=== PATIENT | male | born 1965 | race Caucasian/White ===

== ENCOUNTER → 2017-10-25 08:42 | Outpatient (CLI) | payer OTHER, SELFPAY ==
--- NOTE | 2017-10-25 08:44 | RAD_ITS ---
STUDY: X-RAY - ESOPHAGUS (BARIUM SWALLOW) WITH FLUOROSCOPY REASON FOR EXAM: Male, 52 years old. One-year history of dysphagia. TECHNIQUE: 17 view(s) of the esophagus were obtained following swallowing of barium. FLUOROSCOPY TIME (if supplied): (0:25) minutes/seconds COMPARISON: None. FINDINGS: There is no demonstrated esophageal foreign body. There is no demonstrated stricture or mucosal abnormality. There is a small hiatal hernia without gastric esophageal reflux. The patient ingested a 12 mm tablet of barium without any difficulty. Normal visualized aortic arch and descending thoracic aorta. Normal visualized pulmonary parenchyma. Normal visualized osseous structures of the thorax. RAD/Esophagus Only IMPRESSION: Small sliding hiatal hernia without evidence of gastroesophageal reflux at this time. Electronically Signed: Christiano Montoya MD at 9:22 EDT Tel [phone], Service support ,
== END ==
PROVIDERS: Family Provider Internal Medicine; PCP Internal Medicine; Visit Provider Internal Medicine
DX: R13.10 Dysphagia, unspecified (principal)
CPT/HCPCS: 74220

== ENCOUNTER 2019-08-03 22:50 | Emergency (ER) | payer OTHER, SELFPAY ==
[2019-08-03 22:51] VITALS: BP 177/101; PULSE 90; RESP 16; TEMP 36.4; O2SAT 100; BMI 24.9
--- NOTE | 2019-08-03 23:09 | EKG12_ITS ---
Test Reason : PAIN Blood Pressure : / mmHG Vent. Rate : 081 BPM Atrial Rate : 081 BPM P-R Int : 160 ms QRS Dur : 086 ms QT Int : 382 ms P-R-T Axes : 067 060 044 degrees QTc Int : 443 ms Normal sinus rhythm Normal ECG Confirmed by CLAU REYEZ, ROJELIO ([id number]), telegraph editor PRISCILLA VALENCIA ([id number]) on 08/05/2019 9:16:53 AM Referred By: AG Confirmed By:ROJELIO OLGUIN MD
--- NOTE | 2019-08-03 23:12 | ED.RN ---
NO OLD EKGS IN MUSE
[2019-08-03] MEDS: 0.9% Normal Saline 1,000 ML 999 ML IV (23:14)
[2019-08-03] MEDS: Ondansetron 4 MG/2 ML Vial IV (23:14)
--- NOTE | 2019-08-03 23:16 | PCM.CONS.GEN ---
Problem List (1) Food impaction of esophagus Status: Acute Qualifiers: Encounter type: initial encounter Qualified Code(s): T18.128A - Food in esophagus causing other injury, initial encounter Reason for Consult Date of Consultation: 08/03/19 History of Present Illness: The patient is a 54 year old M presented to the emergency room with inability to control his secretions. The patient reports that he ate steak today and he is now having substernal chest pain and unable to swallow saliva. He has tried warm water and cola. The patient reports he has had food stuck in his esophagus about 20 times. He is never had an EGD. He is on a PPI but has not been for the last few days. He takes a large amount of NSAIDs. Past Medical History Allergies No Known Allergies Allergy (Verified 08/03/19 22:51) Home Medications: Ambulatory Orders Medication Instructions Recorded Finasteride 1 mg PO DAILY 08/03/19 Insulin Aspart [Novolog Flexpen] See Protocol SQ DAILY 08/03/19 Insulin Glargine [Lantus SoloStar 08/03/19 Pen] Insulin Glargine [Lantus SoloStar 16 units SQ DAILY 08/03/19 Pen] Levothyroxine [Synthroid] 175 mcg PO DAILY 08/03/19 Lisinopril [Zestril] 2.5 mg PO DAILY 08/03/19 Omeprazole 20 mg PO DAILY 08/03/19 Rosuvastatin Calcium [Crestor] 10 mg PO QODAY 08/03/19 Sildenafil Citrate [Viagra] 100 mg PO PRN PRN 08/03/19 Surgical History: no surgical history Smoking Status: Never smoker - *Family History Sibling History Items: - - Holly's esophagus Review of Systems Constitutional: Denies: Anorexia, Fever HEENT: Reports: Difficulty Swallowing Cardiovascular: Reports: Chest Pain Respiratory: Denies: Cough, Shortness of Breath Gastrointestinal: Denies: Abdominal Pain Genitourinary: Denies: Dysuria Musculoskeletal: Reports: Back Pain. Denies: Joint Tenderness - Physical Exam Vitals/I&O's: Vital Signs Temp Pulse Resp BP Pulse Ox 97.6 F L 90 16 177/101 H 100 08/03/19 22:51 08/03/19 22:51 08/03/19 22:51 08/03/19 22:51 08/03/19 22:51 Oxygen Delivery Method Room Air Weight: 189 lb 2.506 oz Body Mass Index (BMI) 24.9 General: Alert, Oriented x3 Lungs: Normal air movement Cardiovascular: Regular rate, Regular Rhythm Abdomen: Soft, Non Tender, Non-Distended Current Medications Sodium Chloride () 1,000 mls @ 999 mls/hr IV .Q1H1M ONE Stop: 08/04/19 00:09 Last Admin: 08/03/19 23:14 Dose: 999 mls/hr Documented by: Assessment/Plan All Active Problems Food impaction of esophagus (Acute) 54-year-old male with esophageal food impaction 1. The patient has esophageal food impaction likely steak. The patient has a longstanding history of GERD as well as food impactions in the past. He is never had an EGD. 2. I recommend the patient have EGD with removal of the impacted foreign body. I do recommend that the patient have an outpatient EGD in the next week or two with biopsies and possible dilation. 3. I explained endoscopy in detail to the patient. I explained the risks including but not limited to stroke or heart attack with anesthesia, perforation of the GI tract, bleeding, infection. I explained that any of these could necessitate further emergency surgery. The patient understands and all questions were answered sufficiently. The patient wishes to proceed with procedure. Jai Shepard MD Pager: [facility] [address] [place] [address], [address] [place] [address] Office:
[2019-08-03 23:17] VITALS: BP 184/93; PULSE 91; RESP 20; O2SAT 100
--- NOTE | 2019-08-03 23:30 | ED.DCSUM_ITS ---
History of Present Illness Chief Complaint: Foreign Body Informant: Patient, Family Onset: Today Context: Sudden Onset Timing: Continuous Narrative: Patient is a 54-year-old male with history of diabetes mellitus type 1, hyperlipidemia, hypertension, hypothyroid and coronary artery disease presenting with food stuck in his throat. Patient was eating steak at 6 PM and piece got stuck in his esophagus. He was unable to spit it up or throwing up. He has no associated respiratory symptoms. Has not been able to swallow anything since and is not able to swallow his secretions. Patient to become hypoglycemic at home because he took his insulin right before eating. His blood sugar was 47. His who is a physician gave him dextrose and IV fluids. Patient states he often gets food stuck in his esophagus but is normally able to pass it and does not need to come to the emergency room. He had a colonoscopy but never had an EGD. He states his symptoms are usually better when he takes his omeprazole but he skipped a dose today. Patient denies any other complaints at this time. He does not have an insulin pump. He does not drink alcohol. He is never had any difficulty with sedation. Past Medical History - Allergies and Home Meds Allergies/Adverse Reactions: Allergies No Known Allergies Allergy (Verified 08/03/19 22:51) Primary Care Physician: Lina Kumar DO [Primary Care Provider] - Past Medical History: - - Hypertension, type 1 diabetes mellitus, hyperlip idemia, coronary artery disease, hypothyroid Surgical History: - - Colonoscopy Lives: Spouse/ Significant Other Smoking Status: Never smoker Alcohol: None Drugs: None Review of Systems General: Denies: Chills, Fever, Sweats Eyes: Denies: Visual changes - bilaterally, Diplopia ENT: Reports: - - Difficulty swallowing. Denies: Rhinorrhea, Sore throat Cardiovascular: Reports: Chest pain - Secondary to foreign body sensation in esophagus. Denies: Palpitations Respiratory: Denies: Dyspnea, Cough, Dyspnea on exertion Gastrointestinal: Reports: Nausea, Vomiting. Denies: Abdominal pain, Diarrhea, Melena, Hematochezia Genitourinary: Denies: Dysuria, Hematuria, Frequency Musculoskeletal: Denies: Back pain, Extremity Pain Skin: Denies: Rash, Wounds Neurological: Denies: Headache, Weakness, Numbness Physical Exam Vital Signs/Narrative: Vital Signs Temp Pulse Resp BP Pulse Ox 08/03/19 23:17 91 20 H 184/93 H 100 08/03/19 22:51 97.6 F L 90 16 177/101 H 100 Inital Vital Signs reviewed: Yes General: Well nourished, Well developed, No Acute Distress Head: Normocephalic, Atraumatic Eyes: Perrl, EOMI ENT: Moist mucous membranes, No rhinorrhea, - Neck: Supple, Nontender Cardiovascular: Regular rate, Regular rhythm, No murmurs Respiratory: No distress, CTA bilaterally, Chest nontender Abdomen: Soft, Nontender, Nondistended, Normal bowel sounds, - - Patient continually spitting up his secretions Back: Nontender, Normal Inspection Extremities: Nontender, No edema Skin: Normal color, No rash Neurological: Alert, Oriented x3, Cranial nerves II-XII grossly intact, Normal Strength, Normal Sensation Psychological: Normal affect, Normal Mood Diagnostic/Tx/Re-eval - Rhythm Strip Rhythm Strip: Sinus Rhythm Rate: 81 Ectopy: None - EKG Initial EKG Interpretation: Sinus Rhythm, - - Normal sinus rhythm at a rate of 81 Normal intervals Normal axis Normal ST segments - Medical Decision Making Patient evaluated for esophageal food impaction. Bedside EGD performed by Dr. Erwin See sedation note. Patient is able to drink water prior to discharge. He is monitored until sedation wears off. He is taken home by his . Patient is counseled on signs and symptoms requiring return to the em ergency room. Patient verbalizes agreement and understand this plan. Patient discharged home in stable and improved condition. Procedures Procedure(s): Procedural sedation for EGD-. EGD performed by Dr. Erwin. Patient placed on telemetry as well as end-tidal CO2. He is oxygenated on 6 L nasal cannula throughout the procedure. Patient is given a total of 140 mg of ibuprofen follow through small aliquots until adequate sedation is achieved throughout the procedure. Patient is a very small episode of drooling and regurgitation of a very small amount of stomach contents but no signs of aspiration. He has no hypoxia, apnea or hemodynamic instability throughout. Patient is monitored after the procedure until he has return of normal mentation. No obvious complications. Patient tolerated procedure well. ED Disposition - Plan for ED Patient: Disposition: Home or Assisted Living Diagnosis: Food impaction of esophagus Instructions: ESOPHAGEAL FOREIGN BODY, Resolved Referrals: Lina Kumar DO [Primary Care Provider] - Jai Shepard MD [STAFF PHYSICIAN] - Additional Instructions: Continue your omeprazole. Liquid diet for the next 24 hours then transition to a soft diet for total of 48 hours. Follow-up with Dr. Shepard for repeat endoscopy in 1 to 2 weeks. Return to emergency with any worsening symptoms.
[2019-08-03 23:35] VITALS: BP 174/107; PULSE 113; PULSE 123; PULSE 84; PULSE 92; RESP 13; RESP 14; RESP 16; RESP 27; O2SAT 100; O2SAT 99
[2019-08-03 23:42] VITALS: BP 168/83; PULSE 89; RESP 17; O2SAT 98
[2019-08-03] MEDS: Propofol 200 MG/20 ML Vial IV BOLUS (23:43)
[2019-08-03 23:47] VITALS: BP 141/71; PULSE 84; RESP 22; O2SAT 99
[2019-08-03 23:52] VITALS: BP 130/72; PULSE 79; RESP 21; O2SAT 99
[2019-08-04] VITALS: BP 117/60; PULSE 76; RESP 17; O2SAT 99
--- NOTE | 2019-08-04 | OP.EGD_ITS ---
Patient Name: Kashmir Price Procedure Date: 08/03/2019 11:29 PM Date of : 1965 Age: 54 Procedure: Upper GI endoscopy Indications: Foreign body in the esophagus Providers: Jai Shepard MD Medicines: Monitored Anesthesia Care Patient Profile: This is a 54 year old male. Refer to note in patient chart for documentation of history and physical. Complications: No immediate complications. Estimated blood loss: Minimal. Procedure: Pre-Anesthesia Assessment: - Prior to the procedure, a History and Physical was performed, and patient medications and allergies were reviewed. The patient's tolerance of previous anesthesia was also reviewed. The risks and benefits of the procedure and the sedation options and risks were discussed with the patient. All questions were answered, and informed consent was obtained. Prior Anticoagulants: The patient has taken no previous anticoagulant or antiplatelet agents. After reviewing the risks and benefits, the patient was deemed in satisfactory condition to undergo the procedure. After obtaining informed consent, the endoscope was passed under direct vision. Throughout the procedure, the patient's blood pressure, pulse, and oxygen saturations were monitored continuously. The gastroscope was introduced through the mouth, and advanced to the second part of duodenum. The upper GI endoscopy was accomplished without difficulty. The patient tolerated the procedure well. Scope In: 11:38:21 PM Scope Out: 11:40:20 PM Total Procedure Duration Time 0 hours 1 minute 59 seconds Findings: Food was found in the lower third of the esophagus. Removal of food was accomplished. A mild Schatzki ring was found at the gastroesophageal junction. Impression: - Food in the lower third of the esophagus. - Mild Schatzki ring. - No specimens collected. Recommendation: - Discharge patient to home. - Full liquid diet for 2 days. - Continue present medications. - Return to my office in 1 week. Procedure Code(s): --- Professional --- 63651, Esophagogastroduodenoscopy, flexible, transoral; with removal of foreign body(s) Diagnosis Code(s): --- Professional --- T18.128A, Food in esophagus causing other injury, initial encounter K22.2, Esophageal obstruction T18.108A, Unspecified foreign body in esophagus causing other injury, initial encounter CPT copyright 2017 [employer]. All rights reserved. The codes documented in this report are preliminary and upon umbrella tipper machine review may be revised to meet current compliance requirements. Jai Shepard MD 08/03/2019 11:59:26 PM This report has been signed electronically. Number of Addenda: 0 Note Initiated On: 08/03/2019 11:29 PM
--- NOTE | 2019-08-04 | OP.CCLET_ITS ---
08/03/2019 Lina Fast Re : Upper GI endoscopy procedure for Kashmir Kumar This procedure was performed on Saturday, August 03, 2019. My impressions and recommendations are as follows: Impressions : - Food in the lower third of the esophagus. - Mild Schatzki ring. - No specimens collected. Recommendations : - Discharge patient to home. - Full liquid diet for 2 days. - Continue present medications. - Return to my office in 1 week. My findings are described in the full procedure note, which is enclosed. If I can be of further assistance, please feel free to contact me at Doctor phone number(s): , Work: . Sincerely, Jai Shepard MD 08/03/2019 11:59:26 PM This report has been signed electronically.
[2019-08-04 00:32] VITALS: BP 150/84; O2SAT 99
[2019-08-04 00:33] VITALS: BP 150/84; PULSE 73; RESP 18; O2SAT 99
== END 2019-08-04 00:33 | disposition home or self-care (01) ==
PROVIDERS: Emergency Provider Emergency Medicine; PCP Internal Medicine; Visit Provider Surgery
PROC: 0DJ08ZZ Inspection of Upper Intestinal Tract, Via Natural or Artificial Opening Endoscopic (ICD-10-PCS; CPT 43235; principal; 2019-08-03 23:45)
DX: T18.128A Food in esophagus causing other injury, initial encounter (principal); X58.XXXA Exposure to other specified factors, initial encounter; Y93.89 Activity, other specified; Y92.9 Unspecified place or not applicable; K22.2 Esophageal obstruction; K21.9 Gastro-esophageal reflux disease without esophagitis; E78.5 Hyperlipidemia, unspecified; I25.10 Atherosclerotic heart disease of native coronary artery without angina pectoris; I10 Essential (primary) hypertension; E03.9 Hypothyroidism, unspecified; E10.9 Type 1 diabetes mellitus without complications; Z79.4 Long term (current) use of insulin
CPT/HCPCS: 43247; 93005; 96361; 96374; 99285; J7030; A4216; J2405

== ENCOUNTER 2019-08-25 07:23 | Day surgery (SDC) | payer OTHER, SELFPAY ==
[2019-08-25] VITALS (7 sets, daily range): BP systolic 106–143; BP diastolic 72–83; PULSE 56–73; RESP 15–16; TEMP 36.8–36.9; O2SAT 97–100; BMI 24.7
--- NOTE | 2019-08-25 | GASB_PTH ---
PATIENT: DARRIUS PARKER LOC: EN U#:[id number] AGE/SX: 54/M ROOM: RE08/25/[address]: Dr. Jai Shepard MD : 1965 BED: DIS: 08/25/2019 SPEC #: [id number] RECD: 08/25/19 10:30 STATUS: AMANDA TERRI #: [id number] ERICK: 08/25/19 00:[address]: Jai Shepard DEPT: SURGICAL PATHOLOGY RECD BY: Issac Manzo ENTERED: 08/25/19 10:30 SP TYPE: Gastric Bx OTHR DR: Dr. Lina Kumar DO Tissues: A - Gastric mucous membrane B - Esophagus, NOS Procedures: Surgery Specimen Level IV HEADER OPER[place] [place] DIAGNOSIS: Food impaction of esophagus TISSUE SUBMITTED: A - Antrum biopsy for H. pylori and path, B - Mid esophagus biopsy MICROSCOPIC DIAGNOSIS A. Gastric antrum, biopsy: Mild chronic gastritis. B. Mid esophagus, biopsy: Fragments of benign squamous mucosa. No evidence of inflammation. AM:marcos 08/26/19 COMMENT A. The results of immunohistochemistry for Helicobacter pylori will be reported separately ([id number]). MICROSCOPIC DESCRIPTION Slides are reviewed. GROSS DESCRIPTION A - Received in fixative is one container labeled with the patient's name and designated antrum biopsy. The specimen consists of two irregular fragments of light lenz soft tissue that in aggregate measure 0.5 x 0.5 x 0.3 cm. The specimen is totally submitted in one cassette. B - Received in fixative is one container labeled with the patient's name and designated mid esophagus biopsy. The specimen consists of two irregular fragments of light lenz soft tissue that in aggregate measure 0.3 x 0.3 x 0.1 cm. The specimen is totally submitted in one cassette. / AM:marcos 08/25/19 TC:3 CPT: 48279 x2
[2019-08-25] MEDS: Lactated Ringers 1,000 ML 100 ML IV (07:55)
[2019-08-25 08:00] LABS: Bedside Glucose 150 mg/dL (70-110)
--- NOTE | 2019-08-25 08:25 | HP.PCM_ITS ---
History of Present Illness Date of Admission: 08/25/19 The patient is a 54 year old M presents after having dysphasia and food impaction. The patient reports longstanding GERD. He was started back on his PPI after he had the dysphasia no more food is been sticking. Past Medical/Surgical History - Planned Operation Planned Operative Procedure/s: EGD Date of Operative Procedure: 08/25/19 Permit Signed: Yes S.O.S: No Is This Patient Having a Total Joint: No - Previous Hospitalizations/Surgeries HX of Surgeries: R KNEE SURGERY 2011. SINUA INFECTION 2007 Any Problems With Anesthesia: No You/Your Family Experience Fever (Hyperthermia) With Anes: No Cholinesterase deficiency: No - Cardiovascular Hx Chest Pain within Last 2 months: No Hx of Irregular Heartbeat and/or Afib: No Hx Heart Attack: No Hx Congestive Heart Failure: No Hx Rheumatic Fever: No Hx Hypertension: Yes Hx Internal Defibrillator: No Hx Pacemaker: No Hx Cardiac Catheterization: No Hx Cardiac Surgery/Stents/Etc.: No Hx Stress Test: Yes HX Edema: No Hx Pain in Legs when Walking/Leg Cramps: No - Respiratory Chronic Cough: No HX of Shortness of Breath: No Hoarseness: No Hx Chronic Obstructive Pulmonary Disease (COPD): No Hx Asthma: No Hx Emphysema: No Hx Sleep Apnea: No CPAP: No Hx Oxygen Use at Home: No Hx Respiratory Tract Infection/Cold (presently): No Do You Snore Loudly (louder than talking or can be heard): No Do You Often Feel Tired/ Fatigued/ Sleepy Dring Daytime?: No Has Anyone Observed You Stop Breathing During Sleep?: No Result (for STOP score): Negative Hx Smoking: No Smoking Status: Never smoker - Gastrointestinal Hx Gastroesophageal Reflux: No Hx Gastrointestinal Disorders: No Hx Gastrointestinal Bleed: No Hx Ulcer: No Hx Hiatal Hernia: No Difficulty Chewing/Swallowing: No Recent Onset of Swallowing Problems: No Special diet followed at home: No Hx Unplanned Weight Loss of 20#: No HX Unplanned Weight Gain of 20#: No - Neurological Hx Seizures: No HX Syncope/Blackout Spells/Unconsciousness: No Hx CVA/Stroke: No Hx Transient Ischemic Attacks (TIA): No Hx Multiple Sclerosis: No Hx Parkinson's Disease: No Hx Head/Neck Injury: No Hx Headaches: No Hx Back Injury/Pain: No Recent Onset of Speech Difficulty: No Restless Legs: No Does patient have nerve stimulator: No Patient instructed to have device shut off: No Rep notified?: No - Blood Disorder Hx Leukemia: No Bleeding Tendencies: No Hx Deep Vein Thrombosis: No Hx High Cholesterol: No Blood Transmitted Disease: No Hx Hepatitis: No Hx Cirrhosis: No Hx Anemia: No Hx Blood Disorders: No - Reproduction : No - Musculoskeletal Hx Arthritis: No Hx Rheumatoid Arthritis: No Hx Gout: No Recent Onset of an Orthopedic Problem: No - Endocrine Hx Diabetes: Yes Insulin: Yes Thyroid Disease: Yes Hx Steroid Therapy: No - Psycho/Social Hx Substance Use: No Hx Alcohol Use: No Hx Anxiety: No Hx Depression: No Mental Illness: No Hx Dementia: No - Miscellaneous Hx Cancer: No Recent Exposure to Contagious Disease: No Active MRSA: No Hx of C-Diff: No Any Loose Teeth: No Allergies No Known Allergies Allergy (Verified 08/25/19 07:33) Sibling - - Holly's esophagus - Discharge Is Pt Admitted From a Jail, or a Halfway: No After D/C, Where Do you Plan to Go: Return Home - Physical Exam Vitals/I&O's: Vital Signs Temp Pulse Resp BP Pulse Ox 98.3 F 73 15 143/78 H 100 08/25/19 07:49 08/25/19 07:49 08/25/19 07:49 08/25/19 07:49 08/25/19 07:49 Oxygen Delivery Method Room Air Weight: 188 lb 0.869 oz Body Mass Index (BMI) 24.7 General: Alert, Oriented x3 Lungs: Normal air movement Cardiovascular: Regular rate, Regular Rhythm Abdomen: Soft, Non Tender, Non-Distended Laboratory Results 08/25/19 07:39: POC Glucose 150 H 08/25/19 08:00: Sodium Pending, Potassium Pending, Chloride Pending, Carbon Dioxide Pending, Anion Gap Pending, BUN Pending, Creatinine Pending, Est GFR (MDRD) Af Amer Pending, Est GFR (MDRD) Non-Af Pending, BUN/Creatinine Ratio Pending, Glucose Pending, Calcium Pending, Phosphorus Pending, Magnesium Pending, Total Bilirubin Pending, Direct Bilirubin Pending, AST Pending, ALT Pending, Alkaline Phosphatase Pending, Total Protein Pending, Albumin Pending, Triglycerides Pending, Cholesterol Pending, LDL Cholesterol Pending, VLDL Cholesterol Pending, HDL Cholesterol Pending 08/25/19 08:00: Hemoglobin A1c Pending Current Medications Lactated Ringer's () 1,000 mls @ 100 mls/hr IV .Q10H BLAKE Last Admin: 08/25/19 07:55 Dose: 100 mls/hr Documented by: Assessment/Plan All Active Problems Food impaction of esophagus (Acute) 54-year-old male with dysphasia 1. Patient had food impaction and EGD cleared the food impaction. At that time I believe I saw Schatzki's ring. The patient has longstanding GERD. He was started back on his PPI. I discussed performing EGD today with possible balloon dilation as well as biopsies for eosinophilic esophagitis. I explained endoscopy in detail to the patient. I explained the risks including but not limited to stroke or heart attack with anesthesia, perforation of the GI tract, bleeding, infection. I explained that any of these could necessitate further emergency surgery. The patient understands and all questions were answered sufficiently. The patient wishes to proceed with procedure. Jai Shepard MD Pager: [facility] [address] [place] [address], [address] [place] [address] Office: Surgery Risks - Colonoscopy Risks Include but are not Limited To: Risks include but are not limited to: Bleeding, perforation requiring further surgery, inability to complete colonoscopy requiring barium enema.
[2019-08-25 08:28] LABS: AST(SGOT) 23 U/L (15-37); Alanine Aminotransfer ALT/SGPT 22 U/L (16-61); Albumin, Serum 3.3 g/dL (3.2-5.0); Alkaline Phosphatase 67 U/L (45-117); Anion Gap 4 (5-15); BUN 25 mg/dL (7-18); BUN/Creat Ratio 23.4 RATIO (10-20); Bilirubin, Direct 0.17 mg/dL (0.00-0.30); Calcium,Total 9.1 mg/dL (8.5-10.1); Chloride 106 mmol/L (98-107); Cholesterol 147 mg/dL (200); Creatinine, Serum 1.07 mg/dL (0.70-1.30); EST Glomerular Filtration Rate 77 mL/min (>60); Est Glom Filt Rate - Afr Amer 93 mL/min (>60); Estimated Creatinine Clearance 89.19 ml/min; Globulin 3.2 g/dL (2.2-4.2); Glucose 152 mg/dL (74-106); High Density Lipoprotein 73 mg/dL; Magnesium 1.9 mg/dL (1.6-2.6); Phosphorus 2.5 mg/dL (2.5-4.9); Potassium 4.1 mmol/L (3.5-5.1); Protein, Total 6.5 g/dL (6.4-8.2); Sodium Level 138 mmol/L (136-145); Triglycerides 59 mg/dL; Very Low Density Lipoprotein 12 mg/dL (5-40)
--- NOTE | 2019-08-25 08:30 | IMM_PTH ---
PATIENT: DARRIUS PARKER LOC: EN U#:[id number] AGE/SX: 54/M ROOM: RE08/25/[address]: Dr. Jai Shepard MD : 1965 BED: DIS: 08/25/2019 SPEC #: [id number] RECD: 08/25/19 12:18 STATUS: AMANDA REQ #: [id number] ERICK: 08/25/19 08:[address]: Jai Shepard DEPT: IMMUNOHISTOCHEMISTRY RECD BY: Corry Villa ENTERED: 08/25/19 12:19 SP TYPE: IMMUNO OTHR DR: Dr. Lina Kumar DO Tissues: A - Stomach, NOS Procedures: H Pylori (initial) PHYSICIAN & INSTITUTION [place] [id number] SPECIMEN INFORMATION: Tissue Source: A - Antrum biopsy Clinical Info: Food impaction of esophagus Specimen Number: [id number] CPT code: 71358 METHODOLOGY: Deparaffinized sections of prefer/formalin-fixed tissue or PAP/DQ stained slides are incubated with monoclonal/polyclonal antibodies/oligonucleotide probes. Localization is made via biotin free immunoperoxidase method. Appropriate controls are performed and reacted as expected. Results on target cell population are indicated in the following table: RESULTS: ANTIBODY / CLONE RESULT Block A H Pylori (polyclonal) negative These tests were developed and their performance characteristics determined by [facility]. They may not have been cleared or approved by the U.[place]. Food and Drug Administration. The FDA has determined that such clearance or approval is not necessary. INTERPRETATION: A. Antrum, biopsy: Negative for Helicobacter pylori organisms. AM:marcos 08/27/19
[2019-08-25 08:33] LABS: Hemoglobin A1c 7.3 % (4.2-6.3)
--- NOTE | 2019-08-25 08:44 | OP.EGD_ITS ---
Patient Name: Kashmir Price Procedure Date: 08/25/2019 8:24 AM Date of : 1965 Age: 54 Procedure: Upper GI endoscopy Indications: Dysphagia Providers: Jai Shepard MD Referring MD: Lina Kumar Medicines: Monitored Anesthesia Care Patient Profile: This is a 54 year old male. Refer to note in patient chart for documentation of history and physical. Complications: No immediate complications. Estimated blood loss: Minimal. Procedure: Pre-Anesthesia Assessment: - Prior to the procedure, a History and Physical was performed, and patient medications and allergies were reviewed. The patient's tolerance of previous anesthesia was also reviewed. The risks and benefits of the procedure and the sedation options and risks were discussed with the patient. All questions were answered, and informed consent was obtained. Prior Anticoagulants: The patient has taken no previous anticoagulant or antiplatelet agents. After reviewing the risks and benefits, the patient was deemed in satisfactory condition to undergo the procedure. After obtaining informed consent, the endoscope was passed under direct vision. Throughout the procedure, the patient's blood pressure, pulse, and oxygen saturations were monitored continuously. The gastroscope was introduced through the mouth, and advanced to the second part of duodenum. The upper GI endoscopy was accomplished without difficulty. The patient tolerated the procedure well. Scope In: 8:32:28 AM Scope Out: 8:39:55 AM Total Procedure Duration Time 0 hours 7 minutes 27 seconds Findings: A non-obstructing Schatzki ring was found at the gastroesophageal junction. A TTS dilator was passed through the scope. Dilation with an 18-19-20 mm balloon dilator was performed to 20 mm. The dilation site was examined following endoscope reinsertion and showed no perforation. Biopsies were taken with a cold forceps in the mid esophagus for histology. Biopsies were taken with a cold forceps for histology. The examined duodenum was normal. The stomach was normal. Biopsies were taken with a cold forceps in the gastric antrum for Helicobacter pylori testing. Impression: - Non-obstructing Schatzki ring. Dilated. - Normal examined duodenum. - Normal stomach. - Biopsies were taken with a cold forceps for histology in the mid esophagus. - Biopsies were taken with a cold forceps for histology. - Biopsies were taken with a cold forceps for Helicobacter pylori testing. Recommendation: - Discharge patient to home. - Mechanical soft diet for 2 days. - Continue present medications. - Await pathology results. Procedure Code(s): --- Professional --- 75117, Esophagogastroduodenoscopy, flexible, transoral; with transendoscopic balloon dilation of esophagus (less than 30 mm diameter) Diagnosis Code(s): --- Professional --- K22.2, Esophageal obstruction R13.10, Dysphagia, unspecified CPT copyright 2017 [employer]. All rights reserved. The codes documented in this report are preliminary and upon valve machine operator review may be revised to meet current compliance requirements. Jai Shepard MD 08/25/2019 8:43:27 AM This report has been signed electronically. Number of Addenda: 0 Note Initiated On: 08/25/2019 8:24 AM
--- NOTE | 2019-08-25 08:44 | OP.CCLET_ITS ---
08/25/2019 Lina Fast Re : Upper GI endoscopy procedure for Kashmir Kumar This procedure was performed on Sunday, August 25, 2019. My impressions and recommendations are as follows: Impressions : - Non-obstructing Schatzki ring. Dilated. - Normal examined duodenum. - Normal stomach. - Biopsies were taken with a cold forceps for histology in the mid esophagus. - Biopsies were taken with a cold forceps for histology. - Biopsies were taken with a cold forceps for Helicobacter pylori testing. Recommendations : - Discharge patient to home. - Mechanical soft diet for 2 days. - Continue present medications. - Await pathology results. My findings are described in the full procedure note, which is enclosed. If I can be of further assistance, please feel free to contact me at Doctor phone number(s): , Work: . Sincerely, Jai Shepard MD 08/25/2019 8:43:27 AM This report has been signed electronically.
== END 2019-08-25 09:20 | disposition home or self-care (01) ==
LOC: EN 07:24 → AC 07:25
PROVIDERS: Anesthesiology; PCP Internal Medicine; Referring Provider Internal Medicine; Visit Provider Surgery
PROC: 0DJ08ZZ Inspection of Upper Intestinal Tract, Via Natural or Artificial Opening Endoscopic (ICD-10-PCS; CPT 43235; principal; 2019-08-25 08:25)
DX: R13.10 Dysphagia, unspecified (principal); K29.50 Unspecified chronic gastritis without bleeding; K22.2 Esophageal obstruction; E11.9 Type 2 diabetes mellitus without complications; I10 Essential (primary) hypertension; K21.9 Gastro-esophageal reflux disease without esophagitis; Z79.4 Long term (current) use of insulin
CPT/HCPCS: 43239; 43249; 80048; 80061; 80076; 82962; 83036; 83735; 84100; 88305; 88342; J7120; J2405

== ENCOUNTER → 2020-01-18 06:33 | Outpatient (CLI) | payer OTHER, SELFPAY ==
[2019-08-25 07:49] VITALS: BMI 24.7
--- NOTE | 2020-01-18 09:00 | STRESSREP ---
Stress Test Report Exercise myocardial perfusion stress test. 54-year-old man with a history of diabetes mellitus and coronary artery risk factors. Stress protocol: Resting EKG demonstrates normal sinus rhythm with a rate of 75 bpm resting blood pressure is 128/78 mmHg. The patient exercised according to the regular Kamran protocol for a total duration of 9 minutes and 30 seconds. The maximum heart rate attained was 179 bpm which was 107% of max impacted heart rate the maximum workload was 10.9 metabolic equivalents. The patient maintained sinus rhythm throughout the recording. At rest there were no ST or T wave changes noted to suggest ischemia at peak exercise upsloping ST changes only were noted with no meet the criteria for ischemia. No clinical angina was noted the test was terminated due to shortness of breath and the target heart rate being achieved. The peak blood pressure of 212/88 mmHg. Myocardial perfusion protocol. 13.9 mCi of technetium 99m sestamibi was injected at rest. The patient exercised according to regular Kamran protocol for 9-1/2 minutes. At peak exercise 43.2 mCi of technetium 99m sestamibi was injected stress images were obtained stress and rest images were reconstructed and compared in the short axis vertical long horizontal long axis. Gated images were also obtained. Perfusion SPECT analysis: Review of the images demonstrate normal uptake of tracer noted in all areas of the myocardium the resting images similar demonstrate normal uptake of tracer noted in all areas of the myocardium. No areas of reversibility are noted to suggest ischemia and no previous infarct is noted. Gated SPECT analysis: The gated ejection fraction is noted to be 63%. Conclusion: Normal pharmacologic myocardial perfusion stress test. Preserved ejection fraction.
== END ==
PROVIDERS: PCP Internal Medicine; Referring Provider Internal Medicine; Visit Provider Internal Medicine
DX: R07.9 Chest pain, unspecified (principal)
CPT/HCPCS: 78452; 93017; A9500; A4216

== ENCOUNTER 2021-04-22 12:57 | Outpatient (CLI) | payer BC, SELFPAY ==
[2021-04-22 13:31] VITALS: BP 132/80; PULSE 85; RESP 16; TEMP 36.6; O2SAT 98; BMI 23.1
[2021-04-22] MEDS: 0.9% Saline Lock 10 ML Syringe IV (13:41)
[2021-04-22 14:13] VITALS: BP 131/74; PULSE 75; RESP 16; TEMP 36.6; O2SAT 100
[2021-04-22 15:21] VITALS: BP 136/74; PULSE 69; RESP 16; TEMP 36.6; O2SAT 100
== END 2021-04-22 15:23 | disposition home or self-care (01) ==
LOC: MS3OUT 12:58 → MS3 12:59
PROVIDERS: PCP Internal Medicine; Visit Provider Nurse Practitioner Adult Health
DX: Z23 Encounter for immunization (principal); U07.1 COVID-19
CPT/HCPCS: J7050; M0245; Q0245; A4216

== ENCOUNTER 2021-04-22 19:18 | Emergency (ER) | payer BC, SELFPAY ==
[2021-04-22 19:19] VITALS: PULSE 87; RESP 19; TEMP 37.4; O2SAT 99; BMI 24.3
[2021-04-22 19:23] VITALS: BP 175/98
--- NOTE | 2021-04-22 19:24 | EKG12_ITS ---
Test Reason : CP Blood Pressure : / mmHG Vent. Rate : 084 BPM Atrial Rate : 084 BPM P-R Int : 152 ms QRS Dur : 082 ms QT Int : 350 ms P-R-T Axes : 069 061 052 degrees QTc Int : 413 ms Normal sinus rhythm with sinus arrhythmia Normal ECG Confirmed by CLAU REYEZ, ROJELIO ([id number]), tape editor PRISCILLA VALENCIA ([id number]) on 04/25/2021 8:05:16 AM Referred By: MEIR Confirmed By:ROJELIO OLGUIN MD
--- NOTE | 2021-04-22 19:30 | RAD_ITS ---
STUDY: X-RAY CHEST REASON FOR EXAM: Male, 55 years old. Pleuritic chest pain, history of Covid TECHNIQUE: Frontal portable view of the chest COMPARISON: None. FINDINGS: The lungs are clear and expanded. There is no demonstrated pleural abnormality. Normal size heart. Normal mediastinum and claude. Normal visualized pulmonary arteries. Normal visualized aortic arch and descending thoracic aorta. Normal visualized thoracic spine. Normal visualized ribs, clavicles, and shoulders. There is no demonstrated abnormality of the visualized soft tissue structures of the upper abdomen. RAD/Chest 1 View (Portable) IMPRESSION: Normal x-ray examination of the chest. Electronically Signed: Gustavo Velez MD at 19:58 EDT Tel , Service support ,
--- NOTE | 2021-04-22 19:30 | ED.VIS.CHEST ---
HPI History of Present Illness Chief Complaint: Chest Pain Detail of Chief Complaint: Midsternal with pleuritic component after monoclonal therapy Informant: patient and spouse/S.O. Onset/Context/Timing Onset: Today Activity at onset: sudden and rest Timing: Continuous and Waxes and wanes Quality: Positive for Aching Location: Substernal Current Severity: Mild Maximum Severity: Moderate Worsened By: Breathing and Coughing; Not Worsened By Exertion, Movement of Arm, Movement of Torso, Eating and Palpation Relieved By: Nothing Associated Symptoms: Positive for Dyspnea, Cough and Fever; Negative for Nausea, Vomiting, Diaphoresis, Lightheadedness, Acid Reflux and Palpitations Narrative Narrative: Patient is a middle-age male with history of type 1 diabetes, hypertension, hypercholesterolemia who was diagnosed with Covid. Symptoms started yesterday. He has upper respiratory symptoms. He denies loss of taste or smell. He denies history of VTE. Denies leg pain, swelling discoloration. Symptoms started after monoclonal therapy. There is a pleuritic component. He does have history of hypothyroidism and GERD. There is history of Schatzki ring. He did have a stress test performed recently by Dr. Randall and was unremarkable with good workload. Prior Similar Symptoms: No CVD Risk Factors: Positive for Hypertension, Diabetes and Hypercholesterolemia; Negative for Smoking PE Risk Factors: Positive for - (Diagnosis with Covid); Negative for Recent Travel/Surgery, Recent Immobilization, Prior DVT or PE, Cancer and OCP + Smoking + >/=35 TAD Risk Factors: Positive for Hypertension; Negative for Marfan's Syndrome and Family History [facility] Medical History (Updated 04/22/21 @ 22:[address] Gray Phillip MD) Coronary artery disease Diabetes Schatzki's ring Home Medications finasteride 1 mg PO DAILY 08/03/19 [History Last Taken 1 Day Ago ~04/21/21] insulin aspart U-100 See Protocol SQ DAILY 08/03/19 [History Last Taken 1 Day Ago ~04/21/21] insulin glargine 10 units SQ ACHS 08/03/19 [History Last Taken 1 Day Ago ~04/21/21] levothyroxine 175 mcg PO DAILY 08/03/19 [History Last Taken 1 Day Ago ~04/21/21] lisinopril 2.5 mg PO DAILY 08/03/19 [History Last Taken 1 Day Ago ~04/21/21] omeprazole 20 mg PO DAILY 08/03/19 [History Last Taken 1 Day Ago ~04/21/21] rosuvastatin 10 mg PO QODAY 08/03/19 [History Last Taken 1 Day Ago ~04/21/21] sildenafil 100 mg PO PRN PRN 08/03/19 [History Last Taken 1 Day Ago ~04/21/21] insulin glargine [Lantus U-100 Insulin] 16 unit SUBCUT DAILY 04/22/21 [History Last Taken 1 Day Ago ~04/21/21] Allergy/AdvReac Type Severity Reaction Status Date / Time No Known Allergies Allergy Verified 08/25/19 07:33 Surgical History no surgical history no surgical history Social History (Updated 04/22/21 @ 19:[address] Gray Phillip MD) household members: spouse Smoking Status: Never smoker substance use type: does not use ROS ROS ED Constitutional Constitutional ED: Reports fever(s) and sweats; Denies chills, subjective or weight loss Eyes Eyes: Reports none ENT ENT ED: Reports rhinorrhea and sore throat; Denies ear pain Cardiovascular Cardiovascular: Reports as per HPI and chest pain; Denies orthopnea or paroxysmal nocturnal dyspnea Respiratory/Chest Respiratory/Chest: Reports cough, dyspnea and dyspnea on exertion; Denies orthopnea, paroxysmal nocturnal dyspnea or sputum Gastrointestinal Gastrointestinal: Reports nausea; Denies abdominal pain, constipation, diarrhea or vomiting Genitourinary Genitourinary ED: Denies dysuria, hematuria or urinary frequency Musculoskeletal Musculoskeletal: Reports myalgias; Denies back pain or neck pain Integumentary Denies rash Neurologic Neurologic: Reports headache(s); Denies weakness Endocrine Endocrinology: Denies polydipsia, polyphagia or polyuria Hematologic/Lymphatic Hematologic/Lymphatic: Denies easy bleeding or easy bruising EXAM Physical Exam Const Vital Signs: 04/22/21 19:19 04/22/21 19:22 04/22/21 19:23 Temperature 99.4 F H Temperature Source Temporal Pulse Rate 87 Respiratory Rate 19 H Respiratory Effort Normal Respiratory Pattern Normal Blood Pressure 175/98 H Blood Pressure Mean 123 Pulse Ox 99 Oxygen Delivery Method Room Air 04/22/21 21:28 Temperature Temperature Source Pulse Rate 83 Respiratory Rate 22 H Respiratory Effort Respiratory Pattern Blood Pressure 149/90 H Blood Pressure Mean 109 Pulse Ox 97 Oxygen Delivery Method Room Air Positive well nourished and well developed General Appearance ED: well developed and NAD; Negative for pallor HEENT Reports moist mucous membranes normocephalic and atraumatic Eyes PERRL and EOMs intact bilaterally General Eye ED: Negative for pale conjunctiva or scleral icterus Neck no lymphadenopathy, supple and no JVD Resp normal respiratory effort and No clear to auscultation bilaterally Effort and Inspection: respiratory distress Auscultation: rales right base Cardio regular rate, regular rhythm, S1 normal heart sound, S2 normal heart sound and no murmurs GI normal to inspection, nondistended, normoactive bowel sounds, soft to palpation and non-tender Back/Spine no CVA tenderness Extremity normal to inspection General Extremety ED: Negative for edema or tenderness General Extremity: Negative for edema Neuro oriented x3, CN's II-XII intact bilaterally and no sensory deficits noted Sensorium / Orientation: awake and alert Psych mental status grossly normal Skin no rashes or lesions noted and no wounds General Skin Exam: Negative for jaundice or pallor Heart Score History: Slightly/Non-Suspicious ECG: Normal Age: >45 - <65 years Risk Factors: >/= 3 Risk Factors or History of CAD Score: 3 MDM MDM MDM Narrative Medical decision making narrative: Patient presents with atypical chest pain. This may represent cardiac versus noncardiac. Noncardiac causes would include esophagitis, peptic ulcer disease, Covid pneumonia, pleurisy, pulmonary embolus. Lab Data Attestation: I reviewed the patient's lab results. Lab results narrative: CBC and H&H unremarkable. D-dimer is normal. Electrolyte panel reveals a BUN of 21 and glucose of 117 which are mildly elevated. Troponin is normal at 10 however it is not less than 7 therefore 2-hour needs to be ordered. 2-hour troponin is 8. Therefore patient can be discharged home. He and his were informed of results. The discomfort may be due to Covid infection or the monoclonal infusion. Labs: Laboratory Results - last 24 hr 04/22/21 04/22/21 04/22/21 19:25 19:25 19:25 WBC 4.8 RBC 5.04 Hgb 15.1 Hct 44.5 MCV 88.3 MCH 30.0 MCHC 33.9 RDW Std Deviation 39.2 RDW Coeff of Elier 12.0 Plt Count 249 MPV 9.6 Immature Gran % (Auto) 0.200 Neut % (Auto) 58.2 Lymph % (Auto) 22.0 [place] % (Auto) 14.4 H Eos % (Auto) 4.8 Baso % (Auto) 0.4 Absolute Neuts (auto) 2.8 Absolute Lymphs (auto) 1.05 Nucleated RBC % 0 D-Dimer Quant (PE/DVT) 0.42 Sodium 135 L Potassium 3.9 Chloride 103 Carbon Dioxide 28.0 Anion Gap 4 L BUN 21 H Creatinine 1.16 Estim Creat Clear Calc 81.32 Est GFR (MDRD) Af Amer 84 Est GFR (MDRD) Non-Af 69 BUN/Creatinine Ratio 18.1 Glucose 117 H Calcium 9.4 Troponin I High Sens 10 04/22/21 21:22 WBC RBC Hgb Hct MCV MCH MCHC RDW Std Deviation RDW Coeff of [place]lier Plt Count MPV Immature Gran % (Auto) Neut % (Auto) Lymph % (Auto) [place] % (Auto) Eos % (Auto) Baso % (Auto) Absolute Neuts (auto) Absolute Lymphs (auto) Nucleated RBC % D-Dimer Quant (PE/DVT) Sodium Potassium Chloride Carbon Dioxide Anion Gap BUN Creatinine Estim Creat Clear Calc Est GFR (MDRD) Af Amer Est GFR (MDRD) Non-Af BUN/Creatinine Ratio Glucose Calcium Troponin I High Sens 8 Radiography Chest X-Ray - ED: 1 View, Read by ED Physician, Normal, Heart, Lungs, Mediastinum, Bony Structures and No Acute Disease Diagnostic Testing: Clinical Impression(s) from Imaging Studies Chest X-Ray 04/22/21 19:30 IMPRESSION: Normal x-ray examination of the chest. Electronically Signed: Gustavo Velez MD at 19:58 EDT Tel , Service support , EKG Initial EKG: Attestation: I personally reviewed and interpreted this EKG as follows: Interpretation: Sinus Rhythm ('s sinus rhythm with a ventricular rate 84. There is respiratory variance noted. EKG is otherwise normal. MO interval 202 ms. Cures duration 82 ms. QT duration 3 and 50 ms. [place] is normal.) Discharge Plan Triage Chief Complaint: Chest Pain ED Provider: Gray Phillip Dx/Rx/DC Orders Clinical Impression: Chest pain, COVID-19 virus infection Instructions: Coronavirus Disease 2019 (COVID-19): Caring for Yourself or Others, ED Chest Pain, Noncardiac Prescriptions: No Action levothyroxine 175 MCG tablet 175 mcg PO DAILY RF: 0 sildenafil 100 MG tablet 100 mg PO PRN PRN (Reason: Not Specified) RF: 0 lisinopril 2.5 MG tablet 2.5 mg PO DAILY RF: 0 finasteride 1 MG tablet 1 mg PO DAILY RF: 0 insulin aspart U-100 100 unit/mL (3 mL) insulin pen See Protocol units SQ DAILY RF: 0 rosuvastatin 10 MG tablet 10 mg PO QODAY RF: 0 insulin glargine 100 unit/mL (3 mL) insulin pen 10 units SQ ACHS RF: 0 omeprazole 20 MG tablet,delayed release (DR/EC) 20 mg PO DAILY RF: 0 Lantus U-100 Insulin 100 unit/mL Cartridge 16 unit SUBCUT DAILY RF: 0 Primary Care Provider: Lina Kumar Referrals: Lina Kumar, DO [Primary Care Provider] - As Needed Disposition Disposition: Home, Self Care
[2021-04-22 19:38] LABS: Absolute Lymphocyte Count 1.05 X10^3/uL (0.83-4.51); Absolute Neutrophil Count 2.8 X10^3/uL (2.0-7.7); Basophil# 0.02 X10^3/uL; Basophil% 0.4 % (0-1); Eosinophil# 0.23 X10^3/uL; Eosinophils% 4.8 % (0-5); Hematocrit 44.5 % (40-54); Hemoglobin 15.1 g/dL (13.0-16.5); Lymphocyte # 1.05 X10^3/ul (0.83-4.51); Mean Corp Hgb Conc 33.9 g/dL (32-36); Mean Corpuscular Volume 88.3 fL (80-94); Mean Platelet Vol. 9.6 fl (6.2-12.0); Monocyte# 0.69 X10^3/uL; Monocyte% 14.4 % (0-10); NRBC Flagged by Analyzer 0 % (0-5); Neutrophil # 2.78 X10^3/uL (2.7-7.7); Neutrophil % 58.2 % (47-70); Platelet Count 249 K/mm3 (150-450); RBC Distribution Width SD 39.2 fl (35.1-43.9); Red Blood Count 5.04 M/mm3 (4.6-6.2); White Blood Count 4.8 K/mm3 (4.4-11.0)
[2021-04-22 19:49] LABS: D-Dimer Quantitative (DVT/PE) 0.42 FEU/ug/m (0.27-0.49)
[2021-04-22 19:57] LABS: Anion Gap 4 (5-15); BUN 21 mg/dL (7-18); BUN/Creat Ratio 18.1 RATIO (10-20); Calcium,Total 9.4 mg/dL (8.5-10.1); Chloride 103 mmol/L (98-107); Creatinine, Serum 1.16 mg/dL (0.70-1.30); EST Glomerular Filtration Rate 69 mL/min (>60); Est Glom Filt Rate - Afr Amer 84 mL/min (>60); Estimated Creatinine Clearance 81.32 ml/min; Glucose 117 mg/dL (74-106); Potassium 3.9 mmol/L (3.5-5.1); Sodium Level 135 mmol/L (136-145); Troponin-I HS 10 pg/mL (3.0-78.0)
[2021-04-22 21:28] VITALS: BP 149/90; PULSE 83; RESP 22; O2SAT 97
[2021-04-22 21:51] LABS: Troponin-I HS 8 pg/mL (3.0-78.0)
[2021-04-22 22:21] VITALS: BP 144/85; PULSE 78; RESP 16; O2SAT 97
== END 2021-04-22 22:22 | disposition home or self-care (01) ==
PROVIDERS: Emergency Provider Emergency Medicine; PCP Internal Medicine
DX: U07.1 COVID-19 (principal); I25.10 Atherosclerotic heart disease of native coronary artery without angina pectoris; E11.9 Type 2 diabetes mellitus without complications; K22.2 Esophageal obstruction; E03.9 Hypothyroidism, unspecified; E78.00 Pure hypercholesterolemia, unspecified; I10 Essential (primary) hypertension; K21.9 Gastro-esophageal reflux disease without esophagitis; Z79.4 Long term (current) use of insulin
CPT/HCPCS: 71045; 80048; 84484; 85025; 85379; 93005; 99284; A4216

== ENCOUNTER → 2021-05-05 15:03 | Outpatient (CLI) | payer BC, SELFPAY ==
[2021-05-05 16:06] LABS: Absolute Lymphocyte Count 0.56 X10^3/uL (0.83-4.51); Absolute Neutrophil Count 6.9 X10^3/uL (2.0-7.7); Basophil# 0.02 X10^3/uL; Basophil% 0.3 % (0-1); Eosinophil# 0.04 X10^3/uL; Eosinophils% 0.5 % (0-5); Hematocrit 39.8 % (40-54); Hemoglobin 13.7 g/dL (13.0-16.5); Lymphocyte # 0.56 X10^3/ul (0.83-4.51); Lymphocyte % 7.3 % (19-41); Mean Corp Hgb Conc 34.4 g/dL (32-36); Mean Corpuscular Hgb 30.2 pg (27.0-32.0); Mean Corpuscular Volume 87.7 fL (80-94); Mean Platelet Vol. 10.2 fl (6.2-12.0); Monocyte# 0.14 X10^3/uL; Monocyte% 1.8 % (0-10); NRBC Flagged by Analyzer 0 % (0-5); Neutrophil # 6.93 X10^3/uL (2.7-7.7); POSITIVE DIFFERENTIAL YES; Platelet Count 302 K/mm3 (150-450); RBC Distribution Width CV 12.4 % (11.6-14.6); RBC Distribution Width SD 39.8 fl (35.1-43.9); Red Blood Count 4.54 M/mm3 (4.6-6.2); White Blood Count 7.7 K/mm3 (4.4-11.0)
[2021-05-05 16:08] LABS: Differential Indicated SCAN CRITERIA MET
[2021-05-05 16:42] LABS: AST(SGOT) 24 U/L (15-37); Alanine Aminotransfer ALT/SGPT 24 U/L (16-61); Albumin, Serum 3.4 g/dL (3.2-5.0); Alkaline Phosphatase 111 U/L (45-117); Anion Gap 4 (5-15); BUN 30 mg/dL (7-18); BUN/Creat Ratio 24.8 RATIO (10-20); Bilirubin, Direct 0.13 mg/dL (0.00-0.30); CRP, High Sensitivity Cardiac 1.34 mg/L; Chloride 109 mmol/L (98-107); Cholesterol 117 mg/dL (200); Creatinine, Serum 1.21 mg/dL (0.70-1.30); EST Glomerular Filtration Rate 66 mL/min (>60); Est Glom Filt Rate - Afr Amer 80 mL/min (>60); Globulin 3.5 g/dL (2.2-4.2); Glucose 191 mg/dL (74-106); High Density Lipoprotein 60 mg/dL; Potassium 4.5 mmol/L (3.5-5.1); Protein, Total 6.9 g/dL (6.4-8.2); Sodium Level 138 mmol/L (136-145); Triglycerides 126 mg/dL; Very Low Density Lipoprotein 25 mg/dL (5-40)
[2021-05-05 16:46] LABS: Anisocytosis RARE; Platelet Estimate ADEQUATE (ADEQ); Red Cell Morphology NORM C+C NORMAL (NORM C&C)
== END ==
PROVIDERS: PCP Internal Medicine; Referring Provider Internal Medicine Cardiovascular Disease; Visit Provider Internal Medicine Cardiovascular Disease
DX: E78.00 Pure hypercholesterolemia, unspecified (principal); I25.119 Atherosclerotic heart disease of native coronary artery with unspecified angina pectoris; R93.1 Abnormal findings on diagnostic imaging of heart and coronary circulation; R07.9 Chest pain, unspecified; I10 Essential (primary) hypertension
CPT/HCPCS: 36415; 80048; 80061; 80076; 85025; 86141; 87635; C9803; U0005; U0003

== ENCOUNTER → 2021-05-10 12:04 | Outpatient (CLI) | payer BC, SELFPAY ==
--- NOTE | 2021-05-10 18:01 | STRESSREP ---
Stress Test Report Left chest discomfortExercise stress test. 56-year-old male with a history of chest pain pain Stress protocol: Resting EKG demonstrates normal sinus rhythm with a rate of 70 bpm normal intervals are noted. The patient exercised according to regular Kamran protocol for total duration of 7 minutes and 45 seconds. The maximum heart rate attained was 181 bpm which was 110% of max impact at heart rate the maximum workload was 10.1 metabolic equivalents. The patient maintained sinus rhythm throughout the recording. At peak exercise there was approximately [address] depression noted in lead V3 through V6. The above is suggestive of ischemia. At 50 seconds into recovery upsloping ST changes were noted which suggested normalization. During recovery there were no other EKG changes noted. The resting blood pressure was 148/82 with a peak blood pressure of 202/84 mmHg suggesting a hypertensive response to exercise. The patient complained of at peak exercise which persisted into recovery and eventually dissipated. Conclusion: Exercise stress test with EKG changes suggestive of ischemia at a high workload. Hypertensive response to exercise. Chest discomfort noted of unclear significance but angina cannot be excluded.
== END ==
PROVIDERS: PCP Internal Medicine; Referring Provider Internal Medicine Cardiovascular Disease; Visit Provider Internal Medicine Cardiovascular Disease
DX: R07.9 Chest pain, unspecified (principal); I25.119 Atherosclerotic heart disease of native coronary artery with unspecified angina pectoris; U07.1 COVID-19; R93.1 Abnormal findings on diagnostic imaging of heart and coronary circulation; E78.00 Pure hypercholesterolemia, unspecified; I10 Essential (primary) hypertension
CPT/HCPCS: 93017

== ENCOUNTER 2021-05-18 06:50 | Day surgery (SDC) | payer BC, SELFPAY ==
[2021-05-08 09:09] VITALS: BMI 24.9
--- NOTE | 2021-05-18 08:46 | CL.D_ITS ---
Patient Name: DARRIUS PARKER Study Date: 05/18/2021 Performing: To Randall MD Ht: 72.83 inches 185 cm : 1965 Wt: 189.6 lbs 86 kg Age: 56 Gender: male BSA: 2.1 PROCEDURE(S) PERFORMED UR49-ASH/COR/LV CLINICAL PROFILE AND INDICATIONS Indications: Suspected CAD Heart Failure: None Stress/Imaging Date: 05/12/21 CAD Presentations: Symptom unlikely to be ischemic. CONCLUSIONS Diffuse coronary artery disease with mild to moderate calcification but no high-grade stenosis noted in a significant vascular territory except for small obtuse marginal branch. RECOMMENDATIONS Risk factor modification Medical therapy DESCRIPTION OF PROCEDURE The patient arrived to the procedure lab. The risks and benefits of the procedure as well as a full d escription of our services here and current unavailability of surgical backup were fully explained to the patient and/or their significant other prior to the catheterization. The Timeout was completed, verifying the correct patient and procedure. The patient's procedural site was prepped and draped in the usual fashion. Local anesthetic was given subcutaneously to right radial region with Lidocaine 2% . Using a modified Seldinger technique, arterial access was obtained via the right radial artery, a 6 Fr sheath was inserted. Left Coronary Artery selective angiography was performed in multiple views u sing a 5 Fr. 4.0 [place] catheter. Right Coronary Artery selective angiography was then performed in mu ltiple views using a 5 Fr. 4.0 [place] catheter. Left Ventriculography was performed in FONG projection using a 5 Fr. Pigtail catheter. LV to AO pullback pressures were then recorded.The arterial sheath was pulled and a TR Band was applied for hemostasis. Sheath flushed prior to removal. 10cc air. CORONARY ANGIOGRAPHY DOMINANCE: Left Dominant LEFT HEART ASSESSMENT Left Ventricular Ejection Fraction: by LV Gram 60 % Normal Left Ventricular systolic function LEFT MAIN: Mild calcification, No significant disease noted LEFT ANTERIOR DESCENDING ARTERY: Moderate calcification, The proximal left anterior descending artery has mild luminal irregularities and the distal left anterior descending artery has moderate diffuse disease no greater than 50% CIRCUMFLEX ARTERY: Left circumflex artery is dominant with the first small obtuse marginal branch wit h 80% mid stenosis, second obtuse marginal branch with moderate 50% diffuse disease, third obtuse ma rginal branch with mild 30% diffuse disease, AV groove branch with mild luminal irregularities and po sterior lateral vessel with proximal 50% stenosis RIGHT CORONARY ARTERY: Nondominant but medium size vessel with mild diffuse disease of 30%. COMPLICATIONS No Complications PROCEDURE MEDICATIONS Fentanyl 50 mcg IV Versed 1 mg IV Versed 1 mg IV Oxygen: 2 L/min via nasal cannula SUMMARY OF HEMODYNAMIC DATA Time AIR REST ECG 07:11:45 ECG 07:49:14 AO 102/58 (77) SA 08:08:58 LV 117/3, 9 08:14:52 LV 126/8, 12 08:14:58 LV 118/11, 14 08:15:46 LVp 110/10, 13 08:15:49 AOp 114/66 (87) 08:15:54 ECG 08:26:14 Signed By To Randall MD On 05/18/2021 8:48:20 AM Signed By To Randall MD On 05/18/2021 8:44:43 AM To Randall MD
== END 2021-05-18 12:30 | disposition home or self-care (01) ==
LOC: CLSP 06:53
PROVIDERS: PCP Internal Medicine; Visit Provider Internal Medicine Cardiovascular Disease
DX: I25.10 Atherosclerotic heart disease of native coronary artery without angina pectoris (principal); R93.1 Abnormal findings on diagnostic imaging of heart and coronary circulation; R07.9 Chest pain, unspecified; I10 Essential (primary) hypertension; E10.9 Type 1 diabetes mellitus without complications; E78.5 Hyperlipidemia, unspecified; N40.0 Benign prostatic hyperplasia without lower urinary tract symptoms; E78.00 Pure hypercholesterolemia, unspecified; Z79.4 Long term (current) use of insulin; Z86.16 Personal history of COVID-19
CPT/HCPCS: 93458; 99152; 99153; J7040; Q9967; C1769; C1894

== ENCOUNTER 2021-07-12 08:56 | Outpatient (CLI) | payer BC, SELFPAY ==
--- NOTE | 2021-07-12 12:59 | NEURO ---
NCS and/or EMG Patient Report Ordering Doctor: Lina Kumar DATE OF SERVICE: 07/12/21 [place] presents for electrodiagnostic testing of the lower limbs. He reports a 3-month history of low back pain with radiation into the lower limbs and a burning sensation. Electrodiagnostic findings left peroneal motor nerve demonstrates normal distal latency with reduced amplitude and reduced conduction velocity. Right peroneal motor nerve demonstrates normal distal latency, amplitude and reduced conduction velocity. Decreased right tibial motor amplitude and conduction velocity. Decreased left tibial amplitude. Absent sensory responses in both the sural and superficial peroneal distribution. Prolonged tibial and peroneal F-wave. On needle EMG, all muscles tested in the lower limbs showed no evidence of denervation with normal motor unit action potentials. Electrodiagnostic Impression: This is an abnormal study. 1. Electrodiagnostic findings demonstrate peripheral polyneuropathy with motor and sensory nerve involvement. This may be secondary to longstanding history of diabetes 2. No electrodiagnostic evidence is noted for lumbosacral radiculopathy.
== END 2021-07-12 23:59 | disposition short-term general hospital (02) ==
PROVIDERS: PCP Internal Medicine; Referring Provider Internal Medicine; Visit Provider Internal Medicine
DX: M54.16 Radiculopathy, lumbar region (principal); M79.604 Pain in right leg; M79.605 Pain in left leg
CPT/HCPCS: 95886; 95911

== ENCOUNTER 2021-09-06 08:30 | Outpatient (RCR) | payer BC, SELFPAY ==
--- NOTE | 2021-08-17 12:46 | HP.PTEVAL_ITS ---
Patient's Visit Information DARRIUS PARKER is a 56 year old M referred to Physical Therapy by Dr. Lina Kumar DO with a diagnosis of Lumbar radiculopathy. Date of Evaluation: 08/17/21 Physical Therapist: Mustapha Narvaez, DPT, OCS, CSCS - Visit Plan Frequency: 3x /Week Duration: 2-4 Weeks Plan: 3x/week for 2-4 weeks for: 1. alexandra ext bias ex and mobs as needed, LB ROM. 2. Postural correction, core strength. 3. rollout and stretch B quads. 4. STM/TENS if needed for pain. - Subjective Has pain from butt cheeks down and thinks it is from Covid. Constant straining feeling. It keeps him up at night and he needs to keep moving. Gets muscle spasms at base of low back. Pain is a sensation, not a pain and it wears him out. Had covid in April and started in May. It started in L forearm felt like hit funny bone constantly. Hand surgeon told him that his NCT would call it neuropathy as he is a diabetic. Needs a back MRI but needs to have PT first. No numbness or tingling in legs. Leggs feel weak. Steps are harder than they used to be. He has knee OA and needs replacements. Fell a few weeks ago and broke ribs slipping on ice and got muscle relaxer. Pt goal is improvement or MRI. Doing everything he needs to do at home, just painful, Worse walking and doing more. - Pain LB Pain Intensity (Out of 10): Unrated Pain Intensity Range: 0, 5, Unrated - Objective Walks slightly hunched over but I. Trasnfers I, sits with flat lordosis and tend to hold weight off hips with UE. Bed transfer I. Extension L./S max limited and increases tightness. Felxion and SB are normal. Quads max tight, HS OK. Reflexes 2/3 patella and achilles B. Sensation WNl to gross light touch B LE. Strength LE 4+/5 without myotomal abnormalities. repeated ext increases ext motion immediately and is painful during but more focal after. - Balance/Special Test Scores Oswestry Low Back Score: 12 - Goals Goal 1:: Sleep without waking due to pain Goal Time Frame: 2-4 Weeks Goal 2:: Patient have full LB AROM without pain or hesitation Goal Time Frame: 2-4 Weeks Goal 3:: patient feel back to 95% better with no pain at rest. Goal Time Frame: 2-4 Weeks Goal 4:: I appropr HEP to manage condition Goal Time Frame: 2-4 Weeks - Rehabilitation Potential Physical Therapy Diagnosis: LB radiculopathy causing pain and dysfunction Rehabilitation Potential: Fair - Anticipated Interventions Patient/Client Instruction: Educate patient on: Condition, Plan of Care For the Purpose of:: To decrease pain, To increase ROM, To improve muscle performance and motor function, To improve ability of physical actions for home/community/work/leisure Therapeutic Exercise to Include: Strength training, Passive ROM, Active ROM, Dynamic Lumbar Stabilization, Alexandra Exercises For the Purpose of:: To decrease pain, To increase ROM, To improve muscle performance and motor function, To improve ability of physical actions for home/community/work/leisure, To improve gait and locomotor functions Manual Therapy Techniques to Include: Mobilization, Manipulation, Passive ROM For the Purpose of:: To increase ROM TENS: Yes For the Purpose of:: To decrease pain, To increase ROM Thank you for the opportunity to evaluate your patient. For Medicare and Medicare HMO plans, please review the plan of care and approve it. It will need to be FAXED BACK to us at [phone] for Medicare purposes. For Medicare only, by signing this I certify the plan of care. Please let me know if there are questions or concerns regarding this plan of care. Physician Signature: Date:
--- NOTE | 2021-09-06 09:00 | HP.PTREVAL_ITS ---
Dr. Lina Kumar, DO, It has been my pleasure to treat DARRIUS PARKER over the last 7 visits for Lumbar radiculopathy. Please see the progress note below for an update on the physical therapy plan of care! Subjective: It skilling me this morning. I need to do exercises more. I skipped ex on purpose yesterday as an experiment. Much worse without exercise. painful coming in this am 6/10 walking and bending and 6.2. Objective/Function: Pain with PPU and eis but improved motion with repetitive. Very painful central LB. Walking hunched FW with FW shift. This improves slightly with ext mobs, not at all with press ups and a bit with prone prop with MH. Pt frustrated with pain but realizing he can manage it a little bit. Re commend MRI to ensure treatment and appropriate next step. Plan Plan: Pt to schedule with doctor for next medical step(MRI). Will hold chart one month and patient to call after MRI for more therapy if needed. Balance/Gait/Functional tests - Balance/Special Test Scores Oswestry Low Back Score: 12 Goals Goal 1:: Sleep without waking due to pain Goal Time Frame: 2-4 Weeks Goal Progress: not consistently Goal 2:: Patient have full LB AROM without pain or hesitation Goal Time Frame: 2-4 Weeks Goal Progress: Not Progressing Goal 3:: patient feel back to 95% better with no pain at rest. Goal Time Frame: 2-4 Weeks Goal Progress: 50% Goal 4:: I appropr HEP to manage condition Goal Time Frame: 2-4 Weeks Goal Progress: Goal Met Anticipated Interventions Patient/Client Instruction: Educate patient on: Condition, Plan of Care For the Purpose of:: To decrease pain, To increase ROM, To improve muscle performance and motor function, To improve ability of physical actions for home/community/work/leisure Therapeutic Exercise to Include: Strength training, Passive ROM, Active ROM, Dynamic Lumbar Stabilization, Dante Exercises For the Purpose of:: To decrease pain, To increase ROM, To improve muscle performance and motor function, To improve ability of physical actions for home/community/work/leisure, To improve gait and locomotor functions Manual Therapy Techniques to Include: Mobilization, Manipulation, Passive ROM For the Purpose of:: To increase ROM TENS: Yes For the Purpose of:: To decrease pain, To increase ROM Please do not hesitate to contact me at [phone] by phone or if you have questions or concerns regarding this new plan of care! Sincerely, Mustapha Narvaez, DPT, OCS, CSCS
--- NOTE | 2021-10-20 07:56 | HP.PT.NRP ---
DARRIUS PARKER was seen in my office for initial evaluation on 08/17/21. The following Plan of Care was established for this patient: Initial Frequency: 3x /Week Initial Duration: 2-4 Weeks Patient/Client Instruction: Educate patient on: Condition, Plan of Care For the Purpose of:: To decrease pain, To increase ROM, To improve muscle performance and motor function, To improve ability of physical actions for home/community/work/leisure Therapeutic Exercise to Include: Strength training, Passive ROM, Active ROM, Dynamic Lumbar Stabilization, Dante Exercises For the Purpose of:: To decrease pain, To increase ROM, To improve muscle performance and motor function, To improve ability of physical actions for home/community/work/leisure, To improve gait and locomotor functions Manual Therapy Techniques to Include: Mobilization, Manipulation, Passive ROM For the Purpose of:: To increase ROM TENS: Yes For the Purpose of:: To decrease pain, To increase ROM This patient was last seen in our office 09/06/21. Pertinent comments regarding their Physical therapy will appear below: Pt seen 7 visits of POC and was 50% improved. At that time he wished to pursue next step with doctor. He was to call within a month if he wished to return for continued therapy. At this point, it has been over 5 weeks and I will discontinue due to nonattendance. At this point I will be discontinuing this patient from physical therapy. I would be happy to see this patient again in the future if found appropriate by the physician. Thank you! Mustapha Narvaez, DPT, OCS, CSCS Balance/Gait/Functional tests - Balance/Special Test Scores Oswestry Low Back Score: 12
== END 2021-09-06 19:00 | disposition home or self-care (01) ==
LOC: PT 08:30
PROVIDERS: PCP Internal Medicine; Referring Provider Internal Medicine; Visit Provider Internal Medicine
DX: M54.16 Radiculopathy, lumbar region (principal)
CPT/HCPCS: 97110; 97161; 97164; 97530

== ENCOUNTER 2021-09-26 15:32 | Outpatient (CLI) | payer BC, SELFPAY ==
--- NOTE | 2021-09-26 16:00 | MRI_ITS ---
STUDY: MR Spine Lumbar W/O Contrast 09/26/2021 5:55 PM REASON FOR EXAM: Male, 56 years old. Back pain Lumbar radiculopathy TECHNIQUE: MR Spine Lumbar W/O Contrast Standardized fat and water weighted pulse sequences were obtained. COMPARISON: None FINDINGS: T12-L1: Normal endplates. Normal disc height, hydration and morphology. Normal bilateral facet joints. Normal central canal and bilateral lateral recesses. Normal bilateral intervertebral neural foramina. Normal lumbar lordosis. There is no substantial scoliosis. Normal conus medullaris that terminates at the L1. L1-2: Normal endplates. Normal disc height and morphology. Normal central canal and intervertebral neuroforamina. There is bilateral ligamentum flavum thickening. L2-3: Normal endplates. Normal disc height, hydration and morphology. Normal bilateral facet joints. Normal central canal and bilateral lateral recesses. Normal bilateral intervertebral neural foramina.There is bilateral ligamentum flavum thickening. Posterior disc bulge. L3-4: Normal endplates. Normal disc height, hydration and morphology. Normal bilateral facet joints. Normal central canal and bilateral lateral recesses. Normal bilateral intervertebral neural foramina. There is bilateral ligamentum flavum thickening. Posterior disc bulge. L4-5: Loss of intervertebral disc height. There is endplate spondylosis of the vertebral body. Disc desiccation. Grade 1 anterolisthesis of L4 on L5. Distance measures 5.4 mm. There is bilateral facet arthropathy. There is bilateral ligamentum flavum thickening. Posterior disc bulge. Bilateral neural foraminal stenosis. Severe spinal stenosis. L5-S1: Normal endplates. Normal disc height, hydration and morphology. Normal bilateral facet joints. Normal central canal and bilateral lateral recesses. Normal bilateral intervertebral neural foramina.There is bilateral ligamentum flavum thickening. Posterior disc bulge. Normal visualized sacral ala. Normal visualized paraspinous soft tissue structures. MRI/Spine Lumbar (Routine) IMPRESSION: Multilevel degenerative changes, as described above. L4-5: Grade 1 anterolisthesis of L4 on L5. Distance measures 5.4 mm. There is bilateral facet arthropathy. Posterior disc bulge. Bilateral neural foraminal stenosis. Severe spinal stenosis. Electronically Signed: Rcihy Redding MD at 17:59 EDT ,
== END 2021-09-26 23:59 | disposition home or self-care (01) ==
PROVIDERS: PCP Internal Medicine; Referring Provider Internal Medicine; Visit Provider Internal Medicine
DX: M54.16 Radiculopathy, lumbar region (principal)
CPT/HCPCS: 72148

== ENCOUNTER 2022-01-07 14:41 | Emergency (ER) | payer BC, SELFPAY ==
[2022-01-07 14:41] VITALS: BP 138/78; PULSE 80; RESP 15; TEMP 36.6; O2SAT 98; BMI 24.0
--- NOTE | 2022-01-07 14:58 | CT_ITS ---
STUDY: CT Abdomen And Pelvis W/O Contrast Injection 01/07/2022 4:03 PM REASON FOR EXAM: Male, 56 years old. ABDOMINAL PAIN Pain Technologist Notes LT FLANK PAIN, NO HX KS, HTN, SCHATZKI''S RING, DB TECHNIQUE: Transaxial images were obtained without oral contrast, and without intravenous contrast. Individualized dose optimization techniques were used for this CT. COMPARISON: None. FINDINGS: There are atherosclerotic calcifications of visualized coronary arteries. The visualized portions of the heart are within normal limits. Unremarkable liver. Unremarkable gallbladder and extrahepatic biliary system. Unremarkable spleen. Unremarkable pancreas. Unremarkable bilateral adrenal glands. No acute findings of the right kidney. Mild left hydronephroureter caused by 2 mm left UVJ stone. Series 2 and 145. Series 601 image 84. Unremarkable visualized stomach. Unremarkable small intestine. There are multiple colonic diverticula consistent with diverticulosis. There is non-visualization of the appendix. There are no acute findings of the abdominal aorta. Unremarkable inferior vena cava. Subcentimeter mesenteric lymph nodes. Unremarkable urinary bladder. Degenerative findings of the hips. Unremarkable 23 abdominal wall. There are diffuse degenerative changes of the visualized lumbar spine. Grade 1 anterolisthesis of L4 on L5. CT/Abdomen/Pelvis without Cont IMPRESSION: (NOT LISTED IN ORDER OF SIGNIFICANCE) Mild left hydronephroureter caused by 2 mm left UVJ stone. Degenerative findings of the hips. Other findings as above. Electronically Signed: Richy Redding MD at 16:06 EDT ,
--- NOTE | 2022-01-07 14:59 | EX.ED.DYSGE1 ---
HPI History of Present Illness Chief Complaint: Flank Pain Detail of Chief Complaint: Left flank pain Informant: patient Narrative Narrative: Patient presents to the emergency department complaint of left flank pain that started around lunchtime today. Patient states that he was eating lunch about 1230 when he started having sudden onset of left flank pain. Patient has never had pain like this before. The pain was severe. Currently rates it a 7 out of 10. He denies nausea or vomiting. He has not had any history of kidney stones. He does have history of spinal stenosis and radiculopathy but states this pain is very different. This pain does not radiate down his legs. He does not have any pain radiating around to the front of the abdomen. Patient denies dysuria, hematuria, or frequency. Prior similar symptoms: No PFSH PFSH Medical History (Updated 01/07/22 @ 16:[address] Norbert Mclaughlin, DO) Abnormal cardiovascular stress test Atherosclerotic heart disease of [place] coronary artery without angina pectoris BPH (benign prostatic hyperplasia) Coronary artery disease Elevated coronary artery calcium score Essential hypertension Food impaction of esophagus Hypercholesterolemia Schatzki's ring Home Medications finasteride 1 mg tablet 1 mg PO DAILY 08/03/19 [History Last Taken 05/18/21] insulin aspart U-100 100 unit/mL (3 mL) subcutaneous pen See Protocol SQ DAILY 08/03/19 [History Last Taken 1 Day Ago ~04/21/21] insulin glargine 100 unit/mL (3 mL) subcutaneous pen 10 units SQ ACHS 08/03/19 [History Last Taken 1 Day Ago ~04/21/21] levothyroxine 175 mcg tablet 175 mcg PO DAILY 08/03/19 [History Last Taken 05/18/21] lisinopril 2.5 mg tablet 2.5 mg PO DAILY 08/03/19 [History Last Taken 05/18/21] omeprazole 20 mg tablet,delayed release 20 mg PO DAILY 08/03/19 [History Last Taken 05/18/21] insulin glargine 100 unit/mL subcutaneous cartridge 16 unit subcut DAILY 04/22/21 [History Last Taken 1 Day Ago ~04/21/21] aspirin 81 mg tablet,delayed release (Adult Aspirin Regimen) 81 mg PO DAILY 05/15/21 [History Last Taken 05/18/21] rosuvastatin 40 mg tablet (Crestor) 40 mg PO DAILY #90 tabs 05/18/21 [Rx Last Taken Unknown] hydrocodone-acetaminophen 5-325mg 5mg-325mg 1 tab PO Q4H PRN PRN Pain 2 days #10 TABLETS 01/07/22 [Rx Last Taken Unknown] ondansetron 4 mg disintegrating tablet 4 mg PO Q8H PRN PRN Nausea #10 tabs 01/07/22 [Rx Last Taken Unknown] tadalafil 5 mg tablet 0.5 tab PO DAILY 01/07/22 [History Last Taken Unknown] Allergy/AdvReac Type Severity Reaction Status Date / Time No Known Allergies Allergy Verified 01/07/22 14:41 Surgical History History of esophagogastroduodenoscopy (EGD) (08/2019) History of left heart catheterization (05/18/21) Social History household members: spouse Smoking Status: Never smoker substance use type: does not use ROS ROS ED Review of Systems ROS Unobtainable: other Constitutional Constitutional ED: Reports lethargy; Denies chills, fever(s), sweats or weight loss Eyes Eyes: Denies blurry vision, change in vision or diplopia ENT ENT ED: Denies rhinorrhea or sore throat Cardiovascular Cardiovascular: Reports chest pain and racing heartbeat; Denies orthopnea Respiratory/Chest Respiratory/Chest: Reports dyspnea and dyspnea on exertion; Denies cough, orthopnea or sputum Gastrointestinal Gastrointestinal: Denies abdominal pain, diarrhea, nausea or vomiting Genitourinary Genitourinary ED: Denies dysuria, hematuria or urinary frequency Musculoskeletal Musculoskeletal: Reports back pain; Denies arthralgias, myalgias or neck pain Integumentary Denies abscess, Abrasions or rash Neurologic Neurologic: Denies headache(s) or weakness Psychiatric Psychiatric: Denies anxiety, depression or suicidal thoughts Endocrine Endocrinology: Denies polydipsia, polyphagia or polyuria Hematologic/Lymphatic Hematologic/Lymphatic: Denies easy bleeding, easy bruising or lymphadenopathy Allergic/Immunologic Allergic/Immunologic ED: Denies mouth swelling, tongue swelling or urticaria EXAM Physical Exam Const Vital Signs: 01/07/22 14:41 Temperature 97.9 F Temperature Source Temporal Pulse Rate 80 Respiratory Rate 15 Blood Pressure 138/78 H Blood Pressure Mean 98 Pulse Ox 98 Oxygen Delivery Method Room Air Positive well nourished and well developed General Appearance ED: well developed and NAD HEENT Reports TM's clear and moist mucous membranes normocephalic and atraumatic; Negative for trauma or tenderness Tympanic Membrane ED: Yes TM's clear Eyes PERRL and EOMs intact bilaterally General Eye ED: Negative for pale conjunctiva or scleral icterus Neck no lymphadenopathy, supple and no JVD General: Negative for tenderness Chest Wall inspection of chest normal and palpation of chest normal Chest: Negative for tenderness Resp normal respiratory effort and clear to auscultation bilaterally Effort and Inspection: Negative for respiratory distress or pain with movement Auscultation: Negative for rhonchi, wheezes or diminished lung sounds Cardio regular rate, regular rhythm, S1 normal heart sound, S2 normal heart sound and no murmurs Peripheral Pulses: pulses 2+ throughout GI normal to inspection, nondistended, normoactive bowel sounds, soft to palpation, non-tender, non-distended and no masses Back/Spine Back/Spine Narrative: Patient with tenderness palpation over the left CVA. No tenderness over lumbar spine or thoracic spine. He has negative straight leg raises. Normal strength in the lower extremities with normal sensation. Extremity normal to inspection General Extremety ED: Negative for edema General Extremity: Negative for edema Neuro oriented x3, CN's II-XII intact bilaterally, no sensory deficits noted and gait normal Sensorium / Orientation: awake, alert, oriented to person, oriented to place and oriented to time Motor Exam: strength 5/5 throughout and strength abnormal Psych mental status grossly normal Skin no rashes or lesions noted and no wounds MDM MDM MDM Narrative Medical decision making narrative: IV line established on arrival. Patient was given Toradol and Dilaudid half milligram IV. Patient good pain relief with that. Lab work-up was unremarkable. Urinalysis showed no evidence of infection and 0-[address] flank showed a 2 mm stone at the left UVJ with mild left hydroureter. Patient will be discharged to home with a prescription for [place] and Zofran. Patient will be given urine strainers. Patient will be given referral to urology for follow-up. He is advised to return if worsening pain, fever, vomiting, or condition worsen anyway. Lab Data Attestation: I reviewed the patient's lab results. Labs: Laboratory Results - last 24 hr 01/07/22 01/07/22 01/07/22 15:15 15:15 15:15 WBC 6.5 RBC 4.36 L Hgb 13.8 Hct 40.7 MCV 93.3 MCH 31.7 MCHC 33.9 RDW Std Deviation 43.5 RDW Coeff of [place] 12.7 Plt Count 262 MPV 10.0 Immature Gran % (Auto) 0.300 Neut % (Auto) 66.9 Lymph % (Auto) 19.3 [place] % (Auto) 9.7 Eos % (Auto) 3.2 Baso % (Auto) 0.6 Absolute Neuts (auto) 4.3 Absolute Lymphs (auto) 1.25 Nucleated RBC % 0 Sodium 140 Potassium 4.1 Chloride 107 Carbon Dioxide 29.0 Anion Gap 4 L BUN 21 H Creatinine 1.29 Estim Creat Clear Calc 72.26 Est GFR (MDRD) Af Amer 74 Est GFR (MDRD) Non-Af 61 BUN/Creatinine Ratio 16.3 Glucose 118 H Calcium 9.2 Urine Color Yellow Urine Clarity Sl. Cloudy Urine pH 5.0 Ur Specific [place] 1.020 Urine Protein Negative Urine Glucose (UA) Normal Urine Ketones Negative Urine Occult Blood 150 H Urine Nitrite Negative Urine Bilirubin Negative Urine Urobilinogen Normal Ur Leukocyte Esterase Negative Urine RBC 0-5 SEEN Urine WBC 0-5 SEEN Ur Squamous Epith Cells 0-5 SEEN Urine Bacteria 0 SEEN Urine Mucus 0 SEEN Radiography Diagnostic Testing: Clinical Impression(s) from Imaging Studies Abdomen/Pelvis CT 01/07/22 14:58 IMPRESSION: (NOT LISTED IN ORDER OF SIGNIFICANCE) Mild left hydronephroureter caused by 2 mm left UVJ stone. Degenerative findings of the hips. Other findings as above. Electronically Signed: Richy Redding MD at 16:06 EDT Reading Location ID and State: [facility] / [place] , Service support , Discharge Plan Triage Chief Complaint: Flank Pain ED Provider: Norbert Mclaughlin Dx/Rx/DC Orders Clinical Impression: Urolithiasis Instructions: ED Kidney Stone w/ Colic Prescriptions: New hydrocodone-acetaminophen [hydrocodone-acetaminophen] 1 TABLET tablet 1 tab PO Q4H PRN PRN (Reason: Pain) 2 Days Qty: 10 0RF ondansetron [ondansetron] 4 MG tablet 4 mg PO Q8H PRN PRN (Reason: Nausea) Qty: 10 0RF No Action levothyroxine 175 MCG tablet 175 mcg PO DAILY lisinopril 2.5 MG tablet 2.5 mg PO DAILY finasteride 1 MG tablet 1 mg PO DAILY insulin aspart U-100 100 unit/mL (3 mL) insulin pen See Protocol SQ DAILY Protocol: 2. Sliding Scale Insulin Low-Med Dosing Condition: 150-209 mg/dl = 1 unit Condition: 210-269 mg/dl = 2 units Condition: 270-329 mg/dl = 3 units Condition: 330-389 mg/dl = 4 units Condition: 390-449 mg/dl = 5 units Condition: Greater than 449 call physician Protocol Text: - Use for Total Daily Dose of Insulin 28-36 units - Average size patients LOW MEDIUM DOSING ALGORITHM insulin glargine 100 unit/mL (3 mL) insulin pen 10 units SQ ACHS Rx Instructions: SLIDING SCALE NO MORE THAN 10 omeprazole 20 MG tablet,delayed release (DR/EC) 20 mg PO DAILY Lantus U-100 Insulin 100 unit/mL Cartridge 16 unit SUBCUT DAILY tadalafil 5 mg tablet 0.5 tab PO DAILY Label Comments: TAKE 1 TABLET BY MOUTH EVERY DAY aspirin [Adult Aspirin Regimen] 81 mg tablet,delayed release (DR/EC) 81 mg PO DAILY rosuvastatin [Crestor] 40 mg tablet 40 mg PO DAILY Qty: 90 3RF Primary Care Provider: Lina Kumar Referrals: Lina Kumar DO [Primary Care Provider] - Alexandre Roland MD [STAFF PHYSICIAN] - 3-5 Days Disposition Disposition: Home, Self Care
[2022-01-07] MEDS: 0.9% Normal Saline 1,000 ML 125 ML IV (15:09)
[2022-01-07] MEDS: Ondansetron 4 MG/2 ML Vial IV (15:10)
[2022-01-07] MEDS: HYDROmorphone 1 MG/ML Syringe IV (15:10)
[2022-01-07] MEDS: Ketorolac 15 MG/ML Vial IV (15:10)
[2022-01-07 15:30] LABS: Bacteria 0 SEEN /hpf (None Seen); Mucous, Urine 0 SEEN /hpf (<or=2+)
[2022-01-07 15:37] LABS: Absolute Lymphocyte Count 1.25 X10^3/uL (0.83-4.51); Absolute Neutrophil Count 4.3 X10^3/uL (2.0-7.7); Basophil# 0.04 X10^3/uL; Basophil% 0.6 % (0-1); Eosinophil# 0.21 X10^3/uL; Eosinophils% 3.2 % (0-5); Hematocrit 40.7 % (40-54); Hemoglobin 13.8 g/dL (13.0-16.5); Lymphocyte # 1.25 X10^3/ul (0.83-4.51); Lymphocyte % 19.3 % (19-41); Mean Corp Hgb Conc 33.9 g/dL (32-36); Mean Corpuscular Hgb 31.7 pg (27.0-32.0); Mean Corpuscular Volume 93.3 fL (80-94); Monocyte# 0.63 X10^3/uL; Monocyte% 9.7 % (0-10); NRBC Flagged by Analyzer 0 % (0-5); Neutrophil # 4.33 X10^3/uL (2.7-7.7); Neutrophil % 66.9 % (47-70); Platelet Count 262 K/mm3 (150-450); RBC Distribution Width CV 12.7 % (11.6-14.6); RBC Distribution Width SD 43.5 fl (35.1-43.9); Red Blood Count 4.36 M/mm3 (4.6-6.2); White Blood Count 6.5 K/mm3 (4.4-11.0)
[2022-01-07 15:40] LABS: Color, Urine Yellow (Yellow); Glucose, Dipstick Normal (Normal); Ketone-Dipstick Negative (Negative); Leukocyte Esterase-Dipstick Negative /ul (Negative); Nitrite-Dipstick Negative (Negative); Occult Blood-Urine 150 /ul (Negative); Protein-Dipstick Negative (Negative); Urine Bilirubin Dipstick Negative (Negative); Urine Clarity Sl. Cloudy (Clear); Urine Urobilinogen Normal (Normal)
[2022-01-07 15:45] LABS: Anion Gap 4 (5-15); BUN 21 mg/dL (7-18); BUN/Creat Ratio 16.3 RATIO (10-20); Calcium,Total 9.2 mg/dL (8.5-10.1); Chloride 107 mmol/L (98-107); Creatinine, Serum 1.29 mg/dL (0.70-1.30); EST Glomerular Filtration Rate 61 mL/min (>60); Est Glom Filt Rate - Afr Amer 74 mL/min (>60); Estimated Creatinine Clearance 72.26 ml/min; Glucose 118 mg/dL (74-106); Potassium 4.1 mmol/L (3.5-5.1); Sodium Level 140 mmol/L (136-145)
[2022-01-07 15:56] LABS: Red Blood Cells-Urine 0-5 SEEN /hpf (0-5); Squamous Epithelial Cells - UA 0-5 SEEN /hpf (0-5); White Blood Cells 0-5 SEEN /hpf (0-5)
== END 2022-01-07 16:37 | disposition home or self-care (01) ==
PROVIDERS: Emergency Provider Emergency Medicine; PCP Internal Medicine; Visit Provider Emergency Medicine
DX: N20.1 Calculus of ureter (principal); I25.10 Atherosclerotic heart disease of native coronary artery without angina pectoris; I10 Essential (primary) hypertension; N13.4 Hydroureter; E78.00 Pure hypercholesterolemia, unspecified
CPT/HCPCS: 74176; 80048; 81001; 85025; 96361; 96374; 96375; 99283; J7030; J2405

== ENCOUNTER → 2022-01-15 | Outpatient (CLI) | payer BC, SELFPAY ==
--- NOTE | 2022-01-15 06:50 | MRI_ITS ---
STUDY: MRI CERVICAL SPINE WITHOUT CONTRAST REASON FOR EXAM: Male, 56 years old.with neck pain. TECHNIQUE: Standardized fat and water weighted pulse sequences were obtained in the sagittal and axial planes. COMPARISON: None FINDINGS: Unremarkable alignment of the columns of the cervical spine is visualized. No evidence of spondylolisthesis. The cervical vertebral bodies demonstrate unremarkable contours, no evidence of compression deformity is seen. Mild degenerative endplate changes are visualized. Subtle anterior osteophyte osteophyte formation is seen. No abnormal signal intensity visualized within the marrow of the cervical vertebral body on the STIR sequence to suggest fracture, edema or infiltrative process. Disc desiccation visualized in the cervical spine, decreased intervertebral disc height visualized most prominent at C5-C6 and C6-C7. No abnormal density visualized within the spinal canal. C2-3: Mild degenerative changes visualized, no significant narrowing of the spinal canal or neuroforamina is visualized at this level. C3-4: Mild degenerative disc osteophyte complex and left uncovertebral disease visualized at this level, no significant narrowing of the spinal canal or bilateral neuroforamina is visualized at this level. C4-5: Degenerative disc osteophyte complex and bilateral uncovertebral disease visualized, mild effacement of the ventral CSF spaces with suggestion of subtle narrowing of the spinal canal, mild to moderate narrowing of the right neural foramina and mild narrowing of the left neuroforamina is visualized at this level. C5-6: Degenerative disc osteophyte complex and bilateral uncovertebral disease visualized, mild narrowing of the spinal canal, mild to moderate narrowing of the right neural foramina and severe narrowing of the left neuroforamina is visualized at this level. C6-7: Degenerative disc osteophyte complex and bilateral uncovertebral disease visualized, mild narrowing of the spinal canal, mild narrowing of the right neural foramina and moderate to severe narrowing of the left neuroforamina is visualized at this level. C7-T1: Degenerative changes visualized with no significant narrowing of the spinal canal and mild narrowing of bilateral neuroforamina seen at this level. No abnormal signal intensity visualized within the cervical cord. Normal visualized soft tissue structures. MRI/Spine Cervical (Routine) IMPRESSION: Degenerative changes of the cervical spine visualized most prominent at C5-C6 and C6-C7. Electronically Signed: Willian Bonilla MD at 12:04 EDT ,
== END | disposition home or self-care (01) ==
PROVIDERS: PCP Internal Medicine; Referring Provider Internal Medicine; Visit Provider Internal Medicine
DX: M54.16 Radiculopathy, lumbar region (principal)
CPT/HCPCS: 72141

== ENCOUNTER → 2022-02-16 | Outpatient (CLI) | payer BC, SELFPAY ==
[2022-02-16 12:16] LABS: Absolute Lymphocyte Count 1.07 X10^3/uL (0.83-4.51); Absolute Neutrophil Count 2.7 X10^3/uL (2.0-7.7); Basophil# 0.03 X10^3/uL; Basophil% 0.7 % (0-1); Eosinophil# 0.19 X10^3/uL; Eosinophils% 4.4 % (0-5); Hematocrit 42.8 % (40-54); Hemoglobin 14.6 g/dL (13.0-16.5); Lymphocyte # 1.07 X10^3/ul (0.83-4.51); Lymphocyte % 24.5 % (19-41); Mean Corp Hgb Conc 34.1 g/dL (32-36); Mean Corpuscular Hgb 31.3 pg (27.0-32.0); Mean Corpuscular Volume 91.8 fL (80-94); Mean Platelet Vol. 10.2 fl (6.2-12.0); Monocyte# 0.38 X10^3/uL; Monocyte% 8.7 % (0-10); NRBC Flagged by Analyzer 0 % (0-5); Neutrophil # 2.68 X10^3/uL (2.7-7.7); Neutrophil % 61.5 % (47-70); Platelet Count 310 K/mm3 (150-450); RBC Distribution Width CV 12.3 % (11.6-14.6); RBC Distribution Width SD 41.1 fl (35.1-43.9); Red Blood Count 4.66 M/mm3 (4.6-6.2); White Blood Count 4.4 K/mm3 (4.4-11.0)
[2022-02-16 12:35] LABS: Vitamin D,25 Hydroxy 89.2 ng/mL
[2022-02-16 12:45] LABS: ALB/GLOB Ratio 1.2 RATIO (0.9-2.4); AST(SGOT) 25 U/L (15-37); Alanine Aminotransfer ALT/SGPT 28 U/L (16-61); Albumin, Serum 3.4 g/dL (3.2-5.0); Alkaline Phosphatase 62 U/L (45-117); Anion Gap 5 (5-15); BUN 17 mg/dL (7-18); BUN/Creat Ratio 14.8 RATIO (10-20); CRP, High Sensitivity Cardiac 0.73 mg/L; Calcium,Total 9.3 mg/dL (8.5-10.1); Chloride 106 mmol/L (98-107); Creatinine, Serum 1.15 mg/dL (0.70-1.30); EST Glomerular Filtration Rate 70 mL/min (>60); Est Glom Filt Rate - Afr Amer 84 mL/min (>60); Globulin 2.9 g/dL (2.2-4.2); Glucose 201 mg/dL (74-106); Potassium 4.5 mmol/L (3.5-5.1); Protein, Total 6.3 g/dL (6.4-8.2); Sodium Level 140 mmol/L (136-145); Thyroid Stim Hormone (TSH) 0.06 uIU/mL (0.358-3.74)
[2022-02-21 08:35] LABS: EBV Acute VCA IgM < 36.0 U/mL (0.0-35.9)
== END | disposition home or self-care (01) ==
LOC: LABSPEC 11:55
PROVIDERS: PCP Internal Medicine; Visit Provider Internal Medicine
DX: E55.9 Vitamin D deficiency, unspecified (principal); R53.82 Chronic fatigue, unspecified; E03.9 Hypothyroidism, unspecified
CPT/HCPCS: 80053; 82306; 84443; 85025; 86141; 86664; 86665

== ENCOUNTER → 2022-02-21 | Outpatient (CLI) | payer BC, SELFPAY ==
--- NOTE | 2022-02-21 15:34 | NEURO ---
NCS and/or EMG Patient Report Ordering Doctor: Lina Kumar DATE OF SERVICE: 02/21/22 [place] presents for electrodiagnostic testing of the left upper limb. He reports intermittent numbness and tingling in the forearm and hand Electrodiagnostic findings: Left median motor nerve demonstrates normal distal latency and amplitude with reduced conduction velocity. Prolonged left median sensory latency at the wrist. Normal ulnar and radial sensory responses. Left ulnar motor nerve demonstrates normal distal latency and amplitude without a significant drop in conduction across the elbow. Prolonged median and ulnar F waves are noted. On needle EMG, all muscles tested in the left upper limb showed no evidence of denervation with normal motor unit action potentials Electrodiagnostic impression: This is an abnormal study in the left upper limb 1. Electrodiagnostic findings demonstrate left-sided median mononeuropathy. This is consistent with a mild left carpal tunnel syndrome 2. There is no electrodiagnostic evidence for ulnar neuropathy, including cubital tunnel syndrome 3. No electrodiagnostic evidence is noted for cervical radiculopathy.
== END | disposition home or self-care (01) ==
LOC: PSN 14:27
PROVIDERS: PCP Internal Medicine; Referring Provider Internal Medicine; Visit Provider Internal Medicine
DX: M79.602 Pain in left arm (principal)
CPT/HCPCS: 95886; 95910

== ENCOUNTER 2022-03-24 08:30 | Emergency (ER) | payer BC, SELFPAY ==
[2022-03-24 08:32] VITALS: BP 152/89; PULSE 95; RESP 18; TEMP 36.3; O2SAT 98; BMI 23.2
--- NOTE | 2022-03-24 08:47 | EKG12_ITS ---
Test Reason : DYSRHYTHMIA Blood Pressure : / mmHG Vent. Rate : 082 BPM Atrial Rate : 082 BPM P-R Int : 156 ms QRS Dur : 082 ms QT Int : 364 ms P-R-T Axes : 075 070 052 degrees QTc Int : 425 ms Normal sinus rhythm Normal ECG Confirmed by YU REYEZ, HELGA ([id number]), makeup editor PRISCILLA VALENCIA ([id number]) on 03/27/2022 1:45:19 PM Referred By: MT Confirmed By:HELGA NICHOLAS MD
--- NOTE | 2022-03-24 08:51 | EX.ED.DYSGE1 ---
HPI History of Present Illness Chief Complaint: Allergic Reaction Detail of Chief Complaint: Suspected allergic reaction Informant: patient and spouse/S.O. Onset/Context/Timing Onset: Today (Facial swelling, swelling of tongue and posterior pharynx and HPI), Yesterday (Conjunctivitis, erythema of mouth) and Days Context: Sudden Onset Timing: Continuous Quality: Per HPI Location: Systemic and face upper airway Current Severity: Moderate Maximum Severity: Moderate Worsened by: Uncertain Relieved by: Nothing Associated Symptoms Associated Symptoms: Change in voice and difficulty swallowing Narrative Narrative: Patient is a 56-year-old male with type 1 diabetes, hypothyroidism, GERD and hypercholesterolemia who presents with facial swelling that started today with change in voice and difficulty swallowing. On Saturday he drank a vitamin beverage that apparently had a bee in it. he had significant diarrhea. He states he had 9 mushy watery stools. There is no vomiting. His who is a physician noted that his eyes were injected Saturday. The mouth sores may have started before Saturday. 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 He has not noted a rash. Prior similar symptoms: No Recent Illness/Hospitalization: No PFSH PFS Medical History Abnormal cardiovascular stress test Atherosclerotic heart disease of [place] coronary artery without angina pectoris BPH (benign prostatic hyperplasia) Coronary artery disease Elevated coronary artery calcium score Essential hypertension Food impaction of esophagus Hypercholesterolemia Schatzki's ring Home Medications finasteride 1 mg tablet 1 mg PO DAILY 08/03/19 [History Last Taken 05/18/21] insulin aspart U-100 100 unit/mL (3 mL) subcutaneous pen See Protocol SQ DAILY 08/03/19 [History Last Taken 1 Day Ago ~04/21/21] insulin glargine 100 unit/mL (3 mL) subcutaneous pen 10 units SQ ACHS 08/03/19 [History Last Taken 1 Day Ago ~04/21/21] levothyroxine 175 mcg tablet 175 mcg PO DAILY 08/03/19 [History Last Taken 05/18/21] lisinopril 2.5 mg tablet 2.5 mg PO DAILY 08/03/19 [History Last Taken 05/18/21] omeprazole 20 mg tablet,delayed release 20 mg PO DAILY 08/03/19 [History Last Taken 05/18/21] insulin glargine 100 unit/mL subcutaneous cartridge 20 unit subcut DAILY 04/22/21 [History Last Taken 1 Day Ago ~04/21/21] aspirin 81 mg tablet,delayed release (Adult Aspirin Regimen) 81 mg PO DAILY 05/15/21 [History Last Taken 05/18/21] tadalafil 5 mg tablet 0.5 tab PO DAILY 01/07/22 [History Last Taken Unknown] famotidine 20 mg tablet (Pepcid) 20 mg PO BID #7 tabs 03/24/22 [Rx Last Taken Unknown] naproxen sodium 220 mg tablet (Aleve) 660 mg PO BID PRN Pain 03/24/22 [History Last Taken Unknown] prednisone 20 mg tablet 60 mg PO DAILY #12 TABLETS 03/24/22 [Rx Last Taken Unknown] rosuvastatin 40 mg tablet (Crestor) 20 mg PO DAILY 03/24/22 [History Last Taken Unknown] vit [id number] 500 mg-50 mg-25 mg-40 mg tablet (Bioflex) tab PO 03/24/22 [History Last Taken Unknown] Allergy/AdvReac Type Severity Reaction Status Date / Time No Known Allergies Allergy Verified 03/24/22 08:32 Surgical History History of esophagogastroduodenoscopy (EGD) (08/2019) History of left heart catheterization (05/18/21) Social History (Updated 03/24/22 @ 08:[address] Gray Phillip MD) household members: spouse Smoking Status: Never smoker alcohol intake: current substance use type: does not use ROS ROS ED Constitutional Constitutional ED: Denies chills, fever(s), subjective, sweats or weight loss Eyes Eyes: Reports other Details: Per HPI ; Denies blurry vision, change in vision or diplopia ENT ENT ED: Reports sore throat and other Details: Per HPI ; Denies ear pain or rhinorrhea Cardiovascular Cardiovascular: Denies chest pain or palpitations Respiratory/Chest Respiratory/Chest: Denies cough, dyspnea or dyspnea on exertion Gastrointestinal Gastrointestinal: Reports diarrhea; Denies abdominal pain, constipation, melena, nausea or vomiting Genitourinary Genitourinary ED: Denies dysuria, hematuria or urinary frequency Musculoskeletal Musculoskeletal: Denies arthralgias, back pain, myalgias or neck pain Integumentary Reports rash and other Details: Rash developed since patient's arrival. 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 Patient was diagnosed with COVID April 2021. ; Denies weakness Endocrine Endocrinology: Denies polydipsia, polyphagia or polyuria Hematologic/Lymphatic Hematologic/Lymphatic: Reports systems reviewed and no addt'l complaints, except as documented and as per HPI; Denies anemia or easy bruising Allergic/Immunologic Allergic/Immunologic ED: Reports mouth swelling and tongue swelling; Denies urticaria EXAM Physical Exam Const Vital Signs: 03/24/22 08:32 03/24/22 11:32 03/24/22 10:31 Temperature 97.3 F L Temperature Source Temporal Pulse Rate 95 77 86 Respiratory Rate 18 18 18 Blood Pressure 152/89 H 140/73 H 146/80 H Blood Pressure Mean 110 95 102 Pulse Ox 98 96 100 Oxygen Delivery Method Room Air Room Air Room Air Positive well nourished and well developed General Appearance ED: well developed and NAD; Negative for pallor HEENT Reports moist mucous membranes HEENT Narrative: Uvula is swollen. Tongue may be slightly swollen. Patient has erythema of the buccal surface with ulcerative lesions that are sensitive/tender. There is also evidence of angioedema of the lower lip. Gingiva appears normal. There is facial swelling involving predominantly the lower eyelids compared to upper. Ears are normal. Eyes PERRL and EOMs intact bilaterally Eyes Narrative: Conjunctive is injected. There is an ulcerative lesion noted lower lid laterally on the right only. General Eye ED: Negative for pale conjunctiva or scleral icterus Neck no lymphadenopathy, supple and no JVD Neck Narrative: Trachea is midline. There is no inspiratory expiratory stridor. Chest Wall inspection of chest normal and palpation of chest normal Resp normal respiratory effort and clear to auscultation bilaterally Cardio regular rate, regular rhythm, S1 normal heart sound, S2 normal heart sound and no murmurs GI normal to inspection, nondistended, normoactive bowel sounds, non-tender, non-distended and no masses; Negative for hepatosplenomegaly Palpation: soft Narrative: There is no inguinal lymphadenopathy. Back/Spine no CVA tenderness Extremity normal to inspection Extremity Narrative: There is no axillary lymphadenopathy. Neuro oriented x3, CN's II-XII intact bilaterally and no sensory deficits noted Sensorium / Orientation: alert Motor Exam: strength 5/5 throughout Psych mental status grossly normal Skin No no rashes or lesions noted Skin Narrative: She has a blanching erythematous rash. There is a negative Nikolsky sign. General Skin Exam: Negative for jaundice or pallor MDM MDM MDM Narrative Medical decision making narrative: Initially with no rash concerned this may represent angioedema due to lisinopril. Since patient has developed a blanching erythematous rash concerned this is an allergic reaction. However with involvement of the conjunctive a and oral mucosa need to entertain possibility of Barrera-Nael syndrome major. Also concerned that the lesions in his mouth may represent herpetic infection. Since patient now has erythematous blanching rash with angioedema concerned this represents allergic reaction. Since he has dysphonia and had difficulty swallowing this morning when he drank a beverage at home we will treat with epinephrine, H1 and H2 jed and Solu-Medrol. Lab Data Attestation: I reviewed the patient's lab results. Labs: Laboratory Results - last 24 hr 03/24/22 03/24/22 03/24/22 08:55 08:55 08:55 WBC 7.3 RBC 4.72 Hgb 15.3 Hct 44.6 MCV 94.5 H MCH 32.4 H MCHC 34.3 RDW Std Deviation 44.1 H RDW Coeff of Elier 12.6 Plt Count 303 MPV 9.5 Immature Gran % (Auto) 0.100 Neut % (Auto) 70.9 H Lymph % (Auto) 12.6 L Prentiss % (Auto) 8.9 Eos % (Auto) 7.0 H Baso % (Auto) 0.5 Absolute Neuts (auto) 5.2 Absolute Lymphs (auto) 0.92 Nucleated RBC % 0 ESR 5 PT 13.9 INR 1.1 APTT 26.0 Sodium 139 Potassium 4.3 Chloride 106 Carbon Dioxide 29.0 Anion Gap 4 L BUN 18 Creatinine 1.15 Estim Creat Clear Calc 81.06 Est GFR (MDRD) Af Amer 84 Est GFR (MDRD) Non-Af 70 BUN/Creatinine Ratio 15.7 Glucose 143 H Calcium 9.6 Total Bilirubin 0.80 AST 27 ALT 35 Alkaline Phosphatase 61 C-React Prot Ext Range 8.49 H Total Protein 7.0 Albumin 3.4 Globulin 3.6 Albumin/Globulin Ratio 0.9 Treatment and Re-Evaluation Narrative: Patient was reassessed at 1015. Facial swelling is improved. Swelling of his lip has improved significantly. His uvula is no longer edematous. His blanching erythematous rash has resolved. Patient was reassessed at 1145. His facial swelling has essentially resolved. Conjunctivitis has improved. There is no angioedema noted. There is no wheezing with auscultation of lungs. Heart is regular. There is no hemodynamic instability. Patient was reassessed at 1248. His symptoms have totally resolved. His has an EpiPen at home. She will contact Dr. Ohara for allergy testing. 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 and Performing Direct Patient Care at Bedside Discharge Plan Triage Chief Complaint: Allergic Reaction Other Complaint: Edema ED Provider: Gray Phillip Dx/Rx/DC Orders Clinical Impression: Allergic angioedema, Diarrhea, Essential hypertension, Hypothyroidism, Hyperglycemia due to type 1 diabetes mellitus Prescriptions: New prednisone 20 mg tablet 60 mg PO DAILY Qty: 12 0RF famotidine [Pepcid] 20 mg tablet 20 mg PO BID Qty: 7 0RF No Action levothyroxine 175 MCG tablet 175 mcg PO DAILY lisinopril 2.5 MG tablet 2.5 mg PO DAILY finasteride 1 MG tablet 1 mg PO DAILY insulin aspart U-100 100 unit/mL (3 mL) insulin pen See Protocol SQ DAILY Protocol: 2. Sliding Scale Insulin Low-Med Dosing Condition: 150-209 mg/dl = 1 unit Condition: 210-269 mg/dl = 2 units Condition: 270-329 mg/dl = 3 units Condition: 330-389 mg/dl = 4 units Condition: 390-449 mg/dl = 5 units Condition: Greater than 449 call physician Protocol Text: - Use for Total Daily Dose of Insulin 28-36 units - Average size patients LOW MEDIUM DOSING ALGORITHM insulin glargine 100 unit/mL (3 mL) insulin pen 10 units SQ ACHS Rx Instructions: SLIDING SCALE NO MORE THAN 10 omeprazole 20 MG tablet,delayed release (DR/EC) 20 mg PO DAILY Lantus U-100 Insulin 100 unit/mL Cartridge 20 unit SUBCUT DAILY tadalafil 5 mg tablet 0.5 tab PO DAILY Label Comments: TAKE 1 TABLET BY MOUTH EVERY DAY naproxen sodium [Aleve] 220 mg Tablet 660 mg PO BID PRN (Reason: Pain) rosuvastatin [Crestor] 40 mg tablet 20 mg PO DAILY Bioflex 856-51-76-40 mg Tablet PO aspirin [Adult Aspirin Regimen] 81 mg tablet,delayed release (DR/EC) 81 mg PO DAILY Primary Care Provider: Lina Kumar Referrals: Lina Kumar DO [Primary Care Provider] - Activity Restrictions/Additional Instructions: 1. Contact Dr. Ohara for allergy testing 2. Take 25 mg of Benadryl every 6 hours for the next 3 days. 3. Take prescribed medication until gone. Disposition Disposition: Home, Self Care
[2022-03-24] MEDS: DiphenhydrAMINE 50 MG/ML Syringe 25 MG IV (09:06)
[2022-03-24] MEDS: MethylPREDNISolone 125 MG/2 ML Vial IV (09:08)
[2022-03-24] MEDS: Famotidine 200 MG/20 ML MDV 20 MG in 0.9% Normal Saline (Pres. free 8 ML 300 MG IV (09:13)
[2022-03-24] MEDS: Epi Pen (EQUIV) 0.3 MG Syringe IM (09:14)
[2022-03-24 09:15] LABS: Erythrocyte Sedimentation Rate 5 mm/hr (0-20)
[2022-03-24 09:16] LABS: Absolute Lymphocyte Count 0.92 X10^3/uL (0.83-4.51); Absolute Neutrophil Count 5.2 X10^3/uL (2.0-7.7); Basophil# 0.04 X10^3/uL; Basophil% 0.5 % (0-1); Eosinophil# 0.51 X10^3/uL; Hematocrit 44.6 % (40-54); Hemoglobin 15.3 g/dL (13.0-16.5); Lymphocyte # 0.92 X10^3/ul (0.83-4.51); Lymphocyte % 12.6 % (19-41); Mean Corp Hgb Conc 34.3 g/dL (32-36); Mean Corpuscular Hgb 32.4 pg (27.0-32.0); Mean Corpuscular Volume 94.5 fL (80-94); Mean Platelet Vol. 9.5 fl (6.2-12.0); Monocyte# 0.65 X10^3/uL; Monocyte% 8.9 % (0-10); NRBC Flagged by Analyzer 0 % (0-5); Neutrophil # 5.16 X10^3/uL (2.7-7.7); Neutrophil % 70.9 % (47-70); Platelet Count 303 K/mm3 (150-450); RBC Distribution Width CV 12.6 % (11.6-14.6); RBC Distribution Width SD 44.1 fl (35.1-43.9); Red Blood Count 4.72 M/mm3 (4.6-6.2); White Blood Count 7.3 K/mm3 (4.4-11.0)
[2022-03-24] MEDS: 0.9% Normal Saline 1,000 ML 150 ML IV (09:17)
[2022-03-24 09:20] LABS: International Normalized Ratio 1.1; Prothrombin Time (Protime)PT. 13.9 SECONDS (11.7-14.9)
[2022-03-24 09:32] LABS: ALB/GLOB Ratio 0.9 RATIO (0.9-2.4); AST(SGOT) 27 U/L (15-37); Alanine Aminotransfer ALT/SGPT 35 U/L (16-61); Albumin, Serum 3.4 g/dL (3.2-5.0); Alkaline Phosphatase 61 U/L (45-117); Anion Gap 4 (5-15); BUN 18 mg/dL (7-18); BUN/Creat Ratio 15.7 RATIO (10-20); CRP 8.49 mg/L (0.0-3.0); Calcium,Total 9.6 mg/dL (8.5-10.1); Chloride 106 mmol/L (98-107); Creatinine, Serum 1.15 mg/dL (0.70-1.30); EST Glomerular Filtration Rate 70 mL/min (>60); Est Glom Filt Rate - Afr Amer 84 mL/min (>60); Estimated Creatinine Clearance 81.06 ml/min; Globulin 3.6 g/dL (2.2-4.2); Glucose 143 mg/dL (74-106); Potassium 4.3 mmol/L (3.5-5.1); Sodium Level 139 mmol/L (136-145)
[2022-03-24 10:31] VITALS: BP 146/80; PULSE 86; RESP 18; O2SAT 100
[2022-03-24 11:32] VITALS: BP 140/73; PULSE 77; RESP 18; O2SAT 96
[2022-03-24 13:01] VITALS: BP 138/74; PULSE 81; RESP 18; O2SAT 97
[2022-03-29 08:08] LABS: HSV 1 By PCR Negative (Negative)
[2022-03-29 09:43] LABS: HSV 2 By PCR Negative (Negative)
== END 2022-03-24 13:06 | disposition home or self-care (01) ==
PROVIDERS: Emergency Provider Emergency Medicine; PCP Internal Medicine; Visit Provider Emergency Medicine
DX: T78.40XA Allergy, unspecified, initial encounter (principal); E10.65 Type 1 diabetes mellitus with hyperglycemia; Z79.4 Long term (current) use of insulin; I10 Essential (primary) hypertension; I25.10 Atherosclerotic heart disease of native coronary artery without angina pectoris; E03.9 Hypothyroidism, unspecified; R19.7 Diarrhea, unspecified; E78.00 Pure hypercholesterolemia, unspecified; K21.9 Gastro-esophageal reflux disease without esophagitis; N40.0 Benign prostatic hyperplasia without lower urinary tract symptoms; Z79.899 Other long term (current) drug therapy; Z79.82 Long term (current) use of aspirin; Z79.52 Long term (current) use of systemic steroids
CPT/HCPCS: 80053; 85025; 85610; 85652; 85730; 86140; 87529; 87880; 93005; 99285; J7030; J3490

== ENCOUNTER 2022-08-29 06:03 | Day surgery (SDC) | payer BC, SELFPAY ==
[2022-08-29 06:36] VITALS: BP 150/87; PULSE 84; RESP 16; TEMP 36.6; O2SAT 97; BMI 22.6
--- NOTE | 2022-08-29 06:41 | PCM.HP.STD ---
[facility] - General General Date of Admission: 08/29/22 Date of Service: 08/29/22 Chief Complaint: Screening colonoscopy HPI Narrative DARRIUS PARKER, is a 57 M who presents today for screening colonoscopy. He denies any abdominal pain. He has a past medical history of CAD, hypothyroidism, hypercholesterolemia, gastroesophageal reflux use and type 1 diabetes. He arrives here for screening colonoscopy. He also denies any constipation, diarrhea or lower GI bleeding. He had a colonoscopy possibly 10 years ago and that was normal. He does have a positive family history of colon cancer in his father. [facility] Medical History (Updated 08/23/22 @ 09:23 by Carol Ann Clarke) Abnormal cardiovascular stress test Arthritis Atherosclerotic heart disease of [place] coronary artery without angina pectoris Back pain Bilateral foot pain BPH (benign prostatic hyperplasia) Cardiology follow-up encounter Change in bowel habits Coronary artery disease Diabetes Diarrhea, secretory Elevated coronary artery calcium score Erectile dysfunction Essential hypertension Family history of malignant neoplasm of digestive organs Food impaction of esophagus Gastric reflux Hair loss High cholesterol History of pain when walking History of steroid therapy History of stress test Hypercholesterolemia Insulin dependent diabetes mellitus Kidney stones Lumbar radiculopathy Mouth ulcers Non-smoker Odynophagia Osteoarthritis Polyuria PVD (peripheral vascular disease) Schatzki's ring Thyroid disease Ulnar neuropathy Vitamin D deficiency Home Medications finasteride 1 mg tablet 1 mg PO DAILY 08/03/19 [History Last Taken 05/18/21] insulin aspart U-100 100 unit/mL (3 mL) subcutaneous pen (Novolog FlexPen U-100 Insulin aspart) See Protocol SQ DAILY 08/03/19 [History Last Taken 1 Day Ago ~04/21/21] insulin glargine 100 unit/mL (3 mL) subcutaneous pen 20 units SQ 0800 08/03/19 [History Last Taken 1 Day Ago ~04/21/21] levothyroxine 175 mcg tablet 175 mcg PO DAILY 08/03/19 [History Last Taken 05/18/21] lisinopril 2.5 mg tablet 2.5 mg PO DAILY 08/03/19 [History Last Taken 05/18/21] omeprazole 20 mg tablet,delayed release 20 mg PO DAILY 08/03/19 [History Last Taken 05/18/21] aspirin 81 mg tablet,delayed release (Adult Aspirin Regimen) 81 mg PO DAILY 05/15/21 [History Last Taken 05/18/21] tadalafil 5 mg tablet 0.5 tab PO DAILY 01/07/22 [History Last Taken Unknown] naproxen sodium 220 mg tablet (Aleve) 660 mg PO BID PRN Pain 03/24/22 [History Last Taken Unknown] rosuvastatin 40 mg tablet (Crestor) 10 mg PO DAILY 03/24/22 [History Last Taken Unknown] vit [id number] 500 mg-50 mg-25 mg-40 mg tablet (Bioflex) 2 tab PO DAILY 03/24/22 [History Last Taken Unknown] Allergy/AdvReac Type Severity Reaction Status Date / Time No Known Allergies Allergy Verified 08/29/22 06:35 Family History Father Colon cancer Other Thyroid disorder Surgical History (Updated 08/23/22 @ 09:23 by Carol Ann Clarke) History of colonoscopy History of esophagogastroduodenoscopy (EGD) (08/2019) History of left heart catheterization (05/18/21) Hx of knee surgery Social History household members: spouse Smoking Status: Never smoker alcohol intake: current substance use type: does not use ROS Review of Systems ROS Unobtainable: other Constitutional Constitutional: Denies fatigue, fever(s), poor appetite, weight gain or weight loss ENT HEENT: Denies mouth lesions Cardiovascular Cardiovascular: Denies abdominal bloating, abdominal edema or abdominal pain Respiratory/Chest Respiratory/Chest: Denies change in mental status, change in phlegm color, chest congestion or chest tightness Gastrointestinal Gastrointestinal: Denies belching, bloating, change in bowel habits, change in stool character, chewing difficulty, coffee ground emesis, constipation, cramping, diarrhea, dyspepsia, dysphagia, early satiety, excessive flatus, fecal incontinence, heartburn, hematemesis, hematochezia, hemorrhoids, loose stools, melena, nausea, odynophagia, rectal bleeding, tenesmus, vomiting or weight changes Genitourinary Genitourinary: Denies abdominal discomfort, burning urination or itching Musculoskeletal Musculoskeletal: Reports as per HPI; Denies muscle weakness or myalgias Integumentary Integumentary: Denies jaundice Neurologic Neurologic: Denies lack of coordination or weakness Psychiatric Psychiatric: Denies confusion, depression, memory loss, mood swings, paranoia or suicidal ideation Endocrine Endocrinology: Denies systems reviewed and no addt'l complaints, except as documented Hematologic/Lymphatic Hematologic/Lymphatic: Denies anemia, easy bleeding, easy bruising or lymphadenopathy Allergic/Immunologic Allergic/Immunologic: Denies systems reviewed and no addt'l complaints, except as documented Vital Signs Vital Signs Vital Signs: 08/29/22 06:36 08/29/22 06:40 Temperature 97.8 F Temperature Source Temporal Pulse Rate 84 Respiratory Rate 16 Respiratory Pattern Normal Blood Pressure 150/87 H Blood Pressure Mean 108 Blood Pressure Source Monitor Blood Pressure Position Semi-Fowlers Blood Pressure Location Left Arm Pulse Ox 97 Oxygen Delivery Method Room Air Weight Weight: 171 lb 15.369 oz Body Mass Index (BMI) 22.6 Physical Exam Const alert General Appearance: cooperative Orientation / Consciousness: oriented to person HEENT hearing grossly normal bilaterally Head and Scalp: normal to inspection Face and Sinus: face symmetric Nose: external nose normal Mouth: oral and palatal mucosa normal Eyes conjunctivae normal General Eye: normal appearance of both eyes Neck full ROM General: normal visual inspection Lymph Lymphatic: no lymphadenopathy noted Chest inspection of chest normal and palpation of chest normal Chest: symmetrical chest wall rise Resp normal respiratory effort Effort and Inspection: able to speak in complete sentences Cardio regular rate GI non-distended Percussion: normal to percussion Rectal Exam: deferred Neuro Speech: speech normal Gait (Neuro): normal gait Assessment & Plan Assessment/Plan (1) Encounter for screening for malignant neoplasm of colon: PLAN: He was explained alternatives, risk, benefits including outstanding bleeding, infection, sepsis, perforation, need for mergers or . He will have an ASA of 1.
[2022-08-29] MEDS: Lactated Ringers 1,000 ML 15 ML IV (06:47)
--- NOTE | 2022-08-29 07:00 | COLBX_PTH ---
PATIENT: DARRIUS PARKER LOC: EN U#:[id number] AGE/SX: 57/M ROOM: RE08/29/[address]: Dr. Ashok Billingsley DO : 1965 BED: DIS: 08/29/2022 SPEC #: [id number] RECD: 08/29/22 10:27 STATUS: AMANDA TERRI #: [id number] ERICK: 08/29/22 07:[address]: Ashok Billingsley DEPT: SURGICAL PATHOLOGY RECD BY: Jay Jay Paul ENTERED: 08/29/22 11:05 SP TYPE: COLON BX OTHR DR: Dr. Lina Kumar DO Tissues: Sigmoid colon biopsy Procedures: Surgery Specimen Level IV HEADER OPERATION: Colonoscopy ? open access (MAC) with biopsy PRE-OP DIAGNOSIS: Screening TISSUE SUBMITTED: Sigmoid polyp biopsy MICROSCOPIC DIAGNOSIS Sigmoid polyp, biopsy: Tubular adenoma. TRACY:marcos 08/30/2022 MICROSCOPIC DESCRIPTION Slides are reviewed. GROSS DESCRIPTION Received in fixative is one container labeled with the patient's name and designated sigmoid polyp biopsy. The specimen consists of one irregular fragment of light lenz soft tissue that measures 0.2 x 0.2 x 0.1 cm. The specimen is totally submitted in one cassette. / SJ:marcos 08/29/2022 TC:1 CPT: 47527
[2022-08-29 07:33] VITALS: BP 114/69; BP 150/87; PULSE 65; RESP 12; TEMP 36.3; O2SAT 98
[2022-08-29 07:35] VITALS: BP 111/68; BP 150/87; PULSE 65; RESP 12; O2SAT 98
--- NOTE | 2022-08-29 07:35 | OP.CCLET_ITS ---
08/29/2022 Lina Kumar Re : Colonoscopy procedure for [place] Price Dearamiro Kumar This procedure was performed on Monday, August 29, 2022. My impressions and recommendations are as follows: Impressions : - One 5 mm polyp in the sigmoid colon, removed with a jumbo cold forceps. Resected and retrieved. Recommendations : - Repeat colonoscopy in 5 years for surveillance. - Continue present medications. My findings are described in the full procedure note, which is enclosed. If I can be of further assistance, please feel free to contact me at . Sincerely, Ashok Billingsley, 08/29/2022 7:35:18 AM This report has been signed electronically.
--- NOTE | 2022-08-29 07:35 | OP.COLON_ITS ---
Patient Name: Kashmir Price Procedure Date: 08/29/2022 7:05 AM Date of : 1965 Age: 57 Procedure: Colonoscopy Indications: Screening for colorectal malignant neoplasm Providers: Ashok Billingsley DO Medicines: Monitored Anesthesia Care Patient Profile: This is a 57 year old male. Refer to note in patient chart for documentation of history and physical. Last Colonoscopy: 10 years ago. Complications: No immediate complications. Procedure: Pre-Anesthesia Assessment: - Prior to the procedure, a History and Physical was performed, and patient medications and allergies were reviewed. The risks and benefits of the procedure and the sedation options and risks were discussed with the patient. All questions were answered and informed consent was obtained. Patient identification and proposed procedure were verified by the physician in the pre-procedure area. Mental Status Examination: alert and oriented. Airway Examination: normal oropharyngeal airway and neck mobility. Respiratory Examination: clear to auscultation. CV Examination: normal. Prophylactic Antibiotics: The patient does not require prophylactic antibiotics. Prior Anticoagulants: The patient has taken no previous anticoagulant or antiplatelet agents. After reviewing the risks and benefits, the patient was deemed in satisfactory condition to undergo the procedure. The anesthesia plan was to use moderate sedation / analgesia (conscious sedation). Immediately prior to administration of medications, the patient was re-assessed for adequacy to receive sedatives. The heart rate, respiratory rate, oxygen saturations, blood pressure, adequacy of pulmonary ventilation, and response to care were monitored throughout the procedure. The physical status of the patient was re-assessed after the procedure. After I obtained informed consent, the scope was passed under direct vision. Throughout the procedure, the patient's blood pressure, pulse, and oxygen saturations were monitored continuously. The colonoscope was introduced through the anus and advanced to the cecum, identified by appendiceal orifice and ileocecal valve. The terminal ileum, ileocecal valve, appendiceal orifice, and rectum were photographed. Scope In: 7:16:39 AM Scope Withdrawal Time 0 hours 9 minutes 50 seconds Scope Out: 7:29:36 AM Total Procedure Duration Time 0 hours 12 minutes 57 seconds Findings: The perianal and digital rectal examinations were normal. A 5 mm polyp was found in the sigmoid colon. The polyp was sessile. The polyp was removed with a jumbo cold forceps. Resection and retrieval were complete. Verification of patient identification for the specimen was done. Estimated blood loss was minimal. Impression: - One 5 mm polyp in the sigmoid colon, removed with a jumbo cold forceps. Resected and retrieved. Recommendation: - Repeat colonoscopy in 5 years for surveillance. - Continue present medications. Procedure Code(s): --- Professional --- 12374, Colonoscopy, flexible; with biopsy, single or multiple CPT copyright 2017 [employer]. All rights reserved. The codes documented in this report are preliminary and upon conference services director review may be revised to meet current compliance requirements. Ashok Billingsley DO 08/29/2022 7:35:18 AM This report has been signed electronically. Number of Addenda: 0 Note Initiated On: 08/29/2022 7:05 AM
[2022-08-29 07:40] VITALS: BP 127/77; BP 150/87; PULSE 68; RESP 18; O2SAT 98
[2022-08-29 07:45] VITALS: BP 130/80; BP 150/87; PULSE 66; RESP 12; TEMP 36.5; O2SAT 99
[2022-08-29 07:57] VITALS: BP 150/87
== END 2022-08-29 08:05 | disposition home or self-care (01) ==
LOC: EN 06:04 → AC 06:13
PROVIDERS: PCP Internal Medicine; Referring Provider Internal Medicine; Visit Provider Internal Medicine Gastroenterology
PROC: 0DJD8ZZ Inspection of Lower Intestinal Tract, Via Natural or Artificial Opening Endoscopic (ICD-10-PCS; CPT 45378; principal; 2022-08-29 06:55)
DX: Z12.11 Encounter for screening for malignant neoplasm of colon (principal); E10.9 Type 1 diabetes mellitus without complications; Z79.4 Long term (current) use of insulin; K21.9 Gastro-esophageal reflux disease without esophagitis; I25.10 Atherosclerotic heart disease of native coronary artery without angina pectoris; Z79.82 Long term (current) use of aspirin; E78.00 Pure hypercholesterolemia, unspecified; D12.5 Benign neoplasm of sigmoid colon
CPT/HCPCS: 45380; 88305; J7120; J2405

== ENCOUNTER → 2022-09-17 | Outpatient (CLI) | payer BC, SELFPAY | END | disposition home or self-care (01) | LOC: LABSPEC 11:55 | PROVIDERS: PCP Internal Medicine; Referring Provider Internal Medicine; Visit Provider Internal Medicine | DX: E03.9 Hypothyroidism, unspecified (principal) | CPT/HCPCS: 84443 ==

== ENCOUNTER → 2022-09-27 | Outpatient (CLI) | payer BC, SELFPAY ==
[2022-09-27 10:35] LABS: Troponin-I HS 5 pg/mL (3.0-78.0)
[2022-09-28 11:26] LABS: ALB/GLOB Ratio 0.8 RATIO (0.9-2.4); AST(SGOT) 37 U/L (15-37); Alanine Aminotransfer ALT/SGPT 45 U/L (16-61); Albumin, Serum 3.1 g/dL (3.2-5.0); Alkaline Phosphatase 87 U/L (45-117); Anion Gap 4 (5-15); BUN 25 mg/dL (7-18); BUN/Creat Ratio 22.5 RATIO (10-20); Calcium,Total 9.9 mg/dL (8.5-10.1); Chloride 98 mmol/L (98-107); Creatinine, Serum 1.11 mg/dL (0.70-1.30); EST Glomerular Filtration Rate 73 mL/min (>60); Est Glom Filt Rate - Afr Amer 88 mL/min (>60); Globulin 3.9 g/dL (2.2-4.2); Glucose 190 mg/dL (74-106); Potassium 3.9 mmol/L (3.5-5.1); Sodium Level 133 mmol/L (136-145)
== END | disposition home or self-care (01) ==
LOC: LABSPEC 10:13
PROVIDERS: PCP Internal Medicine; Referring Provider Internal Medicine; Visit Provider Internal Medicine
DX: R50.82 Postprocedural fever (principal)
CPT/HCPCS: 80053; 84484

== ENCOUNTER → 2022-09-28 | Outpatient (CLI) | payer BC, SELFPAY ==
[2022-09-28 12:27] LABS: Bacteria 0 SEEN /hpf (None Seen); Mucous, Urine 0 SEEN /hpf (<or=2+); Red Blood Cells-Urine 0 SEEN /hpf (0-5); Squamous Epithelial Cells - UA 0 SEEN /hpf (0-5); White Blood Cells 0 SEEN /hpf (0-5)
[2022-09-28 13:23] LABS: Color, Urine Yellow (Yellow); Glucose, Dipstick Normal (Normal); Ketone-Dipstick Negative (Negative); Leukocyte Esterase-Dipstick Negative /ul (Negative); Nitrite-Dipstick Negative (Negative); Occult Blood-Urine Negative /ul (Negative); Protein-Dipstick Negative (Negative); Urine Bilirubin Dipstick Negative (Negative); Urine Clarity Clear (Clear); Urine Urobilinogen Normal (Normal)
[2022-09-28 15:24] LABS: Hematocrit 38.5 % (40-54); Hemoglobin 12.6 g/dL (13.0-16.5); Mean Corp Hgb Conc 32.7 g/dL (32-36); Mean Corpuscular Hgb 30.7 pg (27.0-32.0); Mean Corpuscular Volume 93.9 fL (80-94); Mean Platelet Vol. 9.5 fl (6.2-12.0); Platelet Count 463 K/mm3 (150-450); RBC Distribution Width CV 12.5 % (11.6-14.6); RBC Distribution Width SD 43.2 fl (35.1-43.9); White Blood Count 6.9 K/mm3 (4.4-11.0)
== END | disposition home or self-care (01) ==
PROVIDERS: PCP Internal Medicine; Referring Provider Internal Medicine; Visit Provider Internal Medicine
DX: R50.82 Postprocedural fever (principal)
CPT/HCPCS: 81001; 85027; 87086

== ENCOUNTER → 2023-06-03 | Outpatient (CLI) | payer BC, SELFPAY ==
[2023-06-03 15:20] LABS: Absolute Lymphocyte Count 0.76 X10^3/uL (0.83-4.51); Absolute Neutrophil Count 6.9 X10^3/uL (2.0-7.7); Basophil# 0.04 X10^3/uL; Basophil% 0.5 % (0-1); Eosinophil# 0.17 X10^3/uL; Hemoglobin 10.5 g/dL (13.0-16.5); Lymphocyte # 0.76 X10^3/ul (0.83-4.51); Lymphocyte % 8.8 % (19-41); Mean Corp Hgb Conc 31.8 g/dL (32-36); Mean Corpuscular Hgb 28.5 pg (27.0-32.0); Mean Corpuscular Volume 89.4 fL (80-94); Mean Platelet Vol. 10.3 fl (6.2-12.0); Monocyte# 0.73 X10^3/uL; Monocyte% 8.5 % (0-10); NRBC Flagged by Analyzer 0 % (0-5); Neutrophil # 6.86 X10^3/uL (2.7-7.7); Neutrophil % 79.5 % (47-70); Platelet Count 358 K/mm3 (150-450); RBC Distribution Width CV 13.2 % (11.6-14.6); RBC Distribution Width SD 43.4 fl (35.1-43.9); Red Blood Count 3.69 M/mm3 (4.6-6.2); White Blood Count 8.6 K/mm3 (4.4-11.0)
[2023-06-03 15:37] LABS: Anion Gap 5 (5-15); BUN 19 mg/dL (7-18); BUN/Creat Ratio 18.1 RATIO (10-20); CPK Total, Creatine Kinase 152 U/L (39-308); Calcium,Total 9.1 mg/dL (8.5-10.1); Chloride 100 mmol/L (98-107); Creatinine, Serum 1.05 mg/dL (0.70-1.30); EST Glomerular Filtration Rate 77 mL/min (>60); Est Glom Filt Rate - Afr Amer 93 mL/min (>60); Glucose 139 mg/dL (74-106); Potassium 4.3 mmol/L (3.5-5.1); Sodium Level 136 mmol/L (136-145)
== END | disposition home or self-care (01) ==
LOC: LABSPEC 15:06
PROVIDERS: PCP Internal Medicine; Visit Provider Internal Medicine
DX: R50.9 Fever, unspecified (principal)
CPT/HCPCS: 80048; 82550; 85025

== ENCOUNTER 2023-07-25 08:00 | Outpatient (RCR) | payer BC, SELFPAY ==
--- NOTE | 2023-07-09 08:00 | HP.PTEVAL_ITS ---
Patient's Visit Information Visit Information Visit Information: DARRIUS PARKER is a 58 year old M referred to Physical Therapy by Dr. Ricci Polk MD with a diagnosis of Bilateral total knee replacement (DOS: 05/30/23). Date of Evaluation: 07/04/23 Physical Therapist: Shahram Guerra DPT Visit Plan Frequency: 1-2x /Week Duration: 4 Weeks Plan: 1) Stretch hamstrings, quads, calves 2) Improve mendy knee ROM (PROM and AROM) 3) Improve mendy LE strength, progress to sports-specific/gym ex (plays basketball in free time) 4) Improve dynamic balance, DL and SL (HEP: standing hamstring stretch, quad sets, seated adductor stretch, prone quad stretch) Subjective Subjective: Pt had a mendy knee replacement 05/30/23 and had [facility] PT. Pt has some stiffness and pain with end range flexion when sitting. Pt reports some issues with weakness in legs and lateral movement in basketball. Pt gets nervous with sitting for prolonged periods of time, able to do 20-30 minutes but then needs to sit up. Pt plans to get back into pool and working out regularly. He is a retired teacher. Pt reports doing well and his physician is happy with the outcome of the sx. Using ice compression machine to help with pain and stiffness, regularly performs HEP from [facility] PT. Pain Bilateral Knee: Pain Intensity (Out of 10): 0 Pain Intensity Range: 0 and 4 Comment: discomfort Objective Objective: MMT: Knee ext R 34.3, L 33.4 Knee flex: R 30, L 44.3 Hip flex: R 30.2, L 33.4 Hip ABD: R 32, L 34 ROM: R Knee: 130 flex, lacking 5 deg L Knee: 105 flex, lacking 8 deg more pain and stiffness with end range PALPATION: TTP and tightness in mendy quads, hamstrings, ITB GAIT: some add of RLE, lacking full knee ext in stance phase, mild mendy [place] STAIRS: difficulty with uniform push off on RLE with ascending, pulling in mendy ant knees with descending, reciprocal pattern SQUAT: able to improve mechanics with VCs, pain in R knee at end range flex, L trunk deviation to avoid pain OBSERVATIONS: some LE edema present, no warmth or redness in mendy knees Balance/Special Test Scores Lower Extremity Functional Score: 59 Goals Goal 1:: Pt will be able to sit for 1+ hours with little to no discomfort or stiffness Goal Time Frame: 2-4 Weeks Goal 2:: Pt will demonstrate min to no tissue restriction in mendy hamstrings Goal Time Frame: 2 Weeks Goal 3:: Pt will be able to ascend/descend stair with normalized reciprocal pattern with decreased pain Goal Time Frame: 2-4 Weeks Goal 4:: Pt will demonstrate improved squat mechanics with no discomfort in mendy knees Goal Time Frame: 2-4 Weeks Goal 5:: Pt will be able to perform lateral cutting movements with <2/10 pain/discomfort Goal Time Frame: 2-4 Weeks Rehabilitation Potential Physical Therapy Diagnosis: Pt presents with diminished LE strength and mendy knee ROM secondary to mendy TKA. Pt would benefit from PT services to address ROM, LE strength, and gait/squatting mechanics to allow pt to return to prior level of functional and recreational act. Rehabilitation Potential: Excellent Anticipated Interventions Patient/Client Instruction: Educate patient on: Condition, Plan of Care and Benefits of Fitness Program For the Purpose of:: To decrease pain, To increase ROM, To improve muscle performance and motor function, To improve ability to perform ADL's, To improve performance and independence with ADL's, To decrease level of supervision to perform tasks, To improve ability of physical actions for home/community/work/l eisure, To improve gait and locomotor functions, To improve health of tissue, To decrease soft tissue restriction, To increase flexibility/ROM, To improve endurance, To improve balance, To improve safety with gait, To improve self management and To improve tolerance to ADL's Therapeutic Exercise to Include: Strength training, Endurance training, Balance training, Agility training, Body mechanics, Flexibilty training, Gait and locomotor training, Passive ROM and Active ROM For the Purpose of:: To decrease pain, To decrease swelling/inflammation, To increase ROM, To improve ability to perform ADL's, To increase tolerance to activity/condition/position, To improve ability of physical actions for home/community/work/leisure, To improve gait and locomotor functions, To decrease soft tissue restriction, To increase flexibility/ROM, To improve endurance, To improve safety with gait, To assume or resume ADL's, To prevent re-injury, To improve ability to perform tasks related to life management and To improve tolerance to ADL's Manual Therapy Techniques to Include: Mobilization, Passive ROM and Soft tissue mobilization For the Purpose of:: To decrease pain, To decrease swelling/inflammation, To increase ROM, To improve nutrient delivery to tissue, To increase flexibility/ROM, To improve endurance and To improve balance Cryotherapy (ice pack, ice massage): Yes Vasopneumatic device: Yes For the Purpose of:: To decrease pain, To decrease swelling/inflammation, To improve muscle performance and motor function and To improve health of tissue Text: Thank you for the opportunity to evaluate your patient. For Medicare and Medicare HMO plans, please review the plan of care and approve it. It will need to be FAXED BACK to us at [phone] for Medicare purposes. For Medicare only, by signing this I certify the plan of care. Please let me know if there are questions or concerns regarding this plan of care. Physician Signature: Date:
--- NOTE | 2023-09-26 10:09 | HP.PT.NRP ---
Patient Information Patient Information: DARRIUS PARKER was seen in my office for initial evaluation on 07/04/23. The following Plan of Care was established for this patient: POC Established Initial Frequency: 1-2x /Week Initial Duration: 4 Weeks Anticipated Interventions Patient/Client Instruction: Educate patient on: Condition, Plan of Care and Benefits of Fitness Program For the Purpose of:: To decrease pain, To increase ROM, To improve muscle performance and motor function, To improve ability to perform ADL's, To improve performance and independence with ADL's, To decrease level of supervision to perform tasks, To improve ability of physical actions for home/community/work/leisure, To improve gait and locomotor functions, To improve health of tissue, To decrease soft tissue restriction, To increase flexibility/ROM, To improve endurance, To improve balance, To improve safety with gait, To improve self management and To improve tolerance to ADL's Therapeutic Exercise to Include: Strength training, Endurance training, Balance training, Agility training, Body mechanics, Flexibilty training, Gait and locomotor training, Passive ROM and Active ROM For the Purpose of:: To decrease pain, To decrease swelling/inflammation, To increase ROM, To improve ability to perform ADL's, To increase tolerance to activity/condition/position, To improve ability of physical actions for home/community/work/leisure, To improve gait and locomotor functions, To decrease soft tissue restriction, To increase flexibility/ROM, To improve endurance, To improve safety with gait, To assume or resume ADL's, To prevent re-injury, To improve ability to perform tasks related to life management and To improve tolerance to ADL's Manual Therapy Techniques to Include: Mobilization, Passive ROM and Soft tissue mobilization For the Purpose of:: To decrease pain, To decrease swelling/inflammation, To increase ROM, To improve nutrient delivery to tissue, To increase flexibility/ROM, To improve endurance and To improve balance Cryotherapy (ice pack, ice massage): Yes Vasopneumatic device: Yes For the Purpose of:: To decrease pain, To decrease swelling/inflammation, To improve muscle performance and motor function and To improve health of tissue Last Seen Last Seen: This patient was last seen in our office 07/25/23. Pertinent comments regarding their Physical therapy will appear below: Pt. was seen in PT for his B TKA. Pt. was doing well. He has not been seen in ~2 months and will be DC from PT at this point in time. At this point I will be discontinuing this patient from physical therapy. I would be happy to see this patient again in the future if found appropriate by the physician. Thank you! Shahram Guerra, VALARIET Balance/Gait/Functional tests Balance/Special Test Scores Lower Extremity Functional Score: 59
== END 2023-07-25 19:00 | disposition home or self-care (01) ==
LOC: PT 08:00
PROVIDERS: PCP Internal Medicine; Referring Provider Orthopaedic Surgery; Visit Provider Orthopaedic Surgery
DX: M17.11 Unilateral primary osteoarthritis, right knee (principal)
CPT/HCPCS: 97016; 97110; 97140; 97161

== ENCOUNTER → 2023-11-28 | Outpatient (CLI) | payer BC, SELFPAY | END | disposition home or self-care (01) | LOC: PSN 12:55 | PROVIDERS: PCP Internal Medicine; Referring Provider Internal Medicine; Visit Provider Internal Medicine | DX: R94.2 Abnormal results of pulmonary function studies (principal) | CPT/HCPCS: 94060; 94726; 94729 ==

== ENCOUNTER 2023-12-30 09:51 | Day surgery (SDC) | payer BC, SELFPAY ==
[2023-12-30] VITALS (9 sets, daily range): BP systolic 106–150; BP diastolic 66–88; PULSE 62–73; RESP 14–16; TEMP 36.1–36.6; O2SAT 98–100; BMI 24.4
[2023-12-30] MEDS: Lactated Ringers 1,000 ML 15 ML IV (10:22)
--- NOTE | 2023-12-30 10:41 | HP.PCM_ITS ---
History and Physical Date of Admission: 12/30/23 Intake Vital Signs 11/20/2409:13 12/25/2407:59 Height 6 ft 1 in 6 ft 1 in Weight: 189 lb BMI 24.9 BP 126/75 H Blood Pressure Location Rt brachial Position Sitting Respiration 17 Pulse 68 Pulse Source Monitor Temp 97.6 F L Temp Source Temporal Pulse Oximetry (%) 99 Oxygen Delivery Method room air Intake Visit Reasons: LOWER ESOPHAGEAL RING Chief Complaint: lower esophageal ring Is patient in pain?: No Allergies No Known Allergies Allergy (Verified 12/25/23 09:00) Medications ?Medication ?Instructions ?Recorded ?Confirmed ?Type finasteride 1 mg tablet 1 mg PO DAILY 08/03/19 12/25/23 History insulin aspart U-100 100 unit/mL See Protocol SQ DAILY 08/03/19 12/25/23 History (3 mL) subcutaneous pen (Novolog FlexPen U-100 Insulin aspart) levothyroxine 175 mcg tablet 175 mcg PO DAILY 08/03/19 12/25/23 History lisinopril 2.5 mg tablet 2.5 mg PO DAILY 08/03/19 12/25/23 History omeprazole 20 mg tablet,delayed 20 mg PO DAILY 08/03/19 12/25/23 History release aspirin 81 mg tablet,delayed 81 mg PO DAILY 05/15/21 12/25/23 History release (Adult Aspirin Regimen) tadalafil 5 mg tablet 0.5 tab PO DAILY 01/07/22 12/25/23 History naproxen sodium 220 mg tablet 660 mg PO BID PRN Pain 03/24/22 12/25/23 History (Aleve) evolocumab 140 mg/mL subcutaneous 140 mg subcut Q2W 12/25/23 12/25/23 History pen injector (Repatha SureClick) insulin glargine 100 unit/mL 15 unit subcut QAM 12/25/23 12/25/23 History subcutaneous solution (Lantus U-100 Insulin) [facility] Medical History History of steroid therapy Thyroid disease Insulin dependent diabetes mellitus Diabetes Arthritis Kidney stones High cholesterol Back pain Gastric reflux Non-smoker History of pain when walking History of stress test Cardiology follow-up encounter Vitamin D deficiency Ulnar neuropathy PVD (peripheral vascular disease) Mouth ulcers Diarrhea, secretory Hair loss Osteoarthritis Lumbar radiculopathy Bilateral foot pain Erectile dysfunction Odynophagia Change in bowel habits Polyuria Family history of malignant neoplasm of digestive organs Atherosclerotic heart disease of [place] coronary artery without angina pectoris Abnormal cardiovascular stress test Elevated coronary artery calcium score BPH (benign prostatic hyperplasia) Essential hypertension Schatzki's ring Hypercholesterolemia Coronary artery disease Food impaction of esophagus Surgical History Hx of knee surgery History of colonoscopy History of left heart catheterization (05/18/21) History of esophagogastroduodenoscopy (EGD) (08/2019) Family History (Updated 12/25/23 @ 08:59 by Nusrat Maloney) Father Colon cancerBrother Thyroid disorder DiabetesMother Hypertension CVA (cerebral vascular accident) Social History household members: spouse Smoking Status: Never smoker alcohol intake: current substance use type: does not use HPI HPI HPI: Patient is a 58-year-old male here with dysphagia. He says something got stuck this week. He saw me back about 3 years ago when he had food stuck and I was able to remove the food bolus and the next week I brought him back and did a dilation up to 20 mm. Patient has been doing good until last few months and started having dysphagia again. He reports still taking his PPI. ROS General General: Yes weight change; No appetite, fatigue, colon cancer, breast cancer or weakness HEENT HEENT: Yes difficulty swallowing; No eye injury, eye surgery, swollen glands or hoarseness Endo Endocrine: Yes thyroid disease and diabetes mellitus; No thyroid cancer, Hair loss, heat intolerance or cold intolerance Skin Skin: No rash or changing moles Musc Musculoskeletal: Yes back problems and arthritis; No rheumatoid arthritis, gout or joint pain Cardio Cardiovascular: Yes heart disease and high blood pressure; No murmur, pacemaker, atrial fibrillation, heart attack, heart stent, palpitations, shortness of breat with exertion or chest pain Psych Psychiatric: No depression, anxiety or hearing voices Resp Respiratory: No shortness of breath, No sleep apnea, No cough, No COPD, No asthma, No emphysema and No wheezing Gastro Gastrointestinal: No abdominal pain, No nausea or vomiting, No diarrhea, No constipation, No blood in stool, Yes acid reflux, No hemorrhoids, No ulcers, No gallbladder problem and No black,tarry stools Benjie Hematologic: No blood thinners, No blood disorders, No bleeding, No anemia and No blood clots Neuro Neurologic: No system reviewed and no additional complaints, except as do cumented, No as per HPI, No abnormal gait, No abnormal hearing, No abnormal movements, No abnormal speech, No behavioral changes, No burning sensations, No confusion, No convulsions, No disequilibrium, No dizziness, No localized weakness, No frequent falls, No headache(s), No lack of coordination, No loss of vision, No memory loss, No numbness, No other visual disturbances, No radicular pain, No restless legs, No sensory deficit, No syncope, No tingling, No tremor(s), No weakness and No other Exam Const General: cooperative Orientation: alert and oriented x3 HENMT Head: normal to inspection Neck Neck: normal visual inspection and full ROM Chest Chest palpation & inspection: normal inspection of the chest Resp Effort & Inspection: normal respiratory effort Auscultation: clear to auscultation bilaterally Cardio Rate: regular rate Rhythm: regular rhythm GI Inspection: non-distended Palpation: soft and nontender Skin General: no rashes or lesions noted Neuro General: patient alert and patient oriented x3 Extrem General: full ROM Psych Appearance: grossly normal Mental Status: mental status grossly normal Assessment and Plan Assessment and Plan (1) Dysphagia: Status: Acute Qualifiers: Dysphagia type: esophageal phase Qualified Code(s): R13.19 - Other dysphagia Plan: the patient is having esophageal dysphagia. He had EGD with dilation about 4 years ago. Recommend repeat EGD with dilation. I explained endoscopy in detail to the patient. I explained the risks including but not limited to stroke or heart attack with anesthesia, perforation of the GI tract, bleeding, infection. I explained that any of these could necessitate further emergency surgery. The patient understands and all questions were answered sufficiently. The patient wishes to proceed with procedure. Patient will hold his aspirin for 5 days prior to the procedure. Jai Shepard MD Pager: [facility] [address] [place] [address], [address] [place] [address] Office: I have examined the patient and the H&P has been reviewed. There are no clinical changes since date of exam.
[2023-12-30 11:01] LABS: Bedside Glucose 215 mg/dL (74-106)
--- NOTE | 2023-12-30 11:01 | PRE.ANES_ITS ---
ASA Classification* ASA Classification ASA Classification: 2 Assessment & Plan Anesthesia* Anesthesia Assessment Anesthesia Assessment: Discussed sedation and/or anesthesia options, risks, benefits, and alternatives with patient/parents/legal guardian/POA. Questions invited. The patient/parents/legal guardian/POA seems to understand and agrees to proceed with anesthesia plan. Reviewed the physical assessment, medical history, allergy history and patient home medications list prior to surgery/procedure/anesthetic and documented any changes. Performed airway and anesthesia risk assessments. Anesthesia Type Anesthesia Type: MAC History Source History Obtained from:: Patient and Chart Anesthesia Focused Assessment* Temperature: 97.8 F Pulse Rate: 73 Blood Pressure: 150/88 Respiratory Rate: 16 Pulse Ox: 99 Oxygen Delivery Method: Room Air Airway Assessment Mouth opens: >3 cm Mallampati Score: I Teeth Condition: Intact Neck Range of motion (ROM): Full ROM Focused Labs Anesthesia Preop lab: CBC WBC 8.6 K/mm3 (4.4-11.0) 06/03/23 14:08 RBC 3.69 M/mm3 (4.6-6.2) L 06/03/23 14:08 Hgb 10.5 g/dL (13.0-16.5) L 06/03/23 14:08 Hct 33.0 % (40-54) L 06/03/23 14:08 Plt Count 358 K/mm3 (150-450) 06/03/23 14:08 CHEMISTRY Potassium 4.3 mmol/L (3.5-5.1) 06/03/23 14:08 Sodium 136 mmol/L (136-145) 06/03/23 14:08 Magnesium 1.9 mg/dL (1.6-2.6) 08/25/19 08:00 Phosphorus 2.5 mg/dL (2.5-4.9) 08/25/19 08:00 BUN 19 mg/dL (7-18) H 06/03/23 14:08 Creatinine 1.05 mg/dL (0.70-1.30) 06/03/23 14:08 Glucose 139 mg/dL (74-106) H 06/03/23 14:08 POC Glucose 150 mg/dL (70-110) H 08/25/19 07:39 TSH 0.60 uIU/mL (0.358-3.74) 09/17/22 10:15 COAG PT 13.9 SECONDS (11.7-14.9) 03/24/22 08:55 Pre-Assessment Diagnosis/Proposed Procedure Planned Operative Procedure(s): EGD WITH DILATION Anesthesia History Anesthesia History - improvement coordinator: Anesthesia History - improvement coordinator Hx Hospitalization No 12/26/23 09:23 Any Problems With Anesthesia No 12/26/23 09:23 Cholinesterase deficiency No 12/26/23 09:23 You/Your Family Experience No 12/26/23 09:23 fever (hyperthermia) with Relationship Recent Exposure to Contagious No 12/30/23 10:22 Disease Does patient have nerve No 12/26/23 09:23 stimulator Patient instructed to have device shut off --Does patient have Pacemaker No 12/30/23 10:22 or ICD? When Was Last Pacemaker Check QUESTION #4 FULL TEXT: You/Your Family Experience fever (hyperthermia) with Anesthesia Last Oral Intake Last Oral intake: Last Oral Intake NPO since 22:00 12/30/23 10:22 Meds taken in AM with sips of Yes 12/30/23 10:22 water? Meds patient instructed to lisinopril, omeprazole 12/30/23 10:22 take am of surgery PONV PONV - improvement coordinator: PONV - improvement coordinator Female No 12/26/23 09:23 HX of Motion Sickness Yes 12/26/23 09:23 HX of N/V After Surgery No 12/26/23 09:23 Non-Smoker Yes 12/26/23 09:23 Duration of Surgery greater No 12/26/23 09:23 than 60 minutes Number of Risk Factors 2 12/26/23 09:23 PONV Score Moderate Risk 12/26/23 09:23 Height & Weight Height & Weight: Anesthesia: Height & Weight Height 6 ft 1 in 12/30/23 10:22 Weight: 84 kg 12/30/23 10:22 Body Mass Index (BMI) 24.4 12/30/23 10:22 Respiratory Assessment Respiratory Assessment - improvement coordinator: Respiratory Tract Infection Hx - improvement coordinator Hx Respiratory Tract Infection No 12/26/23 09:23 STOP Sleep Apnea STOP Sleep Apnea - improvement coordinator: STOP Sleep Apnea - improvement coordinator Hx Hypertension Yes: CONTROLLED WITH MED 12/26/23 09:23 Hx Sleep Apnea No 12/26/23 09:23 CPAP No 12/26/23 09:23 BIPAP Do you snore loudly (louder No 12/26/23 09:23 than talking or can be heard Do you often feel tired/ No 12/26/23 09:23 fatigued/ sleepy during daytime? Has anyone observed you stop No 12/26/23 09:23 breathing during sleep? STOP Results Negative 12/26/23 09:23 QUESTION #5 FULL TEXT : Do you snore loudly (louder than talking or can be heard through closed doors)? Tobacco Use History Tobacco Use History - improvement coordinator: Tobacco Use History - improvement coordinator Tobacco Use Smoking Status Never smoker 12/26/23 09:23 Hx Tobacco Use No 12/26/23 09:23 Years Smoking Packs Smoked per Day Smoking Cessation Date was within the last 15 years Hx Smoking Cessation Date Hx Smoking Cessation Counseling Hematologic Medial History Hematologic Hx - improvement coordinator: Hematologic Medical Hx - training program assistant Hx of Blood Transfusion No 12/26/23 09:23 Hx of Transfusion in last 3 No 12/26/23 09:23 Months Date of Last Transfusion (if within last 3 months) Ever experience any problems No 12/26/23 09:23 with transfusion(s)? Specify any problems Hx of Preganancy in last 3 N/A 12/26/23 09:23 Months Nurse Filling Out Transfusion DSCHRIBER 12/26/23 09:23 & Questions: Date: 12/26/23 12/26/23 09:23 Time: 09:25 12/26/23 09:23 Patient unable to answer at this time (ie. confused, unrespo /Reproduction History /Reproductive History - improvement coordinator: /Reproductive Hx- improvement coordinator Hx Now No 12/26/23 09:23 Gestational Age (in weeks): EDC: Hx Hx Para Hx Section SAB No 12/26/23 09:23 Active Medications Active Medications: Current Medications Generic Name Dose Route Start Last Admin Trade Name Freq PRN Reason Stop Dose Admin Lactated Ringer's 1,000 mls @ 15 mls/hr 12/30/23 10:00 12/30/23 10:22 IV 15 mls/hr .Q48H BLAKE Administration PFSH Medical History Back pain Difficulty swallowing Leg cramps History of edema MVP (mitral valve prolapse) Thyroid disease Insulin dependent diabetes mellitus Arthritis High cholesterol Gastric reflux Non-smoker History of stress test Cardiology follow-up encounter Vitamin D deficiency PVD (peripheral vascular disease) Osteoarthritis Erectile dysfunction Polyuria Family history of malignant neoplasm of digestive organs Atherosclerotic heart disease of [place] coronary artery without angina pectoris Abnormal cardiovascular stress test Elevated coronary artery calcium score BPH (benign prostatic hyperplasia) Essential hypertension Schatzki's ring Hypercholesterolemia Coronary artery disease Food impaction of esophagus Home Medications ?Medication ?Instructions ?Recorded ?Last Taken ?Type finasteride 1 mg tablet 1 mg PO DAILY 08/03/19 05/18/21 History insulin aspart U-100 100 unit/mL 1 sliding scale dose subcut DAILY 08/03/19 1 Day Ago History (3 mL) subcutaneous pen (Novolog ~04/21/21 FlexPen U-100 Insulin aspart) levothyroxine 175 mcg tablet 175 mcg PO DAILY 08/03/19 05/18/21 History lisinopril 2.5 mg tablet 2.5 mg PO DAILY 08/03/19 12/30/23 History omeprazole 20 mg tablet,delayed 20 mg PO DAILY 08/03/19 12/30/23 History release aspirin 81 mg tablet,delayed 81 mg PO DAILY 05/15/21 12/25/23 History release (Adult Aspirin Regimen) tadalafil 5 mg tablet 0.5 tab PO DAILY 01/07/22 Unknown History naproxen sodium 220 mg tablet 660 mg PO BID PRN Pain 03/24/22 Unknown History (Aleve) evolocumab 140 mg/mL subcutaneous 140 mg subcut Q2W 12/25/23 Unknown History pen injector (Repatha SureClick) insulin glargine 100 unit/mL 15 unit subcut QAM 12/25/23 Unknown History subcutaneous solution (Lantus U-100 Insulin) Allergy/AdvReac Type Severity Reaction Status Date / Time No Known Allergies Allergy Verified 12/30/23 10:19 Family History Father Colon cancer Brother Thyroid disorder Diabetes Mother Hypertension CVA (cerebral vascular accident) Surgical History Hx of total knee replacement History of lumbar fusion Hx of knee surgery History of colonoscopy History of left heart catheterization (05/18/21) History of esophagogastroduodenoscopy (EGD) (08/2019) Social History household members: spouse Smoking Status: Never smoker alcohol intake: current substance use type: does not use Review of Systems (Anesthesia) ROS Narrative System reviewed and no additional complaints, except as documented.
--- NOTE | 2023-12-30 11:18 | PCM.POST.ANE ---
Anesthesia: Postop Eval I Current Vital Signs Temperature: 97 F Pulse Rate: 67 Blood Pressure: 108/81 Respiratory Rate: 16 Pulse Ox: 98 Oxygen Delivery Method: Room Air Assessment Airway patent: Yes Spontaneous unlabored respirations: Yes Mental status: Calm and Asleep nausea: No Vomiting: No Anesthesia Complication: No Fluid Hydration Crystalloid volume administer (ml): 600 Total IV fluid infused: 600 Progress Note Anesthesia document: Postop Eval 1 completed: Yes
--- NOTE | 2023-12-30 11:23 | OP.EGD_ITS ---
Patient Name: Kashmir Price Procedure Date: 12/30/2023 11:05 AM Date of : 1965 Age: 58 Procedure: Upper GI endoscopy Indications: Dysphagia Providers: Jai Shepard MD Medicines: Propofol per Anesthesia Patient Profile: This is a 58 year old male. Refer to note in patient chart for documentation of history and physical. Complications: No immediate complications. Estimated blood loss: Minimal. Procedure: Pre-Anesthesia Assessment: - Prior to the procedure, a History and Physical was performed, and patient medications and allergies were reviewed. The patient's tolerance of previous anesthesia was also reviewed. The risks and benefits of the procedure and the sedation options and risks were discussed with the patient. All questions were answered, and informed consent was obtained. Prior Anticoagulants: The patient has taken no anticoagulant or antiplatelet agents. After reviewing the risks and benefits, the patient was deemed in satisfactory condition to undergo the procedure. After obtaining informed consent, the endoscope was passed under direct vision. Throughout the procedure, the patient's blood pressure, pulse, and oxygen saturations were monitored continuously. The Endoscope was introduced through the mouth, and advanced to the third part of duodenum. The upper GI endoscopy was accomplished without difficulty. The patient tolerated the procedure well. Scope In: 11:12:50 AM Scope Out: 11:18:11 AM Total Procedure Duration Time 0 hours 5 minutes 21 seconds Findings: One benign-appearing, intrinsic moderate (circumferential scarring or stenosis; an endoscope may pass) stenosis was found at the gastroesophageal junction. This stenosis measured less than one cm (in length). The stenosis was traversed. A TTS dilator was passed through the scope. Dilation with a 15-16.5-18 mm balloon dilator was performed to 18 mm. The dilation site was examined following endoscope reinsertion and showed moderate improvement in luminal narrowing. Estimated blood loss was minimal. The stomach was normal. The examined duodenum was normal. Impression: - Benign-appearing esophageal stenosis. Dilated. - Normal stomach. - Normal examined duodenum. - No specimens collected. Recommendation: - Discharge patient to home. - Continue present medications. - Soft diet for 2 days. - Resume aspirin at prior dose tomorrow. Procedure Code(s): --- Professional --- 82211, Esophagogastroduodenoscopy, flexible, transoral; with transendoscopic balloon dilation of esophagus (less than 30 mm diameter) Diagnosis Code(s): --- Professional --- K22.2, Esophageal obstruction R13.10, Dysphagia, unspecified CPT copyright 2021 [employer]. All rights reserved. The codes documented in this report are preliminary and upon security operations specialist review may be revised to meet current compliance requirements. Jai Shepard MD 12/30/2023 11:23:06 AM This report has been signed electronically. Number of Addenda: 0 Note Initiated On: 12/30/2023 11:05 AM
--- NOTE | 2023-12-30 11:23 | OP.CCLET_ITS ---
12/30/2023 Lina José Re : Upper GI endoscopy procedure for Kashmir Kumar This procedure was performed on Saturday, December 30, 2023. My impressions and recommendations are as follows: Impressions : - Benign-appearing esophageal stenosis. Dilated. - Normal stomach. - Normal examined duodenum. - No specimens collected. Recommendations : - Discharge patient to home. - Continue present medications. - Soft diet for 2 days. - Resume aspirin at prior dose tomorrow. My findings are described in the full procedure note, which is enclosed. If I can be of further assistance, please feel free to contact me at Doctor phone number(s): , Work: . Sincerely, Jai Shepard MD 12/30/2023 11:23:06 AM This report has been signed electronically.
--- NOTE | 2023-12-30 12:48 | POSTOPAN2_ITS ---
Anesthesia Postop Eval I Sum Postop Eval Completion status Anesthesia document: Postop Eval 1 completed: Yes Anesthesia Postop Eval I Summary Anesthesia Postop Eval I Summary: Anesthesia Postop Eval I: Assessment Summary Airway patent Yes 12/30/23 11:24 [email or web address] Spontaneous unlabored Yes 12/30/23 11:24 [email or web address] respirations Mental status Calm,Asleep 12/30/23 11:24 FRONT [email or web address] nausea No 12/30/23 11:24 FRONT [email or web address] Vomiting No 12/30/23 11:24 [email or web address] [email or web address] Anesthesia Postop Eval I: Fluid Summary Crystalloid volume administer 600 12/30/23 11:24 FRONT [email or web address] (ml) Colloids volume administered ( ml) Blood Product volume administered (ml) Total IV fluid infused 600 12/30/23 11:24 [email or web address] [email or web address] Anesthesia Postop Eval I: Summary Notes Anesthesia Complication No 12/30/23 11:24 FRONT [email or web address] Anesthesia Complication Comment: Post-operative progress note Anesthesia: Postop Eval II Evaluation Mental status: Awake and Calm Pain Level: 0 nausea: No Vomiting: No Complications Anesthesia Complication: No
--- NOTE | 2023-12-30 12:48 | PCM.POSTANE2 ---
Anesthesia Postop Eval I Sum Postop Eval Completion status Anesthesia document: Postop Eval 1 completed: Yes Anesthesia Postop Eval I Summary Anesthesia Postop Eval I Summary: Anesthesia Postop Eval I: Assessment Summary Airway patent Yes 12/30/23 11:24 [email or web address] [email or web address] Spontaneous unlabored Yes 12/30/23 11:24 TELEPHONE [email or web address] respirations Mental status Calm,Asleep 12/30/23 11:24 TELEPHONE [email or web address] nausea No 12/30/23 11:24 TELEPHONE [email or web address] Vomiting No 12/30/23 11:24 TELEPHONE [email or web address] Anesthesia Postop Eval I: Fluid Summary Crystalloid volume administer 600 12/30/23 11:24 TELEPHONE [email or web address] (ml) Colloids volume administered ( ml) Blood Product volume administered (ml) Total IV fluid infused 600 12/30/23 11:24 TELEPHONE [email or web address] Anesthesia Postop Eval I: Summary Notes Anesthesia Complication No 12/30/23 11:24 TELEPHONE [email or web address] Anesthesia Complication Comment: Post-operative progress note Anesthesia: Postop Eval II Evaluation Mental status: Awake and Calm Pain Level: 0 nausea: No Vomiting: No Complications Anesthesia Complication: No
== END 2023-12-30 11:56 | disposition home or self-care (01) ==
LOC: EN 09:52 → AC 09:53
PROVIDERS: PCP Internal Medicine; Referring Provider Internal Medicine; Visit Provider Surgery
PROC: 0DJ08ZZ Inspection of Upper Intestinal Tract, Via Natural or Artificial Opening Endoscopic (ICD-10-PCS; CPT 43235; principal; 2023-12-30 11:25)
DX: K22.2 Esophageal obstruction (principal); Z79.4 Long term (current) use of insulin; E11.9 Type 2 diabetes mellitus without complications; E78.00 Pure hypercholesterolemia, unspecified; K21.9 Gastro-esophageal reflux disease without esophagitis; I25.119 Atherosclerotic heart disease of native coronary artery with unspecified angina pectoris; I10 Essential (primary) hypertension; E03.9 Hypothyroidism, unspecified; Z79.899 Other long term (current) drug therapy; Z79.890 Hormone replacement therapy; Z79.82 Long term (current) use of aspirin
CPT/HCPCS: 43249; 82962; J7120

== ENCOUNTER → 2024-04-09 | Outpatient (CLI) | payer BC, SELFPAY ==
--- NOTE | 2024-04-09 08:59 | RAD_ITS ---
STUDY: X-RAY - ESOPHAGUS (BARIUM SWALLOW) WITH FLUOROSCOPY REASON FOR EXAM: Male, 58 years old. DYSPHAGIA TECHNIQUE: 54 fluoroscopic view(s) of the esophagus were obtained following swallowing of barium. FLUOROSCOPY TIME (if supplied): (49 seconds) minutes/seconds. 8 mGy. COMPARISON: Comparison is made with prior study dated October 25, 2017. FINDINGS: There is no demonstrated esophageal foreign body. There is no demonstrated stricture or mucosal abnormality. Small hiatal hernia without gastric esophageal reflux. Minimal web formation at the gastroesophageal junction. The patient ingested a 12 mm tablet of barium without any difficulty. Normal visualized aortic arch and descending thoracic aorta. Normal visualized pulmonary parenchyma. Prior fusion at the L4-L5 level. RAD/Esophagus Single Contrast IMPRESSION: Small sliding hernia without gastroesophageal reflux. Small weblike narrowing at the gastroesophageal junction. The patient ingested a 12 mm tablet of barium without any difficulty. Electronically Signed: Christiano Montoya MD at 11:19 EDT ,
== END | disposition home or self-care (01) ==
PROVIDERS: PCP Internal Medicine; Referring Provider Internal Medicine Gastroenterology; Visit Provider Internal Medicine Gastroenterology
DX: R13.10 Dysphagia, unspecified (principal)
CPT/HCPCS: 74220

== ENCOUNTER 2024-05-21 12:00 | Outpatient (RCR) | payer BC, SELFPAY ==
--- NOTE | 2024-04-28 10:37 | HP.PTEVAL ---
Patient's Visit Information Visit Information Visit Information: DARRIUS PARKER is a 58 year old M referred to Physical Therapy by Melva Omer PA-C with a diagnosis of DDD LUMBAR. Date of Evaluation: 04/28/24 Physical Therapist: Jose Ortiz, PT, Cert MDT, OCS Visit Plan Frequency: 2x /Week Duration: 6 Months Plan: PT INTERVENTIONS DLS ,POSTURAL EX'S ,LE FLEXABILITY AND MODALITIES PRN Subjective Subjective: This 58 y/o male presents to physical therapy with lumbar pain. Patient has h/o lumbar fusion September 2022 due to severe stenosis. But had episode therapy with knee surgery and doing a exercises prone stretching caused pain in back last 2022. Lumbar pain worse in symmetrical lumbar seen PA at [facility] ,did prednisone pack 1 week otherwise Celebrex. Did x-rays but will f/u DR Pineda possible MRI . Aggravating sitting ,extending ,twisting.. Alleviating walking ,heat. Coughing/sneezing +. Bowel/bladder -. Constant ache. Patient sleeping okay. Patient condition affects QOL and function housework tasks. Patient plans to get orthotics SOCAIL: Pain Bilateral Back: Pain Intensity (Out of 10): 6 Pain Intensity Range: 10 Objective Objective: POSTURE: mild forward posture PALAPTION: tender erectors spinals NEURO: denies paresthesia/tingling ,reflexes L3-L4 ,L4-L5,L5-S1 2/3 GAIT: ambulates with reciprocal pattern MMT: quads/hams 5/5 ,hip flexion 4/5 ,ankle 5/5 LUMBAR ROM: flexion min loss ,extension severe loss ,side glides mod loss FLEXABILITY: hamstrings mins Special Tests L/S Slump test left side: Negative L/S Slump test right side: Negative L/S Left Straight Leg Raise: Negative L/S Right Straight Leg Raise: Negative Lumbar Standing: Flexion - Mechanical Response: No effect Lumbar Standing: Flexion - Symptoms During Testing: No effect Lumbar Standing: Flexion - Symptoms After Testing: No effect Lumbar Standing: Extension - Mechanical Response: No effect Lumbar Standing: Extension - Symptoms During Testing: Increases Lumbar Standing: Extension - Symptoms After Testing: No worse Lumbar Standing: Right Side Glides - Mechanical Response: No effect Lumbar Standing: Right Side [place] - Symptoms During Testing: No effect Lumbar Standing: Right Side [place] - Symptoms After Testing: No effect Lumbar Standing: Left Side [place] - Mechanical Response: No effect Lumbar Standing: Left Side [place] - Symptoms During Testing: No effect Lumbar Standing: Left Side [place] - Symptoms After Testing: No effect Balance/Special Test Scores Oswestry Low Back Score: 14 Goals Goal 1:: Patient is I with HEP for back Goal Time Frame: 4-6 Weeks Goal 2:: Patient to improve lumbar ROM for function of recovery for ADL and proper lifting. Goal Time Frame: 4-6 Weeks Goal 3:: Patient to improve back oswestry score by 5 points to improve QOL and function Goal Time Frame: 4-6 Weeks Goal 4:: PT to decrease lumbar by 50% to improve function with less pain Goal Time Frame: 4-6 Weeks Rehabilitation Potential Physical Therapy Diagnosis: This patient has lumbar pain with h/o lumbar fusion September 2022 with pain with position and motion testing worse with extension better with flexion benefit from skilled PT Rehabilitation Potential: Good Anticipated Interventions Patient/Client Instruction: Educate patient on: Condition and Plan of Care For the Purpose of:: To decrease pain, To increase ROM, To improve muscle performance and motor function, To improve ability to perform ADL's, To increase tolerance to activity/condition/position, To improve ability of physical actions for home/community/work/leisure, To decrease soft tissue restriction, To increase flexibility/ROM and To improve tolerance to ADL's Therapeutic Exercise to Include: Strength training, Postural training, Flexibilty training and Dynamic Lumbar Stabilization For the Purpose of:: To decrease pain, To increase ROM, To improve muscle performance and motor function, To increase tolerance to activity/condition/position, To improve ability of physical actions for home/community/work/leisure, To improve health of tissue, To decrease soft tissue restriction, To increase flexibility/ROM, To reduce risk of recurrence and To improve tolerance to ADL's TENS: Yes IF ES: Yes Cryotherapy (ice pack, ice massage): Yes Thermo therapy (hot pack): Yes Ultrasound (thermal/non thermal): Yes For the Purpose of:: To decrease swelling/inflammation, To improve nutrient delivery to tissue, To increase oxygenation perfusion, To improve muscle performance and motor function, To improve health of tissue and To decrease soft tissue restriction Text: Thank you for the opportunity to evaluate your patient. For Medicare and Medicare HMO plans, please review the plan of care and approve it. It will need to be FAXED BACK to us at [phone] for Medicare purposes. For Medicare only, by signing this I certify the plan of care. Please let me know if there are questions or concerns regarding this plan of care. Physician Signature: Date:
--- NOTE | 2024-05-28 11:55 | HP.PTDCSUM ---
Discharge Summary D/C summary: It has been my pleasure to treat DARRIUS PARKER referred by Melva Omer PA-C, with the diagnosis of DDD LUMBAR for a total of 6 visit(s). Discharge Date: Please see the following information for a summary of their discharge status. Subjective Subjective: Patient back is about same Pain Bilateral Back: Pain Intensity (Out of 10): 5 Overall Improvement % Improvement: 40 Objective Objective/Function: OSTURE: mild forward posture PALAPTION: tender erectors spinals NEURO: denies paresthesia/tingling ,reflexes L3-L4 ,L4-L5,L5-S1 2/3 GAIT: ambulates with reciprocal pattern MMT: quads/hams 5/5 ,hip flexion 4/5 ,ankle 5/5 LUMBAR ROM: flexion WFL ,extension MOD/severe loss ,side glides MIN/mod loss FLEXABILITY: hamstrings mins Goals Goal 1:: Patient is I with HEP for back Goal 2:: Patient to improve lumbar ROM for function of recovery for ADL and proper lifting. Goal 3:: Patient to improve back oswestry score by 5 points to improve QOL and function Goal 4:: PT to decrease lumbar by 50% to improve function with less pain Plan Plan: RTD recommend MRI D/C Information d/c sentence: If there are questions or concerns regarding this patient's physical therapy, please feel free to call me at [phone]. Thank you for the referral of this patient. Sincerely, Jose Ortiz, PT, Cert MDT, OCS Balance/Gait/Functional tests Balance/Special Test Scores Oswestry Low Back Score: 14 Improvement % Improvement: 40
== END 2024-05-21 19:00 | disposition home or self-care (01) ==
LOC: PT 12:00
PROVIDERS: PCP Internal Medicine; Referring Provider Physician Assistant; Visit Provider Physician Assistant
DX: M51.369 Other intervertebral disc degeneration, lumbar region without mention of lumbar back pain or lower extremity pain (principal)
CPT/HCPCS: 97110; 97162; 97530

== ENCOUNTER → 2024-06-15 | Outpatient (CLI) | payer BC, SELFPAY ==
--- NOTE | 2024-06-15 08:17 | MRI_ITS ---
STUDY: MRI LUMBAR SPINE WITH AND WITHOUT CONTRAST REASON FOR EXAM: Male, 59 years old. DDD TECHNIQUE: Standardized fat and water weighted pulse sequences were obtained in the sagittal and axial planes. IV 17ml clariscan was administered for the contrast portion of the examination. COMPARISON: 09/26/2021 FINDINGS: T12-L1: Normal endplates. Normal disc height, hydration and morphology. Normal bilateral facet joints. Normal central canal and bilateral lateral recesses. Normal bilateral intervertebral neural foramina. Normal lumbar lordosis. There is no substantial scoliosis. Normal conus medullaris that terminates at the L1/L2. L1-2: Normal endplates. Normal disc height, hydration and morphology. Normal bilateral facet joints. Normal central canal and bilateral lateral recesses. Normal bilateral intervertebral neural foramina. L2-3: Mild bilobed disc protrusion produces mild spinal stenosis and mild bilateral neural foraminal stenosis. L3-4: Mild bilateral facet hypertrophy and moderate ligament flavum hypertrophy. Interval involvement of a large bilobed disc protrusion with an large inferiorly extending right paracentral disc extrusion produces severe spinal stenosis and severe right lateral recess stenosis with effacement of the right L4 nerve root. L4-5: Status post posterior decompression and transpedicular fixation with 2 mm of anterolisthesis of L4 on L5 with no spinal stenosis and mild bilateral neural foraminal stenosis. L5-S1: Normal endplates. Normal disc height, hydration and morphology. Normal bilateral facet joints. Normal central canal and bilateral lateral recesses. Normal bilateral intervertebral neural foramina. Normal visualized sacral ala. Normal visualized paraspinous soft tissue structures. MRI/Spine Lumbar W/WO Contrast IMPRESSION: Interval posterior decompression and transpedicular fixation at L4/L5 with interval development of a large disc protrusion and inferiorly extending right paracentral disc extrusion at L3/L4 producing severe spinal stenosis and severe right lateral recess stenosis. Electronically Signed: Tee Vargas MD at 20:08 EST ,
[2024-06-15 08:57] LABS: CREATININE FINGERSTICK < 1.0 mg/dL (0.70-1.30); EGFR FINGERSTICK > 60.0000 mL/min (>60)
== END | disposition home or self-care (01) ==
LOC: MRI 08:03
PROVIDERS: PCP Internal Medicine; Referring Provider Physician Assistant; Visit Provider Physician Assistant
DX: M51.369 Other intervertebral disc degeneration, lumbar region without mention of lumbar back pain or lower extremity pain (principal)
CPT/HCPCS: 72158; A9575

== ENCOUNTER → 2025-03-15 | Outpatient (CLI) | payer BC, SELFPAY ==
[2025-03-15 10:58] LABS: Hematocrit 44.1 % (40-54); Hemoglobin 15.1 g/dL (13.0-16.5); Mean Corp Hgb Conc 34.2 g/dL (32-36); Mean Corpuscular Volume 93.4 fL (80-94); Mean Platelet Vol. 10.2 fl (6.2-12.0); Platelet Count 362 K/mm3 (150-450); RBC Distribution Width CV 12.2 % (11.6-14.6); RBC Distribution Width SD 42.6 fl (35.1-43.9); Red Blood Count 4.72 M/mm3 (4.6-6.2); White Blood Count 4.0 K/mm3 (4.4-11.0)
[2025-03-15 11:16] LABS: D-Dimer Quantitative (DVT/PE) 1.22 FEU/ug/m (0.27-0.49)
[2025-03-15 11:36] LABS: AST(SGOT) 24 U/L (<=37); Alanine Aminotransfer ALT/SGPT 19 U/L (<=46); Albumin, Serum 4.0 g/dL (3.5-5.0); Alkaline Phosphatase 67 U/L (40-129); Anion Gap 11 (5-15); BUN 17 mg/dL (4-19); BUN/Creat Ratio 14.6 RATIO (10-20); Calcium,Total 9.7 mg/dL (7.6-11.0); Carbon Dioxide 25.6 mmol/L (21.0-32.0); Chloride 103 mmol/L (98-108); Globulin 2.5 g/dL (2.2-4.2); Glucose 130 mg/dL (70-99); Potassium 4.9 mmol/L (3.3-5.1); Troponin T High Sensitivity 15 ng/L (<=22); Vitamin B12 757 pg/mL (180-914)
[2025-03-15 11:40] LABS: CRP < 3.00 mg/L (0.0-3.0); Magnesium 1.8 mg/dL (1.5-2.2)
[2025-03-16 19:44] LABS: Immature Granulocytes Count 0.010 X10^3/uL (0.0-0.0); NRBC Flagged by Analyzer 0 % (0-5)
[2025-03-18 21:07] LABS: Methylmalonic Acid Bld 167 nmol/L (0-378)
== END | disposition home or self-care (01) ==
PROVIDERS: PCP Internal Medicine; Referring Provider Internal Medicine; Visit Provider Internal Medicine
DX: R07.9 Chest pain, unspecified (principal); R06.02 Shortness of breath; E03.9 Hypothyroidism, unspecified; R71.8 Other abnormality of red blood cells
CPT/HCPCS: 80053; 82607; 83735; 83921; 84402; 84439; 84443; 84484; 85025; 85027; 85379; 86140

== ENCOUNTER → 2025-03-15 | Outpatient (CLI) | payer BC, SELFPAY ==
--- NOTE | 2025-03-15 14:10 | CT_ITS ---
PROCEDURE: CTA CHEST W/WO CONTRAST 03/15/2025 REASON FOR EXAM: CTA CHEST PE PROTOCOL - STAT - ELEVATED DDIMER, CHEST PAIN, SOB TECHNIQUE: Procedure Code: [id number] Modality: CT Procedure: CTA CHEST W/WO CONTRAST Multiplanar Sagittal and Coronal images were obtained. 3D post processing was performed CONTRAST: Isovue 370 VOLUME: 100 mL One or more dose reduction techniques were used (e.g., Automated exposure control, adjustment of the mA and/or kV according to patient size, use of iterative reconstruction technique). RADIATION DOSE SUMMARY: CTDlvol: 20 mGy DLP: 415 mGycm COMPARISON: No prior CT. # of known CTs in the past 12 months: 0 # of known Cardiac Nuclear Medicine Studies in the past 12 months: 0 FINDINGS: Thyroid gland: Negative. Lungs: Mild emphysematous changes. No pulmonary nodules or masses. Pleura: Negative for pleural effusion or pneumothorax. Airways: Imaged bronchi and trachea negative. Mediastinum: Negative for mediastinal mass. Lymph nodes: Negative for axillary, mediastinal or hilar adenopathy. Heart and Vasculature: Pulmonary arteries well opacify with intravenous contrast. Negative for intraluminal thrombus. Heart normal size. Slight vascular calcifications of the thoracic aorta. Coronary Artery Calcifications: Severe vascular calcifications of the coronary arteries Upper Abdomen: Increased stool throughout the colon. Hardware: None. Bones: Age-appropriate degenerative changes of the thoracic spine. CT/CTA Chest W/WO Contrast IMPRESSION: Negative for pulmonary embolus. Mild emphysema. Reading Location: [place] [id number]
== END | disposition home or self-care (01) ==
PROVIDERS: PCP Internal Medicine; Referring Provider Internal Medicine; Visit Provider Internal Medicine
DX: R79.89 Other specified abnormal findings of blood chemistry (principal)
CPT/HCPCS: 71275; Q9967

== ENCOUNTER → 2025-03-18 | Outpatient (CLI) | payer BC, SELFPAY ==
--- NOTE | 2025-03-18 06:22 | ECHOD_ITS ---
Reason For Study Reason For Study: SOB Procedure This was a 2D Doppler, Color Flow transthoracic echocardiogram. Myocardial strain analysis was performed in this exam to aid in the assessment of cardiac function. Exam performed in department. Left Ventricle Normal LV size. The global longitudinal strain = -17.7 % (normal). The left ventricular ejection fraction is 55 %. No regional wall motion abnormalities noted. Right Ventricle Normal RV size. Normal systolic function. Atria Normal left atrium. Normal right atrium. Bubble contrast study is negative for PFO/ASD. Mitral Valve Normal mitral valve. Tricuspid Valve Normal tricuspid valve. Aortic Valve Normal aortic valve. Pulmonic Valve Normal pulmonic valve. Great Vessels Normal aortic root. The pulmonary artery is normal size. Inferior vena cava collapse with respiration. Pericardium/Pleural No pericardial effusion. Medication 22 gauge I.V. with prn adaptor inserted into right arm. Performed a rapid injection of agitated mix of 9 cc saline and 1cc air to assess for atrial septal defect. MMode/2D Measurements & Calculations LVIDd: 4.7 cm IVSd: 1.2 cm Ao root diam: 3.8 cm LVIDs: 3.1 cm LVPWd: 0.96 cm RVDd: 3.2 cm FS: 33.5 % LAV(MOD-bp): 40.5 ml LVAd ap4: 32.7 cm2 SV(MOD-sp4): 53.2 ml LAV(MOD-bp) Indexed: 19.7 ml/m2 LVLd ap4: 8.4 cm SI(MOD-sp4): 25.9 ml/m2 LAV(MOD-sp2): 44.6 ml EDV(MOD-sp4): 104.0 ml LAV(MOD-sp4): 32.5 ml EDV(sp4-el): 108.8 ml LVAs ap4: 20.8 cm2 LVLs ap4: 7.4 cm ESV(MOD-sp4): 50.8 ml ESV(sp4-el): 50.0 ml EF(MOD-sp4): 51.1 % EF(sp4-el): 54.1 % SV(sp4-el): 58.8 ml LA A4 area: 13.7 cm2 LA dimension(2D): 3.6 cm RA A4 area: 14.6 cm2 TAPSE: 2.0 cm Time Measurements MV dec time: 0.21 sec Doppler Measurements & Calculations MV E max mono: 83.4 cm/sec Lat Peak E' Mono: 9.6 cm/sec Med Peak E' Mono: 7.6 cm/sec MV A max mono: 76.8 cm/sec E/E' lat: 8.7 E/E' med: 11.0 MV E/A: 1.1 MV V2 max: 94.5 cm/sec MV P1/2t max mono: 92.9 cm/sec Ao V2 max: 122.5 cm/sec MV max P.6 mmHg MV P1/2t: 71.5 msec Ao max P.0 mmHg MV V2 mean: 56.2 cm/sec MV dec slope: 380.6 cm/sec2 Ao V2 mean: 85.7 cm/sec MV mean P.5 mmHg MVA(P1/2t): 3.1 cm2 Ao mean P.4 mmHg MV V2 VTI: 29.6 cm Ao V2 VTI: 27.5 cm AV (velocity ratio): 0.73 LV V1 max: 100.4 cm/sec PA V2 max: 112.0 cm/sec LV V1 max P.0 mmHg PA V2 mean: 78.8 cm/sec LV V1 mean P.0 mmHg LV V1 mean: 65.1 cm/sec LV V1 VTI: 20.0 cm ECHO/Echo Complete Interpretation Summary Normal LV size. The global longitudinal strain = -17.7 % (normal). The left ventricular ejection fraction is 55 %. Bubble contrast study is negative for PFO/ASD. Ordering Physician: Albert^Sandy^^^ Referring Physician: Sandy Price Performed By: Abel Mckeon RCS
--- NOTE | 2025-03-18 09:49 | STRESSREP ---
Stress Test Report Exercise myocardial perfusion stress test. 59-year-old man with a history of dyspnea on exertion and chest pain. Stress protocol: Resting EKG demonstrates normal sinus rhythm with a rate of 71 bpm resting blood pressure is 130/70 mmHg. The patient exercised according to the regular Kamran protocol for a total duration of 10 minutes attaining a maximum heart rate of 181 bpm which was 112% of maximum predicted heart rate; the maximum workload was 13.3 metabolic equivalents. At rest there were no ST or T wave changes noted to suggest ischemia and at peak exercise upsloping ST changes only were noted which did not meet the criteria for ischemia. No clinical angina was noted the test was terminated due to the target heart rate being achieved/fatigue. The peak blood pressure was 194/80 mmHg. Rate-pressure product was 30,400. Myocardial perfusion protocol. 11.9 mCi of technetium 99m sestamibi was injected at rest. The patient exercised according to regular Kamran protocol for total duration of 10 minutes and at peak exercise 36 mCi of technetium 99m sestamibi was injected stress images were obtained stress and rest images were reconstructed in comparing the short axis vertical long and horizontal long axis. Gated images were also obtained. Perfusion SPECT analysis: Review of the stress images demonstrate normal uptake of tracer noted in all areas of the myocardium. There is a very small portion of the apex with mildly reduced perfusion. The resting images similarly demonstrate normal uptake of tracer noted in all areas of the myocardium. Mild amount of apical ischemia cannot be completely excluded. Gated SPECT analysis: The gated ejection fraction is 67%. Conclusion: Mildly abnormal exercise myocardial perfusion stress test at a high workload with mild apical ischemia.
== END | disposition home or self-care (01) ==
PROVIDERS: PCP Internal Medicine; Referring Provider Internal Medicine; Visit Provider Internal Medicine
DX: R07.9 Chest pain, unspecified (principal); I25.10 Atherosclerotic heart disease of native coronary artery without angina pectoris; R06.02 Shortness of breath; R53.83 Other fatigue
CPT/HCPCS: 78452; 93017; 93306; A9500; A4216

== ENCOUNTER → 2025-05-18 | Outpatient (CLI) | payer BC, SELFPAY ==
[2025-05-18 17:38] LABS: Hematocrit 42.2 % (40-54); Hemoglobin 14.2 g/dL (13.0-16.5); Immature Granulocytes Count 0.030 X10^3/uL (0.0-0.0); Mean Corp Hgb Conc 33.6 g/dL (32-36); Mean Corpuscular Volume 90.6 fL (80-94); Mean Platelet Vol. 9.9 fl (6.2-12.0); NRBC Flagged by Analyzer 0 % (0-5); Platelet Count 317 K/mm3 (150-450); RBC Distribution Width CV 12.7 % (11.6-14.6); RBC Distribution Width SD 41.7 fl (35.1-43.9); Red Blood Count 4.66 M/mm3 (4.6-6.2); White Blood Count 7.2 K/mm3 (4.4-11.0)
[2025-05-18 18:11] LABS: Anion Gap 11 (5-15); BUN 18 mg/dL (4-19); BUN/Creat Ratio 15.7 RATIO (10-20); Calcium,Total 9.7 mg/dL (7.6-11.0); Carbon Dioxide 27.1 mmol/L (21.0-32.0); Chloride 98 mmol/L (98-108); Glucose 92 mg/dL (70-99); Potassium 3.9 mmol/L (3.3-5.1)
== END | disposition home or self-care (01) ==
LOC: CIMLAB 13:07
PROVIDERS: Internal Medicine Cardiovascular Disease; PCP Internal Medicine; Referring Provider Internal Medicine; Visit Provider Internal Medicine
DX: I25.10 Atherosclerotic heart disease of native coronary artery without angina pectoris (principal)
CPT/HCPCS: 36415; 80048; 85025

== ENCOUNTER 2025-05-21 08:26 | Day surgery (SDC) | payer BC, SELFPAY ==
[2025-05-20 07:11] VITALS: BMI 24.9
--- NOTE | 2025-05-21 11:46 | CL.D_ITS ---
Patient Name: DARRIUS PARKER Study Date: 05/21/2025 Performing: To Ranadll MD Ht: 73 inches 185.42 cm : 1965 Wt: 189 lbs 85.73 kg Age: 60 Gender: male BSA: 2.1 PROCEDURE(S) PERFORMED DC02-([id number])[facility] CLINICAL PROFILE AND INDICATIONS Indications: Stable Known CAD Heart Failure: None Stress/Imaging Date: 03/18/25 CAD Presentations: Symptom unlikely to be ischemic. CONCLUSIONS Diffuse coronary artery disease with predominant disease noted in the second obtuse marginal branch. The mid to distal LAD has mild diffuse tapering. These vessels in comparison to the previous cardiac catheterization from 2020 actually appear to be somewhat better. RECOMMENDATIONS Continue aggressive risk factor modification. DESCRIPTION OF PROCEDURE The patient arrived to the procedure lab. The risks and benefits of the procedure as well as a full description of our services here and current unavailability of surgical backup were fully explained to the patient and/or their significant other prior to the catheterization. The Timeout was completed, verifying the correct patient and procedure. The patient's procedural site was prepped and draped in the usual fashion. Local anesthetic was given subcutaneously to right radial region with Lidocaine 2%. Using a modified Seldinger technique, arterial access was obtained via the right radial artery, a 6Fr sheath was inserted. Left Coronary Artery selective angiography was performed in multiple views using a 5 Fr. 4.0 [place] catheter. Right Coronary Artery selective angiography was then performed in multiple views using a 5 Fr. 4.0 [place] catheter.The arterial sheath was pulled and a TR Band was applied for hemostasis CORONARY ANGIOGRAPHY DOMINANCE: Left Dominant LEFT HEART ASSESSMENT Left Ventricular Ejection Fraction: by Echo 55 % Normal LV wall motion Normal Left Ventricular systolic function LEFT MAIN: Mild calcification, No angiographically significant stenosis present. LEFT ANTERIOR DESCENDING ARTERY: Medium size vessel with calcification which appears to taper in the midsegment towards the apex. No high-grade stenosis is noted in this vessel though diffuse mild luminal irregularities are noted which tapers towards the apex. CIRCUMFLEX ARTERY: Mild calcification, Dominant vessel with proximal tiny first obtuse marginal branch and a second large obtuse marginal branch with a 60% ostial stenosis. This vessel bifurcates in the 2 bifurcation vessels moderately diffusely diseased of 50 to 70%. Third obtuse marginal branch is noted with mild diffuse 30 to 40% stenosis and the vessel continues as an AV groove branch and gives off a posterior descending artery with mild diffuse disease. RIGHT CORONARY ARTERY: Mild calcification Mild diffuse disease noted. COMPLICATIONS No Complications PROCEDURE MEDICATIONS Fentanyl 50 mcg IV Versed 1 mg IV Versed 1 mg IV Oxygen: 2 L/min via nasal cannula Aspirin (325mg) 1 Tabs PO @ 05/21/2025 08:45:12 Heparin given IA 05/21/2025 09:21:45 Verapamil 2.5mg, 3000 units of Heparin given IA 05/21/2025 09:21:45 SUMMARY OF HEMODYNAMIC DATA Time AIR REST ECG 08:44:03 AO 155/80 (108) SA 09:23:14 AIR REST 09:36:17 Signed By To Randall MD On 05/21/2025 09:41:11 To Randall MD
== END 2025-05-21 11:15 | disposition home or self-care (01) ==
PROVIDERS: PCP Internal Medicine; Referring Provider Internal Medicine Cardiovascular Disease; Visit Provider Internal Medicine Cardiovascular Disease
DX: I25.119 Atherosclerotic heart disease of native coronary artery with unspecified angina pectoris (principal); J44.9 Chronic obstructive pulmonary disease, unspecified; E10.9 Type 1 diabetes mellitus without complications; I10 Essential (primary) hypertension; Z79.899 Other long term (current) drug therapy; K21.9 Gastro-esophageal reflux disease without esophagitis; E78.00 Pure hypercholesterolemia, unspecified; R94.39 Abnormal result of other cardiovascular function study
CPT/HCPCS: 93454; 99152; 99153; Q9967; C1769; C1894

== ENCOUNTER 2025-05-27 18:13 | Emergency (ER) | payer BC, SELFPAY ==
[2025-05-27 18:13] VITALS: BP 158/87; PULSE 70; RESP 16; TEMP 36.9; O2SAT 99; BMI 25.3
--- NOTE | 2025-05-27 18:28 | EDS_ITS ---
HPI History of Present Illness Chief Complaint: Head Injury Detail of Chief Complaint: Head injury Informant: patient Narrative Narrative: Patient presents to the emergency room with complaint of a head injury that occurred prior arrival in the emergency department. Patient was using a large heavy metal delivery driver when it dropped out of his hands as it was up over his head and struck him on top of the head. No loss of consciousness. He denies neck pain. He is not anticoagulated. Unsure of his last tetanus. [facility] Medical History COPD (chronic obstructive pulmonary disease) Fatigue Hyperlipidemia Carpal tunnel syndrome SOB (shortness of breath) Back pain Difficulty swallowing Leg cramps History of edema MVP (mitral valve prolapse) Dysphagia Insulin dependent diabetes mellitus Arthritis Gastric reflux Vitamin D deficiency Osteoarthritis Erectile dysfunction Polyuria Family history of malignant neoplasm of digestive organs Abnormal cardiovascular stress test Chest pain Atherosclerotic heart disease yurok coronary artery w/angina pectoris Elevated coronary artery calcium score BPH (benign prostatic hyperplasia) Essential hypertension Schatzki's ring Hypothyroidism Hypercholesterolemia Type 1 diabetes Food impaction of esophagus Home Medications ?Medication ?Instructions ?Recorded ?Last Taken ?Type finasteride 1 mg tablet 1 mg PO DAILY 08/03/1905/18 History insulin aspart U-100 100 unit/mL 1 sliding scale dose subcut DAILY 08/03/19 1 Day Ago History (3 mL) subcutaneous pen (Novolog ~ 11/04 FlexPen U-100 Insulin aspart) levothyroxine 175 mcg tablet 175 mcg PO DAILY 08/03/19 05/18/21 History lisinopril 2.5 mg tablet 2.5 mg PO DAILY 08/03/19 History aspirin 81 mg tablet,delayed 81 mg PO DAILY 05/15/21 1 07/22/24 History release (Adult Aspirin Regimen) evolocumab 140 mg/mL subcutaneous 140 mg subcut Q2W Unknown History pen injector (Juan Manuel [place]) insulin glargine 100 unit/mL 30 unit subcut QAM Unknown History subcutaneous solution (Lantus U-100 Insulin) omeprazole 40 mg capsule,delayed 40 mg PO QAM 04/22/25 05/21/25 History release sildenafil 100 mg tablet 100 mg PO Q24H PRN erectile 04/22/25 05/19/25 History dysfunction tadalafil 5 mg tablet 5 mg PO DAILY 04/22/2505/19 History naproxen sodium 220 mg capsule 220 mg PO BID PRN pain 05/07/25 Unknown History (Aleve) ranolazine 500 mg tablet,extended 500 mg PO QHS #60 ta bs 05/21/25 Unknown Rx release,12 hr Allergy/AdvReac Type Severity Reaction Status Date / Time No Known Allergies Allergy Verified 05/27/25 18:17 Family History Father Colon cancer Brother Thyroid disorder Diabetes Mother Hypertension CVA (cerebral vascular accident) Surgical History Hx of total knee replacement History of lumbar fusion Hx of knee surgery History of colonoscopy History of left heart catheterization (05/18/21) History of esophagogastroduodenoscopy (EGD) (08/2019) Social History household members: spouse Smoking Status: Never smoker alcohol intake: current substance use type: does not use ROS ROS ED Review of Systems ROS Unobtainable: other Constitutional Constitutional ED: Reports lethargy; Denies chills, fever(s), sweats or weight loss Eyes Eyes: Denies blurry vision, change in vision or diplopia ENT ENT ED: Reports other Details: Scalp laceration ; Denies rhinorrhea or sore throat Cardiovascular Cardiovascular: Denies chest pain, orthopnea or racing heartbeat Respiratory/Chest Respiratory/Chest: Denies cough, dyspnea, dyspnea on exertion, orthopnea or sputum Gastrointestinal Gastrointestinal: Denies abdominal pain, diarrhea, nausea or vomiting Genitourinary Genitourinary ED: Denies dysuria, hematuria or urinary frequency Musculoskeletal Musculoskeletal: Denies arthralgias, back pain, myalgias or neck pain Integumentary Denies abscess, Abrasions or rash Neurologic Neurologic: Denies headache(s) or weakness Psychiatric Psychiatric: Denies anxiety, depression or suicidal thoughts Endocrine Endocrinology: Denies polydipsia, polyphagia or polyuria Hematologic/Lymphatic Hematologic/Lymphatic: Denies easy bleeding, easy bruising or lymphadenopathy Allergic/Immunologic Allergic/Immunologic ED: Denies mouth swelling, tongue swelling or urticaria EXAM Physical Exam Const Vital Signs: 05/27/25 18:13 05/27/25 18:25 Temperature 98.5 F Temperature Source Oral Pulse Rate 70 Respiratory Rate 16 Respiratory Effort Normal Non-Labored Respiratory Depth Normal Respiratory Pattern Normal Blood Pressure 158/87 H Blood Pressure Mean 110 Pulse Ox 99 Oxygen Delivery Method Room Air Room Air Positive well nourished and well developed General Appearance ED: well developed and NAD HEENT Reports TM's clear and moist mucous membranes HEENT Narrative: Patient has a 7 cm scalp laceration top of the scalp. No significant active bleeding currently. No bony step-offs or depressions. No hemotympanum normocephalic and atraumatic; Negative for trauma or tenderness Tympanic Membrane ED: Yes TM's clear Eyes PERRL and EOMs intact bilaterally General Eye ED: Negative for pale conjunctiva or scleral icterus Neck no lymphadenopathy, supple and no JVD General: Negative for tenderness Chest Wall inspection of chest normal and palpation of chest normal Chest: Negative for tenderness Resp normal respiratory effort and clear to auscultation bilaterally Effort and Inspection: Negative for respiratory distress or pain with movement Auscultation: Negative for rhonchi, wheezes or diminished lung sounds Cardio regular rate, regular rhythm, S1 normal heart sound, S2 normal heart sound and no murmurs Peripheral Pulses: pulses 2+ throughout GI normal to inspection, nondistended, normoactive bowel sounds, soft to palpation, non-tender, non-distended and no masses Back/Spine no CVA tenderness and no thoracic nor lumbar tenderness Extremity normal to inspection General Extremety ED: Negative for edema General Extremity: Negative for edema Neuro oriented x3, CN's II-XII intact bilaterally, no sensory deficits noted and gait normal Sensorium / Orientation: awake, alert, oriented to person, oriented to place and oriented to time Motor Exam: strength 5/5 throughout and strength abnormal Psych mental status grossly normal Skin no rashes or lesions noted and no wounds PROC Procedures Lacerations 7 cm scalp laceration: Length: 2.76 in Depth: Sub Q Shape: Linear Prep: Sterile Conditions and Shure-Clens Laceration repair: Irrigated and Lidocaine with epi Irrigated (ml): 50 Number of Sutures/Arianne: 8 Suture Information: Ethilon, Simple and 4-0 MDM MDM MDM Narrative Medical decision making narrative: Patient presents with laceration to his scalp. Blunt trauma to his head with metal object. Clinically looks well. CT scan of the brain without contrast was unremarkable. Please see procedure note for suture repair. Advised have sutures removed in 10 days. Vies to return if increasing pain, redness, swelling, purulent drainage, or condition should worsen anyway. Radiography Diagnostic Testing: Clinical Impression(s) from Imaging Studies Brain CT 05/27/25 18:37 IMPRESSION: No acute intracranial abnormality. Reading Location: [facility] Discharge Plan Triage Chief Complaint: Head Injury ED Provider: Norbert Mclaughlin Dx/Rx/DC Orders Clinical Impression: Closed head injury, Laceration of scalp Instructions: ED Head Injury (Adult), ED Laceration Scalp Stitches or Arianne Prescriptions: No Action Repatha SureClick 140 mg/mL pen injector 140 mg subcut Q2W insulin glargine [Lantus U-100 Insulin] 100 unit/mL solution 30 unit subcut QAM omeprazole 40 mg capsule,delayed release(DR/EC) 40 mg PO QAM sildenafil 100 mg tablet 100 mg PO Q24H PRN (Reason: erectile dysfunction) naproxen sodium [Aleve] 220 mg capsule 220 mg PO BID PRN (Reason: pain) levothyroxine 175 MCG tablet 175 mcg PO DAILY lisinopril 2.5 MG tablet 2.5 mg PO DAILY finasteride 1 MG tablet 1 mg PO DAILY insulin aspart U-100 [Novolog FlexPen U-100 Insulin] 100 unit/mL (3 mL) insulin pen 1 sliding scale dose subcut DAILY Protocol: 2. Sliding Scale Insulin Low-Med Dosing Condition: 150-209 mg/dl = 1 unit Condition: 210-269 mg/dl = 2 units Condition: 270-329 mg/dl = 3 units Condition: 330-389 mg/dl = 4 units Condition: 390-449 mg/dl = 5 units Condition: Greater than 449 call physician Protocol Text: - Use for Total Daily Dose of Insulin 28-36 units - Average size patients LOW MEDIUM DOSING ALGORITHM tadalafil 5 mg tablet 5 mg PO DAILY Patient Comments: TAKE 1 TABLET BY MOUTH EVERY DAY aspirin [Adult Aspirin Regimen] 81 mg tablet,delayed release (DR/EC) 81 mg PO DAILY ranolazine 500 mg tablet extended release 12 hr 500 mg PO QHS Qty: 60 0RF Primary Care Provider: Lina Kumar Referrals: Lina Kumar DO [Primary Care Provider, Internal Medicine] - 10 Day for suture removal Print Language: Eritrean Disposition Disposition: Home, Self Care
--- OUTSIDE RECORDS SUMMARY | 2025-05-27 18:36 | XMS RPT_ITS | CCD ---
Author Organization [facility] Care Team Providers Care Tie Carrier Name Role Phone MariumSyedaDloly Unavailable Fast, Estuardo A Unavailable London Padrona M Unavailable Anum Small Unavailable Unavailable NICOLÁS Flores Unavailable Unavailable Manjossy, Tiffani Unavailable Unavailable Toña Dos Santos Unavailable Unavailable Unavailable Unavailable Dolly Causey Unavailable Fast, Estuardo A Unavailable Julio Padron Unavailable Anum Small Unavailable Unavailable NICOLÁS Flores Unavailable Unavailable Toña Dos Santos Unavailable Unavailable Unavailable Unavailable Shun Herrera Unavailable Unavailable Unavailable NICOLÁS Flores Unavailable Unavailable Fast, Estuardo A Unavailable Shun Herrera Unavailable Jai Shepard Unavailable Moon, Tiffani Unavailable Unavailable marion Chowdhury Unavailable Unavailable Rosalind Byrnes Unavailable Unavailable Beatriz Gaines Unavailable Fast DO, Estuardo A Unavailable Dr. Shun Herrera Unavailable Beatriz Gaines Unavailable Javier Dr. Hoffmann Unavailable Jai Shepard Unavailable Julio Padron MD Unavailable Manjossy BELTRAN, Tiffani Unavailable Unavailable NICOLÁS Flores LPN Unavailable Unavailable Trenton, marion Unavailable Unavailable Toañ Dos Santos Unavailable Unavailable Fitz RN, Rosalind Arriaga Unavailable Unavailable Unavailable Unavailable Unavailable Unavailable Shayne REYEZ , Ricardo Díaz Unavailable To Randall MD Unavailable Unavailable Unavailable José, Dr. Mills Primary Care Provider [phone] José, Dr. Mills Referring Provider [phone] To Randall Attending Provider [phone] Julio Padron Referring Provider Fast DO, Estuardo A Unavailable Manjit Velez Unavailable Albert REYEZ, Julio García Unavailable [phone] José, Dr. Mills Primary Care Provider [phone] Dr. To Randall Attending Provider [phone] Noel, Vandana Unavailable Friend, Dr. Pulido Unavailable [phone] Ariel STATISTICAL MACHINE SERVICER, Kayela Unavailable Unavailable Noel, Vandana Unavailable Benny SHEARING SUPERVISOR, Asiya Unavailable Unavailable Nadya Waddell Unavailable [facility] Unavailable NADYA WADDELL Attending Unavailable JULIO PADRON Referring Unavailable ESTUARDO JIMENEZ Primary Care Unavailable José, Dr. Mills Primary Care Provider [phone] Danelle Blackmon Attending Provider Unavailable José, Dr. Mills Referring Provider [phone] Friend, Dr. Pulido Attending Provider [phone] Friend, Dr. Pulido Other Provider [phone] Noel, Vandana Unavailable Slarb SHEARING SUPERVISOR, Sabrina Unavailable Unavailable Dr. To Randall Attending Provider [phone] Alice Gaines Unavailable Fast DO, Estuardo A Attending Unavailable Marium DO, Dolly Referring Unavailable Fast DO, Estuardo A Consulting [facility] Unavailable Fast DO, Estuardo A Primary Care Provider Fast DO, Dr. Mills Primary Care Physician Albert REYEZ, Dr. Delgado Attending Physician Albert REYEZ, Dr. Delgado Referring Provider Fast DO, Dr. Mills Attending Physician Fast DO, Dr. Mills Referring Provider Prakash REYEZ, Dr. Ariza Attending Physician [phone] Melva Omer Attending Unavailable Melva Omer Referring Unavailable Fast, Estuardo Primary Care Unavailable Fast, Estuardo Primary Care Unavailable To Randall Attending Unavailable Fast, Estuardo Primary Care Unavailable Melva Omer Attending Unavailable Melva Oemr Referring Unavailable Fast, Estuardo Attending Unavailable Fast, Estuardo Referring Unavailable Fast, Estuardo Primary Care Unavailable Bonezzi, Julio Attending Unavailable Bonezzi, Julio Referring Unavailable Fast, Estuardo Primary Care Unavailable Bonejaymei, Julio Attending Unavailable Bonejaymei, Julio Referring Unavailable Fast, Estuardo Primary Care Unavailable Medications Current Medications Medication Drug Class(es) Dates Sig (Normalized) Sig (Original) acetaminophen 325 mg / HYDROcodone bitartrate 5 mg oral tablet (4 sources) Opioid Agonist Start: 01-07-2022 take 1 tablet by mouth every four hours as needed Hydrocodone-Acet aminophen Active 1 TABLET PO EVERY 4 HOURS NEEDED 03 18January 07, 2022 aspirin 81 mg delayed release oral tablet (20 sources) Platelet Aggregation Inhibitor, Nonsteroidal Anti-inflammatory Drug Start: 03-24-2015 take 1 tablet by mouth once daily 1 ml evolocumab 140 mg/ml auto-injector (2 sources) PCSK9 Inhibitor Start: 12-25-2023 famotidine 20 mg oral tablet (1 source) Histamine-2 Receptor Antagonist Start: 03-24-2022 take 1 tablet by mouth twice daily Famotidine (Pepcid) 20 mg tablet Active 20 MG PO TWICE A DAY March 24, 2022 12:00am finasteride 1 mg oral tablet (20 sources) 5-alpha Reductase Inhibitor Start: 03-23-2019 take 1 tablet by mouth once daily Start: 09-17-2018 take 1 tablet by edgar th once daily Finasteride 1 MG Oral Tablet 1 (one) Tablet qd for 0 days Quantity: 30 {Tablet} Refills: 3 Ordered: 17-Sep-2018 Fast DO, Estuardo A Start : 17-Sep-2018 Active Start: 04-03-2018 take 1 tablet by edgar th once daily Finasteride 1 MG Oral Tablet 1 (one) Tablet qd for 0 days Quantity: 90 {Tablet} Refills: 3 Ordered: 03-Apr-2018 Fast DO, Estuardo A Start : 03-Apr-2018 Active Start: 02-03-2013 End: 08-02-2014 take 1 tablet by mouth once daily PROPECIA, 1MG (Oral Tablet) 1 Tablet qd for 0 days Quantity: 90 {Tablet} Refills: 2 Ordered: 02-Aug-2014 NICOLÁS Flores LPN Start : 03-Feb-2013 End : 02-Aug-2014 Inactive Comment on above: Mail order. insulin glargine 100 unt/ml injectable solution (20 sources) Insulin Analog Start: 12-25-2023 Start: 02-17-2022 insulin glargi ne (Lantus SoloStar) 100 UNIT/ML pen 18 Units daily. 0 02/17/2022 Active Start: 06-01-2020 Lantus SoloSta r 100 UNIT/ML Subcutaneous Solution Pen-injector 20 Units qd for 90 days Refills: 3 Ordered: 01-Jun-2020 Fast DO, Estuardo A Fast DO, Estuardo A Start : 01-Jun-2020 Active Comments: Mail order. Start: 01-04-2020 inject 20 [IU] by duarte bcutaneous injection once daily, then inject 100 [IU] by subcutaneous injection Lantus SoloStar 100 UNIT/ML Subcutaneous Solution Pen-injector 20 Units qd for 90 days Quantity: 3 {Box} Refills: 10 Ordered: 04-Jan-2020 Fast DO, Estuardo A Fast DO, Estuardo A Start : 04-Jan-2020 Active Comments: Mail order. Start: 08-03-2019 End: 12-25-2023 Insulin Glargine 100 unit/mL (3 mL) insulin pen Discontinued 20 U SQ 08August 03, 2019 1:00am December 25, 2023 9:00am SLIDING SCALE NO MORE THAN 10 Start: 08-03-2019 inject 10 [IU] by duarte bcutaneous injection at bedtime Insulin Glargine Active 10 UNITS SQ BEFORE MEALS AND AT BEDTIME August 03, 2019 1:00am SLIDING SCALE NO MORE THAN 10 Start: 04-07-2019 inject 20 [IU] by duarte bcutaneous injection once daily, then inject 100 [IU] by subcutaneous injection Lantus SoloStar 100 UNIT/ML Subcutaneous Solution Pen-injector 20 Units qd for 90 days Quantity: 3 {Box} Refills: 3 Ordered: 07-Apr-2019 Fast DO, Estuardo A Fast DO, Estuardo A Start : 07-Apr-2019 Active Comments: Mail order. Start: 04-03-2018 inject 20 [IU] by duarte bcutaneous injection once daily, then inject 100 [IU] by subcutaneous injection Lantus SoloStar 100 UNIT/ML Subcutaneous Solution Pen-injector 20 Units qd for 90 days Refills: 3 Ordered: 03-Apr-2018 Fast DO, Estuardo A Start : 03-Apr-2018 Active Comments: Mail order. Start: 05-28-2017 End: 09-05-2017 inject 1 [IU] by subcutaneous injection twice daily Lantus 100 UNIT/ML Subcutaneous Solution 1 (one) Unit 10 units bid for 0 days Quantity: 1 {Bottle} Refills: 2 Ordered: 05-Sep-2017 NICOLÁS Flores LPN Start : 28-May-2017 End : 05-Sep-2017 Inactive Start: 05-28-2017 End: 09-05-2017 Lantus 100 UNIT/ML Subcutane ous Solution 1 (one) Unit 10 units bid for 0 days Quantity: 1 {Bottle} Refills: 2 Ordered: 05-Sep-2017 NICOLÁS Flores Start : 28-May-2017 End : 05-Sep-2017 Inactive Comment on above: Mail order. Insulin Glargine (Lantus U-100 Insulin) 100 unit/mL Cartridge (7 sources) Start: 04-22-2021 Insulin Glargi ne (Lantus U-100 Insulin) 100 unit/mL Cartridge Active 16 UNIT SC DAILY April 22, 2021 1:28pm Start: 04-22-2021 Insulin Glargi ne (Lantus U-100 Insulin) 100 unit/mL Cartridge Active 20 UNIT SC DAILY April 22, 2021 12:00am Start: 04-22-2021 Insulin Glargi ne (Lantus U-100 Insulin) 100 unit/mL Cartridge Active 16 UNIT SC DAILY April 22, 2021 12:00am 3 ml insulin aspart, human 1 00 unt/ml pen injector (20 sources) Insulin Analog Start: 08-03-2019 Start: 08-03-2019 Insulin Aspart U-100 (Novolog Flexpen U-100 Insulin) 100 unit/mL (3 mL) insulin pen Active 0 UNITS SQ DAILY August 03, 2019 1:00am Start: 03-18-2018 End: 03-18-2018 inject 1 [IU] by subcutaneous injection at mealtime NovoLOG FlexPen 100 UNIT/ML Subcutaneous Solution Pen-injector 1 (one) Unit 10 units with meals for 90 days Quantity: 3 {Box} Refills: 3 Ordered: 18-Mar-2018 Julio Padron MD Start : 18-Mar-2018 End : 18-Mar-2018 Inactive lisinopril 2.5 mg oral tablet (20 sources) Angiotensin Converting Enzyme Inhibitor Start: 10-08-2021 lisinopril 2.5 MG tablet Start: 08-02-2021 take 1 tablet by edgar th twice daily Lisinopril 2.5 MG Oral Tablet 1 (one) Tablet bid for 0 days Quantity: 180 {Tablet} Refills: 3 Ordered: 02-Aug-2021 Julio Padron MD Start : 02-Aug-2021 Active Comments: Mail order. Start: 06-01-2020 take 1 tablet by edgar th twice daily Lisinopril 2.5 MG Oral Tablet 1 (one) Tablet bid for 0 days Quantity: 180 {Tablet} Refills: 3 Ordered: 01-Jun-2020 Fast DO, Estuardo A Fast DO, Estuardo A Start : 01-Jun-2020 Active Comments: Mail order. Start: 02-29-2020 take 1 tablet by edgar th twice daily Lisinopril 2.5 MG Oral Tablet 1 (one) Tablet bid for 0 days Quantity: 180 {Tablet} Refills: 3 Ordered: 29-Feb-2020 Julio Padron MD Start : 29-Feb-2020 Active Comments: Mail order. Start: 08-31-2019 take 1 tablet by edgar th twice daily Lisinopril 2.5 MG Oral Tablet 1 (one) Tablet bid for 0 days Quantity: 180 {Tablet} Refills: 3 Ordered: 31-Aug-2019 José Estuardo A José VALENZUELAEstuardo Start : 31-Aug-2019 Active Comments: Mail order. Start: 08-03-2019 take 1 tablet by edgar th once daily Start: 03-23-2019 take 1 tablet by edgar th once at bedtime Lisinopril 5 MG Oral Tablet 1 (one) Tablet q hs for 0 days Quantity: 90 {Tablet} Refills: 3 Ordered: 23-Mar-2019 Julio Padron MD Start : 23-Mar-2019 Active Comments: Mail order. Start: 09-16-2018 take 1 tablet by edgar th once at bedtime Lisinopril 5 MG Oral Tablet 1 (one) Tablet q hs for 0 days Quantity: 90 {Tablet} Refills: 3 Ordered: 16-Sep-2018 Julio Padron MD Start : 16-Sep-2018 Active Comments: Mail order. Start: 04-03-2018 take 1 tablet by edgar th once at bedtime Lisinopril 2.5 MG Oral Tablet 1 (one) Tablet q hs for 0 days Quantity: 90 {Tablet} Refills: 3 Ordered: 03-Apr-2018 Estuardo Jimenez DO Start : 03-Apr-2018 Active Comment on above: Mail order. Magic Mouth Wash (Bmx) (1 source) Start: 2 Magic Mouth Wash (Bmx) Active 5 ML PO EVERY 4 HOURS NEEDED 180 March 24, 2022 1:01pm diphenhydramine 12.5 mg/5 mL oral liquid 60 mL; aluminum-mag hydroxide-simethicone 400 mg-400 mg-40 mg/5 mL oral susp 60 mL; Lidocaine Viscous 2 % mucosal solution 60 mL; Per 180 mL naproxen sodium 220 mg oral tablet (20 sources) Nonsteroidal Anti-inflammatory Drug Start: 2 take 3 tablets by mouth twice daily as needed for pain take 1 mg by mouth once daily Al ro 220 mg oral tablet qd (220 mg) Active take 5-10 tablets by mouth once daily Aleve 220 MG Oral Capsule 5-10 tablets a day (220 MG) Inactive omeprazole 20 mg delayed release oral tablet (20 sources) Proton Pump Inhibitor Start: 08-03-2019 take 1 tablet by mouth once daily Start: 11-20-2018 omeprazole (Pr iLOSEC) [address] capsule Comment on above: Mail order. ondansetron 4 mg disintegrating oral tablet (4 sources) Serotonin-3 Receptor Antagonist Start: take 4 mg by mouth every eight hours as needed Ondansetron Active 4 MG PO EVERY 8 HOURS NEEDED January 07, 2022 12:00am tadalafil 5 mg oral tablet (20 sources) Phosphodiesterase 5 Inhibitor Start: take 1 tablet by mouth once daily Start: 11-07-2020 take 1 tablet by edgar th once daily Cialis 5 MG Oral Tablet 1 (one) Tablet qd for 90 days Quantity: 90 {Tablet} Refills: 3 Ordered: 07-Nov-2020 Fast DO, Estuardo A Fast DO, Estuardo A Start : 07-Nov-2020 Active Start: 10-06-2019 take 1 tablet by edgar th once daily Cialis 5 MG Oral Tablet 1 (one) Tablet qd for 90 days Quantity: 90 {Tablet} Refills: 3 Ordered: 06-Oct-2019 Fast DO, Estuardo A Fast DO, Estuardo A Start : 06-Oct-2019 Active Start: 07-19-2018 End: 01-16-2019 take 0.25-0.5 tablets by mouth once daily Cialis 20 MG Oral Tablet 1/4-1/2 Tablet daily for 0 days Quantity: 10 {Tablet} Refills: 0 Ordered: 16-Jan-2019 NICOLÁS Flores LPN Start : 19-Jul-2018 End : 16-Jan-2019 Inactive Comments: 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 Start: 01-05-2018 take 0.25-0.5 tablet s by mouth once daily Cialis 20 MG Oral Tablet 1/4-1/2 Tablet daily for 0 days Quantity: 30 {Tablet} Refills: 0 Ordered: 05-Jan-2018 Julio Padron MD Start : 05-Jan-2018 Active Comment on above: 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 Mail order. 1 tab qd and 1/2 tab on saturday (dose change on 04/04/22) Mail order. none on saturday Mail order. 1/2 tab on sundays Completed/Discontinued Medications Medication Drug Class(es) Dates Sig (Normalized) Sig (Original) amoxicillin 875 mg / clavulanate 125 mg oral tablet (20 sources) Penicillin-class Antibacterial Start: 08-18-2019 End: 08-31-2019 take 1 tablet by mouth twice daily Amoxicillin-Pot Clavulanate 875-125 MG Oral Tablet 1 (one) Tablet bid for 0 days Quantity: 20 {Tablet} Refills: 0 Ordered: 31-Aug-2019 Estuardo Jimenez DO, DO, Debra A Start : 18-Aug-2019 End : 31-Aug-2019 Inactive Start: 01-14-2019 End: 01-16-2019 take 1 tablet by mouth twice daily Augmentin 875-125 MG Oral Tablet 1 Tablet bid for 14 days Quantity: 28 {Tablet} Refills: 0 Ordered: 16-Jan-2019 NICOLÁS Flores LPN Start : 14-Jan-2019 End : 16-Jan-2019 Inactive Start: 04-30-2018 End: 05-14-2018 take 1 tablet by mouth twice daily Augmentin 875-125 MG Oral Tablet 1 Tablet bid for 14 days Quantity: 28 {Tablet} Refills: 0 Ordered: 30-Apr-2018 Julio Padron MD Start : 30-Apr-2018 End : 14-May-2018 Inactive azithromycin 250 mg oral tablet (20 sources) Macrolide Antimicrobial Start: 05-17-2022 End: 05-22-2022 Zithromax Z-Godfrey 250 mg oral tablet 1 (one) tablet as directed for 5 days Quantity: 1 {Packet} Refills: 0 Ordered: 17-May-2022 Asiya Zapata LPN Start : 17-May-2022 End : 22-May-2022 Inactive Comments: Dispense z-pack. Take 2 tabs day 1, then 1 tab for 4 days Start: 11-28-2020 End: 12-03-2020 Zithromax Z-Godfrey 250 MG Oral Tablet 2 (two) Tablet day one, then one daily for 4 days for 5 days Quantity: 6 {Tablet} Refills: 0 Ordered: 28-Nov-2020 Julio Padron MD Start : 28-Nov-2020 End : 03-Dec-2020 Inactive Start: 11-25-2017 End: 11-30-2017 Zithromax Z-Godfrey 250 MG Oral Tablet 2 (two) Tablet day one, then one daily for 4 days for 5 days Quantity: 6 {Tablet} Refills: 0 Ordered: 25-Nov-2017 Julio Padron MD Start : 25-Nov-2017 End : 30-Nov-2017 Inactive Comment on above: Dispense z-pack. Reji e 2 tabs day 1, then 1 tab for 4 days cephalexin 500 mg oral tablet (20 sources) Cephalosporin Antibacterial Start: 08-23-19 End: 08-30-19 23 take 1 tablet by mouth twice daily cephALEXin 500 mg oral tablet 1 (one) tablet bid for 7 days Quantity: 14 {Tablet} Refills: 0 Ordered: 22-Aug-2022 Tiffani Mustafa CMA Start : 22-Aug-2022 End : 29-Aug-2022 Inactive cholecalciferol 0.125 mg oral capsule (20 sources) Vitamin D Start: 11-28-19 16 End: 01-17-20 19 take 1 capsule by mouth every week Vitamin D3 5000 UNIT Oral Capsule 1 (one) Capsule 5 -times a week for 0 days Quantity: 60 {Capsule} Refills: 0 Ordered: 16-Jan-2019 NICOLÁS Flores LPN Start : 28-Nov-2015 End : 16-Jan-2019 Inactive clotrimazole 10 mg oral lozenge (20 sources) Azole Antifungal Start: 09-25-19 End: 10-18-19 clotrimazole 10 mg mucous membrane Sofia 5 Sofia daily for 7 days for 7 days Quantity: 35 {Sofia} Refills: 2 Ordered: 17-Oct-2022 Tiffani Mustafa CMA Start : 24-Sep-2022 End : 17-Oct-2022 Inactive Start: 03-29-2022 End: 04-16-2022 Clotrimazole 10 MG Mouth/Thr oat Sofia 5 Sofia dailyfor 10 days for 0 days Quantity: 50 {Sofia} Refills: 0 Ordered: 16-Apr-2022 Fast DO, Estuardo A Fast DO, Estuardo A Start : 29-Mar-2022 End : 16-Apr-2022 Inactive Dexcom G6 Sensor Miscellaneous (10 sources) Start: 03-13-2022 Dexcom G6 Sens or Miscellaneous 1 (one) Cartridge as directed for 0 days Quantity: 2 Kit Refills: 6 Ordered: 13-Mar-2022 Moon DEVINCareyTiffani Start : 13-Mar-2022 Active Comments: please dispense 2 sensors a monthDX: E10.9 Comment on above: please dispense 2 se nsors a monthDX: E10.9 Dexcom G6 Sensor miscellaneous Each (20 sources) Start: 08-06-2022 Dexcom G6 Sens or miscellaneous Each 1 (one) Cartridge as directed for 30 days Quantity: 2 Kit Refills: 6 Ordered: 06-Aug-2022 Julio Padron MD Start : 06-Aug-2022 Active Comments: Change every 2 wks.please dispense 2 sensors a monthDX: E10.9 Comment on above: Change every 2 wks.annabella mcnally dispense 2 sensors a monthDX: E10.9 Dexcom G7 Sensor miscellaneous Device (20 sources) Start: 01-08-2023 Dexcom G7 Sens or miscellaneous Device 1 (one) each as directed for 30 days Quantity: 3 {Each} Refills: 6 Ordered: 08-Jan-2023 Fast DO, Estuardo A Fast DO, Estuardo A Start : 08-Jan-2023 Active Comments: Dispense 3Change q 10 days Start: 08-06-2022 Dexcom G7 Sens or miscellaneous Device 1 (one) each as directed for 30 days Quantity: 3 {Each} Refills: 6 Ordered: 06-Aug-2022 Fast DO, Estuardo A Fast DO, Estuardo A Start : 06-Aug-2022 Active Comments: Dispense 3Change q 10 days Comment on above: Dispense 3Change q 1 0 days diclofenac 35 mg oral capsule (20 sources) Nonsteroidal Anti-inflammatory Drug Start : 04-29 End: 01-16 take 1 capsule by mouth three times daily Zorvolex 35 MG Oral Capsule 1 (one) Capsule tid for 30 days Quantity: 90 {Capsule} Refills: 3 Ordered: 16-Jan-2019 NICOLÁS Flores LPN Start : 29-Apr-2017 End : 16-Jan-2019 Inactive fluconazole 150 mg oral tablet (20 sources) Azole Antifungal Start : 03-29 End: 04-16 Diflucan 150 MG Oral Tablet 1 (one) Tablet daily x 3 days for 0 days Quantity: 3 {Tablet} Refills: 0 Ordered: 16-Apr-2022 Fast DO, Estuardo A Fast DO, Estuardo A Start : 29-Mar-2022 End : 16-Apr-2022 Inactive gabapentin 100 mg oral capsule (20 sources) Anti-epileptic Agent Start : 05-31 End: 04-16 take 1 capsule by mouth three times daily, then take 2 capsules by mouth three times daily Gabapentin 100 MG Oral Capsule 1 (one) Capsule tid for 3 days then 2 tid for 0 days Quantity: 180 {Capsule} Refills: 2 Ordered: 16-Apr-2022 Jonathan George CMA Start : 31-May-2021 End : 16-Apr-2022 Inactive hydroxychloroquine sulfate 200 mg oral tablet (20 sources) Antimalarial, Antirheumatic Agent Start : 09-02 End: 04-16 take 1 tablet by mouth twice daily Hydroxychloroquine Sulfate 200 MG Oral Tablet 1 (one) Tablet bid for 0 days Quantity: 60 {Tablet} Refills: 1 Ordered: 16-Apr-2022 Jonathan George CMA Start : 03-Sep-2019 End : 16-Apr-2022 Inactive 3 ml insulin degludec 100 unt/ml pen injector (20 sources) Insulin Analog inject 100 [IU] by subcutaneous injection in the morning TRESIBA FLEXTOUCH, 100UNIT/ML (Subcutaneous Solution Pen-injector) 23 units in am (100 UNIT/ML) Inactive TRESIBA FLEXTOUC H, 100UNIT/ML (Subcutaneous Solution Pen-injector) 23 units in am (100 UNIT/ML) Active 3 ml insulin lispro 100 unt/ml pen injector (20 sources) Insulin Analog Start: 02-13-2022 inject 10 [IU] by subcutaneous injection three times daily HumaLOG KwikPen 100 UNIT/ML Subcutaneous Solution Pen-injector 10 Units tid for 90 days Quantity: 3 Kit Refills: 3 Ordered: 02-May-2022 Fast DO, Estuardo A Fast DO, Estuardo A Start : 02-May-2022 Active Comments: Mail order. please dispense QS for 90 day supply Start: 05-15-2021 inject 10 [IU] by duarte bcutaneous injection three times daily HumaLOG KwikPen 100 UNIT/ML Subcutaneous Solution Pen-injector 10 Units tid for 90 days Quantity: 3 Kit Refills: 3 Ordered: 15-May-2021 Fast DO, Estuardo A Fast DO, Estuardo A Start : 15-May-2021 Active Comments: Mail order. please dispense QS for 90 day supply Start: 06-01-2020 inject 10 [IU] by duarte bcutaneous injection three times daily HumaLOG KwikPen 100 UNIT/ML Subcutaneous Solution Pen-injector 10 Units tid for 0 days Refills: 0 Ordered: 01-Jun-2020 Fast DO, Estuardo A Fast DO, Estuardo A Start : 01-Jun-2020 Active Start: 04-03-2018 inject 10 [IU] by duarte bcutaneous injection three times daily HumaLOG KwikPen 100 UNIT/ML Subcutaneous Solution Pen-injector 10 Units tid for 90 days Refills: 3 Ordered: 03-Apr-2018 Fast DO, Estuardo A Fast DO, Estuardo A Start : 03-Apr-2018 Active Comments: Mail order. Comment on above: Mail order. Mail order. please d ispense QS for 90 day supply insulin glulisine, human 100 unt/ml injectable solution (20 sources) Insulin Analog Start: 05-28-2017 End: 03-23-2019 Apidra 100 UNIT/ML Injection Solution 1 (one) Unit 8 units with meals for 0 days Quantity: 1 {Bottle} Refills: 2 Ordered: 23-Mar-2019 NICOLÁS Flores LPN Start : 28-May-2017 End : 23-Mar-2019 Inactive Comments: E10.9 Comment on above: E10.9 insulin isophane, human 100 unt/ml injectable suspension (20 sources) Start: 07-23-2012 End: 03-22-2015 HUMULIN N, 100UNIT/ML (Subcutaneous Suspension) 1 Suspension use 30 units SQ bid for 0 days Quantity: 3 {Suspension} Refills: 6 Ordered: 22-Mar-2015 NICOLÁS Flores LPN Start : 23-Jul-2012 End : 22-Mar-2015 Inactive Comments: dx250.51 Start: 07-23-2012 End: 03-22-2015 HUMULIN N, 100UNIT/ML (Subcu taneous Suspension) 1 Suspension use 30 units SQ bid for 0 days Quantity: 3 {Suspension} Refills: 6 Ordered: 22-Mar-2015 NICOLÁS Flores Start : 23-Jul-2012 End : 22-Mar-2015 Inactive Comments: dx250.51 Comment on above: dx250.51 ivermectin 3 mg oral tablet (20 sources) Antiparasitic, Pediculicide Start: 01-22-2021 End: 04-16-2022 Ivermectin 3 MG Oral Tablet 4 Tablet tabs today and on saturday then once a week for 4 weeks for 0 days Quantity: 20 {Tablet} Refills: 0 Ordered: 16-Apr-2022 Jonathan George CMA Start : 22-Jan-2021 End : 16-Apr-2022 Inactive lidocaine hydrochloride 20 mg/ml mucous membrane topical solution (20 sources) Antiarrhythmic, Amide Local Anesthetic Start: 03-26-2022 End: 04-16-2022 Lidocaine Viscous HCl 2 % Mouth/Throat Solution 1 (one) Milliliter 15mL q6hrs swish and spit for 0 days Quantity: 420 {Milliliter} Refills: 0 Ordered: 16-Apr-2022 Jonathan George CMA Start : 26-Mar-2022 End : 16-Apr-2022 Inactive methylPREDNISolone 4 mg oral tablet (20 sources) Corticosteroid Start: 03-15-2023 Medrol (Godfrey) 4 mg oral Tablet, Dose Pack 1 (one) Tab Ther Pack uad for 0 days Quantity: 1 {Packet} Refills: 0 Ordered: 15-Mar-2023 Sabrina Newby LPN Start : 15-Mar-2023 Active Start: 05-06-2016 End: 05-15-2017 Medrol 4 MG Oral Tablet Ther apy Pack 1 (one) Tab Ther Pack uad for 0 days Quantity: 1 {Package} Refills: 0 Ordered: 15-May-2017 NICOLÁS Flores LPN Start : 06-May-2016 End : 15-May-2017 Inactive Start: 05-06-2016 End: 05-15-2017 Medrol 4 MG Oral Tablet Ther apy Pack 1 (one) Tab Ther Pack uad for 0 days Quantity: 1 {Package} Refills: 0 Ordered: 15-May-2017 NICOLÁS Flores Start : 06-May-2016 End : 15-May-2017 Inactive 24 hr metoprolol succinate 25 mg extended release oral tablet (20 sources) beta-Adrenergic Jed Start: 09-12-2022 End: 10-17-2022 take 1 tablet by mouth once daily Toprol XL 25 mg oral Tablet, Extended Release 24 hr 1 (one) tablet qd for 0 days Quantity: 30 {Tablet} Refills: 0 Ordered: 17-Oct-2022 Paweljossy Carey BELTRANsea Start : 12-Sep-2022 End : 17-Oct-2022 Inactive Start: 05-18-2021 take 1 tablet by edgar once daily Metoprolol Succinate (Toprol Xl) 25 mg tablet extended release 24 hr Active 25 MG PO DAILY May 18, 2021 10:12am Start: 03-24-2015 End: 03-24-2015 take 1 tablet by mouth once daily METOPROLOL TARTRATE, 50MG (Oral Tablet) 1 Tablet 6pm before scan and 7am day of scan for 0 days Quantity: 2 {Tablet} Refills: 0 Ordered: 24-Mar-2015 Julio Padron MD Start : 24-Mar-2015 End : 24-Mar-2015 Discontinued moxifloxacin 400 mg oral tablet (20 sources) Quinolone Antimicrobial Start: 08-01-2007 End: 11-24-2008 take 1 tablet by mouth once daily AVELOX, 400MG (Oral Tablet) Tablet QD for 0 days Refills: 0 Ordered: 01-Aug-2007 Tiffany Gaines Start : 01-Aug-2007 End : 24-Nov-2008 Inactive nebivolol 2.5 mg oral tablet (20 sources) Start: 10-02-2010 End: 02-19-2013 take 1 tablet by mouth once daily BYSTOLIC, 2.5MG (Oral Tablet) 1 Tablet qd for 0 days Quantity: 10 {Tablet} Refills: 0 Ordered: 02-Oct-2010 Julio Padron MD Start : 02-Oct-2010 End : 19-Feb-2013 Discontinued 1.5 ml insulin human, isophane 100 unt/ml prefilled syringe (1 source) Start: 07-23-2012 End: 03-22-2015 HUMULIN N, 100UNIT/ML (Subcutaneous Suspension) 1 Suspension use 30 units SQ bid for 0 days Quantity: 3 {Suspension} Refills: 6 Ordered: 22-Mar-2015 NICOLÁS Flores Start : 23-Jul-2012 End : 22-Mar-2015 Inactive Comments: dx250.51 Comment on above: dx250.51 Paxlovid (300/100) 20 x 150 MG & 10 x 100MG Oral Tablet Therapy Pack (5 sources) Start: 01-30-2022 End: 04-16-2022 Paxlovid (300/100) 20 x 150 MG & 10 x 100MG Oral Tablet Therapy Pack use as directed per instructions in pack for 0 days Quantity: 1 {Packet} Refills: 0 Ordered: 16-Apr-2022 Taggstar Sand Signdolly Start : 30-Jan-2022 End : 16-Apr-2022 Inactive Comments: gfr over 60 Start: 01-30-2022 End: 04-16-2022 Paxlovid (300/100) 20 x 150 MG & 10 x 100MG Oral Tablet Therapy Pack use as directed per instructions in pack for 0 days Quantity: 1 {Packet} Refills: 0 Ordered: 16-Apr-2022 Start : 30-Jan-2022 End : 16-Apr-2022 Inactive Comments: gfr over 60 Comment on above: gfr over 60 Paxlovid (300/100) 20 x 150 MG & 10 x 100MG Oral Tablet Therapy Pack (20 sources) Start: 01-30-2022 End: 04-16-2022 Paxlovid (300/100) 20 x 150 MG & 10 x 100MG Oral Tablet Therapy Pack use as directed per instructions in pack for 0 days Quantity: 1 {Packet} Refills: 0 Ordered: 16-Apr-2022 Taggstar, Kayela Start : 30-Jan-2022 End : 16-Apr-2022 Inactive Comments: gfr over 60 Comment on above: gfr over 60 Paxlovid 20 x 150 MG & 10 x 100MG Oral Tablet Therapy Pack (5 sources) Start: 01-30-2022 Paxlovid 20 x 150 MG & 10 x 100MG Oral Tablet Therapy Pack use as directed per instructions in pack for 0 days Quantity: 1 {Packet} Refills: 0 Ordered: 30-Jan-2022 Julio Padron MD Start : 30-Jan-2022 Active Comments: gfr over 60 Comment on above: gfr over 60 prednisoLONE 3 mg/ml oral solution (20 sources) Corticosteroid Start: 03-26-2022 End: 04-02-2022 prednisoLONE 15 MG/5ML Oral Solution 1 (one) Milliliter 5-10 mL four times a day, swish and spit for 7 days Quantity: 280 {Milliliter} Refills: 0 Ordered: 26-Mar-2022 Tiffani Mustafa CMA Start : 26-Mar-2022 End : 02-Apr-2022 Inactive predniSONE 20 mg oral tablet (20 sources) Start: 07-18-2022 End: 07-25-2022 take 1 tablet by mouth once daily predniSONE 20 mg oral tablet 1 Tablet daily for 7 days Quantity: 7 {Tablet} Refills: 0 Ordered: 18-Jul-2022 Julio Padron MD Start : 18-Jul-2022 End : 25-Jul-2022 Inactive Start: 06-14-2022 End: 06-28-2022 predniSONE 5 mg oral tablet 1.5 Tablet as directed for 14 days Quantity: 18 {Tablet} Refills: 0 Ordered: 14-Jun-2022 Julio Padron MD Start : 14-Jun-2022 End : 28-Jun-2022 Inactive Comments: take 1.5 tablets x 7 days, then 1 tab x 7 days. take with food in am Start: 04-26-2022 predniSONE 10 MG Oral Tablet 3 (three) Tablet pills for 4 days 2 pills for 4 days 1 pill for 4 days for 0 days Quantity: 24 {Tablet} Refills: 1 Ordered: 26-Apr-2022 Fast DO, Estuardo A Fast DO, Estuardo A Start : 26-Apr-2022 Active Comments: take with food in am Start: 03-29-2022 End: 04-16-2022 predniSONE 10 MG Oral Tablet 1 (one) Tablet daily as directed for 0 days Quantity: 18 {Tablet} Refills: 0 Ordered: 16-Apr-2022 Jonathan George CMA Start : 29-Mar-2022 End : 16-Apr-2022 Inactive Comments: Take 2 tabs daily for 5 days for 20mg dailythen take one tab daily for 5 daysthen take 1/2 tab daily for 5 days then stop Start: 03-24-2022 take 60 mg by mouth once daily Prednisone Active 60 MG PO DAILY March 24, 2022 12:00am Start: 01-19-2022 End: 04-16-2022 predniSONE 10 MG Oral Tablet 3 (three) Tablet pills for 4 days 2 pills for 4 days 1 pill for 4 days for 0 days Quantity: 24 {Tablet} Refills: 0 Ordered: 16-Apr-2022 Ariel BELTRAN Beckdolly Start : 19-Jan-2022 End : 16-Apr-2022 Inactive Comments: take with food in am Start: 11-17-2021 predniSONE 10 MG Oral Tablet 3 (three) Tablet pills for 4 days 2 pills for 4 days 1 pill for 4 days for 0 days Quantity: 24 {Tablet} Refills: 0 Ordered: 17-Nov-2021 Fast DO, Estuardo A Fast DO, Estuardo A Start : 17-Nov-2021 Active Comments: take with food in am Start: 10-14-2021 predniSONE 10 MG Oral Tablet 3 (three) Tablet pills for 4 days 2 pills for 4 days 1 pill for 4 days for 0 days Quantity: 24 {Tablet} Refills: 0 Ordered: 14-Oct-2021 Fast DO, Estuardo A Fast DO, Estuardo A Start : 14-Oct-2021 Active Comments: take with food in am Start: 06-13-2021 predniSONE 10 MG Oral Tablet 3 (three) Tablet pills for 4 days 2 pills for 4 days 1 pill for 4 days for 0 days Quantity: 24 {Tablet} Refills: 0 Ordered: 13-Jun-2021 Fast DO, Estuardo A Fast DO, Estuardo A Start : 13-Jun-2021 Active Comments: take with food in am Start: 11-05-2011 End: 11-10-2011 take 1 tablet by mouth once daily PREDNISONE, 20MG (Oral Tablet) 1 Tablet daily for 5 days Quantity: 5 {QS} Refills: 0 Ordered: 05-Nov-2011 Julio Padron MD Start : 05-Nov-2011 End : 10-Nov-2011 Inactive Comment on above: take with food in am Take 2 tabs daily fo r 5 days for 20mg dailythen take one tab daily for 5 daysthen take 1/2 tab daily for 5 days then stop take 1.5 tablets x 7 days, then 1 tab x 7 days. take with food in am insulin, regular, human 4 unt inhalation powder (20 sources) Insulin Start: 05-23-2015 End: 03-23-2019 Afrezza 4 UNIT Inhalation Powder 1 (one) Powder Powder 1-2 inhalations tid with meals for 0 days Quantity: 180 {Cartridge} Refills: 5 Ordered: 23-Mar-2019 NICOLÁS Flores LPN Start : 23-May-2015 End : 23-Mar-2019 Inactive Comments: DO NOT PUT THROUGH INSURANCE THEY WILL NOT COVER...WE HAVE A COUPON Start: 05-23-2015 End: 11-25-2015 AFREZZA, 4 & 8UNIT (Inhalati on Powder) uad Powder Powder inhale 1-2 puffs tid with meals qd for 30 days Refills: 5 Ordered: 23-May-2015 NICOLÁS Flores LPN Start : 23-May-2015 End : 25-Nov-2015 Discontinued Comments: This order discontinued per [facility]. HUMULIN R, 100UN IT/ML (Injection Solution) up to 8 units tid (100 UNIT/ML) Inactive Comment on above: DO NOT PUT THROUGH I NSURANCE THEY WILL NOT COVER...WE HAVE A COUPON This order discontin ued per [facility]. rosuvastatin calcium 10 mg oral tablet (20 sources) HMG-CoA Reductase Inhibitor Start: 3 take 1 tablet by mouth once daily rosuvastatin 10 mg oral tablet 1 (one) Tablet daily for 0 days Quantity: 90 {Tablet} Refills: 3 Ordered: 09-Jul-2022 Fast DO, Estuardo A Fast DO, Estuardo A Start : 09-Jul-2022 Active Comments: Mail order. Start: 03-24-2022 End: 12-25-2023 take 10 mg by mouth once daily Rosuvastatin (Crestor) 40 mg tablet Discontinued 10 mg PO DAILY March 24, 2022 9:25am December 25, 2023 9:01am Start: 03-24-2022 Rosuvastatin ( Crestor) 40 mg tablet Active 20 MG PO DAILY March 24, 2022 9:25am Start: 05-18-2021 End: 03-24-2022 take 1 tablet by mouth once daily Rosuvastatin (Crestor) 40 mg tablet Discontinued 40 mg PO DAILY 90 3 May 18, 2021 1:00am March 24, 2022 9:25am Start: 05-15-2021 take 1 tablet by edgar th once daily Rosuvastatin Calcium 10 MG Oral Tablet 1 (one) Tablet daily for 0 days Quantity: 90 {Tablet} Refills: 3 Ordered: 15-May-2021 Fast DO, Estuardo A Fast DO, Estuardo A Start : 15-May-2021 Active Comments: Mail order. Start: 06-01-2020 take 1 tablet by edgar th once daily Rosuvastatin Calcium 10 MG Oral Tablet 1 (one) Tablet daily for 0 days Quantity: 90 {Tablet} Refills: 3 Ordered: 01-Jun-2020 Fast DO, Estuardo A Fast DO, Estuardo A Start : 01-Jun-2020 Active Comments: Mail order. Start: 03-18-2020 take 1 tablet by edgar th once daily Rosuvastatin Calcium 10 MG Oral Tablet 1 (one) Tablet daily for 0 days Quantity: 90 {Tablet} Refills: 3 Ordered: 18-Mar-2020 Fast DO, Estuardo A Fast DO, Estuardo A Start : 18-Mar-2020 Active Comments: Mail order. Start: 08-03-2019 End: 05-18-2021 take 1 tablet by mouth every other day Rosuvastatin 10 MG tablet Discontinued 10 mg PO EVERY OTHER DAY August 03, 2019 1:00am May 18, 2021 10:12am Start: 03-23-2019 take 1 tablet by edgar th once daily Rosuvastatin Calcium 10 MG Oral Tablet 1 (one) Tablet daily for 0 days Quantity: 90 {Tablet} Refills: 3 Ordered: 23-Mar-2019 Fast DO, Estuardo A Fast DO, Estuardo A Start : 23-Mar-2019 Active Comments: Mail order. Start: 09-17-2018 take 1 tablet by edgar th once daily Crestor 10 MG Oral Tablet 1 (one) Tablet daily for 0 days Quantity: 30 {Tablet} Refills: 3 Ordered: 17-Sep-2018 Fast DO, Estuardo A Start : 17-Sep-2018 Active Start: 04-03-2018 take 1 tablet by edgar th once daily Crestor 10 MG Oral Tablet 1 (one) Tablet daily for 0 days Quantity: 90 {Tablet} Refills: 3 Ordered: 03-Apr-2018 Estuardo Jimenez DO A Start : 03-Apr-2018 Active Comment on above: Mail order. sildenafil 100 mg oral tablet (20 sources) Phosphodiesterase 5 Inhibitor Start: 08-01-2022 sildenafiL 100 mg oral tablet 1 (one) Tablet as needed prior to intercourse for 0 days Quantity: 10 {Tablet} Refills: 3 Ordered: 01-Aug-2022 Julio Padron MD Start : 01-Aug-2022 Active Comments: Medication taken as needed. Start: 08-03-2019 Sildenafil Cit rate 100 MG Oral Tablet 1 (one) Tablet as needed prior to intercourse for 0 days Quantity: 10 {Tablet} Refills: 3 Ordered: 15-Aug-2021 Fast DO Estuardo A Fast DO Estuardo A Start : 15-Aug-2021 Active Comments: Medication taken as needed. Start: 01-16-2019 Sildenafil Cit rate 100 MG Oral Tablet 1 (one) Tablet as needed prior to intercourse for 0 days Quantity: 4 {Tablet} Refills: 3 Ordered: 16-Jan-2019 Fast Estuardo A Start : 16-Jan-2019 Active Comments: Medication taken as needed. Comment on above: Medication taken as needed. tiZANidine 4 mg oral tablet (20 sources) Central alpha-2 Adrenergic Agonist Start: 1 End: 2 take 1 tablet by mouth every six hours as needed tiZANidine HCl 4 MG Oral Tablet 1 (one) Tablet q 6 hours prn for 0 days Quantity: 20 {Tablet} Refills: 0 Ordered: 16-Apr-2022 Jonathan George CMA Start : 24-Nov-2020 End : 16-Apr-2022 Inactive Comments: Disp: twenty Dx: Rib pain Comment on above: Disp: twenty Dx: Rib pain Vit O-Hpnmlqz-Slrc-Rutin -Hb196 (Bioflex) 522-42-24-40 mg Tablet (9 sources) Start: 2 End: 4 Vit R-Nizague-Iprj-Rutin- Hb196 (Bioflex) 467-65-44-40 mg Tablet Discontinued 2 {tbl} PO DAILY March 24, 2022 12:00am December 25, 2023 9:01am Start: 03-24-2022 take 2 tablets by mo uth once daily Vit Y-[place]okami-Nydg-Rutin-Hb196 (Bioflex) 499-31-66-40 mg Tablet Active 2 TABLET PO DAILY March 23, 2022 11:00pm Start: 03-24-2022 take 2 tablets by mo uth once daily Vit O-Lafjqiz-Idoo-Rutin-Hb196 (Bioflex) 942-00-10-40 mg Tablet Active 2 TABLET PO DAILY March 24, 2022 12:00am Start: 03-24-2022 Vit C-Bioflav- Zltl-[id number]-[id number] (Bioflex) 943-19-71-40 mg Tablet Active TABLET PO March 24, 2022 12:00am Problems Active Problems Problem Classification Problem Date Documented Da te Episodic/Chronic Acquired foot deformities (20 sources) Acquired bilateral pes planus; Translations: [Flat feet] 10-17-2022 Episodic Calculus of urinary tract (13 sources) Urolithiasis ; Translations: [Urinary calculus, unspecified] 01-15-2022 Episodic Complications of surgical procedures or medical care (20 sources) Postoperative fever; Translations: [Fever postop] Resolved: 3 09-28-2022 Episodic Coronary atherosclerosis and other heart disease (20 sources) Coronary arteriosclerosis; Translations: [Coronary artery disease, non-occlusive] 03-04-2017 Chronic Comment on above: 8-13 moderate diseas e in mid LAD check stress test ri sk facotr modification- he is taking aspirin and statin and chol controlled ldl needs lower risk factor modification see above risk factor modifica tion no sx Diabetes mellitus with complications (20 sources) Proliferative diabetic retinopathy; Translations: [Diabetic proliferative retinopathy] 11-28-2015 Chronic Comment on above: get routine eye chec ks set up eye exam Diabetes mellitus without complication (20 sources) Type 1 diabetes mellitus; Translations: [Type 2 diabetes mellitus] Resolved: 8 03-18-2018 Chronic Comment on above: chronic stable-chalo nue present regimen afrezza works better better absorbed. because doing injections for 37 years have scarring so has to dose again and inconisstent absorption. has more hypoglycemia. been using throughsamples now for 6 weeks his a1c up slightly becuae he was trying to lower his lantus- he will get followup urine for microalbumin- he will make his followup eye exam [id number] is good at 6.0 he will control his own sugars periop Diabetes mellitus without complication (20 sources) Diabetes mellitus without complication Diseases of mouth; excluding dental (20 sources) Ulcer of mouth; Translations: [Mouth ulcers] Resolved: 3 03-26-2022 Episodic Disorders of lipid metabolism (20 sources) Hypercholesterolemia; Translations: [Pure hypercholesterolemia, unspecified] 05-05-2021 Chronic Comment on above: chronic stable-chalo nue present regimen E Codes: Fall (20 sources) Unspecified fall due to ice and snow, initial encounter; Translations: [Fall due to ice or snow] Resolved: 2 07-24-2021 Episodic Esophageal disorders (20 sources) Lower esophageal ring; Translations: [Lower esophageal ring (Schatzki)] 11-13-2019 Chronic Comment on above: doing better after r ecent dilation - stay on ppibid for 6-8 weeks then try qd no sx will follow Essential hypertension (20 sources) Benign essential hypertension; Translations: [Benign essential hypertension] 11-29-2015 Chronic Comment on above: stable off meds trie d numerous ACEI and ARBs and side effects- going to retry at tiny dose and workup- cut salt and caffeine and talked about cardiovascular exercise could be better so t lionel to bid he may need to go [facility] on lisinopril- asked him to monitor bps at home needs improved with his cad/dm chronic stable-chalo nue present regimen he not tolerate high er doses of meds- so will monitor for now watch salt CONTROLLED WITH MED Genitourinary symptoms and ill-defined conditions (20 sources) Proteinuria; Translations: [Proteinuria] Resolved: 3 11-28-2015 Episodic Comment on above: start krishna inhibitor get bp under control urine cx neg may be prostate so try dialy cialis Immunizations and screening for infectious disease (20 sources) Patient encounter status; Translations: [Encounter for screening for COVID-19] Resolved: 3 05-31-2021 Episodic Joint disorders and dislocations; trauma-related (20 sources) Unspecified internal derangement of left knee; Translations: [Internal derangement of left knee] 04-01-2016 Chronic Malaise and fatigue (2 sources) Chronic fatigue, unspecified; 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 continue with exertional CP improved - cath ok - has cad not significant enough for stents discussed with his c ardiologist Dr Randall regarding this symptoms- his ekg showed normal sinus rhythym, normal axis, no acute st/t wave changes i- he had a heart cath 06/06 after abnormal stress test- he doesnt feel a repeat stress test would be helpful in lieu of the previous abnormal and based on his recent heart cath should treat medically for surgery and so will add betablocker and feels his surgeryis not high risk heart surgery- discussed with patient Nutritional deficiencies (20 sources) Vitamin D deficiency; Translations: [Vitamin D deficiency] 04-19-2017 Chronic Comment on above: chronic stable-chalo nue present regimen Open wounds of extremities (20 sources) Laceration of right hand; Translations: [Laceration of hand, right] Resolved: 3 11-22-2020 Episodic Comment on above: U shaped laceration about 1.4 cm long around. goo blood supply to flap in deeper dermis Open wounds of head; neck; and trunk (20 sources) Laceration of forehead; Translations: [Laceration of forehead, initial encounter] Resolved: 6 11-25-2015 Episodic Osteoarthritis (20 sources) Osteoarthrosis, localized, secondary, lower leg; Translations: [Osteoarthritis] Resolved: 6 11-25-2015 Chronic Comment on above: right knee last on right knee Other and unspecified benign neoplasm (20 sources) Polyp of colon; Translations: [Colon polyps] 09-12-2022 Episodic Comment on above: tubular adenoma- rec heck 5 year- Dr friend 09/06 Other connective tissue disease (20 sources) Pain in right finger(s); Translations: [Pain in finger of right hand] Resolved: 8 10-25-2017 Episodic Other connective tissue disease (20 sources) Pain in both feet; Translations: [Bilateral foot pain] 08-24-2020 Episodic Other connective tissue disease (20 sources) Hand pain; Translations: [Hand pain] Resolved: 3 12-22-2020 Episodic Other connective tissue disease (20 sources) Pain in bilateral legs; Translations: [Bilateral leg pain] Resolved: 3 06-20-2021 Episodic Other connective tissue disease (20 sources) Pain in left arm; Translations: [Left arm pain] Resolved: 3 12-25-2021 Episodic Comment on above: with paresthesia Other gastrointestinal disorders (20 sources) Swallowing painful; Translations: [Odynophagia] 10-22-2017 Episodic Other gastrointestinal disorders (9 sources) Diarrhea; Translations: [Diarrhea, unspecified] 04-01-2022 Episodic Other gastrointestinal disorders (20 sources) Alteration in bowel elimination; Translations: [Change in bowel habits] Resolved: 3 04-16-2022 Episodic Other gastrointestinal disorders (20 sources) Altered bowel function; Translations: [Change in bowel habits] Resolved: 3 07-09-2022 Episodic Other gastrointestinal disorders (2 sources) Dysphagia; Translations: [Dysphagia, unspecified] 12-25-2023 Episodic Other injuries and conditions due to external causes (20 sources) Food lodged in esophagus; Translations: [Food impaction of esophagus] 11-13-2019 Episodic Other injuries and conditions due to external causes (9 sources) Allergic angioedema; Translations: [Angioneurotic edema, initial encounter] 04-01-2022 Episodic Other injuries and conditions due to external causes (20 sources) Angioedema; Translations: [Angioedema, sequela] Resolved: 3 03-26-2022 Episodic Other injuries and conditions due to external causes (20 sources) Hamstring injury; Translations: [Hamstring injury] 10-17-2022 Episodic Comment on above: improving- Other lower respiratory disease (20 sources) Rib pain; Translations: [Rib pain] Resolved: 3 11-24-2020 Episodic Other male genital disorders (20 sources) Impotence of organic origin; Translations: [Impotence] 11-19-2016 Chronic Other male genital disorders (19 sources) Impotence; Translations: [Erectile dysfunction] 11-19-2016 Chronic Other male genital disorders (20 sources) Male erectile dysfunction, unspecified; Translations: [Erectile dysfunction] 11-13-2019 Chronic Other nervous system disorders (20 sources) Carpal tunnel syndrome of left wrist; Translations: [Carpal tunnel syndrome, left] 06-07-2021 Chronic Other nervous system disorders (20 sources) Ulnar neuropathy; 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] Resolved: 3 05-31-2021 Chronic Comment on above: improved better Other nervous system disorders (20 sources) Disorder of the peripheral nervous system; Translations: [Sensorimotor neuropathy] 08-10-2022 Chronic Other nervous system disorders (2 sources) Polyneuropathy, unspecified; Translations: [Polyneuropathy, unspecified] Onset: 3 Chronic Other nervous system disorders (20 sources) Paresthesia; Translations: [Paresthesia] 04-19-2017 Episodic Other non-traumatic joint disorders (20 sources) Knee pain; Translations: [Knee pain] Resolved: 6 11-25-2015 Episodic Comment on above: severe ddd medial fa iled exercises steriod injections. had medial button placed. Other non-traumatic joint disorders (20 sources) Pain in unspecified knee; Translations: [Knee pain] Resolved: 6 01-14-2019 Episodic Comment on above: severe ddd medial fa iled exercises steriod injections. had medial button placed. Other non-traumatic joint disorders (20 sources) Pain in right knee; Translations: [Bilateral knee pain] 10-17-2022 Episodic Comment on above: he is seeing ortho a nd going to get opinion on knee replacement Other screening for suspected conditions (not mental disorders or infectious disease) (20 sources) Screening status; Translations: [Encounter for screening for malignant neoplasm of prostate (Renamed from Screening for prostate cancer)] Onset: 5 08-31-2019 Episodic Other skin disorders (20 sources) Nonscarring hair loss, unspecified; Translations: [Loss of hair] 11-19-2016 Episodic Other upper respiratory disease (20 sources) Pain in throat Episodic Other upper respiratory infections (20 sources) Sinusitis; Translations: [Sinusitis] Resolved: 3 05-17-2022 Chronic Other upper respiratory infections (20 sources) Acute sinusitis; Translations: [Sore throat symptom] Onset: 2 Resolved: 3 03-24-2013 Episodic Peripheral and visceral atherosclerosis (20 sources) Peripheral vascular disease; Translations: [PVD (peripheral vascular disease)] 11-28-2015 Chronic Comment on above: get full blood flow screening Residual codes; unclassified (20 sources) Family history of cancer of colon; Translations: [Family history of colon cancer requiring screening colonoscopy] 09-02-2019 Episodic Residual codes; unclassified (20 sources) Non-smoker; Translations: [Nonsmoker] 05-31-2021 Episodic Residual codes; unclassified (20 sources) Influenza-like symptoms; Translations: [Flu-like symptoms] Resolved: 3 05-15-2022 Episodic Residual codes; unclassified (20 sources) Influenza vaccination declined; Translations: [Influenza vaccination declined (Renamed from Refused influenza vaccine)] 07-09-2022 Episodic Residual codes; unclassified (20 sources) Body mass index 20-24 - normal; Translations: [BMI 23.0-23.9, adult] 09-12-2022 Episodic Residual codes; unclassified (2 sources) Viral syndrome; Translations: [Flu-like symptoms] Resolved: 3 01-23-2023 Episodic Spondylosis; intervertebral disc disorders; other back problems (20 sources) Degeneration of lumbar intervertebral disc; Translations: [Degenerative disc disease, lumbar] 07-09-2022 Chronic Spondylosis; intervertebral disc disorders; other back problems (20 sources) Acute low back pain; Translations: [Acute low back pain] Onset: 3 Resolved: 3 11-13-2019 Episodic Comment on above: recommend ice for fi rst 24 hours then heat. toradol. aleve 3 tablets bid. has skelaxin at home will take. bedrest. then knee to chest stretches tomorrow. if b/b incontinence or leg weakness will call seeing dr waddell next month- gave him exercises to do and also back brace discussion going for fusion s/p laminectomy and fusion with bone graft s/p laminectomy and fusion with bone graft- he has some tenderness over area of robotic arm- he says getting better but i have encouraged he discuss with surgeon to see if normal so much better post surgery Thyroid disorders (20 sources) Hypothyroidism; Translations: [Acquired hypothyroidism] Resolved: 0 04-19-2017 Chronic Comment on above: chronic stable-chalo nue present regimen Unclassified (20 sources) Family history of malignant neoplasm of gastrointestinal tract; Translations: [Family history of malignant neoplasm of gastrointestinal tract] 11-28-2015 Episodic Comment on above: see when colonsocopy is due check with javier to see when due for colonsoocpy Unclassified (20 sources) Coronary artery disease, non-occlusive Unclassified (20 sources) Unclassified (20 sources) Screening status; Translations: [Encounter for screening for malignant neoplasm of prostate (Renamed from Screening for prostate cancer)] 08-31-2019 Unclassified (20 sources) Lower esophageal ring (Schatzki) Unclassified (1 source) Other intervertebral disc degeneration, lumbar region without mention of lumbar back pain or lower extremity pain; Translations: [Other intervertebral disc degeneration, lumbar region without mention of lumbar back pain or lower extremity pain] Onset: 5 Unclassified (1 source) Other intervertebral disc degeneration, lumbar region with discogenic back pain only; Translations: [Other intervertebral disc degeneration, lumbar region with discogenic back pain only] Onset: 4 Past or Other Problems Problem Classification Problem Date Documented Date Episodic/Chronic Joint disorders and dislocations; trauma-related (20 sources) Internal derangement of left knee; Translations: [Knee internal derangement, left] 04-01-2016 Other connective tissue disease (20 sources) Pain in finger of right hand; Translations: [Finger pain, right] Resolved: 10-25-2017 10-25-2017 Other connective tissue disease (1 source) Pain in both feet; Translations: [Bilateral foot pain] 08-24-2020 Other injuries and conditions due to external causes (14 sources) Food in esophagus causing other injury, initial encounter; Translations: [Food impaction of esophagus] 11-13-2019 Unclassified (20 sources) CAD (coronary artery disease) (414.00) Unclassified (20 sources) Unspecified Diagnosis Resolved: 10-25-2017 03-22-2015 Unclassified (20 sources) Finger pain, right Unclassified (20 sources) Odynophagia Unclassified (20 sources) Hair loss Unclassified (20 sources) osteoarthrosis, lower leg (715.36) Unclassified (20 sources) Diabetic proliferative retinopathy Unclassified (20 sources) Knee internal derangement, left Unclassified (20 sources) OSTEOARTHROSIS, LOCAL,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) (Renamed from OSTEOARTHROSIS, LOCAL, SCND, LOWER LEG (715.26)) Unclassified (20 sources) Patient encounter status; Translations: [Encounter for routine history and physical exam for male] Resolved: 03-22-2015 03-22-2015 Comment on above: colonscopy 2012 Unclassified (20 sources) PVD (peripheral vascular disease) Unclassified (20 sources) Well Male Exam (V70.0) Unclassified (20 sources) Laceration of forehead, initial encounter Unclassified (20 sources) Family history of colon cancer requiring screening colonoscopy Unclassified (20 sources) Food impaction of esophagus Unclassified (20 sources) Bilateral foot pain Unclassified (20 sources) Laceration of hand, right Unclassified (20 sources) Carpal tunnel syndrome, left Unclassified (20 sources) Encounter for screening for COVID-19 Unclassified (20 sources) Nonsmoker Unclassified (20 sources) Back pain, acute Unclassified (20 sources) Exposure to SARS virus Unclassified (20 sources) Bilateral leg pain Unclassified (20 sources) Fall due to ice or snow Unclassified (5 sources) Left arm pain Unclassified (20 sources) [facility] WELLNESS EXAM 07-09-2022 Viral infection (20 sources) Disease caused by 2019-nCoV; Translations: [COVID] Onset: 04-21-2021 Resolved: 10-17-2022 06-01-2021 Episodic Comment on above: improved received monoclonal antibodies given 04/21/21 Viral infection (20 sources) Disease caused by 2019-nCoV Results Test Name Value Interpretation Reference Range Facility [place] Kirsten 03-18-2025 [facility] [address] [place] [address] Echo Complete 03/18/25 0802 MR#: [id number] Acct: [id number] Name: DARRIUS PADRON Rep #: [id number] : 1965 59 From: To Randall MD Attending Dr: Dr. Julio Padron MD Status: REG CLI Ordering Dr: Julio Padron MD Date: 03/18/25 Location: CVS Sex: M C Admitted: Reason For Study Reason For Study: SOB Procedure This was a 2D Doppler, Color Flow transthoracic echocardiogram. Myocardial strain analysis was performed in this exam to aid in the assessment of cardiac function. Exam performed in department. Left Ventricle Normal LV size. The global longitudinal strain = -17.7 % (normal). The left ventricular ejection fraction is 55 %. No regional wall motion abnormalities noted. Right Ventricle Normal RV size. Normal systolic function. Atria Normal left atrium. Normal right atrium. Bubble contrast study is negative for PFO/ASD. Mitral Valve Normal mitral valve. Tricuspid Valve Normal tricuspid valve. Aortic Valve Normal aortic valve. Pulmonic Valve Normal pulmonic valve. Great Vessels Normal aortic root. The pulmonary artery is normal size. Inferior vena cava collapse with respiration. Pericardium/Pleural No pericardial effusion. Medication 22 gauge I.V. with prn adaptor inserted into right arm. Performed a rapid injection of agitated mix of 9 cc saline and 1cc air to assess for atrial septal defect. MMode/2D Measurements Calculations LVIDd: 4.7 cm IVSd: 1.2 cm Ao root diam: 3.8 cm LVIDs: 3.1 cm LVPWd: 0.96 cm RVDd: 3.2 cm FS: 33.5 % LAV(MOD-bp): 40.5 ml LVAd ap4: 32.7 cm2 SV(MOD-sp4): 53.2 ml LAV(MOD-bp) Indexed: 19.7 ml/m2 LVLd ap4: 8.4 cm SI(MOD-sp4): 25.9 ml/m2 LAV(MOD-sp2): 44.6 ml EDV(MOD-sp4): 104.0 ml LAV(MOD-sp4): 32.5 ml EDV(sp4-el): 108.8 ml LVAs ap4: 20.8 cm2 LVLs ap4: 7.4 cm ESV(MOD-sp4): 50.8 ml ESV(sp4-el): 50.0 ml EF(MOD-sp4): 51.1 % EF(sp4-el): 54.1 % SV(sp4-el): 58.8 ml LA A4 area: 13.7 cm2 LA dimension(2D): 3.6 cm RA A4 area: 14.6 cm2 TAPSE: 2.0 cm Time Measurements MV dec time: 0.21 sec Doppler Measurements Calculations MV E max davonte: 83.4 cm/sec Lat Peak E' Davonte: 9.6 cm/sec Med Peak E' Davonte: 7.6 cm/sec MV A max davonte: 76.8 cm/sec E/E' lat: 8.7 E/E' med: 11.0 MV E/A: 1.1 MV V2 max: 94.5 cm/sec MV P1/2t max davonte: 92.9 cm/sec Ao V2 max: 122.5 cm/sec MV max P.6 mmHg MV P1/2t: 71.5 msec Ao max P.0 mmHg MV V2 mean: 56.2 cm/sec MV dec slope: 380.6 cm/sec2 Ao V2 mean: 85.7 cm/sec MV mean P.5 mmHg MVA(P1/2t): 3.1 cm2 Ao mean P.4 mmHg MV V2 VTI: 29.6 cm Ao V2 VTI: 27.5 cm AV (velocity ratio): 0.73 LV V1 max: 100.4 cm/sec PA V2 max: 112.0 cm/sec LV V1 max P.0 mmHg PA V2 mean: 78.8 cm/sec LV V1 mean P.0 mmHg LV V1 mean: 65.1 cm/sec LV V1 VTI: 20.0 cm ECHO/Echo Complete Interpretation Summary Normal LV size. The global longitudinal strain = -17.7 % (normal). The left ventricular ejection fraction is 55 %. Bubble contrast study is negative for PFO/ASD. ___ Ordering Physician: Albert Delgado Dr., MD Referring Physician: Julio Padron Performed By: Abel Mckeon RCS 03/18/25946 Date To Randall MD CC: Dr. Julio Padron MD; Dr. Estuardo Jimenez DO Date Dictated: 03/18/25801 Date Transcribed: 03/18/25946 Supervisor Beater Room: Signed Normal [facility] Methylmalonic Acid [place] METHYLMAL ACID 167 nmol/L Normal 0-378 [facility] Comment on above: Order Comment: Test( s) 975188-Ooedzvtkokdot Acid, Serumwas developed and its performance characteristicsdetermined by [facility]. It has not been cleared or approvedby the Food and Drug Administration. Result Comment: Perf ormed at: [address] [id number] Signals Intelligence Superintendent: Gerson Acevedo MD, Phone: [phone] Performed By: #### L 501.4021, L506.0400, L503.0106, L300.8000, L501.9520, L7400.3000, L500.4050, L100.0100, L501.6710, L3400.4800, L100.0500, L501.5200 ####[facility] [address] [place], [address] Stress Reporton 03-18-2025 Stress Report [facility] [address] [place] [address] MR#: [id number] Acct: [id number] Name: DARRIUS PADRON Rep #: [id number] : 1965 59 From: To Randall MD Primary Care: Dr. Estuardo Fast, DO Status: R EG CLI Referring Dr: Julio Padron MD Sex: M C Stress Test Report Exercise myocardial perfusion stress test. 59-year-old man with a history of dyspnea on exertion and chest pain. Stress protocol: Resting EKG demonstrates normal sinus rhythm with a rate of 71 bpm resting blood pressure is 130/70 mmHg. The patient exercised according to the regular Kamran protocol for a total duration of 10 minutes attaining a maximum heart rate of 181 bpm which was 112% of maximum predicted heart rate; the maximum workload was 13.3 metabolic equivalents. At rest there were no ST or T wave changes noted to suggest ischemia and at peak exercise upsloping ST changes only were noted which did not meet the criteria for ischemia. No clinical angina was noted the test was terminated due to the target heart rate being achieved/fatigue. The peak blood pressure was 194/80 mmHg. Rate-pressure product was 30,400. Myocardial perfusion protocol. 11.9 mCi of technetium 99m sestamibi was injected at rest. The patient exercised according to regular Kamran protocol for total duration of 10 minutes and at peak exercise 36 mCi of technetium 99m sestamibi was injected stress images were obtained stress and rest images were reconstructed in comparing the short axis vertical long and horizontal long axis. Gated images were also obtained. Perfusion SPECT analysis: Review of the stress images demonstrate normal uptake of tracer noted in all areas of the myocardium. There is a very small portion of the apex with mildly reduced perfusion. The resting images similarly demonstrate normal uptake of tracer noted in all areas of the myocardium. Mild amount of apical ischemia cannot be completely excluded. Gated SPECT analysis: The gated ejection fraction is 67%. Conclusion: Mildly abnormal exercise myocardial perfusion stress test at a high workload with mild apical ischemia. 03/18/25954 Date To Randall MD CC: Dr. Julio Padron MD; Dr. Estuardo Jimenez, DO Date Dictated: 03/18/25948 Date Transcribed: 03/18/25948 Supervisor Beater Room: CO Signed Normal [facility] Testosterone Freeon 03-18-20 TESTOSTER FREE 7.4 pg/mL Normal 7.2-24.0 [facility] Comment on above: Result Comment: Perf ormed at: [facility] Lab[address] [id number] Signals Intelligence Superintendent: Gerson Acevedo MD, Phone: [phone] Performed By: #### L 501.4021, L506.0400, L503.0106, L300.8000, L501.9520, L7400.3000, L500.4050, L100.0100, L501.6710, L3400.4800, L100.0500, L501.5200 ####[facility] [address] [place], [address] CBC W/Diff, Automatedon 09 0-2024 Absolute Lymph 1.05 X10 3/uL Normal 0.83-4.51 [facility] Comment on above: Performed By: #### L 501.4021, L506.0400, L503.0106, L300.8000, L501.9520, L7400.3000, L500.4050, L100.0100, L501.6710, L3400.4800, L100.0500, L501.5200 ####[facility] [address] [place], [place], [id number] Absolute Neut 2.4 X10 3/uL Normal 2.0-7.7 [facility] Comment on above: Performed By: #### L 501.4021, L506.0400, L503.0106, L300.8000, L501.9520, L7400.3000, L500.4050, L100.0100, L501.6710, L3400.4800, L100.0500, L501.5200 ####[facility] [address] [place], [place], [id number] Basophils/100 WBC (Bld) 1.0 % Normal 0-1 [facility] Comment on above: Performed By: #### L 501.4021, L506.0400, L503.0106, L300.8000, L501.9520, L7400.3000, L500.4050, L100.0100, L501.6710, L3400.4800, L100.0500, L501.5200 ####[facility] [address] [place], [address] Eosinophils/100 WBC (Bld) 3.7 % Normal 0-5 [facility] Comment on above: Performed By: #### L 501.4021, L506.0400, L503.0106, L300.8000, L501.9520, L7400.3000, L500.4050, L100.0100, L501.6710, L3400.4800, L100.0500, L501.5200 ####[facility] [address] [place], [address] IG% 0.200 Normal 0.0-0.9 [facility] Comment on above: Result Comment: IG% - Immature Granulocytes (promyelocytes, myelocytes and metamyelocytes) > 1% indicates that a LEFT SHIFT is Present. Performed By: #### L 501.4021, L506.0400, L503.0106, L300.8000, L501.9520, L7400.3000, L500.4050, L100.0100, L501.6710, L3400.4800, L100.0500, L501.5200 ####[facility] [address] [place], [address] Lymphocytes/100 WBC (Bld) 26.1 % Normal 19-41 [facility] Comment on above: Performed By: #### L 501.4021, L506.0400, L503.0106, L300.8000, L501.9520, L7400.3000, L500.4050, L100.0100, L501.6710, L3400.4800, L100.0500, L501.5200 ####[facility] [address] [facility] [place], [address] Monocytes/100 WBC (Bld) 10.0 % Normal 0-10 [facility] Comment on above: Performed By: #### L 501.4021, L506.0400, L503.0106, L300.8000, L501.9520, L7400.3000, L500.4050, L100.0100, L501.6710, L3400.4800, L100.0500, L501.5200 ####[facility] [address] [place], [address] Neutrophils/100 WBC (Bld) 59.0 % Normal 47-70 [facility] Comment on above: Performed By: #### L 501.4021, L506.0400, L503.0106, L300.8000, L501.9520, L7400.3000, L500.4050, L100.0100, L501.6710, L3400.4800, L100.0500, L501.5200 ####[facility] [address] [place], [address] Nucleated RBC (Bld) [#/Vol] 0 10*3/uL Normal 0-5 [facility] Comment on above: Performed By: #### L 501.4021, L506.0400, L503.0106, L300.8000, L501.9520, L7400.3000, L500.4050, L100.0100, L501.6710, L3400.4800, L100.0500, L501.5200 ####[facility] [address] [place], [address] Absolute lymphocyte countOrd ered By: Julio Padron on 03-15-2025 Lymphocytes Auto (Unsp spec) [#/Vol] 1.05 10*3/uL 0.83-4.51 [facility] Absolute neutrophil countOrd ered By: Julio Padron on 03-15-2025 Neutrophils (Bld) [#/Vol] 2.4 10*3/uL 2.0-7.7 [facility] Anion gap in Serum or Plasma Ordered By: Julio Padron on 03-15-2025 Anion gap [Moles/Vol] 11 mmol/L 5-15 [facility] Automated lymphocyte count a s percentage of total leukocytesOrdered By: Juliokarolina Padron on 03-15-2025 Lymphocytes/100 WBC Auto (Unsp spec) 26.1 % 19-41 [facility] BUN/creatinine ratioOrdered By: Julio Padron on 03-15-2025 Urea nitrogen/Creatinine [Mass ratio] 14.6 mg/mg 10-20 [facility] Basophil percentageOrdered B y: Julio Padron on 03-15-2025 Basophils/100 WBC (Bld) 1.0 % 0-1 [facility] Bilirubin, totalOrdered By: Julio Padron on 03-15-2025 Bilirubin [Mass/Vol] 0.75 mg/dL 0.00-1.30 [facility] CBC-Complete Blood Cnt No Di ffon 03-15-2025 Erythrocyte distribution width (RBC) [Ratio] 12.2 % Normal 11.6-14.6 [facility] Comment on above: Performed By: #### L 501.4021, L506.0400, L503.0106, L300.8000, L501.9520, L7400.3000, L500.4050, L100.0100, L501.6710, L3400.4800, L100.0500, L501.5200 #### [facility] [address] [place], [address] Hematocrit (Bld) [Volume fraction] 44.1 % Normal 40-54 [facility] Comment on above: Performed By: #### L 501.4021, L506.0400, L503.0106, L300.8000, L501.9520, L7400.3000, L500.4050, L100.0100, L501.6710, L3400.4800, L100.0500, L501.5200 #### [facility] [address] [place], [address] Hemoglobin (Bld) [Mass/Vol] 15.1 g/dL Normal 13.0-16.5 [facility] Comment on above: Performed By: #### L 501.4021, L506.0400, L503.0106, L300.8000, L501.9520, L7400.3000, L500.4050, L100.0100, L501.6710, L3400.4800, L100.0500, L501.5200 #### [facility] [address] [place], [address] MCH (RBC) [Entitic mass] 32.0 pg Normal 27.0-32.0 [facility] Comment on above: Performed By: #### L 501.4021, L506.0400, L503.0106, L300.8000, L501.9520, L7400.3000, L500.4050, L100.0100, L501.6710, L3400.4800, L100.0500, L501.5200 #### [facility] [address] [place], [address] MCHC (RBC) [Mass/Vol] 34.2 g/dL Normal 32-36 [facility] Comment on above: Performed By: #### L 501.4021, L506.0400, L503.0106, L300.8000, L501.9520, L7400.3000, L500.4050, L100.0100, L501.6710, L3400.4800, L100.0500, L501.5200 #### [facility] [address] [place], [address] MCV (RBC) [Entitic vol] 93.4 fL Normal 80-94 [facility] Comment on above: Performed By: #### L 501.4021, L506.0400, L503.0106, L300.8000, L501.9520, L7400.3000, L500.4050, L100.0100, L501.6710, L3400.4800, L100.0500, L501.5200 #### [facility] [address] [place], [address] Platelet mean volume (Bld) [Entitic vol] 10.2 fL Normal 6.2-12.0 [facility] Comment on above: Performed By: #### L 501.4021, L506.0400, L503.0106, L300.8000, L501.9520, L7400.3000, L500.4050, L100.0100, L501.6710, L3400.4800, L100.0500, L501.5200 #### [facility] [address] [place], [address] Platelets (Bld) [#/Vol] 362 10*3/uL Normal 150-450 [facility] Comment on above: Performed By: #### L 501.4021, L506.0400, L503.0106, L300.8000, L501.9520, L7400.3000, L500.4050, L100.0100, L501.6710, L3400.4800, L100.0500, L501.5200 #### [facility] [address] [place], [address] RBC (Bld) [#/Vol] 4.72 10*6/uL Normal 4.6-6.2 [facility] Comment on above: Performed By: #### L 501.4021, L506.0400, L503.0106, L300.8000, L501.9520, L7400.3000, L500.4050, L100.0100, L501.6710, L3400.4800, L100.0500, L501.5200 #### [facility] [address] [place], [address] RDW SD 42.6 fl Normal 35.1-43.9 [facility] Comment on above: Performed By: #### L 501.4021, L506.0400, L503.0106, L300.8000, L501.9520, L7400.3000, L500.4050, L100.0100, L501.6710, L3400.4800, L100.0500, L501.5200 #### [facility] [address] [place], [address] WBC (Bld) [#/Vol] 4.0 10*3/uL Low 4.4-11.0 [facility] Comment on above: Performed By: #### L 501.4021, L506.0400, L503.0106, L300.8000, L501.9520, L7400.3000, L500.4050, L100.0100, L501.6710, L3400.4800, L100.0500, L501.5200 #### [facility] [address] [place], [address] CRPon 03-15-2025 C-REACTIVE PROT < 3.00 Normal 0.0-3.0 [facility] Comment on above: Performed By: #### L 501.4021, L506.0400, L503.0106, L300.8000, L501.9520, L7400.3000, L500.4050, L100.0100, L501.6710, L3400.4800, L100.0500, L501.5200 ####[facility] [address] [place], [address] CTA Chest W/WO Contraston CTA Chest W/WO Contrast [facility] Imaging Services [address] [place], [place] [address] CTA Chest W/WO Contrast MR#: [id number] Acct: [id number] Name: DARRIUS PADRON Rep #: [id number] : 1965 M 59 From: Patrice Moser MD PCP: Dr. Estuardo Jimenez, DO Status: REG CLI Study: CTA Chest W/WO Contrast Date of Exam: 03/15/25 Exam# [id number] Ordering Dr: Estuardo Jimenez DO PROCEDURE: CTA CHEST W/WO CONTRAST 03/15/2025 REASON FOR EXAM: CTA CHEST PE PROTOCOL - STAT - ELEVATED DDIMER, CHEST PAIN, SOB TECHNIQUE: Procedure Code: CTCTACHWW Modality: CT Procedure: CTA CHEST W/WO CONTRAST Multiplanar Sagittal and Coronal images were obtained. 3D post processing was performed CONTRAST: Isovue 370 VOLUME: 100 mL One or more dose reduction techniques were used (e.g., Automated exposure control, adjustment of the mA and/or kV according to patient size, use of iterative reconstruction technique). RADIATION DOSE SUMMARY: CTDlvol: 20 mGy DLP: 415 mGycm COMPARISON: No prior CT. # of known CTs in the past 12 months: 0 # of known Cardiac Nuclear Medicine Studies in the past 12 months: 0 FINDINGS: Thyroid gland: Negative. Lungs: Mild emphysematous changes. No pulmonary nodules or masses. Pleura: Negative for pleural effusion or pneumothorax. Airways: Imaged bronchi and trachea negative. Mediastinum: Negative for mediastinal mass. Lymph nodes: Negative for axillary, mediastinal or hilar adenopathy. Heart and Vasculature: Pulmonary arteries well opacify with intravenous contrast. Negative for intraluminal thrombus. Heart normal size. Slight vascular calcifications of the thoracic aorta. Coronary Artery Calcifications: Severe vascular calcifications of the coronary arteries Upper Abdomen: Increased stool throughout the colon. Hardware: None. Bones: Age-appropriate degenerative changes of the thoracic spine. CT/CTA Chest W/WO Contrast IMPRESSION: Negative for pulmonary embolus. Mild emphysema. Reading Location: [place] [address] CC: Dr. Estuardo Jimenez DO Supervisor Beater Room: Signed Normal [facility] Carbon dioxide, total [Moles /volume] in Central venous bloodOrdered By: Julio Padron on 03-15-2025 CO2 [Moles/Vol] 25.6 mmol/L 21.0-32.0 [facility] Chloride assayOrdered By: Gulshan Padron on 03-15-2025 Chloride [Moles/Vol] 103 mmol/L 98-108 [facility] Comprehensive Metabolic Prof ilon 03-15-2025 Albumin [Mass/Vol] 4.0 g/dL Normal 3.5-5.0 [facility] Comment on above: Performed By: #### L 501.4021, L506.0400, L503.0106, L300.8000, L501.9520, L7400.3000, L500.4050, L100.0100, L501.6710, L3400.4800, L100.0500, L501.5200 #### [facility] [address] [place], [place], [id number] (943) Albumin/Globulin [Mass ratio] 1.6 {ratio} Normal 0.9-2.4 [facility] Comment on above: Performed By: #### L 501.4021, L506.0400, L503.0106, L300.8000, L501.9520, L7400.3000, L500.4050, L100.0100, L501.6710, L3400.4800, L100.0500, L501.5200 #### [facility] [address] [place], [place], [id number] ALK PHOS 67 U/L Normal 40-129 [facility] Comment on above: Performed By: #### L 501.4021, L506.0400, L503.0106, L300.8000, L501.9520, L7400.3000, L500.4050, L100.0100, L501.6710, L3400.4800, L100.0500, L501.5200 #### [facility] [address] [place], [place], [id number] ALT [Catalytic activity/Vol] 19 U/L Normal <=46 [facility] Comment on above: Performed By: #### L 501.4021, L506.0400, L503.0106, L300.8000, L501.9520, L7400.3000, L500.4050, L100.0100, L501.6710, L3400.4800, L100.0500, L501.5200 #### [facility] [address] [place], [address] AST [Catalytic activity/Vol] 24 U/L Normal <=37 [facility] Comment on above: Performed By: #### L 501.4021, L506.0400, L503.0106, L300.8000, L501.9520, L7400.3000, L500.4050, L100.0100, L501.6710, L3400.4800, L100.0500, L501.5200 #### [facility] [address] [place], [address] Bilirubin [Mass/Vol] 0.75 mg/dL Normal 0.00-1.30 [facility] Comment on above: Performed By: #### L 501.4021, L506.0400, L503.0106, L300.8000, L501.9520, L7400.3000, L500.4050, L100.0100, L501.6710, L3400.4800, L100.0500, L501.5200 #### [facility] [address] [place], [place], [id number] BUN/CRE 14.6 RATIO Normal 10-20 [facility] Comment on above: Performed By: #### L 501.4021, L506.0400, L503.0106, L300.8000, L501.9520, L7400.3000, L500.4050, L100.0100, L501.6710, L3400.4800, L100.0500, L501.5200 #### [facility] [address] [place], [address] Calcium [Mass/Vol] 9.7 mg/dL Normal 7.6-11.0 [facility] Comment on above: Performed By: #### L 501.4021, L506.0400, L503.0106, L300.8000, L501.9520, L7400.3000, L500.4050, L100.0100, L501.6710, L3400.4800, L100.0500, L501.5200 #### [facility] [address] [place], [place], [id number] (145) Chloride [Moles/Vol] 103 mmol/L Normal 98-108 [facility] Comment on above: Performed By: #### L 501.4021, L506.0400, L503.0106, L300.8000, L501.9520, L7400.3000, L500.4050, L100.0100, L501.6710, L3400.4800, L100.0500, L501.5200 #### [facility] [address] [facility] [place], [place], [id number] (049) CO2 [Moles/Vol] 25.6 mmol/L Normal 21.0-32.0 [facility] Comment on above: Performed By: #### L 501.4021, L506.0400, L503.0106, L300.8000, L501.9520, L7400.3000, L500.4050, L100.0100, L501.6710, L3400.4800, L100.0500, L501.5200 #### [facility] [address] [place], [place], [id number] (638) Creatinine [Mass/Vol] 1.17 mg/dL Normal 0.70-1.20 [facility] Comment on above: Performed By: #### L 501.4021, L506.0400, L503.0106, L300.8000, L501.9520, L7400.3000, L500.4050, L100.0100, L501.6710, L3400.4800, L100.0500, L501.5200 #### [facility] [address] [place], [place], [id number] (829) GAP 11 Normal 5-15 [facility] Comment on above: Performed By: #### L 501.4021, L506.0400, L503.0106, L300.8000, L501.9520, L7400.3000, L500.4050, L100.0100, L501.6710, L3400.4800, L100.0500, L501.5200 #### [facility] [address] [place], [address] GFR/1.73 sq M.predicted among non-blacks MDRD (S/P/Bld) [Vol rate/Area] 72 mL/min/{1.73_m2} Normal >60 [facility] Comment on above: Result Comment: mL/m in/1.73m2 CKD-EPI Creatinine Equation (2020) Performed By: #### L 501.4021, L506.0400, L503.0106, L300.8000, L501.9520, L7400.3000, L500.4050, L100.0100, L501.6710, L3400.4800, L100.0500, L501.5200 #### [facility] [address] [place], [address] Globulin (S) [Mass/Vol] 2.5 g/dL Normal 2.2-4.2 [facility] Comment on above: Performed By: #### L 501.4021, L506.0400, L503.0106, L300.8000, L501.9520, L7400.3000, L500.4050, L100.0100, L501.6710, L3400.4800, L100.0500, L501.5200 #### [facility] [address] [place], [address] Glucose [Mass/Vol] 130 mg/dL High 70-99 [facility] Comment on above: Performed By: #### L 501.4021, L506.0400, L503.0106, L300.8000, L501.9520, L7400.3000, L500.4050, L100.0100, L501.6710, L3400.4800, L100.0500, L501.5200 #### [facility] [address] [place], [address] Potassium [Moles/Vol] 4.9 mmol/L Normal 3.3-5.1 [facility] Comment on above: Performed By: #### L 501.4021, L506.0400, L503.0106, L300.8000, L501.9520, L7400.3000, L500.4050, L100.0100, L501.6710, L3400.4800, L100.0500, L501.5200 #### [facility] [address] [place], [address] Sodium [Moles/Vol] 140 mmol/L Normal 133-145 [facility] Comment on above: Performed By: #### L 501.4021, L506.0400, L503.0106, L300.8000, L501.9520, L7400.3000, L500.4050, L100.0100, L501.6710, L3400.4800, L100.0500, L501.5200 #### [facility] [address] [place], [address] T PROT 6.5 g/dL Normal 5.9-8.4 [facility] Comment on above: Performed By: #### L 501.4021, L506.0400, L503.0106, L300.8000, L501.9520, L7400.3000, L500.4050, L100.0100, L501.6710, L3400.4800, L100.0500, L501.5200 #### [facility] [address] [place], [address] Urea nitrogen [Mass/Vol] 17 mg/dL Normal 4-19 [facility] Comment on above: Performed By: #### L 501.4021, L506.0400, L503.0106, L300.8000, L501.9520, L7400.3000, L500.4050, L100.0100, L501.6710, L3400.4800, L100.0500, L501.5200 #### [facility] [address] [place], [address] D-Dimer Quantitative (DVT/PE )on 03-15-2025 D-DIMER QUANT 1.22 FEU/ug/m Invalid Interpretation Code 0.27-0.49 [facility] Comment on above: Order Comment: CRITI LAUREN VALUE CALLED TO NICOLÁS FLORES 03/15/25 Ofelia8 Kassandra Maloney. RESULTS READ BACK BY SAME. Result Comment: D-Di paige ELEVATED (>0.49): Additional studies and clinical assessments are indicated to conclude diagnosis of: Deep Vein Thrombosis (DVT) or Pulmonary Embolism (PE) Performed By: #### L 501.4021, L506.0400, L503.0106, L300.8000, L501.9520, L7400.3000, L500.4050, L100.0100, L501.6710, L3400.4800, L100.0500, L501.5200 #### [facility] [address] [place], [address] Eosinophil percentageOrdered By: Julio Padron on 03-15-2025 Eosinophils/100 WBC (Bld) 3.7 % 0-5 [facility] Erythrocyte distribution wid th ratioOrdered By: Julio Padron on 03-15-2025 Erythrocyte distribution width (RBC) [Ratio] 12.2 % 11.6-14.6 [facility] Erythrocyte distribution wid th standard deviationOrdered By: Julio Padron on 03-15-2025 Erythrocyte distribution width (RBC) [Ratio] 42.6 fl 35.1-43.9 [facility] Glomerular filtration rate ( GFR) estimation/1.73 sq m using serum, plasma, or whole bOrdered By: Julio Padron on 03-15-2025 GFR/1.73 sq M.predicted among non-blacks MDRD (S/P/Bld) [Vol rate/Area] 72 mL/min/{1.73_m2} >60 [facility] Comment on above: mL/min/1.73m2 CKD-EP I Creatinine Equation (2020) Hematocrit Auto (Bld) [Volum e fraction]Ordered By: Julio Padron on 03-15-2025 Hematocrit (Bld) [Volume fraction] 44.1 % 40-54 [facility] Hemoglobin measurementOrdere d By: Julio Padron on 03-15-2025 Hemoglobin (Bld) [Mass/Vol] 15.1 g/dL 13.0-16.5 [facility] Immature granulocytes/100 WB C Auto (Bld)Ordered By: Julio Padron on 03-15-2025 Immature granulocytes/100 WBC (Bld) 0.200 % 0.0-0.9 [facility] Comment on above: IG% - Immature Granu locytes (promyelocytes, myelocytes and metamyelocytes) > 1% indicates that a LEFT SHIFT is Present. L501.4021on 03-15-2025 Trop T High Sen 15 ng/L Normal <=22 [facility] Comment on above: Performed By: #### L 501.4021, L506.0400, L503.0106, L300.8000, L501.9520, L7400.3000, L500.4050, L100.0100, L501.6710, L3400.4800, L100.0500, L501.5200 #### [facility] [address] [place], [place], [address] Laboratory - Chemistry and C hemistry - challengeOrdered By: Julio Padron on 03-15-2025 AST [Catalytic activity/Vol] 24 U/L <38 [facility] MCV (mean corpuscular volume ) determinationOrdered By: Julio Padron on 03-15-2025 MCV (RBC) [Entitic vol] 93.4 fL 80-94 [facility] Magnesiumon 03-15-2025 Magnesium [Mass/Vol] 1.8 mg/dL Normal 1.5-2.2 [facility] Comment on above: Performed By: #### L 501.4021, L506.0400, L503.0106, L300.8000, L501.9520, L7400.3000, L500.4050, L100.0100, L501.6710, L3400.4800, L100.0500, L501.5200 ####[facility] [id number] [place], [address] Magnesium measurement (mass/ volume)Ordered By: Julio Padron on 03-15-2025 Magnesium (Unsp spec) [Mass/Vol] 1.8 mg/dL 1.5-2.2 [facility] Mean corpuscular hemoglobin (MCH) determinationOrdered By: Julio Padron on 03-15-2025 MCH (RBC) [Entitic mass] 32.0 pg 27.0-32.0 [facility] Mean corpuscular hemoglobin concentration (MCHC) determinationOrdered By: Julio Padron on 03-15-2025 MCHC (RBC) [Mass/Vol] 34.2 g/dL 32-36 [facility] Mean platelet volume determi nationOrdered By: Julio Padron on 03-15-2025 Platelet mean volume (Bld) [Entitic vol] 10.2 fL 6.2-12.0 [facility] Monocyte percentageOrdered B y: Julio Padron on 03-15-2025 Monocytes/100 WBC (Bld) 10.0 % 0-10 [facility] Neutrophil percentageOrdered By: Julio Padron on 03-15-2025 Neutrophils/100 WBC (Bld) 59.0 % 47-70 [facility] Nucleated red blood cell per centageOrdered By: Julio Padron on 03-15-2025 Nucleated RBC/100 WBC (Bld) [Ratio] 0 % 0-5 [facility] Platelet countOrdered By: Gulshan Padron on 03-15-2025 Platelets (Bld) [#/Vol] 362 10*3/uL 150-450 [facility] Potassium measurement (mass/ volume)Ordered By: Julio Padron on 03-15-2025 Potassium (Unsp spec) [Mass/Vol] 4.9 mmol/L 3.3-5.1 [facility] RBC Auto (Bld) [#/Vol]Ordere d By: Julio Padron on 03-15-2025 RBC (Bld) [#/Vol] 4.72 10*6/uL 4.6-6.2 [facility] Serum creatinine measurement (mass/volume)Ordered By: Julio Padron on 03-15-2025 Creatinine [Mass/Vol] 1.17 mg/dL 0.70-1.20 [facility] Serum globulin measurementOr dered By: Julio Padron on 03-15-2025 Globulin (S) [Mass/Vol] 2.5 g/dL 2.2-4.2 [facility] Serum glucose measurement (m ass/volume)Ordered By: Julio Padron on 03-15-2025 Glucose [Mass/Vol] 130 mg/dL High 70-99 [facility] Serum or plasma C reactive p rotein measurement (mass/volume)Ordered By: Julio Padron on 03-15-2025 CRP [Mass/Vol] mg/L 0.0-3.0 [facility] Serum or plasma alanine awan otransferase (ALT) measurementOrdered By: Julio Padron on 03-15-2025 ALT [Catalytic activity/Vol] 19 U/L <47 [facility] Serum or plasma albumin gisell urement (mass/volume)Ordered By: Julio Padron on 03-15-2025 Albumin [Mass/Vol] 4.0 g/dL 3.5-5.0 [facility] Serum or plasma albumin/glob ulin mass ratioOrdered By: Julio Padron on 03-15-2025 Albumin/Globulin [Mass ratio] 1.6 {ratio} 0.9-2.4 [facility] Serum or plasma alkaline [place] sphatase measurementOrdered By: Julio Padron on 03-15-2025 ALP [Catalytic activity/Vol] 67 U/L 40-129 [facility] Serum or plasma calcium gisell urement (mass/volume)Ordered By: Julio Padron on 03-15-2025 Calcium [Mass/Vol] 9.7 mg/dL 7.6-11.0 [facility] Serum or plasma free testost erone measurement (mass/volume)Ordered By: Julio Padron on 03-15-2025 Testosterone Free [Mass/Vol] 7.4 pg/mL 7.2-24.0 [facility] Comment on above: Performed at: [facility] [address] [id number] Director: Gerson Acevedo MD, Phone: [phone] Serum or plasma methylmalona te measurement (moles/volume)Ordered By: Julio Padron on 03-15-2025 Methylmalonate [Moles/Vol] 167 nmol/L 0-378 [facility] Comment on above: Performed at: [facility] [address] [id number] Director: Gerson Acevedo MD, Phone: [phone] Serum or plasma urea nitroge n measurement (mass/volume)Ordered By: Julio Padron on 03-15-2025 Urea nitrogen [Mass/Vol] 17 mg/dL 4-19 [facility] Sodium levelOrdered By: Julio Padron on 03-15-2025 Sodium [Moles/Vol] 140 mmol/L 133-145 [facility] T4 Free Directon 03-15-2025 T4 FREE DIRECT 1.40 ng/dL Normal 0.76-1.46 [facility] Comment on above: Order Comment: N Performed By: #### L 501.4021, L506.0400, L503.0106, L300.8000, L501.9520, L7400.3000, L500.4050, L100.0100, L501.6710, L3400.4800, L100.0500, L501.5200 ####[facility] [id number] [place], [place], [address] T4 freeOrdered By: Julio davenport on 03-15-2025 Free T4 [Mass/Vol] 1.40 ng/dL 0.76-1.46 [facility] TSH DL <= 0.005 mIU/L QnOrde red By: Julio Padron on 03-15-2025 TSH Qn 1.360 uIU/mL 0.300-4.20 0 [facility] Thyroid Stim Hormone (TSH)on 09-29-2025 TSH 1.360 uIU/mL Normal 0.300-4.20 0 [facility] Comment on above: Performed By: #### L 501.4021, L506.0400, L503.0106, L300.8000, L501.9520, L7400.3000, L500.4050, L100.0100, L501.6710, L3400.4800, L100.0500, L501.5200 #### [facility] [address] [place], [place], [id number] Total proteinOrdered By: London Padron on 03-15-2025 Protein [Mass/Vol] 6.5 g/dL 5.9-8.4 [facility] Troponin T.cardiac [Mass/vol ume] in Serum or Plasma by High sensitivity methodOrdered By: Julio Padron on 03-15-2025 Troponin T.cardiac High sensitivity method [Mass/Vol] 15 ng/L <22 [facility] Vitamin B12on 03-15-2025 Cobalamin (Vitamin B12) [Mass/Vol] 757 pg/mL Normal 180-4 [facility] Comment on above: Performed By: #### L 501.4021, L506.0400, L503.0106, L300.8000, L501.9520, L7400.3000, L500.4050, L100.0100, L501.6710, L3400.4800, L100.0500, L501.5200 ####[facility] [address] [place], [place], [id number] Vitamin B12 ser/plasOrdered By: Julio Padron on 03-15-2025 Cobalamin (Vitamin B12) [Mass/Vol] 757 pg/mL 180-4 [facility] White blood cell (WBC) count Ordered By: Julio Padron on 03-15-2025 WBC (Bld) [#/Vol] 4.0 10*3/uL Low 4.4-11.0 [facility] CREATININE FINGERSTICKon CREATININE WB < 1.0 Normal 0.70-1.30 [facility] Comment on above: Performed By: #### L 9100.0200 ####[facility] [address] [place], [address] EGFR WB > 60.0000 Normal >60 [facility] Comment on above: Performed By: #### L 9100.0200 ####[facility] [address] [place], [address] Spine Lumbar W/WO Contraston 06-15-2024 Spine Lumbar W/WO Contrast [facility] [address] [place] [address] Spine Lumbar W/WO Contrast MR#: [id number] Acct: [id number] Name: DARRIUS PADRON Rep #: [id number] : 1965 M 59 From: Tee Vargas MD PCP: Dr. Estuardo Jimenez, DO Status: REG CLI Study: Spine Lumbar W/WO Contrast Date of Exam: 05/19 Exam# [id number] Ordering Dr: Melva Omer [id number] STUDY: MRI LUMBAR SPINE WITH AND WITHOUT CONTRAST REASON FOR EXAM: Male, 59 years old. DDD TECHNIQUE: Standardized fat and water weighted pulse sequences were obtained in the sagittal and axial planes. IV 17ml clariscan was administered for the contrast portion of the examination. COMPARISON: 09/26/2021 FINDINGS: T12-L1: Normal endplates. Normal disc height, hydration and morphology. Normal bilateral facet joints. Normal central canal and bilateral lateral recesses. Normal bilateral intervertebral neural foramina. Normal lumbar lordosis. There is no substantial scoliosis. Normal conus medullaris that terminates at the L1/L2. L1-2: Normal endplates. Normal disc height, hydration and morphology. Normal bilateral facet joints. Normal central canal and bilateral lateral recesses. Normal bilateral intervertebral neural foramina. L2-3: Mild bilobed disc protrusion produces mild spinal stenosis and mild bilateral neural foraminal stenosis. L3-4: Mild bilateral facet hypertrophy and moderate ligament flavum hypertrophy. Interval involvement of a large bilobed disc protrusion with an large inferiorly extending right paracentral disc extrusion produces severe spinal stenosis and severe right lateral recess stenosis with effacement of the right L4 nerve root. L4-5: Status post posterior decompression and transpedicular fixation with 2 mm of anterolisthesis of L4 on L5 with no spinal stenosis and mild bilateral neural foraminal stenosis. L5-S1: Normal endplates. Normal disc height, hydration and morphology. Normal bilateral facet joints. Normal central canal and bilateral lateral recesses. Normal bilateral intervertebral neural foramina. Normal visualized sacral ala. Normal visualized paraspinous soft tissue structures. MRI/Spine Lumbar W/WO Contrast IMPRESSION: Interval posterior decompression and transpedicular fixation at L4/L5 with interval development of a large disc protrusion and inferiorly extending right paracentral disc extrusion at L3/L4 producing severe spinal stenosis and severe right lateral recess stenosis. Electronically Signed: Tee Vargas MD at 20:08 EST , CC: ASHLEIGH Omer; Dr. Estuardo Jimenez DO Supervisor Beater Room: Signed Normal [facility] PT D/C Summary (1)on 024 PT D/C Summary (1) [facility] Physical Therapy [facility] [place] [address] / REHABILITATION SERVICES DISCHARGE SUMMARY MR#: [id number] Acct: [id number] Name: DARRIUS PADRON Rep #: [id number] : 1965 59 From: Nadya Ortiz PT, Cert. T, OCS Referring DrMaddie: ASHLEIGH Omer Status: REG RCR Insurance: [employer] SELF PAY INSURANCE Discharge Summary D/C summary: It has been my pleasure to treat DARRIUS PADRON referred by Melva Omer PA-C, with the diagnosis of DDD LUMBAR for a total of 6 visit(s). Discharge Date: Please see the following information for a summary of their discharge status. Subjective Subjective: Patient back is about same Pain Bilateral Back: Pain Intensity (Out of 10): 5 Overall Improvement % Improvement: 40 Objective Objective/Function: OSTURE: mild forward posture PALAPTION: tender erectors spinals NEURO: denies paresthesia/tingling ,reflexes L3-L4 ,L4-L5,L5-S1 2/3 GAIT: ambulates with reciprocal pattern MMT: quads/hams 5/5 ,hip flexion 4/5 ,ankle 5/5 LUMBAR ROM: flexion WFL ,extension MOD/severe loss ,side glides MIN/mod loss FLEXABILITY: hamstrings mins Goals Goal 1:: Patient is I with HEP for back Goal 2:: Patient to improve lumbar ROM for function of recovery for ADL and proper lifting. Goal 3:: Patient to improve back oswestry score by 5 points to improve QOL and function Goal 4:: PT to decrease lumbar by 50% to improve function with less pain Plan Plan: RTD recommend MRI D/C Information d/c sentence: If there are questions or concerns regarding this patient's physical therapy, please feel free to call me at [phone]. Thank you for the referral of this patient. Sincerely, Nadya Ortiz, PT, Cert MDT, OCS Balance/Gait/Functional tests Balance/Special Test Scores Oswestry Low Back Score: 14 Improvement % Improvement: 40 05/28/24 1214 CC: ASHLEIGH Omer; Dr. Estuardo Jimenez, DO KAMAR Signed Normal [facility] Inital Evaluation (1) - PTon 04-28-2024 Inital Evaluation (1) - PT [facility] Physical Therapy [facility] [place] [address] / REHABILITATION SERVICES INITIAL EVALUATION MR#: [id number] Acct: [id number] Name: DARRIUS PADRON Rep #: [id number] : 1965 58 From: Nadya Ortiz PT, Cert. MD Uriarte, OCS Referring Dr.: Melva Omer PA-C Status: REG R Insurance: [facility] SELF PAY INSURANCE Patient's Visit Information Visit Information Visit Information: DARRIUS PADRON is a 58 year old M referred to Physical Therapy by Melva Omer PA-C with a diagnosis of DDD LUMBAR. Date of Evaluation: 04/28/24 Physical Therapist: Nadya Ortiz, PT, Cert MDT, OCS Visit Plan Frequency: 2x /Week Duration: 6 Months Plan: PT INTERVENTIONS DLS ,POSTURAL EX'S ,LE FLEXABILITY AND MODALITIES PRN Subjective Subjective: This 58 y/o male presents to physical therapy with lumbar pain. Patient has h/o lumbar fusion September 2022 due to severe stenosis. But had episode therapy with knee surgery and doing a exercises prone stretching caused pain in back last 2022. Lumbar pain worse in symmetrical lumbar seen PA at [facility] ,did prednisone pack 1 week otherwise Celebrex. Did x-rays but will f/u DR Pineda possible MRI . Aggravating sitting ,extending ,twisting.. Alleviating walking ,heat. Coughing/sneezing +. Bowel/bladder -. Constant ache. Patient sleeping okay. Patient condition affects QOL and function housework tasks. Patient plans to get orthotics SOCAIL: Pain Bilateral Back: Pain Intensity (Out of 10): 6 Pain Intensity Range: 10 Objective Objective: POSTURE: mild forward posture PALAPTION: tender erectors spinals NEURO: denies paresthesia/tingling ,reflexes L3-L4 ,L4-L5,L5-S1 2/3 GAIT: ambulates with reciprocal pattern MMT: quads/hams 5/5 ,hip flexion 4/5 ,ankle 5/5 LUMBAR ROM: flexion min loss ,extension severe loss ,side glides mod loss FLEXABILITY: hamstrings mins Special Tests L/S Slump test left side: Negative L/S Slump test right side: Negative L/S Left Straight Leg Raise: Negative L/S Right Straight Leg Raise: Negative Lumbar Standing: Flexion - Mechanical Response: No effect Lumbar Standing: Flexion - Symptoms During Testing: No effect Lumbar Standing: Flexion - Symptoms After Testing: No effect Lumbar Standing: Extension - Mechanical Response: No effect Lumbar Standing: Extension - Symptoms During Testing: Increases Lumbar Standing: Extension - Symptoms After Testing: No worse Lumbar Standing: Right Side Glides - Mechanical Response: No effect Lumbar Standing: Right Side [place] - Symptoms During Testing: No effect Lumbar Standing: Right Side [place] - Symptoms After Testing: No effect Lumbar Standing: Left Side [place] - Mechanical Response: No effect Lumbar Standing: Left Side [place] - Symptoms During Testing: No effect Lumbar Standing: Left Side [place] - Symptoms After Testing: No effect Balance/Special Test Scores Oswestry Low Back Score: 14 Goals Goal 1:: Patient is I with HEP for back Goal Time Frame: 4-6 Weeks Goal 2:: Patient to improve lumbar ROM for function of recovery for ADL and proper lifting. Goal Time Frame: 4-6 Weeks Goal 3:: Patient to improve back oswestry score by 5 points to improve QOL and function Goal Time Frame: 4-6 Weeks Goal 4:: PT to decrease lumbar by 50% to improve function with less pain Goal Time Frame: 4-6 Weeks Rehabilitation Potential Physical Therapy Diagnosis: This patient has lumbar pain with h/o lumbar fusion September 2022 with pain with position and motion testing worse with extension better with flexion benefit from skilled PT Rehabilitation Potential: Good Anticipated Interventions Patient/Client Instruction: Educate patient on: Condition and Plan of Care For the Purpose of:: To decrease pain, To increase ROM, To improve muscle performance and motor function, To improve ability to perform ADL's, To increase tolerance to activity/condition/positi on, To improve ability of physical actions for home/community/work/leisu re, To decrease soft tissue restriction, To increase flexibility/ROM and To improve tolerance to ADL's Therapeutic Exercise to Include: Strength training, Postural training, Flexibilty training and Dynamic Lumbar Stabilization For the Purpose of:: To decrease pain, To increase ROM, To improve muscle performance and motor function, To increase tolerance to activity/condition/positi on, To improve ability of physical actions for home/community/work/leisu re, To improve health of tissue, To decrease soft tissue restriction, To increase flexibility/ROM, To reduce risk of recurrence and To improve tolerance to ADL's TENS: Yes IF ES: Yes Cryotherapy (ice pack, ice massage): Yes Thermo therapy (hot pack): Yes Ultrasound (thermal/non thermal): Yes For the Purpose of:: To decrease swelling/inflammation, To improve nutrient delivery to tissue, To (more content not included)... Normal [facility] Absolute lymphocyte countOrd ered By: [facility] Fast on 06-03-2023 Lymphocytes Auto (Unsp spec) [#/Vol] 0.76 10*3/uL 0.83-4.51 [facility] Basophil percentageOrdered B y: Estuardo Fast on 06-03-2023 Basophils/100 WBC (Bld) 0.5 % 0-1 [facility] Chloride [Moles/Vol] 100 mmol/L 98-107 [facility] Eosinophils/100 WBC (Bld) 2.0 % 0-5 [facility] Glucose [Mass/Vol] 139 mg/dL 74-106 [facility] Comment on above: Fasting Glucose resu lt greater than or equal to 126 mg/dL suggests DIABETES MELLITUS per A.D.A. criteria. Neutrophils (Bld) [#/Vol] 6.9 10*3/uL 2.0-7.7 [facility] Neutrophils/100 WBC (Bld) 79.5 % 47-70 [facility] Potassium [Moles/Vol] 4.3 mmol/L 3.5-5.1 [facility] Sodium [Moles/Vol] 136 mmol/L 136-145 [facility] WBC (Bld) [#/Vol] 8.6 10*3/uL 4.4-11.0 [facility] Blood erythrocytes count (nu mber/volume)Ordered By: [facility] Fast on 06-03-2023 RBC (Bld) [#/Vol] 3.69 10*6/uL 4.6-6.2 [facility] Blood hemoglobin measurement (mass/volume)Ordered By: Estuardo Fast on 06-03-2023 Hemoglobin (Bld) [Mass/Vol] 10.5 g/dL 13.0-16.5 [facility] Blood lymphocytes/100 leukoc ytesOrdered By: Estuardo Fast on 06-03-2023 Lymphocytes/100 WBC (Bld) 8.8 % 19-41 [facility] Blood monocytes/100 leukocyt esOrdered By: Estuardo Fast on 06-03-2023 Monocytes/100 WBC (Bld) 8.5 % 0-10 [facility] Blood platelet mean volumeOr dered By: Estuardo Fast on 06-03-2023 Platelet mean volume (Bld) [Entitic vol] 10.3 fL 6.2-12.0 [facility] Determination of erythrocyte mean corpuscular volume (MCV)Ordered By: [facility] on 06-03-2023 MCV (RBC) [Entitic vol] 89.4 fL 80-94 [facility] Hematocrit Auto (Bld) [Volum e fraction]Ordered By: [facility] on 06-03-2023 Hematocrit (Bld) [Volume fraction] 33.0 % 40-54 [facility] Laboratory - Chemistry and C hemistry - challengeOrdered By: [facility] on [facility]23 CK [Catalytic activity/Vol] 152 U/L 39-308 [facility] CO2 [Moles/Vol] 31.0 mmol/L 21.0-32.0 [facility] Urea nitrogen/Creatinine [Mass ratio] 18.1 mg/mg 10-20 [facility] Laboratory - Hematology and Cell countsOrdered By: [facility] on 06-03-2023 Erythrocyte distribution width (RBC) [Entitic vol] 43.4 fL 35.1-43.9 [facility] Erythrocyte distribution width (RBC) [Ratio] 13.2 % 11.6-14.6 [facility] Immature granulocytes/100 WBC (Bld) 0.700 % 0.0-0.9 [facility] Comment on above: IG% - Immature Granu locytes (promyelocytes, myelocytes and metamyelocytes) > 1% indicates that a LEFT SHIFT is Present. MCH (RBC) [Entitic mass] 28.5 pg 27.0-32.0 [facility] Nucleated RBC/100 WBC (Bld) [Ratio] 0 % 0-5 [facility] MCHC Auto (RBC) [Mass/Vol]Or dered By: [facility] on 06-03-2023 MCHC (RBC) [Mass/Vol] 31.8 g/dL 32-36 [facility] No Panel InformationOrdered By: [facility] on 06-03-2023 Estimated GFR (MDRD) Amer 93 mL/min >60 [facility] Comment on above: GFR Calc Estimated GFR (MDRD) Non-Af Amer 77 mL/min >60 [facility] Comment on above: Non- GFR Calc Platelets bldOrdered By: Kiara ra Fast on 06-03-2023 Platelets (Bld) [#/Vol] 358 10*3/uL 150-450 [facility] Serum or plasma calcium gisell urement (mass/volume)Ordered By: Estuardo Fast on 06-03-2023 Calcium [Mass/Vol] 9.1 mg/dL 8.5-10.1 [facility] Serum or plasma creatinine m easurement (mass/volume)Ordered By: Estuardo Fast on 06-03-2023 Creatinine [Mass/Vol] 1.05 mg/dL 0.70-1.30 [facility] Comment on above: The validity of the calculated GFR & GFRAA in patients over 70 years has not been determined. Clinical correlation is essential. Serum or plasma urea nitroge n measurement (mass/volume)Ordered By: Estuardo Fast on 06-03-2023 Urea nitrogen [Mass/Vol] 19 mg/dL 7-18 [facility] Thin prep Papanicolaou smear with manual screeningOrdered By: Estuardo Fast on 06-03-2023 Thin prep Papanicolaou smear with manual screening 5 5-15 [facility] CBC with auto diff ([id number])Or dered By: Clinical Operations Manager on 01-15-2023 Basophils (Bld) [#/Vol] 0.0 10*3/uL Normal 0.0-0.2 [facility]; [facility] Work Phone: Comment on above: PATIENT WAS FASTINGP ERFORMED BY: [facility] [id number] Basophils/100 WBC (Bld) 1 % Normal [facility]; [facility] Work Phone: Comment on above: PATIENT WAS FASTINGP ERFORMED BY: [facility] [id number] Eosinophils (Bld) [#/Vol] 0.2 10*3/uL Normal 0.0-0.4 [facility]; [facility] Work Phone: Comment on above: PATIENT WAS FASTINGP ERFORMED BY: [employer])[facility] [id number] Eosinophils/100 WBC (Bld) 6 % Normal [facility]; [facility] Work Phone: Comment on above: PATIENT WAS FASTINGP ERFORMED BY: SHERLY Otoole6370 Martinez RoadCrawley Memorial Hospitalin [place] [id number] Erythrocyte distribution width (RBC) [Ratio] 13.2 % Normal 11.6-15.4 [facility]; [facility] Work Phone: Comment on above: PATIENT WAS FASTINGP ERFORMED BY: SHERLY Seayco Akgzeu[address] [facility] [id number] Hematocrit (Bld) [Volume fraction] 41.6 % Normal 37.5-51.0 [facility]; [facility] Work Phone: Comment on above: PATIENT WAS FASTINGP ERFORMED BY: SHERLY Sergio Anrsmq5978 Martinez RoadWahkiacus [place] [id number] Hemoglobin (Bld) [Mass/Vol] 13.3 g/dL Normal 13.0-17.7 [facility]; [facility] Work Phone: Comment on above: PATIENT WAS FASTINGP ERFORMED BY: [facility] Uueolj2244 Martinez RoadCrawley Memorial Hospitalin [place] [id number] Immature granulocytes (Bld) [#/Vol] 0.0 10*3/uL Normal 0.0-0.1 [facility]; [facility] Work Phone: Comment on above: PATIENT WAS FASTINGP ERFORMED BY: Sergio Slnupg5725 Martinez RoadCrawley Memorial Hospitalin [place] [id number] Immature granulocytes/100 WBC (Bld) 0 % Normal [facility]; [facility] Work Phone: Comment on above: PATIENT WAS FASTINGP ERFORMED BY: [facility] Apwxpb[address] [facility] [place] [id number] Lymphocytes (Bld) [#/Vol] 1.1 10*3/uL Normal 0.7-3.1 [facility]; [facility] Work Phone: Comment on above: PATIENT WAS FASTINGP ERFORMED BY: Lab[facility] Ryovjr9214 Martinez RoadCrawley Memorial Hospitalin [place] [id number] Lymphocytes/100 WBC (Bld) 28 % Normal [facility]; [facility] Work Phone: Comment on above: PATIENT WAS FASTINGP ERFORMED BY: SHERLY Geenasaroj BarbourPfgvdv6217 [facility] [id number] MCH (RBC) [Entitic mass] 27.8 pg Normal 26.6-33.0 [facility]; [facility] Work Phone: Comment on above: PATIENT WAS FASTINGP ERFORMED BY: SHERLY Barbourlin6370 [facility] [id number] MCHC (RBC) [Mass/Vol] 32.0 g/dL Normal 31.5-35.7 [facility] prehensive Internal Medicine; [facility] Work Phone: Comment on above: PATIENT WAS FASTINGP ERFORMED BY: SHERLY Otoole6370 [facility] [id number] MCV (RBC) [Entitic vol] 87 fL Normal 79-97 [facility]; [facility] Work Phone: Comment on above: PATIENT WAS FASTINGP ERFORMED BY: SHERLY Otoole6370 [facility] [id number] Monocytes (Bld) [#/Vol] 0.4 10*3/uL Normal 0.1-0.9 [facility]; [facility] Work Phone: Comment on above: PATIENT WAS FASTINGP ERFORMED BY: SHERLY Barbourlin6370 [facility] [id number] Monocytes/100 WBC (Bld) 11 % Normal [facility]; [facility] Work Phone: Comment on above: PATIENT WAS FASTINGP ERFORMED BY: SHERLY Labsaroj BarbourDdpkrb7364 [facility] [id number] Neutrophils (Bld) [#/Vol] 2.1 10*3/uL Normal 1.4-7.0 [facility]; [facility] Work Phone: Comment on above: PATIENT WAS FASTINGP ERFORMED BY: SHERLY Otoole6370 [facility] [id number] Neutrophils/100 WBC (Bld) 54 % Normal [facility]; [facility] Work Phone: Comment on above: PATIENT WAS FASTINGP ERFORMED BY: SHERLY Otoole6370 MartinezPemisc[facility] [id number] Platelets (Bld) [#/Vol] 273 10*3/uL Normal 150-450 [facility]; [facility] Work Phone: Comment on above: PATIENT WAS FASTINGP ERFORMED BY: SHERLY Otoole6370 [facility] [id number] RBC (Bld) [#/Vol] 4.79 10*6/uL Normal 4.14-5.80 [facility]; [facility] Work Phone: Comment on above: PATIENT WAS FASTINGP ERFORMED BY: SHERLY Alexa Otoole6370 [facility] [id number] WBC (Bld) [#/Vol] 3.9 10*3/uL Normal 3.4-10.8 [facility]; [facility] Work Phone: Comment on above: PATIENT WAS FASTINGP ERFORMED BY: SHERLY Otoole6370 [facility] [id number] HGB A1C ([id number])Ordered By: S ystem Allergy And Immunology Specialist on 01-15-2023 HbA1c (Bld) [Mass fraction] 6.6 % Abnormal 4.8-5.6 [facility]; [facility] Work Phone: Comment on above: . Prediabetes: 5.7 - 6.4 Diabetes: >6.4 Glycemic control for adults with diabetes: <7.0 PATIENT WAS FASTINGP ERFORMED BY: SHERLY Barbourlin6370 [facility] [id number] LIPID PANEL ([id number])Ordered B y: Clinical Operations Manager on 01-15-2023 Cholesterol [Mass/Vol] 160 mg/dL Normal 100-199 [facility]; [facility] Work Phone: Comment on above: PATIENT WAS FASTINGP ERFORMED BY: SHERLY Labsaroj Qjsoju3553 Martinez RoadDublin [place] [id number] Cholesterol in HDL [Mass/Vol] 80 mg/dL Normal [facility]; [facility] Work Phone: Comment on above: PATIENT WAS FASTINGP ERFORMED BY: SHERLY Labconancy BarbourUtugcp3460 [address] RoadDublin [place] [id number] Triglyceride [Mass/Vol] 60 mg/dL Normal 0-149 [facility]; [facility] Work Phone: Comment on above: PATIENT WAS FASTINGP ERFORMED BY: SHERLY Labconancy Hcxvtb4943 [address] RoadDublin [place] [id number] LIPID PANEL (43405) 12 mg/dL Normal 5-40 [facility]; [facility] Work Phone: Comment on above: PATIENT WAS FASTINGP ERFORMED BY: SHERLY Labsaroj BarbourXcakkm0867 [address] RoadDublin [place] [id number] LIPID PANEL (48125) 68 mg/dL Normal 0-99 [facility]erens[facility]; [facility] Work Phone: Comment on above: PATIENT WAS FASTINGP ERFORMED BY: SHERLY Labsaroj BarbourUadhjd7021 [address] RoadDublin [place] [id number] LIPID PANEL (16194) 0.9 {ratio} Normal 0.0-3.6 [facility]; [facility] Work Phone: Comment on above: LDL/HDL Ratio Men Wo men 1/2 Avg.Risk 1.0 1.5 Avg.Risk 3.6 3.2 2X Avg.Risk 6.2 5.0 3X Avg.Risk 8.0 6.1 PATIENT WAS FASTINGP ERFORMED BY: SHERLY [facility] Ljjhgu0599 [address] RoadDublin [place] [id number] METABOLIC PANEL, COMPREHENSI VE ([id number])Ordered By: Clinical Operations Manager on 01-15-2023 Albumin [Mass/Vol] 4.0 g/dL Normal 3.8-4.9 [facility]; [facility] Work Phone: Comment on above: PATIENT WAS FASTINGP ERFORMED BY: SHERLY [facility]aced[facility] Hdnuwx2827 [address] RoadDublin [place] [id number] Albumin/Globulin [Mass ratio] 1.6 {ratio} Normal 1.2-2.2 [facility]; [facility] Work Phone: Comment on above: PATIENT WAS FASTINGP ERFORMED BY: SHERLY [facility]aced[facility] Zddlxj3929 [address] RoadDublin [place] [id number] ALP [Catalytic activity/Vol] 67 U/L Normal 44-121 [facility]; [facility] Work Phone: Comment on above: PATIENT WAS FASTINGP ERFORMED BY: SHERLY Labced[facility] Clinhl4308 [address] RoadDublin [place] [id number] ALT [Catalytic activity/Vol] 21 U/L Normal 0-44 [facility]; [facility] Work Phone: Comment on above: PATIENT WAS FASTINGP ERFORMED BY: SHERLY Seaycedar [facility] Zmsoiv2257 [address] RoadDublin [place] [id number] AST [Catalytic activity/Vol] 32 U/L Normal 0-40 [facility]; [facility] Work Phone: Comment on above: PATIENT WAS FASTINGP ERFORMED BY: SHERLY Geenajamee Mvoxbl8306 [address] RoadDublin [place] [id number] Bilirubin [Mass/Vol] 0.5 mg/dL Normal 0.0-1.2 Comp rehensive [facility] Medicine; [facility] Work Phone: Comment on above: PATIENT WAS FASTINGP ERFORMED BY: [facility] Iemkkh4789 [address] RoadDublin [place] [id number] Calcium [Mass/Vol] 9.7 mg/dL Normal 8.7-10.2 [facility]; [facility] Work Phone: Comment on above: PATIENT WAS FASTINGP ERFORMED BY: SHERLY Labcedar [facility] Jskpcx2272 [address] RoadDublin [place] [id number] Chloride [Moles/Vol] 102 mmol/L Normal 96-106 Comp rehensive [facility] Medicine; [facility] Work Phone: Comment on above: PATIENT WAS FASTINGP ERFORMED BY: SHERLY [facility] Ffxuxa2815 [address] RoadDublin [place] [id number] CO2 [Moles/Vol] 25 mmol/L Normal 20-29 [facility]; [facility] Work Phone: Comment on above: PATIENT WAS FASTINGP ERFORMED BY: CB [facility] Itwftl6106 [address] RoadDublin [place] [id number] Creatinine [Mass/Vol] 1.16 mg/dL Normal 0.76-1.27 [facility] prehensive Internal Medicine; [facility] Work Phone: Comment on above: PATIENT WAS FASTINGP ERFORMED BY: [facility] Fyyefp0542 [address] RoadDublin [place] [id number] GFR/1.73 sq M.predicted among non-blacks MDRD (S/P/Bld) [Vol rate/Area] 73 mL/min/{1.73_m2} Normal Comprehens e [facility]; [facility] Work Phone: Comment on above: PATIENT WAS FASTINGP ERFORMED BY: [facility] Ydlmgn8286 [address] RoadDublin [place] [id number] Globulin (S) [Mass/Vol] 2.5 g/dL Normal 1.5-4.5 [facility]; [facility] Work Phone: Comment on above: PATIENT WAS FASTINGP ERFORMED BY: [facility] Wuljts5655 [address] RoadDublin [place] [id number] Glucose [Mass/Vol] 97 mg/dL Normal 70-99 [facility]; [facility] Work Phone: Comment on above: PATIENT WAS FASTINGP ERFORMED BY: [facility] Dtfepx5074 [address] RoadDublin [place] [id number] Potassium [Moles/Vol] 4.4 mmol/L Normal 3.5-5.2 [facility] prehensive Internal Medicine; [facility] Work Phone: Comment on above: PATIENT WAS FASTINGP ERFORMED BY: [facility] Bhhhlc9073 [address] RoadDublin [place] [id number] Protein [Mass/Vol] 6.5 g/dL Normal 6.0-8.5 [facility]; [facility] Work Phone: Comment on above: PATIENT WAS FASTINGP ERFORMED BY: SHERLY Alexa Otoole6370 [address] RoadDublin [place] [id number] Sodium [Moles/Vol] 139 mmol/L Normal 134-144 [facility]; [facility] Work Phone: Comment on above: PATIENT WAS FASTINGP ERFORMED BY: SHERLY Labjameenancy BarbourIqcniu8149 [address] RoadDublin [place] [id number] Urea nitrogen [Mass/Vol] 18 mg/dL Normal 6-24 [facility]; [facility] Work Phone: Comment on above: PATIENT WAS FASTINGP ERFORMED BY: SHERLY Sergionancy Djrofb0641 [address] RoadDublin [place] [id number] Urea nitrogen/Creatinine [Mass ratio] 16 mg/mg Normal 9-20 [facility]; [facility] Work Phone: Comment on above: PATIENT WAS FASTINGP ERFORMED BY: SHERLY Barbourlin[address] [facility]in [place] [id number] MICROALBUMINOrdered By: Syst em Allergy And Immunology Specialist on 01-15-2023 Albumin DL <= 20 mg/L (U) [Mass/Vol] 14.7 ug/mL Normal [facility]; [facility] Work Phone: Comment on above: PATIENT WAS FASTINGP ERFORMED BY: SHERLY Labjameenancy Pcmkck[address] [facility]in [place] [id number] Albumin/Creatinine (U) [Mass ratio] 14 {mg/g_creat} Normal 0-29 [facility]; [facility] Work Phone: Comment on above: Normal: 0 - 29 Moder ately increased: 30 - 300 Severely increased: >300 PATIENT WAS FASTINGP ERFORMED BY: SHERLY Labsaroj Pgutev3112 [address] RoadDublin [place] [id number] Creatinine (U) [Mass/Vol] 105.1 mg/dL Normal [facility]; [facility] Work Phone: Comment on above: PATIENT WAS FASTINGP ERFORMED BY: [facility] Efrork2159 [facility] [id number] TSH ([id number])Ordered By: Silvia m Allergy And Immunology Specialist on 01-15-2023 TSH Qn 7.260 {uIU/mL} Abnormal 0.450-4.50 0 [facility]; [facility] Work Phone: Comment on above: PATIENT WAS FASTINGP ERFORMED BY: [facility] Tgpisd1790 [facility] [id number] Vitamin D Hydroxy ([id number])Ord ered By: Clinical Operations Manager on 01-15-2023 25-hydroxyvitamin D [Mass/Vol] 56.5 ng/mL Normal 30.0-100.0 [facility]; [facility] Work Phone: Comment on above: Vitamin D deficiency has been defined by the [place] ofMedicine and an Endocrine Society practice guideline as alevel of serum 25-OH vitamin D less than 20 ng/mL (1,2).The Endocrine Society went on to further define vitamin Dinsufficiency as a level between 21 and 29 ng/mL (2).1. IOM ([place] of Medicine). 2010. Dietary reference intakes for calcium and D. [place]: The National Academies Press.2. Herminio MF, Sima NC, Aurelio GRIGGS, et al. Evaluation, treatment, and prevention of vitamin D deficiency: an Endocrine Society clinical practice guideline. JCEM. 2010; 96(7):1911-30. PATIENT WAS FASTINGP ERFORMED BY: [facility] Pogiln4311 [facility] [id number] Culture, urineOrdered By: Dr Maddie Jimenez on 09-30-2022 Bacteria identified Cx Nom (U) Culture exhibits no growth. [facility] Basophil percentageOrdered B y: Dr. Jimenez on 09-28-2022 WBC (Bld) [#/Vol] 6.9 10*3/uL 4.4-11.0 [facility] Basophil percentage 0 SEEN /hpf 0-5 [facility] Blood erythrocytes count (nu mber/volume)Ordered By: Dr. Jimenez on 09-28-2022 RBC (Bld) [#/Vol] 4.10 10*6/uL 4.6-6.2 [facility] Blood hemoglobin measurement (mass/volume)Ordered By: Dr. Jimenez on 09-28-2022 Hemoglobin (Bld) [Mass/Vol] 12.6 g/dL 13.0-16.5 [facility] Blood platelet mean volumeOr dered By: Dr. Jimenez on 09-28-2022 Platelet mean volume (Bld) [Entitic vol] 9.5 fL 6.2-12.0 [facility] Determination of erythrocyte mean corpuscular volume (MCV)Ordered By: Dr. Jimenez on 09-28-2022 MCV (RBC) [Entitic vol] 93.9 fL 80-94 [facility] Hematocrit Auto (Bld) [Volum e fraction]Ordered By: Dr. Jimenez on 09-28-2022 Hematocrit (Bld) [Volume fraction] 38.5 % 40-54 [facility] Laboratory - Hematology and Cell countsOrdered By: Dr. Jimenez on 09-28-2022 Erythrocyte distribution width (RBC) [Entitic vol] 43.2 fL 35.1-43.9 [facility] Erythrocyte distribution width (RBC) [Ratio] 12.5 % 11.6-14.6 [facility] MCH (RBC) [Entitic mass] 30.7 pg 27.0-32.0 [facility] MCHC Auto (RBC) [Mass/Vol]Or dered By: Dr. Jimenez on 09-28-2022 MCHC (RBC) [Mass/Vol] 32.7 g/dL 32-36 [facility] Mucus LM Ql (Urine sed)Order ed By: Dr. Jimenez on 09-28-2022 Mucus Ql (Urine sed) 0 SEEN /hpf [facility] Platelets bldOrdered By: Dr. Jimenez on 09-28-2022 Platelets (Bld) [#/Vol] 463 10*3/uL 150-450 [facility] Squamous epithelial cells de tection in urine sediment by light microscopyOrdered By: Dr. Jimenze on 09-28-2022 Epithelial cells.squamous LM Ql (Urine sed) 0 SEEN /hpf 0-5 [facility] Urinalysis, Office ([id number])Or dered By: Sabrina Newby on 09-28-2022 Glucose Test strip (U) [Mass/Vol] Negative Normal [facility]; [facility] Work Phone: Hemoglobin Ql (U) Negative Normal Compreh ensive Internal Medicine; [facility] Work Phone: pH (U) 6 [pH] Abnormal [facility]; [facility] Work Phone: Specific gravity (U) [Rel density] 1.010 1 Normal [facility]; [facility] Work Phone: Urobilinogen (24H U) [Mass/Time] Normal Normal [facility]; [facility] Work Phone: Bilirubin Ql (U) Negative Normal Comprehe nsive Internal Medicine; [facility] Work Phone: Ketones Ql (U) Negative Normal Comprehens [facility]; [facility] Work Phone: Leukocyte esterase Test strip Ql (U) Negative Normal [facility]; [facility] Work Phone: Nitrite Ql (U) Negative Normal [facility]; [facility] Work Phone: Protein Ql (U) Negative Normal Comprehens [facility]; [facility] Work Phone: Urine blood detectionOrdered By: Dr. Jimenez on 09-28-2022 RBC Ql (U) Negative Negative [facility] RBC Ql (U) 0 SEEN /hpf 0-5 [facility] Urine clarityOrdered By: Dr. Jimenez on 09-28-2022 Clarity (U) Clear Clear [facility] Urine color determinationOrd ered By: Dr. Jimenez on 09-28-2022 Color (U) Yellow Yellow [facility] Urine glucose detectionOrder ed By: Dr. Jimenez on 09-28-2022 Glucose Ql (U) Normal mg/dl Normal [facility] Urine pHOrdered By: Dr. Jimenez on 09-28-2022 pH (U) 7.0 [pH] 5.0 - 8.0 [facility] Urine sediment bacteria coun t by microscopy (number/high power field)Ordered By: Dr. Jimenez on 09-28-2022 Bacteria LM.HPF (Urine sed) [#/Area] 0 /[HPF] None Seen [facility] Urine specific gravity measu rementOrdered By: Dr. Jimenez on 09-28-2022 Specific gravity (U) [Rel density] 1.010 1.002-1.03 0 [facility] Urobilinogen Auto test strip Ql (U)Ordered By: Dr. Jimenez on 09-28-2022 Urobilinogen Ql (U) Normal mg/dl Normal [facility] Basophil percentageOrdered B y: Dr. Jimenez on 09-27-2022 Bilirubin [Mass/Vol] 0.50 mg/dL 0.20-1.00 [facility] Comment on above: For patients on eltr ombopag therapy, use of Dimension Smyer TBIL is not recommended. Chloride [Moles/Vol] 98 mmol/L 98-107 [facility] Glucose [Mass/Vol] 190 mg/dL 74-106 [facility] Comment on above: Fasting Glucose resu lt greater than or equal to 126 mg/dL suggests DIABETES MELLITUS per A.D.A. criteria. Potassium [Moles/Vol] 3.9 mmol/L 3.5-5.1 [facility] Protein [Mass/Vol] 7.0 g/dL 6.4-8.2 [facility] Sodium [Moles/Vol] 133 mmol/L 136-145 [facility] Laboratory - Chemistry and C hemistry - challengeOrdered By: Dr. Jimenez on 09-27-2022 ALP [Catalytic activity/Vol] 87 U/L 45-117 [facility] ALT [Catalytic activity/Vol] 45 U/L 16-61 [facility] CO2 [Moles/Vol] 31.0 mmol/L 21.0-32.0 [facility] Globulin (S) [Mass/Vol] 3.9 g/dL 2.2-4.2 [facility] Urea nitrogen/Creatinine [Mass ratio] 22.5 mg/mg 10-20 [facility] No Panel InformationOrdered By: Dr. Jimenez on 09-27-2022 Estimated GFR (MDRD) Amer 88 mL/min >60 [facility] Comment on above: GFR Calc Estimated GFR (MDRD) Non-Af Amer 73 mL/min >60 [facility] Comment on above: Non- GFR Calc Troponin I High Sensitivity 5 pg/mL 3.0-78.0 [facility] Comment on above: Please Note: New Angely t Units and Gender Specific Reference Ranges. For more information see Policy Stat Procedure Smyer High Sensitivity Troponin (TNIH) and attachments. Serum or plasma albumin gisell urement (mass/volume)Ordered By: Dr. Jimenez on 09-27-2022 Albumin [Mass/Vol] 3.1 g/dL 3.2-5.0 [facility] Serum or plasma albumin/glob ulin mass ratioOrdered By: Dr. Jimenez on 09-27-2022 Albumin/Globulin [Mass ratio] 0.8 {ratio} 0.9-2.4 [facility] Serum or plasma calcium gisell urement (mass/volume)Ordered By: Dr. Jimenez on 09-27-2022 Calcium [Mass/Vol] 9.9 mg/dL 8.5-10.1 [facility] Serum or plasma creatinine m easurement (mass/volume)Ordered By: Dr. Jimenez on 09-27-2022 Creatinine [Mass/Vol] 1.11 mg/dL 0.70-1.30 [facility] Comment on above: The validity of the calculated GFR & GFRAA in patients over 70 years has not been determined. Clinical correlation is essential. Serum or plasma urea nitroge n measurement (mass/volume)Ordered By: Dr. Jimenez on 09-27-2022 Urea nitrogen [Mass/Vol] 25 mg/dL 7-18 [facility] Thin prep Papanicolaou smear with manual screeningOrdered By: Dr. Jimenez on 09-27-2022 Thin prep Papanicolaou smear with manual screening 37 U/L 15-37 [facility] Thin prep Papanicolaou smear with manual screening 4 5-15 [facility] No Panel InformationOrdered By: Dr. Jimenez on 09-17-2022 Thyroid Stimulating Hormone (TSH) 0.60 uIU/mL 0.358-3.74 [facility] CBC W/AUTO DIFF WBC (97850)O rdered By: Clinical Operations Manager on 09-12-2022 Basophils (Bld) [#/Vol] 0.0 10*3/uL Normal 0.0-0.2 [facility]; [facility] Work Phone: Comment on above: PATIENT NOT FASTINGP ERFORMED BY: SHERLY Labconancy BarbourQzyfeq1864 [address] RoadDublin [place] [id number] Basophils/100 WBC (Bld) 1 % Normal [facility]; [facility] Work Phone: Comment on above: PATIENT NOT FASTINGP ERFORMED BY: SHERLY Seayconancy OtooleVkwztc0676 [address] RoadDublin [place] [id number] Eosinophils (Bld) [#/Vol] 0.2 10*3/uL Normal 0.0-0.4 [facility]; [facility] Work Phone: Comment on above: PATIENT NOT FASTINGP ERFORMED BY: SHERLY [facility] Ajputn5398 [address] RoadDublin [place] [id number] Eosinophils/100 WBC (Bld) 3 % Normal [facility]; [facility] Work Phone: Comment on above: PATIENT NOT FASTINGP ERFORMED BY: SHERLY Otoole[address] [facility] [id number] Erythrocyte distribution width (RBC) [Ratio] 12.5 % Normal 11.6-15.4 [facility]; [facility] Work Phone: Comment on above: PATIENT NOT FASTINGP ERFORMED BY: SHERLY Otoole[address] [facility] [id number] Hematocrit (Bld) [Volume fraction] 45.8 % Normal 37.5-51.0 [facility]; [facility] Work Phone: Comment on above: PATIENT NOT FASTINGP ERFORMED BY: SHERLY [facility] Nybhpb4680 [address] RoadCrawley Memorial Hospitalin [place] [id number] Hemoglobin (Bld) [Mass/Vol] 15.2 g/dL Normal 13.0-17.7 [facility]; [facility] Work Phone: Comment on above: PATIENT NOT FASTINGP ERFORMED BY: SHERLY Barbourlin6370 [address]blin [place] [id number] Immature granulocytes (Bld) [#/Vol] 0.0 10*3/uL Normal 0.0-0.1 [facility]; [facility] Work Phone: Comment on above: PATIENT NOT FASTINGP ERFORMED BY: SHERLY Labconancy Obppmy6524 [address] RoadDublin [place] [id number] Immature granulocytes/100 WBC (Bld) 0 % Normal [facility]; [facility] Work Phone: Comment on above: PATIENT NOT FASTINGP ERFORMED BY: SHERLY [facility] Jgoqgl9189 [address] RoadDublin [place] [id number] Lymphocytes (Bld) [#/Vol] 1.2 10*3/uL Normal 0.7-3.1 [facility]; [facility] Work Phone: Comment on above: PATIENT NOT FASTINGP ERFORMED BY: SHERLY Labconancy BarbourWwohlj5457 [address] Roadblin [place] [id number] Lymphocytes/100 WBC (Bld) 21 % Normal [facility]; [facility] Work Phone: Comment on above: PATIENT NOT FASTINGP ERFORMED BY: SHERLY [facility] Hryvny0013 Martinez RoadCrawley Memorial Hospitalin [place] [id number] MCH (RBC) [Entitic mass] 31.0 pg Normal 26.6-33.0 [facility]; [facility] Work Phone: Comment on above: PATIENT NOT FASTINGP ERFORMED BY: SHERLY Labsaroj BarbourYydjmv9870 [address] Roadblin [place] [id number] MCHC (RBC) [Mass/Vol] 33.2 g/dL Normal 31.5-35.7 [facility] prehensive Internal Medicine; [facility] Work Phone: Comment on above: PATIENT NOT FASTINGP ERFORMED BY: CB [facility] Fmrwlh2399 [address] RoadDublin [place] [id number] MCV (RBC) [Entitic vol] 94 fL Normal 79-97 [facility]; [facility] Work Phone: Comment on above: PATIENT NOT FASTINGP ERFORMED BY: CB [facility] Ldsjxt0593 [address] RoadDublin [place] [id number] Monocytes (Bld) [#/Vol] 0.4 10*3/uL Normal 0.1-0.9 [facility]; [facility] Work Phone: Comment on above: PATIENT NOT FASTINGP ERFORMED BY: CB [facility] Skzejw0406 [address] RoadDublin [place] [id number] Monocytes/100 WBC (Bld) 7 % Normal [facility]; [facility] Work Phone: Comment on above: PATIENT NOT FASTINGP ERFORMED BY: CB [facility] Jwrbkc5825 [address] RoadDublin [place] [id number] Neutrophils (Bld) [#/Vol] 4.0 10*3/uL Normal 1.4-7.0 [facility]; [facility] Work Phone: Comment on above: PATIENT NOT FASTINGP ERFORMED BY: CB [facility] Aqkwre6613 [address] RoadDublin [place] [id number] Neutrophils/100 WBC (Bld) 68 % Normal [facility]; [facility] Work Phone: Comment on above: PATIENT NOT FASTINGP ERFORMED BY: CB [facility] Bnnbsq0615 [address] RoadDublin [place] [id number] Platelets (Bld) [#/Vol] 375 10*3/uL Normal 150-450 [facility]; [facility] Work Phone: Comment on above: PATIENT NOT FASTINGP ERFORMED BY: CB [facility] Eqeeyi4343 [address] RoadDublin [place] [id number] RBC (Bld) [#/Vol] 4.90 10*6/uL Normal 4.14-5.80 Compr ehensive Internal Medicine; [facility] Work Phone: Comment on above: PATIENT NOT FASTINGP ERFORMED BY: CB [facility] Epdgiv7489 [address] RoadDublin [place] [id number] WBC (Bld) [#/Vol] 5.8 10*3/uL Normal 3.4-10.8 [facility]pre [facility]; [facility] Work Phone: Comment on above: PATIENT NOT FASTINGP ERFORMED BY: CB [facility] Zjahvm1042 [address] RoadDublin [place] [id number] METABOLIC PANEL, COMPREHENSI VE ([id number])Ordered By: Clinical Operations Manager on 09-12-2022 Albumin [Mass/Vol] 4.2 g/dL Normal 3.8-4.9 [facility]; [facility] Work Phone: Comment on above: PATIENT NOT FASTINGP ERFORMED BY: CB [facility] Lbesef7582 [address] RoadDublin [place] [id number] Albumin/Globulin [Mass ratio] 1.9 {ratio} Normal 1.2-2.2 [facility]; [facility] Work Phone: Comment on above: PATIENT NOT FASTINGP ERFORMED BY: CB [facility] Pggwgz9222 [address] RoadDublin [place] [id number] ALP [Catalytic activity/Vol] 79 U/L Normal 44-121 [facility]; [facility] Work Phone: Comment on above: PATIENT NOT FASTINGP ERFORMED BY: CB [facility] Ptisxe6031 [address] RoadDublin [place] [id number] ALT [Catalytic activity/Vol] 47 U/L Abnormal 0-44 [facility]; [facility] Work Phone: Comment on above: PATIENT NOT FASTINGP ERFORMED BY: CB [facility] Fpyusb7195 [address] RoadDublin [place] [id number] AST [Catalytic activity/Vol] 35 U/L Normal 0-40 [facility]; [facility] Work Phone: Comment on above: PATIENT NOT FASTINGP ERFORMED BY: CB [facility] Neqwcl5390 [address] RoadDublin [place] [id number] Bilirubin [Mass/Vol] 0.4 mg/dL Normal 0.0-1.2 [facility]; [facility] Work Phone: Comment on above: PATIENT NOT FASTINGP ERFORMED BY: CB [facility] Icwmsf7400 [address] RoadDublin [place] [id number] Calcium [Mass/Vol] 10.0 mg/dL Normal 8.7-10.2 [facility]; [facility] Work Phone: Comment on above: PATIENT NOT FASTINGP ERFORMED BY: CB [facility] Gqbasa8146 [address] RoadDublin [place] [id number] Chloride [Moles/Vol] 99 mmol/L Normal 96-106 [facility] rehensive Internal Medicine; [facility] Work Phone: Comment on above: PATIENT NOT FASTINGP ERFORMED BY: CB [facility] Ydvnpl1010 [address] RoadDublin [place] [id number] CO2 [Moles/Vol] 27 mmol/L Normal 20-29 [facility]; [facility] Work Phone: Comment on above: PATIENT NOT FASTINGP ERFORMED BY: CB [facility] Bjrwjn9705 [address] RoadDublin [place] [id number] Creatinine [Mass/Vol] 1.02 mg/dL Normal 0.76-1.27 [facility]; [facility] Work Phone: Comment on above: PATIENT NOT FASTINGP ERFORMED BY: [facility] Taencl1815 [address] RoadCrawley Memorial Hospitalin [place] [id number] GFR/1.73 sq M.predicted among non-blacks MDRD (S/P/Bld) [Vol rate/Area] 86 mL/min/{1.73_m2} Normal Comprehensiv e Internal Medicine; [facility] Work Phone: Comment on above: PATIENT NOT FASTINGP ERFORMED BY: SHERLY [facility] Spqkxh9124 [address] RoadDublin [place] [id number] Globulin (S) [Mass/Vol] 2.2 g/dL Normal 1.5-4.5 [facility]; [facility] Work Phone: Comment on above: PATIENT NOT FASTINGP ERFORMED BY: CB [facility] Hctyzr7584 [address] RoadDublin [place] [id number] Glucose [Mass/Vol] 157 mg/dL Abnormal 70-99 [facility]; [facility] Work Phone: Comment on above: PATIENT NOT FASTINGP ERFORMED BY: CB [facility] Rekxpf1834 [address] RoadDublin [place] [id number] Potassium [Moles/Vol] 4.6 mmol/L Normal 3.5-5.2 [facility] prehensive Internal Medicine; [facility] Work Phone: Comment on above: PATIENT NOT FASTINGP ERFORMED BY: SHERLY [facility] Cxtkzv4464 [address] RoadDublin [place] [id number] Protein [Mass/Vol] 6.4 g/dL Normal 6.0-8.5 [facility]; [facility] Work Phone: Comment on above: PATIENT NOT FASTINGP ERFORMED BY: CB [facility] Jgidwu3245 [address] RoadDublin [place] [id number] Sodium [Moles/Vol] 137 mmol/L Normal 134-144 [facility]; [facility] Work Phone: Comment on above: PATIENT NOT FASTINGP ERFORMED BY: SHERLY Labsaroj Maafha5417 [address] RoadDublin [place] [id number] Urea nitrogen [Mass/Vol] 17 mg/dL Normal 6-24 [facility]; [facility] Work Phone: Comment on above: PATIENT NOT FASTINGP ERFORMED BY: SHERLY [facility] Ubfmom6643 [address] RoadDublin [place] [id number] Urea nitrogen/Creatinine [Mass ratio] 17 mg/mg Normal 9-20 [facility]; [facility] Work Phone: Comment on above: PATIENT NOT FASTINGP ERFORMED BY: SHERLY [facility] Wueisz8523 [address] RoadDublin [place] [id number] TSH ([id number])Ordered By: Silvia m Allergy And Immunology Specialist on 09-12-2022 TSH Qn 0.260 {uIU/mL} Abnormal 0.450-4.50 0 [facility]; [facility] Work Phone: Comment on above: PATIENT NOT FASTINGP ERFORMED BY: CB [facility] Ymowgk4025 [address] RoadDublin [place] [id number] Vitamin D Hydroxy (35092)Ord ered By: Clinical Operations Manager on 09-12-2022 25-hydroxyvitamin D [Mass/Vol] 63.4 ng/mL Normal 30.0-100.0 [facility]; [facility] Work Phone: Comment on above: Vitamin D deficiency has been defined by the [place] ofMedicine and an Endocrine Society practice guideline as alevel of serum 25-OH vitamin D less than 20 ng/mL (1,2).The Endocrine Society went on to further define vitamin Dinsufficiency as a level between 21 and 29 ng/mL (2).1. IOM ([place] of Medicine). 2010. Dietary reference intakes for calcium and D. [place]: The National Academies Press.2. Herminio MF, Sima RAMIREZ, Aurelio GRIGGS, et al. Evaluation, treatment, and prevention of vitamin D deficiency: an Endocrine Society clinical practice guideline. JCEM. 2010; 96(7):1911-30. PATIENT NOT FASTINGP ERFORMED BY: SHERLY [facility] Yrvkqg0358 [facility] [id number] Office Visiton 08-09-2022 Follow-up visit [id number] Jacqueline Padron 1965 M Date Provider Department Center 08/09/2022 [id number] [facility] JEMAL None No family history on file Level of Service:72451 CO OFFICE/OUTPATIENT NEW HIGH MDM 60-74 MINUTES Reason for Visit and Comments: New Patient [542] Numbness [75] Normal [facility] Progress Noteon 08-09-2022 Progress Note [facility] NEUROSCIENCE [address] [facility] [address] Dept: [phone] Dept Loc: [phone] Nadya Waddell MD CHIEF COMPLAINT: Chief Complaint Patient presents with New Patient Numbness HISTORY OF PRESENT ILLNESS: The patient is a 57 y.o. person who presents with pain in the legs. He reports that he started having the pain after COVID in January of 2021. He reports that he did not have pneumonia and did not have to be in the hospital. He reports that he has pain that refers from the lower back to the buttocks and in to the back of the knees. He is also having weakness. Driving and sitting makes the pain and discomfort worse. Only lying down brings him relief. The weakness bothers him greatly. He denies falling. He has trouble going up and down steps is difficult. He reports that everything is complicated by arthritis in his knees as well. He reports that shots from pain management were not successful. PT did not help him either. He and I reviewed the seizure from 2019. It has not happened again. He denies alcohol. Past Medical History: has a past medical history of Diabetes (HCC) and Hypertension. Past Surgical History: has no past surgical history on file. Medications: Current Outpatient Medications: finasteride (Propecia) 1 MG tablet, , Disp: , Rfl: insulin glargine (Lantus SoloStar) 100 UNIT/ML pen, 18 Units daily., Disp: , Rfl: insulin lispro (HumaLOG) 100 UNIT/ML injection, , Disp: , Rfl: lisinopril 2.5 MG tablet, , Disp: , Rfl: omeprazole (PriLOSEC) [address] capsule, , Disp: , Rfl: rosuvastatin (Crestor) 10 MG tablet, , Disp: , Rfl: sildenafil (Viagra) 100 MG tablet, 1 (one) Tablet as needed prior to intercourse, Disp: , Rfl: Synthroid 175 MCG tablet, , Disp: , Rfl: tadalafil (Cialis) 5 MG tablet, Take 5 mg by mouth daily., Disp: , Rfl: Medication Dispense History (from 08/09/2021 to 08/09/2022) Expand All Collapse All Azithromycin Clotrimazole Continuous Blood Gluc Sensor Diclofenac Sodium Famotidine Finasteride Fluconazole HYDROcodone-Acetaminophen Insulin Glargine Insulin Lispro Levothyroxine Sodium Lidocaine HCl Lisinopril Metoprolol Succinate Omeprazole Ondansetron Rosuvastatin Calcium Sildenafil Citrate Tadalafil Other predniSONE prednisoLONE Filled Written Sold ID Drug QTY Days Prescriber RX # Dispenser Refill Daily Dose* Pymt Type COMPUTER AIDED DRAFTER 01/07/2022 01/07/2022 1 Hydrocodone-Acetamin 5-325 Mg 10.00 2 Re Samina [id number] [facility] (8079) 0 25.00 MME [place] 05/31/2021 05/31/2021 1 Gabapentin 100 Mg Capsule 180.00 30 De Fas [id number] [facility] (3354) 0 Comm [place] Allergies: Patient has no known allergies. Social History: Social History Socioeconomic History Marital status: Spouse name: Not on file Number of children: Not on file Years of education: Not on file Highest education level: Not on file Occupational History Not on file Tobacco Use Smoking status: Never Smokeless tobacco: Never Substance and Sexual Activity Alcohol use: Not on file Drug use: Not on file Sexual activity: Not on file Other Topics Concern Not on file Social History Narrative Not on file Social Determinants of Health Financial Resource Strain: Not on file Food Insecurity: Not on file Transportation Needs: Not on file Physical Activity: Not on file Stress: Not on file Social Connections: Not on file Intimate Partner Violence: Not on file Housing Stability: Not on file Family History: No family history on file. REVIEW OF SYSTEMS: Review of Systems Constitutional: Negative for appetite change, chills, diaphoresis, fever and unexpected weight change. HENT: Negative for dental problem and mouth sores. Eyes: Negative for discharge and itching. Respiratory: Negative for chest tightness. Cardiovascular: Negative for chest pain and leg swelling. Gastrointestinal: Negative for rectal pain and vomiting. Endocrine: Negative for polydipsia, polyphagia and polyuria. Genitourinary: Negative for decreased urine volume, flank pain and genital sores. Musculoskeletal: Negative for arthralgias. Skin: Negative for color change. Allergic/Immunologic: Negative for food allergies and immunocompromised state. Neurological: Positive for weakness. Hematological: Negative for adenopathy. Does not bruise/bleed easily. Psychiatric/Behavioral: Negative for agitation, behavioral problems, decreased concentration, sleep disturbance and suicidal ideas. PHYSICAL EXAM: Vitals: BP 137/86 (BP Location: Right arm) Pulse 89 Wt 179 lb (81.2 kg) General Appearance: Patient is in no apparent distress. Head is normocephalic, atraumatic Cardiovascular: Regular rate and rhythm. No heart murmurs. No carotid bruit Neurologic: MOCA-b ( Mentation: Alert and oriented x [address], [address] and time. Speech and Language: Speech and langua (more content not included)... Normal [facility] CBC W/AUTO DIFF WBC (00270)O rdered By: Clinical Operations Manager on 06-29-2022 Basophils (Bld) [#/Vol] 0.0 10*3/uL Normal 0.0-0.2 [facility]; [facility] Work Phone: Comment on above: PATIENT WAS FASTINGP ERFORMED BY: SHERLY [facility] Rwhkqt0059 [place] [id number] Basophils/100 WBC (Bld) 1 % Normal [facility]; [facility] Work Phone: Comment on above: PATIENT WAS FASTINGP ERFORMED BY: SHERLY Sergio Zkcdxc4146 [facility] [id number] Eosinophils (Bld) [#/Vol] 0.2 10*3/uL Normal 0.0-0.4 [facility]; [facility] Work Phone: Comment on above: PATIENT WAS FASTINGP ERFORMED BY: SHERLY [facility] Qeuzxd8155 [facility] [id number] Eosinophils/100 WBC (Bld) 4 % Normal [facility]; [facility] Work Phone: Comment on above: PATIENT WAS FASTINGP ERFORMED BY: SHERLY [facility] Lepqbo7522 [facility] [id number] Erythrocyte distribution width (RBC) [Ratio] 12.2 % Normal 11.6-15.4 [facility]; [facility] Work Phone: Comment on above: PATIENT WAS FASTINGP ERFORMED BY: SHERLY [facility] Zkcctl8263 [facility] [id number] Hematocrit (Bld) [Volume fraction] 47.2 % Normal 37.5-51.0 [facility]; [facility] Work Phone: Comment on above: PATIENT WAS FASTINGP ERFORMED BY: [facility] Zdvubq0933 [facility] [id number] Hemoglobin (Bld) [Mass/Vol] 15.8 g/dL Normal 13.0-17.7 [facility]; [facility] Work Phone: Comment on above: PATIENT WAS FASTINGP ERFORMED BY: [facility] Ohgmvm2530 [facility] [id number] Immature granulocytes (Bld) [#/Vol] 0.0 10*3/uL Normal 0.0-0.1 [facility]; [facility] Work Phone: Comment on above: PATIENT WAS FASTINGP ERFORMED BY: [facility]6370 [facility] [id number] Immature granulocytes/100 WBC (Bld) 0 % Normal [facility]; [facility] Work Phone: Comment on above: PATIENT WAS FASTINGP ERFORMED BY: [facility]6370 [facility] [id number] Lymphocytes (Bld) [#/Vol] 0.9 10*3/uL Normal 0.7-3.1 [facility]; [facility] Work Phone: Comment on above: PATIENT WAS FASTINGP ERFORMED BY: [place] [id number] [facility] [id number] Lymphocytes/100 WBC (Bld) 20 % Normal [facility]; [facility] Work Phone: Comment on above: PATIENT WAS FASTINGP ERFORMED BY: [place] [id number] [facility] [id number] MCH (RBC) [Entitic mass] 31.4 pg Normal 26.6-33.0 [facility]; [facility] Work Phone: Comment on above: PATIENT WAS FASTINGP ERFORMED BY: [facility]6370 [facility] [id number] MCHC (RBC) [Mass/Vol] 33.5 g/dL Normal 31.5-35.7 [facility] prehensive Internal Medicine; [facility] Work Phone: Comment on above: PATIENT WAS FASTINGP ERFORMED BY: [facility]6370 [facility] [id number] MCV (RBC) [Entitic vol] 94 fL Normal 79-97 [facility]; [facility] Work Phone: Comment on above: PATIENT WAS FASTINGP ERFORMED BY: [facility]6370 [facility] [id number] Monocytes (Bld) [#/Vol] 0.3 10*3/uL Normal 0.1-0.9 [facility]; [facility] Work Phone: Comment on above: PATIENT WAS FASTINGP ERFORMED BY: SHERLY [facility] Ptchqt9625 [address] RoadDublin [place] [id number] Monocytes/100 WBC (Bld) 7 % Normal [facility]; [facility] Work Phone: Comment on above: PATIENT WAS FASTINGP ERFORMED BY: SHERLY [facility] Tueybg9817 [address] RoadDublin [place] [id number] Neutrophils (Bld) [#/Vol] 3.1 10*3/uL Normal 1.4-7.0 [facility]; [facility] Work Phone: Comment on above: PATIENT WAS FASTINGP ERFORMED BY: SHERLY [facility] Oldrtm4922 [address] RoadDublin [place] [id number] Neutrophils/100 WBC (Bld) 68 % Normal [facility]; [facility] Work Phone: Comment on above: PATIENT WAS FASTINGP ERFORMED BY: SHERLY [facility] Zluawf2440 [address] RoadDublin [place] [id number] Platelets (Bld) [#/Vol] 315 10*3/uL Normal 150-450 [facility]; [facility] Work Phone: Comment on above: PATIENT WAS FASTINGP ERFORMED BY: SHERLY [facility] Ejzkyd9621 [address] RoadDublin [place] [id number] RBC (Bld) [#/Vol] 5.03 10*6/uL Normal 4.14-5.80 Compr ehensive Internal Medicine; [facility] Work Phone: Comment on above: PATIENT WAS FASTINGP ERFORMED BY: CB [facility] Wwntxd4038 [address] RoadDublin [place] [id number] WBC (Bld) [#/Vol] 4.5 10*3/uL Normal 3.4-10.8 Compre [facility]; [facility] Work Phone: Comment on above: PATIENT WAS FASTINGP ERFORMED BY: CB [facility] Jxigki5604 [address] RoadDublin [place] [id number] Celiac Disease Comphrehensiv e Profile ([id number])Ordered By: Clinical Operations Manager on 06-29-2022 Endomysium IgA Ql (S) Negative Normal Com prehensive Internal Medicine; [facility] Work Phone: Comment on above: PATIENT WAS FASTINGP ERFORMED BY: SHERLY Otoole6370 [facility] [id number] Gliadin peptide IgA Qn (S) 4 {units} Normal 0-19 [facility]; [facility] Work Phone: Comment on above: Negative 0 - 19 Weak Positive 20 - 30 Moderate to Strong Positive >30 PATIENT WAS FASTINGP ERFORMED BY: SHERLY Barbourlin[address] [facility] [id number] Gliadin peptide IgG Qn (S) 6 {units} Normal 0-19 [facility]; [facility] Work Phone: Comment on above: Negative 0 - 19 Weak Positive 20 - 30 Moderate to Strong Positive >30 PATIENT WAS FASTINGP ERFORMED BY: SHERLY Alexa Otoole6370 [facility] [id number] IgA [Mass/Vol] 126 mg/dL Normal 90-386 Comprehens [facility]; [facility] Work Phone: Comment on above: PATIENT WAS FASTINGP ERFORMED BY: SHERLY Alexa Barbourlin6370 [facility] [id number] tTG IgA Qn (S) <2 Normal 0-3 Comprehens [facility]; [facility] Work Phone: Comment on above: Negative 0 - 3 Weak Positive 4 - 10 Positive >10 . Tissue Transglutaminase (tTG) has been identified as the endomysial antigen. Studies have demonstr- ated that endomysial IgA antibodies have over 99% specificity for gluten sensitive enteropathy. PATIENT WAS FASTINGP ERFORMED BY: SHERLY LabEyeona Vlgrlc7806 [facility] [id number] tTG IgG Qn (S) <2 Normal 0-5 Comprehens [facility]; [facility] Work Phone: Comment on above: Negative 0 - 5 Weak Positive 6 - 9 Positive >9 PATIENT WAS FASTINGP ERFORMED BY: [facility] Zdowqe5901 [facility] [id number] FREE TRIIDOTHYRONINE (T3) (8 2436)Ordered By: Clinical Operations Manager on 06-29-2022 Free T3 [Mass/Vol] 3.1 pg/mL Normal 2.0-4.4 [facility]; [facility] Work Phone: Comment on above: PATIENT WAS FASTINGP ERFORMED BY: SHERLY [facility] Sfawyi9187 [address] RoadDublin [place] [id number] METABOLIC PANEL, COMPREHENSI VE (80700)Ordered By: Clinical Operations Manager on 06-29-2022 Albumin [Mass/Vol] 4.1 g/dL Normal 3.8-4.9 [facility]; [facility] Work Phone: Comment on above: PATIENT WAS FASTINGP ERFORMED BY: SHERLY [facility] Dtamgq3032 Martinez Roadblin [place] [id number]; wellness labs Albumin/Globulin [Mass ratio] 1.7 {ratio} Normal 1.2-2.2 [facility]; [facility] Work Phone: Comment on above: PATIENT WAS FASTINGP ERFORMED BY: SHERLY [facility] Ldrqtl1713 [address] RoadDublin [place] [id number]; wellness labs ALP [Catalytic activity/Vol] 65 U/L Normal 44-121 [facility]; [facility] Work Phone: Comment on above: PATIENT WAS FASTINGP ERFORMED BY: SHERLY [facility] Fefhdi4825 Martinez RoadDublin [place] [id number]; wellness labs ALT [Catalytic activity/Vol] 18 U/L Normal 0-44 [facility]; [facility] Work Phone: Comment on above: PATIENT WAS FASTINGP ERFORMED BY: CB [facility] Jyqonh4540 [address] RoadDublin [place] [id number]; wellness labs AST [Catalytic activity/Vol] 22 U/L Normal 0-40 [facility]; [facility] Work Phone: Comment on above: PATIENT WAS FASTINGP ERFORMED BY: CB [facility] Murhtd7117 [address] RoadDublin [place] [id number]; wellness labs Bilirubin [Mass/Vol] 0.7 mg/dL Normal 0.0-1.2 [facility] rehensive Internal Medicine; [facility] Work Phone: Comment on above: PATIENT WAS FASTINGP ERFORMED BY: CB [facility] Sazwof2660 [address] RoadNov[facility] [id number]; wellness labs Calcium [Mass/Vol] 9.9 mg/dL Normal 8.7-10.2 [facility]; [facility] Work Phone: Comment on above: PATIENT WAS FASTINGP ERFORMED BY: CB [facility] Jlbbdp3183 [address] [facility] [id number]; wellness labs Chloride [Moles/Vol] 99 mmol/L Normal 96-106 [facility]; [facility] Work Phone: Comment on above: PATIENT WAS FASTINGP ERFORMED BY: CB [facility] Ivwwlh2894 [address] [facility] [id number]; wellness labs CO2 [Moles/Vol] 25 mmol/L Normal 20-29 [facility]; [facility] Work Phone: Comment on above: PATIENT WAS FASTINGP ERFORMED BY: CB [facility] Fulvfm0681 [address] [facility] [id number]; wellness labs Creatinine [Mass/Vol] 1.14 mg/dL Normal 0.76-1.27 [facility]; [facility] Work Phone: Comment on above: PATIENT WAS FASTINGP ERFORMED BY: CB [facility] Ugohgm1748 [address] [facility] [id number]; wellness labs GFR/1.73 sq M.predicted among non-blacks MDRD (S/P/Bld) [Vol rate/Area] 75 mL/min/{1.73_m2} Normal Comprehensiv e Internal Medicine; [facility] Work Phone: Comment on above: PATIENT WAS FASTINGP ERFORMED BY: CB [facility] Whyavg8423 [address] [facility] [id number]; wellness labs Globulin (S) [Mass/Vol] 2.4 g/dL Normal 1.5-4.5 [facility]; [facility] Work Phone: Comment on above: PATIENT WAS FASTINGP ERFORMED BY: SHERLY [facility] Ralihz8326 Martinez RoadCrawley Memorial Hospitalin [place] [id number]; wellness labs Glucose [Mass/Vol] 219 mg/dL Abnormal 70-99 [facility]; [facility] Work Phone: Comment on above: PATIENT WAS FASTINGP ERFORMED BY: CB [facility] Lvanre0231 [address] [facility] [place] [id number]; wellness labs Potassium [Moles/Vol] 4.6 mmol/L Normal 3.5-5.2 [email or web address] Internal Medicine; [facility] Work Phone: Comment on above: PATIENT WAS FASTINGP ERFORMED BY: SHERLY [facility] Kdpcwy8067 Martinez RoadWahkiacus [place] [id number]; wellness labs Protein [Mass/Vol] 6.5 g/dL Normal 6.0-8.5 [facility]; [facility] Work Phone: Comment on above: PATIENT WAS FASTINGP ERFORMED BY: SHERLY [facility] Wnszvo2777 [address] [facility]in [place] [id number]; wellness labs Sodium [Moles/Vol] 136 mmol/L Normal 134-144 [facility]; [facility] Work Phone: Comment on above: PATIENT WAS FASTINGP ERFORMED BY: SHERLY [facility] Kymjfn3293 [address] [facility] [place] [id number]; wellness labs Urea nitrogen [Mass/Vol] 21 mg/dL Normal 6-24 [facility]; [facility] Work Phone: Comment on above: PATIENT WAS FASTINGP ERFORMED BY: SHERLY [facility] Qucxxm5069 [address] [facility] [place] [id number]; wellness labs Urea nitrogen/Creatinine [Mass ratio] 18 mg/mg Normal 9-20 [facility]; [facility] Work Phone: Comment on above: PATIENT WAS FASTINGP ERFORMED BY: SHERLY [facility] Zurnzv8224 [address] [facility] [place] [id number]; wellness labs MICROALBUMINOrdered By: [employer] em Allergy And Immunology Specialist on 06-29-2022 Albumin DL <= 20 mg/L (U) [Mass/Vol] 11.7 ug/mL Normal [facility]; [facility] Work Phone: Comment on above: PATIENT WAS FASTINGP ERFORMED BY: [employer] Scxwqr7696 [address] [employer])[facility] [id number] Albumin/Creatinine (U) [Mass ratio] 8 {mg/g_creat} Normal 0-29 [facility]; [facility] Work Phone: Comment on above: Normal: 0 - 29 Moder ately increased: 30 - 300 Severely increased: >300 PATIENT WAS FASTINGP ERFORMED BY: [employer]6370 Docea PowerCone [facility] Women[facility] Hospital [id number] Creatinine (U) [Mass/Vol] 156.0 mg/dL Normal [facility]; [facility] Work Phone: Comment on above: PATIENT WAS FASTINGP ERFORMED BY: [employer]6370 [address] [employer])[facility] [id number] PSA (PROSTATE SPECIFIC ANTIG EN) (V76.44)Ordered By: Clinical Operations Manager on 06-29-2022 Prostate specific Ag [Mass/Vol] 0.2 ng/mL Normal 0.0-4.0 [facility]; [facility] Work Phone: Comment on above: Donato ECLIA methodol ogy. .According to the [place] [employer], Serum PSA shoulddecrease and remain at undetectable levels after radicalprostatectomy. The AUA defines biochemical recurrence as an initialPSA value 0.2 ng/mL or greater followed by a subsequent confirmatoryPSA value 0.2 ng/mL or greater.Values obtained with different assay methods or kits cannot be usedinterchangeably. Results cannot be interpreted as absolute evidenceof the presence or absence of malignant disease. PATIENT WAS FASTINGP ERFORMED BY: Worldslin6370 MartinezP[facility] [id number] T4, FREE (THYROXINE) (89411) Ordered By: Clinical Operations Manager on 06-29-2022 Free T4 [Mass/Vol] 1.63 ng/dL Normal 0.82-1.77 Compre hensive Internal Medicine; [facility] Work Phone: Comment on above: PATIENT WAS FASTINGP ERFORMED BY: [employer] 360 Xktszu6065 [address] [employer] ([employer])[facility] [id number] VITAMIN B12 AND FOLATES (826 07)Ordered By: Clinical Operations Manager on 06-29-2022 Cobalamin (Vitamin B12) [Mass/Vol] 955 pg/mL Normal 232-1245 [facility]; [facility] Work Phone: Comment on above: PATIENT WAS FASTINGP ERFORMED BY: [employer] 360 Tzneze1485 [place] [employer])[facility] [id number] Folate [Mass/Vol] 19.1 ng/mL Normal Compreh ensive Internal Medicine; [facility] Work Phone: Comment on above: A serum folate angela ntration of less than 3.1 ng/mL isconsidered to represent clinical deficiency. PATIENT WAS FASTINGP ERFORMED BY: [employer] 360 Yxlwkv7056 [place] [employer])[facility] [id number] 36on 06-01-2022 36 Pt scheduled. Normal [facility] 36 Name of caller: Micky gao Contact phone number: [phone] Relationship to Patient: patient Provider: Dr. Waddell Practice: Neurology, [place] Chief Complaint/Reason for Call: Darrius states he would like a call back to ar scheduled for a SDE appointment. Darrius states his PCP, Dr. Estuardo Jimenez faxed his referral to the office a while ago; however, [facility] cannot access the old [facility] to access the patient's referral. Darrius states his contacted the office a few days ago to confirm receipt of his referral. Please contact Darrius and advise. Best time of day caller can be reached: Any Patient advised that office/PCP has 24-48 business hours to return their call: No Normal [employer] [facility] Inhouse FLU A+B DIRECT AG, ( RAPID) ([id number])Ordered By: Julio Padron on 05-15-2022 FLUAV+FLUBV Ag Ql (Unsp spec) Negative Normal [facility]; [facility] Work Phone: URINE STEPHEN CULTURE-IDENTIFICA TN (28071)Ordered By: Clinical Operations Manager on 04-09-2022 Bacteria identified Cx Nom (U) Final report Normal [facility]; [facility] Work Phone: Comment on above: PATIENT NOT FASTINGP ERFORMED BY: [facility] Sqqqpq3484 [facility] TechnologiesCentral State Hospital [id number] Information: SRC:UC Bacteria identified Cx Nom (U) MUG Normal [facility]; [facility] Work Phone: Comment on above: Mixed urogenital beni ra1,000 Colonies/mL PATIENT NOT FASTINGP ERFORMED BY: CB [facility] Jrgpuq3776 YFind TechnologiesCentral State Hospital [id number] Information: SRC: Urinalysis, Office (57065)Or dered By: Tiffani Mustafa on 04-09-2022 Bilirubin Ql (U) Negative Normal Comprehe nsive Internal Medicine; [facility] Work Phone: Glucose Test strip (U) [Mass/Vol] Negative Normal [facility]; [facility] Work Phone: Hemoglobin Ql (U) Negative Normal Compreh ensive Internal Medicine; [facility] Work Phone: Ketones Ql (U) Negative Normal Comprehens [facility]; [facility] Work Phone: Leukocyte esterase Test strip Ql (U) Negative Normal [facility]; [facility] Work Phone: Nitrite Ql (U) Negative Normal Comprehens [facility]; [facility] Work Phone: pH (U) 5 [pH] Abnormal [facility]; [facility] Work Phone: Protein Ql (U) ++ Abnormal Comprehens [facility]; [facility] Work Phone: Specific gravity (U) [Rel density] 1.030 1 Abnormal [facility]; [facility] Work Phone: Urobilinogen (24H U) [Mass/Time] Normal Normal [facility]; [facility] Work Phone: Calprotectin, Fecal (84489)O rdered By: Clinical Operations Manager on 03-30-2022 Calprotectin, Fecal (86116) 338 ug/g Abnormal 0-120 [facility]; [facility] Work Phone: Comment on above: Concentration Interp retation Follow-Up<16 - 50 ug/g Normal None>50 -120 ug/g Borderline Re-evaluate in 4-6 weeks >120 ug/g Abnormal Repeat as clinically indicated PATIENT NOT FASTINGP ERFORMED BY: Olive Loom[address] [id number] LAYLA (ANTINUCLEAR ANTIBODY) ( 01889)Ordered By: Clinical Operations Manager on 03-29-2022 Nuclear Ab Ql (S) Negative Normal Compreh ensive Internal Medicine; [facility] Work Phone: Comment on above: PATIENT NOT FASTINGP ERFORMED BY: [facility]70 Docea PowerC[facility] Hospital [id number] BY: Olive Loomton1447 [facility] [id number] STEPHEN CULTURE-OTHER (45506)Ord ered By: Clinical Operations Manager on 03-29-2022 Bacteria identified Respiratory culture Nom (Unsp spec) Final report Normal [facility]; [facility] Work Phone: Comment on above: PATIENT NOT FASTINGP ERFORMED BY: [employer] Hcclhe1537 Docea PowerCone Health Women[facility] Hospital [id number] Information: SRC:TH Bacteria identified Respiratory culture Nom (Unsp spec) RRF Normal [facility]; [facility] Work Phone: Comment on above: Routine respiratory aparna PATIENT NOT FASTINGP ERFORMED BY: [employer] Ctdvkg8063 Docea PowerCone Health Women's Hospital [id number] Information: SRC:TH C-Reactive Protein (13069)Or dered By: Clinical Operations Manager on 03-29-2022 CRP [Mass/Vol] 3 mg/L Normal 0-10 Comprehens [facility]; [facility] Work Phone: Comment on above: PATIENT NOT FASTINGP ERFORMED BY: [facility]70 [facility] [id number] COMPLEMENT C4 (05475)Ordered By: Clinical Operations Manager on 03-29-2022 Complement C4 [Mass/Vol] 16 mg/dL Normal 12-38 [facility]; [facility] Work Phone: Comment on above: PATIENT NOT FASTINGP ERFORMED BY: CB [facility] Ziieou8376 [facility] [id number] BY: Lab[address] [id number] SPEP (35591)Ordered By: Syst em Allergy And Immunology Specialist on 03-29-2022 Albumin [Mass/Vol] 3.3 g/dL Normal 2.9-4.4 [facility]; [facility] Work Phone: Comment on above: PATIENT NOT FASTINGP ERFORMED BY: [facility] Dpojvf0314 [facility] [id number] BY: [employer] [address] [id number] Albumin/Globulin [Mass ratio] 1.2 {ratio} Normal 0.7-1.7 [facility]; [facility] Work Phone: Comment on above: PATIENT NOT FASTINGP ERFORMED BY: CB [facility] Bmhwbt3904 [facility] [id number] BY: Lab[address] [id number] Alpha 1 globulin Elph [Mass/Vol] 0.3 g/dL Normal 0.0-0.4 [facility]; [facility] Work Phone: Comment on above: PATIENT NOT FASTINGP ERFORMED BY: CB [facility] Bvouhy8819 [facility] [id number] BY: Lab[address] [id number] Alpha 2 globulin Elph [Mass/Vol] 0.6 g/dL Normal 0.4-1.0 [facility]; [facility] Work Phone: Comment on above: PATIENT NOT FASTINGP ERFORMED BY: [facility] Thjiei5484 [facility] [id number] BY: [address] [id number] Beta globulin Elph [Mass/Vol] 0.8 g/dL Normal 0.7-1.3 [facility]; [facility] Work Phone: Comment on above: PATIENT NOT FASTINGP ERFORMED BY: [facility] Vvmmak7250 [facility] [id number] BY: [address] [id number] Gamma globulin Elph [Mass/Vol] 1.0 g/dL Normal 0.4-1.8 [facility]; [facility] Work Phone: Comment on above: PATIENT NOT FASTINGP ERFORMED BY: [facility] Qqeqrh1118 [facility] [id number] BY: [address] [id number] Globulin (S) [Mass/Vol] 2.7 g/dL Normal 2.2-3.9 [facility]; [facility] Work Phone: Comment on above: PATIENT NOT FASTINGP ERFORMED BY: [facility] Idygou2365 [facility] [id number] BY: [address] [id number] Laboratory comment Yusef (Report) [facility] Normal [facility]; [facility] Work Phone: Comment on above: Protein electrophore sis scan will follow via computer, mail, orcourier delivery. PATIENT NOT FASTINGP ERFORMED BY: [facility] Rxfriw7786 [facility] [id number] BY: [address] [id number] Laboratory report . Normal Compreh ensive Internal Medicine; [facility] Work Phone: Comment on above: PATIENT NOT FASTINGP ERFORMED BY: CB [facility] Dllnhn2730 Martinez RoadDublin [place] [id number] BY: Lab[address] [id number] Protein [Mass/Vol] 6.0 g/dL Normal 6.0-8.5 [facility]; [facility] Work Phone: Comment on above: PATIENT NOT FASTINGP ERFORMED BY: CB [facility] Utishe2345 Martinez RoadDublin [place] [id number] BY: Labco[address] [id number] Protein.monoclonal Elph [Mass/Vol] Not Observed Normal [facility]; [facility] Work Phone: Comment on above: PATIENT NOT FASTINGP ERFORMED BY: CB [facility] Uekatn4089 Martinez RoadDublin [place] [id number] BY: Lab[address] [id number] Sed Rate Erythrocyte (15865) Ordered By: Clinical Operations Manager on 03-29-2022 ESR (Bld) [Velocity] 2 mm/h Normal 0-30 Comp [facility] centerens[facility]; [facility] Work Phone: Comment on above: PATIENT NOT FASTINGP ERFORMED BY: CB [facility] Ggjjkh1703 [address] RoadDublin [place] [id number] Systemic Lupus Profile (8623 5)Ordered By: Clinical Operations Manager on 03-29-2022 Chromatin Ab Qn <0.2 Normal 0.0-0.9 [facility] Internal Medicine; [facility] Work Phone: Comment on above: PATIENT NOT FASTINGP ERFORMED BY: CB [facility] Ftnwxi4328 [address] RoadDublin [place] [id number] DNA double strand Ab Qn (S) 1 [IU]/mL Normal 0-9 [facility]; [facility] Work Phone: Comment on above: Negative <5 Equivoca l 5 - 9 Positive >9 PATIENT NOT FASTINGP ERFORMED BY: CB [facility] Kghkcx5790 [address] RoadDublin [place] [id number] Rheumatoid factor Qn [IU]/mL Normal [facility]; [facility] Work Phone: Comment on above: PATIENT NOT FASTINGP ERFORMED BY: SHERLY [facility] Etgnwv7773 [address] RoadDublin [place] [id number] Ribonucleoprotein extractable nuclear Ab Qn (S) <0.2 Normal 0.0-0.9 [facility]; [facility] Work Phone: Comment on above: PATIENT NOT FASTINGP ERFORMED BY: SHERLY [facility] Rminha0663 [address] RoadDublin [place] [id number] Sjogrens syndrome-A extractable nuclear Ab Qn (S) <0.2 Normal 0.0-0.9 [facility]; [facility] Work Phone: Comment on above: PATIENT NOT FASTINGP ERFORMED BY: SHERLY [facility] Cpkzjl7738 Martinez RoadCrawley Memorial Hospitalin [place] [id number] Sjogrens syndrome-B extractable nuclear Ab Qn (S) <0.2 Normal 0.0-0.9 [facility]; [facility] Work Phone: Comment on above: PATIENT NOT FASTINGP ERFORMED BY: SHERLY [facility] Gcazvl2804 [address] Roadblin [place] [id number] Perry extractable nuclear Ab Qn (S) <0.2 Normal 0.0-0.9 [facility]; [facility] Work Phone: Comment on above: PATIENT NOT FASTINGP ERFORMED BY: [facility] Sluzlw5115 [address] [facility]bl[facility] [place] [id number] TRYPTASE ([id number])Ordered By: Clinical Operations Manager on 03-29-2022 Tryptase [Mass/Vol] 8.5 ug/L Normal 2.2-13.2 [facility]eren[facility]; [facility] Work Phone: Comment on above: PATIENT NOT FASTINGP ERFORMED BY: [facility] Qmyjrn2441 [facility] [id number] BY: [address] [id number] TSH (THYROID STIMULATING HOR LAZARA) (70275)Ordered By: Clinical Operations Manager on 03-29-2022 TSH Qn 0.289 {uIU/mL} Abnormal 0.450-4.50 0 [facility]; [facility] Work Phone: Comment on above: PATIENT NOT FASTINGP ERFORMED BY: CB [facility] Rkevhz7459 [place] [id number] BY: BN [facility] Cridyqznfc5948 [facility] [id number] Absolute lymphocyte counton 03-24-2022 Lymphocytes Auto (Unsp spec) [#/Vol] 0.92 10*3/uL 0.83-4.51 [facility] Work Phone: Basophil percentageon 2021 Basophils/100 WBC (Bld) 0.5 % 0-1 [facility] Work Phone: Bilirubin [Mass/Vol] 0.80 mg/dL 0.20-1.00 [facility] Work Phone: Comment on above: For patients on eltr ombopag therapy, use of Dimension Smyer TBIL is not recommended. Chloride [Moles/Vol] 106 mmol/L 98-107 [facility] Work Phone: Eosinophils/100 WBC (Bld) 7.0 % 0-5 [facility] Work Phone: Glucose [Mass/Vol] 143 mg/dL 74-106 [facility] Work Phone: Comment on above: Fasting Glucose resu lt greater than or equal to 126 mg/dL suggests DIABETES MELLITUS per A.D.A. criteria. Neutrophils (Bld) [#/Vol] 5.2 10*3/uL 2.0-7.7 [facility] Work Phone: Neutrophils/100 WBC (Bld) 70.9 % 47-70 [facility] Work Phone: Potassium [Moles/Vol] 4.3 mmol/L 3.5-5.1 [facility] Work Phone: Protein [Mass/Vol] 7.0 g/dL 6.4-8.2 [facility] Work Phone: Sodium [Moles/Vol] 139 mmol/L 136-145 [facility] Work Phone: WBC (Bld) [#/Vol] 7.3 10*3/uL 4.4-11.0 [facility] Work Phone: Blood erythrocytes count (nu mber/volume)on 03-24-2022 RBC (Bld) [#/Vol] 4.72 10*6/uL 4.6-6.2 [facility] Work Phone: Blood hemoglobin measurement (mass/volume)on 03-24-2022 Hemoglobin (Bld) [Mass/Vol] 15.3 g/dL 13.0-16.5 [facility] Work Phone: Blood lymphocytes/100 leukoc yteson 03-24-2022 Lymphocytes/100 WBC (Bld) 12.6 % 19-41 [facility] Work Phone: Blood monocytes/100 leukocyt eson 03-24-2022 Monocytes/100 WBC (Bld) 8.9 % 0-10 [facility] Work Phone: Blood platelet mean volumeon 03-24-2022 Platelet mean volume (Bld) [Entitic vol] 9.5 fL 6.2-12.0 [facility] Work Phone: Determination of erythrocyte mean corpuscular volume (MCV)on 03-24-2022 MCV (RBC) [Entitic vol] 94.5 fL 80-94 [facility] Work Phone: Erythrocyte sedimentation ra emily 03-24-2022 ESR (Bld) [Velocity] 5 mm/h 0-20 [facility] Work Phone: Hematocrit Auto (Bld) [Volum e fraction]on 03-24-2022 Hematocrit (Bld) [Volume fraction] 44.6 % 40-54 [facility] Work Phone: INR in Blood by Coagulation assayon 03-24-2022 INR Coag (Bld) [Relative time] 1.1 {INR} [facility] Work Phone: Laboratory - Chemistry and C hemistry - challengeon 03-24-2022 ALP [Catalytic activity/Vol] 61 U/L 45-117 [facility] Work Phone: ALT [Catalytic activity/Vol] 35 U/L 16-61 [facility] Work Phone: CO2 [Moles/Vol] 29.0 mmol/L 21.0-32.0 [facility] Work Phone: Globulin (S) [Mass/Vol] 3.6 g/dL 2.2-4.2 [facility] Work Phone: Urea nitrogen/Creatinine [Mass ratio] 15.7 mg/mg 10-20 [facility] Work Phone: Laboratory - Coagulationon 1 aPTT Coag (Bld) [Time] 26.0 s 24.1-36.2 [facility] Work Phone: PT Coag (PPP) [Time] 13.9 s 11.7-14.9 [facility] Work Phone: Laboratory - Hematology and Cell countson 03-24-2022 Erythrocyte distribution width (RBC) [Entitic vol] 44.1 fL 35.1-43.9 [facility] Work Phone: Erythrocyte distribution width (RBC) [Ratio] 12.6 % 11.6-14.6 [facility] Work Phone: Immature granulocytes/100 WBC (Bld) 0.100 % 0.0-0.9 [facility] Work Phone: Comment on above: IG% - Immature Granu locytes (promyelocytes, myelocytes and metamyelocytes) > 1% indicates that a LEFT SHIFT is Present. MCH (RBC) [Entitic mass] 32.4 pg 27.0-32.0 [facility] Work Phone: Nucleated RBC/100 WBC (Bld) [Ratio] 0 % 0-5 [facility] Work Phone: MCHC Auto (RBC) [Mass/Vol]on 03-24-2022 MCHC (RBC) [Mass/Vol] 34.3 g/dL 32-36 [facility] Work Phone: No Panel Informationon 03-24 Estimated Creatinine Clearance Calc 81.06 ml/min [facility] Work Phone: Estimated GFR (MDRD) Amer 84 mL/min >60 [facility] Work Phone: Comment on above: GFR Calc Estimated GFR (MDRD) Non-Af Amer 70 mL/min >60 [facility] Work Phone: Comment on above: Non- GFR Calc Platelets bldon 03-24-2022 Platelets (Bld) [#/Vol] 303 10*3/uL 150-450 [facility] Work Phone: Serum or plasma C reactive p rotein measurement (mass/volume)on 03-24-2022 CRP [Mass/Vol] 8.49 mg/L 0.0-3.0 [facility] Work Phone: Comment on above: C-Reactive Protein ( CRP) provides useful information for thediagnosis, therapy and monitoring of inflammatory processesand associated diseases. For the evaluation of Relative Riskfor Cardiovascular Disease, a High Sensitivity CRP (HSCRP)should be ordered. Serum or plasma albumin gisell urement (mass/volume)on 03-24-2022 Albumin [Mass/Vol] 3.4 g/dL 3.2-5.0 [facility] Work Phone: Serum or plasma albumin/glob ulin mass ratioon 03-24-2022 Albumin/Globulin [Mass ratio] 0.9 {ratio} 0.9-2.4 [facility] Work Phone: Serum or plasma calcium gisell urement (mass/volume)on 03-24-2022 Calcium [Mass/Vol] 9.6 mg/dL 8.5-10.1 [facility] Work Phone: Serum or plasma creatinine m easurement (mass/volume)on 03-24-2022 Creatinine [Mass/Vol] 1.15 mg/dL 0.70-1.30 [facility] Work Phone: Comment on above: The validity of the calculated GFR & GFRAA in patients over 70 years has not been determined. Clinical correlation is essential. Serum or plasma urea nitroge n measurement (mass/volume)on 03-24-2022 Urea nitrogen [Mass/Vol] 18 mg/dL 7-18 [facility] Work Phone: Thin prep Papanicolaou smear with manual screeningon 03-24-2022 Thin prep Papanicolaou smear with manual screening 27 U/L 15-37 [facility] Work Phone: Thin prep Papanicolaou smear with manual screening 4 5-15 [facility] Work Phone: INHOUSE COVID 19 (ONLY) RAPI D ([id number])Ordered By: Julio Padron on 03-08-2022 SARS-CoV-2 (COVID-19) RNA TYSON+probe Ql (Unsp spec) Negative [facility] Work Phone: Absolute lymphocyte counton 02-16-2022 Lymphocytes Auto (Unsp spec) [#/Vol] 1.07 10*3/uL 0.83-4.51 [facility] Work Phone: Basophil percentageon 2021 Basophils/100 WBC (Bld) 0.7 % 0-1 [facility] Work Phone: Bilirubin [Mass/Vol] 1.10 mg/dL 0.20-1.00 [facility] Work Phone: Comment on above: For patients on eltr ombopag therapy, use of Dimension Smyer TBIL is not recommended. Chloride [Moles/Vol] 106 mmol/L 98-107 [facility] Work Phone: Eosinophils/100 WBC (Bld) 4.4 % 0-5 [facility] Work Phone: Glucose [Mass/Vol] 201 mg/dL 74-106 [facility] Work Phone: Comment on above: Glucose result great er than or equal to 200 mg/dLsuggests DIABETES MELLITUS per A.D.A. criteria. Neutrophils (Bld) [#/Vol] 2.7 10*3/uL 2.0-7.7 [facility] Work Phone: Neutrophils/100 WBC (Bld) 61.5 % 47-70 [facility] Work Phone: Potassium [Moles/Vol] 4.5 mmol/L 3.5-5.1 [facility] Work Phone: Protein [Mass/Vol] 6.3 g/dL 6.4-8.2 [facility] Work Phone: Sodium [Moles/Vol] 140 mmol/L 136-145 [facility] Work Phone: WBC (Bld) [#/Vol] 4.4 10*3/uL 4.4-11.0 [facility] Work Phone: Blood erythrocytes count (nu mber/volume)on 02-16-2022 RBC (Bld) [#/Vol] 4.66 10*6/uL 4.6-6.2 [facility] Work Phone: Blood hemoglobin measurement (mass/volume)on 02-16-2022 Hemoglobin (Bld) [Mass/Vol] 14.6 g/dL 13.0-16.5 [facility] Work Phone: Blood lymphocytes/100 leukoc yteson 02-16-2022 Lymphocytes/100 WBC (Bld) 24.5 % 19-41 [facility] Work Phone: Blood monocytes/100 leukocyt eson 02-16-2022 Monocytes/100 WBC (Bld) 8.7 % 0-10 [facility] Work Phone: Blood platelet mean volumeon 02-16-2022 Platelet mean volume (Bld) [Entitic vol] 10.2 fL 6.2-12.0 [facility] Work Phone: Determination of erythrocyte mean corpuscular volume (MCV)on 02-16-2022 MCV (RBC) [Entitic vol] 91.8 fL 80-94 [facility] Work Phone: Hematocrit Auto (Bld) [Volum e fraction]on 02-16-2022 Hematocrit (Bld) [Volume fraction] 42.8 % 40-54 [facility] Work Phone: Laboratory - Chemistry and C hemistry - challengeon 02-16-2022 ALP [Catalytic activity/Vol] 62 U/L 45-117 [facility] Work Phone: ALT [Catalytic activity/Vol] 28 U/L 16-61 [facility] Work Phone: CO2 [Moles/Vol] 29.0 mmol/L 21.0-32.0 [facility] Work Phone: Globulin (S) [Mass/Vol] 2.9 g/dL 2.2-4.2 [facility] Work Phone: Urea nitrogen/Creatinine [Mass ratio] 14.8 mg/mg 10-20 [facility] Work Phone: Laboratory - Hematology and Cell countson 02-16-2022 Erythrocyte distribution width (RBC) [Entitic vol] 41.1 fL 35.1-43.9 [facility] Work Phone: Erythrocyte distribution width (RBC) [Ratio] 12.3 % 11.6-14.6 [facility] Work Phone: Immature granulocytes/100 WBC (Bld) 0.200 % 0.0-0.9 [facility] Work Phone: Comment on above: IG% - Immature Granu locytes (promyelocytes, myelocytes and metamyelocytes) > 1% indicates that a LEFT SHIFT is Present. MCH (RBC) [Entitic mass] 31.3 pg 27.0-32.0 [facility] Work Phone: Nucleated RBC/100 WBC (Bld) [Ratio] 0 % 0-5 [facility] Work Phone: MCHC Auto (RBC) [Mass/Vol]on 02-16-2022 MCHC (RBC) [Mass/Vol] 34.1 g/dL 32-36 [facility] Work Phone: No Panel Informationon 02-16 C-Reactive Protein High Sensitivity 0.73 mg/L <3.00 [facility] Work Phone: Comment on above: Low Relative Risk of CVD <1.0 mg/L Average Relative Risk of CVD 1.0 - 3.0 mg/L High Relative Risk of CVD >3.0 mg/L Estimated GFR (MDRD) Amer 84 mL/min >60 [facility] Work Phone: Comment on above: GFR Calc Estimated GFR (MDRD) Non-Af Amer 70 mL/min >60 [facility] Work Phone: Comment on above: Non- GFR Calc Thyroid Stimulating Hormone (TSH) 0.06 uIU/mL 0.358-3.74 [facility] Work Phone: Vitamin D 25-Hydroxy 89.2 ng/mL [facility] Work Phone: Comment on above: Vitamin D 25(OH) Sta tus Range Deficiency <20 ng/mL (50nmol/L) Insufficiency 20 - 30 ng/mL (50 - 75 nmol/L) Sufficiency 30 - 100 ng/mL (75 - 250 nmol/L) Toxicity >100 ng/mL (>250 nmol/L) Platelets bldon 02-16-2022 Platelets (Bld) [#/Vol] 310 10*3/uL 150-450 [facility] Work Phone: Serum Nikko Caraballo virus cap zohaib IgG antibody assay (units/volume)on 02-16-2022 EBV capsid IgG Qn (S) 239.0 [arb'U]/mL 0.0-17.9 [facility] Work Phone: Comment on above: Negative <18.0 Equiv ocal 18.0 - 21.9 Positive >21.9 Serum Nikko Caraballo virus cap zohaib IgM antibody assay (units/volume)on 02-16-2022 EBV capsid IgM Qn (S) [arb'U]/mL 0.0-35.9 [facility] Work Phone: Comment on above: Negative <36.0 Equiv ocal 36.0 - 43.9 Positive >43.9 Serum Nikko Caraballo virus nuc lear IgG antibody assay (units/volume)on 02-16-2022 EBV nuclear IgG Qn (S) 217.0 U/mL 0.0-17.9 [facility] Work Phone: Comment on above: Negative <18.0 Equiv ocal 18.0 - 21.9 Positive >21.9 Serum or plasma albumin gisell urement (mass/volume)on 02-16-2022 Albumin [Mass/Vol] 3.4 g/dL 3.2-5.0 [facility] Work Phone: Serum or plasma albumin/glob ulin mass ratioon 02-16-2022 Albumin/Globulin [Mass ratio] 1.2 {ratio} 0.9-2.4 [facility] Work Phone: Serum or plasma calcium gisell urement (mass/volume)on 02-16-2022 Calcium [Mass/Vol] 9.3 mg/dL 8.5-10.1 [facility] Work Phone: Serum or plasma creatinine m easurement (mass/volume)on 02-16-2022 Creatinine [Mass/Vol] 1.15 mg/dL 0.70-1.30 [facility] Work Phone: Comment on above: The validity of the calculated GFR & GFRAA in patients over 70 years has not been determined. Clinical correlation is essential. Serum or plasma urea nitroge n measurement (mass/volume)on 02-16-2022 Urea nitrogen [Mass/Vol] 17 mg/dL 7-18 [facility] Work Phone: Thin prep Papanicolaou smear with manual screeningon 02-16-2022 Thin prep Papanicolaou smear with manual screening 25 U/L 15-37 [facility] Work Phone: Thin prep Papanicolaou smear with manual screening 5 5-15 [facility] Work Phone: Thin prep Papanicolaou smear with manual screening Comment . [facility] Work Phone: Comment on above: EBV Interpretation C Roddy: Antibody Present + Antibody Absent -Interpretation VCA-IgM VCA-IgG EBNA-IgGNo previous infection/ - - -SusceptiblePrimary infection (new + + -or recent)Past Infection +or- + +See comment below* + - -*Results indicate infection with EBV at some time however cannot predict the timing of the infection since antibodies to EBNA usually develop after primary infection or, alternatively, approximately 5-10% of patients with EBV never develop antibodies to EBNA.Performed at: [facility] [id number] Director: Shun Ornelas PhD, Phone: [phone] Absolute lymphocyte counton 01-07-2022 Lymphocytes Auto (Unsp spec) [#/Vol] 1.25 10*3/uL 0.83-4.51 [facility] Work Phone: Basophil percentageon 2021 Basophil percentage 0-5 SEEN /hpf 0-5 [facility] Work Phone: Basophils/100 WBC (Bld) 0.6 % 0-1 [facility] Work Phone: Chloride [Moles/Vol] 107 mmol/L 98-107 [facility] Work Phone: Eosinophils/100 WBC (Bld) 3.2 % 0-5 [facility] Work Phone: Glucose [Mass/Vol] 118 mg/dL 74-106 [facility] Work Phone: Comment on above: Fasting Glucose resu lt from 100 to 125 mg/dL suggests IMPAIRED HOMEOSTASIS per A.D.A. criteria. Neutrophils (Bld) [#/Vol] 4.3 10*3/uL 2.0-7.7 [facility] Work Phone: Neutrophils/100 WBC (Bld) 66.9 % 47-70 [facility] Work Phone: Potassium [Moles/Vol] 4.1 mmol/L 3.5-5.1 [facility] Work Phone: Sodium [Moles/Vol] 140 mmol/L 136-145 [facility] Work Phone: WBC (Bld) [#/Vol] 6.5 10*3/uL 4.4-11.0 [facility] Work Phone: Bilirubin Test strip Ql (U)o n 01-07-2022 Bilirubin Ql (U) Negative Negative [facility] Work Phone: Blood erythrocytes count (nu mber/volume)on 01-07-2022 RBC (Bld) [#/Vol] 4.36 10*6/uL 4.6-6.[facility]: Blood hemoglobin measurement (mass/volume)on 01-07-2022 Hemoglobin (Bld) [Mass/Vol] 13.8 g/dL 13.0-16.5 [facility] Work Phone: Blood lymphocytes/100 leukoc yteson 01-07-2022 Lymphocytes/100 WBC (Bld) 19.3 % 19-41 [facility] Work Phone: Blood monocytes/100 leukocyt eson 01-07-2022 Monocytes/100 WBC (Bld) 9.7 % 0-10 [facility] Work Phone: Blood platelet mean volumeon 01-07-2022 Platelet mean volume (Bld) [Entitic vol] 10.0 fL 6.2-12.0 [facility] Work Phone: Determination of erythrocyte mean corpuscular volume (MCV)on 01-07-2022 MCV (RBC) [Entitic vol] 93.3 fL 80-94 [facility] Work Phone: Hematocrit Auto (Bld) [Volum e fraction]on 01-07-2022 Hematocrit (Bld) [Volume fraction] 40.7 % 40-54 [facility] Work Phone: Ketones Test strip Ql (U)on 01-07-2022 Ketones Ql (U) Negative Negative [facility] Work Phone: Laboratory - Chemistry and C hemistry - challengeon 01-07-2022 CO2 [Moles/Vol] 29.0 mmol/L 21.0-32.0 [facility] Work Phone: Urea nitrogen/Creatinine [Mass ratio] 16.3 mg/mg 10-20 [facility] Work Phone: Laboratory - Hematology and Cell countson 01-07-2022 Erythrocyte distribution width (RBC) [Entitic vol] 43.5 fL 35.1-43.9 [facility] Work Phone: Erythrocyte distribution width (RBC) [Ratio] 12.7 % 11.6-14.6 [facility] Work Phone: Immature granulocytes/100 WBC (Bld) 0.300 % 0.0-0.9 [facility] Work Phone: Comment on above: IG% - Immature Granu locytes (promyelocytes, myelocytes and metamyelocytes) > 1% indicates that a LEFT SHIFT is Present. MCH (RBC) [Entitic mass] 31.7 pg 27.0-32.0 [facility] Work Phone: Nucleated RBC/100 WBC (Bld) [Ratio] 0 % 0-5 [facility] Work Phone: MCHC Auto (RBC) [Mass/Vol]on 01-07-2022 MCHC (RBC) [Mass/Vol] 33.9 g/dL 32-36 [facility] Work Phone: Mucus LM Ql (Urine sed)on Mucus Ql (Urine sed) 0 SEEN /hpf [facility] Work Phone: Nitrite Test strip Ql (U)on 01-07-2022 Nitrite Ql (U) Negative Negative [facility] Work Phone: No Panel Informationon 01-07 Estimated Creatinine Clearance Calc 72.26 ml/min [facility] Work Phone: Estimated GFR (MDRD) Amer 74 mL/min >60 [facility] Work Phone: Comment on above: GFR Calc Estimated GFR (MDRD) Non-Af Amer 61 mL/min >60 [facility] Work Phone: Comment on above: Non- GFR Calc Platelets bldon 01-07-2022 Platelets (Bld) [#/Vol] 262 10*3/uL 150-450 [facility] Work Phone: Protein Test strip Ql (U)on 01-07-2022 Protein Ql (U) Negative Negative [facility] Work Phone: Serum or plasma calcium gisell urement (mass/volume)on 01-07-2022 Calcium [Mass/Vol] 9.2 mg/dL 8.5-10.1 [facility] Work Phone: Serum or plasma creatinine m easurement (mass/volume)on 01-07-2022 Creatinine [Mass/Vol] 1.29 mg/dL 0.70-1.30 [facility] Work Phone: Comment on above: The validity of the calculated GFR & GFRAA in patients over 70 years has not been determined. Clinical correlation is essential. Serum or plasma urea nitroge n measurement (mass/volume)on 01-07-2022 Urea nitrogen [Mass/Vol] 21 mg/dL 7-18 [facility] Work Phone: Squamous epithelial cells de tection in urine sediment by light microscopyon 01-07-2022 Epithelial cells.squamous LM Ql (Urine sed) 0-5 SEEN /hpf 0-5 [facility] Work Phone: Thin prep Papanicolaou smear with manual screeningon 01-07-2022 Thin prep Papanicolaou smear with manual screening 4 5-15 [facility] Work Phone: Urine blood detectionon 12-16 RBC Ql (U) 150 /ul Negative [facility] Work Phone: RBC Ql (U) 0-5 SEEN /hpf 0-5 [facility] Work Phone: Urine clarityon 01-07-2022 Clarity (U) Sl. Cloudy Clear [facility] Work Phone: Urine color determinationon 01-07-2022 Color (U) Yellow Yellow [facility] Work Phone: Urine glucose detectionon Glucose Ql (U) Normal mg/dl Normal [facility] Work Phone: Urine leukocyte esterase det ection by dipstickon 01-07-2022 Leukocyte esterase Test strip Ql (U) Negative Negative [facility] Work Phone: Urine pHon 01-07-2022 pH (U) 5.0 [pH] 5.0 - 8.0 [facility] Work Phone: Urine sediment bacteria coun t by microscopy (number/high power field)on 01-07-2022 Bacteria LM.HPF (Urine sed) [#/Area] 0 /[HPF] None Seen [facility] Work Phone: Urine specific gravity measu rementon 01-07-2022 Specific gravity (U) [Rel density] 1.020 1.002-1.03 0 [facility] Work Phone: Urobilinogen Auto test strip Ql (U)on 01-07-2022 Urobilinogen Ql (U) Normal mg/dl Normal [facility] Work Phone: INHOUSE Rapid Covid/ Flu A/ Flu BOrdered By: Julio Padron on 06-01-2021 SARS-CoV-2 (COVID-19) RNA TYSON+probe Ql (Unsp spec) Negative Normal [facility] Work Phone: INHOUSE Rapid Covid/ Flu A/ Flu BOrdered By: Julio Padron on 04-21-2021 SARS-CoV-2 (COVID-19) RNA TYSON+probe Ql (Unsp spec) Positive Normal [facility] Work Phone: Comment on above: covid 19 CPKon 01-03-2020 CPK 92 U/L Normal 39-308 [facility] Comment on above: Performed By: #### M CK #### [facility] [address] [place], [place] [address] CT BRAIN WO IVCONon 01-03-[address] BRAIN WO IVCON Final Report DATE OF EXAM: Jan 03 2020 12:16PM [facility] 0504 - CT BRAIN WO IVCON / PROCEDURE REASON: Seizure, new, nontraumatic, >40 yrs Physician Interpretation EXAMINATION: CT BRAIN WO IVCON CLINICAL HISTORY: Seizure, new, nontraumatic, >40 yrs TECHNIQUE: Serial axial images without IV contrast were obtained from the vertex to the foramen magnum. MQ: CTBWO_[id number] CT Dose-Length Product (DLP): [address] Dose Reduction Employed: No dose reduction techniques were required COMPARISON: None. RESULT: Post-operative change: None. Acute change: No evidence of an acute infarct or other acute parenchymal process. Hemorrhage: No evidence of acute intracranial hemorrhage. Mass Lesion / Mass Effect: There is no evidence of an intracranial mass or extraaxial fluid collection. No significant mass effect. Chronic change: None apparent. Parenchyma: There is no significant volume loss. The brain parenchyma is otherwise within normal limits for age. Ventricles: The ventricles are within normal limits of size and configuration for age. Paranasal sinuses and skull base: The visualized paranasal sinuses are grossly clear. The skull base and imaged soft tissues are unremarkable. Commercial Lending Relationship Manager (topogram) images: Unremarkable. IMPRESSION: Unremarkable noncontrast head CT. Supervisor Beater Room: PSCDeric Transcribe Date/Time: Jan 03 2020 12:29P Dictated by : MARIA M MENDENHALL MD This examination was interpreted and the report reviewed and electronically signed by: MARIA M MENDENHALL MD on Jan 03 2020 12:30PM EST Normal [facility] Comprehensive Panelon 2019 Albumin [Mass/Vol] 3.7 g/dL Normal 3.4-5.0 [facility] Comment on above: Performed By: #### M P14 #### [facility] [address] [place], [place] [address] ALP [Catalytic activity/Vol] 80 U/L Normal 46-116 [facility] Comment on above: Performed By: #### M P14 #### [facility] [address] [place] [address] ALT-SGPT Blood 20 U/L Normal 12-78 [facility] Comment on above: Performed By: #### M P14 #### [facility] [address] [place] [address] Anion gap [Moles/Vol] 14 mmol/L Normal 8-16 [facility] Comment on above: Performed By: #### M P14 #### [facility] [address] [place] [address] AST-SGOT Blood 17 U/L Normal 15-46 [facility] Comment on above: Performed By: #### M P14 #### [facility] [address] [place] [address] Bilirubin Ql (U) 0.6 mg/dL Normal 0.2-1.0 [facility] Comment on above: Result Comment: Use of this assay is not recommended for patients undergoing treatment with eltrombopag due to the potential for falsely elevated results. Performed By: #### M P14 #### [facility] [address] [place] [address] Calcium [Mass/Vol] 10.0 mg/dL Normal 8.5-10.1 [facility] Comment on above: Performed By: #### M P14 #### [facility] [address] [place] [address] Chloride [Moles/Vol] 103 mmol/L Normal 98-107 [facility] Comment on above: Performed By: #### M P14 #### [facility] [address] [place] [address] CO2 Blood 27 mEq/L Normal 21-32 [facility] Comment on above: Performed By: #### M P14 #### [facility] [address] [place] [address] Creatinine [Mass/Vol] 1.28 mg/dL High 0.67-1.17 [facility] Comment on above: Result Comment: Use of this assay is not recommended for patients undergoing treatment with phenindione, due to the potential for falsely depressed results. Performed By: #### M P14 #### [facility] [address] [place], [place] [address] Glucose [Mass/Vol] 144 mg/dL High 70-99 [facility] Comment on above: Performed By: #### M P14 #### [facility] [address] [place], [place] [address] Potassium [Moles/Vol] 4.0 mmol/L Normal 3.5-5.1 [facility] Comment on above: Performed By: #### M P14 #### [facility] [address] [place] [address] Protein [Mass/Vol] 6.9 g/dL Normal 6.4-8.2 [facility] Comment on above: Performed By: #### M P14 #### [facility] [address] [place] [address] Sodium [Moles/Vol] 140 mmol/L Normal 136-145 [facility] Comment on above: Performed By: #### M P14 #### [facility] [address] [place] [address] Urea nitrogen [Mass/Vol] 31 mg/dL High 7-18 [facility] Comment on above: Performed By: #### M P14 #### [facility] [address] [place] [address] ED NOTEon 01-03-2020 ED NOTE HNO ID: [id number] Author: Veena Longoria RN Service: Emergency Medicine Author Type: Registered Nurse Type: ED Notes Filed: 01/03/2020 12:13 PM Note Text: Patient to CT scan with Tech. Normal [facility] ED NOTE HNO ID: [id number] Author: Veena Pride) NORTH Longoria Service: Emergency Medicine Author Type: Registered Nurse Type: ED Notes Filed: 01/03/2020 11:48 AM Note Text: Patient was bike riding with and who is a dr. [place] like he had low blood sugar, she went and got him something to drink when she came back he was unresponsive and seizing. No seizure history. Sugar was 120 and 134 on scene. Normal [facility] ED NOTE HNO ID: [id number] Author: Veena (Rn) Life Science Research Assistant, RN Service: ? Author Type: Registered Nurse Type: ED Notes Filed: 01/03/2020 11:43 AM Note Text: Bed: [address] [place] [address] Expected date: 01/03/20 Expected time: 11:36 AM Means of arrival: Comments: BATH FIRE Normal [facility] ED PROV NOTEon 01-03-2020 ED PROV NOTE HNO ID: [id number] Author: Barbara Dasilva MD Service: Emergency Medicine Author Type: Physician Type: ED Provider Notes Filed: 01/05/2020 7:06 PM Note Text: ED Provider Note Patient Name: Darrius Padron SERVICE DATE: 01/03/20 History Patient presents with: Seizures 54yoM PMHx type 1 diabetes, CAD, hypothyroidism presents to the ED after seizure activity. He reports he was riding bicycle with , when he started to feel like his blood sugar was low. He rode bike back to car. Ate some peanuts and iced tea, had seizure activity, emesis. When EMS arrived, no seizure activity seen, patient noted to be confused. Patient complains of feeling lightheaded. Denies CP, SOB, fevers, chills, cough, dysuria. PAST MEDICAL HISTORY Diagnosis Date - Coronary artery disease - Diabetes mellitus (HCC) type 1 - Hypothyroid PAST SURGICAL HISTORY Procedure Laterality Date - PAST SURGICAL HISTORY OF akr right knee - REMV CATARACT EXTRACAP,INSERT LENS 03/2014, 07/2016 bilateral FAMILY HISTORY Problem Relation Age of Onset - Cancer Father - Hypertension Mother - Heart Mother - Diabetes Brother - Hypertension Brother Social History Tobacco Use - Smoking status: Never Smoker - Smokeless tobacco: Never Used Substance and Sexual Activity - Alcohol use: Never Frequency: Never - Drug use: Never - Sexual activity: Not on file ALLERGIES No Known Allergies Review of Systems Constitutional: Negative for chills and fever. Respiratory: Negative for cough and shortness of breath. Cardiovascular: Negative for chest pain. Gastrointestinal: Negative for abdominal pain, nausea and vomiting. Genitourinary: Negative for dysuria. Neurological: Positive for light-headedness. Negative for weakness and headaches. Physical Exam BP 96/61 Pulse 81 Resp 18 Wt 178 lb (80.7kg) SpO2 97% O2 Therapy: Room Air Physical Exam Vitals signs reviewed. Constitutional: Appearance: Normal appearance. HENT: Head: Normocephalic and atraumatic. Right Ear: Tympanic membrane normal. Left Ear: Tympanic membrane normal. Nose: Nose normal. Mouth/Throat: Mouth: Mucous membranes are dry. Eyes: General: Right eye: No discharge. Left eye: No discharge. Extraocular Movements: Extraocular movements intact. Conjunctiva/sclera: Conjunctivae normal. Pupils: Pupils are equal, round, and reactive to light. Cardiovascular: Rate and Rhythm: Normal rate and regular rhythm. Pulses: Normal pulses. Heart sounds: Normal heart sounds. No murmur. No friction rub. No gallop. Pulmonary: Effort: Pulmonary effort is normal. No respiratory distress. Breath sounds: Normal breath sounds. No stridor. No wheezing, rhonchi or rales. Abdominal: General: Abdomen is flat. Bowel sounds are normal. There is no distension. Palpations: Abdomen is soft. There is no mass. Tenderness: There is no abdominal tenderness. There is no guarding or rebound. Hernia: No hernia is present. Skin: General: Skin is warm. Capillary Refill: Capillary refill takes less than 2 seconds. Findings: No rash. Neurological: General: No focal deficit present. Mental Status: He is alert and oriented to person, place, and time. Cranial Nerves: No cranial nerve deficit. Sensory: No sensory deficit. Motor: No weakness. Psychiatric: Behavior: Behavior normal. NIHSS: 1(a). Mental Status - LOC 0 = Alert and Attentive 1(b). LOC Questions 0 = Correct age and month 1(c). LOC-Commands 0 = Both 2. Gaze 0 = Normal 3. Visual Tirado 0 = Full 4. Facial Weakness 0 = Normal 5(a). Left Arm 0 = No drift 5(b). Right Arm 0 = No drift 6(a). Left Leg 0 = No drift 6(b). Right Leg 0 = No drift 7. Ataxia 0 = Absent 8. Sensory 0 = Normal 9. Aphasia 0 = None 10. Dysarthria 0 = Absent 11. Neglect 0 = None NIHSS Total (0-42): 0 Diagnostic Testing ED Labs Ordered and Reviewed COMPREHENSIVE METABOLIC PANEL (AK,AV,EU,FV,HL,ALEJANDRA,MM,SP) - Abnormal; Notable for the following components: Result Value Ref Range Glucose 144 (*) 70 - 99 mg/dL BUN 31 (*) 7 - 18 mg/dL Creatinine 1.28 (*) 0.67 - 1.17 mg/dL All other components within normal limits CBC + AUTO DIFF (AK,AV,EU,FV,HL,ALEJANDRA,MM,SP) - Abnormal; Notable for the following components: MCHC 35.8 (*) 31.9 - 35.6 % All other components within normal limits URINALYSIS WITH MICROSCOPIC (AK,AV,EU,FV,HL,ALEJANDRA,MM,SP) - Abnormal; Notable for the following components: Glucose, Urine 500 (*) Negative mg/dL Mucus Threads MANY (*) None All other components within normal limits LACTIC ACID / LACTATE (AK,AV,EU,FV,HL,ALEJANDRA,MM,SP) - Abnormal; Notable for the following components: Lactic Acid 2.7 (*) 0.4 - 2.0 mEq/L All other components within normal limits GLUCOSE, BLOOD (POC) - Abnormal; Notable for the following components: GLUCOSE METER 142 (*) 70 - 99 mg/dL All other components within normal limits GLUCOSE - ED(POC) CK CREATINE KINASE (AK,AV,EU,FV,HL,ALEJANDRA,MM,SP) TROPONIN I (AK) MDRD GFR TROPONIN I (AK) LACTIC ACID / LACTATE (AK,AV,EU,FV,HL,ALEJANDRA,MM,SP) XR CHEST 1V FRONTAL Final Result IMPRESSION: No acute radiographic abnormality. Supervisor Beater [facility] Transcribe Date/Time: Jan 03 2020 1:36P Dictated by : MUKESH PORTILLO MD This examination was interpreted and the report reviewed and electronically signed by: MUKESH PORTILLO MD on Jan 03 2020 1:36PM EST CT BRAIN WO IVCON Final Result IMPRESSION: Unremarkable noncontrast head CT. Supervisor Beater Room: PSYCHIATRIC Transcribe Date/Time: Jan 03 2020 12:29P Dictated by : MARIA M MENDENHALL MD This examination was interpreted and the report reviewed and electronically signed by: MARIA M MENDENHALL MD on Jan 03 2020 12:30PM EST Procedures ED Course / Clinical Impression Clinical Impressions as of Jan 04 1906 Syncope, unspecified syncope type Dehydration MDM / Disposition / Plan FSBS normal on arrival. Patient appears clinically dehydrated was given 2 L IV fluid. Lab work revealed normal troponin, initial lactic acid of 2.7, CMP with creatinine of 1.28 BUN 31 glucose 144, CK normal, CBC without significant abnormality. Patient's did pull up his most recent lab work and it appears that patient's baseline creatinine is 1.09. I suspect the mild elevation in BUN/creatinine and lactic acid is secondary to dehydration. Repeat lactic following IV fluid rehydration was normal at 1.3. Repeat troponin remains 0. EKG was nondiagnostic upon arrival. I suspect the twitching-like movement that last for matter of seconds was secondary to brain hypoperfusion from syncope and did not represent true seizure given its short duration and lack of postictal state. Within differential includes heat syncope, heat exhaustion, dehydration, hypoglycemia. Heatstroke considered less likely as patient had normal rectal temperature upon ED arrival at 99 ?F. I did discuss admission for observation rehydration with patient and his . They did not wish for the patient to be admitted. Risks and benefits were discussed. Patient to be discharge home. The patient was DISCHARGED: Counseled patient and spouse regarding lab results AND radiology results AND suspected diagnosis AND need for follow-up. Discharged home with verbal and written instructions. They were instructed to return as needed for persistent or worsening symptoms or any new concerns. Condition at time of disposition: improved and stable SIGNATURE: MD Barbara Saavedra MD 01/05/20 1906 Normal [facility] Glucose [place] 01-03-2020 Glucose [Mass/Vol] 142 mg/dL High 70-99 [facility] Comment on above: Result Comment: MD Hewitt OTIFIED [place] [address] Performed By: #### M GLMT #### [place] [address] Hemogram/Diffon 01-03-2020 Abs. Baso 0.02 thou/cmm Normal 0.00-0.08 [facility] Comment on above: Performed By: #### N CBCD #### [place] [address] Abs. [place] 0.52 thou/cmm Normal 0.19-0.80 [facility] Comment on above: Performed By: #### N CBCD #### [place] [address] Abs. Neut (ANC) 2.66 thou/cmm Normal 1.35-7.21 [facility] Comment on above: Performed By: #### N CBCD #### [facility] [address] [place], [place] [address] Basophils/100 WBC (Bld) 0.5 % Normal [facility] Comment on above: Performed By: #### N CBCD #### [facility] [address] [place], [place] [address] Eosinophils (Bld) [#/Vol] 0.13 thou/cmm Normal 0.00-0.36 [facility] Comment on above: Performed By: #### N CBCD #### [facility] [address] [place], [place] [address] Eosinophils/100 WBC (Bld) 3.0 % Normal [facility] Comment on above: Performed By: #### N CBCD #### [address] [address] Erythrocyte distribution width (RBC) [Ratio] 12.1 % Normal 11.8-14.5 [facility] Comment on above: Performed By: #### N CBCD #### [address] [address] Hematocrit (Bld) [Volume fraction] 40.5 % Normal 39.6-50.7 [facility] Comment on above: Performed By: #### N CBCD #### [address] [address] Hemoglobin (Bld) [Mass/Vol] 14.5 g/dL Normal 13.2-17.4 [facility] Comment on above: Performed By: #### N CBCD #### [facility] [address] [place], [place] [address] Lymphocytes (Bld) [#/Vol] 1.05 thou/cmm Normal 0.68-2.93 [facility] Comment on above: Performed By: #### N CBCD #### [address] [address] Lymphocytes/100 WBC (Bld) 23.8 % Normal [facility] Comment on above: Performed By: #### N CBCD #### [facility] [address] [place], [place] [address] MCH (RBC) [Entitic mass] 31.3 pg Normal 27.4-32.8 [facility] Comment on above: Performed By: #### N CBCD #### [facility] [address] [place], [place] [address] MCHC (RBC) [Mass/Vol] 35.8 % High 31.9-35.6 [facility] Comment on above: Performed By: #### N CBCD #### [facility] [address] [place] [address] MCV (RBC) [Entitic vol] 87.5 fL Normal 81.8-95.6 [facility] Comment on above: Performed By: #### N CBCD #### [facility] [address] [place] [address] Monocytes/100 WBC (Bld) 11.9 % Normal [facility] Comment on above: Performed By: #### N CBCD #### [facility] [address] [place] [address] Platelet mean volume (Bld) [Entitic vol] 9.5 fL Normal 8.8-12.1 [facility] Comment on above: Performed By: #### N CBCD #### [facility] [address] [place] [address] Platelets (Bld) [#/Vol] 271 thou/cmm Normal 150-370 [facility] Comment on above: Performed By: #### N CBCD #### [facility] [address] [place] [address] RBC (Bld) [#/Vol] 4.63 mil/cmm Normal 4.22-5.80 [facility] Comment on above: Performed By: #### N CBCD #### [facility] [address] [place] [address] Seg Neutrophil 60.8 % Normal [facility] Comment on above: Performed By: #### N CBCD #### [facility] [address] [place] [address] WBC (Bld) [#/Vol] 4.4 thou/cmm Normal 4.4-9.7 [facility] Comment on above: Performed By: #### N CBCD #### [place] [address] Lactic Acidon 01-03-2020 Lactate [Moles/Vol] 1.3 mmol/L Normal 0.4-2.0 [facility] Comment on above: Performed By: #### M TRP #### [place] [address] Lactate [Moles/Vol] 2.7 mmol/L Critically high 0.4-2.0 [facility] Comment on above: Performed By: #### M LAC #### [place] [address] MDRD eGFRon 01-03-2020 GFR/1.73 sq M predicted among non-blacks MDRD (S/P/Bld) [Vol rate/Area] mL/min/{1.73_m2} Normal >60mL/min/ 1.73m2 [facility] Comment on above: Result Comment: If t he patient is , multiply the result by 1.210. Performed By: #### M GFR #### [place] [address] Troponin Ion 01-03-2020 Troponin I.cardiac [Mass/Vol] 0.00 ng/mL Normal <0.04 [facility] Comment on above: Performed By: #### M TRP #### [place] [address] Troponin I.cardiac [Mass/Vol] 0.00 ng/mL Normal <0.04 [facility] Comment on above: Performed By: #### M TRP #### [place] [address] Urinalysis Routineon 020 Appearance (U) CLEAR Normal [facility] Comment on above: Performed By: #### M TRP #### [place] [address] Color (U) YELLOW Normal [facility] Comment on above: Performed By: #### M TRP #### [facility] [address] [place] [address] Ep Cells Urine 2-5 Normal 0-5 [facility] Comment on above: Performed By: #### M TRP #### [facility] [address] [place] [address] Mucus Threads MANY Abnormal None [facility] Comment on above: Performed By: #### M TRP #### [facility] [address] [place] [address] RBC LM.HPF (Urine sed) [#/Area] 0-3 Normal 0-3 [facility] Comment on above: Performed By: #### M TRP #### [facility] [address] [place] [address] WBC LM.HPF (Urine sed) [#/Area] 2-5 Normal 0-5 [facility] Comment on above: Performed By: #### M TRP #### [facility] [address] [place] [address] Bilirubin Urine Negative Normal Negative [facility] Comment on above: Performed By: #### M TRP #### [facility] [address] [place] [address] Glucose Ql (U) 500 mg/dL Abnormal Negative [facility] Comment on above: Performed By: #### M TRP #### [facility] [address] [place] [address] Hemoglobin,Urine Negative Normal Negative [facility] Comment on above: Performed By: #### M TRP #### [facility] [address] [place] [address] Ketone Urine Negative Normal Negative [facility] Comment on above: Performed By: #### M TRP #### [facility] [address] [place] [address] Leukocytes Esterase Negative Normal Negative [facility] Comment on above: Performed By: #### M TRP #### [facility] [address] [place] [address] Nitrites Urine Negative Normal Negative [facility] Comment on above: Performed By: #### M TRP #### [facility] [address] [place] [address] pH (U) 6.0 [pH] Normal 5.0-8.0 [facility] Comment on above: Performed By: #### M TRP #### [facility] [address] [place], [place] [address] Protein (U) [Mass/Vol] Negative Normal Negative [facility] Comment on above: Performed By: #### M TRP #### [facility] [address] [place] [address] Specific [place], Ur 1.025 Normal 1.005-1 .03 0 [facility] Comment on above: Performed By: #### M TRP #### [facility] [address] [place] [address] Urobilinogen,Ur 0.2 EU/dL Normal 0.2-1.0 [facility] Comment on above: Performed By: #### M TRP #### [facility] [address] [place] [address] XR CHEST 1V FRONTALon 2019 XR CHEST 1V FRONTAL Final Report DATE OF EXAM: Jan 03 2020 1:31PM AWX [id number] - XR CHEST 1V FRONTAL / PROCEDURE REASON: Shortness of breath Physician Interpretation EXAMINATION: CHEST RADIOGRAPH (SINGLE VIEW AP OR PA) CLINICAL HISTORY: Shortness of breath MQ: XC1_5 Comparison: None RESULT: Lines, tubes, and devices: None. Lungs and pleura: No consolidation. No lung mass. No pleural effusion. Cardiomediastinal silhouette: Normal cardiomediastinal silhouette. Other: No acute osseous findings. IMPRESSION: No acute radiographic abnormality. Supervisor Beater Room: KEISHA Transcribe Date/Time: Jan 03 2020 1:36P Dictated by : MUKESH PORTILLO MD This examination was interpreted and the report reviewed and electronically signed by: MUKESH PORTILLO MD on Jan 03 2020 1:36PM EST Normal [facility] STEPHEN CULTURE-OTHER ([id number])Ord ered By: Clinical Operations Manager on 01-12-2019 Bacteria identified Respiratory culture Nom (Unsp spec) Final report Normal [facility] Work Phone: Comment on above: PATIENT NOT FASTINGP ERFORMED BY: [facility] [id number] [facility] [place] [id number] Information: SRC:TH Bacteria identified Respiratory culture Nom (Unsp spec) RRF Normal [facility] Work Phone: Comment on above: Routine respiratory [place]arna PATIENT NOT FASTINGP ERFORMED BY: SHERLY [facility] Fldtvi0611 [place] [facility] [place] [id number] Information: SRC:TH FSH AND LH ([id number])Ordered By : Clinical Operations Manager on 11-19-2016 Follitropin Qn 13.8 m[IU]/mL Abnormal 1.5-12.4 Compreh ensive Internal Medicine Work Phone: Comment on above: PATIENT WAS FASTINGP ERFORMED BY: SHERLY [facility] [id number] [place] [facility] [id number] BY: [employer] [id number] Lutropin Qn 7.8 m[IU]/mL Normal 1.7-8.6 Comprehensi ve Internal Medicine Work Phone: Comment on above: PATIENT WAS FASTINGP ERFORMED BY: SHERLY [facility] [id number] [place] [facility] [id number] BY: [address] [id number] PROLACTIN ([id number])Ordered By: Clinical Operations Manager on 11-19-2016 Prolactin mass conc 7.7 ng/mL Normal 4.0-15.2 [facility] Work Phone: Comment on above: PATIENT WAS FASTINGP ERFORMED BY: SHERLY [facility] [id number] [facility] [id number] BY: [address] [id number] TESTOSTERONE FREE ([id number])Ord ered By: Clinical Operations Manager on 11-19-2016 Testosterone Free mass conc 13.0 pg/mL Normal 7.2-24.0 [facility] Work Phone: Comment on above: PATIENT WAS FASTINGP ERFORMED BY: [facility] [id number] [place] [facility] [id number] BY: BN [facility] Qrhmqsbzsb0712 [facility] [id number] TSH ([id number])Ordered By: Syste m Allergy And Immunology Specialist on 11-19-2016 Thyrotropin Qn 0.110 {uIU/mL} Abnormal 0.450-4.50 0 [facility] Work Phone: Comment on above: PATIENT WAS FASTINGP ERFORMED BY: [employer] [facility] Ogpsas6144 [facility] [id number] BY: [employer] [facility] Tbkmilmkap[address] [id number] HgA1C , Office ([id number])Ordere d By: Rosalind Byrnes on 03-25-2015 Hemoglobin A1c/Hemoglobin.total mass fraction (Bld) 6.8 % Normal 4.6 - 7.1 Comprehensiv e [facility] Work Phone: CALCIFIDIOL (55929) VIT D 25 Ordered By: Clinical Operations Manager on 02-12-2013 25-Hydroxyvitamin D2+25-Hydroxyvitamin D3 mass conc 31.9 ng/mL Normal 30.0-100.0 [facility] Work Phone: Comment on above: Vitamin D deficiency has been defined by the [place] ofMedicine and an Endocrine Society practice guideline as alevel of serum 25-OH vitamin D less than 20 ng/mL (1,2).The Endocrine Society went on to further define vitamin Dinsufficiency as a level between 21 and 29 ng/mL (2).1. IOM ([place] of Medicine). 2010. Dietary reference intakes for calcium and D. [place]: The National Academies Press.2. Herminio MF, Sima NC, Aurelio RGIGGS, et al. Evaluation, treatment, and prevention of vitamin D deficiency: an Endocrine Society clinical practice guideline. JCEM. 2010; 96(7):1911-30. send all labs done t o Dr. howard; PATIENT WAS FASTINGPERFORMED BY: [employer] [facility] Kevzas2117 [place] [facility] [id number] BY: [facility] Eebkvuhjyk8257 [facility] [id number] CBC WITH MANUAL DIFF ([id number]) Ordered By: Clinical Operations Manager on 02-12-2013 Basophils #/vol (Bld) 0.0 {x10E3/uL} Normal 0.0-0.2 [facility] Work Phone: Comment on above: PATIENT WAS FASTINGP ERFORMED BY: SHERLY [facility] [id number] [id number] Information: [id number],2ND ORDER NO DRAW F EE Basophils (Bld) [#/Vol] 0.0 10*3/uL Normal 0.0-0.2 [facility] Work Phone: Comment on above: PATIENT WAS FASTINGP ERFORMED BY: SHERLY [facility] [id number] [id number] Information: [id number],2ND ORDER NO DRAW F EE Basophils Auto #/vol (Bld) 0.0 {x10E3/uL} Normal 0.0-0.2 [facility] Work Phone: Basophils/100 WBC (Bld) 1 % Normal 0-3 [facility] Work Phone: Comment on above: PATIENT WAS FASTINGP ERFORMED BY: SHERLY [facility] Y[address] [id number] Information: [id number],2ND ORDER NO DRAW F EE Basophils/100 WBC Auto (Bld) 1 % Normal 0-3 [facility] Work Phone: Eosinophils #/vol (Bld) 0.1 {x10E3/uL} Normal 0.0-0.4 [facility] Work Phone: Comment on above: PATIENT WAS FASTINGP ERFORMED BY: [address] [id number] Information: [id number],2ND ORDER NO DRAW F EE Eosinophils (Bld) [#/Vol] 0.1 10*3/uL Normal 0.0-0.4 [facility] Work Phone: Comment on above: PATIENT WAS FASTINGP ERFORMED BY: [address] [id number] Information: [id number],2ND ORDER NO DRAW F EE Eosinophils Auto #/vol (Bld) 0.1 {x10E3/uL} Normal 0.0-0.4 [facility] Work Phone: Eosinophils/100 WBC (Bld) 3 % Normal 0-7 [facility] Work Phone: Comment on above: PATIENT WAS FASTINGP ERFORMED BY: [place] [id number] [facility] [id number] Information: [id number],2ND ORDER NO DRAW F EE Eosinophils/100 WBC Auto (Bld) 3 % Normal 0-7 [facility] Work Phone: Erythrocyte distribution width Auto Ratio (RBC) 13.4 % Normal 12.3-15.4 [facility] Work Phone: Erythrocyte distribution width Ratio (RBC) 13.4 % Normal 12.3-15.4 [facility] Work Phone: Comment on above: PATIENT WAS FASTINGP ERFORMED BY: [address] [id number] Information: [id number],2ND ORDER NO DRAW F EE Hematocrit Auto Volume Fraction (Bld) 44.0 % Normal 37.5-51.0 [facility] Work Phone: Hematocrit Volume Fraction (Bld) 44.0 % Normal 37.5-51.0 [facility] Work Phone: Comment on above: PATIENT WAS FASTINGP ERFORMED BY: [place] [id number] [facility] [id number] Information: [id number],2ND ORDER NO DRAW F EE Hemoglobin mass conc (Bld) 15.0 g/dL Normal 12.6-17.7 [facility] Work Phone: Comment on above: PATIENT WAS FASTINGP ERFORMED BY: [place] [id number] [facility] [id number] Information: [id number],2ND ORDER NO DRAW F EE Immature granulocytes #/vol (Bld) 0.0 {x10E3/uL} Normal 0.0-0.1 [facility] Work Phone: Comment on above: PATIENT WAS FASTINGP ERFORMED BY: SHERLY [place] [id number] [facility] [id number] Information: [id number],2ND ORDER NO DRAW F EE Immature granulocytes (Bld) [#/Vol] 0.0 10*3/uL Normal 0.0-0.1 [facility] Work Phone: Comment on above: PATIENT WAS FASTINGP ERFORMED BY: [address] [id number] Information: [id number],2ND ORDER NO DRAW F EE Immature granulocytes/100 WBC (Bld) 0 % Normal 0-2 [facility] Work Phone: Comment on above: PATIENT WAS FASTINGP ERFORMED BY: [address] [id number] Information: [id number],2ND ORDER NO DRAW F EE Lymphocytes #/vol (Bld) 1.0 {x10E3/uL} Normal 0.7-4.5 [facility] Work Phone: Comment on above: PATIENT WAS FASTINGP ERFORMED BY: [address] [id number] Information: [id number],2ND ORDER NO DRAW F EE Lymphocytes (Bld) [#/Vol] 1.0 10*3/uL Normal 0.7-4.5 [facility] Work Phone: Comment on above: PATIENT WAS FASTINGP ERFORMED BY: [address] [id number] Information: [id number],2ND ORDER NO DRAW F EE Lymphocytes Auto #/vol (Bld) 1.0 {x10E3/uL} Normal 0.7-4.5 [facility] Work Phone: Lymphocytes/100 WBC (Bld) 24 % Normal 14-46 [facility] Work Phone: Comment on above: PATIENT WAS FASTINGP ERFORMED BY: SHERLY [facility]6370 [facility] [id number] Information: [id number],2ND ORDER NO DRAW F EE Lymphocytes/100 WBC Auto (Bld) 24 % Normal 14-46 [facility] Work Phone: MCH Auto Entitic mass (RBC) 30.9 pg Normal 26.6-33.0 [facility] Work Phone: MCH Entitic mass (RBC) 30.9 pg Normal 26.6-33.0 [facility] Work Phone: Comment on above: PATIENT WAS FASTINGP ERFORMED BY: SHERLY [place] [facility] [id number] Information: [id number],2ND ORDER NO DRAW F EE MCHC Auto mass conc (RBC) 34.1 g/dL Normal 31.5-35.7 [facility] Work Phone: MCHC mass conc (RBC) 34.1 g/dL Normal 31.5-35.7 Comp [facility] Work Phone: Comment on above: PATIENT WAS FASTINGP ERFORMED BY: SHERLY [place] [facility] [id number] Information: [id number],2ND ORDER NO DRAW F EE MCV Auto Entitic volume (RBC) 91 fL Normal 79-97 [facility] Work Phone: MCV Entitic volume (RBC) 91 fL Normal 79-97 [facility] Work Phone: Comment on above: PATIENT WAS FASTINGP ERFORMED BY: SHERLY [facility]6370 [facility] [id number] Information: [id number],2ND ORDER NO DRAW F EE Monocytes #/vol (Bld) 0.3 {x10E3/uL} Normal 0.1-1.0 [facility] Work Phone: Comment on above: PATIENT WAS FASTINGP ERFORMED BY: SHERLY [place] [id number] [facility] [id number] Information: [id number],2ND ORDER NO DRAW F EE Monocytes (Bld) [#/Vol] 0.3 10*3/uL Normal 0.1-1.0 [facility] Work Phone: Comment on above: PATIENT WAS FASTINGP ERFORMED BY: [place] [id number] [facility] [id number] Information: [id number],2ND ORDER NO DRAW F EE Monocytes Auto #/vol (Bld) 0.3 {x10E3/uL} Normal 0.1-1.0 [facility] Work Phone: Monocytes/100 WBC (Bld) 7 % Normal 09-27 [facility] Work Phone: Comment on above: PATIENT WAS FASTINGP ERFORMED BY: [address] [id number] Information: [id number],2ND ORDER NO DRAW F EE Monocytes/100 WBC Auto (Bld) 7 % Normal - [facility] Work Phone: Neutrophils #/vol (Bld) 2.8 {x10E3/uL} Normal 1.8-7.8 [facility] Work Phone: Comment on above: PATIENT WAS FASTINGP ERFORMED BY: [address] [id number] Information: [id number],2ND ORDER NO DRAW F EE Neutrophils (Bld) [#/Vol] 2.8 10*3/uL Normal 1.8-7.8 [facility] Work Phone: Comment on above: PATIENT WAS FASTINGP ERFORMED BY: [address] [id number] Information: [id number],2ND ORDER NO DRAW F EE Neutrophils Auto #/vol (Bld) 2.8 {x10E3/uL} Normal 1.8-7.8 [facility] Work Phone: Neutrophils/100 WBC (Bld) 65 % Normal 40-74 [facility] Work Phone: Comment on above: PATIENT WAS FASTINGP ERFORMED BY: [facility]6370 [facility] [id number] Information: [id number],2ND ORDER NO DRAW F EE Neutrophils/100 WBC Auto (Bld) 65 % Normal 40-74 [facility] Internal Medicine Work Phone: Platelets #/vol (Bld) 279 {x10E3/uL} Normal 140-415 [facility] Internal Medicine Work Phone: Comment on above: Effective Febembe r 2012, the reference intervals for CBC:WBC, Differential Parameters (Neutrophil %, Neutrophil Absolute, Lymphocyte %, Lymphocyte Absolute, Monocyte %, Monocyte Absolute, Eosinophil %, Eosinophil Absolute), and Platelet Counts will be adjusted to maintain consistency with the distribution of these values in the reference population. PATIENT WAS FASTINGP ERFORMED BY: [facility]6370 [facility] [id number] Information: [id number],2ND ORDER NO DRAW F EE Platelets (Bld) [#/Vol] 279 10*3/uL Normal 140-415 [facility] Internal Medicine Work Phone: Comment on above: Effective r 2012, the reference intervals for CBC:WBC, Differential Parameters (Neutrophil %, Neutrophil Absolute, Lymphocyte %, Lymphocyte Absolute, Monocyte %, Monocyte Absolute, Eosinophil %, Eosinophil Absolute), and Platelet Counts will be adjusted to maintain consistency with the distribution of these values in the reference population. PATIENT WAS FASTINGP ERFORMED BY: [facility]6370 [facility] [id number] Information: [id number],2ND ORDER NO DRAW F EE Platelets Auto #/vol (Bld) 279 {x10E3/uL} Normal 140-415 [facility] Internal Medicine Work Phone: Comment on above: Effective r 2012, the reference intervals for CBC:WBC, Differential Parameters (Neutrophil %, Neutrophil Absolute, Lymphocyte %, Lymphocyte Absolute, Monocyte %, Monocyte Absolute, Eosinophil %, Eosinophil Absolute), and Platelet Counts will be adjusted to maintain consistency with the distribution of these values in the reference population. RBC #/vol (Bld) 4.85 {x10E6/uL} Normal 4.14-5.80 [facility] Internal [facility] Work Phone: Comment on above: PATIENT WAS FASTINGP ERFORMED BY: SHERLY [facility] Heofnr9833 [facility] [id number] Information: [id number],2ND ORDER NO DRAW F EE RBC (Bld) [#/Vol] 4.85 10*6/uL Normal 4.14-5.80 [facility] Internal Medicine Work Phone: Comment on above: PATIENT WAS FASTINGP ERFORMED BY: [address] [id number] Information: [id number],2ND ORDER NO DRAW F EE RBC Auto #/vol (Bld) 4.85 {x10E6/uL} Normal 4.14-5.80 [facility] Internal Medicine Work Phone: WBC #/vol (Bld) 4.3 {x10E3/uL} Normal 4.0-10.5 [facility] Work Phone: Comment on above: Effective 2012, the reference intervals for CBC:WBC, Differential Parameters (Neutrophil %, Neutrophil Absolute, Lymphocyte %, Lymphocyte Absolute, Monocyte %, Monocyte Absolute, Eosinophil %, Eosinophil Absolute), and Platelet Counts will be adjusted to maintain consistency with the distribution of these values in the reference population. PATIENT WAS FASTINGP ERFORMED BY: [facility]6370 [facility] [id number] Information: [id number],2ND ORDER NO DRAW F EE WBC (Bld) [#/Vol] 4.3 10*3/uL Normal 4.0-10.5 [facility] Internal Medicine Work Phone: Comment on above: Effective 2012, the reference intervals for CBC:WBC, Differential Parameters (Neutrophil %, Neutrophil Absolute, Lymphocyte %, Lymphocyte Absolute, Monocyte %, Monocyte Absolute, Eosinophil %, Eosinophil Absolute), and Platelet Counts will be adjusted to maintain consistency with the distribution of these values in the reference population. PATIENT WAS FASTINGP ERFORMED BY: [employer]6370 [facility] [id number] Information: [id number],2ND ORDER NO DRAW F EE WBC Auto #/vol (Bld) 4.3 {x10E3/uL} Normal 4.0-10.5 [facility] Work Phone: Comment on above: Effective 2012, the reference intervals for CBC:WBC, Differential Parameters (Neutrophil %, Neutrophil Absolute, Lymphocyte %, Lymphocyte Absolute, Monocyte %, Monocyte Absolute, Eosinophil %, Eosinophil Absolute), and Platelet Counts will be adjusted to maintain consistency with the distribution of these values in the reference population. Ferritin ([id number])Ordered By: Clinical Operations Manager on 02-12-2013 Ferritin mass conc 83 ng/mL Normal 30-400 [facility] Internal Medicine Work Phone: Comment on above: PATIENT WAS FASTINGP ERFORMED BY: [employer]6370 [facility] [id number] BY: [employer] [id number] Hemoglobin Glyclated (HGB A1 C) (45119)Ordered By: Clinical Operations Manager on 02-12-2013 Hemoglobin A1c/Hemoglobin.total mass fraction (Bld) 6.7 % Abnormal 4.8-5.6 [facility] Work Phone: Comment on above: . Increased risk for diabetes: 5.7 - 6.4 Diabetes: >6.4 Glycemic control for adults with diabetes: <7.0 PATIENT WAS FASTINGP ERFORMED BY: [employer]6370 [facility] [id number] KNEE 4 OR MORE VIEWSOrdered By: Clinical Operations Manager on 02-12-2013 KNEE 4 OR MORE VIEWS See Note Normal Comp rehensive Internal Medicine Work Phone: Comment on above: STUDY: X-RAY - RIGHT KNEE REASON FOR EXAM: Male, 47 years old. Pain. History of surgeryinnumerable past. TECHNIQUE: 4 views of the knee. COMPARISON: None. FINDINGS: There are fixating screws in the medial femoral condyle and inthe medial aspect of the tibial plateau. The tibial plateau screwappearsdepressed 5.5 mm. The medial compartment is markedly narrowed. There isconsiderable sclerosis about the medial compartment. No acute fractures or dislocations are demonstrated. There is chondrocalcinosis in the lateral compartment. Moderate osteophyte formation can be seen about the intercondylareminenceand the medial femoral condyle. IMPRESSION:1. Fixating screws are present in the medial femoral condyle and in themedial aspect of the tibial plateau. The tibial plateau screw appearsdepressed 5 mm. This observation needs correlation with any previousstudies. 2. Moderate degenerative changes medially. 3. Chondrocalcinosis laterally. Signed:Tee Echevarria M.D.February 12, 2013 at 11:09:28 AM [id number] Signed RU/RU If you are the referring physician and would like to consult with theradiologist who provided this interpretation, please contact Deshawn Chen at [phone]. If this radiologist is unavailable, youwillbe directed to another radiologist to assist. If you are a patient with a question regarding this report, pleasecontactyour referring physician directly. Professional Interpretation Provided By: [employer], Phone , These documents contain legally protected and confidential healthinformation intended only for the use of the individual or entity namedabove. If you are not the intended recipient, you are hereby notifiedthatany disclosure, copying, distribution, or other use of these documents isstrictly prohibited. If you have received this information in error,pleasenotify the sender immediately and arrange for the return or destructionofthese documents. Dictated on 02/12/13 1109 by Tee EchevarriaTranscribed on 02/12/131116 by ITS IMPORTSign by Tee Echevarria on 08/29/13 1118 Sign by: Tee Echevarria STUDY: X-RAY - LEFT KNEE REASON FOR EXAM: Male, 47 years old. Pain TECHNIQUE: 4 views of the knee. COMPARISON: 03/18/09 FINDINGS:No fractures or dislocations are demonstrated. There is slight narrowing of the medial compartment. Minimal slightosteophytes can be seen about the patellofemoral space and intercondylareminence. There is chondrocalcinosis about the lateral compartment. IMPRESSION:1. Minimal narrowing medial compartment. Minimal sized osteophytes.Minimal degenerative changes. 2. Chondrocalcinosis lateral compartment. Signed:Tee Echevarria M.D.February 12, 2013 at 12:41:25 PM [id number] Signed RU/RU If you are the referring physician and would like to consult with theradiologist who provided this interpretation, please contact Deshawn Chen at [phone]. If this radiologist is unavailable, youwillbe directed to another radiologist to assist. If you are a patient with a question regarding this report, pleasecontactyour referring physician directly. Professional Interpretation Provided By: [employer], Phone , These documents contain legally protected and confidential healthinformation intended only for the use of the individual or entity namedabove. If you are not the intended recipient, you are hereby notifiedthatany disclosure, copying, distribution, or other use of these documents isstrictly prohibited. If you have received this information in error,pleasenotify the sender immediately and arrange for the return or destructionofthese documents. Dictated on 02/12/13 1241 by Tee EchevarriaTranscribed on 02/12/13 1311 by ITS IMPORTSign by Tee Echevarria on 02/12/13 1312 Sign by: Tee Echevarria LIPID PANEL ([id number])Ordered B y: Clinical Operations Manager on 02-12-2013 Cholesterol in HDL mass conc 75 mg/dL Normal [facility] Work Phone: Comment on above: According to ATP-III Guidelines, HDL-C >59 mg/dL is considered anegative risk factor for CHD. PATIENT WAS FASTINGP ERFORMED BY: CB [facility] Mynsjx8980 [address] RoadDublin [place] [id number] Cholesterol in LDL mass conc 91 mg/dL Normal 0-99 [facility] Work Phone: Comment on above: PATIENT WAS FASTINGP ERFORMED BY: CB [facility] Tjvvxt3952 [address] RoadDublin [place] [id number] Cholesterol in LDL/Cholesterol in HDL mass ratio 1.2 {ratio_units} Normal 0.0-3.6 [facility] Work Phone: Comment on above: PATIENT WAS FASTINGP ERFORMED BY: CB [facility] Zofltv4216 [address] RoadDublin [place] [id number] Cholesterol in VLDL mass conc 9 mg/dL Normal 5-40 [facility] Work Phone: Comment on above: PATIENT WAS FASTINGP ERFORMED BY: CB [facility] Isgzfc1704 [address] RoadDublin [place] [id number] Cholesterol mass conc 175 mg/dL Normal 100-199 [facility] [[email or web address]] Internal Medicine Work Phone: Comment on above: PATIENT WAS FASTINGP ERFORMED BY: CB [facility] Gtgciv9245 [address] RoadDublin [place] [id number] Triglyceride mass conc 46 mg/dL Normal 0-149 [facility] Internal Medicine Work Phone: Comment on above: PATIENT WAS FASTINGP ERFORMED BY: CB [facility] Pnqycn044[address]Dublin [place] [id number] METABOLIC PANEL, COMPREHENSI VE ([id number])Ordered By: Clinical Operations Manager on 02-12-2013 Albumin mass conc 4.1 g/dL Normal 3.5-5.5 Compreh ensive Internal Medicine Work Phone: Comment on above: PATIENT WAS FASTINGP ERFORMED BY: CB [facility] Innreu1141 [address] RoadDublin [place] [id number] Albumin/Globulin mass ratio 1.6 {ratio} Normal 1.1-2.5 [facility] Work Phone: Comment on above: PATIENT WAS FASTINGP ERFORMED BY: SHERLY GeenaSaroj BarbourYptobr0281 Martinez RoadDublin [place] [id number] ALP [Catalytic activity/Vol] 58 U/L Normal 44-102 [facility] Work Phone: Comment on above: PATIENT WAS FASTINGP ERFORMED BY: SHERLY Barbourlin6[address] RoadDublin [place] [id number] ALP enzyme act/vol 58 [iU]/L Normal 44-102 [facility] Internal Medicine Work Phone: Comment on above: PATIENT WAS FASTINGP ERFORMED BY: SHERLY Otoole6[address] RoadDublin [place] [id number] ALT [Catalytic activity/Vol] 13 U/L Normal 0-44 [facility] Internal Medicine Work Phone: Comment on above: PATIENT WAS FASTINGP ERFORMED BY: SHERLY Otoole6370 [address] RoadCrawley Memorial Hospitalin [place] [id number] ALT enzyme act/vol 13 [iU]/L Normal 0-44 [facility] Internal Medicine Work Phone: Comment on above: PATIENT WAS FASTINGP ERFORMED BY: SHERLY Barbourlin6370 [address]blin [place] [id number] AST [Catalytic activity/Vol] 20 U/L Normal 0-40 [facility] Internal Medicine Work Phone: Comment on above: PATIENT WAS FASTINGP ERFORMED BY: SHERLY Barbourlin6[address] RoadDuin [place] [id number] AST enzyme act/vol 20 [iU]/L Normal 0-40 [facility] Internal Medicine Work Phone: Comment on above: PATIENT WAS FASTINGP ERFORMED BY: SHERLY Barbourlin6[address]Dublin [place] [id number] Bilirubin mass conc 0.9 mg/dL Normal 0.0-1.2 [facility] Internal Medicine Work Phone: Comment on above: PATIENT WAS FASTINGP ERFORMED BY: SHERLY Barbourlin6[address] Roadblin [place] [id number] Calcium mass conc 10.0 mg/dL Normal 8.7-10.2 Compreh ensive Internal Medicine Work Phone: Comment on above: PATIENT WAS FASTINGP ERFORMED BY: [facility] Pofnvp1700 [address] RoadDublin [place] [id number] Chloride molar conc 101 mmol/L Normal 97-108 Compr ehensive Internal Medicine Work Phone: Comment on above: PATIENT WAS FASTINGP ERFORMED BY: [facility] Tvnmhp5573 [address] RoadDublin [place] [id number] CO2 molar conc 24 mmol/L Normal 19-28 Comprehens bernard Internal Medicine Work Phone: Comment on above: PATIENT WAS FASTINGP ERFORMED BY: [facility] Ecrxse3379 Martinez RoadCrawley Memorial Hospitalin [place] [id number] Creatinine mass conc 1.06 mg/dL Normal 0.76-1.27 Comp rehensive Internal Medicine Work Phone: Comment on above: PATIENT WAS FASTINGP ERFORMED BY: [facility] Lbyrcn5508 [address] Roadblin [place] [id number] GFR/1.73 sq M predicted among blacks CKD-EPI vol rate/area (S/P/Bld) 96 mL/min/1.73 Normal Comprehensiv e Internal Medicine Work Phone: Comment on above: PATIENT WAS FASTINGP ERFORMED BY: [facility] Vkiosc3315 [address] Roadblin [place] [id number] GFR/1.73 sq M predicted among non-blacks CKD-EPI vol rate/area (S/P/Bld) 83 mL/min/1.73 Normal [facility] Work Phone: Comment on above: PATIENT WAS FASTINGP ERFORMED BY: [facility] Mjjhzm2731 [address] Roadblin [place] [id number] Globulin Calculated mass conc (S) 2.6 g/dL Normal 1.5-4.5 [facility] Work Phone: Globulin mass conc (S) 2.6 g/dL Normal 1.5-4.5 [facility] Work Phone: Comment on above: PATIENT WAS FASTINGP ERFORMED BY: SHERLY Otoole[address] [employer] [id number] Glucose mass conc 161 mg/dL Abnormal 65-99 Compreh ensive Internal Medicine Work Phone: Comment on above: PATIENT WAS FASTINGP ERFORMED BY: SHERLY Otoole[address] [employer])[facility] [id number] Potassium molar conc 4.6 mmol/L Normal 3.5-5.2 Comp rehensive Internal Medicine Work Phone: Comment on above: PATIENT WAS FASTINGP ERFORMED BY: SHERLY Otoole6370 [facility] [id number] Protein mass conc 6.7 g/dL Normal 6.0-8.5 Compreh ensive Internal Medicine Work Phone: Comment on above: PATIENT WAS FASTINGP ERFORMED BY: SHERLY Otoole6370 [facility] [id number] Sodium molar conc 138 mmol/L Normal 134-144 Compreh ensive Internal Medicine Work Phone: Comment on above: PATIENT WAS FASTINGP ERFORMED BY: SHERLY Barbourlin6370 [facility] [id number] Urea nitrogen mass conc 25 mg/dL Abnormal 6-24 [facility] Work Phone: Comment on above: PATIENT WAS FASTINGP ERFORMED BY: SHERLY Barbourlin[address] [employer])[facility] [id number] Urea nitrogen/Creatinine mass ratio 24 mg/mg Abnormal 9-20 [facility] Work Phone: Comment on above: PATIENT WAS FASTINGP ERFORMED BY: SHERLY Barbourlin6370 [facility] [id number] MICROALBUMINOrdered By: Syst em Allergy And Immunology Specialist on 02-12-2013 Albumin DL <= 20 mg/L mass conc (U) 10.7 ug/mL Normal 0.0-17.0 [facility] Work Phone: Comment on above: PATIENT WAS FASTINGP ERFORMED BY: [employer] Tmnggj4255 [facility] [id number] BY: [employer] [id number] Information: [id number] Albumin/Creatinine mass ratio (U) 4.1 {mg/g_creat} Normal 0.0-30.0 [facility] Work Phone: Comment on above: PATIENT WAS FASTINGP ERFORMED BY: [employer] Ukrrfs5973 [facility] [id number] BY: [address] [id number] Information: [id number] Creatinine mass conc (U) 262.4 mg/dL Normal 22.0-328.0 [facility] Work Phone: Comment on above: PATIENT WAS FASTINGP ERFORMED BY: [employer] Mxvgut9152 [facility] [id number] BY: [employer] [id number] Information: [id number] Methymalonic Acid, Serum (83 921)Ordered By: Clinical Operations Manager on 02-12-2013 Methylmalonate Ql (U) 164 nmol/L Normal 73-376 [facility] prehensive Internal Medicine Work Phone: Comment on above: The reference range for methylmalonic acid has been set at +3sd abovethe mean for healthy blood bank donors. In the clinical assessment ofpatients with megaloblastic anemias a cutoff of +3sd provides greaterspecificity in the diagnosis of the vitamin deficiency states,despite the sacrifice of some sensitivity. PATIENT WAS FASTINGP ERFORMED BY: [employer] Huixyp3238 [facility] [id number] BY: [address] [id number] T4, FREE (THYROXINE) (89420) Ordered By: Clinical Operations Manager on 02-12-2013 T4 free mass conc 2.65 ng/dL Abnormal 0.82-1.77 Compreh ensive Internal Medicine Work Phone: Comment on above: PATIENT WAS FASTINGP ERFORMED BY: [employer] Hwxwqj0594 [facility] [id number] BY: [address] [id number] TSH (99282)Ordered By: Silvia m Allergy And Immunology Specialist on 02-12-2013 Thyrotropin Qn 0.036 {uIU/mL} Abnormal 0.450-4.50 0 [facility] Work Phone: Comment on above: PATIENT WAS FASTINGP ERFORMED BY: [employer] Jmkzrj2606 [facility] [id number] Vitamin B-12 (cyanocobalamin ) (08407)Ordered By: Clinical Operations Manager on 02-12-2013 Cobalamin (Vitamin B12) mass conc 643 pg/mL Normal 211-946 [facility] Work Phone: Comment on above: PATIENT WAS FASTINGP ERFORMED BY: [employer] Mobbhp9748 [facility] [id number] BY: [employer] [id number] STEPHEN CULTURE-OTHER ([id number])Ord ered By: Clinical Operations Manager on 06-16-2012 Bacteria identified Respiratory culture Nom (Unsp spec) Final report Normal [facility] Work Phone: Comment on above: PATIENT NOT FASTINGP ERFORMED BY: [facility] Hvksfa5072 [facility] [id number] Information: SRC: THROAT Bacteria identified Respiratory culture Nom (Unsp spec) RRF Normal [facility] Work Phone: Comment on above: Routine respiratory aparna PATIENT NOT FASTINGP ERFORMED BY: [employer] Dqtvmq5500 [facility] [id number] Information: SRC: THROAT CBC WITH MANUAL DIFF (33343) Ordered By: Clinical Operations Manager on 06-13-2012 Basophils #/vol (Bld) 0.0 {x10E3/uL} Normal 0.0-0.2 [facility] Work Phone: Comment on above: PATIENT WAS FASTINGP ERFORMED BY: S7 [employer] Amn0671 [facility] [id number] BY: SHERLY Barbourlin6370 [facility] [id number] Basophils (Bld) [#/Vol] 0.0 10*3/uL Normal 0.0-0.2 [facility] Work Phone: Comment on above: PATIENT WAS FASTINGP ERFORMED BY: S7 [employer] Yas0378 [facility] [id number] BY: SHERLY Kumar70 [facility] [id number] Basophils Auto #/vol (Bld) 0.0 {x10E3/uL} Normal 0.0-0.2 [facility] Work Phone: Basophils/100 WBC (Bld) 1 % Normal 0-3 [facility] Work Phone: Comment on above: PATIENT WAS FASTINGP ERFORMED BY: [employer] Tdx[address] [place] [address] [id number] BY: SHERLY Otoole6370 [facility] [id number] Basophils/100 WBC Auto (Bld) 1 % Normal 0-3 [facility] Work Phone: Eosinophils #/vol (Bld) 0.3 {x10E3/uL} Normal 0.0-0.4 [facility] Work Phone: Comment on above: PATIENT WAS FASTINGP ERFORMED BY: [employer] Oyi5914 [facility] [id number] BY: SHERLY Otoole6370 [facility] [id number] Eosinophils (Bld) [#/Vol] 0.3 10*3/uL Normal 0.0-0.4 [facility] Work Phone: Comment on above: PATIENT WAS FASTINGP ERFORMED BY: S7 [employer] Ixb4576 [facility] [id number] BY: SHERLY [facility] Mxkwhy2734 Martinez RoadCrawley Memorial Hospitalin [place] [id number] Eosinophils Auto #/vol (Bld) 0.3 {x10E3/uL} Normal 0.0-0.4 [facility] Work Phone: Eosinophils/100 WBC (Bld) 6 % Normal 0-7 [facility] Work Phone: Comment on above: PATIENT WAS FASTINGP ERFORMED BY: S7 [employer] Vuf1735 [facility] [id number] BY: SHERLY [facility] Evxtfa6[address] [facility] [id number] Eosinophils/100 WBC Auto (Bld) 6 % Normal 0-7 [facility] Work Phone: Erythrocyte distribution width Auto Ratio (RBC) 13.6 % Normal 12.3-15.4 [facility] Work Phone: Erythrocyte distribution width Ratio (RBC) 13.6 % Normal 12.3-15.4 [facility] Work Phone: Comment on above: PATIENT WAS FASTINGP ERFORMED BY: S7 [employer] Zsq2822 [facility] [id number] BY: SHERLY [facility] Stddjl2710 [facility] [id number] Hematocrit Auto Volume Fraction (Bld) 42.8 % Normal 37.5-51.0 [facility] Internal Medicine Work Phone: Hematocrit Volume Fraction (Bld) 42.8 % Normal 37.5-51.0 [facility] Work Phone: Comment on above: PATIENT WAS FASTINGP ERFORMED BY: S7 [employer] Zhr0876 [facility] [id number] BY: SHERLY [facility] Tpphfr8145 [facility] [id number] Hemoglobin mass conc (Bld) 14.4 g/dL Normal 12.6-17.7 [facility] Work Phone: Comment on above: PATIENT WAS FASTINGP ERFORMED BY: [employer] Juo0954 [facility] [id number] BY: SHERLY [facility] Fejwkz7820 [address] RoadDublin [place] [id number] Immature granulocytes #/vol (Bld) 0.0 {x10E3/uL} Normal 0.0-0.1 [facility] Work Phone: Comment on above: PATIENT WAS FASTINGP ERFORMED BY: [employer] Nbc1698 [facility] [id number] BY: SHERLY LabConancy BarbourYtumkq6420 [address] RoadDublin [place] [id number] Immature granulocytes (Bld) [#/Vol] 0.0 10*3/uL Normal 0.0-0.1 [facility] Work Phone: Comment on above: PATIENT WAS FASTINGP ERFORMED BY: [employer] Xhu3298 [facility] [id number] BY: SHERLY LabConancy BarbourXdbdkx7426 [address] RoadDublin [place] [id number] Immature granulocytes/100 WBC (Bld) 0 % Normal 0-2 [facility] Work Phone: Comment on above: PATIENT WAS FASTINGP ERFORMED BY: [employer] Xoj4142 [facility] [id number] BY: SHERLY LabSaroj Otoole6370 [address] RoadDublin [place] [id number] Lymphocytes #/vol (Bld) 1.6 {x10E3/uL} Normal 0.7-4.5 [facility] Work Phone: Comment on above: PATIENT WAS FASTINGP ERFORMED BY: [employer] Uuv6035 [facility] [id number] BY: SHERLY [facility] Mvrvqg3446 [address] RoadDublin [place] [id number] Lymphocytes (Bld) [#/Vol] 1.6 10*3/uL Normal 0.7-4.5 [facility] Work Phone: Comment on above: PATIENT WAS FASTINGP ERFORMED BY: [employer] Iln0854 [facility] [id number] BY: SHERLY LabSaroj BarbourJpmgde7253 [facility] [id number] Lymphocytes Auto #/vol (Bld) 1.6 {x10E3/uL} Normal 0.7-4.5 [facility] Work Phone: Lymphocytes/100 WBC (Bld) 32 % Normal 14- [facility] Work Phone: Comment on above: PATIENT WAS FASTINGP ERFORMED BY: [employer] [address] [place] [address] [id number] BY: SHERLY [facility] HospitalSaroj BarbourFctqns2287 [facility] [id number] Lymphocytes/100 WBC Auto (Bld) 32 % Normal - [facility] Work Phone: MCH Auto Entitic mass (RBC) 30.7 pg Normal 26.6-33.0 [facility] Work Phone: MCH Entitic mass (RBC) 30.7 pg Normal 26.6-33.0 [facility] Work Phone: Comment on above: PATIENT WAS FASTINGP ERFORMED BY: [employer] Sij0836 [facility] [id number] BY: SHERLY [facility] HospitalSaroj BarbourQabcjz8054 [facility] [id number] MCHC Auto mass conc (RBC) 33.6 g/dL Normal 31.5-35.7 [facility] Work Phone: MCHC mass conc (RBC) 33.6 g/dL Normal 31.5-35.7 [facility] Internal Medicine Work Phone: Comment on above: PATIENT WAS FASTINGP ERFORMED BY: [employer] Rtt0594 [facility] [id number] BY: SHERLY LabSaroj BarbourVugxua8272 [facility] [id number] MCV Auto Entitic volume (RBC) 91 fL Normal 79-97 [facility] Work Phone: MCV Entitic volume (RBC) 91 fL Normal 79-97 [facility] Work Phone: Comment on above: PATIENT WAS FASTINGP ERFORMED BY: [employer] Bda3093 [facility] [id number] BY: SHERLY LabConancy BarbourTbnofj3001 [address] RoadDublin [place] [id number] Monocytes #/vol (Bld) 0.4 {x10E3/uL} Normal 0.1-1.0 [facility] Work Phone: Comment on above: PATIENT WAS FASTINGP ERFORMED BY: [employer] Fgu2892 [facility] [id number] BY: SHERLY LabConancy BarbourPdpsrs4804 [address] RoadDublin [place] [id number] Monocytes (Bld) [#/Vol] 0.4 10*3/uL Normal 0.1-1.0 [facility] Work Phone: Comment on above: PATIENT WAS FASTINGP ERFORMED BY: [employer] Olg7045 [facility] [id number] BY: SHERLY LabSaroj BarbourVitree0948 [address] RoadCrawley Memorial Hospitalin [place] [id number] Monocytes Auto #/vol (Bld) 0.4 {x10E3/uL} Normal 0.1-1.0 [facility] Work Phone: Monocytes/100 WBC (Bld) 8 % Normal 4-13 [facility] Work Phone: Comment on above: PATIENT WAS FASTINGP ERFORMED BY: [employer] Gdq4073 [facility] [id number] BY: SHERLY LabConancy Eesvdl7412 [facility] [id number] Monocytes/100 WBC Auto (Bld) 8 % Normal 4-13 [facility] Work Phone: Neutrophils #/vol (Bld) 2.6 {x10E3/uL} Normal 1.8-7.8 [facility] Work Phone: Comment on above: PATIENT WAS FASTINGP ERFORMED BY: S7 [employer] Xmc1187 [facility] [id number] BY: SHERLY Otoole6370 [address] RoadNov[facility] Health [facility] [id number] Neutrophils (Bld) [#/Vol] 2.6 10*3/uL Normal 1.8-7.8 [facility] Work Phone: Comment on above: PATIENT WAS FASTINGP ERFORMED BY: S7 [employer] Oqa2207 [facility] [id number] BY: SHERLY Kumar70 [address] RoadNovant Health [facility] [id number] Neutrophils Auto #/vol (Bld) 2.6 {x10E3/uL} Normal 1.8-7.8 [facility] Work Phone: Neutrophils/100 WBC (Bld) 53 % Normal 40-74 [facility] Work Phone: Comment on above: PATIENT WAS FASTINGP ERFORMED BY: S7 [employer] Byc0399 [facility] [id number] BY: SHERLY Otoole6370 [facility] [id number] Neutrophils/100 WBC Auto (Bld) 53 % Normal 40-74 [facility] Work Phone: Platelets #/vol (Bld) 256 {x10E3/uL} Normal 140-415 [facility] Work Phone: Comment on above: PATIENT WAS FASTINGP ERFORMED BY: S7 [employer] Dcr3950 [facility] [id number] BY: SHERLY Barbourlin6370 [facility] [id number] Platelets (Bld) [#/Vol] 256 10*3/uL Normal 140-415 [facility] Work Phone: Comment on above: PATIENT WAS FASTINGP ERFORMED BY: S7 [employer] Csp6644 [facility] [id number] BY: SHERLY Henriquezrp Boywph5048 [facility] [id number] Platelets Auto #/vol (Bld) 256 {x10E3/uL} Normal 140-415 [facility] Work Phone: RBC #/vol (Bld) 4.69 {x10E6/uL} Normal 4.14-5.80 Comp [facility] Internal Medicine Work Phone: Comment on above: PATIENT WAS FASTINGP ERFORMED BY: [employer] Phr0396 [facility] [id number] BY: SHERLY [facility]6370 [facility] [id number] RBC (Bld) [#/Vol] 4.69 10*6/uL Normal 4.14-5.80 Compr [facility] Internal Medicine Work Phone: Comment on above: PATIENT WAS FASTINGP ERFORMED BY: [employer] Flh9263 [facility] [id number] BY: SHERLY [facility] Kambqw8663 [facility] [id number] RBC Auto #/vol (Bld) 4.69 {x10E6/uL} Normal 4.14-5.80 [facility] Internal Medicine Work Phone: WBC #/vol (Bld) 4.9 {x10E3/uL} Normal 4.0-10.5 Compr [facility] Internal Medicine Work Phone: Comment on above: PATIENT WAS FASTINGP ERFORMED BY: [employer] Jqu2240 [facility] [id number] BY: [facility]6370 [facility] [id number] WBC (Bld) [#/Vol] 4.9 10*3/uL Normal 4.0-10.5 [facility] Work Phone: Comment on above: PATIENT WAS FASTINGP ERFORMED BY: [employer] Hma3230 [facility] [id number] BY: SHERLY [facility]6370 [facility] [id number] WBC Auto #/vol (Bld) 4.9 {x10E3/uL} Normal 4.0-10.5 [facility] Work Phone: Hemoglobin Glyclated (HGB A1 C) (48860)Ordered By: Clinical Operations Manager on 06-13-2012 Hemoglobin A1c/Hemoglobin.total mass fraction (Bld) 6.8 % Abnormal 4.8-5.6 Comprehensiv e Internal Medicine Work Phone: Comment on above: . Increased risk for diabetes: 5.7 - 6.4 Diabetes: >6.4 Glycemic control for adults with diabetes: <7.0 PATIENT WAS FASTINGP ERFORMED BY: Leticia [employer] Csn3578 [facility] [id number] BY: SHERLY [employer] Ppwywe7244 [facility] [id number] LIPOPROTEIN, BLD, BY NMR (31 566)Ordered By: Clinical Operations Manager on 06-13-2012 Cholesterol in HDL mass conc 81 mg/dL Normal [facility] Work Phone: Comment on above: PATIENT WAS FASTINGP ERFORMED BY: Leticia [employer] Qfv5045 [facility] [id number] BY: SHERLY [facility] HospitalCarsabiTrinitas HospitalYbiwgx3614 [facility] [id number] Information: [id number] Cholesterol in LDL mass conc 95 mg/dL Normal [facility] Work Phone: Comment on above: . Optimal < 100 Abov e optimal 100 - 129 Borderline 130 - 159 High 160 - 189 Very high > 189 . PATIENT WAS FASTINGP ERFORMED BY: S7 [employer] Dhs4704 [facility] [id number] BY: SHERLY [facility] HospitalCarsabiTrinitas HospitalCujsxa6727 [facility] [id number] Information: [id number] Cholesterol mass conc 185 mg/dL Normal [facility] prehensive Internal Medicine Work Phone: Comment on above: PATIENT WAS FASTINGP ERFORMED BY: S7 [employer] Tfj9728 [facility] [id number] BY: [place] 4346270 [facility] [id number] Information: [id number] Lipoprotein.alpha molar conc 33.3 umol/L Normal [facility] Work Phone: Comment on above: PATIENT WAS FASTINGP ERFORMED BY: S7 [employer] Eki3928 [facility] [id number] BY: [place] 4346270 [facility] [id number] Information: 469277,[id number] Lipoprotein.beta.subp article Entitic length 21.3 nm Normal [facility] Work Phone: Comment on above: INTERPRETATIVE INFORMATION PARTICLE CONCENTRATION AND SIZE <--Lower CVD Risk Higher CVD Risk--> LDL AND HDL PARTICLES Percentile in Reference Population HDL-P (total) High 75th 50th 25th Low >34.9 34.9 30.5 26.7 <26.7 . Small LDL-P Low 25th 50th 75th High <117 117 527 839 >839 . LDL Size <-Large (Pattern A)-> <-Small (Pattern B)-> 23.0 20.6 20.5 19.0 PATIENT WAS FASTINGP ERFORMED BY: S7 [employer] Zbd5683 [facility] [id number] BY: [facility]6370 [facility] [id number] Information: [id number],Q06028 Lipoprotein.beta.subp article molar conc 817 nmol/L Normal [facility] Work Phone: Comment on above: Low < 1000 Moderate 1000 - 1299 Borderline-High 1300 - 1599 High 1600 - 2000 Very High > 2000 PATIENT WAS FASTINGP ERFORMED BY: S7 [employer] Kwd0011 [facility] [id number] BY: SHERLY [facility] Qeiozv9498 [facility] [id number] Information: [id number],[id number] Lipoprotein.beta.subp article.small molar conc < 90 Normal [facility] Work Phone: Comment on above: PATIENT WAS FASTINGP ERFORMED BY: S7 [employer] Uon4734 [facility] [id number] BY: SHERLY [facility] Iybpnp0227 [facility] [id number] Information: 250955,R89343 Triglyceride mass conc 46 mg/dL Normal [facility] Work Phone: Comment on above: PATIENT WAS FASTINGP ERFORMED BY: S7 [employer] Pmv6714 [facility] [id number] BY: SHERLY [facility] Lwipzd4524 [facility] [id number] Information: [id number] METABOLIC PANEL, COMPREHENSI VE (03721)Ordered By: Clinical Operations Manager on 06-13-2012 Albumin mass conc 4.2 g/dL Normal 3.5-5.5 Compreh ensive Internal Medicine Work Phone: Comment on above: PATIENT WAS FASTINGP ERFORMED BY: S7 [employer] Enn0014 [facility] [id number] BY: SHERLY [facility] Trceis3659 [facility] [id number] Albumin/Globulin mass ratio 1.8 {ratio} Normal 1.1-2.5 [facility] Work Phone: Comment on above: PATIENT WAS FASTINGP ERFORMED BY: S7 [employer] Aks0322 [facility] [id number] BY: SHERLY [facility] Hzupli1473 [address] RoadDublin [place] [id number] ALP [Catalytic activity/Vol] 58 U/L Normal 25-150 [facility] Work Phone: Comment on above: PATIENT WAS FASTINGP ERFORMED BY: [employer] Npf2072 [facility] [id number] BY: SHERLY [facility] Vrpclv9702 [address] RoadDublin [place] [id number] ALP enzyme act/vol 58 [iU]/L Normal 25-150 [facility] Internal Medicine Work Phone: Comment on above: PATIENT WAS FASTINGP ERFORMED BY: [employer] Nxh1823 [facility] [id number] BY: SHERLY [facility] Nycstl8822 [address] RoadDublin [place] [id number] ALT [Catalytic activity/Vol] 14 U/L Normal 0-44 [facility] Work Phone: Comment on above: PATIENT WAS FASTINGP ERFORMED BY: [employer] Hzf2893 [facility] [id number] BY: SHERLY [facility] Pakjlq1952 [address] RoadDublin [place] [id number] ALT enzyme act/vol 14 [iU]/L Normal 0-44 [facility] Internal Medicine Work Phone: Comment on above: PATIENT WAS FASTINGP ERFORMED BY: [employer] Esi5243 [facility] [id number] BY: SHERLY [facility] Sqkniq2271 [address] RoadDublin [place] [id number] AST [Catalytic activity/Vol] 24 U/L Normal 0-40 [facility] Work Phone: Comment on above: PATIENT WAS FASTINGP ERFORMED BY: [employer] Qcr4075 [facility] [id number] BY: SHERLY [facility] Ywosla6482 [address] RoadDublin [place] [id number] AST enzyme act/vol 24 [iU]/L Normal 0-40 [facility] Hospitale novant healthive Internal Medicine Work Phone: Comment on above: PATIENT WAS FASTINGP ERFORMED BY: S7 [employer] Gke9115 [facility] [id number] BY: SHERLY [facility] Qjuopv7796 [address] RoadDublin [place] [id number] Bilirubin mass conc 0.6 mg/dL Normal 0.0-1.2 Compr ensive Internal Medicine Work Phone: Comment on above: PATIENT WAS FASTINGP ERFORMED BY: S7 [employer] Xzq0243 [facility] [id number] BY: SHERLY [facility] Iyfmgm9017 [address] RoadDublin [place] [id number] Calcium mass conc 9.3 mg/dL Normal 8.7-10.2 Compreh [facility] centerive Internal Medicine Work Phone: Comment on above: PATIENT WAS FASTINGP ERFORMED BY: S7 [employer] Jcb2291 [facility] [id number] BY: SHERLY [facility] Jljced5641 [address] RoadDublin [place] [id number] Chloride molar conc 99 mmol/L Normal 97-108 [facility] Centerensive Internal Medicine Work Phone: Comment on above: PATIENT WAS FASTINGP ERFORMED BY: S7 [employer] Xqt5640 [facility] [id number] BY: SHERLY [facility] Memoin8751 [address] RoadDublin [place] [id number] CO2 molar conc 26 mmol/L Normal 20-32 Comprehens [facility] Internal [facility] Work Phone: Comment on above: PATIENT WAS FASTINGP ERFORMED BY: S7 [employer] Wvf9401 [facility] [id number] BY: SHERLY [facility] Ucguhr5718 [address] RoadDublin [place] [id number] Creatinine mass conc 1.14 mg/dL Normal 0.76-1.27 Comp [facility] centerensive Internal Medicine Work Phone: Comment on above: PATIENT WAS FASTINGP ERFORMED BY: S7 [employer] Pyd9982 [facility] [id number] BY: SHERLY [facility] Oorzvj4252 [address] RoadDublin [place] [id number] GFR/1.73 sq M predicted among blacks CKD-EPI vol rate/area (S/P/Bld) 88 mL/min/1.73 Normal Comprehensiv e Internal Medicine Work Phone: Comment on above: PATIENT WAS FASTINGP ERFORMED BY: Leticia [employer] Hbk7485 [facility] [id number] BY: SHERLY [facility] Jiboil6738 [address] RoadDublin [place] [id number] GFR/1.73 sq M predicted among non-blacks CKD-EPI vol rate/area (S/P/Bld) 76 mL/min/1.73 Normal [facility] Work Phone: Comment on above: PATIENT WAS FASTINGP ERFORMED BY: S7 [employer] Bha0750 [facility] [id number] BY: SHERLY [facility] Lrellk7041 [address] RoadCrawley Memorial Hospitalin [place] [id number] Globulin Calculated mass conc (S) 2.4 g/dL Normal 1.5-4.5 [facility] Work Phone: Globulin mass conc (S) 2.4 g/dL Normal 1.5-4.5 [facility] Work Phone: Comment on above: PATIENT WAS FASTINGP ERFORMED BY: S7 [employer] Dka7241 [facility] [id number] BY: SHERLY [facility] Mwekuk6411 [address] RoadDuin [place] [id number] Glucose mass conc 73 mg/dL Normal 65-99 Compreh ensive Internal Medicine Work Phone: Comment on above: PATIENT WAS FASTINGP ERFORMED BY: S7 [employer] Wab9642 [facility] [id number] BY: SHERLY [facility] Afthox5070 [address] RoadDublin [place] [id number] Potassium molar conc 4.3 mmol/L Normal 3.5-5.2 Comp rehensive Internal Medicine Work Phone: Comment on above: PATIENT WAS FASTINGP ERFORMED BY: S7 [employer] Chh1002 [facility] [id number] BY: SHERLY [facility] Tzhrrs3077 [address] RoadDublin [place] [id number] Protein mass conc 6.6 g/dL Normal 6.0-8.5 Compreh ensive Internal Medicine Work Phone: Comment on above: PATIENT WAS FASTINGP ERFORMED BY: S7 [employer] Tvh1886 [facility] [id number] BY: SHERLY [facility] Tjdahk7378 [address] RoadDuin [place] [id number] Sodium molar conc 138 mmol/L Normal 134-144 Compreh ensive Internal Medicine Work Phone: Comment on above: PATIENT WAS FASTINGP ERFORMED BY: S7 [employer] Upx6628 [facility] [id number] BY: SHERYL [facility] Hsbekd6340 [address] RoadDuin [place] [id number] Urea nitrogen mass conc 21 mg/dL Normal 6-24 [facility] Work Phone: Comment on above: PATIENT WAS FASTINGP ERFORMED BY: S7 [employer] Hsv3692 [facility] [id number] BY: SHERLY [facility] Immcfc2643 [address] RoadDublin [place] [id number] Urea nitrogen/Creatinine mass ratio 18 mg/mg Normal 9-20 [facility] Work Phone: Comment on above: PATIENT WAS FASTINGP ERFORMED BY: S7 [employer] Hrj2931 [facility] [id number] BY: SHERLY [facility] Dfikjx2088 [address] RoadDublin [place] [id number] T4, FREE (THYROXINE) (22427) Ordered By: Clinical Operations Manager on 06-13-2012 T4 free mass conc 1.10 ng/dL Normal 0.82-1.77 Compreh ensive Internal Medicine Work Phone: Comment on above: PATIENT WAS FASTINGP ERFORMED BY: S7 [employer] Qvm2705 [facility] [id number] BY: SHERLY ExpaniteTrinitas HospitalYkkcyv4149 [facility] [id number] TSH (93927)Ordered By: Silvia garcía Allergy And Immunology Specialist on 06-13-2012 Thyrotropin Qn 25.370 {uIU/mL} Abnormal 0.450-4.50 0 [facility] Work Phone: Comment on above: PATIENT WAS FASTINGP ERFORMED BY: S7 [employer] Cax4024 [facility] [id number] BY: SHERLY [facility] HospitalCarsabiTrinitas HospitalPylfxs0734 [facility] [id number] CBCD,SMEAR DIFFOrdered By: Radha rdztem Allergy And Immunology Specialist on 03-22-2010 Eosinophils/100 WBC (Bld) 4 % Normal 0-5 [facility] Work Phone: Eosinophils/100 WBC Auto (Bld) 4 % Normal 0-5 [facility] Work Phone: Erythrocyte distribution width Auto Ratio (RBC) 12.5 % Normal 11.6-14.6 [facility] Work Phone: Erythrocyte distribution width Ratio (RBC) 12.5 % Normal 11.6-14.6 [facility] Work Phone: Hematocrit Auto Volume Fraction (Bld) 40.0 % Normal 40-54 Comprehens [facility] Work Phone: Hematocrit Volume Fraction (Bld) 40.0 % Normal 40-54 [facility] Work Phone: Hemoglobin mass conc (Bld) 14.0 g/dL Normal 14.0-18.0 [facility] Work Phone: Lymphocytes/100 WBC (Bld) 11 % Abnormal 19-41 [facility] Work Phone: Lymphocytes/100 WBC Auto (Bld) 11 % Abnormal 19-41 [facility] Work Phone: MCH Auto Entitic mass (RBC) 32.7 pg Abnormal 27.0-32.0 [facility] Work Phone: MCH Entitic mass (RBC) 32.7 pg Abnormal 27.0-32.0 [facility] Work Phone: MCHC Auto mass conc (RBC) 35.0 g/dL Normal 32-36 [facility] Work Phone: MCHC mass conc (RBC) 35.0 g/dL Normal 32-36 Comp rehensive Internal Medicine Work Phone: MCV Auto Entitic volume (RBC) 93.6 fL Normal 80-94 [facility] Work Phone: MCV Entitic volume (RBC) 93.6 fL Normal 80-94 [facility] Work Phone: Monocytes/100 WBC (Bld) 10 % Normal 0-10 [facility] Work Phone: Monocytes/100 WBC Auto (Bld) 10 % Normal 0-10 [facility] Work Phone: Neutrophils #/vol (Bld) 4.9 3/uL Normal 2.0-7.7 [facility] Work Phone: Neutrophils Auto #/vol (Bld) 4.9 3/uL Normal 2.0-7.7 [facility] Internal Medicine Work Phone: Platelets #/vol (Bld) SeeNote Normal Com prehensive Internal Medicine Work Phone: Comment on above: Result: ADEQUATE Platelets #/vol (Bld) 319 10*3/uL Normal 150-[address] [facility]erehens[facility] Internal Medicine Work Phone: Platelets Auto #/vol (Bld) 319 10*3/uL Normal 150-450 [facility] Work Phone: RBC #/vol (Bld) 4.28 {M/mm3} Abnormal 4.6-6.2 Compreh [facility] Internal [facility] Work Phone: RBC Auto #/vol (Bld) 4.28 {M/mm3} Abnormal 4.6-6.[address] [facility]erehens[facility] Internal Medicine Work Phone: WBC #/vol (Bld) 6.7 10*3/uL Normal 4.4-11.0 [facility] Work Phone: WBC Auto #/vol (Bld) 6.7 10*3/uL Normal 4.4-11.0 Com prehensive Internal Medicine Work Phone: CBCD,SMEAR DIFF SeeNote Normal [facility]pre[facility]st[facility] Internal Medicine Work Phone: Comment on above: Result: NORM C+C Result: ADEQUATE CBCD,SMEAR DIFF 75 % Abnormal 47-70 [facility] Internal [facility] Work Phone: CBCD,SMEAR DIFF 100 1 Normal [facility]pre[facility]st[facility] Internal Medicine Work Phone: ESROrdered By: System Manage r on 03-22-2010 ESR Velocity (Bld) 11 mm/h Normal 0-15 [facility] Internal Medicine Work Phone: TSHOrdered By: System Manage r on 07-21-2009 Thyrotropin Qn 0.378 {uIU/mL} Abnormal 0.450-4.50 0 [facility] Internal Medicine Work Phone: Comment on above: PERFORMED BY: [place] [id number] Thyroxine (T4) Free, Direct, SOrdered By: Clinical Operations Manager on 07-21-2009 T4 free mass conc 2.10 ng/dL Abnormal 0.82-1.77 [facility] Work Phone: Comment on above: PERFORMED BY: [employer] IT Management ServicesJobool [place] [id number] Triiodothyronine,Free,SerumO rdered By: Clinical Operations Manager on 07-21-2009 T3 free mass conc 2.9 pg/mL Normal 2.0-4.4 [facility] Work Phone: Comment on above: PERFORMED BY: [facility] Management ServicesC[facility] [id number] LOWER EXT/JT ONLY (ROUTINE)O rdered By: Clinical Operations Manager on 04-22-2009 LOWER EXT/JT ONLY (ROUTINE) See Note Normal [facility] Work Phone: Comment on above: Exam Number: [id number] CLINICAL:43-year-old male with right knee pain. No prior injury. MRI RIGHT KNEE COMPARISON:None. TECHNIQUE: Standardized fat and water weighted pulse sequences were obtained in all 3 orthogonal planes. FINDINGS: There is a horizontal cleavage tear of the medial meniscus with associated parameniscal cysts measuring up to 1.5 cm adjacent to the posterior and anterior horns (coronal STIR series, images 5-13). There is greater than a 50% loss of hyaline cartilage thickness, without exposure of the subchondral bone of the medial femorotibial compartment (Grade III, Outerbridge classification). There is cancellous marrow edema of the medial tibial plateau, consistent with a reactive marrow stress phenomena. There is a sprain of the MCL, with superficial periligamentous edema, without a focal discontinuity (coronal STIR series 11, image 9). Normal distal semimembranosus, gracilis and semitendinosus tendons. Normal lateral meniscus without a meniscal tear. There is less than a 50% loss of hyaline cartilage thickness, without exposure of the subchondral bone of the lateral femorotibial compartment (Grade II, Outerbridge classification). Normal lateral femoral condyle and lateral tibial plateau. There is a normal iliotibial band. The lateral collateral fibular ligament is normal without a ligamentous sprain. The popliteus tendon is normal. Normal biceps femoris tendon. The proximal tibiofibular articulation is normal. The anterior cruciate ligament is normal without a sprain. Normal posterior cruciate ligament. Normal congruent patellofemoral articulation. There is less than a 50% loss of hyaline cartilage thickness, without exposure of the subchondral bone of the medial and lateral patellar facets (Grade II, Outerbridge classification). Normal hyaline cartilage of the medial and lateral trochlear condyles. The medial and lateral patellar retinaculum are normal. Normal quadriceps tendon. Normal patellar tendon. Normal Hoffa's infrapatellar fat pad. There is a small suprapatellar pouch joint effusion. There is no popliteal cyst. There is no extravasated joint effusion. The visualized osseous structures, including the distal femur, proximal tibia and fibula are otherwise normal. The visualized muscle groups of the distal thigh and proximal leg are normal. IMPRESSION:Horizontal cleavage tear of the medial meniscus with associated parameniscal cysts and tibial reactive edema. 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 Small joint effusion. Grade 1 MCL sprain. Reported By: JESSIE ZIMMER M.D. KNEE,4 OR MORE VIEWS (MT)Ord ered By: Clinical Operations Manager on 03-18-2009 KNEE,4 OR MORE VIEWS (MT) See Note Normal [facility] Work Phone: Comment on above: Exam Number: [id number] RIGHT KNEE SERIES AND LEFT KNEE SERIES HISTORYA 43-year-old man with right greater than left knee pain. Progressing for a long time. Four views of the left knee. Mild chondrocalcinosis greater in the lateral compartment than themedial compartment. Cortical outlines are intact. The bones arenormally aligned and the joint spaces are well maintained. Nodefinite evidence of effusion. Soft tissues are otherwiseunremarkable. IMPRESSIONMild chondrocalcinosis which is classically associated withhyperparathyroidism, CPPD deposition disease, or hemochromatosis. Otherwise unremarkable. Four views of the right knee. Moderate medial joint space narrowing. Chondrocalcinosis which ismoderate throughout cartilage of the right knee and greater than thatseen in the left knee. Cortical outlines are intact. The bones arenormally aligned and the joint spaces are well maintained. Noapparent effusion. Soft tissues are otherwise unremarkable. IMPRESSION1) Moderate chondrocalcinosis in the right knee associated also withmoderate medial joint space narrowing. Findings are consistent with asecondary arthritic change in addition to the chondrocalcinosis. Chondrocalcinosis is typically associated with CPPD deposition,hyperparathyroidism, or hemochromatosis. Reported By: KIRT LARIOS M.D. Exam Number: [id number] RIGHT KNEE SERIES AND LEFT KNEE SERIES HISTORYA 43-year-old man with right greater than left knee pain. Progressing for a long time. Four views of the left knee. Mild chondrocalcinosis greater in the lateral compartment than themedial compartment. Cortical outlines are intact. The bones arenormally aligned and the joint spaces are well maintained. Nodefinite evidence of effusion. Soft tissues are otherwiseunremarkable. IMPRESSIONMild chondrocalcinosis which is classically associated withhyperparathyroidism, CPPD deposition disease, or hemochromatosis. Otherwise unremarkable. Four views of the right knee. Moderate medial joint space narrowing. Chondrocalcinosis which ismoderate throughout cartilage of the right knee and greater than thatseen in the left knee. Cortical outlines are intact. The bones arenormally aligned and the joint spaces are well maintained. Noapparent effusion. Soft tissues are otherwise unremarkable. IMPRESSION1) Moderate chondrocalcinosis in the right knee associated also withmoderate medial joint space narrowing. Findings are consistent with asecondary arthritic change in addition to the chondrocalcinosis. Chondrocalcinosis is typically associated with CPPD deposition,hyperparathyroidism, or hemochromatosis. Reported By: KIRT LARIOS M.D. TSHOrdered By: System Manage r on 03-18-2009 Thyrotropin Qn 0.134 {uIU/mL} Abnormal 0.450-4.50 0 [facility] Work Phone: Comment on above: PERFORMED BY: [employer] [address] [id number] CBC With Differential/Platel etOrdered By: Clinical Operations Manager on 12-14-2008 Basophils #/vol (Bld) 0.1 {x10E3/uL} Normal 0.0-0.2 [facility] Work Phone: Comment on above: A courtesy copy of t his report has been sent [phone].PATIENT WAS FASTINGClinical Information: CC:[id number] PERFORMED BY: [employer] Esbkhv6019 [facility] [id number] Basophils Auto #/vol (Bld) 0.1 {x10E3/uL} Normal 0.0-0.2 [facility] Work Phone: Basophils/100 WBC (Bld) 1 % Normal 0-3 [facility] Work Phone: Comment on above: A courtesy copy of t his report has been sent [phone].PATIENT WAS FASTINGClinical Information: CC:[id number] PERFORMED BY: [employer] Zvwalm3255 [facility] [id number] Basophils/100 WBC Auto (Bld) 1 % Normal 0-3 [facility] Work Phone: Eosinophils #/vol (Bld) 0.2 {x10E3/uL} Normal 0.0-0.4 [facility] Work Phone: Comment on above: A courtesy copy of t his report has been sent [phone].PATIENT WAS FASTINGClinical Information: [id number] PERFORMED BY: SHERLY [employer] [facility] [id number] Eosinophils Auto #/vol (Bld) 0.2 {x10E3/uL} Normal 0.0-0.4 [facility] Work Phone: Eosinophils/100 WBC (Bld) 4 % Normal 0-7 [facility] Work Phone: Comment on above: A courtesy copy of t his report has been sent [phone].PATIENT WAS FASTINGClinical Information: [id number] PERFORMED BY: [employer] [place] [address] [id number] Eosinophils/100 WBC Auto (Bld) 4 % Normal 0-7 [facility] Work Phone: Erythrocyte distribution width Auto Ratio (RBC) 13.7 % Normal 11.7-15.0 [facility] Work Phone: Erythrocyte distribution width Ratio (RBC) 13.7 % Normal 11.7-15.0 [facility] Internal Medicine Work Phone: Comment on above: A courtesy copy of t his report has been sent [phone].PATIENT WAS FASTINGClinical Information: [id number] PERFORMED BY: [employer]6370 [facility] [id number] Hematocrit Auto Volume Fraction (Bld) 47.0 % Normal 36.0-50.0 [facility] Internal Medicine Work Phone: Hematocrit Volume Fraction (Bld) 47.0 % Normal 36.0-50.0 [facility] Internal Medicine Work Phone: Comment on above: A courtesy copy of t his report has been sent [phone].PATIENT WAS FASTINGClinical Information: [id number] PERFORMED BY: [employer] [id number] Hemoglobin mass conc (Bld) 16.1 g/dL Normal 12.5-17.0 [facility] Work Phone: Comment on above: A courtesy copy of t his report has been sent [phone].PATIENT WAS FASTINGClinical Information: [id number] PERFORMED BY: [facility] CenterCarsabi[address] [id number] Lymphocytes #/vol (Bld) 1.4 {x10E3/uL} Normal 0.7-4.5 [facility] Work Phone: Comment on above: A courtesy copy of t his report has been sent [phone].PATIENT WAS FASTINGClinical Information: [id number] PERFORMED BY: [facility] CenterCarsabi[address] [id number] Lymphocytes Auto #/vol (Bld) 1.4 {x10E3/uL} Normal 0.7-4.5 [facility] Work Phone: Lymphocytes/100 WBC (Bld) 27 % Normal 14-46 [facility] Work Phone: Comment on above: A courtesy copy of t his report has been sent [phone].PATIENT WAS FASTINGClinical Information: [id number] PERFORMED BY: [facility] CenterCarsabi[address] [id number] Lymphocytes/100 WBC Auto (Bld) 27 % Normal 14-46 [facility] Work Phone: MCH Auto Entitic mass (RBC) 31.7 pg Normal 27.0-34.0 [facility] Work Phone: MCH Entitic mass (RBC) 31.7 pg Normal 27.0-34.0 [facility] Work Phone: Comment on above: A courtesy copy of t his report has been sent [phone].PATIENT WAS FASTINGClinical Information: CC:[id number] PERFORMED BY: [employer] [facility] LabsTrinitas HospitalFtupjw0376 [facility] [id number] MCHC Auto mass conc (RBC) 34.2 g/dL Normal 32.0-36.0 [facility] Work Phone: MCHC mass conc (RBC) 34.2 g/dL Normal 32.0-36.0 Comp rehensive Internal Medicine Work Phone: Comment on above: A courtesy copy of t his report has been sent [phone].PATIENT WAS FASTINGClinical Information: CC:[id number] PERFORMED BY: [employer] [id number] MCV Auto Entitic volume (RBC) 93 fL Normal 80-98 [facility] Work Phone: MCV Entitic volume (RBC) 93 fL Normal 80-98 [facility] Work Phone: Comment on above: A courtesy copy of t his report has been sent [phone].PATIENT WAS FASTINGClinical Information: [id number] PERFORMED BY: [employer] Pharmaceuticalslin6370 [facility] [id number] Monocytes #/vol (Bld) 0.4 {x10E3/uL} Normal 0.1-1.0 [facility] Work Phone: Comment on above: A courtesy copy of t his report has been sent [phone].PATIENT WAS FASTINGClinical Information: [id number] PERFORMED BY: [employer] [id number] Monocytes Auto #/vol (Bld) 0.4 {x10E3/uL} Normal 0.1-1.0 [facility] Work Phone: Monocytes/100 WBC (Bld) 7 % Normal 4-13 [facility] Work Phone: Comment on above: A courtesy copy of t his report has been sent [phone].PATIENT WAS FASTINGClinical Information: CC:[id number] PERFORMED BY: [employer] Steoqc2451 [facility] [id number] Monocytes/100 WBC Auto (Bld) 7 % Normal 4-13 [facility] Work Phone: Neutrophils #/vol (Bld) 3.1 {x10E3/uL} Normal 1.8-7.8 [facility] Work Phone: Comment on above: A courtesy copy of t his report has been sent [phone].PATIENT WAS FASTINGClinical Information: CC:[id number] PERFORMED BY: [employer] Brwlzi3764 [facility] [id number] Neutrophils Auto #/vol (Bld) 3.1 {x10E3/uL} Normal 1.8-7.8 [facility] Work Phone: Neutrophils/100 WBC (Bld) 61 % Normal 40-74 [facility] Work Phone: Comment on above: A courtesy copy of t his report has been sent [phone].PATIENT WAS FASTINGClinical Information: CC:[id number] PERFORMED BY: [employer] Tyaxmc0639 [facility] [id number] Neutrophils/100 WBC Auto (Bld) 61 % Normal 40-74 [facility] Work Phone: Platelets #/vol (Bld) 249 {x10E3/uL} Normal 140-415 [facility] Work Phone: Comment on above: Please note refere nce interval change A courtesy copy of t his report has been sent [phone].PATIENT WAS FASTINGClinical Information: [id number] PERFORMED BY: [employer] Ctwqeh1947[address] [id number] Platelets Auto #/vol (Bld) 249 {x10E3/uL} Normal 140-415 [facility] Work Phone: Comment on above: Please note refere nce interval change RBC #/vol (Bld) 5.07 {x10E6/uL} Normal 4.10-5.60 [facility] Work Phone: Comment on above: A courtesy copy of t his report has been sent [phone].PATIENT WAS FASTINGClinical Information: CC:[id number] PERFORMED BY: [employer] Yjmibe1104 [facility] [id number] RBC Auto #/vol (Bld) 5.07 {x10E6/uL} Normal 4.10-5.60 [facility] Work Phone: WBC #/vol (Bld) 5.0 {x10E3/uL} Normal 4.0-10.5 [facility] Internal Medicine Work Phone: Comment on above: A courtesy copy of t his report has been sent [phone].PATIENT WAS FASTINGClinical Information: CC:[id number] PERFORMED BY: [employer] [facility] [id number] WBC Auto #/vol (Bld) 5.0 {x10E3/uL} Normal 4.0-10.5 [facility] Work Phone: Comp. Metabolic Panel (14)Or dered By: Clinical Operations Manager on 12-14-2008 Albumin mass conc 4.4 g/dL Normal 3.5-5.5 [facility] Internal Medicine Work Phone: Comment on above: A courtesy copy of t his report has been sent [phone].PATIENT WAS FASTINGPERFORMED BY: [employer] [facility] [id number] Albumin/Globulin mass ratio 1.6 {ratio} Normal 1.1-2.5 [facility] Internal Medicine Work Phone: Comment on above: A courtesy copy of t his report has been sent [phone].PATIENT WAS FASTINGPERFORMED BY: [employer] [facility] [id number] ALP enzyme act/vol 65 [iU]/L Normal 25-150 [facility] Work Phone: Comment on above: A courtesy copy of t his report has been sent [phone].PATIENT WAS FASTINGPERFORMED BY: [facility]Select [facility]6370 [facility] [id number] ALT enzyme act/vol 15 [iU]/L Normal 0-55 [facility] Internal Medicine Work Phone: Comment on above: A courtesy copy of t his report has been sent [phone].PATIENT WAS FASTINGPERFORMED BY: [facility]Select [facility]6370 [facility] [id number] AST enzyme act/vol 18 [iU]/L Normal 0-40 [facility] Internal Medicine Work Phone: Comment on above: A courtesy copy of t his report has been sent [phone].PATIENT WAS FASTINGPERFORMED BY: [facility]6370 [facility] [id number] Bilirubin mass conc 0.9 mg/dL Normal 0.1-1.2 [facility] Internal Medicine Work Phone: Comment on above: A courtesy copy of t his report has been sent [phone].PATIENT WAS FASTINGPERFORMED BY: [facility]Select [facility]6370 [facility] [id number] Calcium mass conc 10.5 mg/dL Normal 8.5-10.6 [facility] Work Phone: Comment on above: A courtesy copy of t his report has been sent [phone].PATIENT WAS FASTINGPERFORMED BY: [facility]6370 [facility] [id number] Chloride molar conc 101 mmol/L Normal 97-108 [facility] Internal Medicine Work Phone: Comment on above: A courtesy copy of t his report has been sent [phone].PATIENT WAS FASTINGPERFORMED BY: [facility]6370 [facility] [id number] CO2 molar conc 25 mmol/L Normal 20-32 [facility] Work Phone: Comment on above: A courtesy copy of t his report has been sent [phone].PATIENT WAS FASTINGPERFORMED BY: SHERLY [employer] Raqgyp5149 [facility] [id number] Creatinine mass conc 1.10 mg/dL Normal 0.76-1.27 Comp rehensive Internal Medicine Work Phone: Comment on above: A courtesy copy of t his report has been sent [phone].PATIENT WAS FASTINGPERFORMED BY: SHERLY [employer]70 [facility] [id number] GFR/1.73 sq M predicted among blacks MDRD vol rate/area (S/P/Bld) mL/min/{1.73_m2} Normal [facility] [place] Internal Medicine Work Phone: Comment on above: Note: Persistent red uction for 3 months or more in an eGFR<60 mL/min/1.73 m2 defines CKD. Patients with eGFR values>/=60 mL/min/1.73 m2 may also have CKD if evidence of persistentproteinuria is present. Additional information may be found [email or web address]. A courtesy copy of t his report has been sent [phone].PATIENT WAS FASTINGPERFORMED BY: SHERLY [employer]6370 [facility] [id number] GFR/1.73 sq M.predicted MDRD vol rate/area mL/min/{1.73_m2} Normal [facility] Work Phone: Comment on above: A courtesy copy of t his report has been sent [phone].PATIENT WAS FASTINGPERFORMED BY: [employer]70 [facility] [id number] Globulin Calculated mass conc (S) 2.7 g/dL Normal 1.5-4.5 [facility] Work Phone: Globulin mass conc (S) 2.7 g/dL Normal 1.5-4.5 [facility] Work Phone: Comment on above: A courtesy copy of t his report has been sent [phone].PATIENT WAS FASTINGPERFORMED BY: [facility]6370 [facility] [id number] Glucose mass conc 130 mg/dL Abnormal 65-99 Compreh ensive Internal Medicine Work Phone: Comment on above: A courtesy copy of t his report has been sent [phone].PATIENT WAS FASTINGPERFORMED BY: [facility]6370 [facility] [id number] Potassium molar conc 5.0 mmol/L Normal 3.5-5.2 Comp rehensive Internal Medicine Work Phone: Comment on above: A courtesy copy of t his report has been sent [phone].PATIENT WAS FASTINGPERFORMED BY: [facility]6370 [facility] [id number] Protein mass conc 7.1 g/dL Normal 6.0-8.5 Compreh ensive Internal Medicine Work Phone: Comment on above: A courtesy copy of t his report has been sent [phone].PATIENT WAS FASTINGPERFORMED BY: [facility]6370 [facility] [id number] Sodium molar conc 139 mmol/L Normal 135-145 Compreh ensive Internal Medicine Work Phone: Comment on above: A courtesy copy of t his report has been sent [phone].PATIENT WAS FASTINGPERFORMED BY: [facility]6370 [facility] [id number] Urea nitrogen mass conc 18 mg/dL Normal 5-26 [facility] Work Phone: Comment on above: A courtesy copy of t his report has been sent [phone].PATIENT WAS FASTINGPERFORMED BY: [facility]6370 [facility] [id number] Urea nitrogen/Creatinine mass ratio 16 mg/mg Normal 8-27 [facility] Work Phone: Comment on above: A courtesy copy of kirsten his report has been sent [phone].PATIENT WAS FASTINGPERFORMED BY: SHERLY [employer]70 [facility] [id number] Hemoglobin [id number] By: stem Allergy And Immunology Specialist on 12-14-2008 Hemoglobin A1c/Hemoglobin.total mass fraction (Bld) 7.0 % Abnormal Comprehensiv e Internal Medicine Work Phone: Comment on above: Diabetic Adult <7.0 Healthy Adult 4.8 - 5.9 (DCCT/NGSP) [place] [employer] Association's Summary of Glycemic Recommendations for Adults with Diabetes: Hemoglobin A1c <7.0%. More stringent glycemic goals (A1c <6.0%) may further reduce complications at the cost of increased risk of hypoglycemia. A courtesy copy of kirsten his report has been sent [phone].PATIENT WAS FASTINGPERFORMED BY: SHERLY [employer]abin[employer] BarbourQqomfh1513 [place] [employer])[facility] [id number] Lipid Panel With LDL/HDL Rat ioOrdered By: Clinical Operations Manager on 12-14-2008 Cholesterol in HDL mass conc 88 mg/dL Normal [facility] Work Phone: Comment on above: According to ATP-III Guidelines, HDL-C >59 mg/dL is considered anegative risk factor for CHD. A courtesy copy of kirsten his report has been sent [phone].PATIENT WAS FASTINGPERFORMED BY: SHERLY O[employer]ole6370 [facility] [id number] Cholesterol in LDL mass conc 76 mg/dL Normal 0-99 [facility] Work Phone: Comment on above: A courtesy copy of kirsten his report has been sent [phone].PATIENT WAS FASTINGPERFORMED BY: SHERLY [employer]70 [facility] [id number] Cholesterol in LDL/Cholesterol in HDL mass ratio 0.9 {ratio_units} Normal 0.0-3.6 [facility] Work Phone: Comment on above: A courtesy copy of kirsten his report has been sent [phone].PATIENT WAS FASTINGPERFORMED BY: [facility]6370 [facility] [id number] Cholesterol in VLDL mass conc 11 mg/dL Normal 5-40 [facility] Work Phone: Comment on above: A courtesy copy of t his report has been sent [phone].PATIENT WAS FASTINGPERFORMED BY: [facility]6370 [facility] [id number] Cholesterol mass conc 175 mg/dL Normal 100-199 [facility] prehensive Internal Medicine Work Phone: Comment on above: A courtesy copy of t his report has been sent [phone].PATIENT WAS FASTINGPERFORMED BY: [facility]6370 [facility] [id number] Triglyceride mass conc 56 mg/dL Normal 0-149 [facility] Work Phone: Comment on above: A courtesy copy of t his report has been sent [phone].PATIENT WAS FASTINGPERFORMED BY: [facility]6370 [facility] [id number] Microalb/Creat Ratio, Rigoberto UrOrdered By: Clinical Operations Manager on 12-14-2008 Albumin DL <= 20 mg/L mass conc (U) 3.3 ug/mL Normal 0.0-17.0 [facility] Work Phone: Comment on above: A courtesy copy of t his report has been sent [phone].PATIENT WAS FASTINGPERFORMED BY: [facility]6370 [facility] [id number] Albumin/Creatinine DL <= 20 mg/L mass ratio (U) 3.1 {ug/mg_creat} Normal 0.0-30.0 [facility] Work Phone: Comment on above: A courtesy copy of t his report has been sent [phone].PATIENT WAS FASTINGPERFORMED BY: [id number] [id number] Creatinine mass conc (U) 107.0 mg/dL Normal 22.0-328.0 [facility] Work Phone: Comment on above: A courtesy copy of t his report has been sent [phone].PATIENT WAS FASTINGPERFORMED BY: [email or web address] [facility] [id number] Prostate-Specific Ag, SerumO rdered By: Clinical Operations Manager on 12-14-2008 Prostate specific Ag mass conc 0.3 ng/mL Normal 0.0-4.0 [facility] Work Phone: Comment on above: Donato ECLIA methodol ogy. .According to the [place] [employer], PSA should beundetectable after radical prostatectomy. A PSA of less than0.5 ng/mL (or undetectable) is not likely to be associated withdisease recurrence within five years of treatment.Values obtained with different assay methods or kits cannot be usedinterchangeably. Results cannot be interpreted as absolute evidenceof the presence or absence of malignant disease. A courtesy copy of t his report has been sent [phone].PATIENT WAS FASTINGPERFORMED BY: [email or web address] [facility] [id number] TSHOrdered By: System Manage r on 12-14-2008 Thyrotropin Qn 0.063 {uIU/mL} Abnormal 0.450-4.50 0 [facility] Work Phone: Comment on above: A courtesy copy of t his report has been sent [phone].PATIENT WAS FASTINGPERFORMED BY: [id number] [facility] [id number] BMPOrdered By: System Chug r on 01-16-2007 Anion gap 3 molar conc 6 mmol/L Normal 5-15 [facility] Work Phone: Anion gap molar conc 6 mmol/L Normal 5-15 [facility] re[facility] Work Phone: Calcium mass conc 9.7 mg/dL Normal 8.5-10.1 [facility] Work Phone: Chloride molar conc 103 mmol/L Normal 98-107 Compr e[facility] Work Phone: CO2 molar conc 30.7 mmol/L Abnormal 22.0-29.0 Comprehen s[facility] Work Phone: Creatinine mass conc 1.1 mg/dL Normal 0.8-1.3 [facility] Work Phone: Glucose mass conc 137 mg/dL Abnormal 70-110 [facility] Work Phone: Comment on above: Fasting Glucose resu lt greater than or equal to 126 mg/dL suggests DIABETES MELLITUS per A.D.A. criteria. Potassium molar conc 4.6 mmol/L Normal 3.5-5.1 [facility] Work Phone: Sodium molar conc 140 mmol/L Normal 136-145 [facility] Work Phone: Urea nitrogen mass conc 22 mg/dL Abnormal 7-18 [facility] Work Phone: Urea nitrogen/Creatinine mass ratio 20.0 {RATIO} Normal 10-20 [facility] Work Phone: Vital Signs Date Time Vital Sign Value Performing Clinician Facility 01-23-2023 09:55-0400 Body height 185.42 cm [facility]; [facility] Work Phone: 01-23-2023 09:55-0400 Body mass index (BMI) [Ratio] 23.75 kg/m2 [facility]; [facility] Work Phone: 01-23-2023 09:55-0400 Body surface area Derived from formula 2.06 m2 [facility]; [facility] Work Phone: 01-23-2023 09:55-0400 Body temperature 97.9 [degF] [facility]; [facility] Work Phone: Comment on above: Method: Thermal Scan 01-23-2023 09:55-0400 Body weight 81.65 kg [facility]; [facility] Work Phone: 01-23-2023 09:55-0400 Diastolic blood pressure 72 mm[Hg] Tiffani Mustafa [facility]; [facility] Work Phone: Comment on above: Patient Position: Sitting; Cuff Location : Left Arm; Cuff Size: Standard 01-23-2023 09:55-0400 Heart rate 74 /min Tiffani Mustafa [facility]; [facility] Work Phone: Comment on above: Pattern: Regular 01-23-2023 09:55-0400 Respiratory rate 16 /min Tiffani Mustafa [facility]; [facility] Work Phone: Comment on above: Pattern: Unlabored 01-23-2023 09:55-0400 Systolic blood pressure 140 mm[Hg] Tiffani Mustafa [facility]; [facility] Work Phone: Comment on above: Patient Position: Sitting; Cuff Location : Left Arm; Cuff Size: Standard 10-17-2022 08:38-0400 Body height 185.42 cm Tiffani Mustafa [facility]; [facility] Work Phone: 10-17-2022 08:38-0400 Body mass index (BMI) [Ratio] 23.88 kg/m2 Tiffani Mustafa [facility]; [facility] Work Phone: 10-17-2022 08:38-0400 Body surface area Derived from formula 2.06 m2 Tiffani Mustafa [facility]; [facility] Work Phone: 10-17-2022 08:38-0400 Body temperature 98.6 [degF] Tiffani Mustafa [facility]; [facility] Work Phone: Comment on above: Method: Thermal Scan 10-17-2022 08:38-0400 Body weight 82.1 kg Tiffani Mustafa [facility]; [facility] Work Phone: 10-17-2022 08:38-0400 Diastolic blood pressure 70 mm[Hg] Tiffani Mustafa [facility]; [facility] Work Phone: Comment on above: Patient Position: Sitting; Cuff Location : Left Arm; Cuff Size: Standard 10-17-2022 08:38-0400 Heart rate 100 /min Tiffani Mustafa [facility]; [facility] Work Phone: Comment on above: Pattern: Regular 10-17-2022 08:38-0400 Respiratory rate 16 /min Tiffani Mustafa [facility]; [facility] Work Phone: Comment on above: Pattern: Unlabored 10-17-2022 08:38-0400 SaO2% (BldA) [Mass fraction] 97 % Tiffani Mustafa [facility]; [facility] Work Phone: Comment on above: Room air 10-17-2022 08:38-0400 Systolic blood pressure 118 mm[Hg] Tiffani Mustafa [facility]; [facility] Work Phone: Comment on above: Patient Position: Sitting; Cuff Location : Left Arm; Cuff Size: Standard 09-12-2022 10:01-0400 Body height 185.42 cm Tiffani Mustafa [facility]; [facility] Work Phone: 09-12-2022 10:01-0400 Body mass index (BMI) [Ratio] 23.35 kg/m2 Tiffani Mustafa [facility]; [facility] Work Phone: 09-12-2022 10:01-0400 Body surface area Derived from formula 2.04 m2 Tiffani Mustafa [facility]; [facility] Work Phone: 09-12-2022 10:01-0400 Body temperature 98.5 [degF] Tiffani Mustafa [facility]; [facility] Work Phone: Comment on above: Method: Thermal Scan 09-12-2022 10:01-0400 Body weight 80.29 kg [facility]; [facility] Work Phone: 09-12-2022 10:01-0400 Diastolic blood pressure 70 mm[Hg] Tiffani Manalexyk STATISTICAL MACHINE SERVICER [facility]; [facility] Work Phone: Comment on above: Patient Position: Sitting; Cuff Location : Left Arm; Cuff Size: Standard 09-12-2022 10:01-0400 Heart rate 89 /min Tiffani Manchak [facility]; [facility] Work Phone: Comment on above: Pattern: Regular 09-12-2022 10:01-0400 Respiratory rate 16 /min Tiffani Manalexyk [facility]; [facility] Work Phone: Comment on above: Pattern: Unlabored 09-12-2022 10:01-0400 Systolic blood pressure 120 mm[Hg] Tiffani Manalexyk [facility]; [facility] Work Phone: Comment on above: Patient Position: Sitting; Cuff Location : Left Arm; Cuff Size: Standard 08-29-2022 07:45-0400 Body temperature 97.7 [degF] Dr. Mills Fast Work Phone: [facility] 08-29-2022 07:45-0400 Diastolic blood pressure 80 mm[Hg] Dr. Mills Fast Work Phone: [facility] 08-29-2022 07:45-0400 Heart rate 66 /min Dr. Mills Fast Work Phone: [facility] 08-29-2022 07:45-0400 Respiratory rate 12 /min Dr. Mills Fast Work Phone: [facility] 08-29-2022 07:45-0400 SaO2% (BldA) [Mass fraction] 99 % Dr. Mills Fast Work Phone: [facility] 08-29-2022 07:45-0400 Systolic blood pressure 130 mm[Hg] Dr. Mills Fast Work Phone: [facility] 08-29-2022 06:36-0400 Body height 185.[address] Mills Fast Work Phone: [facility] 08-29-2022 06:36-0400 Body mass index (BMI) [Ratio] 22.6 kg/m2 Dr. Estuardo Jimenez Work Phone: [facility] 08-29-2022 06:36-0400 Body weight [address] Estuardo Jimenez Work Phone: [facility] 08-09-2022 08:36-0500 Body weight 81.19 kg Nadya Waddlel MD Work Phone: [facility] 08-09-2022 08:36-0500 Diastolic blood pressure 86 mm[Hg] Nadya Waddell MD Work Phone: [facility] 08-09-2022 08:36-0500 Heart rate 89 /min Nadya Waddell MD Work Phone: [facility] 08-09-2022 08:36-0500 Systolic blood pressure 137 mm[Hg] Nadya Waddell MD Work Phone: [facility] 07-11-2022 08:43-0500 Body mass index (BMI) [Ratio] 23.3 kg/m2 Dr. Estuardo Jimenez Work Phone: [facility] 07-11-2022 08:43-0500 Body weight 80.[address] Estuardo Jimenez Work Phone: [facility] 07-09-2022 09:53-0500 Body height 185.42 cm Estuardo Turcios Fast DO Work Phone: [facility]; [facility] Work Phone: 07-09-2022 09:53-0500 Body mass index (BMI) [Ratio] 23.35 kg/m2 Estuardo A Fast DO Work Phone: [facility]; [facility] Work Phone: 07-09-2022 09:53-0500 Body surface area Derived from formula 2.04 m2 Estuardo A Fast DO Work Phone: [facility]; [facility] Work Phone: 07-09-2022 09:53-0500 Body temperature 98.1 [degF] Estuardo A Fast DO Work Phone: [facility]; [facility] Work Phone: Comment on above: Method: Thermal Scan 07-09-2022 09:53-0500 Body weight 80.29 kg Estuardo A Fast DO Work Phone: [facility]; [facility] Work Phone: 07-09-2022 09:53-0500 Diastolic blood pressure 70 mm[Hg] Estuardo A Fast DO Work Phone: [facility]; [facility] Work Phone: Comment on above: Patient Position: Sitting; Cuff Location : Left Arm; Cuff Size: Standard 07-09-2022 09:53-0500 Heart rate 84 /min Estuardo A Fast DO Work Phone: [facility]; [facility] Work Phone: Comment on above: Pattern: Regular 07-09-2022 09:53-0500 Respiratory rate 16 /min Estuardo A Fast DO Work Phone: [facility]; [facility] Work Phone: Comment on above: Pattern: Unlabored 07-09-2022 09:53-0500 Systolic blood pressure 116 mm[Hg] Estuardo A Fast DO Work Phone: [facility]; [facility] Work Phone: Comment on above: Patient Position: Sitting; Cuff Location : Left Arm; Cuff Size: Standard 04-16-2022 11:40-0400 Body temperature 96.9 [degF] Jonathan George [facility] Comprehensiv e [facility]; [facility] Work Phone: 04-16-2022 11:40-0400 Body weight 79.38 kg Jonathan George [facility]; [facility] Work Phone: 04-16-2022 11:40-0400 Diastolic blood pressure 80 mm[Hg] Jonathan George [facility]; [facility] Work Phone: Comment on above: Patient Position: Sitting; Cuff Location : Left Arm; Cuff Size: Standard 04-16-2022 11:40-0400 Heart rate 87 /min Jonathan George [facility]; [facility] Work Phone: Comment on above: Pattern: Regular 04-16-2022 11:40-0400 Respiratory rate 16 /min Jonathan George [facility] Com[facility]; [facility] Work Phone: Comment on above: Pattern: Unlabored 04-16-2022 11:40-0400 SaO2% (BldA) [Mass fraction] 97 % Jonathan George [facility]; [facility] Work Phone: Comment on above: Room air 04-16-2022 11:40-0400 Systolic blood pressure 130 mm[Hg] Jonathan George [facility]; [facility] Work Phone: Comment on above: Patient Position: Sitting; Cuff Location : Left Arm; Cuff Size: Standard 03-24-2022 13:01-0400 Diastolic blood pressure 74 mm[Hg] Dr. Estuardo Jimenez Work Phone: [facility] Work Phone: 03-24-2022 13:01-0400 Heart rate 81 /min Dr. Estuardo Jimenez Work Phone: [facility] Work Phone: 03-24-2022 13:01-0400 Respiratory rate 18 /min Dr. Estuardo Jimenez Work Phone: [facility] Work Phone: 03-24-2022 13:01-0400 SaO2% (BldA) [Mass fraction] 97 % Dr. Estuardo Jimenez Work Phone: [facility] Work Phone: 03-24-2022 13:01-0400 Systolic blood pressure 138 mm[Hg] Dr. Estuardo Jimenez Work Phone: [facility] Work Phone: 03-24-2022 08:32-0400 Body height 185.[address] Mills Fast Work Phone: [facility] Work Phone: 03-24-2022 08:32-0400 Body mass index (BMI) [Ratio] 23.2 kg/m2 Dr. Estuardo Jimenez Work Phone: [facility] Work Phone: 03-24-2022 08:32-0400 Body temperature 97.3 [degF] Dr. Estuardo Jimenez Work Phone: [facility] Work Phone: 03-24-2022 08:32-0400 Body weight [address] Estuardo Jimenez Work Phone: [facility] Work Phone: 01-07-2022 14:41-0400 Body height 185.[address] Estuardo Jimenez Work Phone: [facility] Work Phone: 01-07-2022 14:41-0400 Body mass index (BMI) [Ratio] 24 kg/m2 Dr. Estuardo Jimenez Work Phone: [facility] Work Phone: 01-07-2022 14:41-0400 Body temperature 97.9 [degF] Dr. Estuardo Jimenez Work Phone: [facility] Work Phone: 01-07-2022 14:41-0400 Body weight 82.[address] Estuardo Jimenez Work Phone: [facility] Work Phone: 01-07-2022 14:41-0400 Diastolic blood pressure 78 mm[Hg] Dr. Estuardo Jimenez Work Phone: [facility] Work Phone: 01-07-2022 14:41-0400 Heart rate 80 /min Dr. Estuardo Jimenez Work Phone: [facility] Work Phone: 01-07-2022 14:41-0400 Respiratory rate 15 /min Dr. Mills Fast Work Phone: [facility] Work Phone: 01-07-2022 14:41-0400 SaO2% (BldA) [Mass fraction] 98 % Dr. Mills Fast Work Phone: [facility] Work Phone: 01-07-2022 14:41-0400 Systolic blood pressure 138 mm[Hg] Dr. Estuardo Jimenez Work Phone: [facility] Work Phone: 05-31-2021 11:45-0500 Body temperature 97.1 [degF] Tiffani Mustafa [facility]; [facility] Work Phone: Comment on above: Method: Thermal Scan 05-31-2021 11:45-0500 Body weight 83.46 kg Tiffani Mustafa [facility]; [facility] Work Phone: 05-31-2021 11:45-0500 Diastolic blood pressure 78 mm[Hg] Tiffani Mustafa [facility]; [facility] Work Phone: Comment on above: Patient Position: Sitting; Cuff Location : Left Arm; Cuff Size: Standard 05-31-2021 11:45-0500 Heart rate 74 /min Tiffani Mustafa [facility]; [facility] Work Phone: Comment on above: Pattern: Regular 05-31-2021 11:45-0500 Systolic blood pressure 148 mm[Hg] Tiffani Mustafa [facility]; [facility] Work Phone: Comment on above: Patient Position: Sitting; Cuff Location : Left Arm; Cuff Size: Standard 11-12-2019 21:53-0400 Body Temperature 98.8 [degF] Estuardo Jimenez DO Work Phone: [facility] Work Phone: Comment on above: Method: Oral 11-12-2019 21:53-0400 Body weight 83.46 kg Estuardo A Fast DO Work Phone: [facility] Work Phone: 11-12-2019 21:53-0400 BP Diastolic 87 mm[Hg] Estuardo A Fast DO Work Phone: [facility] Work Phone: Comment on above: Patient Position: Sitting 11-12-2019 21:53-0400 BP Systolic 149 mm[Hg] Estuardo A Fast DO Work Phone: [facility] Work Phone: Comment on above: Patient Position: Sitting 11-12-2019 21:53-0400 Pulse (Heart Rate) 88 /min Estuardo A Fast DO Work Phone: [facility] Work Phone: Comment on above: Pattern: Regular 11-12-2019 21:53-0400 Respiratory Rate 18 /min Estuardo A Fast DO Work Phone: [facility] Work Phone: 11-25-2015 08:04-0400 BMI (Body Mass Index) 24.28 kg/m2 NICOLÁS Flores LPN [facility] Work Phone: 11-25-2015 08:04-0400 Body Temperature 97.6 [degF] NICOLÁS Flores LPN [facility] Work Phone: Comment on above: Method: Temporal 11-25-2015 08:04-0400 Body weight 83.46 kg NICOLÁS Flores LPN [facility] Work Phone: 11-25-2015 08:04-0400 BP Diastolic 100 mm[Hg] NICOLÁS Flores LPN [facility] Work Phone: Comment on above: Patient Position: Sitting; Cuff Location : Left Arm; Cuff Size: Standard 11-25-2015 08:04-0400 BP Systolic 160 mm[Hg] NICOLÁS Flores LPN [facility] Work Phone: Comment on above: Patient Position: Sitting; Cuff Location : Left Arm; Cuff Size: Standard 11-25-2015 08:04-0400 BSA (Body Surface Area) 2.08 m2 NICOLÁS Flores ALEJANDRA [facility] Work Phone: 11-25-2015 08:04-0400 Height 185.42 cm NICOLÁS Flores LPN [facility] Work Phone: 11-25-2015 08:04-0400 Pulse (Heart Rate) 100 /min NICOLÁS Flores LPN [facility] Work Phone: Comment on above: Pattern: Regular 11-25-2015 08:04-0400 Pulse Oximetry 98 % Dolly Madisonon [facility] Work Phone: Comment on above: Room air 11-25-2015 08:04-0400 Respiratory Rate 18 /min NICOLÁS Flores LPN [facility] Work Phone: Comment on above: Pattern: Unlabored 11-25-2015 08:04-0400 SaO2% (BldA) [Mass fraction] 98 % NICOLÁS Flores LPN [facility] Work Phone: Comment on above: Room air 11-25-2015 08:04-0400 Weight 83.46 kg Dolly Madisonon [facility] Work Phone: 03-25-2015 13:05-0400 Body Temperature 98.1 [degF] Rosalind Byrnes RN [facility] Work Phone: Comment on above: Method: Temporal 03-25-2015 13:05-0400 BP Diastolic 76 mm[Hg] Rosalind Byrnes RN [facility] Work Phone: Comment on above: Patient Position: Sitting; Cuff Location : Left Arm; Cuff Size: Standard 03-25-2015 13:05-0400 BP Systolic 124 mm[Hg] Rosalind Byrnes RN [facility] Work Phone: Comment on above: Patient Position: Sitting; Cuff Location : Left Arm; Cuff Size: Standard 03-25-2015 13:05-0400 Pulse (Heart Rate) 74 /min Rosalind Byrnes RN [facility] Work Phone: Comment on above: Pattern: Regular 03-25-2015 13:05-0400 Respiratory Rate 16 /min Rosalind Byrnes RN [facility] Work Phone: Comment on above: Pattern: Unlabored 02-12-2013 09:33-0400 Body Temperature 97.4 [degF] Rosalind Byrnes RN [facility] Work Phone: Comment on above: Method: Temporal 02-12-2013 09:33-0400 BP Diastolic 72 mm[Hg] Rosalind Byrnes RN [facility] Work Phone: Comment on above: Patient Position: Sitting; Cuff Location : Left Arm; Cuff Size: Standard 02-12-2013 09:33-0400 BP Systolic 122 mm[Hg] Rosalind Byrnes RN [facility] Work Phone: Comment on above: Patient Position: Sitting; Cuff Location : Left Arm; Cuff Size: Standard 02-12-2013 09:33-0400 Pulse (Heart Rate) 86 /min Rosalind Byrnes RN [facility] Work Phone: Comment on above: Pattern: Regular 02-12-2013 09:33-0400 Pulse Oximetry 98 % Dolly Causey [facility] Work Phone: Comment on above: Room air 02-12-2013 09:33-0400 Respiratory Rate 16 /min Rosalind Byrnes RN [facility] Work Phone: Comment on above: Pattern: Unlabored 02-12-2013 09:33-0400 SaO2% (BldA) [Mass fraction] 98 % Rosalind Byrnes RN [facility] Work Phone: Comment on above: Room air Encounters Encounter Date Encounter Type Care Provider Facility Start: 03-18-2025 ambulatory Estuardo Jimenez Facility:[facility] Start: 03-18-2025 Non-patient / Non-visit Dr. Josefina REYEZ [facility] Start: 03-18-[address] Julio Padron MD -Cardiovascular Services Work Phone: Start: 03-18-2025 End: 03-18-2025 ambulatory Julio Padron Facility:[facility] Start: 03-15-2025 End: 03-15-[address] Estuardo Jimenez DO Work Phone: -Cat Scan [facility] Start: 03-15-2025 End: 03-15-[address] Estuardo Jimenez DO -Cat Scan [facility] Work Phone: Start: 03-15-2025 End: 03-15-[address] Estuardo Jimenez DO Work Phone: -Laboratory Specimen Start: 03-15-2025 End: 03-15-[address] Julio Padron MD -Laboratory Specimen Work Phone: Start: 03-15-2025 End: 03-15-2025 ambulatory Estuardo Jimenez Facility:[facility] Start: 06-15-2024 End: 06-15-2024 ambulatory Melva Omer Facility:[facility] Start: 05-21-2024 End: 05-21-2024 ambulatory [facility] Facility:[facility] Start: 07-25-2023 End: 07-25-2023 ambulatory [facility] Work Phone: Start: 07-25-2023 End: 07-25-2023 Discharged Recurring [facility]-Physical Therapy Work Phone: Start: 06-03-2023 End: 06-03-2023 ambulatory [facility] Work Phone: Start: 06-03-2023 End: 06-03-2023 Patient encounter procedure [facility]-Laboratory, Specimen Work Phone: Start: 03-15-2023 End: 03-15-2023 Annotation/Addendum Estuardo Fast DO Work Phone: [facility] Start: 01-23-2023 End: 01-23-2023 Office outpatient visit 15 minutes Estuardo Fast DO Work Phone: [facility] Start: 01-23-2023 Review Estuardo Fast DO Work Phone: [facility] Start: 01-09-2023 Review Estuardo Fast DO Work Phone: [facility] Start: 10-17-2022 ambulatory Estuardo Turcios Fast DO [facility] Start: 10-17-2022 Review Estuardo José DO Work Phone: [facility] Start: 10-17-2022 End: 10-19-2022 Office outpatient visit 25 minutes Esutardokarolina Jimenez DO Work Phone: [facility] Start: 09-28-2022 End: 09-28-[address] Estuardo Jimenez Work Phone: [facility] Work Phone: Start: 09-28-2022 End: 09-28-[address] Estuardo Jimenez Work Phone: [facility]-Laboratory, Specimen Start: 09-28-2022 End: 09-28-[address] Estuardo Jimenez Work Phone: [facility] Start: 09-28-2022 End: 09-30-2022 Nursing evaluation of patient and report Estuardo Jimenez DO Work Phone: [facility] Start: 09-27-2022 End: 09-27-[address] Estuardo Jimenez Work Phone: [facility] Work Phone: Start: 09-27-2022 End: 09-27-[address] Estuardo Jimenez Work Phone: [facility]-Laboratory, Specimen Start: 09-26-2022 End: 09-30-2022 Phone Encounter Estuardo José DO Work Phone: [facility] Start: 09-24-2022 End: 09-24-2022 Phone Encounter Estuardo Fast DO Work Phone: [facility] Start: 09-17-2022 End: 09-17-[address] Estuardo Jimenez Work Phone: [facility] Work Phone: Start: 09-17-2022 End: 09-17-[address] Estuardo Jimenez Work Phone: [facility]-Laboratory, Specimen Start: 09-17-2022 Review Estuardo Fast DO Work Phone: [facility] Start: 09-17-2022 End: 09-17-2022 Phone Encounter Estuardo Fast DO Work Phone: [facility] Start: 09-14-2022 Review Estuardo Fast DO Work Phone: [facility] Start: 09-12-2022 End: 09-13-2022 Office consultation new/estab patient 60 min Estuardo Fast DO Work Phone: [facility] Start: 09-12-2022 End: 09-13-2022 Preoperative state Estuardo Fast DO Work Phone: [facility] Start: 09-12-2022 Review Estuardo Fast DO Work Phone: [facility] Start: 08-29-2022 End: 10-30-2022 Phone Encounter Estuardo Fast DO Work Phone: [facility] Start: 08-29-2022 Review Estuardo Fast DO Work Phone: [facility] Start: 08-29-2022 Non-patient / Non-visit Dr. Huff Fast Work Phone: [facility] Start: 08-29-2022 End: 08-29-2022 Admission to same day surgery center Dr. Estuardo Jimenez Work Phone: [facility]-Endoscopy Start: 08-29-2022 End: 08-29-[address] Estuardo Jimenez Work Phone: [facility] Work Phone: Start: 08-22-2022 End: 08-22-2022 Phone Encounter Estuardo Fast DO Work Phone: [facility] Start: 08-13-2022 Review Estuardo Fast DO Work Phone: [facility] Start: 08-10-2022 End: 08-10-2022 Phone Encounter Estuardo Fast DO Work Phone: [facility] Start: 08-09-2022 End: 08-09-2022 ambulatory NADYA WADDELL [facility] Start: 08-09-2022 End: 08-09-2022 Office outpatient new 60 minutes Nadya Waddell MD Work Phone: [facility] Comment on above: Spinal stenosis of l umbar region with neurogenic claudication (Primary Dx); Sensorimotor neuropathy; Other fatigue Start: 08-06-2022 End: 08-06-2022 Annotation/Addendum Estuardo Fast DO Work Phone: [facility] Start: 08-02-2022 End: 08-02-2022 Annotation/Addendum Estuardo Fast DO Work Phone: [facility] Start: 07-18-2022 End: 08-01-2022 Lab Order Estuardo Fast DO Work Phone: [facility] Start: 07-18-2022 Review Estuardo Fast DO Work Phone: [facility] Start: 07-11-2022 Non-patient / Non-visit Dr. Huff Fast Work Phone: [facility] Start: 07-09-2022 Review Estuardo Fast DO Work Phone: [facility] Start: 05-21-2022 End: 08-28-2022 Phone Encounter Estuardo Fast DO Work Phone: [facility] Start: 05-21-2022 Review Estuardo Fast DO Work Phone: [facility] Start: 05-17-2022 End: 05-17-2022 Prescription Refill Estuardo Fast DO Work Phone: [facility] Start: 05-15-2022 End: 05-15-2022 Office outpatient visit 5 minutes Estuardo Fast DO Work Phone: [facility] Start: 04-26-2022 End: 04-26-2022 Phone Encounter Estuardo Fast DO Work Phone: [facility] Start: 04-16-2022 Review Estuardo Fast DO Work Phone: [facility] Start: 04-16-2022 End: 04-22-2022 Office outpatient visit 25 minutes Estuardo Fast DO Work Phone: [facility] Start: 04-09-2022 End: 04-09-2022 Phone Encounter Estuardo Fast DO Work Phone: [facility] Start: 04-04-2022 End: 04-04-2022 Phone Encounter Estuardo Fast DO Work Phone: [facility] Start: 03-29-2022 Review Estuardo Fast DO Work Phone: [facility] Start: 03-29-2022 End: 03-29-2022 Annotation/Addendum Estuardo Fast DO Work Phone: [facility] Start: 03-26-2022 Review Estuardo Fast DO Work Phone: [facility] Start: 03-26-2022 End: 03-26-2022 Lab Order Estuardo Fast DO Work Phone: [facility] Start: 03-24-2022 End: 03-24-2022 Emergency department patient visit Dr. Estuardo Jimenez Work Phone: [facility]-Emergency Department Start: 03-14-2022 End: 03-14-2022 Phone Encounter Estuardo Fast DO Work Phone: [facility] Start: 03-13-2022 End: 03-13-2022 Phone Encounter Estuardo Fast DO Work Phone: [facility] Start: 03-08-2022 End: 03-08-2022 Office outpatient visit 5 minutes Estuardo Fast DO Work Phone: [facility] Start: 02-21-2022 End: 02-21-[address] Estuardo Jimenez Work Phone: [facility] Work Phone: Start: 02-21-2022 End: 02-21-[address] Estuardo Jimenez Work Phone: [facility]-Pulmonary Services/Neurology Start: 02-16-2022 End: 02-16-[address] Estuardo Jimenez Work Phone: [facility] Work Phone: Start: 02-16-2022 End: 02-16-[address] Estuardo Jimenez Work Phone: [facility]-Laboratory, Specimen Start: 01-19-2022 End: 02-16-2022 Phone Encounter Estuardo Fast DO Work Phone: [facility] Start: 01-19-2022 Review Estuardo Fast DO Work Phone: [facility] Start: 01-19-2022 End: 01-19-2022 Office outpatient visit 5 minutes Estuardo Fast DO Work Phone: [facility] Start: 01-15-2022 End: 01-15-[address] Estuardo Jimenez Work Phone: [facility] Start: 01-07-2022 End: 01-07-2022 Emergency department patient visit Dr. Estuardo Jimenez Work Phone: [facility]-Emergency Department Start: 12-25-2021 End: 12-25-2021 Office outpatient visit 5 minutes Estuardo Fast DO Work Phone: [facility] Start: 12-12-2021 End: 12-12-2021 Phone Encounter Estuardo Fast DO Work Phone: [facility] Start: 12-09-2021 Review Estuardo Fast DO Work Phone: [facility] Start: 12-08-2021 End: 12-08-[address] Estuardo Jimenez Work Phone: [facility] Start: 12-08-2021 End: 12-11-2021 Phone Encounter Estuardo Fast DO Work Phone: [facility] Start: 11-17-2021 End: 11-17-2021 Office outpatient visit 5 minutes Estuardo Fast DO Work Phone: [facility] Start: 10-14-2021 End: 10-15-2021 Office outpatient visit 5 minutes Estuardo Fast DO Work Phone: [facility] Start: 10-02-2021 End: 10-02-2021 Phone Encounter Estuardo Fast DO Work Phone: [facility] Start: 10-02-2021 End: 10-02-2021 Office outpatient visit 5 minutes Estuardo Fast DO Work Phone: [facility] Start: 09-29-2021 End: 10-12-2021 Office outpatient visit 25 minutes Estuardo Fast DO Work Phone: [facility] Start: 09-26-2021 End: 09-26-[address] Estuardo Jimenez Work Phone: [facility] Start: 09-06-2021 End: 09-06-2021 Office outpatient visit 5 minutes Estuardo Fast DO Work Phone: [facility] Start: 09-06-2021 End: 09-06-[address] Estuardo Jimenez Work Phone: [facility]-Physical Therapy Start: 09-06-[address] Estuardo Jimenez Work Phone: [facility]-Physical Therapy Start: 08-15-2021 End: 08-15-2021 Periodic preventive med est patient 18-39 yrs Estuardo Fast DO Work Phone: [facility] Start: 08-02-2021 Review Estuardo Fast DO Work Phone: [facility] Start: 07-26-2021 End: 07-26-[address] Estuardo Jimenez Work Phone: [facility] Start: 07-26-2021 End: 07-26-2021 Phone Encounter Estuardo Fast DO Work Phone: [facility] Start: 07-24-2021 End: 07-24-[address] Estuardo Jimenez Work Phone: [facility] Start: 07-24-2021 End: 08-01-2021 Phone Encounter Estuardo Fast DO Work Phone: [facility] Start: 07-24-2021 Review Estuardo Fast DO Work Phone: [facility] Start: 07-12-2021 End: 07-12-[address] Mills Fast Work Phone: [facility]-Pulmonary Services/Neurology Start: 06-20-2021 End: 07-18-2021 Phone Encounter Estuardo Fast DO Work Phone: [facility] Start: 06-20-2021 Review Estuardo Fast DO Work Phone: [facility] Start: 06-13-2021 End: 06-14-2021 Office outpatient visit 5 minutes Estuardo Fast DO Work Phone: [facility] Start: 06-07-2021 End: 06-08-2021 Phone Encounter Estuardo Fast DO Work Phone: [facility] Start: 06-04-2021 End: 06-04-2021 Phone Encounter Estuardo Fast DO Work Phone: [facility] Start: 05-31-2021 End: 05-31-2021 Phone Encounter Estuardo Fast DO Work Phone: [facility] Start: 05-31-2021 End: 06-01-2021 Office outpatient visit 25 minutes Estuardo Fast DO Work Phone: [facility] Start: 05-20-2021 End: 06-11-2021 Office outpatient visit 10 minutes Estuardo Fast DO Work Phone: [facility] Start: 05-05-2021 End: 05-05-2021 Phone Encounter Estuardo Fast DO Work Phone: [facility] Start: 05-05-2021 End: 05-05-2021 Office outpatient visit 5 minutes Estuardo Fast DO Work Phone: [facility] Start: 04-21-2021 End: 04-26-2021 Office outpatient visit 5 minutes Estuardo Fast DO Work Phone: [facility] Start: 01-22-2021 End: 01-22-2021 Office outpatient visit 5 minutes Estuardo Fast DO Work Phone: [facility] Start: 12-22-2020 End: 12-26-2020 Periodic preventive med est patient 18-39 yrs Estuardo Fast DO Work Phone: [facility] Start: 11-24-2020 End: 11-24-2020 Phone Encounter Estuardo Fast DO Work Phone: [facility] Start: 11-22-2020 End: 11-28-2020 Office outpatient visit 25 minutes Estuardo Fast DO Work Phone: [facility] Start: 11-22-2020 Review Estuardo Fast DO Work Phone: [facility] Start: 08-24-2020 End: 08-24-2020 Phone Encounter Estuardo Fast [facility] Start: 08-05-2020 End: 08-05-2020 Periodic preventive med est patient 18-39 yrs Estuardo Fast [facility] Start: 06-29-2020 End: 07-11-2020 Phone Encounter Estuardo Fast [facility] Start: 06-29-2020 Review Estuardo Fast [facility] Start: 12-22-2019 End: 12-22-2019 Phone Encounter Estuardo Fast [facility] Start: 11-16-2019 End: 12-31-2019 Phone Encounter Estuardo Fast [facility] Start: 11-16-2019 Review Estuardo Fast [facility] Start: 11-12-2019 End: 11-13-2019 Office outpatient visit 15 minutes Estuardo Fast [facility] Start: 10-06-2019 End: 10-06-2019 Phone Encounter Estuardo Fast [facility] Start: 09-03-2019 End: 09-03-2019 Office outpatient visit 5 minutes Estuardo Fast [facility] Start: 09-02-2019 End: 09-04-2019 Phone Encounter Estuardo Fast [facility] Start: 08-31-2019 End: 08-31-2019 Office outpatient visit 25 minutes Estuardo Fast [facility] Start: 08-18-2019 End: 08-18-2019 Office outpatient visit 40 minutes Estuardo Fast [facility] Start: 08-07-2019 End: 08-07-2019 Phone Encounter Estuardo Cummings [facility] Start: 08-04-2019 End: 08-04-2019 Office outpatient visit 10 minutes Estuardo Cummings [facility] Start: 01-16-2019 End: 01-16-2019 Phone Encounter Dolly Cummings [facility] Start: 01-14-2019 End: 01-14-2019 Office outpatient visit 15 minutes Dolly Cummings [facility] Start: 01-12-2019 End: 01-12-2019 Lab Order Dolly Cummings [facility] Start: 12-23-2018 End: 12-23-2018 Office outpatient visit 15 minutes Dolly Causey [facility] Start: 11-20-2018 End: 11-20-2018 Office outpatient visit 10 minutes Dolly Cummings [facility] Start: 09-16-2018 Review Dolly Kim [facility] Start: 07-19-2018 End: 07-22-2018 Office outpatient visit 25 minutes Dolly Cummings [facility] Start: 04-30-2018 End: 04-30-2018 Office outpatient visit 15 minutes Dolly Causey [facility] Start: 03-18-2018 End: 03-18-2018 Phone Encounter Dolly Cummings [facility] Start: 03-12-2018 End: 03-12-2018 Phone Encounter Dolly Cummings [facility] Start: 01-05-2018 End: 01-05-2018 Office outpatient visit 25 minutes Dolly Cummings [facility] Start: 11-25-2017 End: 11-25-2017 Periodic preventive med est patient 18-39 yrs Dolly Cummings [facility] Start: 10-22-2017 End: 10-22-2017 Phone Encounter Dolly Cummings [facility] Start: 10-06-2017 End: 10-07-2017 Office outpatient visit 40 minutes Dolly Cummings [facility] Start: 09-16-2017 End: 09-16-2017 Office outpatient visit 15 minutes Dolly Cummings [facility] Start: 09-05-2017 End: 09-05-2017 Phone Encounter Dolly Cummings [facility] Start: 05-28-2017 End: 05-28-2017 Office outpatient visit 40 minutes Dolly Cummings [facility] Start: 04-19-2017 End: 04-19-2017 Office outpatient visit 25 minutes Dolly Madisonon [facility] Start: 03-04-2017 End: 03-04-2017 Office outpatient visit 15 minutes Dolly Marium [facility] Start: 11-19-2016 End: 11-19-2016 Office outpatient visit 10 minutes Dolly Marium [facility] Start: 05-06-2016 End: 05-06-2016 Office outpatient new 10 minutes Dolly Marium [facility] Start: 04-23-2016 End: 04-23-2016 Phone Encounter Dolly Marium [facility] Start: 04-01-2016 End: 04-01-2016 Office outpatient visit 10 minutes Dolly Marium [facility] Start: 11-29-2015 End: 11-29-2015 Phone Encounter Dolly Marium [facility] Start: 11-28-2015 End: 11-28-2015 Office outpatient visit 5 minutes Dollyvickie Madisonon [facility] Start: 11-25-2015 End: 11-25-2015 Phone Encounter Dolly Marium [facility] Start: 11-25-2015 End: 11-28-2015 Office outpatient visit 25 minutes Dolly Marium [facility] Start: 09-06-2015 End: 09-06-2015 Office outpatient visit 15 minutes Dolly Madisonon [facility] Start: 06-20-2015 End: 06-20-2015 Periodic preventive med est patient 65yrs& older Dolly Causey [facility] Start: 05-23-2015 End: 05-23-2015 Periodic preventive med est patient 18-39 yrs Dolly Marium [facility] Start: 03-25-2015 End: 03-25-2015 Office outpatient visit 40 minutes Dolly Causey [facility] Start: 03-24-2015 End: 03-25-2015 Office outpatient visit 25 minutes Dolly Marium [facility] Start: 03-21-2015 End: 03-21-2015 Periodic preventive med est patient 18-39 yrs Dollyvickie Madisonon [facility] Start: 01-25-2015 End: 01-25-2015 Patient encounter status Estuardo Jimenez DO Work Phone: [facility] Start: 01-25-2015 End: 01-25-2015 Periodic preventive med est patient 40-64yrs Dolly Causey [facility] Start: 08-02-2014 End: 08-02-2014 Recovered Encounter Dolly Marium [facility] Start: 01-31-2014 End: 01-31-2014 Office outpatient visit 15 minutes Dolly Causey [facility] Start: 01-31-2014 End: 01-31-2014 Office outpatient visit 25 minutes Dolly Causey [facility] Start: 04-02-2013 End: 04-02-2013 Phone Encounter Dolly Causey [facility] Start: 03-24-2013 End: 03-24-2013 Phone Encounter Dolly Causey [facility] Start: 03-06-2013 End: 03-06-2013 Phone Encounter Dolly Causey [facility] Start: 03-05-2013 End: 03-05-2013 Annotation/Addendum Dolly Causey [facility] Start: 02-19-2013 End: 02-23-2013 Patient encounter Dolly Causey [facility] Start: 02-19-2013 End: 02-23-2013 Patient encounter status Estuardo Fast DO Work Phone: [facility] Start: 02-12-2013 End: 02-13-2013 Phone Encounter Dolly Causey [facility] Start: 02-12-2013 End: 02-12-2013 Phone Encounter Dolly Causey [facility] Start: 02-03-2013 End: 02-03-2013 Phone Encounter Dolly Causey [facility] Start: 11-18-2012 End: 11-18-2012 Patient encounter Dolly Causey [facility] Start: 10-30-2012 End: 10-30-2012 Patient encounter Dolly Causey [facility] Start: 06-17-2012 End: 06-17-2012 Phone Encounter oDlly Causey [facility] Start: 06-16-2012 End: 06-16-2012 Annotation/Addendum Dolly Causey [facility] Start: 03-06-2012 End: 03-06-2012 Phone Encounter Dolly Causey [facility] Start: 11-05-2011 End: 11-05-2011 Phone Encounter Dolly Causey [facility] Start: 06-07-2011 End: 06-07-2011 Phone Encounter Dolly Causey [facility] Start: 10-02-2010 End: 10-02-2010 Phone Encounter Dolly Causey [facility] Start: 06-15-2009 End: 06-15-2009 Patient encounter Dolly Causey [facility] Start: 05-24-2009 End: 05-24-2009 Patient encounter Dolly Causey [facility] Start: 11-19-2008 End: 11-19-2008 Phone Encounter Dolly Causey [facility] Start: 08-01-2007 End: 08-01-2007 Patient encounter Dolly Causey [facility] Start: 07-08-2006 End: 07-08-2006 Historical Summary oDlly Causey [facility] End: 03-22-2015 Physical examination Clinical Operations Manager [facility] Work Phone: Comment on above: colonscopy 2012 Preoperative state Estuardo Turcios Fast DO Work Phone: [facility]; [facility] Work Phone: End: 10-17-2022 Preoperative state Estuardo Turcios Fast DO Work Phone: [facility]; [facility] Work Phone: Procedures Date Procedure Procedure Detail Performing Clinician Start: 03-18-2025 Radionuclide imaging of perfusion of myocardium under exercise stress Dr. Estuardo Jimenez DO Work Phone: Start: 03-15-2025 CT angiography of chest with contrast Dr. Estuardo Jimenez DO Work Phone: Start: 03-15-2025 D-dimer assay, quantitative Dr. Estuardo Jimenez DO Work Phone: Comment on above: D-Dimer ELEVATED (>0.49): Additional opal dies and clinicalassessments are indicated to conclude diagnosis of:Deep Vein Thrombosis (DVT) or Pulmonary Embolism (PE) Start: 10-17-2022 End: 10-17-2022 Knee 4 or More Views Procedure Note: See Note; NOTES: [facility] [address] [place] [address] Knee 4 or More Views MR#: [id number] Acct: [id number] Name: DARRIUS PADRON Rep #: [id number] : 1965 M [id number] From: Robert paul MD PCP: Dr. Estuardo Jimenez DO Status: DEP AMB Study: Knee 4 or More Views Date of Exam: 10/17/22 Exam# [id number] Ordering Dr: Estuardo Jimenez DO STUDY: X-RAY - RIGHT KNEE REASON FOR EXAM: Male, 57 years old. PAIN TECHNIQUE: 4 view(s) of the knee. COMPARISON: 02/12/2013. FINDINGS: Stable appearance of medial tibiofemoral compartment partial arthroplasty. Prominent narrowing of the joint space. No gross disease seen of the component. There is chondrocalcinosis in the lateral tibiofemoral compartment. Mild patellofemoral degenerative changes are seen. Probable small effusion. RAD/Knee 4 or More Views IMPRESSION: Medial compartment partial joint arthroplasty. No definite change or acute abnormality since prior study. Electronically Signed: Robert Gillespie MD at 17:17 EDT , CC: Dr. Estuardo Jimenez DO Supervisor Beater Room: Signed Estuardo Jimenez DO Work Phone: Start: 09-28-2022 Plain chest X-ray Dr. Estuardo Jimenez Work Phone: Start: 09-28-2022 End: 09-28-2022 Chest PA and Lateral Procedure Note: See Note; NOTES: [facility] [address] [place] [id number] Chest PA and Lateral MR#: [id number] Acct: [id number] Name: DARRIUS PADRON Rep #: [id number] : 1965 M 57 From: Ricki Vu MD PCP: Dr. Estuardo Jimenez DO Status: DEP AMB Study: Chest PA and Lateral Date of Exam: 09/28/22 Exam# [id number] Ordering Dr: Estuardo Jimenez DO STUDY: X-RAY CHEST REASON FOR EXAM: Male, 57 years old. postop fever, STAT -- postop fever TECHNIQUE: Frontal and lateral views of the chest. COMPARISON: July 24, 2021 ___ FINDINGS: The lungs are clear and hyper expanded. There is no demonstrated pleural abnormality. Normal size heart. Normal mediastinum and claude. Normal visualized pulmonary arteries. Normal visualized aortic arch and descending thoracic aorta. Normal visualized thoracic spine. . Bilateral rib fractures. There is no demonstrated abnormality of the visualized soft tissue structures of the upper abdomen. ___ RAD/Chest PA and Lateral IMPRESSION: No demonstrated acute cardiopulmonary process. Electronically Signed: Ricki Vu MD at 12:24 EDT , CC: Dr. Estuardo Jimenez DO Supervisor Beater Room: Signed Estuardo Jimenez DO Work Phone: Start: 08-29-2022 End: 08-29-2022 Colonoscopy Report Procedure Note: See Note; NOTES: [facility] Medical Records Department [address] [place] [id number] Colonoscopy Report MR#: [id number] Acct: [id number] Name: DARRIUS PADRON Rep #: [id number] : 1965 57 From: Ashok Billingsley DO PCP: Dr. Estuardo Jimenez DO [place] [place] Name: Darrius Padron Procedure Date: 08/29/2022 7:05 AM Date of : 1965 Age: 57 Procedure: Colonoscopy Indications: Screening for colorectal malignant neoplasm Providers: Ashok Billingsley DO Medicines: Monitored Anesthesia Care Patient Profile: This is a 57 year old male. Refer to note in patient chart for documentation of history and physical. Last Colonoscopy: 10 years ago. Complications: No immediate complications. Procedure: Pre-Anesthesia Assessment: - Prior to the procedure, a History and Physical was performed, and patient medications and allergies were reviewed. The risks and benefits of the procedure and the sedation options and risks were discussed with the patient. All questions were answered and informed consent was obtained. Patient identification and proposed procedure were verified by the physician in the pre-procedure area. Mental Status Examination: alert and oriented. Airway Examination: normal oropharyngeal airway and neck mobility. Respiratory Examination: clear to auscultation. CV Examination: normal. Prophylactic Antibiotics: The patient does not require prophylactic antibiotics. Prior Anticoagulants: The patient has taken no previous anticoagulant or antiplatelet agents. After reviewing the risks and benefits, the patient was deemed in satisfactory condition to undergo the procedure. The anesthesia plan was to use moderate sedation / analgesia (conscious sedation). Immediately prior to administration of medications, the patient was re-assessed for adequacy to receive sedatives. The heart rate, respiratory rate, oxygen saturations, blood pressure, adequacy of pulmonary ventilation, and response to care were monitored throughout the procedure. The physical status of the patient was re-assessed after the procedure. After I obtained informed consent, the scope was passed under direct vision. Throughout the procedure, the patient's blood pressure, pulse, and oxygen saturations were monitored continuously. The colonoscope was introduced through the anus and advanced to the cecum, identified by appendiceal orifice and ileocecal valve. The terminal ileum, ileocecal valve, appendiceal orifice, and rectum were photographed. Scope In: 7:16:39 AM Scope Withdrawal Time 0 hours 9 minutes 50 seconds Scope Out: 7:29:36 AM Total Procedure Duration Time 0 hours 12 minutes 57 seconds Findings: The perianal and digital rectal examinations were normal. A 5 mm polyp was found in the sigmoid colon. The polyp was sessile. The polyp was removed with a jumbo cold forceps. Resection and retrieval were complete. Verification of patient identification for the specimen was done. Estimated blood loss was minimal. Impression: - One 5 mm polyp in the sigmoid colon, removed with a jumbo cold forceps. Resected and retrieved. Recommendation: - Repeat colonoscopy in 5 years for surveillance. - Continue present medications. Procedure Code(s): --- Professional --- 83744, Colonoscopy, flexible; with biopsy, single or multiple CPT copyright 2017 [employer]. All rights reserved. The codes documented in this report are preliminary and upon certified coder review may be revised to meet current compliance requirements. Ashok Billingsley DO 08/29/2022 7:35:18 AM This report has been signed electronically. Number of Addenda: 0 Note Initiated On: 08/29/2022 7:05 AM 08/29/22 0735 Date ___ Ashok Billingsley DO Cosigner Signature: Date ___ (if indicated) CC: Dr. Estuardo Jimenez DO; Ashok Billingsley DO Date Dictated: 08/29/22 0705 Date Transcribed: Supervisor Beater Room: MEGHNA Jimenez DO Work Phone: Start: 08-29-[address] Estuardo Jimenez Work Phone: Start: 08-29-2022 End: 08-29-2022 History and Physical Exam Procedure Note: See Note; NOTES: [facility] Medical Records Department [address] [place] [id number] History Physical Exam 08/29/22 0641 MR#: [id number] Acct: [id number] Name: DARRIUS PADRON Rep #: [id number] : 1965 57 From: Ashok Billingsley DO PCP: Dr. Estuardo Jimenez DO Status:[facility] Location: [place] [address] HPI - General General Date of Admission: 08/29/22 Date of Service: 08/29/22 Chief Complaint: Screening colonoscopy HPI Narrative DARRIUS PADRON, is a 57 M who presents today for screening colonoscopy. He denies any abdominal pain. He has a past medical history of CAD, hypothyroidism, hypercholesterolemia, gastroesophageal reflux use and type 1 diabetes. He arrives here for screening colonoscopy. He also denies any constipation, diarrhea or lower GI bleeding. He had a colonoscopy possibly 10 years ago and that was normal. He does have a positive family history of colon cancer in his father. [facility] Medical History (Updated 08/23/22 @ 09:23 by Carol Ann Clarke) Abnormal cardiovascular stress test Arthritis Atherosclerotic heart disease of [place] coronary artery without angina pectoris Back pain Bilateral foot pain BPH (benign prostatic hyperplasia) Cardiology follow-up encounter Change in bowel habits Coronary artery disease Diabetes Diarrhea, secretory Elevated coronary artery calcium score Erectile dysfunction Essential hypertension Family history of malignant neoplasm of digestive organs Food impaction of esophagus Gastric reflux Hair loss High cholesterol History of pain when walking History of steroid therapy History of stress test Hypercholesterolemia Insulin dependent diabetes mellitus Kidney stones Lumbar radiculopathy Mouth ulcers Non-smoker Odynophagia Osteoarthritis Polyuria PVD (peripheral vascular disease) Schatzki's ring Thyroid disease Ulnar neuropathy Vitamin D deficiency Home Medications finasteride 1 mg tablet 1 mg PO DAILY 08/03/19 [History Last Taken 05/18/21] insulin aspart U-100 100 unit/mL (3 mL) subcutaneous pen (Novolog FlexPen U-100 Insulin aspart) See Protocol SQ DAILY 08/03/19 [History Last Taken 1 Day Ago 04/21/21] insulin glargine 100 unit/mL (3 mL) subcutaneous pen 20 units SQ 0800 08/03/19 [History Last Taken 1 Day Ago 04/21/21] levothyroxine 175 mcg tablet 175 mcg PO DAILY 08/03/19 [History Last Taken 05/18/21] lisinopril 2.5 mg tablet 2.5 mg PO DAILY 08/03/19 [History Last Taken 05/18/21] omeprazole 20 mg tablet,delayed release 20 mg PO DAILY 08/03/19 [History Last Taken 05/18/21] aspirin 81 mg tablet,delayed release (Adult Aspirin Regimen) 81 mg PO DAILY 05/15/21 [History Last Taken 05/18/21] tadalafil 5 mg tablet 0.5 tab PO DAILY 01/07/22 [History Last Taken Unknown] naproxen sodium 220 mg tablet (Aleve) 660 mg PO BID PRN Pain 03/24/22 [History Last Taken Unknown] rosuvastatin 40 mg tablet (Crestor) 10 mg PO DAILY 03/24/22 [History Last Taken Unknown] vit P-gaxpjfv-gpxzwwzla-rutin-herb19 6 500 mg-50 mg-25 mg-40 mg tablet (Bioflex) 2 tab PO DAILY 03/24/22 [History Last Taken Unknown] Allergy/AdvReac Type Severity Reaction Status Date / Time No Known Allergies Allergy Verified 08/29/22 06:35 Family History Father Colon cancer Other Thyroid disorder Surgical History (Updated 08/23/22 @ 09:23 by Carol Ann Clarke) History of colonoscopy History of esophagogastroduodenoscopy (EGD) (08/2019) History of left heart catheterization (05/18/21) Hx of knee surgery Social History household members: spouse Smoking Status: Never smoker alcohol intake: current substance use type: does not use ROS Review of Systems ROS Unobtainable: other Constitutional Constitutional: Denies fatigue, fever(s), poor appetite, weight gain or weight loss ENT HEENT: Denies mouth lesions Cardiovascular Cardiovascular: Denies abdominal bloating, abdominal edema or abdominal pain Respiratory/Chest Respiratory/Chest: Denies change in mental status, change in phlegm color, chest congestion or chest tightness Gastrointestinal Gastrointestinal: Denies belching, bloating, change in bowel habits, change in stool character, chewing difficulty, coffee ground emesis, constipation, cramping, diarrhea, dyspepsia, dysphagia, early satiety, excessive flatus, fecal incontinence, heartburn, hematemesis, hematochezia, hemorrhoids, loose stools, melena, nausea, odynophagia, rectal bleeding, tenesmus, vomiting or weight changes Genitourinary Genitourinary: Denies abdominal discomfort, burning urination or itching Musculoskeletal Musculoskeletal: Reports as per HPI; Denies muscle weakness or myalgias Integumentary Integumentary: Denies jaundice Neurologic Neurologic: Denies lack of coordination or weakness Psychiatric Psychiatric: Denies confusion, depression, memory loss, mood swings, paranoia or suicidal ideation Endocrine Endocrinology: Denies systems reviewed and no addt'l complaints, except as documented Hematologic/Lymphatic Hematologic/Lymphatic: Denies anemia, easy bleeding, easy bruising or lymphadenopathy Allergic/Immunologic Allergic/Immunologic: Denies systems reviewed and no addt'l complaints, except as documented Vital Signs Vital Signs Vital Signs: 08/29/22 06:36 08/29/22 06:40 Temperature 97.8 F Temperature Source Temporal Pulse Rate 84 Respiratory Rate 16 Respiratory Pattern Normal Blood Pressure 150/87 H Blood Pressure Mean 108 Blood Pressure Source Monitor Blood Pressure Position Semi-Fowlers Blood Pressure Location Left Arm Pulse Ox 97 Oxygen Delivery Method Room Air Weight Weight: 171 lb 15.369 oz Body Mass Index (BMI) 22.6 Physical Exam Const alert General Appearance: cooperative Orientation / Consciousness: oriented to person HEENT hearing grossly normal bilaterally Head and Scalp: normal to inspection Face and Sinus: face symmetric Nose: external nose normal Mouth: oral and palatal mucosa normal Eyes conjunctivae normal General Eye: normal appearance of both eyes Neck full ROM General: normal visual inspection Lymph Lymphatic: no lymphadenopathy noted Chest inspection of chest normal and palpation of chest normal Chest: symmetrical chest wall rise Resp normal respiratory effort Effort and Inspection: able to speak in complete sentences Cardio regular rate GI non-distended Percussion: normal to percussion Rectal Exam: deferred Neuro Speech: speech normal Gait (Neuro): normal gait Assessment Plan Assessment/Plan (1) Encounter for screening for malignant neoplasm of colon: PLAN: He was explained alternatives, risk, benefits including outstanding bleeding, infection, sepsis, perforation, need for mergers or . He will have an ASA of 1. 08/29/22 0643 <Electronically signed by Ashok Billingsley DO> Cosigner Signature (if applicable): CC: Dr. Estuardo Jimenez DO; Ashok Billingsley DO Signed Estuardo Jimenez DO Work Phone: Start: 03-24-2022 End: 03-24-2022 Emergency Department Summary Procedure Note: See Note; NOTES: [facility] Medical Records Department [address] [place] [id number] Emergency Department Summary 03/24/22 MR#: [id number] Acct: [id number] Name: DARRIUS PADRON Rep #: [id number] : 1965 56 From: Gray Phillip MD PCP: Dr. Estuardo Jimenez DO Status:REG ER Location: ED HPI History of Present Illness Chief Complaint: Allergic Reaction Detail of Chief Complaint: Suspected allergic reaction Informant: patient and spouse/S.O. Onset/Context/Timing Onset: Today (Facial swelling, swelling of tongue and posterior pharynx and HPI), Yesterday (Conjunctivitis, erythema of mouth) and Days Context: Sudden Onset Timing: Continuous Quality: Per HPI Location: Systemic and face upper airway Current Severity: Moderate Maximum Severity: Moderate Worsened by: Uncertain Relieved by: Nothing Associated Symptoms Associated Symptoms: Change in voice and difficulty swallowing Narrative Narrative: Patient is a 56-year-old male with type 1 diabetes, hypothyroidism, GERD and hypercholesterolemia who presents with facial swelling that started today with change in voice and difficulty swallowing. On Saturday he drank a vitamin beverage that apparently had a bee in it. he had significant diarrhea. He states he had 9 mushy watery stools. There is no vomiting. His who is a physician noted that his eyes were injected Saturday. The mouth sores may have started before Saturday. 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 He has not noted a rash. Prior similar symptoms: No Recent Illness/Hospitalization: No [facility] Medical History Abnormal cardiovascular stress test Atherosclerotic heart disease of [place] coronary artery without angina pectoris BPH (benign prostatic hyperplasia) Coronary artery disease Elevated coronary artery calcium score Essential hypertension Food impaction of esophagus Hypercholesterolemia Schatzki's ring Home Medications finasteride 1 mg tablet 1 mg PO DAILY 08/03/19 [History Last Taken 05/18/21] insulin aspart U-100 100 unit/mL (3 mL) subcutaneous pen See Protocol SQ DAILY 08/03/19 [History Last Taken 1 Day Ago 04/21/21] insulin glargine 100 unit/mL (3 mL) subcutaneous pen 10 units SQ ACHS 08/03/19 [History Last Taken 1 Day Ago 04/21/21] levothyroxine 175 mcg tablet 175 mcg PO DAILY 08/03/19 [History Last Taken 05/18/21] lisinopril 2.5 mg tablet 2.5 mg PO DAILY 08/03/19 [History Last Taken 05/18/21] omeprazole 20 mg tablet,delayed release 20 mg PO DAILY 08/03/19 [History Last Taken 05/18/21] insulin glargine 100 unit/mL subcutaneous cartridge 20 unit subcut DAILY 04/22/21 [History Last Taken 1 Day Ago 04/21/21] aspirin 81 mg tablet,delayed release (Adult Aspirin Regimen) 81 mg PO DAILY 05/15/21 [History Last Taken 05/18/21] tadalafil 5 mg tablet 0.5 tab PO DAILY 01/07/22 [History Last Taken Unknown] famotidine 20 mg tablet (Pepcid) 20 mg PO BID #7 tabs 03/24/22 [Rx Last Taken Unknown] naproxen sodium 220 mg tablet (Aleve) 660 mg PO BID PRN Pain 03/24/22 [History Last Taken Unknown] prednisone 20 mg tablet 60 mg PO DAILY #12 TABLETS 03/24/22 [Rx Last Taken Unknown] rosuvastatin 40 mg tablet (Crestor) 20 mg PO DAILY 03/24/22 [History Last Taken Unknown] vit B-wdivnix-zqzjzqlcg-rutin-herb19 6 500 mg-50 mg-25 mg-40 mg tablet (Bioflex) tab PO 03/24/22 [History Last Taken Unknown] Allergy/AdvReac Type Severity Reaction Status Date / Time No Known Allergies Allergy Verified 03/24/22 08:32 Surgical History History of esophagogastroduodenoscopy (EGD) (08/2019) History of left heart catheterization (05/18/21) Social History (Updated 03/24/22 @ 08:[address] Gray Phillip MD) household members: spouse Smoking Status: Never smoker alcohol intake: current substance use type: does not use ROS ROS ED Constitutional Constitutional ED: Denies chills, fever(s), subjective, sweats or weight loss Eyes Eyes: Reports other Details: Per HPI ; Denies blurry vision, change in vision or diplopia ENT ENT ED: Reports sore throat and other Details: Per HPI ; Denies ear pain or rhinorrhea Cardiovascular Cardiovascular: Denies chest pain or palpitations Respiratory/Chest Respiratory/Chest: Denies cough, dyspnea or dyspnea on exertion Gastrointestinal Gastrointestinal: Reports diarrhea; Denies abdominal pain, constipation, melena, nausea or vomiting Genitourinary Genitourinary ED: Denies dysuria, hematuria or urinary frequency Musculoskeletal Musculoskeletal: Denies arthralgias, back pain, myalgias or neck pain Integumentary Reports rash and other Details: Rash developed since patient's arrival. 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 Patient was diagnosed with COVID April 2021. ; Denies weakness Endocrine Endocrinology: Denies polydipsia, polyphagia or polyuria Hematologic/Lymphatic Hematologic/Lymphatic: Reports systems reviewed and no addt'l complaints, except as documented and as per HPI; Denies anemia or easy bruising Allergic/Immunologic Allergic/Immunologic ED: Reports mouth swelling and tongue swelling; Denies urticaria EXAM Physical Exam Const Vital Signs: 03/24/22 08:32 03/24/22 11:32 03/24/22 10:31 Temperature 97.3 F L Temperature Source Temporal Pulse Rate 95 77 86 Respiratory Rate 18 18 18 Blood Pressure 152/89 H 140/73 H 146/80 H Blood Pressure Mean 110 95 102 Pulse Ox 98 96 100 Oxygen Delivery Method Room Air Room Air Room Air Positive well nourished and well developed General Appearance ED: well developed and NAD; Negative for pallor HEENT Reports moist mucous membranes HEENT Narrative: Uvula is swollen. Tongue may be slightly swollen. Patient has erythema of the buccal surface with ulcerative lesions that are sensitive/tender. There is also evidence of angioedema of the lower lip. Gingiva appears normal. There is facial swelling involving predominantly the lower eyelids compared to upper. Ears are normal. Eyes PERRL and EOMs intact bilaterally Eyes Narrative: Conjunctive is injected. There is an ulcerative lesion noted lower lid laterally on the right only. General Eye ED: Negative for pale conjunctiva or scleral icterus Neck no lymphadenopathy, supple and no JVD Neck Narrative: Trachea is midline. There is no inspiratory expiratory stridor. Chest Wall inspection of chest normal and palpation of chest normal Resp normal respiratory effort and clear to auscultation bilaterally Cardio regular rate, regular rhythm, S1 normal heart sound, S2 normal heart sound and no murmurs GI normal to inspection, nondistended, normoactive bowel sounds, non-tender, non-distended and no masses; Negative for hepatosplenomegaly Palpation: soft Narrative: There is no inguinal lymphadenopathy. Back/Spine no CVA tenderness Extremity normal to inspection Extremity Narrative: There is no axillary lymphadenopathy. Neuro oriented x3, CN's II-XII intact bilaterally and no sensory deficits noted Sensorium / Orientation: alert Motor Exam: strength 5/5 throughout Psych mental status grossly normal Skin No no rashes or lesions noted Skin Narrative: She has a blanching erythematous rash. There is a negative Nikolsky sign. General Skin Exam: Negative for jaundice or pallor MDM MDM MDM Narrative Medical decision making narrative: Initially with no rash concerned this may represent angioedema due to lisinopril. Since patient has developed a blanching erythematous rash concerned this is an allergic reaction. However with involvement of the conjunctive a and oral mucosa need to entertain possibility of Barrera-Nael syndrome major. Also concerned that the lesions in his mouth may represent herpetic infection. Since patient now has erythematous blanching rash with angioedema concerned this represents allergic reaction. Since he has dysphonia and had difficulty swallowing this morning when he drank a beverage at home we will treat with epinephrine, H1 and H2 jed and Solu-Medrol. Lab Data Attestation: I reviewed the patient's lab results. Labs: Laboratory Results - last 24 hr 03/24/22 03/24/22 03/24/22 08:55 08:55 08:55 WBC 7.3 RBC 4.72 Hgb 15.3 Hct 44.6 MCV 94.5 H MCH 32.4 H MCHC 34.3 RDW Std Deviation 44.1 H RDW Coeff of Elier 12.6 Plt Count 303 MPV 9.5 Immature Gran % (Auto) 0.100 Neut % (Auto) 70.9 H Lymph % (Auto) 12.6 L [place] % (Auto) 8.9 Eos % (Auto) 7.0 H Baso % (Auto) 0.5 Absolute Neuts (auto) 5.2 Absolute Lymphs (auto) 0.92 Nucleated RBC % 0 ESR 5 PT 13.9 INR 1.1 APTT 26.0 Sodium 139 Potassium 4.3 Chloride 106 Carbon Dioxide 29.0 Anion Gap 4 L BUN 18 Creatinine 1.15 Estim Creat Clear Calc 81.06 Est GFR (MDRD) Af Amer 84 Est GFR (MDRD) Non-Af 70 BUN/Creatinine Ratio 15.7 Glucose 143 H Calcium 9.6 Total Bilirubin 0.80 AST 27 ALT 35 Alkaline Phosphatase 61 C-React Prot Ext Range 8.49 H Total Protein 7.0 Albumin 3.4 Globulin 3.6 Albumin/Globulin Ratio 0.9 Treatment and Re-Evaluation Narrative: Patient was reassessed at 1015. Facial swelling is improved. Swelling of his lip has improved significantly. His uvula is no longer edematous. His blanching erythematous rash has resolved. Patient was reassessed at 1145. His facial swelling has essentially resolved. Conjunctivitis has improved. There is no angioedema noted. There is no wheezing with auscultation of lungs. Heart is regular. There is no hemodynamic instability. Patient was reassessed at 1248. His symptoms have totally resolved. His has an EpiPen at home. She will contact Dr. Ohara for allergy testing. Critical Care Time Critical Care Time: Yes Critical care time (excluding procedures): 30-74 minutes (31), Including time spent: (History, physical, documentation,), Discussing w/Patient /or Family/Bobtailer and Performing Direct Patient Care at Bedside Discharge Plan Triage Chief Complaint: Allergic Reaction Other Complaint: Edema ED Provider: Gray Phillip Dx/Rx/DC Orders Clinical Impression: Allergic angioedema, Diarrhea, Essential hypertension, Hypothyroidism, Hyperglycemia due to type 1 diabetes mellitus Prescriptions: New prednisone 20 mg tablet 60 mg PO DAILY Qty: 12 0RF famotidine [Pepcid] 20 mg tablet 20 mg PO BID Qty: 7 0RF No Action levothyroxine 175 MCG tablet 175 mcg PO DAILY lisinopril 2.5 MG tablet 2.5 mg PO DAILY finasteride 1 MG tablet 1 mg PO DAILY insulin aspart U-100 100 unit/mL (3 mL) insulin pen See Protocol SQ DAILY Protocol: 2. Sliding Scale Insulin Low-Med Dosing Condition: 150-209 mg/dl = 1 unit Condition: 210-269 mg/dl = 2 units Condition: 270-329 mg/dl = 3 units Condition: 330-389 mg/dl = 4 units Condition: 390-449 mg/dl = 5 units Condition: Greater than 449 call physician Protocol Text: - Use for Total Daily Dose of Insulin 28-36 units - Average size patients LOW MEDIUM DOSING ALGORITHM insulin glargine 100 unit/mL (3 mL) insulin pen 10 units SQ ACHS Rx Instructions: SLIDING SCALE NO MORE THAN 10 omeprazole 20 MG tablet,delayed release (DR/EC) 20 mg PO DAILY Lantus U-100 Insulin 100 unit/mL Cartridge 20 unit SUBCUT DAILY tadalafil 5 mg tablet 0.5 tab PO DAILY Label Comments: TAKE 1 TABLET BY MOUTH EVERY DAY naproxen sodium [Aleve] 220 mg Tablet 660 mg PO BID PRN (Reason: Pain) rosuvastatin [Crestor] 40 mg tablet 20 mg PO DAILY Bioflex 790-39-62-40 mg Tablet PO aspirin [Adult Aspirin Regimen] 81 mg tablet,delayed release (DR/EC) 81 mg PO DAILY Primary Care Provider: Estuardo Jimenez Referrals: Estuardo Jimenez, DO [Primary Care Provider] - Activity Restrictions/Additional Instructions: 1. Contact Dr. Ohara for allergy testing 2. Take 25 mg of Benadryl every 6 hours for the next 3 days. 3. Take prescribed medication until gone. Disposition Disposition: Home, Self Care What to do if you have Problems For any increased pain, shortness of breath, bleeding, nausea or vomiting, chest pain, or any unexpected problems, contact your Primary Care Provider. Call [facility] ([phone]) or report to the closest Emergency Room. Call 911 if necessary. 03/24/22 1253 <Electronically signed by Gray Phillip MD> Cosigner Signature (if applicable): CC: Dr. Estuardo Jimenez DO Signed Estuardo Jimenez DO Work Phone: Start: 03-24-2022 End: 03-27-2022 12 Lead EKG Procedure Note: See Note; NOTES: [facility] Cardiovascular Services [address] [place] [id number] 12 Lead EKG 03/24/22 0904 MR#: [id number] Acct: [id number] Name: DARRIUS PADRON Rep #: [id number] : 1965 56 From: To Randall MD Attending Dr: Status: DEP ER Ordering Dr: Gray Phillip MD Date: 03/24/22 Location: ED Sex: M C Admitted: Test Reason : DYSRHYTHMIA Blood Pressure : / mmHG Vent. Rate : 082 BPM Atrial Rate : 082 BPM P-R Int : 156 ms QRS Dur : 082 ms QT Int : 364 ms P-R-T Axes : 075 070 052 degrees QTc Int : 425 ms Normal sinus rhythm Normal ECG Confirmed by TO RANDALL MD ([id number]), fashion editor PRISCILLA VALENCIA ([id number]) on 03/27/2022 1:45:19 PM Referred By: MT Confirmed By:TO RANDALL MD 03/27/22 6752 Date ___ To Randall MD CC: Dr. Estuardo Jimenez DO; Dr. Gray Phillip MD Signed Estuardo Jimenez DO Work Phone: Start: 02-21-2022 End: 02-21-2022 NCS and/or EMG Patient Procedure Note: See Note; NOTES: [facility] Pulmonary Services/Neurology [address] [place] [address] MR#: [id number] Acct: [id number] Name: DARRIUS PADRON Rep #: [id number] : 1965 56 From: Evgeny Osullivan MD Referring Dr: Estuardo Jimenez DO Status: REG CLI Location: PSN Date: 02/21/22 Sex: M C NCS and/or EMG Patient Report Ordering Doctor: Estuardo Jimenez DATE OF SERVICE: 02/21/22 Darrius presents for electrodiagnostic testing of the left upper limb. He reports intermittent numbness and tingling in the forearm and hand Electrodiagnostic findings: Left median motor nerve demonstrates normal distal latency and amplitude with reduced conduction velocity. Prolonged left median sensory latency at the wrist. Normal ulnar and radial sensory responses. Left ulnar motor nerve demonstrates normal distal latency and amplitude without a significant drop in conduction across the elbow. Prolonged median and ulnar F waves are noted. On needle EMG, all muscles tested in the left upper limb showed no evidence of denervation with normal motor unit action potentials Electrodiagnostic impression: This is an abnormal study in the left upper limb 1. Electrodiagnostic findings demonstrate left-sided median mononeuropathy. This is consistent with a mild left carpal tunnel syndrome 2. There is no electrodiagnostic evidence for ulnar neuropathy, including cubital tunnel syndrome 3. No electrodiagnostic evidence is noted for cervical radiculopathy. 02/21/221535 <Electronically signed by Evgeny Osullivan MD> Date ___ Evgeny Osullivan MD CC: Dr. Evgeny Osullvian MD; Dr. Estuardo Jimenez DO Date Dictated: 02/21/221533 Date Transcribed: 02/21/221533 Supervisor Beater Room: AZUL Signed Estuardo Jimenez DO Work Phone: Start: 01-15-20[address] MRI of cervical spine Dr. Estuardo Jimenez Work Phone: Start: 01-15-2022 End: 01-15-2022 Spine Cervical (Routine) Comments: See Note; NOTES: [facility] Imaging Services [address] [place] [address] Spine Cervical (Routine) MR#: [id number] Acct: [id number] Name: DARRIUS PADRON Rep #: [id number] : 1965 M 56 From: Willian Bonilla MD PCP: Dr. Estuardo Jimenez, DO Status: REG CLI Study: Spine Cervical (Routine) Date of Exam: Exam# [id number] Ordering Dr: Estuardo Jimenez DO STUDY: MRI CERVICAL SPINE WITHOUT CONTRAST REASON FOR EXAM: Male, 56 years old.with neck pain. TECHNIQUE: Standardized fat and water weighted pulse sequences were obtained in the sagittal and axial planes. COMPARISON: None ___ FINDINGS: Unremarkable alignment of the columns of the cervical spine is visualized. No evidence of spondylolisthesis. The cervical vertebral bodies demonstrate unremarkable contours, no evidence of compression deformity is seen. Mild degenerative endplate changes are visualized. Subtle anterior osteophyte osteophyte formation is seen. No abnormal signal intensity visualized within the marrow of the cervical vertebral body on the STIR sequence to suggest fracture, edema or infiltrative process. Disc desiccation visualized in the cervical spine, decreased intervertebral disc height visualized most prominent at C5-C6 and C6-C7. No abnormal density visualized within the spinal canal. C2-3: Mild degenerative changes visualized, no significant narrowing of the spinal canal or neuroforamina is visualized at this level. C3-4: Mild degenerative disc osteophyte complex and left uncovertebral disease visualized at this level, no significant narrowing of the spinal canal or bilateral neuroforamina is visualized at this level. C4-5: Degenerative disc osteophyte complex and bilateral uncovertebral disease visualized, mild effacement of the ventral CSF spaces with suggestion of subtle narrowing of the spinal canal, mild to moderate narrowing of the right neural foramina and mild narrowing of the left neuroforamina is visualized at this level. C5-6: Degenerative disc osteophyte complex and bilateral uncovertebral disease visualized, mild narrowing of the spinal canal, mild to moderate narrowing of the right neural foramina and severe narrowing of the left neuroforamina is visualized at this level. C6-7: Degenerative disc osteophyte complex and bilateral uncovertebral disease visualized, mild narrowing of the spinal canal, mild narrowing of the right neural foramina and moderate to severe narrowing of the left neuroforamina is visualized at this level. C7-T1: Degenerative changes visualized with no significant narrowing of the spinal canal and mild narrowing of bilateral neuroforamina seen at this level. No abnormal signal intensity visualized within the cervical cord. Normal visualized soft tissue structures. ___ MRI/Spine Cervical (Routine) IMPRESSION: Degenerative changes of the cervical spine visualized most prominent at C5-C6 and C6-C7. Electronically Signed: Willian Bonilla MD at 12:04 EDT Reading Location ID and State: [facility] / [place] Tel , Service support , CC: Dr. Estuardo Jimenez DO Supervisor Beater Room: Signed Estuardo Jimenez DO Work Phone: Start: 01-07-2022 End: 01-07-2022 Emergency Department Summary Comments: See Note; NOTES: [facility] Medical Records Department [address] [place] [address] Emergency Department Summary 01/07/22 MR#: [id number] Acct: [id number] Name: DARRIUS PADRON Rep #: [id number] : 1965 56 From: Norbert Mclaughlin DO PCP: Dr. Estuardo Jimenez DO Status:DEP ER Location: ED HPI History of Present Illness Chief Complaint: Flank Pain Detail of Chief Complaint: Left flank pain Informant: patient Narrative Narrative: Patient presents to the emergency department complaint of left flank pain that started around lunchtime today. Patient states that he was eating lunch about 1230 when he started having sudden onset of left flank pain. Patient has never had pain like this before. The pain was severe. Currently rates it a 7 out of 10. He denies nausea or vomiting. He has not had any history of kidney stones. He does have history of spinal stenosis and radiculopathy but states this pain is very different. This pain does not radiate down his legs. He does not have any pain radiating around to the front of the abdomen. Patient denies dysuria, hematuria, or frequency. Prior similar symptoms: No PFSH PFSH Medical History (Updated 01/07/22 @ 16:[address] Norbert Mclaughlin, DO) Abnormal cardiovascular stress test Atherosclerotic heart disease of [place] coronary artery without angina pectoris BPH (benign prostatic hyperplasia) Coronary artery disease Elevated coronary artery calcium score Essential hypertension Food impaction of esophagus Hypercholesterolemia Schatzki's ring Home Medications finasteride 1 mg tablet 1 mg PO DAILY 08/03/19 [History Last Taken 05/18/21] insulin aspart U-100 100 unit/mL (3 mL) subcutaneous pen See Protocol SQ DAILY 08/03/19 [History Last Taken 1 Day Ago 04/21/21] insulin glargine 100 unit/mL (3 mL) subcutaneous pen 10 units SQ ACHS 08/03/19 [History Last Taken 1 Day Ago 04/21/21] levothyroxine 175 mcg tablet 175 mcg PO DAILY 08/03/19 [History Last Taken 05/18/21] lisinopril 2.5 mg tablet 2.5 mg PO DAILY 08/03/19 [History Last Taken 05/18/21] omeprazole 20 mg tablet,delayed release 20 mg PO DAILY 08/03/19 [History Last Taken 05/18/21] insulin glargine 100 unit/mL subcutaneous cartridge 16 unit subcut DAILY 04/22/21 [History Last Taken 1 Day Ago 04/21/21] aspirin 81 mg tablet,delayed release (Adult Aspirin Regimen) 81 mg PO DAILY 05/15/21 [History Last Taken 05/18/21] rosuvastatin 40 mg tablet (Crestor) 40 mg PO DAILY #90 tabs 05/18/21 [Rx Last Taken Unknown] hydrocodone-acetaminophen 5-325mg 5mg-325mg 1 tab PO Q4H PRN PRN Pain 2 days #10 TABLETS 01/07/22 [Rx Last Taken Unknown] ondansetron 4 mg disintegrating tablet 4 mg PO Q8H PRN PRN Nausea #10 tabs 01/07/22 [Rx Last Taken Unknown] tadalafil 5 mg tablet 0.5 tab PO DAILY 01/07/22 [History Last Taken Unknown] Allergy/AdvReac Type Severity Reaction Status Date / Time No Known Allergies Allergy Verified 01/07/22 14:41 Surgical History History of esophagogastroduodenoscopy (EGD) (08/2019) History of left heart catheterization (05/18/21) Social History household members: spouse Smoking Status: Never smoker substance use type: does not use ROS ROS ED Review of Systems ROS Unobtainable: other Constitutional Constitutional ED: Reports lethargy; Denies chills, fever(s), sweats or weight loss Eyes Eyes: Denies blurry vision, change in vision or diplopia ENT ENT ED: Denies rhinorrhea or sore throat Cardiovascular Cardiovascular: Reports chest pain and racing heartbeat; Denies orthopnea Respiratory/Chest Respiratory/Chest: Reports dyspnea and dyspnea on exertion; Denies cough, orthopnea or sputum Gastrointestinal Gastrointestinal: Denies abdominal pain, diarrhea, nausea or vomiting Genitourinary Genitourinary ED: Denies dysuria, hematuria or urinary frequency Musculoskeletal Musculoskeletal: Reports back pain; Denies arthralgias, myalgias or neck pain Integumentary Denies abscess, Abrasions or rash Neurologic Neurologic: Denies headache(s) or weakness Psychiatric Psychiatric: Denies anxiety, depression or suicidal thoughts Endocrine Endocrinology: Denies polydipsia, polyphagia or polyuria Hematologic/Lymphatic Hematologic/Lymphatic: Denies easy bleeding, easy bruising or lymphadenopathy Allergic/Immunologic Allergic/Immunologic ED: Denies mouth swelling, tongue swelling or urticaria EXAM Physical Exam Const Vital Signs: 01/07/22 14:41 Temperature 97.9 F Temperature Source Temporal Pulse Rate 80 Respiratory Rate 15 Blood Pressure 138/78 H Blood Pressure Mean 98 Pulse Ox 98 Oxygen Delivery Method Room Air Positive well nourished and well developed General Appearance ED: well developed and NAD HEENT Reports TM's clear and moist mucous membranes normocephalic and atraumatic; Negative for trauma or tenderness Tympanic Membrane ED: Yes TM's clear Eyes PERRL and EOMs intact bilaterally General Eye ED: Negative for pale conjunctiva or scleral icterus Neck no lymphadenopathy, supple and no JVD General: Negative for tenderness Chest Wall inspection of chest normal and palpation of chest normal Chest: Negative for tenderness Resp normal respiratory effort and clear to auscultation bilaterally Effort and Inspection: Negative for respiratory distress or pain with movement Auscultation: Negative for rhonchi, wheezes or diminished lung sounds Cardio regular rate, regular rhythm, S1 normal heart sound, S2 normal heart sound and no murmurs Peripheral Pulses: pulses 2+ throughout GI normal to inspection, nondistended, normoactive bowel sounds, soft to palpation, non-tender, non- distended and no masses Back/Spine Back/Spine Narrative: Patient with tenderness palpation over the left CVA. No tenderness over lumbar spine or thoracic spine. He has negative straight leg raises. Normal strength in the lower extremities with normal sensation. Extremity normal to inspection General Extremety ED: Negative for edema General Extremity: Negative for edema Neuro oriented x3, CN's II-XII intact bilaterally, no sensory deficits noted and gait normal Sensorium / Orientation: awake, alert, oriented to person, oriented to place and oriented to time Motor Exam: strength 5/5 throughout and strength abnormal Psych mental status grossly normal Skin no rashes or lesions noted and no wounds MDM MDM MDM Narrative Medical decision making narrative: IV line established on arrival. Patient was given Toradol and Dilaudid half milligram IV. Patient good pain relief with that. Lab work-up was unremarkable. Urinalysis showed no evidence of infection and 0-[address] flank showed a 2 mm stone at the left UVJ with mild left hydroureter. Patient will be discharged to home with a prescription for [place] and Zofran. Patient will be given urine strainers. Patient will be given referral to urology for follow-up. He is advised to return if worsening pain, fever, vomiting, or condition worsen anyway. Lab Data Attestation: I reviewed the patient's lab results. Labs: Laboratory Results - last 24 hr 01/07/22 01/07/22 01/07/22 15:15 15:15 15:15 WBC 6.5 RBC 4.36 L Hgb 13.8 Hct 40.7 MCV 93.3 MCH 31.7 MCHC 33.9 RDW Std Deviation 43.5 RDW Coeff of Elier 12.7 Plt Count 262 MPV 10.0 Immature Gran % (Auto) 0.300 Neut % (Auto) 66.9 Lymph % (Auto) 19.3 [place] % (Auto) 9.7 Eos % (Auto) 3.2 Baso % (Auto) 0.6 Absolute Neuts (auto) 4.3 Absolute Lymphs (auto) 1.25 Nucleated RBC % 0 Sodium 140 Potassium 4.1 Chloride 107 Carbon Dioxide 29.0 Anion Gap 4 L BUN 21 H Creatinine 1.29 Estim Creat Clear Calc 72.26 Est GFR (MDRD) Af Amer 74 Est GFR (MDRD) Non-Af 61 BUN/Creatinine Ratio 16.3 Glucose 118 H Calcium 9.2 Urine Color Yellow Urine Clarity Sl. Cloudy Urine pH 5.0 Ur Specific [place] 1.020 Urine Protein Negative Urine Glucose (UA) Normal Urine Ketones Negative Urine Occult Blood 150 H Urine Nitrite Negative Urine Bilirubin Negative Urine Urobilinogen Normal Ur Leukocyte Esterase Negative Urine RBC 0-5 SEEN Urine WBC 0-5 SEEN Ur Squamous Epith Cells 0-5 SEEN Urine Bacteria 0 SEEN Urine Mucus 0 SEEN Radiography Diagnostic Testing: Clinical Impression(s) from Imaging Studies Abdomen/Pelvis CT 01/07/22 14:58 IMPRESSION: (NOT LISTED IN ORDER OF SIGNIFICANCE) Mild left hydronephroureter caused by 2 mm left UVJ stone. Degenerative findings of the hips. Other findings as above. Electronically Signed: Richy Redding MD at 16:06 EDT Reading Location ID and State: [facility] / [place] , Service support , Discharge Plan Triage Chief Complaint: Flank Pain ED Provider: Norbert Mclaughlin Dx/Rx/DC Orders Clinical Impression: Urolithiasis Instructions: ED Kidney Stone w/ Colic Prescriptions: New hydrocodone-acetaminophen [hydrocodone-acetaminophen] 1 TABLET tablet 1 tab PO Q4H PRN PRN (Reason: Pain) 2 Days Qty: 10 0RF ondansetron [ondansetron] 4 MG tablet 4 mg PO Q8H PRN PRN (Reason: Nausea) Qty: 10 0RF No Action levothyroxine 175 MCG tablet 175 mcg PO DAILY lisinopril 2.5 MG tablet 2.5 mg PO DAILY finasteride 1 MG tablet 1 mg PO DAILY insulin aspart U-100 100 unit/mL (3 mL) insulin pen See Protocol SQ DAILY Protocol: 2. Sliding Scale Insulin Low-Med Dosing Condition: 150-209 mg/dl = 1 unit Condition: 210-269 mg/dl = 2 units Condition: 270-329 mg/dl = 3 units Condition: 330-389 mg/dl = 4 units Condition: 390-449 mg/dl = 5 units Condition: Greater than 449 call physician Protocol Text: - Use for Total Daily Dose of Insulin 28-36 units - Average size patients LOW MEDIUM DOSING ALGORITHM insulin glargine 100 unit/mL (3 mL) insulin pen 10 units SQ ACHS Rx Instructions: SLIDING SCALE NO MORE THAN 10 omeprazole 20 MG tablet,delayed release (DR/EC) 20 mg PO DAILY Lantus U-100 Insulin 100 unit/mL Cartridge 16 unit SUBCUT DAILY tadalafil 5 mg tablet 0.5 tab PO DAILY Label Comments: TAKE 1 TABLET BY MOUTH EVERY DAY aspirin [Adult Aspirin Regimen] 81 mg tablet,delayed release (DR/EC) 81 mg PO DAILY rosuvastatin [Crestor] 40 mg tablet 40 mg PO DAILY Qty: 90 3RF Primary Care Provider: Estuardo Jimenez Referrals: Estuardo Jimenez DO [Primary Care Provider] - Alexandre Roland MD [STAFF PHYSICIAN] - 3-5 Days Disposition Disposition: Home, Self Care What to do if you have Problems For any increased pain, shortness of breath, bleeding, nausea or vomiting, chest pain, or any unexpected problems, contact your Primary Care Provider. Call [facility] ([phone]) or report to the closest Emergency Room. Call 911 if necessary. 01/07/222212 <Electronically signed by Norbert Mclaughlin DO> Cosigner Signature (if applicable): CC: Dr. Estuardo Jimenez DO Signed Estuardo Jimenez DO Work Phone: Start: 01-07-2022 End: 01-07-2022 Abdomen/Pelvis without Cont Comments: See Note; NOTES: [facility] Imaging Services [address] [place] [address] Abdomen/Pelvis without Cont MR#: [id number] Acct: [id number] Name: DARRIUS PADRON Rep #: [id number] : 1965 M 56 From: Richy Paulino PCP: Dr. Estuardo Jimenez, DO Status: REG ER Study: Abdomen/Pelvis without Cont Date of Exam: 12/16 10/06 Exam# [id number] Ordering Dr: Norbert Mclaughlin DO STUDY: CT Abdomen And Pelvis W/O Contrast Injection 01/07/2022 4:03 PM REASON FOR EXAM: Male, 56 years old. ABDOMINAL PAIN Pain Technologist Notes LT FLANK PAIN, NO HX KS, HTN, SCHATZKI''S RING, DB TECHNIQUE: Transaxial images were obtained without oral contrast, and without intravenous contrast. Individualized dose optimization techniques were used for this CT. COMPARISON: None. ___ FINDINGS: There are atherosclerotic calcifications of visualized coronary arteries. The visualized portions of the heart are within normal limits. Unremarkable liver. Unremarkable gallbladder and extrahepatic biliary system. Unremarkable spleen. Unremarkable pancreas. Unremarkable bilateral adrenal glands. No acute findings of the right kidney. Mild left hydronephroureter caused by 2 mm left UVJ stone. Series 2 and 145. Series 601 image 84. Unremarkable visualized stomach. Unremarkable small intestine. There are multiple colonic diverticula consistent with diverticulosis. There is non-visualization of the appendix. There are no acute findings of the abdominal aorta. Unremarkable inferior vena cava. Subcentimeter mesenteric lymph nodes. Unremarkable urinary bladder. Degenerative findings of the hips. Unremarkable 23 abdominal wall. There are diffuse degenerative changes of the visualized lumbar spine. Grade 1 anterolisthesis of L4 on L5. ___ CT/Abdomen/Pelvis without Cont IMPRESSION: (NOT LISTED IN ORDER OF SIGNIFICANCE) Mild left hydronephroureter caused by 2 mm left UVJ stone. Degenerative findings of the hips. Other findings as above. Electronically Signed: Richy Redding MD at 16:06 EDT , CC: Dr. Estuardo Jimenez DO; Dr. Norbert Mclaughlin DO Supervisor Beater Room: Signed Estuardo Jimenez DO Work Phone: Start: 01-07-2022 CT of abdomen and pelvis without contrast Dr. Estuardo Jimenez Work Phone: Start: 12-08-2021 End: 12-08-2021 Cerv Spine 4 or 5 Views Comments: See Note; NOTES: [facility] [address] [place] [address] Cerv Spine 4 or 5 Views MR#: [id number] Acct: [id number] Name: DARRIUS PADRON Rep #: [id number] : 1965 M 56 From: Richy Paulino PCP: Dr. Estuardo Jimenez DO Status: DEP AMB Study: Cerv Spine 4 or 5 Views Date of Exam: 12/08/21 Exam# [id number] Ordering Dr: Estuardo Jimenez DO STUDY: X-RAY - CERVICAL SPINE REASON FOR EXAM: Male, 56 years old. PAIN TECHNIQUE: XR Spine Cervical 4 or 5 Views COMPARISON: None ___ FINDINGS: Normal anterior atlantoaxial articulation. No acute findings of the odontoid process. There is straightening of the normal cervical lordosis. There is multi-level endplate spondylosis. There is multi-level degenerative disc disease with multilevel disc space narrowing. There is multi-level osseous foraminal stenosis. The soft tissue structures are unremarkable. ___ RAD/Cerv Spine 4 or 5 Views IMPRESSION: There are degenerative changes as noted above. Electronically Signed: Richy Redding MD at 18:59 EDT Reading Location ID and State: [facility] / [place] , Service support , CC: Dr. Estuardo Jimenez DO Supervisor Beater Room: Signed Estuardo Jimenez DO Work Phone: Start: 12-08-2021 X-ray of cervical spine Dr. Estuardo Jimenez Work Phone: Start: 09-26-2021 MRI of lumbar spine Dr. Estuardo Jimenez Work Phone: Start: 09-26-2021 End: 09-26-2021 Spine Lumbar (Routine) Comments: See Note; NOTES: [facility] Imaging Services [address] [place] [address] Spine Lumbar (Routine) MR#: [id number] Acct: [id number] Name: DARRIUS PADRON Rep #: [id number] : 1965 M 56 From: Richy Paulino PCP: Dr. Estuardo Jimenez DO Status: REG CLI Study: Spine Lumbar (Routine) Date of Exam: 09/26/21 Exam# [id number] Ordering Dr: Estuardo Jimenez DO STUDY: MR Spine Lumbar W/O Contrast 09/26/2021 5:55 PM REASON FOR EXAM: Male, 56 years old. Back pain Lumbar radiculopathy TECHNIQUE: MR Spine Lumbar W/O Contrast Standardized fat and water weighted pulse sequences were obtained. COMPARISON: None ___ FINDINGS: T12-L1: Normal endplates. Normal disc height, hydration and morphology. Normal bilateral facet joints. Normal central canal and bilateral lateral recesses. Normal bilateral intervertebral neural foramina. Normal lumbar lordosis. There is no substantial scoliosis. Normal conus medullaris that terminates at the L1. L1-2: Normal endplates. Normal disc height and morphology. Normal central canal and intervertebral neuroforamina. There is bilateral ligamentum flavum thickening. L2-3: Normal endplates. Normal disc height, hydration and morphology. Normal bilateral facet joints. Normal central canal and bilateral lateral recesses. Normal bilateral intervertebral neural foramina.There is bilateral ligamentum flavum thickening. Posterior disc bulge. L3-4: Normal endplates. Normal disc height, hydration and morphology. Normal bilateral facet joints. Normal central canal and bilateral lateral recesses. Normal bilateral intervertebral neural foramina. There is bilateral ligamentum flavum thickening. Posterior disc bulge. L4-5: Loss of intervertebral disc height. There is endplate spondylosis of the vertebral body. Disc desiccation. Grade 1 anterolisthesis of L4 on L5. Distance measures 5.4 mm. There is bilateral facet arthropathy. There is bilateral ligamentum flavum thickening. Posterior disc bulge. Bilateral neural foraminal stenosis. Severe spinal stenosis. L5-S1: Normal endplates. Normal disc height, hydration and morphology. Normal bilateral facet joints. Normal central canal and bilateral lateral recesses. Normal bilateral intervertebral neural foramina.There is bilateral ligamentum flavum thickening. Posterior disc bulge. Normal visualized sacral ala. Normal visualized paraspinous soft tissue structures. ___ MRI/Spine Lumbar (Routine) IMPRESSION: Multilevel degenerative changes, as described above. L4-5: Grade 1 anterolisthesis of L4 on L5. Distance measures 5.4 mm. There is bilateral facet arthropathy. Posterior disc bulge. Bilateral neural foraminal stenosis. Severe spinal stenosis. Electronically Signed: Richy Redding MD at 17:59 EDT Reading Location ID and State: [facility] / [place] , Service support , CC: Dr. Estuardo Jimenez DO Supervisor Beater Room: Signed Estuardo Jimenez DO Work Phone: Start: 09-06-2021 End: 09-06-2021 Re-Evaluation - PT (1) Comments: See Note; NOTES: [facility] [address] [place] [address]. [address] [place] [address] / [employer] / MEDICARE RECERTIFICATION PHYSICAL THERAPY MR#: [id number] Acct: [id number] Name: DARRIUS PADRON Rep #: [id number] : 1965 56 From: Vandana Narvaez DPT, OCS, CSCS Referring Dr.: Dr. Estuardo Jimenez DO Status:REG RCR Insurance: [employer]ANCE Dr. Estuardo Jimenez, DO, It has been my pleasure to treat DARRIUS PADRON over the last 7 visits for Lumbar radiculopathy. Please see the progress note below for an update on the physical therapy plan of care! Subjective: It skilling me this morning. I need to do exercises more. I skipped ex on purpose yesterday as an experiment. Much worse without exercise. painful coming in this am 6/10 walking and bending and 6.2. Objective/Function: Pain with PPU and eis but improved motion with repetitive. Very painful central LB. Walking hunched FW with FW shift. This improves slightly with ext mobs, not at all with press ups and a bit with prone prop with MH. Pt frustrated with pain but realizing he can manage it a little bit. Recommend MRI to ensure treatment and appropriate next step. Plan Plan: Pt to schedule with doctor for next medical step(MRI). Will hold chart one month and patient to call after MRI for more therapy if needed. Balance/Gait/Functional tests - Balance/Special Test Scores Oswestry Low Back Score: 12 Goals Goal 1:: Sleep without waking due to pain Goal Time Frame: 2-4 Weeks Goal Progress: not consistently Goal 2:: Patient have full LB AROM without pain or hesitation Goal Time Frame: 2-4 Weeks Goal Progress: Not Progressing Goal 3:: patient feel back to 95% better with no pain at rest. Goal Time Frame: 2-4 Weeks Goal Progress: 50% Goal 4:: I appropr HEP to manage condition Goal Time Frame: 2-4 Weeks Goal Progress: Goal Met Anticipated Interventions Patient/Client Instruction: Educate patient on: Condition, Plan of Care For the Purpose of:: To decrease pain, To increase ROM, To improve muscle performance and motor function, To improve ability of physical actions for home/community/work/leisure Therapeutic Exercise to Include: Strength training, Passive ROM, Active ROM, Dynamic Lumbar Stabilization, Alexandra Exercises For the Purpose of:: To decrease pain, To increase ROM, To improve muscle performance and motor function, To improve ability of physical actions for home/community/work/leisure, To improve gait and locomotor functions Manual Therapy Techniques to Include: Mobilization, Manipulation, Passive ROM For the Purpose of:: To increase ROM TENS: Yes For the Purpose of:: To decrease pain, To increase ROM Please do not hesitate to contact me at [phone] by phone or if you have questions or concerns regarding this new plan of care! Sincerely, Vandana Narvaez DPT, OCS, CSCS <Electronically signed by Vandana Narvaez DPT, OCS, CSCS> 09/06/21 0900 CC: Dr. Estuardo Jimenez DO EBG Signed For Medicare only, by signing this I certify the plan of care. Physicians Signature Date Estuardo Jimenez DO Work Phone: Start: 08-17-2021 End: 08-17-2021 Inital Evaluation (1) - PT Comments: See Note; NOTES: [facility] [address] [place] [address]. [address] [place] [address] / REHABILITATION SERVICES INITIAL EVALUATION MR#: [id number] Acct: [id number] Name: DARRIUS PADRON Rep #: [id number] : 1965 56 From: Vandana Narvaez DPT, CHRISTINA, CSCS Referring Dr.: Dr. Estuardo Jimenez DO Status: REG R CR Insurance: [employer]URANCE Patient's Visit Information DARRIUS PADRON is a 56 year old M referred to Physical Therapy by Dr. Estuardo Jimenez DO with a diagnosis of Lumbar radiculopathy. Date of Evaluation: 08/17/21 Physical Therapist: Vandana Narvaez DPT, OCS, CSCS - Visit Plan Frequency: 3x /Week Duration: 2-4 Weeks Plan: 3x/week for 2-4 weeks for: 1. alexandra ext bias ex and mobs as needed, LB ROM. 2. Postural correction, core strength. 3. rollout and stretch B quads. 4. STM/TENS if needed for pain. - Subjective Has pain from butt cheeks down and thinks it is from Covid. Constant straining feeling. It keeps him up at night and he needs to keep moving. Gets muscle spasms at base of low back. Pain is a sensation, not a pain and it wears him out. Had covid in April and started in May. It started in L forearm felt like hit funny bone constantly. Hand surgeon told him that his NCT would call it neuropathy as he is a diabetic. Needs a back MRI but needs to have PT first. No numbness or tingling in legs. Leggs feel weak. Steps are harder than they used to be. He has knee OA and needs replacements. Fell a few weeks ago and broke ribs slipping on ice and got muscle relaxer. Pt goal is improvement or MRI. Doing everything he needs to do at home, just painful, Worse walking and doing more. - Pain LB Pain Intensity (Out of 10): Unrated Pain Intensity Range: 0, 5, Unrated - Objective Walks slightly hunched over but I. Trasnfers I, sits with flat lordosis and tend to hold weight off hips with UE. Bed transfer I. Extension L./S max limited and increases tightness. Felxion and SB are normal. Quads max tight, HS OK. Reflexes 2/3 patella and achilles B. Sensation WNl to gross light touch B LE. Strength LE 4+/5 without myotomal abnormalities. repeated ext increases ext motion immediately and is painful during but more focal after. - Balance/Special Test Scores Oswestry Low Back Score: 12 - Goals Goal 1:: Sleep without waking due to pain Goal Time Frame: 2-4 Weeks Goal 2:: Patient have full LB AROM without pain or hesitation Goal Time Frame: 2-4 Weeks Goal 3:: patient feel back to 95% better with no pain at rest. Goal Time Frame: 2-4 Weeks Goal 4:: I appropr HEP to manage condition Goal Time Frame: 2-4 Weeks - Rehabilitation Potential Physical Therapy Diagnosis: LB radiculopathy causing pain and dysfunction Rehabilitation Potential: Fair - Anticipated Interventions Patient/Client Instruction: Educate patient on: Condition, Plan of Care For the Purpose of:: To decrease pain, To increase ROM, To improve muscle performance and motor function, To improve ability of physical actions for home/community/work/leisure Therapeutic Exercise to Include: Strength training, Passive ROM, Active ROM, Dynamic Lumbar Stabilization, Alexandra Exercises For the Purpose of:: To decrease pain, To increase ROM, To improve muscle performance and motor function, To improve ability of physical actions for home/community/work/leisure, To improve gait and locomotor functions Manual Therapy Techniques to Include: Mobilization, Manipulation, Passive ROM For the Purpose of:: To increase ROM TENS: Yes For the Purpose of:: To decrease pain, To increase ROM Thank you for the opportunity to evaluate your patient. For Medicare and Medicare HMO plans, please review the plan of care and approve it. It will need to be FAXED BACK to us at [phone] for Medicare purposes. For Medicare only, by signing this I certify the plan of care. Please let me know if there are questions or concerns regarding this plan of care. Physician Signature: Date: <Electronically signed by Vandana Narvaez DPT, OCS, CSCS> 08/17/21 1246 CC: Dr. Estuardo Jimenez DO EBG Signed Estuardo Jimenez DO Work Phone: Start: 07-26-2021 End: 07-26-2021 Ribs Uni Min 3V w/PA Chest Comments: See Note; NOTES: [facility] [address] [place] [address] Ribs Uni Min 3V w/PA Chest MR#: [id number] Acct: [id number] Name: ADRIANJAYMEMyrtleDARRIUS Rep #: [id number] : 1965 M 56 From: Christiano hall MD PCP: Dr. Estuardo Jimenez DO Status: DEP AMB Study: Ribs Uni Min 3V w/PA Chest Date of Exam: 07/26 Exam# [id number] Ordering Dr: Julio Padron MD STUDY: X-RAY - UNILATERAL RIBS ( RIGHT ) WITH CHEST REASON FOR EXAM: Male, 56 years old. RIB PAIN -- STAT TECHNIQUE - RIBS: 3 view(s) of the ribs. TECHNIQUE - CHEST: Single PA view of the chest. COMPARISON: Comparison is made with prior chest radiograph dated 04/22/2021 and 07/24/2021. ___ FINDINGS - RIBS: Normal visualized ribs without a demonstrated fracture. FINDINGS - CHEST: Mild increased markings at the left lung base. This may represent scarring. There is no demonstrated pleural abnormality. Normal size heart. Normal mediastinum and claude. Normal visualized pulmonary arteries. Normal visualized aortic arch and descending thoracic aorta. Normal visualized thoracic spine. Normal visualized ribs, clavicles, and shoulders. There is no demonstrated abnormality of the visualized soft tissue structures of the upper abdomen. ___ RAD/Ribs Uni Min 3V w/PA Chest IMPRESSION: RIBS: Normal x-ray examination of the ribs. CHEST: Stable examination. Electronically Signed: Christiano Montoya MD at 11:02 EST , CC: Dr. Julio Padron MD; Dr. Estuardo Jimenez DO Supervisor Beater Room: Signed Julio Padron MD Work Phone: Start: 07-26-2021 X-ray of chest posteroanterior view Dr. Estuardo Jimenez Work Phone: Start: 07-24-2021 End: 07-24-2021 Ribs Uni Min 3V w/PA Chest Comments: See Note; NOTES: [facility] [address] [place] [address] Ribs Uni Min 3V w/PA Chest MR#: [id number] Acct: [id number] Name: DARRIUS PADRON Rep #: [id number] : 1965 M 56 From: Christiano hall MD PCP: Dr. Estuardo Jimenez DO Status: DEP AMB Study: Ribs Uni Min 3V w/PA Chest Date of Exam: 07/24 Exam# [id number] Ordering Dr: Estuardo Jimenez DO STUDY: X-RAY - UNILATERAL RIBS ( LEFT ) WITH CHEST REASON FOR EXAM: Male, 56 years old. FALL ON ICE -- STAT TECHNIQUE - RIBS: 4 view(s) of the ribs. TECHNIQUE - CHEST: Single PA view of the chest. COMPARISON: None. ___ FINDINGS - RIBS: There is a nondisplaced fracture of the left seventh rib posteriorly. FINDINGS - CHEST: No prior study is available for comparison. Mild increased markings at the left lung base suggestive of atelectasis. There is no demonstrated pleural abnormality. Normal size heart. Normal mediastinum and claude. Normal visualized pulmonary arteries. Normal visualized aortic arch and descending thoracic aorta. Normal visualized thoracic spine. Nondisplaced fracture of the left posterior seventh rib. There is no demonstrated abnormality of the visualized soft tissue structures of the upper abdomen. ___ RAD/Ribs Uni Min 3V w/PA Chest IMPRESSION: RIBS: Nondisplaced left posterior seventh rib. CHEST: Mild increased markings at the left lung base suggestive of atelectasis. Electronically Signed: Christiano Montoya MD at 14:04 EST , CC: Dr. Estuardo Jimenez DO Supervisor Beater Room: Signed Estuardo Jimenez DO Work Phone: Start: 07-24-2021 X-ray of chest posteroanterior view Dr. Estuardo Jimenez Work Phone: Start: 07-12-2021 End: 01-26-2022 NCS and/or EMG Patient Comments: See Note; NOTES: [facility] Pulmonary Services/Neurology [address] [place] [address] MR#: [id number] Acct: [id number] Name: DARRIUS PADRON Rep #: [id number] : 1965 56 From: Evgeny Osullivan MD Referring Dr: Estuardo Jimenez DO Status: REG CLI Location: PSN Date: 07/12/21 Sex: M C NCS and/or EMG Patient Report Ordering Doctor: Estuardo Jimenez DATE OF SERVICE: 07/12/21 Darrius presents for electrodiagnostic testing of the lower limbs. He reports a 3-month history of low back pain with radiation into the lower limbs and a burning sensation. Electrodiagnostic findings left peroneal motor nerve demonstrates normal distal latency with reduced amplitude and reduced conduction velocity. Right peroneal motor nerve demonstrates normal distal latency, amplitude and reduced conduction velocity. Decreased right tibial motor amplitude and conduction velocity. Decreased left tibial amplitude. Absent sensory responses in both the sural and superficial peroneal distribution. Prolonged tibial and peroneal F-wave. On needle EMG, all muscles tested in the lower limbs showed no evidence of denervation with normal motor unit action potentials. Electrodiagnostic Impression: This is an abnormal study. 1. Electrodiagnostic findings demonstrate peripheral polyneuropathy with motor and sensory nerve involvement. This may be secondary to longstanding history of diabetes 2. No electrodiagnostic evidence is noted for lumbosacral radiculopathy. 07/12/21 1318 <Electronically signed by Evgeny Osullivan MD> Date ___ Evgeny Osullivan MD CC: Dr. Evgeny Osullivan MD; Dr. Estuardo Jimenez DO Date Dictated: 07/12/21 125 Date Transcribed: 07/12/211258 Supervisor Beater Room: AZUL Jimenez DO Work Phone: Start: 05-18-2021 End: 05-18-2021 Cardiac Cath Diagnostic Comments: See Note; NOTES: [facility] Imaging Services [address] [place] [address] Cardiac Cath Diagnostic MR#: [id number] Acct: [id number] Name: DARRIUS PADRON Rep #: [id number] : 1965 56 From: To Randall MD PCP: Dr. Estuardo Jimenez, DO Status[place] [facility] [place] Name: DARRIUS PADRON Study Date: 05/18/2021 Performing: To Randall MD Ht: 72.83 inches 185 cm : 1965 Wt: 189.6 lbs 86 kg Age: 56 Gender: male BSA: 2.1 PROCEDURE(S) PERFORMED ZP74-CWC/COR/LV CLINICAL PROFILE AND INDICATIONS Indications: Suspected CAD Heart Failure: None Stress/Imaging Date: 05/12/21 CAD Presentations: Symptom unlikely to be ischemic. CONCLUSIONS Diffuse coronary artery disease with mild to moderate calcification but no high-grade stenosis noted in a significant vascular territory except for small obtuse marginal branch. RECOMMENDATIONS Risk factor modification Medical therapy DESCRIPTION OF PROCEDURE The patient arrived to the procedure lab. The risks and benefits of the procedure as well as a full description of our services here and current unavailability of surgical backup were fully explained to the patient and/or their significant other prior to the catheterization. The Timeout was completed, verifying the correct patient and procedure. The patient's procedural site was prepped and draped in the usual fashion. Local anesthetic was given subcutaneously to right radial region with Lidocaine 2%. Using a modified Seldinger technique, arterial access was obtained via the right radial artery, a 6Fr sheath was inserted. Left Coronary Artery selective angiography was performed in multiple views using a 5 Fr. 4.0 [place] catheter. Right Coronary Artery selective angiography was then performed in multiple views using a 5 Fr. 4.0 [place] catheter. Left Ventriculography was performed in FONG projection using a 5 Fr. Pigtail catheter. LV to AO pullback pressures were then recorded.The arterial sheath was pulled and a TR Band was applied for hemostasis. Sheath flushed prior to removal. 10cc air. CORONARY ANGIOGRAPHY DOMINANCE: Left Dominant LEFT HEART ASSESSMENT Left Ventricular Ejection Fraction: by LV Gram 60 % Normal Left Ventricular systolic function LEFT MAIN: Mild calcification, No significant disease noted LEFT ANTERIOR DESCENDING ARTERY: Moderate calcification, The proximal left anterior descending artery has mild luminal irregularities and the distal left anterior descending artery has moderate diffuse disease no greater than 50% CIRCUMFLEX ARTERY: Left circumflex artery is dominant with the first small obtuse marginal branch with 80% mid stenosis, second obtuse marginal branch with moderate 50% diffuse disease, third obtuse marginal branch with mild 30% diffuse disease, AV groove branch with mild luminal irregularities and posterior lateral vessel with proximal 50% stenosis RIGHT CORONARY ARTERY: Nondominant but medium size vessel with mild diffuse disease of 30%. COMPLICATIONS No Complications PROCEDURE MEDICATIONS Fentanyl 50 mcg IV Versed 1 mg IV Versed 1 mg IV Oxygen: 2 L/min via nasal cannula SUMMARY OF HEMODYNAMIC DATA Time AIR REST ECG 07:11:45 ECG 07:49:14 AO 102/58 (77) SA 08:08:58 LV 117/3, 9 08:14:52 LV 126/8, 12 08:14:58 LV 118/11, 14 08:15:46 LVp 110/10, 13 08:15:49 AOp 114/66 (87) 08:15:54 ECG 08:26:14 Signed By To Randall MD On 05/18/2021 8:44:43 AM ___ To Randall MD 05/18/21 0844 Date ___ To Randall MD Cosigner Signature: Date ___ (if indicated) CC: Dr. To Randall MD; Dr. Estuardo Jimenez DO Date Dictated: 05/18/21 0758 Date Transcribed: 05/18/21817 Supervisor Beater Room: [place] Signed Julio Padron MD Work Phone: Start: 05-10-2021 End: 05-10-2021 Stress Report Comments: See Note; NOTES: [facility] Cardiovascular Services [address] [place] [address] MR#: [id number] Acct: [id number] Name: DARRIUS PADRON Rep #: [id number] : 1965 56 From: To Randall MD Primary Care: Dr. Estuardo Jimenez DO Status: R EG CLI Referring Dr: To Randall MD Sex: M C Stress Test Report Left chest discomfortExercise stress test. 56-year-old male with a history of chest pain pain Stress protocol: Resting EKG demonstrates normal sinus rhythm with a rate of 70 bpm normal intervals are noted. The patient exercised according to regular Kamran protocol for total duration of 7 minutes and 45 seconds. The maximum heart rate attained was 181 bpm which was 110% of max impact at heart rate the maximum workload was 10.1 metabolic equivalents. The patient maintained sinus rhythm throughout the recording. At peak exercise there was approximately [address] depression noted in lead V3 through V6. The above is suggestive of ischemia. At 50 seconds into recovery upsloping ST changes were noted which suggested normalization. During recovery there were no other EKG changes noted. The resting blood pressure was 148/82 with a peak blood pressure of 202/84 mmHg suggesting a hypertensive response to exercise. The patient complained of at peak exercise which persisted into recovery and eventually dissipated. Conclusion: Exercise stress test with EKG changes suggestive of ischemia at a high workload. Hypertensive response to exercise. Chest discomfort noted of unclear significance but angina cannot be excluded. 05/10/211804 <Electronically signed by To Randall MD> Date ___ To Randall MD CC: Dr. To Randall MD; Dr. Estuardo Jimenez DO Date Dictated: 05/10/211800 Date Transcribed: 05/10/211800 Supervisor Beater Room: [place] Signed Estuardo Jimenez DO Work Phone: Start: 05-05-2021 End: 05-05-2021 Cardiology Visit Report Comments: See Note; NOTES: [facility] [address] [place] [address] OFFICE VISIT Date of Service: 05/05/21 MR#: [id number] Acct: [id number] Name: DARRIUS PADRON Rep #: [id number] : 1965 Provider: Dr. To Randall MD Age/Sex: 56/M Location: [facility] [place] Status: Signed HPI HPI History of Present Illness Details: Pleasant 56-year-old man with a history of premature atherosclerotic cardiovascular disease with a history of hypertension, type 1 diabetes mellitus, Schatzki's ring, hyperlipidemia. He says that he had been having chest discomfort which he describes as a strain across his chest which had been going on for a few months. He did unfortunately contract COVID-19 at the beginning of April and received a monoclonal antibody on the same day 04/21/2021. He presented to the emergency room on 04/22/2021 with chest discomfort his EKG was noted to be normal troponin was normal, chest x-ray was unremarkable and D-dimer was noted to be normal. You do remember that in January 2020 he exercised according to the Kamran protocol and attained a high metabolic workload of 10.9 metabolic equivalents with no evidence of chest pain and no ischemia was noted. A calcium score in 2012 demonstrated an elevated calcium score 493 which was over 75% of the expected range. More recently he has had this chest discomfort which he says feels like a strain and waxes and wanes. He has not had any dizziness or diaphoresis near syncope or syncope with it. He has been very concerned about this discomfort due to his high calcium score as well as his diabetes mellitus. He thinks that it has been getting worse. His physical exam today is unremarkable. Intake Vital Signs 05/05/21 08:54 Height 6 ft 1 in Weight: 189 lb BMI 24.9 BP 146/77 H Respiration 16 Pulse 82 Pulse Oximetry (%) 98 Intake Visit Reasons: chest pain Allergies No Known Allergies Allergy (Verified 05/05/21 08:55) Medications finasteride 1 mg PO DAILY 08/03/19 [History Confirmed 05/05/21] insulin aspart U-100 See Protocol SQ DAILY 08/03/19 [History Confirmed 05/05/21] insulin glargine 10 units SQ ACHS 08/03/19 [History Confirmed 05/05/21] levothyroxine 175 mcg PO DAILY 08/03/19 [History Confirmed 05/05/21] lisinopril 2.5 mg PO DAILY 08/03/19 [History Confirmed 05/05/21] omeprazole 20 mg PO DAILY 08/03/19 [History Confirmed 05/05/21] rosuvastatin 10 mg PO QODAY 08/03/19 [History Confirmed 05/05/21] sildenafil 100 mg PO PRN PRN 08/03/19 [History Confirmed 05/05/21] insulin glargine [Lantus U-100 Insulin] 16 unit SUBCUT DAILY 04/22/21 [History Confirmed 05/05/21] [facility] Medical History BPH (benign prostatic hyperplasia) Coronary artery disease Elevated coronary artery calcium score Essential hypertension Food impaction of esophagus Hypercholesterolemia Schatzki's ring Surgical History History of esophagogastroduodenoscopy (EGD) (08/2019) Social History household members: spouse Smoking Status: Never smoker substance use type: does not use ROS Const Const: Negative for fatigue, weakness, headache(s), frequent falls, difficulty sleeping or excessive sweating Eyes Eyes: Negative for loss of peripheral vision, transient loss of vision, blurry vision, double vision or tunnel vision ENT ENT: Negative for headache(s), dizziness, Nosebleed/epistaxis or balance problems Cardio Chest Pain: Yes Frequency: other Character: dull, tightness and other (strain) Location: left chest (5/10 on pain scale) Exacerbation: other (constant ) Palpitations: No Edema: None Muscle aches with walking: None Resp Respiratory: Negative for SOB with activity, SOB at rest, SOB orthopnea SOB lying down, Cough or paroxysmal nocturnal dyspnea GI GI: Negative nausea, vomiting, heartburn or black,tarry stools : Negative for hematuria Musc Musc: Negative for muscle aches/ myalgia, muscle weakness, joint pain or balance problems Skin Skin: Negative non-healing lesions, rash or unusual bruising Neuro Neuro: Negative for dizziness, lightheadedness, near syncope, syncope, orthostatic symptoms, frequent falls, headache(s), weakness, blurry vision, double vision or lack of coordination Benjie Hematologic/Lymphatic: Negative for easy bleeding or easy bruising Endo Endo: Negative for fatigue, excessive sweating or increased thirst/drinking Psych Psych: Negative for anxiety or depression Allergy Allergy/Immunology: Negative for hives and Negative for rash Cardiology Exam Const Appearance: cooperative, healthy appearing, no acute distress, well developed and well groomed Nutritional Appearance: average body habitus and well nourished Orientation: alert, awake and oriented x3 Head Head: normal to inspection, normocephalic and atraumatic Ears: hearing grossly normal bilaterally and external ears normal Nose: external nose normal, nares normal, nasal mucous membranes and turbinates normal, septum normal and no nasal discharge Face and Sinus: face symmetric Mouth: oral mucosae normal, tongue normal, oropharynx normal and moist mucous membranes Teeth and gingiva: dentition normal Throat: posterior oropharynx normal, tonsils normal and uvula midline Eyes General: appearance normal, both eyes and all related structures Eyelids: eyelids normal Conjunctivae: conjunctivae normal Pupils: PERRL, normal by confrontation and accommodation normal EOM: EOM intact bilaterally Neck Neck: normal visual inspection, trachea midline and no JVD JVD: +5 Carotids: normal carotid upstroke and bounding pulses Chest Chest inspection: normal inspection of the chest, symmetric chest movement and normal respiratory effort Auscultation: Bilateral: Clear to Auscultation Cardio Palpation: normal PMI Rate: regular rate Rhythm: regular rhythm Heart sounds: S1 normal, S2 normal and normal, physiologic split S2; Negative rub, gallop or murmur GI GI: normal to inspection, soft, no hepatosplenomegaly and bowel sounds present Neuro General: patient alert, patient awake, patient oriented x3, gait normal, moves all extremities and no focal sensory deficit Skin Skin: no rashes or lesions noted Extremities Pulses: Normal: Right Femoral Pulse, Left Femoral Pulse, Right Dorsalis Pedis Pulse, Left Dorsalis Pedis Pulse, Right Posterior Tibial Pulse, Left Posterior Tibial Pulse, Right Radial Pulse and Left Radial Pulse Lower Extremity Edema: None: Bilateral Musculoskel Musculoskeletal: No joint tenderness Psych Psychological: normal affect Supplemental Info Supplemental Information Labs: LDL Cholesterol 62 mg/dL (0-130) HDL Cholesterol 73 mg/dL (40-) Triglycerides 59 mg/dL (-199) VLDL Cholesterol 12 mg/dL (5-40) Diagnostics: Electrocardiogram Stress Test NM Stress Test Chest X-Ray Pulmonary: No Data to Display Assessment and Plan Assessment and Plan (1) Atherosclerotic heart disease [place] coronary artery w/angina pectoris: Status: Acute Orders: Orders: Left Heart Cath/COR/LV Percut Today Basic Metabolic Profile (BMP) Today CRP, High Sensitivity Cardiac Today CBC W/Diff, Automated Today COVID 19, PCR [facility](RT COLLECT) Today Plan - Dr. To Randall MD: He does have evidence of atherosclerotic cardiovascular disease with more recent chest discomfort. The above though suggestive is not diagnostic of angina. He has had a stress test a year ago which was unremarkable but he says that this symptomatology is rather different. I would recommend on the basis of the above that we strongly consider with his risk factors a cardiac catheterization to assess his coronary anatomy and to guide therapy. Depending on the findings further recommendations will be made. He will stay on the current medications at this time. (2) Elevated coronary artery calcium score: Status: Chronic Orders: Orders: Left Heart Cath/COR/LV Percut Today Basic Metabolic Profile (BMP) Today CRP, High Sensitivity Cardiac Today CBC W/Diff, Automated Today COVID 19, PCR [facility](RT COLLECT) Today Plan - Dr. To Randall MD: He does have evidence of an elevated calcium score and will continue with aggressive risk factor modification with statin and aspirin. His most recent lipid profile demonstrated an HDL of 73 and an LDL of 62. (3) Essential hypertension: Status: Chronic Orders: Orders: COVID 19, PCR [facility](RT COLLECT) Today Plan - Dr. To Randall MD: He does have a history of heart peers to be under fairly good control with 2.5 mg of lisinopril, I would make any change at this time. (4) Chest pain: Status: Acute Orders: Orders: COVID 19, PCR [facility](RT COLLECT) Today Plan - Dr. To Randall MD: He does have chest pain which is somewhat concerning for angina and I would recommend that we evaluate the above with a cardiac catheterization. The risk benefits alternatives have been explained to him he understands and agrees to proceed. 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) Coding Level of Care Code Off vis,new,level 4 Diagnoses Atherosclerotic heart disease [place] coronary artery w/angina pectoris I25.119 Elevated coronary artery calcium score R93.1 Essential hypertension I10 Chest pain R07.9 Hypercholesterolemia E78.00 Coding Level of Care Code Off vis,new,level 4 Diagnoses Atherosclerotic heart disease [place] coronary artery w/angina pectoris I25.119 Elevated coronary artery calcium score R93.1 Essential hypertension I10 Chest pain R07.9 Hypercholesterolemia E78.00 05/05/21 1502 <Electronically signed by To Randall MD> Date ___ To Randall MD Cosigner Signature: Date ___ (if applicable) CC: Dr. Estuardo Jimenez, DO Estuardo Jimenez DO Work Phone: Start: 04-22-2021 End: 04-22-2021 Chest 1 View (Portable) Comments: See Note; NOTES: [facility] Imaging Services [address] [place] [id number] Chest 1 View (Portable) MR#: [id number] Acct: [id number] Name: DARRIUS PADRON Rep #: [id number] : 1965 M Julian From: Gustavo Paulino PCP: Dr. Estuardo Jimenez, DO Status: REG ER Study: Chest 1 View (Portable) Date of Exam: 04/22/21 Exam# [id number] Ordering Dr: Gray Phillip MD STUDY: X-RAY CHEST REASON FOR EXAM: Male, 55 years old. Pleuritic chest pain, history of Covid TECHNIQUE: Frontal portable view of the chest COMPARISON: None. ___ FINDINGS: The lungs are clear and expanded. There is no demonstrated pleural abnormality. Normal size heart. Normal mediastinum and claude. Normal visualized pulmonary arteries. Normal visualized aortic arch and descending thoracic aorta. Normal visualized thoracic spine. Normal visualized ribs, clavicles, and shoulders. There is no demonstrated abnormality of the visualized soft tissue structures of the upper abdomen. ___ RAD/Chest 1 View (Portable) IMPRESSION: Normal x-ray examination of the chest. Electronically Signed: Gustavo Velez MD at 19:58 EDT Tel , Service support , CC: Dr. Estuardo Jimenez DO; Dr. Gray Phillip MD Supervisor Beater Room: Signed Estuardo Jimenez DO Work Phone: Start: 04-22-2021 End: 04-22-2021 Emergency Department Summary Comments: See Note; NOTES: [facility] Medical Records Department [address] [place] [address] Emergency Department Summary 04/22/21 MR#: [id number] Acct: [id number] Name: DARRIUS PADRON Rep #: [id number] : 1965 55 From: Gray Phillip MD PCP: Dr. Estuardo Jimenez DO Status:REG ER Location: ED HPI History of Present Illness Chief Complaint: Chest Pain Detail of Chief Complaint: Midsternal with pleuritic component after monoclonal therapy Informant: patient and spouse/S.O. Onset/Context/Timing Onset: Today Activity at onset: sudden and rest Timing: Continuous and Waxes and wanes Quality: Positive for Aching Location: Substernal Current Severity: Mild Maximum Severity: Moderate Worsened By: Breathing and Coughing; Not Worsened By Exertion, Movement of Arm, Movement of Torso, Eating and Palpation Relieved By: Nothing Associated Symptoms: Positive for Dyspnea, Cough and Fever; Negative for Nausea, Vomiting, Diaphoresis, Lightheadedness, Acid Reflux and Palpitations Narrative Narrative: Patient is a middle-age male with history of type 1 diabetes, hypertension, hypercholesterolemia who was diagnosed with Covid. Symptoms started yesterday. He has upper respiratory symptoms. He denies loss of taste or smell. He denies history of VTE. Denies leg pain, swelling discoloration. Symptoms started after monoclonal therapy. There is a pleuritic component. He does have history of hypothyroidism and GERD. There is history of Schatzki ring. He did have a stress test performed recently by Dr. Randall and was unremarkable with good workload. Prior Similar Symptoms: No CVD Risk Factors: Positive for Hypertension, Diabetes and Hypercholesterolemia; Negative for Smoking PE Risk Factors: Positive for - (Diagnosis with Covid); Negative for Recent Travel/Surgery, Recent Immobilization, Prior DVT or PE, Cancer and OCP + Smoking + >/=35 TAD Risk Factors: Positive for Hypertension; Negative for Marfan's Syndrome and Family History PFSH [facility] Medical History (Updated 04/22/21 @ 22:[address] Gray Phillip MD) Coronary artery disease Diabetes Schatzki's ring Home Medications finasteride 1 mg PO DAILY 08/03/19 [History Last Taken 1 Day Ago 04/21/21] insulin aspart U-100 See Protocol SQ DAILY 08/03/19 [History Last Taken 1 Day Ago 04/21/21] insulin glargine 10 units SQ ACHS 08/03/19 [History Last Taken 1 Day Ago 04/21/21] levothyroxine 175 mcg PO DAILY 08/03/19 [History Last Taken 1 Day Ago 04/21/21] lisinopril 2.5 mg PO DAILY 08/03/19 [History Last Taken 1 Day Ago 04/21/21] omeprazole 20 mg PO DAILY 08/03/19 [History Last Taken 1 Day Ago 04/21/21] rosuvastatin 10 mg PO QODAY 08/03/19 [History Last Taken 1 Day Ago 04/21/21] sildenafil 100 mg PO PRN PRN 08/03/19 [History Last Taken 1 Day Ago 04/21/21] insulin glargine [Lantus U-100 Insulin] 16 unit SUBCUT DAILY 04/22/21 [History Last Taken 1 Day Ago 04/21/21] Allergy/AdvReac Type Severity Reaction Status Date / Time No Known Allergies Allergy Verified 08/25/19 07:33 Surgical History no surgical history no surgical history Social History (Updated 04/22/21 @ 19:[address] Gray Phillip MD) household members: spouse Smoking Status: Never smoker substance use type: does not use ROS ROS ED Constitutional Constitutional ED: Reports fever(s) and sweats; Denies chills, subjective or weight loss Eyes Eyes: Reports none ENT ENT ED: Reports rhinorrhea and sore throat; Denies ear pain Cardiovascular Cardiovascular: Reports as per HPI and chest pain; Denies orthopnea or paroxysmal nocturnal dyspnea Respiratory/Chest Respiratory/Chest: Reports cough, dyspnea and dyspnea on exertion; Denies orthopnea, paroxysmal nocturnal dyspnea or sputum Gastrointestinal Gastrointestinal: Reports nausea; Denies abdominal pain, constipation, diarrhea or vomiting Genitourinary Genitourinary ED: Denies dysuria, hematuria or urinary frequency Musculoskeletal Musculoskeletal: Reports myalgias; Denies back pain or neck pain Integumentary Denies rash Neurologic Neurologic: Reports headache(s); Denies weakness Endocrine Endocrinology: Denies polydipsia, polyphagia or polyuria Hematologic/Lymphatic Hematologic/Lymphatic: Denies easy bleeding or easy bruising EXAM Physical Exam Const Vital Signs: 04/22/21 19:19 04/22/21 19:22 04/22/21 19:23 Temperature 99.4 F H Temperature Source Temporal Pulse Rate 87 Respiratory Rate 19 H Respiratory Effort Normal Respiratory Pattern Normal Blood Pressure 175/98 H Blood Pressure Mean 123 Pulse Ox 99 Oxygen Delivery Method Room Air 04/22/21 21:28 Temperature Temperature Source Pulse Rate 83 Respiratory Rate 22 H Respiratory Effort Respiratory Pattern Blood Pressure 149/90 H Blood Pressure Mean 109 Pulse Ox 97 Oxygen Delivery Method Room Air Positive well nourished and well developed General Appearance ED: well developed and NAD; Negative for pallor HEENT Reports moist mucous membranes normocephalic and atraumatic Eyes PERRL and EOMs intact bilaterally General Eye ED: Negative for pale conjunctiva or scleral icterus Neck no lymphadenopathy, supple and no JVD Resp normal respiratory effort and No clear to auscultation bilaterally Effort and Inspection: respiratory distress Auscultation: rales right base Cardio regular rate, regular rhythm, S1 normal heart sound, S2 normal heart sound and no murmurs GI normal to inspection, nondistended, normoactive bowel sounds, soft to palpation and non-tender Back/Spine no CVA tenderness Extremity normal to inspection General Extremety ED: Negative for edema or tenderness General Extremity: Negative for edema Neuro oriented x3, CN's II-XII intact bilaterally and no sensory deficits noted Sensorium / Orientation: awake and alert Psych mental status grossly normal Skin no rashes or lesions noted and no wounds General Skin Exam: Negative for jaundice or pallor Heart Score History: Slightly/Non-Suspicious ECG: Normal Age: >45 - <65 years Risk Factors: >/= 3 Risk Factors or History of CAD Score: 3 MDM MDM MDM Narrative Medical decision making narrative: Patient presents with atypical chest pain. This may represent cardiac versus noncardiac. Noncardiac causes would include esophagitis, peptic ulcer disease, Covid pneumonia, pleurisy, pulmonary embolus. Lab Data Attestation: I reviewed the patient's lab results. Lab results narrative: CBC and H H unremarkable. D-dimer is normal. Electrolyte panel reveals a BUN of 21 and glucose of 117 which are mildly elevated. Troponin is normal at 10 however it is not less than 7 therefore 2-hour needs to be ordered. 2-hour troponin is 8. Therefore patient can be discharged home. He and his were informed of results. The discomfort may be due to Covid infection or the monoclonal infusion. Labs: Laboratory Results - last 24 hr 04/22/21 04/22/21 04/22/21 19:25 19:25 19:25 WBC 4.8 RBC 5.04 Hgb 15.1 Hct 44.5 MCV 88.3 MCH 30.0 MCHC 33.9 RDW Std Deviation 39.2 RDW Coeff of Elier 12.0 Plt Count 249 MPV 9.6 Immature Gran % (Auto) 0.200 Neut % (Auto) 58.2 Lymph % (Auto) 22.0 [place] % (Auto) 14.4 H Eos % (Auto) 4.8 Baso % (Auto) 0.4 Absolute Neuts (auto) 2.8 Absolute Lymphs (auto) 1.05 Nucleated RBC % 0 D-Dimer Quant (PE/DVT) 0.42 Sodium 135 L Potassium 3.9 Chloride 103 Carbon Dioxide 28.0 Anion Gap 4 L BUN 21 H Creatinine 1.16 Estim Creat Clear Calc 81.32 Est GFR (MDRD) Af Amer 84 Est GFR (MDRD) Non-Af 69 BUN/Creatinine Ratio 18.1 Glucose 117 H Calcium 9.4 Troponin I High Sens 10 04/22/21 21:22 WBC RBC Hgb Hct MCV MCH MCHC RDW Std Deviation RDW Coeff of Elier Plt Count MPV Immature Gran % (Auto) Neut % (Auto) Lymph % (Auto) [place] % (Auto) Eos % (Auto) Baso % (Auto) Absolute Neuts (auto) Absolute Lymphs (auto) Nucleated RBC % D-Dimer Quant (PE/DVT) Sodium Potassium Chloride Carbon Dioxide Anion Gap BUN Creatinine Estim Creat Clear Calc Est GFR (MDRD) Af Amer Est GFR (MDRD) Non-Af BUN/Creatinine Ratio Glucose Calcium Troponin I High Sens 8 Radiography Chest X-Ray - ED: 1 View, Read by ED Physician, Normal, Heart, Lungs, Mediastinum, Bony Structures and No Acute Disease Diagnostic Testing: Clinical Impression(s) from Imaging Studies Chest X-Ray 04/22/21 19:30 IMPRESSION: Normal x-ray examination of the chest. Electronically Signed: Gustavo Velez MD at 19:58 EDT Tel , Service support , EKG Initial EKG: Attestation: I personally reviewed and interpreted this EKG as follows: Interpretation: Sinus Rhythm ('s sinus rhythm with a ventricular rate 84. There is respiratory variance noted. EKG is otherwise normal. CO interval 202 ms. Cures duration 82 ms. QT duration 3 and 50 ms. [place] is normal.) Discharge Plan Triage Chief Complaint: Chest Pain ED Provider: Gray Phillip Dx/Rx/DC Orders Clinical Impression: Chest pain, COVID-19 virus infection Instructions: Coronavirus Disease 2019 (COVID-19): Caring for Yourself or Others, ED Chest Pain, Noncardiac Prescriptions: No Action levothyroxine 175 MCG tablet 175 mcg PO DAILY RF: 0 sildenafil 100 MG tablet 100 mg PO PRN PRN (Reason: Not Specified) RF: 0 lisinopril 2.5 MG tablet 2.5 mg PO DAILY RF: 0 finasteride 1 MG tablet 1 mg PO DAILY RF: 0 insulin aspart U-100 100 unit/mL (3 mL) insulin pen See Protocol units SQ DAILY RF: 0 rosuvastatin 10 MG tablet 10 mg PO QODAY RF: 0 insulin glargine 100 unit/mL (3 mL) insulin pen 10 units SQ ACHS RF: 0 omeprazole 20 MG tablet,delayed release (DR/EC) 20 mg PO DAILY RF: 0 Lantus U-100 Insulin 100 unit/mL Cartridge 16 unit SUBCUT DAILY RF: 0 Primary Care Provider: Estuardo Jimenez Referrals: Estuardo Jimenez DO [Primary Care Provider] - As Needed Disposition Disposition: Home, Self Care What to do if you have Problems For any increased pain, shortness of breath, bleeding, nausea or vomiting, chest pain, or any unexpected problems, contact your Primary Care Provider. Call [facility] ([phone]) or report to the closest Emergency Room. Call 911 if necessary. 04/22/212212 <Electronically signed by Gray Phillip MD> Cosigner Signature (if applicable): CC: Dr. Estuardo Jimenez DO Signed Estuardo Jimenez DO Work Phone: Start: 04-22-2021 End: 04-25-2021 12 Lead EKG Comments: See Note; NOTES: [facility] Cardiovascular Services [address] [place] [address] 12 Lead EKG 04/22/211927 MR#: [id number] Acct: [id number] Name: DARRIUS PADRON Rep #: [id number] : 1965 55 From: Amrit Tay MD Attending Dr: Status: DEP ER Ordering Dr: Gray Phillip MD Date: 04/22/21 Location: ED Sex: M C Admitted: Test Reason : CP Blood Pressure : / mmHG Vent. Rate : 084 BPM Atrial Rate : 084 BPM P-R Int : 152 ms QRS Dur : 082 ms QT Int : 350 ms P-R-T Axes : 069 061 052 degrees QTc Int : 413 ms Normal sinus rhythm with sinus arrhythmia Normal ECG Confirmed by CLAU REYEZ, AMRIT ([id number]), fashion editor PRISCILLA VALENCIA ([id number]) on 04/25/2021 8:05:16 AM Referred By: Confirmed By:AMRIT TAY MD 04/25/21 0805 Date ___ Amrit Tay MD CC: Dr. Estuardo Jimenez DO; Dr. Gray Phillip MD Signed Estuardo Jimenez DO Work Phone: Start: 04-21-2021 End: 04-21-2021 Virtual Office Visit Comments: See Note; NOTES: [facility] Services [address] [place] [address] OFFICE VISIT Date of Service: 04/21/21 MR#: [id number] Acct: [id number] Patient: DARRIUS PADRON Rep #: [id number] : 1965 Provider: SIDDHARTHA newton Age/Sex: 55/M Location: [facility] Status: Signed Intake Intake Visit Reasons: COVID-19 Allergies No Known Allergies Allergy (Verified 08/25/19 07:33) PFSH Social History Smoking Status: Never smoker HPI HPI Details: Patient was informed that this visit will be billed to patient. This visit was conducted during COVID-19 pandemic. Statement read to the patient: This telehealth visit is being offered during our stay at home measures in response to the pandemic. It is subject to an office visit charge. The patient consents to continue. Symptom onset occurred: 04/21 Positive COVID-19 test occurred: 04/21 COVID vaccine administered: yes on oxygen or needed to titrate up? no The FDA has authorized the emergency use of monoclonal antibody treatment (bamlanivimab/etesevimab or casirivimab/imdevimab) for mild to moderate COVID-19 in adults and pediatric patients with positive results of direct SARS???Cov???2 viral testing ages 12 and older, at least 40 kg, who were not at high risk for progressing to severe COVID-19 and or hospitalization. The significant known and potential risks (allergic reactions or side effects from injection including brief pain, bleeding, bruising of the skin, soreness, swelling, possible infection at the infusion site) and benefits (decrease chance of progression to severe COVID-19) of a monoclonal antibody infusion, and the extent to which such potential risks and benefits are unknown. Patients treated with monoclonal antibody infusion should continue to self-isolate and use infection control measures (such as wear mask, isolate, social distance, avoid sharing personal items, clean and disinfect high touch surfaces, and frequent handwashing) according to the CDC guidelines. The fact sheet for patients, parents and caregivers will be provided prior to the administration of the medication. No drugs are approved by the FDA at this time to treat outpatients with mild or moderate symptoms of COVID-19. The following information was communicated to the patient or caregiver: Monoclonal antibody infusion is not an FDA approved drug. The FDA has authorized the emergency use of monoclonal antibody therapy. The patient had the option to refuse or accept treatment with monoclonal antibody therapy. The patient was informed that the number of people treated with monoclonal antibody therapy at this time is small. The potential benefits and the potential risks of monoclonal antibody therapy are not fully known. Potential benefits of monoclonal antibody include a reduced risk of progressing to severe COVID-19 infection. Potential risks or side effects of monoclonal antibody therapy include allergic reactions, side effects from injection including brief pain, bleeding, bruising of the skin, soreness, swelling, possible infection at the infusion site. The patient stated understanding of this information communicated and wished to proceed with monoclonal antibody infusion therapy. Current symptoms include: Shortness of breath, cough (productive versus nonproductive), fever, headache, nausea/vomiting, body aches, chills, general malaise, loss of taste or smell, sneezing, nasal congestion. The patient states understanding of this information communicated and wishes to proceed with monoclonal antibody infusion therapy. Patient agrees to receive either balanivimab/etesvimab or casirivimab/imdevimab upon availability. Positive test; 04/21 SX onset: 04/21 SX: cough, congestion, fever Vaccine: YES Oxygen: NO Patient's is an MD and faxing over the COVID test but she has confirmed him positive. [id number] ROS Const Constitutional: Positive for body ache and fever(s) Resp Respiratory: Positive for cough and chest congestion Exam Const General: cooperative and no acute distress Resp Effort Inspection: normal respiratory effort and able to speak in complete sentences Neuro General: patient alert, patient awake and patient oriented x3 Cognition: normal cognition Speech: speech normal Psych Mental Status: mental status grossly normal Mood: congruent mood Attitude: cooperative Thought Process: normal Thought Content: normal Judgment: judgment good Details: Details:: Exam was limited due to phone visit with no video. Quality Reporting Tobacco Screening ([facility] 138) Smoking Status: Never smoker Coding Level of Care Code New Pt Level 1 Telephone Patient Type New History Problem Focused Exam Problem Focused Medical Decision Making Straight Forward Diagnoses COVID-19 U07.1 Type 1 diabetes E10.9 Time Spent (min) 10 Comment [id number] Assessment and Plan Assessment and Plan (1) COVID-19: Status: Acute Plan - Michelle Phoenix NP, SDE-C: The patient remains appropriate for the Monoclonal Antibody Infusion. The patient states understanding of this information communicated and wishes to proceed with monoclonal antibody infusion therapy. Patient agrees to receive either balanivimab/etesvimab or casirivimab/imdevimab upon availability. (2) Type 1 diabetes: Status: Acute 04/21/21 1635 <Electronically signed by Michelle Phoenix NP SDE-C> Date ___ Michelle Phoenix NP SDE-C Cosigner Signature: Date ___ (if applicable) CC: DO Estuardo Haider DO Work Phone: Start: 01-18-2020 End: 01-18-2020 Stress Report Comments: See Note; NOTES: [facility] Cardiovascular Services [address] [place], [place] [id number] MR#: [id number] Acct: [id number] Name: DARRIUS PADRON Rep #: [id number] : 1965 54 From: To Randall MD Primary Care: Dr. Estuardo Jimenez DO Status: Martha PLASENCIA Referring : Estuardo Jimenez DO Sex: M C Stress Test Report Exercise myocardial perfusion stress test. 54-year-old man with a history of diabetes mellitus and coronary artery risk factors. Stress protocol: Resting EKG demonstrates normal sinus rhythm with a rate of 75 bpm resting blood pressure is 128/78 mmHg. The patient exercised according to the regular Kamran protocol for a total duration of 9 minutes and 30 seconds. The maximum heart rate attained was 179 bpm which was 107% of max impacted heart rate the maximum workload was 10.9 metabolic equivalents. The patient maintained sinus rhythm throughout the recording. At rest there were no ST or T wave changes noted to suggest ischemia at peak exercise upsloping ST changes only were noted with no meet the criteria for ischemia. No clinical angina was noted the test was terminated due to shortness of breath and the target heart rate being achieved. The peak blood pressure of 212/88 mmHg. Myocardial perfusion protocol. 13.9 mCi of technetium 99m sestamibi was injected at rest. The patient exercised according to regular Kamran protocol for 9-1/2 minutes. At peak exercise 43.2 mCi of technetium 99m sestamibi was injected stress images were obtained stress and rest images were reconstructed and compared in the short axis vertical long horizontal long axis. Gated images were also obtained. Perfusion SPECT analysis: Review of the images demonstrate normal uptake of tracer noted in all areas of the myocardium the resting images similar demonstrate normal uptake of tracer noted in all areas of the myocardium. No areas of reversibility are noted to suggest ischemia and no previous infarct is noted. Gated SPECT analysis: The gated ejection fraction is noted to be 63%. Conclusion: Normal pharmacologic myocardial perfusion stress test. Preserved ejection fraction. 01/18/20905 <Electronically signed by To Randall MD> Date ___ To Randall MD CC: Dr. Estuardo Jimenez, DO Date Dictated: 01/18/20899 Date Transcribed: 01/18/20899 Supervisor Beater Room: [place] Signed Estuardo Jimenez DO Work Phone: Start: 01-03-2020 Electrocardiogram Start: 08-25-2019 End: 08-25-2019 EGD Report Comments: See Note; NOTES: [facility] Medical Records Department [address] [place] [address] EGD Report MR#: [id number] Acct: [id number] Name: DARRIUS PADRON Rep #: [id number] : 1965 54 From: Jai Shepard MD PCP: Estuardo Jimenez DO [place] [facility] [place] Name: Darrius Padron Procedure Date: 08/25/2019 8:24 AM Date of : 1965 Age: 54 Procedure: Upper GI endoscopy Indications: Dysphagia Providers: Jai Shepard MD Referring MD: Estuardo Jimenez Medicines: Monitored Anesthesia Care Patient Profile: This is a 54 year old male. Refer to note in patient chart for documentation of history and physical. Complications: No immediate complications. Estimated blood loss: Minimal. Procedure: Pre-Anesthesia Assessment: - Prior to the procedure, a History and Physical was performed, and patient medications and allergies were reviewed. The patient's tolerance of previous anesthesia was also reviewed. The risks and benefits of the procedure and the sedation options and risks were discussed with the patient. All questions were answered, and informed consent was obtained. Prior Anticoagulants: The patient has taken no previous anticoagulant or antiplatelet agents. After reviewing the risks and benefits, the patient was deemed in satisfactory condition to undergo the procedure. After obtaining informed consent, the endoscope was passed under direct vision. Throughout the procedure, the patient's blood pressure, pulse, and oxygen saturations were monitored continuously. The gastroscope was introduced through the mouth, and advanced to the second part of duodenum. The upper GI endoscopy was accomplished without difficulty. The patient tolerated the procedure well. Scope In: 8:32:28 AM Scope Out: 8:39:55 AM Total Procedure Duration Time 0 hours 7 minutes 27 seconds Findings: A non-obstructing Schatzki ring was found at the gastroesophageal junction. A TTS dilator was passed through the scope. Dilation with an 18-19-20 mm balloon dilator was performed to 20 mm. The dilation site was examined following endoscope reinsertion and showed no perforation. Biopsies were taken with a cold forceps in the mid esophagus for histology. Biopsies were taken with a cold forceps for histology. The examined duodenum was normal. The stomach was normal. Biopsies were taken with a cold forceps in the gastric antrum for Helicobacter pylori testing. Impression: - Non-obstructing Schatzki ring. Dilated. - Normal examined duodenum. - Normal stomach. - Biopsies were taken with a cold forceps for histology in the mid esophagus. - Biopsies were taken with a cold forceps for histology. - Biopsies were taken with a cold forceps for Helicobacter pylori testing. Recommendation: - Discharge patient to home. - Mechanical soft diet for 2 days. - Continue present medications. - Await pathology results. Procedure Code(s): --- Professional --- 66281, Esophagogastroduodenoscopy, flexible, transoral; with transendoscopic balloon dilation of esophagus (less than 30 mm diameter) Diagnosis Code(s): --- Professional --- K22.2, Esophageal obstruction R13.10, Dysphagia, unspecified CPT copyright 2017 [employer]. All rights reserved. The codes documented in this report are preliminary and upon certified coder review may be revised to meet current compliance requirements. Jai Shepard MD 08/25/2019 8:43:27 AM This report has been signed electronically. Number of Addenda: 0 Note Initiated On: 08/25/2019 8:24 AM 08/25/19 0843 Date ___ Jai Shepard MD Cosigner Signature: Date ___ (if indicated) CC: Jai Shepard MD; Estuardo Jimenez DO Date Dictated: 08/25/19 0824 Date Transcribed: Supervisor Beater Room: AC Signed Estuardo Jimenez Start: 08-25-2019 End: 08-25-2019 Operative Report - CC Letter Comments: See Note; NOTES: [facility] Medical Records Department [address] [place] [address] Operative Report - CC Letter MR#: [id number] Acct: [id number] Name: DARRIUS PADRON Rep #: [id number] : 1965 54 From: Jai Shepard MD PCP: Estuardo Jimenez DO [place] [facility] [place] Estuardo Jimenez Re : Upper GI endoscopy procedure for Darrius Padron Deamartha Jimenez This procedure was performed on Sunday, August 25, 2019. My impressions and recommendations are as follows: Impressions : - Non-obstructing Schatzki ring. Dilated. - Normal examined duodenum. - Normal stomach. - Biopsies were taken with a cold forceps for histology in the mid esophagus. - Biopsies were taken with a cold forceps for histology. - Biopsies were taken with a cold forceps for Helicobacter pylori testing. Recommendations : - Discharge patient to home. - Mechanical soft diet for 2 days. - Continue present medications. - Await pathology results. My findings are described in the full procedure note, which is enclosed. If I can be of further assistance, please feel free to contact me at Doctor phone number(s): , Work: . Sincerely, Jai Shepard MD 08/25/2019 8:43:27 AM This report has been signed electronically. 08/25/1943 Date ___ Jai Shepard MD Cosigner Signature: Date ___ (if indicated) CC: Jai Shepard MD; Estuardo Jimenez DO Date Dictated: 08/25/19823 Date Transcribed: Supervisor Beater Room: CHLOÉ Signed Estuardo Jimenez Start: 08-25-2019 End: 08-25-2019 History and Physical Exam Comments: See Note; NOTES: [facility] Medical Records Department [address] [place] [address] History and Physical 08/25/19824 MR#: [id number] Acct: [id number] Name: DARRIUS PADRON Rep #: [id number] : 1965 54 From: Jai Shepard MD PCP: Estuardo Jimenez DO Status: [facility] Y Location: [place] [address] History of Present Illness Date of Admission: 08/25/19 The patient is a 54 year old M presents after having dysphasia and food impaction. The patient reports longstanding GERD. He was started back on his PPI after he had the dysphasia no more food is been sticking. Past Medical/Surgical History - Planned Operation Planned Operative Procedure/s: EGD Date of Operative Procedure: 08/25/19 Permit Signed: Yes S.O.S: No Is This Patient Having a Total Joint: No - Previous Hospitalizations/Surgeries HX of Surgeries: R KNEE SURGERY 2011. SINUA INFECTION 2007 Any Problems With Anesthesia: No You/Your Family Experience Fever (Hyperthermia) With Anes: No Cholinesterase deficiency: No - Cardiovascular Hx Chest Pain within Last 2 months: No Hx of Irregular Heartbeat and/or Afib: No Hx Heart Attack: No Hx Congestive Heart Failure: No Hx Rheumatic Fever: No Hx Hypertension: Yes Hx Internal Defibrillator: No Hx Pacemaker: No Hx Cardiac Catheterization: No Hx Cardiac Surgery/Stents/Etc.: No Hx Stress Test: Yes HX Edema: No Hx Pain in Legs when Walking/Leg Cramps: No - Respiratory Chronic Cough: No HX of Shortness of Breath: No Hoarseness: No Hx Chronic Obstructive Pulmonary Disease (COPD): No Hx Asthma: No Hx Emphysema: No Hx Sleep Apnea: No CPAP: No Hx Oxygen Use at Home: No Hx Respiratory Tract Infection/Cold (presently): No Do You Snore Loudly (louder than talking or can be heard): No Do You Often Feel Tired/ Fatigued/ Sleepy Dring Daytime?: No Has Anyone Observed You Stop Breathing During Sleep?: No Result (for STOP score): Negative Hx Smoking: No Smoking Status: Never smoker - Gastrointestinal Hx Gastroesophageal Reflux: No Hx Gastrointestinal Disorders: No Hx Gastrointestinal Bleed: No Hx Ulcer: No Hx Hiatal Hernia: No Difficulty Chewing/Swallowing: No Recent Onset of Swallowing Problems: No Special diet followed at home: No Hx Unplanned Weight Loss of 20#: No HX Unplanned Weight Gain of 20#: No - Neurological Hx Seizures: No HX Syncope/Blackout Spells/Unconsciousness: No Hx CVA/Stroke: No Hx Transient Ischemic Attacks (TIA): No Hx Multiple Sclerosis: No Hx Parkinson's Disease: No Hx Head/Neck Injury: No Hx Headaches: No Hx Back Injury/Pain: No Recent Onset of Speech Difficulty: No Restless Legs: No Does patient have nerve stimulator: No Patient instructed to have device shut off: No Rep notified?: No - Blood Disorder Hx Leukemia: No Bleeding Tendencies: No Hx Deep Vein Thrombosis: No Hx High Cholesterol: No Blood Transmitted Disease: No Hx Hepatitis: No Hx Cirrhosis: No Hx Anemia: No Hx Blood Disorders: No - Reproduction : No - Musculoskeletal Hx Arthritis: No Hx Rheumatoid Arthritis: No Hx Gout: No Recent Onset of an Orthopedic Problem: No - Endocrine Hx Diabetes: Yes Insulin: Yes Thyroid Disease: Yes Hx Steroid Therapy: No - Psycho/Social Hx Substance Use: No Hx Alcohol Use: No Hx Anxiety: No Hx Depression: No Mental Illness: No Hx Dementia: No - Miscellaneous Hx Cancer: No Recent Exposure to Contagious Disease: No Active MRSA: No Hx of C-Diff: No Any Loose Teeth: No Allergies No Known Allergies Allergy (Verified 08/25/19 07:33) Sibling - - Holly's esophagus - Discharge Is Pt Admitted From a Halfway, or a Mcfp: No After D/C, Where Do you Plan to Go: Return Home - Physical Exam Vitals/I AND O's: Vital Signs Temp Pulse Resp BP Pulse Ox 98.3 F 73 15 143/78 H 100 08/25/19 07:49 08/25/19 07:49 08/25/19 07:49 08/25/19 07:49 08/25/19 07:49 Oxygen Delivery Method Room Air Weight: 188 lb 0.869 oz Body Mass Index (BMI) 24.7 General: Alert, Oriented x3 Lungs: Normal air movement Cardiovascular: Regular rate, Regular Rhythm Abdomen: Soft, Non Tender, Non-Distended Laboratory Results 08/25/19 07:39: POC Glucose 150 H 08/25/19 08:00: Sodium Pending, Potassium Pending, Chloride Pending, Carbon Dioxide Pending, Anion Gap Pending, BUN Pending, Creatinine Pending, Est GFR (MDRD) Af Amer Pending, Est GFR (MDRD) Non-Af Pending, BUN/Creatinine Ratio Pending, Glucose Pending, Calcium Pending, Phosphorus Pending, Magnesium Pending, Total Bilirubin Pending, Direct Bilirubin Pending, AST Pending, ALT Pending, Alkaline Phosphatase Pending, Total Protein Pending, Albumin Pending, Triglycerides Pending, Cholesterol Pending, LDL Cholesterol Pending, VLDL Cholesterol Pending, HDL Cholesterol Pending 08/25/19 08:00: Hemoglobin A1c Pending Current Medications Lactated Ringer's () 1,000 mls @ 100 mls/hr IV .Q10H BLAKE Last Admin: 08/25/19 07:55 Dose: 100 mls/hr Documented by: Assessment/Plan All Active Problems Food impaction of esophagus (Acute) 54-year-old male with dysphasia 1. Patient had food impaction and EGD cleared the food impaction. At that time I believe I saw Schatzki's ring. The patient has longstanding GERD. He was started back on his PPI. I discussed performing EGD today with possible balloon dilation as well as biopsies for eosinophilic esophagitis. I explained endoscopy in detail to the patient. I explained the risks including but not limited to stroke or heart attack with anesthesia, perforation of the GI tract, bleeding, infection. I explained that any of these could necessitate further emergency surgery. The patient understands and all questions were answered sufficiently. The patient wishes to proceed with procedure. Jai Shepard MD Pager: [facility] [address] [place] [address] [address] [place] [address] Office: Surgery Risks - Colonoscopy Risks Include but are not Limited To: Risks include but are not limited to: Bleeding, perforation requiring further surgery, inability to complete colonoscopy requiring barium enema. 08/25/19 0827 <Electronically signed by Jai Shepard MD> Date ___ Jai Shepard MD Cosigner Signature: Date ___ (if applicable) CC: Jai Shepard MD; Estuardo Jimenez DO Signed Estuardo Jimenez Start: 08-04-2019 End: 08-04-2019 EGD Report Comments: See Note; NOTES: [facility] Medical Records Department [address] [place] [address] EGD Report MR#: [id number] Acct: [id number] Name: BONEZZDARRIUS Iraheta Rep #: [id number] : 1965 54 From: Jai Shepard MD PCP: Estuardo Jimenez DO Status: REG ER Patient Name: Darrius Padron Procedure Date: 08/03/2019 11:29 PM Date of : 1965 Age: 54 Procedure: Upper GI endoscopy Indications: Foreign body in the esophagus Providers: Jai Shepard MD Medicines: Monitored Anesthesia Care Patient Profile: This is a 54 year old male. Refer to note in patient chart for documentation of history and physical. Complications: No immediate complications. Estimated blood loss: Minimal. Procedure: Pre-Anesthesia Assessment: - Prior to the procedure, a History and Physical was performed, and patient medications and allergies were reviewed. The patient's tolerance of previous anesthesia was also reviewed. The risks and benefits of the procedure and the sedation options and risks were discussed with the patient. All questions were answered, and informed consent was obtained. Prior Anticoagulants: The patient has taken no previous anticoagulant or antiplatelet agents. After reviewing the risks and benefits, the patient was deemed in satisfactory condition to undergo the procedure. After obtaining informed consent, the endoscope was passed under direct vision. Throughout the procedure, the patient's blood pressure, pulse, and oxygen saturations were monitored continuously. The gastroscope was introduced through the mouth, and advanced to the second part of duodenum. The upper GI endoscopy was accomplished without difficulty. The patient tolerated the procedure well. Scope In: 11:38:21 PM Scope Out: 11:40:20 PM Total Procedure Duration Time 0 hours 1 minute 59 seconds Findings: Food was found in the lower third of the esophagus. Removal of food was accomplished. A mild Schatzki ring was found at the gastroesophageal junction. Impression: - Food in the lower third of the esophagus. - Mild Schatzki ring. - No specimens collected. Recommendation: - Discharge patient to home. - Full liquid diet for 2 days. - Continue present medications. - Return to my office in 1 week. Procedure Code(s): --- Professional --- 35632, Esophagogastroduodenoscopy, flexible, transoral; with removal of foreign body(s) Diagnosis Code(s): --- Professional --- T18.128A, Food in esophagus causing other injury, initial encounter K22.2, Esophageal obstruction T18.108A, Unspecified foreign body in esophagus causing other injury, initial encounter CPT copyright 2017 [employer]. All rights reserved. The codes documented in this report are preliminary and upon certified coder review may be revised to meet current compliance requirements. Jai Shepard MD 08/03/2019 11:59:26 PM This report has been signed electronically. Number of Addenda: 0 Note Initiated On: 08/03/2019 11:29 PM 08/03/19 5831 Date ___ Jai Shepard MD Cosigner Signature: Date ___ (if indicated) CC: Jai Shepard MD; Estuardo Jimenez DO Date Dictated: 08/03/19 8808 Date Transcribed: Supervisor Beater Room: CHLOÉ Signed Estuardo Jimenez Start: 08-04-2019 End: 08-04-2019 Operative Report - CC Letter Comments: See Note; NOTES: [facility] Medical Records Department [address] [place] [address] Operative Report - CC Letter MR#: [id number] Acct: [id number] Name: DARRIUS PADRON Rep #: [id number] : 1965 54 From: Jai Shepard MD PCP: Estuardo Jimenez DO Status: REG ER 08/03/2019 Estuardo Jimenez Re : Upper GI endoscopy procedure for Darrius Padron Dear José This procedure was performed on Saturday, August 03, 2019. My impressions and recommendations are as follows: Impressions : - Food in the lower third of the esophagus. - Mild Schatzki ring. - No specimens collected. Recommendations : - Discharge patient to home. - Full liquid diet for 2 days. - Continue present medications. - Return to my office in 1 week. My findings are described in the full procedure note, which is enclosed. If I can be of further assistance, please feel free to contact me at Doctor phone number(s): , Work: . Sincerely, Jai Shepard MD 08/03/2019 11:59:26 PM This report has been signed electronically. 08/03/19 9704 Date ___ Jai Shepard MD Cosigner Signature: Date ___ (if indicated) CC: Jai Shepard MD; Estuardo Jimenez DO Date Dictated: 08/03/19 1664 Date Transcribed: Supervisor Beater Room: AC Signed Estuardo Jimenez Start: 10-25-2017 End: 10-25-2017 Esophagus Only Comments: See Note; NOTES: [facility] Imaging Services [address] [place] [address] Esophagus Only MR#: [id number] Acct: [id number] Name: DARRIUS PADRON Rep #: [id number] : 1965 M 52 From: Christiano Montoya MD PCP: Estuardo Jimenez DO Status: REG CLI Study: Esophagus Only Date of Exam: 10/25/17 Exam# [id number] Ordering Dr: Estuardo Jimenez DO STUDY: X-RAY - ESOPHAGUS (BARIUM SWALLOW) WITH FLUOROSCOPY REASON FOR EXAM: Male, 52 years old. One-year history of dysphagia. TECHNIQUE: 17 view(s) of the esophagus were obtained following swallowing of barium. FLUOROSCOPY TIME (if supplied): (0:25) minutes/seconds COMPARISON: None. ___ FINDINGS: There is no demonstrated esophageal foreign body. There is no demonstrated stricture or mucosal abnormality. There is a small hiatal hernia without gastric esophageal reflux. The patient ingested a 12 mm tablet of barium without any difficulty. Normal visualized aortic arch and descending thoracic aorta. Normal visualized pulmonary parenchyma. Normal visualized osseous structures of the thorax. ___ RAD/Esophagus Only IMPRESSION: Small sliding hiatal hernia without evidence of gastroesophageal reflux at this time. Electronically Signed: Christiano Montoya MD at 9:22 EDT Tel [phone], Service support , CC: Estuardo Jimenez DO Supervisor Beater Room: Signed Estuardo Jimenez Work Phone: Start: 04-05-2017 End: 04-05-2017 Stress Report Comments: See Note; NOTES: [facility] Cardiovascular Services [address] [facility] [place] [address] MR#: [id number] Acct: [id number] Name: DARRIUS PADRON Rep #: [id number] : 1965 51 From: To Randall MD Primary Care: Estuardo Jimenez DO Status: REG CLI Ordering Dr: Sex: M C Stress Test Report - Stress Test Report Stress Test Report: Exercise myocardial perfusion stress test. 51-year-old man with a history of diabetes. lantus, synthroid Stress test: Resting EKG demonstrates normal sinus rhythm with a rate of 73 bpm. Normal intervals are noted. Resting blood pressure is 122/82 mmHg. The patient exercised according to the regular Kamran protocol for total duration of 9 minutes completing stage III of the Kamran protocol. The maximum heart rate attained was 146 bpm which was 86% of the maximum predicted heart rate. The maximum workload attained was 10.1 metabolic equivalents. The patient maintained sinus rhythm throughout the recording. At rest there were no ST or T-wave changes noted suggest ischemia at peak exercise upsloping ST changes only were noted with no meet the criteria for ischemia. No clinical angina was noted the test was terminated due to leg fatigue and leg pain. The resting blood pressure is 122/82 mmHg with a peak blood pressure 148/78 mmHg. Rate pressure product was 21,000. Myocardial perfusion protocol:. 13.9 mCi of technetium 99m sestamibi was injected at rest. The patient exercised according to the Kamran protocol for 9 minutes completing stage III of the Kamran protocol. At peak exercise 40.4 mCi of technetium 99m sestamibi was injected. Stress images were obtained. Stress and rest images were reconstructed and compared in the short axis vertical and horizontal long axis. Gated images were also obtained. Perfusion SPECT analysis:. Review of the stress images demonstrate normal uptake of tracer noted in all areas of the myocardium with no perfusion defect noted. There is a tiny apical stripe present. This is present on the stress and resting images to a similar extent. The above is not indicative of ischemia. No previous infarct is noted. Gated SPECT analysis The gated ejection fraction is 63%. Conclusion: Normal exercise myocardial perfusion stress test at a high workload. No clinical angina noted. Excellent blood pressure response to exercise. Preserved ejection fraction. 04/05/171105 <Electronically signed by To Randall MD> Date ___ To Randall MD CC: To Randall MD; Estuardo Jimenez DO Date Dictated: 04/05/171100 Date Transcribed: 04/05/171100 Supervisor Beater Room: CO Signed Dolly Causey Start: 04-03-2016 End: 04-03-2016 Lower Ext Joint Only (Routine) Comments: See Note; NOTES: [facility] Imaging Services [address] [place] [address] Verdana 4d Lower Ext Joint Only (Routine) MR#: [id number] Acct: [id number] Name: DARRIUS PADRON Rep #: [id number] : 1965 M 50 From: Ricki Vu MD PCP: Estuardo Jimenez DO Status: REG CLI Study: Lower Ext Joint Only (Routine) Date of Exam: 04/03/16 Exam# [id number] Ordering Dr: Julio Padron MD STUDY: MRI LEFT KNEE REASON FOR EXAM: Male, 50 years old. Internal derangement TECHNIQUE: Standardized fat and water weighted pulse sequences were obtained in all 3 orthogonal planes. COMPARISON: X-ray April 01, 2016 ___ FINDINGS: Medial meniscus tear at the junction posterior horn and body at the inferior articular surface, series 4 image 9/42. There is truncation and displacement of the body of the meniscus . There is diffuse, less than 50% thickness articular cartilage loss of the medial femorotibial compartment. There is mild osteoarthritic spur formation of the medial knee compartment. There is reactive marrow edema of the medial tibial plateau. Normal medial collateral ligamentous complex (MCL). Normal distal semimembranosus, gracilis and semitendinosus tendons. There is radial tear of the body of the lateral meniscus, series 4 image 36/42. Normal hyaline cartilage of the lateral femorotibial compartment. Normal lateral femoral condyle and tibial plateau. Normal proximal tibiofibular articulation. Normal lateral collateral (fibular) ligament. Normal popliteus tendon. Normal biceps femoris tendon. Normal anterior cruciate ligament (ACL). There is buckling of an intact PCL. Normal congruent patellofemoral articulation. Normal hyaline cartilage of the patellofemoral compartment. Normal medial and lateral patellar retinaculum. Normal quadriceps tendon. Normal patellar tendon. Normal Hoffa's fat pad. There is a small volume joint effusion. The soft tissues are unremarkable. The otherwise visualized osseous structures are unremarkable. ___ MRI/Lower Ext Joint Only (Routine) IMPRESSION: Medial meniscus tear with degenerative change of the medial compartment. Lateral meniscus tear. Buckling of the posterior cruciate ligament consistent with chronic partial tear. Electronically Signed: Ricki Vu MD at 14:08 EDT , Service support [phone], CC: Julio Padron MD; Estuardo Jimenez DO Supervisor Beater Room: Signed Julio Padron Work Phone: Start: 04-01-2016 End: 04-02-2016 Knee 4 or More Views Comments: See Note; NOTES: [facility] Imaging Services [address] [place] [address] Verdana 4d Knee 4 or More Views MR#: [id number] Acct: [id number] Name: DARRIUS PADRON Rep #: [id number] : 1965 M 50 From: Makenzie Borden MD PCP: Estuardo Jimenez DO Status: REG CLI Study: Knee 4 or More Views Date of Exam: 04/01/16 Exam# [id number] Ordering Dr: Estuardo Jimenez DO STUDY: X-RAY - LEFT KNEE REASON FOR EXAM: Male, 50 years old. Left-sided knee pain. TECHNIQUE: 4 view(s) of the knee. COMPARISON: None. ___ FINDINGS: Normal visualized distal femur. Normal visualized proximal tibia and fibula. Normal proximal tibiofibular articulation. There is no demonstrated fracture. There is mild degenerative arthrosis of the medial femorotibial compartment. There mild degenerative changes of the lateral femoral tibial compartment with chondrocalcinosis. There is mild degenerative arthrosis of the patellofemoral articulation. There is no demonstrated joint effusion. The soft tissue structures are unremarkable. ___ RAD/Knee 4 or More Views IMPRESSION: Mild degenerative arthropathy and chondrocalcinosis. Electronically Signed: Makenzie Borden MD at 23:59 EDT , Service support [phone], CC: Estuardo Jimenez DO Supervisor Beater Room: Signed Estuardo Jimenez Work Phone: Start: 11-28-2015 End: 11-28-2015 Thyroid Comments: See Note; NOTES: [facility] Imaging Services [address] [place] [address] Verdana 4d Thyroid MR#: [id number] Acct: [id number] Name: DARRIUS PADRON Rep #: [id number] : 1965 M 50 From: Christiano Montoya MD PCP: Estuardo Jimenez DO Status: REG CLI Study: Thyroid Date of Exam: 11/28/15 Exam# [id number] Ordering Dr: Estuardo Jimenez DO STUDY: THYROID ULTRASOUND REASON FOR EXAM: Male, 50 years old. Thyroid nodule. TECHNIQUE: Ultrasound evaluation of the thyroid was performed with real-time and static kim-scale imaging. COMPARISON: None. ___ FINDINGS: RIGHT LOBE: The right lobe of the thyroid gland is slightly enlarged and measures 5.2 cm x 2.0 cm x 1.9 cm. There is a heterogeneous echotexture. There are no demonstrated solid, cystic or complex lesions. LEFT LOBE: The left lobe of the thyroid gland measures 4.5 cm x 1.4 cm x 2.0 cm. There is a heterogeneous echotexture. There are no demonstrated solid, cystic or complex lesions. ISTHMUS: The isthmus measures 4.0 mm. The regional lymph nodes are normal. ___ IMPRESSION: Slight enlargement of the right lobe of the thyroid. Heterogeneous echotexture of both lobes of thyroid gland without a distinct nodular density. Electronically Signed: Christiano Montoay MD at 9:08 EDT Tel [phone], Service support [phone], CC: Estuardo Jimenez DO Supervisor Beater Room: Signed Estuardo Jimenez Work Phone: Start: 08-24-2013 End: 08-24-2013 Inital Evaluation - PT Comments: See Note; NOTES: [facility] Physical Therapy [facility] [place] [address] Fax REHABILITATION SERVICES INITIAL EVALUATION MR#: [id number] Acct: [id number] Name: DARRIUS PADRON Rep #: [id number] : 1965 48 From: Abdiel Jorgensen Referring DrMaddie: Jluio Padron MD Status: DIS RCR Insurance: [facility] Eval Date: DATE OF SERVICE: 07/07/2013 SUBJECTIVE: Mr. Padron was referred to our care by Dr. Julio Padron with a diagnosis of right knee strain. This is an individual, who I had worked with him in the past for his right knee following surgery with Dr. Her where he had implant secondary to degenerative changes. Mr. Padron is reporting pain over his left medial knee, which is worse at night while sleeping to the point that is waking him several times at night. He reports his pain at 8/10 at times. He is currently managing his pain with 2 Celebrex and 6-8 Aleve a day. PAST MEDICAL HISTORY: Significant for diabetes. He has had an x-ray in the past, which indicates that he has minimal narrowing of the medial compartment as well as a minimal size osteophyte and some degenerative changes. His hope is that he can avoid having a total knee replacement secondary to his young age. OBJECTIVE: During his evaluation, I tried to gap him both at 0 and 30 degrees, he did open slightly at 30 degrees. He had tenderness over the medial joint line. Girth measurements indicate that he has about the same symmetry both above and below the patella. I was not able to appreciate any meniscal type catching symptoms with Apley's grind or Emmanuel's click. He had a stable knee with both anterior and posterior draw. ASSESSMENT: Indicative of early degenerative joint disease and as noted a small osteophyte that I was able to reproduce some of his symptoms over the medial joint line over the MCL. PROBLEMS: 1. Pain. 2. Altered gait. 3. Altered ADLs. PLAN: The plan is to see him 2 times a week over the next 4-6 weeks depending on his progress. Today, I took the opportunity of looking at his orthotics and I placed a lateral wedge into a shoe to open up his medial joint line. We did ultrasound at 50% and then I did a trial of dexamethasone after discussing his case with his physician. What I would like to do is I would like to start beginning gradual strengthening program to see if we can change some of his walking mechanics to open up his medial joint line and decompress that area. An offsetting joint line brace may be helpful for him if that does not work. Abdiel Sexton C: Julio Padron MD T: ITALIA JOB: [id number] <Electronically signed by Abdiel Jorgensen > 08/24/13 1501 CC: Signed For Medicare only, by signing this I certify the plan of care. Physicians Signature Date Nusrat Connors Jihanmaria isabelkarolina Work Phone: Start: 08-24-2013 End: 08-24-2013 PT Discharge Summary Comments: See Note; NOTES: [facility] [address] [place] [address] Fax REHABILITATION SERVICES DISCHARGE SUMMARY MR#: [id number] Acct: [id number] Name: DARRIUS PADRON Rep #: [id number] : 1965 48 From: Abdiel Jorgensen Referring Dr.: Julio Padron MD Status: DIS RCR Eval Date: Discharge Date: 08/14/13 DATE OF SERVICE: 08/14/2013 Darrius has been seen for 4 of his scheduled 10 visits. He is doing quite well, feels about 100% better. He has had 0-2 pain in his knee. What we have done for him is placed him on a strengthening program, did some ultrasound as well as iontophoresis, which has allowed him to sleep through the night. We also modified his orthotic to give him a lateral wedge that opens up his medial joint line. If he continues to have pain, what I would recommend is that he get an unloading brace either and to change his orthotics in the near future. If Darrius has any problems in the near future, I would be happy to see him otherwise he is discharged from our care. Abdiel Sexton C: Julio Padron MD T: NTS JOB: [id number] <Electronically signed by Abdiel Jorgensen > 08/24/13 1501 CC: Signed Nusrat Connors Jihanmaria isabelkarolina Work Phone: Start: 04-20-2013 End: 04-21-2013 Nuclear Stress Test - Treadmil Comments: See Note; NOTES: [facility] Imaging Services [address] [place] [address] Nuclear Medicine Report MR#: [id number] Acct: [id number] Name: DARRIUS PADRON Rep #: [id number] : 1965 M 47 From: To Randall MD PCP: Status: REG CLI Study: Nuclear Stress Test - Treadmms Date of Exam: 04/20/13 Exam# [id number] Ordering Dr: Julio Padron MD EXERCISE MYOCARDIAL PERFUSION STRESS TEST HISTORY: This juana a 47-year-old man with a history of abnormal calcium score on CT angio and family history. BASELINE INFORMATION: Baseline EKG demonstrated normal sinus rhythm with a rate of 73 beats per minute. Normal intervals are noted. Resting blood pressure was 126/82. STRESS TEST: The patient exercised according to a regular Kamran protocol for a total duration of 12 minutes. Patient completed stage 4 of the Kamran Protocol. The maximum heart rate obtained was 181 beats per minute, which is 104% of maximum predicted heart rate. Maximum workload attained was 13.4 METS. The patient maintained sinus rhythm throughout the recording. At rest there were no ST or T-wave changes noted to suggest ischemia. At peak exercise, no ST or T-wave changes were noted to suggest ischemia. No clinical angina was noted. The test was terminated due to leg fatigue and shortness of breath, which was not unduly out of proportion. Upsloping ST changes were noted, which were approximately 0.6 to 0.75 mm. The resting blood pressure was 126/82 with a peak blood pressure of 172/90. _Rate pressure product was 30,700. MYOCARDIAL PERFUSION PROTOCOL: 11.3 mCi of Sestamibi was injected at rest. The patient exercised according to the regular Kamran protocol for 12 minutes, attaining 181 beats per minute, which is 104% of maximum predicted heart rate. Maximum workload attained was 13.4 METS. At peak exercise, 36.0 mCi of Sestamibi was injected. Stress images were obtained. Stress and rest images were reconstructed and compared in the short axis, vertical long, and horizontal long axes. Gated images were also obtained. PERFUSION SPECT ANALYSIS: Review of the images demonstrate normal uptake of tracer noted in all areas of the myocardium on the stress and resting images with uniform perfusion noted in all areas except for mild reduction in the basal inferior wall, which is present on the stress and resting images, No reversibilities noted to suggest ischemia. GATED SPECT ANALYSIS: The left ventricle is nondilated with an estimated ejection fraction of 62%. CONCLUSION 1. Exercise myocardial stress test with no evidence of ischemia after high workload. 2. Excellent functional aerobic capacity. 3. Preserved ejection fraction. CC: Julio Padron MD Supervisor Beater Room: SARAH Signed Julio Padron Work Phone: Start: 03-31-2013 End: 04-02-2013 CCTA Calcium Scoring Comments: See Note; NOTES: [facility] Imaging Services [address] [place] [address] Nuclear Medicine Report MR#: [id number] Acct: [id number] Name: DARRIUS PADRON Rep #: [id number] : 1965 M 47 From: To Randall MD PCP: Status: REG CLI Study: CCTA w/Cont Coronary Arteries Date of Exam: 03/31/13 Exam# [id number]; [id number] Ordering Dr: Julio Padron MD REASON FOR EVALUATION: Evaluation of coronary anatomy. INDICATION: A 47-year-old man with a strong family history of coronary artery disease and insulin dependent diabetes mellitus. High resolution computed tomographic imaging of the chest was performed with particular attention paid to the coronary arteries. Images from the examination were analyzed for the presence of extent of coronary calcification using the coronary calcification software. The patient tolerated the procedure well and there were no complications. The results of the coronary calcification analysis are noted as follows: There is calcium noted in the proximal, mid, and distal left anterior descending artery. The proximal and mid circumflex artery, and the proximal mid and right coronary artery. The total Agatston score is 493 with the percentile ranking of greater than 75% of age predicted. CORONARY ARTERIOGRAPHY: The patient was brought to the suite in the postabsorptive nonsedated state. A large bore intravenous needle was placed in the left forearm. The patient was administered sublingual nitroglycerin and subsequently received 100 mL of Visipaque. Slices, 0.625 mm, were reconstructed and a computer generated scan was noted. There was mild misregistration artifact present. CORONARY ARTERIES: The aorta was noted to be trileaflet with a normal left main coronary artery. It bifurcated into the left anterior descending artery and left circumflex artery. LEFT ANTERIOR DESCENDING ARTERY: The left anterior descending artery was a medium sized vessel. It had proximal eccentric calcification, which was mild and mild mid moderate calcification noted. There was mild plaque disease noted in the proximal left anterior descending artery and moderate plaque disease noted in the mid left anterior descending artery. No high grade occlusive lesions were noted. LEFT CIRCUMFLEX ARTERY: The left circumflex artery was a medium sized vessel. There was mild calcification noted proximally with mild diffuse plaque disease noted throughout. RIGHT CORONARY ARTERY: The right coronary artery was a dominant vessel. It was also noted to arise of the right coronary cusp with mild proximal and mid and distal significant calcification noted to prior to the bifurcation. No high grade obstructive lesions were noted, though the extent of the coronary calcification precluded definitive comment on the above. CONCLUSION: 1. Elevated calcium score. 2. Coronary artery disease with moderate calcification noted in the left anterior descending artery and distal right coronary artery. CC: Julio Padron MD Supervisor Beater Room: GRIGGS Signed Julio Padron Work Phone: Start: 03-31-2013 End: 04-02-2013 CCTA w/Cont Coronary Arteries Comments: See Note; NOTES: [facility] Imaging Services [address] [place] [address] Nuclear Medicine Report MR#: [id number] Acct: [id number] Name: DARRIUS PADRON Rep #: [id number] : 1965 47 From: To Randall MD PCP: Status: REG CLI Study: CCTA w/Cont Coronary Arteries Date of Exam: 03/31/13 Exam# [id number]; [id number] Ordering Dr: Julio Padron MD REASON FOR EVALUATION: Evaluation of coronary anatomy. INDICATION: A 47-year-old man with a strong family history of coronary artery disease and insulin dependent diabetes mellitus. High resolution computed tomographic imaging of the chest was performed with particular attention paid to the coronary arteries. Images from the examination were analyzed for the presence of extent of coronary calcification using the coronary calcification software. The patient tolerated the procedure well and there were no complications. The results of the coronary calcification analysis are noted as follows: There is calcium noted in the proximal, mid, and distal left anterior descending artery. The proximal and mid circumflex artery, and the proximal mid and right coronary artery. The total Agatston score is 493 with the percentile ranking of greater than 75% of age predicted. CORONARY ARTERIOGRAPHY: The patient was brought to the suite in the postabsorptive nonsedated state. A large bore intravenous needle was placed in the left forearm. The patient was administered sublingual nitroglycerin and subsequently received 100 mL of Visipaque. Slices, 0.625 mm, were reconstructed and a computer generated scan was noted. There was mild misregistration artifact present. CORONARY ARTERIES: The aorta was noted to be trileaflet with a normal left main coronary artery. It bifurcated into the left anterior descending artery and left circumflex artery. LEFT ANTERIOR DESCENDING ARTERY: The left anterior descending artery was a medium sized vessel. It had proximal eccentric calcification, which was mild and mild mid moderate calcification noted. There was mild plaque disease noted in the proximal left anterior descending artery and moderate plaque disease noted in the mid left anterior descending artery. No high grade occlusive lesions were noted. LEFT CIRCUMFLEX ARTERY: The left circumflex artery was a medium sized vessel. There was mild calcification noted proximally with mild diffuse plaque disease noted throughout. RIGHT CORONARY ARTERY: The right coronary artery was a dominant vessel. It was also noted to arise of the right coronary cusp with mild proximal and mid and distal significant calcification noted to prior to the bifurcation. No high grade obstructive lesions were noted, though the extent of the coronary calcification precluded definitive comment on the above. CONCLUSION: 1. Elevated calcium score. 2. Coronary artery disease with moderate calcification noted in the left anterior descending artery and distal right coronary artery. CC: Julio Padron MD Supervisor Beater Room: GRIGGS Signed Julio Padron Work Phone: Start: 03-31-2013 End: 03-31-[address] w/CCTA Comments: See Note; NOTES: [facility] Imaging Services [address] [place] [id number] CAT Scan Report MR#: [id number] Acct: [id number] Name: DARRIUS PADRON Rep #: [id number] : 1965 M 47 From: Christiano Montoya MD PCP: Status: REG CLI Study: Limited Chest CT w/CCTA Date of Exam: 03/31/13 Exam# [id number] Ordering Dr: Julio Padron MD STUDY: CT CHEST WITH CONTRAST REASON FOR EXAM: Male, 47 years old. Chest pain. RADIATION DOSAGE (If Supplied By Facility): CTDIvol = ( 79.66 ) mGy, DLP = ( 1914.53 ) mGycm TECHNIQUE: High resolution transaxial imaging was performed following intravenous administration of 100 ml of Isovue 370 contrast material. The scan was performed for CT coronary angiography. COMPARISON: None. ___ FINDINGS: The lungs are normal. There is no demonstrated pleural abnormality. There are calcifications of the coronary arteries. Normal mediastinum. Normal hilar regions. Normal enhanced pulmonary arteries. Normal aorta arch and descending thoracic aorta. Normal osseous structures. There is no demonstrated abnormality of the visualized upper abdomen. ___ IMPRESSION: Coronary artery calcification. Signed: Christiano Montoya M.D. March 31, 2013 at 3:08:51 PM EDT [phone] Electronically Signed GP/GP If you are the referring physician and would like to consult with the radiologist who provided this interpretation, please contact Christiano Montoya M.D. at [phone]. If this radiologist is unavailable, you will be directed to another radiologist to assist. If you are a patient with a question regarding this report, please contact your referring physician directly. Professional Interpretation Provided By: [employer], Phone , These documents contain legally protected and confidential health information intended only for the use of the individual or entity named above. If you are not the intended recipient, you are hereby notified that any disclosure, copying, distribution, or other use of these documents is strictly prohibited. If you have received this information in error, please notify the sender immediately and arrange for the return or destruction of these documents. CC: Julio Padron MD Supervisor Beater Room: Signed Julio Padron Work Phone: Start: 12-15-2012 End: 12-15-2012 Screening colonoscopy Tiffani Mustafa Comment on above: Dr. Herrera - repeat in 5 yrs autoknee resurfacing - for meniscal tear- right knee Estuardo Karolina Fast Work Phone: autoknee resurfacing - for meniscal tear- right knee Estuardo A Fast Work Phone: Comment on above: partial knee replacemnt autoknee resurfacing - for meniscal tear- right knee Tiffani Manchak STATISTICAL MACHINE SERVICER Comment on above: partial knee replacemnt autoknee resurfacing - for meniscal tear- right knee Jonathan George STATISTICAL MACHINE SERVICER Comment on above: partial knee replacemnt autoknee resurfacing - for meniscal tear- right knee Tiffani Manchak STATISTICAL MACHINE SERVICER Comment on above: partial knee replacemnt autoknee resurfacing - for meniscal tear- right knee Tiffani Manchak STATISTICAL MACHINE SERVICER Comment on above: partial knee replacemnt autoknee resurfacing - for meniscal tear- right knee Tiffani Manchak STATISTICAL MACHINE SERVICER Comment on above: partial knee replacemnt spinal stenosis- s/p fusion L4-L5- and laminectomy L4-L5- with bone graft Estuardo Turcios Fast DO Work Phone: spinal stenosis- s/p fusion L4-L5- and laminectomy L4-L5- with bone graft Tiffani Benjik STATISTICAL MACHINE SERVICER Urine culture Dr. Mills Fast Work Phone: Plan of Treatment Date Care Activity Detail Author Start: 01-23-2023 Procedure Education Eprescribed prescriptions (G8553) [facility]; [facility] Work Phone: Start: 01-23-2023 Assay of thyroid stimulating hormone tsh TSH (THYROID STIMULATING HORMONE) (75389) [facility]; [facility] Work Phone: Start: 11-08-2022 End: 11-08-2022 Patient encounter procedure 11/08/2022 Office Visit Neurology Nadya Waddell MD [address] [facility] [address] [place] [address] [facility] Start: 10-17-2022 Procedure Education Eprescribed prescriptions (G8553) [facility]; [facility] Work Phone: Start: 10-17-2022 Assay of thyroid stimulating hormone tsh TSH (73349) [facility]; [facility] Work Phone: Start: 10-17-2022 25 hydroxy includes fractions if performed Vitamin D Hydroxy (37878) [facility]; [facility] Work Phone: Start: 10-17-2022 Blood count complete auto&auto difrntl wbc CBC with auto diff (87692) [facility]; [facility] Work Phone: Start: 10-17-2022 Comprehensive metabolic panel METABOLIC PANEL, COMPREHENSIVE (64872) [facility]; [facility] Work Phone: Start: 10-17-2022 Urine albumin quantitative MICROALBUMIN: CREATININE RATIO (60265) AND (29633) [facility]; [facility] Work Phone: Start: 10-17-2022 Hemoglobin glycosylated a1c HGB A1C (64596) [facility]; [facility] Work Phone: Start: 10-17-2022 Lipid panel LIPID PANEL (56750) [facility]; [facility] Work Phone: Start: 09-28-2022 Blood count complete automated CBC & PLATELETS (AUTO) (91659) [facility]; [facility] Work Phone: Start: 09-27-2022 Assay of troponin quantitative Troponin T (High Sensitive) (61596) [facility]; [facility] Work Phone: Comment on above: stat Start: 09-26-2022 Culture bacterial quanttative colony count urine URINE STEHPEN CULTURE (CHAYO COL COUNT) (21881) [facility]; [facility] Work Phone: Start: 09-26-2022 Blood count complete auto&auto difrntl wbc CBC W/AUTO DIFF WBC (35427) [facility]; [facility] Work Phone: Comment on above: stat Start: 09-26-2022 Comprehensive metabolic panel METABOLIC PANEL, COMPREHENSIVE (08511) [facility]; [facility] Work Phone: Comment on above: stat Start: 04-12-2023 Urnls dip stick/tablet reagent auto microscopy URINALYSIS, W/ MICRO (00330) [facility]; [facility] Work Phone: Comment on above: stat Start: 09-17-2022 Assay of thyroid stimulating hormone tsh TSH (THYROID STIMULATING HORMONE) (26289) [facility]; [facility] Work Phone: Comment on above: STAT Start: 09-12-2022 Procedure Education Eprescribed prescriptions (G8553) [facility]; [facility] Work Phone: Start: 09-12-2022 25 hydroxy includes fractions if performed Vitamin D Hydroxy (46783) [facility]; [facility] Work Phone: Start: 09-12-2022 Assay of thyroid stimulating hormone tsh TSH (07656) [facility]; [facility] Work Phone: Start: 09-12-2022 Blood count complete auto&auto difrntl wbc CBC W/AUTO DIFF WBC (46365) [facility]; [facility] Work Phone: Start: 09-12-2022 Comprehensive metabolic panel METABOLIC PANEL, COMPREHENSIVE (42092) [facility]; [facility] Work Phone: Start: 08-29-2022 Colonoscopy w/biopsy single/multiple COLONOSCOPY AND BIOPSY [facility] Start: 08-29-2022 Patient discharge [facility] Start: 08-10-2022 Assay of gammaglobulin iga igd igg igm each [facility]; [facility] Work Phone: Comment on above: please fax to Dr. Roseann Will [phone] Start: 08-10-2022 Immunofixj electrophoresis serum IMMUNOFIXATION ELECTROPHORESIS (48908) [facility]; [facility] Work Phone: Comment on above: please fax to Dr. Roseann Will [phone] Start: 08-10-2022 Protein electrophoretic fractj&quantj serum SPEP (53358) [facility]; [facility] Work Phone: Comment on above: please fax to Dr. Roseann Will [phone] Start: 08-10-2022 Protein xcpt refractometry serum plasma/whl bld PROTEIN, TOTAL, SERUM (54048) [facility]; [facility] Work Phone: Comment on above: please fax to Dr. Whitfield - Start: 08-09-2022 End: 08-09-2023 Cobalamin (Vitamin B12) [Mass/volume] in Serum or Plasma Vitamin B12 Lab Routine Sensorimotor neuropathy Other fatigue Expected: 08/09/2022 (Approximate), Expires: 08/09/2023 [facility] Comment on above: Expected: 08/09/2022 (Approximate), Expi res: 08/09/2023 Start: 08-09-2022 End: 08-09-2023 Thyrotropin [Units/volume] in Serum or Plasma TSH Lab Routine Sensorimotor neuropathy Other fatigue Expected: 08/09/2022 (Approximate), Expires: 08/09/2023 [facility] Comment on above: Expected: 08/09/2022 (Approximate), Expi res: 08/09/2023 Start: 08-09-2022 End: 08-09-2023 Vitamin B1 Vitamin B1 Lab Routine Sensorimotor neuropathy Other fatigue Expected: 08/09/2022 (Approximate), Expires: 08/09/2023 [facility] Work Phone: Comment on above: Expected: 08/09/2022 (Approximate), Expi res: 08/09/2023 Start: 08-09-2022 End: 08-09-2023 Vitamin B6 Vitamin B6 Lab Routine Sensorimotor neuropathy Other fatigue Expected: 08/09/2022 (Approximate), Expires: 08/09/2023 [facility] Comment on above: Expected: 08/09/2022 (Approximate), Expi res: 08/09/2023 Start: 07-09-2022 Procedure Education Eprescribed prescriptions (G8553) [facility]; [facility] Work Phone: Start: 07-09-2022 Hemoglobin glycosylated a1c HGB A1C (09219) [facility]; [facility] Work Phone: Start: 07-09-2022 Blood count complete auto&auto difrntl wbc CBC W/AUTO DIFF WBC (08762) [facility]; [facility] Work Phone: Start: 07-09-2022 Comprehensive metabolic panel METABOLIC PANEL, COMPREHENSIVE (84711) [facility]; [facility] Work Phone: Start: 07-09-2022 Lipid panel LIPID PANEL (07715) [facility]; [facility] Work Phone: Start: 07-09-2022 C-reactive protein high sensitivity C-REACT PROT HIGH SENS(hsCRP) (27213) [facility]; [facility] Work Phone: Start: 05-15-2022 INHOUSE COVID 19 (ONLY) RAPID (82284) INHOUSE COVID 19 (ONLY) RAPID (25898) [facility]; [facility] Work Phone: Start: 04-26-2022 Assay of prostate specific antigen total PSA (PROSTATE SPECIFIC ANTIGEN) (V76.44) [facility]; [facility] Work Phone: Start: 04-26-2022 25 hydroxy includes fractions if performed Vitamin D Hydroxy (28650) [facility]; [facility] Work Phone: Start: 04-26-2022 Urine albumin quantitative MICROALBUMIN: CREATININE RATIO (42964) AND (45889) [facility]; [facility] Work Phone: Start: 04-26-2022 Assay of free thyroxine T4, FREE (THYROXINE) (76077) [facility]; [facility] Work Phone: Start: 04-26-2022 Assay of triiodothyronine t3 free FREE TRIIDOTHYRONINE (T3) (47818) [facility]; [facility] Work Phone: Start: 04-26-2022 Cyanocobalamin vitamin b-12 VITAMIN B12 AND FOLATES (19284) [facility]; [facility] Work Phone: Start: 04-26-2022 Assay of calprotectin fecal Calprotectin, Fecal (62116) [facility]; [facility] Work Phone: Start: 04-26-2022 Assay of gammaglobulin iga igd igg igm each Celiac Disease Comphrehensive Profile (30220) [facility]; [facility] Work Phone: Start: 04-26-2022 Assay of thyroid stimulating hormone tsh TSH (06424) [facility]; [facility] Work Phone: Start: 04-26-2022 Blood count complete auto&auto difrntl wbc CBC W/AUTO DIFF WBC (23125) [facility]; [facility] Work Phone: Start: 04-26-2022 Comprehensive metabolic panel METABOLIC PANEL, COMPREHENSIVE (31816) [facility]; [facility] Work Phone: Start: 04-22-2022 Procedure Education Eprescribed prescriptions (G8553) [facility]; [facility] Work Phone: Start: 04-16-2022 Urine albumin quantitative MICROALBUMIN: CREATININE RATIO (79929) AND (83653) [facility]; [facility] Work Phone: Start: 04-16-2022 Assay of prostate specific antigen total PSA (PROSTATE SPECIFIC ANTIGEN) (74260) [facility]; [facility] Work Phone: Start: 04-16-2022 Assay of free thyroxine T4, FREE (THYROXINE) (30387) [facility]; [facility] Work Phone: Start: 04-16-2022 Assay of triiodothyronine t3 free FREE TRIIDOTHYRONINE (T3) (92342) [facility]; [facility] Work Phone: Start: 04-16-2022 Assay of thyroid stimulating hormone tsh TSH (05524) [facility]; [facility] Work Phone: Start: 04-16-2022 25 hydroxy includes fractions if performed Vitamin D Hydroxy (75821) [facility]; [facility] Work Phone: Start: 04-16-2022 Blood count complete auto&auto difrntl wbc CBC W/AUTO DIFF WBC (21638) [facility]; [facility] Work Phone: Start: 04-16-2022 Comprehensive metabolic panel METABOLIC PANEL, COMPREHENSIVE (36265) [facility]; [facility] Work Phone: Start: 04-16-2022 Assay of calprotectin fecal Calprotectin, Fecal (64990) [facility]; [facility] Work Phone: Start: 04-16-2022 Cyanocobalamin vitamin b-12 VITAMIN B12 AND FOLATES (21894) [facility]; [facility] Work Phone: Start: 04-09-2022 Culture bct isol&prsmptv id isolate ea urine URINE STEPHEN CULTURE-IDENTIFICATN (67007) [facility]; [facility] Work Phone: Start: 04-04-2022 Assay of thyroid stimulating hormone tsh TSH (THYROID STIMULATING HORMONE) (92352) [facility]; [facility] Work Phone: Comment on above: recheck in 8 weeks Start: 03-29-2022 Assay of calprotectin fecal Calprotectin, Fecal (40383) [facility]; [facility] Work Phone: Start: 03-26-2022 Antinuclear antibodies layla LAYLA (ANTINUCLEAR ANTIBODY) (39235) [facility]; [facility] Work Phone: Start: 03-26-2022 Assay of hydroxyindolacetic acid 5-hiaa HYDROXYINDOLACET ACID 5- (20838) [facility]; [facility] Work Phone: Comment on above: urine 24 hour Start: 03-26-2022 Assay of vanillylmandelic acid urine URINE VMA (56705) [facility]; [facility] Work Phone: Start: 03-26-2022 Complement antigen each component COMPLEMENT C4 (71154) [facility]; [facility] Work Phone: Start: 03-26-2022 Assay of thyroid stimulating hormone tsh TSH (THYROID STIMULATING HORMONE) (06238) [facility]; [facility] Work Phone: Start: 03-26-2022 Immunoassay analyte quantitative nos TRYPTASE (11808) [facility]; [facility] Work Phone: Start: 03-26-2022 Protein electrophoretic fractj&quantj serum SPEP (87535) [facility]; [facility] Work Phone: Start: 03-24-2022 [facility] Work Phone: Start: 03-24-2022 [facility] Work Phone: Start: 03-14-2022 Assay of thyroid stimulating hormone tsh TSH (50259) [facility]; [facility] Work Phone: Start: 03-14-2022 Assay of free thyroxine T4, FREE (THYROXINE) (30504) [facility]; [facility] Work Phone: Start: 03-14-2022 Assay of triiodothyronine t3 free T3, FREE (TRIDOTHYRONINE) (12134) [facility]; [facility] Work Phone: Start: 02-16-2022 C-reactive protein high sensitivity C-REACT PROT HIGH SENS(hsCRP) (20889) [facility]; [facility] Work Phone: Start: 02-16-2022 25 hydroxy includes fractions if performed CALCIFIDIOL (02146) VIT D 25 [facility]; [facility] Work Phone: Start: 02-16-2022 Assay of thyroid stimulating hormone tsh TSH (62774) [facility]; [facility] Work Phone: Start: 02-16-2022 Comprehensive metabolic panel METABOLIC PANEL, COMPREHENSIVE (37285) [facility]; [facility] Work Phone: Start: 02-16-2022 Blood count manual cell count each CBC with auto diff (69810) [facility]; [facility] Work Phone: Start: 02-15-2022 Influenza vaccination Influenza Vaccine (#1) [employer] Start: 05-31-2021 Procedure Education Eprescribed prescriptions (G8553) [facility]; [facility] Work Phone: Start: 12-22-2020 Cyclic citrullinated peptide antibody CCP ANTIBODY (79494) [facility]; [facility] Work Phone: Start: 12-22-2020 Sedimentation rate rbc non-automated SED RATE ERYTHROCYTE (93924) [facility]; [facility] Work Phone: Start: 12-22-2020 C-reactive protein C-REACTIVE PROTEIN (79104) [facility]; [facility] Work Phone: Start: 12-22-2020 Assay of thyroid stimulating hormone tsh TSH (39144) [facility]; [facility] Work Phone: Start: 12-22-2020 Rheumatoid factor quantitative RHEUMATOID FACTOR-QUANT (15043) [facility]; [facility] Work Phone: Start: 12-22-2020 Antinuclear antibodies layla LAYLA (ANTINUCLEAR ANTIBODY) (28005) [facility]; [facility] Work Phone: Start: 12-22-2020 Comprehensive metabolic panel METABOLIC PANEL, COMPREHENSIVE (29330) [facility]; [facility] Work Phone: Start: 12-22-2020 Blood count manual cell count each CBC with auto diff (57463) [facility]; [facility] Work Phone: Start: 11-22-2020 Provider Instructions for Treatment Laceration with Repair [facility]; [facility] Work Phone: Start: 09-14-2020 COVID-19 Vaccine (3 - Booster for Moderna series) COVID-19 Vaccine (3 - Booster for Moderna series) [facility] Start: 01-17-2020 Glaucoma screening Diabetes: Retinopathy Screening [facility] Start: 08-31-2019 25 hydroxy includes fractions if performed Vitamin D Hydroxy (92994) [facility] Work Phone: Start: 08-31-2019 Urine albumin quantitative MICROALBUMIN: CREATININE RATIO (06947) AND (07081) [facility] Work Phone: Start: 08-31-2019 Assay of prostate specific antigen total PSA (PROSTATE SPECIFIC ANTIGEN) (V76.44) [facility] Work Phone: Start: 08-31-2019 Assay of thyroid stimulating hormone tsh TSH (67482) [facility] Work Phone: Start: 08-31-2019 TSH Qn TSH (87756) [facility] Work Phone: Start: 08-31-2019 Comprehensive metabolic panel METABOLIC PANEL, COMPREHENSIVE (14165) [facility] Work Phone: Start: 08-07-2019 Assay of prostate specific antigen total PSA (PROSTATE SPECIFIC ANTIGEN) (16292) [facility] Work Phone: Start: 08-07-2019 Urine albumin quantitative MICROALBUMIN: CREATININE RATIO (77313) AND (94294) [facility] Work Phone: Start: 08-07-2019 25 hydroxy includes fractions if performed CALCIFEDIOL (01344) [facility] Work Phone: Start: 08-07-2019 HbA1c (Bld) [Mass fraction] HGB A1C (10102) [facility] Work Phone: Start: 08-07-2019 Hemoglobin glycosylated a1c HGB A1C (19592) [facility] Work Phone: Start: 08-07-2019 Lipid panel LIPID PANEL (13943) [facility] Work Phone: Start: 08-07-2019 Blood count complete automated CBC & PLATELETS (AUTO) (98087) [facility] Work Phone: Start: 08-07-2019 Comprehensive metabolic panel METABOLIC PANEL, COMPREHENSIVE (24619) [facility] Work Phone: Start: 01-12-2019 Cul bact xcpt urine blood/stool aerobic isol STEPHEN CULTURE-OTHER (26240) [facility] Work Phone: Start: 10-06-2017 Provider Instructions for Treatment trigger finger inn [facility] Work Phone: Start: 04-19-2017 Hemoglobin A1c/Hemoglobin.total mass fraction (Bld) HGB A1C (85815) [facility] Work Phone: Start: 04-19-2017 Hemoglobin glycosylated a1c HGB A1C (96118) [facility] Work Phone: Start: 04-19-2017 25 hydroxy includes fractions if performed CALCIFEDIOL (05735) [facility] Work Phone: Start: 04-19-2017 Organic acid 1 quantitative Methymalonic Acid, Serum (34451) [facility] Work Phone: Start: 04-19-2017 Cobalamin (Vitamin B12) mass conc Vitamin B-12 (cyanocobalamin) (02445) [facility] Work Phone: Start: 04-19-2017 Cyanocobalamin vitamin b-12 Vitamin B-12 (cyanocobalamin) (18939) [facility] Work Phone: Start: 04-19-2017 Assay of free thyroxine T4, FREE (THYROXINE) (87705) [facility] Work Phone: Start: 04-19-2017 T4 free mass conc T4, FREE (THYROXINE) (58734) [facility] Work Phone: Start: 04-19-2017 Assay of thyroid stimulating hormone tsh TSH (08530) [facility] Work Phone: Start: 04-19-2017 Thyrotropin Qn TSH (45328) [facility] Work Phone: Start: 11-19-2016 Provider Instructions for Treatment erection medication education [facility] Work Phone: Start: 11-25-2015 Patient Education Hypothyroidism: Brief Version *: hormone [facility] Work Phone: Start: 11-25-2015 Procedure Education Eprescribed prescriptions (G8553) [facility] Work Phone: Start: 09-06-2015 Gonadotropin follicle stimulating hormone FSH AND LH (80826) [facility] Work Phone: Start: 09-06-2015 Assay of testosterone free TESTOSTERONE FREE (50368) [facility] Work Phone: Start: 09-06-2015 Comprehensive metabolic panel METABOLIC PANEL, COMPREHENSIVE (73297) [facility] Work Phone: Start: 09-06-2015 Blood count manual cell count each CBC with auto diff (21561) [facility] Work Phone: Start: 09-06-2015 Assay of thyroid stimulating hormone tsh TSH (87662) [facility] Work Phone: Start: 09-06-2015 Thyrotropin Qn TSH (29090) [facility] Work Phone: Start: 2015 Zoster Vaccines (1 of 2) Zoster Vaccines (1 of 2) [facility] Start: 03-25-2015 Procedure Education Eprescribed prescriptions (G8553) [facility] Work Phone: Start: 01-25-2015 Hemoglobin A1c/Hemoglobin.total mass fraction (Bld) Hemoglobin Glyclated (HGB A1C) (77018) [facility] Work Phone: Start: 01-25-2015 Hemoglobin glycosylated a1c Hemoglobin Glyclated (HGB A1C) (44408) [facility] Work Phone: Start: 01-25-2015 Assay of prostate specific antigen total PSA (PROSTATE SPECIFIC ANTIGEN) (V76.44) [facility] Work Phone: Start: 01-25-2015 Protein mass conc PSA (PROSTATE SPECIFIC ANTIGEN) (V76.44) [facility] Work Phone: Start: 01-25-2015 Assay of free thyroxine T4, FREE (THYROXINE) (62094) [facility] Work Phone: Start: 01-25-2015 T4 free mass conc T4, FREE (THYROXINE) (63279) [facility] Work Phone: Start: 01-25-2015 Assay of thyroid stimulating hormone tsh TSH (50734) [facility] Work Phone: Start: 01-25-2015 Thyrotropin Qn TSH (36246) [facility] Work Phone: Start: 01-25-2015 25 hydroxy includes fractions if performed CALCIFIDIOL (48084) VIT D 25 [facility] Work Phone: Start: 01-25-2015 Comprehensive metabolic panel METABOLIC PANEL, COMPREHENSIVE (60974) [facility] Work Phone: Start: 01-25-2015 Lipid panel LIPID PANEL (28190) [facility] Work Phone: Start: 01-25-2015 Blood count manual cell count each CBC with auto diff (04564) [facility] Work Phone: Start: 01-31-2014 Provider Instructions for Treatment Euflexxa injection [facility] Work Phone: Start: 11-18-2012 Provider Instructions for Treatment Euflexxa injection [facility] Work Phone: Start: 10-30-2012 Provider Instructions for Treatment Euflexxa injection [facility] Work Phone: Start: 03-06-2012 Urine albumin quantitative MICROALBUMIN: CREATININE RATIO (06071) AND (08696) [facility] Work Phone: Start: 03-06-2012 Lipid panel LIPID PANEL (23776) [facility] Work Phone: Start: 06-15-2009 Provider Instructions for Treatment Euflexxa injection [facility] Work Phone: Start: 05-24-2009 Provider Instructions for Treatment Eufflexa [facility] Work Phone: Start: 1984 DTaP/Tdap/Td Vaccines (1 - Tdap) DTaP/Tdap/Td Vaccines (1 - Tdap) [facility] Start: 1984 Urine screening for protein Diabetes: Urine Protein Screening [facility] Start: 1983 Hepatitis C screening Hepatitis C Screening [facility] Start: 1975 Diabetic foot examination Diabetes: Foot Exam [facility] Start: 1975 Preventive dental service Diabetes: Dental Exam [facility] Start: 1966 MMR Vaccines (1 of 1 - Standard series) MMR Vaccines (1 of 1 - Standard series) [facility] Start: 1965 Hemoglobin A1c measurement Diabetes: Hemoglobin A1C [facility] Start: 1965 Hepatitis B Vaccines (1 of 3 - 3-dose series) Hepatitis B Vaccines (1 of 3 - 3-dose series) [facility] Start: 1965 HIV screening HIV Screening [facility] Start: 1965 Lipid panel Lipid Panel [facility] Start: 1965 Screening for malignant neoplasm of colon [facility] Start: 1965 Thyroid stimulating hormone measurement TSH Level [facility] Colonoscopy [facility] Herpes simplex virus 1+2 DNA [Presence] in Unspecified specimen by TYSON with probe detection [facility] Work Phone: Herpes simplex virus DNA assay [facility] Work Phone: IgG, IgA, IgM IgG, IgA, IgM La b Routine Sensorimotor neuropathy Other fatigue Ordered: [facility]09[facility]20[facility] Comment on above: Ordered: 08/09/2022 Immunofixation Electrophoresis Immunofixation Electrophoresis Lab Routine Sensorimotor neuropathy Other fatigue Ordered: 08/09/2022 [facility] Comment on above: Ordered: 08/09/2022 Immunofixation Electrophoresis Immunofixation Electrophoresis Lab Routine Sensorimotor neuropathy Other fatigue Ordered: 08/09/2022 [facility] Comment on above: Ordered: 08/09/2022 Patient referral [facility] Work Phone: Protein [Mass/volume ] in Serum or Plasma Protein, total Lab Routine Sensorimotor neuropathy Other fatigue Ordered: 08/09/2022 [facility] Comment on above: Ordered: 08/09/2022 Protein Electrophore sis, Serum Protein Electrophoresis, Serum Lab Routine Sensorimotor neuropathy Other fatigue Ordered: 08/09/2022 [facility] Comment on above: Ordered: 08/09/2022 Serum Electrophoresis Serum Elec trophoresis Lab Routine Sensorimotor neuropathy Other fatigue Ordered: 08/09/2022 [facility] Comment on above: Ordered: 08/09/2022 Streptococcus pyogen es antigen assay Group A Streptococcus Rapid Screen [facility] Work Phone: [facility] Work Phone: [facility] Work Phone: [facility] Work Phone: [facility] Work Phone: [facility] Work Phone: [facility] Work Phone[facility] Work Phone[facility] Work Phone: [facility] Work Phone[facility] Work Phone: [facility] Work Phone: [facility] Work Phone: [facility] Work Phone: [facility] Work Phone: [facility] Work Phone: [facility] Work Phone: [facility] Work Phone: [facility] Work Phone: [facility] Work Phone: [facility] Work Phone: [facility] Work Phone[facility] Work Phone[facility] Work Phone[facility] Work Phone: [facility]; [facility] Work Phone: [facility]; [facility] Work Phone: [facility]; [facility] Work Phone: [facility]; [facility] Work Phone: [facility]; [facility] Work Phone: [facility]; [facility] Work Phone: [facility] Work Phone: [facility] Work Phone: [facility] Work Phone: [facility] Work Phone: [facility]; [facility] Work Phone: [facility]; [facility] Work Phone: [facility]; [facility] Work Phone: [facility]; [facility] Work Phone: [facility]; [facility] Work Phone: [facility]; [facility] Work Phone: Payers Date Payer Category Payer Self-pay [id number] 2020 Unknown [id number] 2019 [id number] 2007 Unknown 2006 Private Health Insurance [id number] 1965 Unknown [id number] Unknown [id number] Unknown [id number] Unknown [id number] [id number] Unknown [id number] [id number] [id number] Unknown [id number] [id number] [id number] Unknown [id number] [id number] [id number] Social History Date Type Detail Facility Current Work/Study Status [facility] Work Phone: 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 live with and f amairani arreolaray Start: 05-18-2021 End: 08-23-2022 Tobacco smoking status NHIS Unknown if ever smoked [facility] Start: 08-03-2019 None [facility] Start: 08-03-2019 Spouse/ Signif icant Other [facility] Start: 08-25-2019 Non-smoker [facility] Start: 1965 Sex Assigned At Male [facility] Start: 08-09-2022 End: 12-26-2023 Tobacco smoking status NHIS Never smoked tobacco [facility] Start: 08-09-2022 Tobacco use and exposure Smokeless tobacco non-user [facility] Start: 1965 Sex Assigned At Not on file [facility] Start: 07-30-2022 End: 08-09-2022 Exposure to SARS-CoV-2 (event) Not sure [facility] Sex Male [facility] Medical Equipment Procedure Code Equipment Code Equipment Origin al Text Equipment Identifier Dates Cool Blood Gluco se Test Strips In Vitro Strip 1 (one) Strip check blood sugar 6 times a day for 90 days Quantity: 540 {Strip} Refills: 5 Ordered: 16-Sep-2017 Julio Padron MD Start : 16-Sep-2017 Active Comments: he uses one touch and relion strips Start: 09-16-2017 Comment on above: he uses one touch an d relion strips Cool Blood Gluco se Test Strips In Vitro Strip 1 (one) Strip check blood sugar 6 times a day for 90 days Quantity: 540 {Strip} Refills: 5 Ordered: 16-Sep-2017 Julio Padron MD Start : 16-Sep-2017 Active Comments: he uses one touch and relion strips Start: 09-16-2017 Comment on above: he uses one touch an d relion strips Cool Blood Gluco se Test Strips In Vitro Strip 1 (one) Strip check blood sugar 6 times a day for 90 days Quantity: 540 {Strip} Refills: 5 Ordered: 16-Sep-2017 Julio Padron MD Start : 16-Sep-2017 Active Comments: he uses one touch and relion strips Start: 09-16-2017 Comment on above: he uses one touch an d relion strips Cool Blood Gluco se Test Strips In Vitro Strip 1 (one) Strip check blood sugar 6 times a day for 90 days Quantity: 540 {Strip} Refills: 5 Ordered: 16-Sep-2017 Julio Padron MD Start : 16-Sep-2017 Active Comments: he uses one touch and relion strips Start: 09-16-2017 Comment on above: he uses one touch an d relion strips Cool Blood Gluco se Test Strips In Vitro Strip 1 (one) Strip check blood sugar 6 times a day for 90 days Quantity: 540 {Strip} Refills: 5 Ordered: 16-Sep-2017 Julio Padron MD Start : 16-Sep-2017 Active Comments: he uses one touch and relion strips Start: 09-16-2017 Comment on above: he uses one touch an d relion strips Cool Blood Gluco se Test Strips In Vitro Strip 1 (one) Strip check blood sugar 6 times a day for 90 days Quantity: 540 {Strip} Refills: 5 Ordered: 16-Sep-2017 Julio Padron MD Start : 16-Sep-2017 Active Comments: he uses one touch and relion strips Start: 09-16-2017 Comment on above: he uses one touch an d relion strips Cool Blood Gluco se Test Strips In Vitro Strip 1 (one) Strip check blood sugar 6 times a day for 90 days Quantity: 540 {Strip} Refills: 5 Ordered: 16-Sep-2017 Julio Padron MD Start : 16-Sep-2017 Active Comments: he uses one touch and relion strips Start: 09-16-2017 Comment on above: he uses one touch an d relion strips Cool Blood Gluco se Test Strips In Vitro Strip 1 (one) Strip check blood sugar 6 times a day for 90 days Quantity: 540 {Strip} Refills: 5 Ordered: 16-Sep-2017 Julio Padron MD Start : 16-Sep-2017 Active Comments: he uses one touch and relion strips Start: 09-16-2017 Comment on above: he uses one touch an d relion strips Cool Blood Gluco se Test Strips In Vitro Strip 1 (one) Strip check blood sugar 6 times a day for 90 days Quantity: 540 {Strip} Refills: 5 Ordered: 16-Sep-2017 Julio Padron MD Start : 16-Sep-2017 Active Comments: he uses one touch and relion strips Start: 09-16-2017 Comment on above: he uses one touch an d relion strips Cool Blood Gluco se Test Strips In Vitro Strip 1 (one) Strip check blood sugar 6 times a day for 90 days Quantity: 540 {Strip} Refills: 5 Ordered: 16-Sep-2017 Julio Padron MD Start : 16-Sep-2017 Active Comments: he uses one touch and relion strips Start: 09-16-2017 Comment on above: he uses one touch an d relion strips Cool Blood Gluco se Test Strips In Vitro Strip 1 (one) Strip check blood sugar 6 times a day for 90 days Quantity: 540 {Strip} Refills: 5 Ordered: 16-Sep-2017 Julio Padron MD Start : 16-Sep-2017 Active Comments: he uses one touch and relion strips Start: 09-16-2017 Comment on above: he uses one touch an d relion strips Cool Blood Gluco se Test Strips In Vitro Strip 1 (one) Strip check blood sugar 6 times a day for 90 days Quantity: 540 {Strip} Refills: 5 Ordered: 16-Sep-2017 Julio Padron MD Start : 16-Sep-2017 Active Comments: he uses one touch and relion strips Start: 09-16-2017 Comment on above: he uses one touch an d relion strips Cool Blood Gluco se Test Strips In Vitro Strip 1 (one) Strip check blood sugar 6 times a day for 90 days Quantity: 540 {Strip} Refills: 5 Ordered: 16-Sep-2017 Fast DO, Estuardo A Fast DO, Estuardo A Start : 16-Sep-2017 Active Comments: he uses one touch and relion strips Start: 09-16-2017 Comment on above: he uses one touch an d relion strips Cool Blood Gluco se Test Strips In Vitro Strip 1 (one) Strip check blood sugar 6 times a day for 90 days Quantity: 540 {Strip} Refills: 5 Ordered: 16-Sep-2017 Fast DO, Estuardo A Fast DO, Estuardo A Start : 16-Sep-2017 Active Comments: he uses one touch and relion strips Start: 09-16-2017 Comment on above: he uses one touch an d relion strips Cool Blood Gluco se Test Strips In Vitro Strip 1 (one) Strip check blood sugar 6 times a day for 90 days Quantity: 540 {Strip} Refills: 5 Ordered: 16-Sep-2017 Fast DO, Estuardo A Fast DO, Estuardo A Start : 16-Sep-2017 Active Comments: he uses one touch and relion strips Start: 09-16-2017 Comment on above: he uses one touch an d relion strips Cool Blood Gluco se Test Strips In Vitro Strip 1 (one) Strip check blood sugar 6 times a day for 90 days Quantity: 540 {Strip} Refills: 5 Ordered: 16-Sep-2017 Fast DO, Estuardo A Fast DO, Estuardo A Start : 16-Sep-2017 Active Comments: he uses one touch and relion strips Start: 09-16-2017 Comment on above: he uses one touch an d relion strips Cool Blood Gluco se Test Strips In Vitro Strip 1 (one) Strip check blood sugar 6 times a day for 90 days Quantity: 540 {Strip} Refills: 5 Ordered: 16-Sep-2017 Fast DO, Estuardo A Fast DO, Estuardo A Start : 16-Sep-2017 Active Comments: he uses one touch and relion strips Start: 09-16-2017 Comment on above: he uses one touch an d relion strips Cool Blood Gluco se Test Strips In Vitro Strip 1 (one) Strip check blood sugar 6 times a day for 90 days Quantity: 540 {Strip} Refills: 5 Ordered: 16-Sep-2017 Fast DO, Estuardo A Fast DO, Estuardo A Start : 16-Sep-2017 Active Comments: he uses one touch and relion strips Start: 09-16-2017 Comment on above: he uses one touch an d relion strips Cool Blood Gluco se Test Strips In Vitro Strip 1 (one) Strip check blood sugar 6 times a day for 90 days Quantity: 540 {Strip} Refills: 5 Ordered: 16-Sep-2017 Fast DO, Estuardo A Fast DO, Estuardo A Start : 16-Sep-2017 Active Comments: he uses one touch and relion strips Start: 09-16-2017 Comment on above: he uses one touch an d relion strips Cool Blood Gluco se Test Strips In Vitro Strip 1 (one) Strip check blood sugar 6 times a day for 90 days Quantity: 540 {Strip} Refills: 5 Ordered: 16-Sep-2017 Fast DO, Estuardo A Fast DO, Estuardo A Start : 16-Sep-2017 Active Comments: he uses one touch and relion strips Start: 09-16-2017 Comment on above: he uses one touch an d relion strips Cool Blood Gluco se Test Strips In Vitro Strip 1 (one) Strip check blood sugar 6 times a day for 90 days Quantity: 540 {Strip} Refills: 5 Ordered: 16-Sep-2017 Fast DO, Estuardo A Fast DO, Estuardo A Start : 16-Sep-2017 Active Comments: he uses one touch and relion strips Start: 09-16-2017 Comment on above: he uses one touch an d relion strips Cool Blood Gluco se Test Strips In Vitro Strip 1 (one) Strip check blood sugar 6 times a day for 90 days Quantity: 540 {Strip} Refills: 5 Ordered: 16-Sep-2017 Albert REYEZ, Julio García Start : 16-Sep-2017 Active Comments: he uses one touch and relion strips Start: 09-16-2017 Comment on above: he uses one touch an d relion strips Cool Blood Gluco se Test Strips In Vitro Strip 1 (one) Strip check blood sugar 6 times a day for 90 days Quantity: 540 {Strip} Refills: 5 Ordered: 16-Sep-2017 Fast DO, Estuardo A Fast DO, Estuardo A Start : 16-Sep-2017 Active Comments: he uses one touch and relion strips Start: 09-16-2017 Comment on above: he uses one touch an d relion strips Cool Blood Gluco se Test Strips In Vitro Strip 1 (one) Strip check blood sugar 6 times a day for 90 days Quantity: 540 {Strip} Refills: 5 Ordered: 16-Sep-2017 Fast DO, Estuardo A Fast DO, Estuardo A Start : 16-Sep-2017 Active Comments: he uses one touch and relion strips Start: 09-16-2017 Comment on above: he uses one touch an d relion strips Cool Blood Gluco se Test Strips In Vitro Strip 1 (one) Strip check blood sugar 6 times a day for 90 days Quantity: 540 {Strip} Refills: 5 Ordered: 16-Sep-2017 Fast DO, Estuardo A Fast DO, Estuardo A Start : 16-Sep-2017 Active Comments: he uses one touch and relion strips Start: 09-16-2017 Comment on above: he uses one touch an d relion strips Cool Blood Gluco se Test Strips In Vitro Strip 1 (one) Strip check blood sugar 6 times a day for 90 days Quantity: 540 {Strip} Refills: 5 Ordered: 16-Sep-2017 Fast DO, Estuardo A Fast DO, Estuardo A Start : 16-Sep-2017 Active Comments: he uses one touch and relion strips Start: 09-16-2017 Comment on above: he uses one touch an d relion strips Cool Blood Gluco se Test Strips In Vitro Strip 1 (one) Strip check blood sugar 6 times a day for 90 days Quantity: 540 {Strip} Refills: 5 Ordered: 16-Sep-2017 Fast DO, Estuardo A Fast DO, Estuardo A Start : 16-Sep-2017 Active Comments: he uses one touch and relion strips Start: 09-16-2017 Comment on above: he uses one touch an d relion strips Cool Blood Gluco se Test Strips In Vitro Strip 1 (one) Strip check blood sugar 6 times a day for 90 days Quantity: 540 {Strip} Refills: 5 Ordered: 16-Sep-2017 Julio Padron MD Start : 16-Sep-2017 Active Comments: he uses one touch and relion strips Start: 09-16-2017 Comment on above: he uses one touch an d relion strips Cool Blood Gluco se Test Strips In Vitro Strip 1 (one) Strip check blood sugar 6 times a day for 90 days Quantity: 540 {Strip} Refills: 5 Ordered: 16-Sep-2017 Julio Padron MD Start : 16-Sep-2017 Active Comments: he uses one touch and relion strips Start: 09-16-2017 Comment on above: he uses one touch an d relion strips Cool Blood Gluco se Test Strips In Vitro Strip 1 (one) Strip check blood sugar 6 times a day for 90 days Quantity: 540 {Strip} Refills: 5 Ordered: 16-Sep-2017 Julio Padron MD Start : 16-Sep-2017 Active Comments: he uses one touch and relion strips Start: 09-16-2017 Comment on above: he uses one touch an d relion strips Cool Blood Gluco se Test Strips In Vitro Strip 1 (one) Strip check blood sugar 6 times a day for 90 days Quantity: 540 {Strip} Refills: 5 Ordered: 16-Sep-2017 Fast DO, Estuardo A Fast DO, Estuardo A Start : 16-Sep-2017 Active Comments: he uses one touch and relion strips Start: 09-16-2017 Comment on above: he uses one touch an d relion strips Cool Blood Gluco se Test Strips In Vitro Strip 1 (one) Strip check blood sugar 6 times a day for 90 days Quantity: 540 {Strip} Refills: 5 Ordered: 16-Sep-2017 Fast DO, Estuardo A Fast DO, Estuardo A Start : 16-Sep-2017 Active Comments: he uses one touch and relion strips Start: 09-16-2017 Comment on above: he uses one touch an d relion strips Cool Blood Gluco se Test Strips In Vitro Strip 1 (one) Strip check blood sugar 6 times a day for 90 days Quantity: 540 {Strip} Refills: 5 Ordered: 16-Sep-2017 Fast DO, Estuardo A Fast DO, Estuardo A Start : 16-Sep-2017 Active Comments: he uses one touch and relion strips Start: 09-16-2017 Comment on above: he uses one touch an d relion strips Cool Blood Gluco se Test Strips In Vitro Strip 1 (one) Strip check blood sugar 6 times a day for 90 days Quantity: 540 {Strip} Refills: 5 Ordered: 16-Sep-2017 Fast DO, Estuardo A Fast DO, Estuardo A Start : 16-Sep-2017 Active Comments: he uses one touch and relion strips Start: 09-16-2017 Comment on above: he uses one touch an d relion strips Cool Blood Gluco se Test Strips In Vitro Strip 1 (one) Strip check blood sugar 6 times a day for 90 days Quantity: 540 {Strip} Refills: 5 Ordered: 16-Sep-2017 Fast DO, Estuardo A Fast DO, Estuardo A Start : 16-Sep-2017 Active Comments: he uses one touch and relion strips Start: 09-16-2017 Comment on above: he uses one touch an d relion strips Cool Blood Gluco se Test Strips In Vitro Strip 1 (one) Strip check blood sugar 6 times a day for 90 days Quantity: 540 {Strip} Refills: 5 Ordered: 16-Sep-2017 Fast DO, Estuardo A Fast DO, Estuardo A Start : 16-Sep-2017 Active Comments: he uses one touch and relion strips Start: 09-16-2017 Comment on above: he uses one touch an d relion strips Cool Blood Gluco se Test Strips In Vitro Strip 1 (one) Strip check blood sugar 6 times a day for 90 days Quantity: 540 {Strip} Refills: 5 Ordered: 16-Sep-2017 Fast DO, Estuardo A Fast DO, Estuardo A Start : 16-Sep-2017 Active Comments: he uses one touch and relion strips Start: 09-16-2017 Comment on above: he uses one touch an d relion strips Cool Blood Gluco se Test Strips In Vitro Strip 1 (one) Strip check blood sugar 6 times a day for 90 days Quantity: 540 {Strip} Refills: 5 Ordered: 16-Sep-2017 Fast DO, Estuardo A Fast DO, Estuardo A Start : 16-Sep-2017 Active Comments: he uses one touch and relion strips Start: 09-16-2017 Comment on above: he uses one touch an d relion strips Cool Blood Gluco se Test Strips In Vitro Strip 1 (one) Strip check blood sugar 6 times a day for 90 days Quantity: 540 {Strip} Refills: 5 Ordered: 16-Sep-2017 Fast DO, Estuardo A Fast DO, Estuardo A Start : 16-Sep-2017 Active Comments: he uses one touch and relion strips Start: 09-16-2017 Comment on above: he uses one touch an d relion strips Cool Blood Gluco se Test Strips In Vitro Strip 1 (one) Strip check blood sugar 6 times a day for 90 days Quantity: 540 {Strip} Refills: 5 Ordered: 16-Sep-2017 Fast DO, Estuardo A Fast DO, Estuardo A Start : 16-Sep-2017 Active Comments: he uses one touch and relion strips Start: 09-16-2017 Comment on above: he uses one touch an d relion strips Cool Blood Gluco se Test Strips In Vitro Strip 1 (one) Strip check blood sugar 6 times a day for 90 days Quantity: 540 {Strip} Refills: 5 Ordered: 16-Sep-2017 Fast DO, Estuardo A Fast DO, Estuardo A Start : 16-Sep-2017 Active Comments: he uses one touch and relion strips Start: 09-16-2017 Comment on above: he uses one touch an d relion strips Cool Blood Gluco se Test Strips In Vitro Strip 1 (one) Strip check blood sugar 6 times a day for 90 days Quantity: 540 {Strip} Refills: 5 Ordered: 16-Sep-2017 Fast DO, Estuardo A Fast DO, Estuardo A Start : 16-Sep-2017 Active Comments: he uses one touch and relion strips Start: 09-16-2017 Comment on above: he uses one touch an d relion strips Cool Blood Gluco se Test Strips In Vitro Strip 1 (one) Strip check blood sugar 6 times a day for 90 days Quantity: 540 {Strip} Refills: 5 Ordered: 16-Sep-2017 Fast DO, Estuardo A Fast DO, Estuardo A Start : 16-Sep-2017 Active Comments: he uses one touch and relion strips Start: 09-16-2017 Comment on above: he uses one touch an d relion strips Cool Blood Gluco se Test Strips In Vitro Strip 1 (one) Strip check blood sugar 6 times a day for 90 days Quantity: 540 {Strip} Refills: 5 Ordered: 16-Sep-2017 Fast DO, Estuardo A Fast DO, Estuardo A Start : 16-Sep-2017 Active Comments: he uses one touch and relion strips Start: 09-16-2017 Comment on above: he uses one touch an d relion strips Cool Blood Gluco se Test Strips In Vitro Strip 1 (one) Strip check blood sugar 6 times a day for 90 days Quantity: 540 {Strip} Refills: 5 Ordered: 16-Sep-2017 Fast DO, Estuardo A Fast DO, Estuardo A Start : 16-Sep-2017 Active Comments: he uses one touch and relion strips Start: 09-16-2017 Comment on above: he uses one touch an d relion strips Cool Blood Gluco se Test Strips In Vitro Strip 1 (one) Strip check blood sugar 6 times a day for 90 days Quantity: 540 {Strip} Refills: 5 Ordered: 16-Sep-2017 Fast DO, Estuardo A Fast DO, Estuardo A Start : 16-Sep-2017 Active Comments: he uses one touch and relion strips Start: 09-16-2017 Comment on above: he uses one touch an d relion strips Cool Blood Gluco se Test Strips In Vitro Strip 1 (one) Strip check blood sugar 6 times a day for 90 days Quantity: 540 {Strip} Refills: 5 Ordered: 16-Sep-2017 Fast DO, Estuardo A Fast DO, Estuardo A Start : 16-Sep-2017 Active Comments: he uses one touch and relion strips Start: 09-16-2017 Comment on above: he uses one touch an d relion strips Cool Blood Gluco se Test Strips In Vitro Strip 1 (one) Strip check blood sugar 6 times a day for 90 days Quantity: 540 {Strip} Refills: 5 Ordered: 16-Sep-2017 Fast DO, Estuardo A Fast DO, Estuardo A Start : 16-Sep-2017 Active Comments: he uses one touch and relion strips Start: 09-16-2017 Comment on above: he uses one touch an d relion strips Cool Blood Gluco se Test Strips In Vitro Strip 1 (one) Strip check blood sugar 6 times a day for 90 days Quantity: 540 {Strip} Refills: 5 Ordered: 16-Sep-2017 Fast DO, Estuardo A Fast DO, Estuardo A Start : 16-Sep-2017 Active Comments: he uses one touch and relion strips Start: 09-16-2017 Comment on above: he uses one touch an d relion strips Cool Blood Gluco se Test Strips In Vitro Strip 1 (one) Strip check blood sugar 6 times a day for 90 days Quantity: 540 {Strip} Refills: 5 Ordered: 16-Sep-2017 Fast DO, Estuardo A Fast DO, Estuardo A Start : 16-Sep-2017 Active Comments: he uses one touch and relion strips Start: 09-16-2017 Comment on above: he uses one touch an d relion strips Cool Blood Gluco se Test Strips In Vitro Strip 1 (one) Strip check blood sugar 6 times a day for 90 days Quantity: 540 {Strip} Refills: 5 Ordered: 16-Sep-2017 Fast DO, Estuardo A Fast DO, Estuardo A Start : 16-Sep-2017 Active Comments: he uses one touch and relion strips Start: 09-16-2017 Comment on above: he uses one touch an d relion strips Cool Blood Gluco se Test Strips In Vitro Strip 1 (one) Strip check blood sugar 6 times a day for 90 days Quantity: 540 {Strip} Refills: 5 Ordered: 16-Sep-2017 Fast DO, Estuardo A Fast DO, Estuardo A Start : 16-Sep-2017 Active Comments: he uses one touch and relion strips Start: 09-16-2017 Comment on above: he uses one touch an d relion strips Cool Blood Gluco se Test Strips In Vitro Strip 1 (one) Strip check blood sugar 6 times a day for 90 days Quantity: 540 {Strip} Refills: 5 Ordered: 16-Sep-2017 Fast DO, Estuardo A Fast DO, Estuardo A Start : 16-Sep-2017 Active Comments: he uses one touch and relion strips Start: 09-16-2017 Comment on above: he uses one touch an d relion strips Cool Blood Gluco se Test Strips In Vitro Strip 1 (one) Strip check blood sugar 6 times a day for 90 days Quantity: 540 {Strip} Refills: 5 Ordered: 16-Sep-2017 Fast DO, Estuardo A Fast DO, Estuardo A Start : 16-Sep-2017 Active Comments: he uses one touch and relion strips Start: 09-16-2017 Comment on above: he uses one touch an d relion strips Cool Blood Gluco se Test Strips In Vitro Strip 1 (one) Strip check blood sugar 6 times a day for 90 days Quantity: 540 {Strip} Refills: 5 Ordered: 16-Sep-2017 Fast DO, Estuardo A Fast DO, Estuardo A Start : 16-Sep-2017 Active Comments: he uses one touch and relion strips Start: 09-16-2017 Comment on above: he uses one touch an d relion strips Cool Blood Gluco se Test Strips In Vitro Strip 1 (one) Strip check blood sugar 6 times a day for 90 days Quantity: 540 {Strip} Refills: 5 Ordered: 16-Sep-2017 Fast DO, Estuardo A Fast DO, Estuardo A Start : 16-Sep-2017 Active Comments: he uses one touch and relion strips Start: 09-16-2017 Comment on above: he uses one touch an d relion strips Cool Blood Gluco se Test Strips In Vitro Strip 1 (one) Strip check blood sugar 6 times a day for 90 days Quantity: 540 {Strip} Refills: 5 Ordered: 16-Sep-2017 Fast DO, Estuardo A Fast DO, Estuardo A Start : 16-Sep-2017 Active Comments: he uses one touch and relion strips Start: 09-16-2017 Comment on above: he uses one touch an d relion strips Cool Blood Gluco se Test Strips In Vitro Strip 1 (one) Strip check blood sugar 6 times a day for 90 days Quantity: 540 {Strip} Refills: 5 Ordered: 16-Sep-2017 Fast DO, Estuardo A Fast DO, Estuardo A Start : 16-Sep-2017 Active Comments: he uses one touch and relion strips Start: 09-16-2017 Comment on above: he uses one touch an d relion strips Cool Blood Gluco se Test Strips In Vitro Strip 1 (one) Strip check blood sugar 6 times a day for 90 days Quantity: 540 {Strip} Refills: 5 Ordered: 16-Sep-2017 Fast DO, Estuardo A Fast DO, Estuardo A Start : 16-Sep-2017 Active Comments: he uses one touch and relion strips Start: 09-16-2017 Comment on above: he uses one touch an d relion strips Cool Blood Gluco se Test Strips In Vitro Strip 1 (one) Strip check blood sugar 6 times a day for 90 days Quantity: 540 {Strip} Refills: 5 Ordered: 16-Sep-2017 Fast DO, Estuardo A Fast DO, Estuardo A Start : 16-Sep-2017 Active Comments: he uses one touch and relion strips Start: 09-16-2017 Comment on above: he uses one touch an d relion strips Cool Blood Gluco se Test Strips In Vitro Strip 1 (one) Strip check blood sugar 6 times a day for 90 days Quantity: 540 {Strip} Refills: 5 Ordered: 16-Sep-2017 Fast DO, Estuardo A Fast DO, Estuardo A Start : 16-Sep-2017 Active Comments: he uses one touch and relion strips Start: 09-16-2017 Comment on above: he uses one touch an d relion strips Cool Blood Gluco se Test Strips In Vitro Strip 1 (one) Strip check blood sugar 6 times a day for 90 days Quantity: 540 {Strip} Refills: 5 Ordered: 16-Sep-2017 Fast DO, Estuardo A Fast DO, Estuardo A Start : 16-Sep-2017 Active Comments: he uses one touch and relion strips Start: 09-16-2017 Comment on above: he uses one touch an d relion strips Cool Blood Gluco se Test Strips In Vitro Strip 1 (one) Strip check blood sugar 6 times a day for 90 days Quantity: 540 {Strip} Refills: 5 Ordered: 16-Sep-2017 Fast DO, Estuardo A Fast DO, Estuardo A Start : 16-Sep-2017 Active Comments: he uses one touch and relion strips Start: 09-16-2017 Comment on above: he uses one touch an d relion strips Cool Blood Gluco se Test Strips In Vitro Strip 1 (one) Strip check blood sugar 6 times a day for 90 days Quantity: 540 {Strip} Refills: 5 Ordered: 16-Sep-2017 Fast DO, Estuardo A Fast DO, Estuardo A Start : 16-Sep-2017 Active Comments: he uses one touch and relion strips Start: 09-16-2017 Comment on above: he uses one touch an d relion strips Cool Blood Gluco se Test Strips In Vitro Strip 1 (one) Strip check blood sugar 6 times a day for 90 days Quantity: 540 {Strip} Refills: 5 Ordered: 16-Sep-2017 Fast DO, Estuardo A Fast DO, Estuardo A Start : 16-Sep-2017 Active Comments: he uses one touch and relion strips Start: 09-16-2017 Comment on above: he uses one touch an d relion strips Cool Blood Gluco se Test Strips In Vitro Strip 1 (one) Strip check blood sugar 6 times a day for 90 days Quantity: 540 {Strip} Refills: 5 Ordered: 16-Sep-2017 Fast DO, Estuardo A Fast DO, Estuardo A Start : 16-Sep-2017 Active Comments: he uses one touch and relion strips Start: 09-16-2017 Comment on above: he uses one touch an d relion strips Cool Blood Gluco se Test Strips In Vitro Strip 1 (one) Strip check blood sugar 6 times a day for 90 days Quantity: 540 {Strip} Refills: 5 Ordered: 16-Sep-2017 Fast DO, Estuardo A Fast DO, Estuardo A Start : 16-Sep-2017 Active Comments: he uses one touch and relion strips Start: 09-16-2017 Comment on above: he uses one touch an d relion strips Cool Blood Gluco se Test Strips In Vitro Strip 1 (one) Strip check blood sugar 6 times a day for 90 days Quantity: 540 {Strip} Refills: 5 Ordered: 16-Sep-2017 Fast DO, Estuardo A Fast DO, Estuardo A Start : 16-Sep-2017 Active Comments: he uses one touch and relion strips Start: 09-16-2017 Comment on above: he uses one touch an d relion strips Cool Blood Gluco se Test Strips In Vitro Strip 1 (one) Strip check blood sugar 6 times a day for 90 days Quantity: 540 {Strip} Refills: 5 Ordered: 16-Sep-2017 Fast DO, Estuardo A Fast DO, Estuardo A Start : 16-Sep-2017 Active Comments: he uses one touch and relion strips Start: 09-16-2017 Comment on above: he uses one touch an d relion strips Cool Blood Gluco se Test Strips In Vitro Strip 1 (one) Strip check blood sugar 6 times a day for 90 days Quantity: 540 {Strip} Refills: 5 Ordered: 16-Sep-2017 Fast DO, Estuardo A Fast DO, Estuardo A Start : 16-Sep-2017 Active Comments: he uses one touch and relion strips Start: 09-16-2017 Comment on above: he uses one touch an d relion strips Cool Blood Gluco se Test Strips In Vitro Strip 1 (one) Strip check blood sugar 6 times a day for 90 days Quantity: 540 {Strip} Refills: 5 Ordered: 16-Sep-2017 Fast DO, Estuardo A Fast DO, Estuardo A Start : 16-Sep-2017 Active Comments: he uses one touch and relion strips Start: 09-16-2017 Comment on above: he uses one touch an d relion strips Cool Blood Gluco se Test Strips In Vitro Strip 1 (one) Strip check blood sugar 6 times a day for 90 days Quantity: 540 {Strip} Refills: 5 Ordered: 16-Sep-2017 Fast DO, Estuardo A Fast DO, Estuardo A Start : 16-Sep-2017 Active Comments: he uses one touch and relion strips Start: 09-16-2017 Comment on above: he uses one touch an d relion strips Cool Blood Gluco se Test Strips In Vitro Strip 1 (one) Strip check blood sugar 6 times a day for 90 days Quantity: 540 {Strip} Refills: 5 Ordered: 16-Sep-2017 Fast DO, Estuardo A Fast DO, Estuardo A Start : 16-Sep-2017 Active Comments: he uses one touch and relion strips Start: 09-16-2017 Comment on above: he uses one touch an d relion strips Cool Blood Gluco se Test Strips In Vitro Strip 1 (one) Strip check blood sugar 6 times a day for 90 days Quantity: 540 {Strip} Refills: 5 Ordered: 16-Sep-2017 Fast DO, Estuardo A Fast DO, Estuardo A Start : 16-Sep-2017 Active Comments: he uses one touch and relion strips Start: 09-16-2017 Comment on above: he uses one touch an d relion strips Cool Blood Gluco se Test Strips In Vitro Strip 1 (one) Strip check blood sugar 6 times a day for 90 days Quantity: 540 {Strip} Refills: 5 Ordered: 16-Sep-2017 Fast DO, Estuardo A Fast DO, Estuardo A Start : 16-Sep-2017 Active Comments: he uses one touch and relion strips Start: 09-16-2017 Comment on above: he uses one touch an d relion strips Cool Blood Gluco se Test Strips In Vitro Strip 1 (one) Strip check blood sugar 6 times a day for 90 days Quantity: 540 {Strip} Refills: 5 Ordered: 16-Sep-2017 Fast DO, Estuardo A Fast DO, Estuardo A Start : 16-Sep-2017 Active Comments: he uses one touch and relion strips Start: 09-16-2017 Comment on above: he uses one touch an d relion strips Cool Blood Gluco se Test Strips In Vitro Strip 1 (one) Strip check blood sugar 6 times a day for 90 days Quantity: 540 {Strip} Refills: 5 Ordered: 16-Sep-2017 Fast DO, Estuardo A Fast DO, Estuardo A Start : 16-Sep-2017 Active Comments: he uses one touch and relion strips Start: 09-16-2017 Comment on above: he uses one touch an d relion strips Cool Blood Gluco se Test Strips In Vitro Strip 1 (one) Strip check blood sugar 6 times a day for 90 days Quantity: 540 {Strip} Refills: 5 Ordered: 16-Sep-2017 Fast DO, Estuardo A Fast DO, Estuardo A Start : 16-Sep-2017 Active Comments: he uses one touch and relion strips Start: 09-16-2017 Comment on above: he uses one touch an d relion strips Cool Blood Gluco se Test Strips In Vitro Strip 1 (one) Strip check blood sugar 6 times a day for 90 days Quantity: 540 {Strip} Refills: 5 Ordered: 16-Sep-2017 Fast DO, Estuardo A Fast DO, Estuardo A Start : 16-Sep-2017 Active Comments: he uses one touch and relion strips Start: 09-16-2017 Comment on above: he uses one touch an d relion strips Cool Blood Gluco se Test Strips In Vitro Strip 1 (one) Strip check blood sugar 6 times a day for 90 days Quantity: 540 {Strip} Refills: 5 Ordered: 16-Sep-2017 Fast DO, Estuardo A Fast DO, Estuardo A Start : 16-Sep-2017 Active Comments: he uses one touch and relion strips Start: 09-16-2017 Comment on above: he uses one touch an d relion strips Cool Blood Gluco se Test Strips In Vitro Strip 1 (one) Strip check blood sugar 6 times a day for 90 days Quantity: 540 {Strip} Refills: 5 Ordered: 16-Sep-2017 Fast DO, Estuardo A Fast DO, Estuardo A Start : 16-Sep-2017 Active Comments: he uses one touch and relion strips Start: 09-16-2017 Comment on above: he uses one touch an d relion strips Cool Blood Gluco se Test Strips In Vitro Strip 1 (one) Strip check blood sugar 6 times a day for 90 days Quantity: 540 {Strip} Refills: 5 Ordered: 16-Sep-2017 Fast DO, Estuardo A Fast DO, Estuardo A Start : 16-Sep-2017 Active Comments: he uses one touch and relion strips Start: 09-16-2017 Comment on above: he uses one touch an d relion strips Cool Blood Gluco se Test Strips In Vitro Strip 1 (one) Strip check blood sugar 6 times a day for 90 days Quantity: 540 {Strip} Refills: 5 Ordered: 16-Sep-2017 Fast DO, Estuardo A Fast DO, Estuardo A Start : 16-Sep-2017 Active Comments: he uses one touch and relion strips Start: 09-16-2017 Comment on above: he uses one touch an d relion strips Cool Blood Gluco se Test Strips In Vitro Strip 1 (one) Strip check blood sugar 6 times a day for 90 days Quantity: 540 {Strip} Refills: 5 Ordered: 16-Sep-2017 Fast DO, Estuardo A Fast DO, Estuardo A Start : 16-Sep-2017 Active Comments: he uses one touch and relion strips Start: 09-16-2017 Comment on above: he uses one touch an d relion strips Cool Blood Gluco se Test Strips In Vitro Strip 1 (one) Strip check blood sugar 6 times a day for 90 days Quantity: 540 {Strip} Refills: 5 Ordered: 16-Sep-2017 Fast DO, Estuardo A Fast DO, Estuardo A Start : 16-Sep-2017 Active Comments: he uses one touch and relion strips Start: 09-16-2017 Comment on above: he uses one touch an d relion strips Cool Blood Gluco se Test Strips In Vitro Strip 1 (one) Strip check blood sugar 6 times a day for 90 days Quantity: 540 {Strip} Refills: 5 Ordered: 16-Sep-2017 Fast DO, Estuardo A Fast DO, Estuardo A Start : 16-Sep-2017 Active Comments: he uses one touch and relion strips Start: 09-16-2017 Comment on above: he uses one touch an d relion strips Cool Blood Gluco se Test Strips In Vitro Strip 1 (one) Strip check blood sugar 6 times a day for 90 days Quantity: 540 {Strip} Refills: 5 Ordered: 16-Sep-2017 Fast DO, Estuardo A Fast DO, Estuardo A Start : 16-Sep-2017 Active Comments: he uses one touch and relion strips Start: 09-16-2017 Comment on above: he uses one touch an d relion strips Cool Blood Gluco se Test Strips In Vitro Strip 1 (one) Strip check blood sugar 6 times a day for 90 days Quantity: 540 {Strip} Refills: 5 Ordered: 16-Sep-2017 Fast DO, Estuardo A Fast DO, Estuardo A Start : 16-Sep-2017 Active Comments: he uses one touch and relion strips Start: 09-16-2017 Comment on above: he uses one touch an d relion strips Cool Blood Gluco se Test Strips In Vitro Strip 1 (one) Strip check blood sugar 6 times a day for 90 days Quantity: 540 {Strip} Refills: 5 Ordered: 16-Sep-2017 Fast DO, Estuardo A Fast DO, Estuardo A Start : 16-Sep-2017 Active Comments: he uses one touch and relion strips Start: 09-16-2017 Comment on above: he uses one touch an d relion strips Cool Blood Gluco se Test Strips In Vitro Strip 1 (one) Strip check blood sugar 6 times a day for 90 days Quantity: 540 {Strip} Refills: 5 Ordered: 16-Sep-2017 Fast DO, Estuardo A Fast DO, Estuardo A Start : 16-Sep-2017 Active Comments: he uses one touch and relion strips Start: 09-16-2017 Comment on above: he uses one touch an d relion strips Cool Blood Gluco se Test Strips In Vitro Strip 1 (one) Strip check blood sugar 6 times a day for 90 days Quantity: 540 {Strip} Refills: 5 Ordered: 16-Sep-2017 Fast DO, Estuardo A Fast DO, Estuardo A Start : 16-Sep-2017 Active Comments: he uses one touch and relion strips Start: 09-16-2017 Comment on above: he uses one touch an d relion strips Cool Blood Gluco se Test Strips In Vitro Strip 1 (one) Strip check blood sugar 6 times a day for 90 days Quantity: 540 {Strip} Refills: 5 Ordered: 16-Sep-2017 Fast DO, Estuardo A Fast DO, Estuardo A Start : 16-Sep-2017 Active Comments: he uses one touch and relion strips Start: 09-16-2017 Comment on above: he uses one touch an d relion strips Cool Blood Gluco se Test Strips In Vitro Strip 1 (one) Strip check blood sugar 6 times a day for 90 days Quantity: 540 {Strip} Refills: 5 Ordered: 16-Sep-2017 Fast DO, Estuardo A Fast DO, Estuardo A Start : 16-Sep-2017 Active Comments: he uses one touch and relion strips Start: 09-16-2017 Comment on above: he uses one touch an d relion strips Cool Blood Gluco se Test Strips In Vitro Strip 1 (one) Strip check blood sugar 6 times a day for 90 days Quantity: 540 {Strip} Refills: 5 Ordered: 16-Sep-2017 Fast DO, Estuardo A Fast DO, Estuardo A Start : 16-Sep-2017 Active Comments: he uses one touch and relion strips Start: 09-16-2017 Comment on above: he uses one touch an d relion strips Cool Blood Gluco se Test Strips In Vitro Strip 1 (one) Strip check blood sugar 6 times a day for 90 days Quantity: 540 {Strip} Refills: 5 Ordered: 16-Sep-2017 Fast DO, Estuardo A Fast DO, Estuardo A Start : 16-Sep-2017 Active Comments: he uses one touch and relion strips Start: 09-16-2017 Comment on above: he uses one touch an d relion strips Cool Blood Gluco se Test Strips In Vitro Strip 1 (one) Strip check blood sugar 6 times a day for 90 days Quantity: 540 {Strip} Refills: 5 Ordered: 16-Sep-2017 Fast DO, Estuardo A Fast DO, Estuardo A Start : 16-Sep-2017 Active Comments: he uses one touch and relion strips Start: 09-16-2017 Comment on above: he uses one touch an d relion strips Cool Blood Gluco se Test Strips In Vitro Strip 1 (one) Strip check blood sugar 6 times a day for 90 days Quantity: 540 {Strip} Refills: 5 Ordered: 16-Sep-2017 Fast DO, Estuardo A Fast DO, Estuardo A Start : 16-Sep-2017 Active Comments: he uses one touch and relion strips Start: 09-16-2017 Comment on above: he uses one touch an d relion strips Cool Blood Gluco se Test Strips In Vitro Strip 1 (one) Strip check blood sugar 6 times a day for 90 days Quantity: 540 {Strip} Refills: 5 Ordered: 16-Sep-2017 Fast DO, Estuardo A Fast DO, Estuardo A Start : 16-Sep-2017 Active Comments: he uses one touch and relion strips Start: 09-16-2017 Comment on above: he uses one touch an d relion strips Cool Blood Gluco se Test Strips In Vitro Strip 1 (one) Strip check blood sugar 6 times a day for 90 days Quantity: 540 {Strip} Refills: 5 Ordered: 16-Sep-2017 Fast DO, Estuardo A Fast DO, Estuardo A Start : 16-Sep-2017 Active Comments: he uses one touch and relion strips Start: 09-16-2017 Comment on above: he uses one touch an d relion strips Cool Blood Gluco se Test Strips In Vitro Strip 1 (one) Strip check blood sugar 6 times a day for 90 days Quantity: 540 {Strip} Refills: 5 Ordered: 16-Sep-2017 Fast DO, Estuardo A Fast DO, Estuardo A Start : 16-Sep-2017 Active Comments: he uses one touch and relion strips Start: 09-16-2017 Comment on above: he uses one touch an d relion strips Cool Blood Gluco se Test Strips In Vitro Strip 1 (one) Strip check blood sugar 6 times a day for 90 days Quantity: 540 {Strip} Refills: 5 Ordered: 16-Sep-2017 Fast DO, Estuardo A Fast DO, Estuardo A Start : 16-Sep-2017 Active Comments: he uses one touch and relion strips Start: 09-16-2017 Comment on above: he uses one touch an d relion strips Cool Blood Gluco se Test Strips In Vitro Strip 1 (one) Strip check blood sugar 6 times a day for 90 days Quantity: 540 {Strip} Refills: 5 Ordered: 16-Sep-2017 Fast DO, Estuardo A Fast DO, Estuardo A Start : 16-Sep-2017 Active Comments: he uses one touch and relion strips Start: 09-16-2017 Comment on above: he uses one touch an d relion strips Cool Blood Gluco se Test Strips In Vitro Strip 1 (one) Strip check blood sugar 6 times a day for 90 days Quantity: 540 {Strip} Refills: 5 Ordered: 16-Sep-2017 Fast DO, Estuardo A Fast DO, Estuardo A Start : 16-Sep-2017 Active Comments: he uses one touch and relion strips Start: 09-16-2017 Comment on above: he uses one touch an d relion strips Cool Blood Gluco se Test Strips In Vitro Strip 1 (one) Strip check blood sugar 6 times a day for 90 days Quantity: 540 {Strip} Refills: 5 Ordered: 16-Sep-2017 Fast DO, Estuardo A Fast DO, Estuardo A Start : 16-Sep-2017 Active Comments: he uses one touch and relion strips Start: 09-16-2017 Comment on above: he uses one touch an d relion strips Cool Blood Gluco se Test Strips In Vitro Strip 1 (one) Strip check blood sugar 6 times a day for 90 days Quantity: 540 {Strip} Refills: 5 Ordered: 16-Sep-2017 Fast DO, Estuardo A Fast DO, Estuardo A Start : 16-Sep-2017 Active Comments: he uses one touch and relion strips Start: 09-16-2017 Comment on above: he uses one touch an d relion strips Cool Blood Gluco se Test Strips In Vitro Strip 1 (one) Strip check blood sugar 6 times a day for 90 days Quantity: 540 {Strip} Refills: 5 Ordered: 16-Sep-2017 Fast DO, Estuardo A Fast DO, Estuardo A Start : 16-Sep-2017 Active Comments: he uses one touch and relion strips Start: 09-16-2017 Comment on above: he uses one touch an d relion strips Cool Blood Gluco se Test Strips In Vitro Strip 1 (one) Strip check blood sugar 6 times a day for 90 days Quantity: 540 {Strip} Refills: 5 Ordered: 16-Sep-2017 Fast DO, Estuardo A Fast DO, Estuardo A Start : 16-Sep-2017 Active Comments: he uses one touch and relion strips Start: 09-16-2017 Comment on above: he uses one touch an d relion strips Cool Blood Gluco se Test Strips In Vitro Strip 1 (one) Strip check blood sugar 6 times a day for 90 days Quantity: 540 {Strip} Refills: 5 Ordered: 16-Sep-2017 Fast DO, Estuardo A Fast DO, Estuardo A Start : 16-Sep-2017 Active Comments: he uses one touch and relion strips Start: 09-16-2017 Comment on above: he uses one touch an d relion strips Cool Blood Gluco se Test Strips In Vitro Strip 1 (one) Strip check blood sugar 6 times a day for 90 days Quantity: 540 {Strip} Refills: 5 Ordered: 16-Sep-2017 Fast DO, Estuardo A Fast DO, Estuardo A Start : 16-Sep-2017 Active Comments: he uses one touch and relion strips Start: 09-16-2017 Comment on above: he uses one touch an d relion strips Goals Date Patient Goal Desired Activity /State Functional Status Date Assessment Result Facility 06-13-2012 LP-IR Score LP-IR Score 0 [facility] Work Phone: Comment on above: The LP-IR Score comb noman information from lipoproteinparticle concentration and size to give improvedassessment of insulin resistance and diabetes risk.Small LDL-P, LDL Particle Size, HDL-Particle, andLP-IR Score have been validated by [employer]but not cleared by US FDA; the clinical utilityof these test results has not been fully established.INSULIN RESISTANCE MARKER <--Insulin Sensitive Insulin Resistant--> Percentile in Reference PopulationInsulin Resistance ScoreLP-IR Score Low 25th 50th 75th High <27 27 45 63 >63 PATIENT WAS FASTINGP ERFORMED BY: [facility] [id number] [facility] [id number] BY: [facility] [id number] Information: [id number] Mental Status Date Assessment Result Facility 08-29-2022 Cognitive function Voice/Name [facility] Work Phone: Clinical Notes 08-19-2020 to 03-15-2025 Note Date & Type Note Facility 03-15-2025 Radiology Diagnostic study note [facility] Imaging Services [address] [place] [address] CTA Chest W/WO Contrast MR#: [id number] Acct: [id number] Name: DARRIUS PADRON Rep #: [id number] 37 : 1965 M 59 From: José Moser MD PCP: Dr. Estuardo Jimenez, DO Status: REG CLI Study:CTA Chest W/WO Contrast Date of Exam: 03/15/25 Exam# [id number] Ordering Dr: Kiara Jimenez ra, DO PROCEDURE: CTA CHEST W/WO CONTRAST 03/15/2025 REASON FOR EXAM: CTA CHEST PE PROTOCOL - STAT - ELEVATED DDIMER, CHEST PAIN, SOB TECHNIQUE: Procedure Code: CTCTACHWW Modality: CT Procedure: CTA CHEST W/WO CONTRAST Multiplanar Sagittal and Coronal images were obtained. 3D post processing was performed CONTRAST: Isovue 370 VOLUME: 100 mL One or more dose reduction techniques were used (e.g., Automated exposure control, adjustment of the mA and/or kV according to patient size, use of iterative reconstruction technique). RADIATION DOSE SUMMARY: CTDlvol: 20 mGy DLP: 415 mGycm COMPARISON: No prior CT. # of known CTs in the past 12 months: 0 # of known Cardiac Nuclear Medicine Studies in the past 12 months: 0 FINDINGS: Thyroid gland: Negative. Lungs: Mild emphysematous changes. No pulmonary nodules or masses. Pleura: Negative for pleural effusion or pneumothorax. Airways: Imaged bronchi and trachea negative. Mediastinum: Negative for mediastinal mass. Lymph nodes: Negative for axillary, mediastinal or hilar adenopathy. Heart and Vasculature: Pulmonary arteries well opacify with intravenous contrast. Negative for intraluminal thrombus. Heart normal size. Slight vascular calcifications of the thoracic aorta. Coronary Artery Calcifications: Severe vascular calcifications of the coronary arteries Upper Abdomen: Increased stool throughout the colon. Hardware: None. Bones: Age-appropriate degenerative changes of the thoracic spine. CT/CTA Chest W/WO Contrast IMPRESSION: Negative for pulmonary embolus. Mild emphysema. Reading Location: [place] [address] CC: Dr. Estuardo Jimenez DO ~ Supervisor Beater Room: Signed [facility] 09-26-2023 Discharge summary Note Date/Time September 26, 2023 10:09am [facility] Physical Therapy [facility] [address] [place] [address]. [address] [place] [address] / REHABILITATION SERVICES DISCHARGE SUMMARY MR#: [id number] Acct: [id number] Name: DARRIUS PADRON Rep #: [id number] 16 : 1965 58 From: Shahram SHEPPARD T Referring Dr.: Dr. Ricci Polk MD S tatus: REG RCR Insurance: [facility] SELF PAY INSURANCE Patient Information Patient Information: DARRIUS PADRON was seen in my office for initial evaluation on 07/04/23. The following Plan of Care was established for this patient: POC Established Initial Frequency: 1-2x /Week Initial Duration: 4 Weeks Anticipated Interventions Patient/Client Instruction: Educate patient on: Condition, Plan of Care and Benefits of Fitness Program For the Purpose of:: To decrease pain, To increase ROM, To improve muscle performance and motor function, To improve ability to perform ADL's, To improve performance and independence with ADL's, To decrease level of supervision to perform tasks, To improve ability of physical actions for home/community/work/leisure, To improve gait and locomotor functions, To improve health of tissue, To decrease soft tissue restriction, To increase flexibility/ROM, To improve endurance, To improve balance, To improve safety with gait, To improve self management and To improve tolerance to ADL's Therapeutic Exercise to Include: Strength training, Endurance training, Balance training, Agility training, Body mechanics, Flexibilty training, Gait and locomotor training, Passive ROM and Active ROM For the Purpose of:: To decrease pain, To decrease swelling/inflammation, To increase ROM, To improve ability to perform ADL's, To increase tolerance to activity/condition/position, To improve ability of physical actions for home/community/work/leisure, To improve gait and locomotor functions, To decrease soft tissue restriction, To increase flexibility/ROM, To improve endurance, To improve safety with gait, To assume or resume ADL's, To prevent re-injury, To improve ability to perform tasks related to life management and Toimprove tolerance to ADL's Manual Therapy Techniques to Include: Mobilization, Passive ROM and Soft tissue mobilization For the Purpose of:: To decrease pain, To decrease swelling/inflammation, To increase ROM, To improve nutrient delivery to tissue, To increase flexibility/ROM, To improve endurance and To improve balance Cryotherapy (ice pack, ice massage): Yes Vasopneumatic device: Yes For the Purpose of:: To decrease pain, To decrease swelling/inflammation, To improve muscle performance and motor function and To improve health of tissue Last Seen Last Seen: This patient was last seen in our office 07/25/23. Pertinent comments regardingtheir Physical therapy will appear below: Pt. was seen in PT for his B TKA. Pt. was doing well. He has not been seen in ~2months and will be DC from PT at this point in time. At this point I will be discontinuing this patient from physical therapy. I would be happy to see this patient again in the future if found appropriate by the physician. Thank you! Shahram Guerra, DPT Balance/Gait/Functional tests Balance/Special Test Scores Lower Extremity Functional Score: 59 <Electronically signed by Shahram Guerra DPT> 09/26/23 1009 CC: Dr. Estuardo Jimenez DO; Dr. Ricci Polk MD ~ CLS Signed [facility] Work Phone: [phone] Procedure [facility] 08-29-2022 Procedure [facility]02-23-2023 History of Present illness Narrative* Nadya Waddell MD - 08/09/2022 8:30 AM EST Images from the original note were not included. [facility] [address] [place] [address] [facility] [address] Dept: [phone] Dept Loc: [phone] Nadya Waddell MD CHIEF COMPLAINT: Chief Complaint Patient presents with New Patient Numbness HISTORY OF PRESENT ILLNESS: The patient is a 57 y.o. person who presents with pain in the legs. He reports that he started having the pain after COVID in January of 2021. He reports that he did not have pneumonia and did not have to be in the hospital. He reports that he has pain that refers from the lower back to the buttocksand in to the back of the knees. He is also having weakness. Driving and sitting makes the pain anddiscomfort worse. Only lying down brings him relief. The weakness bothers him greatly. He denies falling. He has trouble going up and down steps is difficult. He reports that everything is complicated by arthritis in his knees as well. He reports that shots from pain management were not successful.PT did not help him either. He and I reviewed the seizure from 2019. It has not happened again. He denies alcohol. Past Medical History: has a past medical history of Diabetes (HCC) and Hypertension. Past Surgical History: has no past surgical history on file. Medications: Current Outpatient Medications: finasteride (Propecia) 1 MG tablet, , Disp: , Rfl: insulin glargine (Lantus SoloStar) 100 UNIT/ML pen, 18 Units daily., Disp: , Rfl: insulin lispro (HumaLOG) 100 UNIT/ML injection, , Disp: , Rfl: lisinopril 2.5 MG tablet, , Disp: , Rfl: omeprazole (PriLOSEC) [address] capsule, , Disp: , Rfl: rosuvastatin (Crestor) 10 MG tablet, , Disp: , Rfl: sildenafil (Viagra) 100 MG tablet, 1 (one) Tablet as needed prior to intercourse, Disp: , Rfl: Synthroid 175 MCG tablet, , Disp: , Rfl: tadalafil (Cialis) 5 MG tablet, Take 5 mg by mouth daily., Disp: , Rfl: Medication Dispense History (from 08/09/2021 to 08/09/2022) Expand All Collapse All Azithromycin Clotrimazole Continuous Blood Gluc Sensor Diclofenac Sodium Famotidine Finasteride Fluconazole HYDROcodone-Acetaminophen Insulin Glargine Insulin Lispro Levothyroxine Sodium Lidocaine HCl Lisinopril Metoprolol Succinate Omeprazole Ondansetron Rosuvastatin Calcium Sildenafil Citrate Tadalafil Other predniSONE prednisoLONE Filled Written Sold ID Drug QTY Days Prescriber RX # Dispenser Refill Daily Dose* Pymt Type COMPUTER AIDED DRAFTER 01/07/2022 01/07/2022 1 Hydrocodone-Acetamin 5-325 Mg 10.00 2 Re Samina [id number] [facility] ([id number]) 0 25.00 [facility] Ins [place] 05/31/2021 05/31/2021 1 Gabapentin 100 Mg Capsule 180.00 30 De Fas [id number] [facility] ([id number]) 0 Comm Ins [place] Allergies: Patient has no known allergies. Social History: Social History Socioeconomic History Marital status: Spouse name: Not on file Number of children: Not on file Years of education: Not on file Highest education level: Not on file Occupational History Not on file Tobacco Use Smoking status: Never Smokeless tobacco: Never Substance and Sexual Activity Alcohol use: Not on file Drug use: Not on file Sexual activity: Not on file Other Topics Concern Not on file Social History Narrative Not on file Social Determinants of Health Financial Resource Strain: Not on file Food Insecurity: Not on file Transportation Needs: Not on file Physical Activity: Not on file Stress: Not on file Social Connections: Not on file Intimate Partner Violence: Not on file Housing Stability: Not on file Family History: No family history on file. REVIEW OF SYSTEMS: Review of Systems Constitutional: Negative for appetite change, chills, diaphoresis, fever and unexpected weight change. HENT: Negative for dental problem and mouth sores. Eyes: Negative for discharge and itching. Respiratory: Negative for chest tightness. Cardiovascular: Negative for chest pain and leg swelling. Gastrointestinal: Negative for rectal pain and vomiting. Endocrine: Negative for polydipsia, polyphagia and polyuria. Genitourinary: Negative for decreased urine volume, flank pain and genital sores. Musculoskeletal: Negative for arthralgias. Skin: Negative for color change. Allergic/Immunologic: Negative for food allergies and immunocompromised state. Neurological: Positive for weakness. Hematological: Negative for adenopathy. Does not bruise/bleed easily. Psychiatric/Behavioral: Negative for agitation, behavioral problems, decreased concentration, sleepdisturbance and suicidal ideas. PHYSICAL EXAM: Vitals: BP 137/86 (BP Location: Right arm) Pulse 89 Wt 179 lb (81.2 kg) General Appearance: Patient is in no apparent distress. Head is normocephalic, atraumatic Cardiovascular: Regular rate and rhythm. No heart murmurs. No carotid bruit Neurologic: MOCA-b ( Mentation: Alert and oriented x 3 to person, place and time. Speech and Language: Speech and language normal Concentration and Attention: Concentration normal Memory: Memory /5 immediate, /5 delayed Fund of Knowledge: Fund of knowledge normal Cranial Nerves: II, III, IV, V, , VII, VIII, IX, X, XI, XII tested and were intact including fundoscopic exam (optic discs) and visual field to confrontation. Motor: Strength: Strength 5 out of 5 with normal tone Alternating Movements: Normal Cogwheel Rigidity: None Tone: Tone is normal Tremor / Involuntary Movements: None Deep Tendon Reflexes: 1 out of 4 symmetrical in all four limbs. Sensory: Normal sensation upper and lower extremities remarkably intact. Coordination: Normal coordination upper and lower extremities Gait and Station: Gait and Station is normal DATA No results found for: PHENYTOIN, PHENOBARB, VALPROATE, CBMZ No results found for: WBC, HGB, HCT, PLT, CHOL, TRIG, HDL, LDLDIRECT, ALT, AST, NA, K, CL, CREATININE, BUN, CO2, TSH, PSA, INR, GLUF We did get reocrds from Dr. Jimenez's office that includes EMG/NCS that showed neuropathy but no radiculopathy. MRI reports sent to us today shows severe spinal stenosis at L4-5. Only mild foraminal stenosis based on the report. EXAMINATION: CT BRAIN WO IVCON CLINICAL HISTORY: Seizure, new, nontraumatic, >40 yrs TECHNIQUE: Serial axial images without IV contrast were obtained from the vertex to the foramen magnum. MQ: CTBWO_3 CT Dose-Length Product (DLP): 836 mGy*cm CT Dose Reduction Employed: No dose reduction techniques were required COMPARISON: None. RESULT: Post-operative change: None. Acute change: No evidence of an acute infarct or other acute parenchymal process. Hemorrhage: No evidence of acute intracranial hemorrhage. Mass Lesion / Mass Effect: There is no evidence of an intracranial mass or extraaxial fluid collection. No significant mass effect. Chronic change: None apparent. Parenchyma: There is no significant volume loss. The brain parenchyma is otherwise within normal limits for age. Ventricles: The ventricles are within normal limits of size and configuration for age. Paranasal sinuses and skull base: The visualized paranasal sinuses are grossly clear. The skull base and imaged soft tissues are unremarkable. Commercial Lending Relationship Manager (topogram) images: Unremarkable. IMPRESSION IMPRESSION: Unremarkable noncontrast head CT. No image results found. No results found for: LEVETIRACETA, FERRITIN, CRP, LAYLA, ANCANo components found for: TOPIRA No results found for: MOISE, IMMUNOGLOBUL, OLIGOBANDS No results found for: MOISE, SEDRATE, CRP, LAYLA, ANCA, HOMOCYSTEINE, [id number], GLUCCSF No results found for: BGJ31IS, HEPCAB ASSESSMENT AND PLAN Problem List Items Addressed This Visit None Visit Diagnoses Spinal stenosis of lumbar region with neurogenic claudication - Primary Sensorimotor neuropathy Relevant Orders Vitamin B1 Vitamin B6 Vitamin B12 Protein Electrophoresis, Serum Immunofixation Electrophoresis TSH Other fatigue Relevant Orders Vitamin B1 Vitamin B6 Vitamin B12 Protein Electrophoresis, Serum Immunofixation Electrophoresis TSH The primary issue with this patient is the severe stenosis at L4-5. Fixing that issue will take care of the bulk of his problems. Labs for causes of neuropathy other than the DM. He is to get those done before surgery if Dr. Romna not already done them. I spent 45 minutes caring for this patient today, reviewing labs and records, seeing the patient, documenting in the record and arranging for studies. documented in this [facility]03-05-2021 NotePatient Outreach (COVAMN) DARRIUS PADRON ([id number]) 1965 M Date Time Provider Department 08/19/20 ROSE SAGASTUME During your visit today, we recorded the following information about you: Allergies As of Date: 08/19/2020 (No Known Allergies) Date Reviewed: 01/03/2020 Reviewed by: Veena Pride) [facility] [place] - Fully Assessed Order(s):SARS-COVID VACCINE 1ST DOSE APPT [[id number]] Order #: [id number] FUTURE Prescriptions as of 08/19/2020 Sig: LANTUS SOLOSTAR U-100 INSULIN* CRESTOR ORAL Take by mouth. LISINOPRIL 2.5 MG TABLET INSULIN DEGLUDEC (U-100) 100 * Inject 12 Units subcutaneousl* AFREZZA INHALATION Inhale as instructed. SYNTHROID ORAL Take by mouth. HUMULIN R INJECTION by INJECTION(UNSPECIFIED PARE* INSULIN NPH ISOPHANE U-100 HU* Inject subcutaneously. Problem List As Of Date 08/19/2020 Noted Resolved Proliferative diabetic retinopathy (HCC) [E11.3*02/24/2014 Cataract [H26.9] 02/24/2014 Pseudophakia [Z96.1] 2016 Stable proliferative diabetic retinopathy of francesca*10/24/2016 Encounter Status:Closed by [employer], PRODUSER on 08/22/20[facility] Evaluation noteNo assessment information availableWTwin City Hospital Work Phone: Evaluation note* Diagnosis Onset Date Resolution Status Encounter for screening for malignant neoplasm of colo n acute [facility] Work Phone: Evaluation note* Diagnosis Spinal stenosis of lumbar region with neurogenic claudication- Primary Sensorimotor neuropathy Other fatigue documented in this encounter [facility] Author Ashok Friend [facility] August 29, 2022 6:43am Note Date/Time August 29, 2022 6:4 3am [facility] Medical Records Department [address] [place] [address] History & Physical Exam 08/29/22 0641 MR#: [id number] Acct: [id number] Name: DARRIUS PADRON Rep #:[id number] 23 : 1965 57 From: Ashok Billingsley DO PCP: Dr. Estuardo Jimenez, DO Status:[facility] Location: [place] [address] HPI - General General Date of Admission: 08/29/22 Date of Service: 08/29/22 Chief Complaint: Screening colonoscopy HPI Narrative DARRIUS PADRON, is a 57 M who presents today for screening colonoscopy. He denies any abdominal pain. He has a past medical history of CAD, hypothyroidism, hypercholesterolemia, gastroesophageal reflux use and type 1 diabetes. He arrives here for screening colonoscopy. He also denies any constipation, diarrhea or lower GI bleeding. He had a colonoscopy possibly 10 years ago and that was normal. He does have a positive family history of colon cancer in his father. [facility] Medical History (Updated 08/23/22 @ 09:23 by Carol Ann Clarke) Abnormal cardiovascular stress test Arthritis Atherosclerotic heart disease of [place] coronary artery without angina pectoris Back pain Bilateral foot pain BPH (benign prostatic hyperplasia) Cardiology follow-up encounter Change in bowel habits Coronary artery disease Diabetes Diarrhea, secretory Elevated coronary artery calcium score Erectile dysfunction Essential hypertension Family history of malignant neoplasm of digestive organs Food impaction of esophagus Gastric reflux Hair loss High cholesterol History of pain when walking History of steroid therapy History of stress test Hypercholesterolemia Insulin dependent diabetes mellitus Kidney stones Lumbar radiculopathy Mouth ulcers Non-smoker Odynophagia Osteoarthritis Polyuria PVD (peripheral vascular disease) Schatzki's ring Thyroid disease Ulnar neuropathy Vitamin D deficiency Home Medications finasteride 1 mg tablet 1 mg PO DAILY 08/03/19 [History Last Taken 05/18/21] insulin aspart U-100 100 unit/mL (3 mL) subcutaneous pen (Novolog FlexPen U-100 Insulin aspart) See Protocol SQ DAILY 08/03/19 [History Last Taken 1 Day Ago ~04/21/21] insulin glargine 100 unit/mL (3 mL) subcutaneous pen 20 units SQ 0800 08/03/19 [History Last Taken 1 Day Ago ~04/21/21] levothyroxine 175 mcg tablet 175 mcg PO DAILY 08/03/19 [History Last Taken 05/18/21] lisinopril 2.5 mg tablet 2.5 mg PO DAILY 08/03/19 [History Last Taken 05/18/21] omeprazole 20 mg tablet,delayed release 20 mg PO DAILY 08/03/19 [History Last Taken 05/18/21] aspirin 81 mg tablet,delayed release (Adult Aspirin Regimen) 81 mg PO DAILY 05/15/21 [History Last Taken 05/18/21] tadalafil 5 mg tablet 0.5 tab PO DAILY 01/07/22 [History Last Taken Unknown] naproxen sodium 220 mg tablet (Aleve) 660 mg PO BID PRN Pain 03/24/22 [History Last Taken Unknown] rosuvastatin 40 mg tablet (Crestor) 10 mg PO DAILY 03/24/22 [History Last Taken Unknown] vit [id number] 500 mg-50 mg-25 mg-40 mg tablet (Bioflex) 2 tab PO DAILY 03/24/22 [History Last Taken Unknown] Allergy/AdvReac Type Severity Reaction Status Date / Time No Known Allergies Allergy Verified 08/29/22 06:35 Family History Father Colon cancer Other Thyroid disorder Surgical History (Updated 08/23/22 @ 09:23 by Carol Ann Clarke) History of colonoscopy History of esophagogastroduodenoscopy (EGD) (08/2019) History of left heart catheterization (05/18/21) Hx of knee surgery Social History household members: spouse Smoking Status: Never smoker alcohol intake: current substance use type: does not use ROS Review of Systems ROS Unobtainable: other Constitutional Constitutional: Denies fatigue, fever(s), poor appetite, weight gain or weight loss ENT HEENT: Denies mouth lesions Cardiovascular Cardiovascular: Denies abdominal bloating, abdominal edema or abdominal pain Respiratory/Chest Respiratory/Chest: Denies change in mental status, change in phlegm color, chestcongestion or chest tightness Gastrointestinal Gastrointestinal: Denies belching, bloating, change in bowel habits, change in stool character, chewing difficulty, coffee ground emesis, constipation, cramping, diarrhea, dyspepsia, dysphagia, early satiety, excessive flatus, fecalincontinence, heartburn, hematemesis, hematochezia, hemorrhoids, loose stools, melena, nausea, odynophagia, rectal bleeding, tenesmus, vomiting or weight changes Genitourinary Genitourinary: Denies abdominal discomfort, burning urination or itching Musculoskeletal Musculoskeletal: Reports as per HPI; Denies muscle weakness or myalgias Integumentary Integumentary: Denies jaundice Neurologic Neurologic: Denies lack of coordination or weakness Psychiatric Psychiatric: Denies confusion, depression, memory loss, mood swings, paranoia orsuicidal ideation Endocrine Endocrinology: Denies systems reviewed and no addt'l complaints, except as documented Hematologic/Lymphatic Hematologic/Lymphatic: Denies anemia, easy bleeding, easy bruising or lymphadenopathy Allergic/Immunologic Allergic/Immunologic: Denies systems reviewed and no addt'l complaints, except as documented Vital Signs Vital Signs Vital Signs: 08/29/22 06:36 08/29/22 06:40 Temperature 97.8 F Temperature Source Temporal Pulse Rate 84 Respiratory Rate 16 Respiratory Pattern Normal Blood Pressure 150/87 H Blood Pressure Mean 108 Blood Pressure Source Monitor Blood Pressure Position Semi-Fowlers Blood Pressure Location Left Arm Pulse Ox 97 Oxygen Delivery Method Room Air Weight Weight: 171 lb 15.369 oz Body Mass Index (BMI) 22.6 Physical Exam Const alert General Appearance: cooperative Orientation / Consciousness: oriented to person HEENT hearing grossly normal bilaterally Head and Scalp: normal to inspection Face and Sinus: face symmetric Nose: external nose normal Mouth: oral and palatal mucosa normal Eyes conjunctivae normal General Eye: normal appearance of both eyes Neck full ROM General: normal visual inspection Lymph Lymphatic: no lymphadenopathy noted Chest inspection of chest normal and palpation of chest normal Chest: symmetrical chest wall rise Resp normal respiratory effort Effort and Inspection: able to speak in complete sentences Cardio regular rate GI non-distended Percussion: normal to percussion Rectal Exam: deferred Neuro Speech: speech normal Gait (Neuro): normal gait Assessment & Plan Assessment/Plan (1) Encounter for screening for malignant neoplasm of colon: PLAN: He was explained alternatives, risk, benefits including outstanding bleeding, infection, sepsis, perforation, need for mergers or . He will have an ASA of 1. 08/29/22 0643 <Electronically signed by Ashok Billingsley DO> Cosigner Signature (if applicable): CC: Dr. Estuardo Jimenez DO; Ashok Billingsley DO~ Signed [facility] Work Phone: Hospital Discharge instructions Additional Instructions 1. Contact Dr. Ohara for allergy testing 2. Take 25 mg of Benadryl every 6 hours for the next 3 days. 3. Take prescribed medication until gone.[facility] Work Phone: Instructions* Name Dates Details How to access health informa tion online Indication:Benign essential hypertension Start:25-Nov-2015 Instruction Type:Patient Education How to access health informa tion online - Detail Indication:Benign essential hypertension Start:25-Nov-2015 Instruction Type:Patient Education Patient Instructions Indication:Benign essential hypertension Start:25-Nov-2015 Instruction Type:Provider Instructions for Treatment How to access health informa tion online Indication:Type II diabetes mellitus Start:25-Mar-2015 Instruction Type:Patient Education How to access health informa tion online - Detail Indication:Type II diabetes mellitus Start:25-Mar-2015 Instruction Type:Patient Education Patient Instructions Indication:Type II diabetes mellitus Start:25-Mar-2015 Instruction Type:Provider Instructions for Treatment [facility]; [facility] Work Phone: Instructions* Name Dates Details How to access health informa tion online Indication:Benign essential hypertension Start:25-Nov-2015 Instruction Type:Patient Education How to access health informa tion online - Detail Indication:Benign essential hypertension Start:25-Nov-2015 Instruction Type:Patient Education Patient Instructions Indication:Benign essential hypertension Start:25-Nov-2015 Instruction Type:Provider Instructions for Treatment How to access health informa tion online Indication:Type II diabetes mellitus Start:25-Mar-2015 Instruction Type:Patient Education How to access health informa tion online - Detail Indication:Type II diabetes mellitus Start:25-Mar-2015 Instruction Type:Patient Education Patient Instructions Indication:Type II diabetes mellitus Start:25-Mar-2015 Instruction Type:Provider Instructions for Treatment [facility]; [facility] Work Phone: instructions* Name Dates Details How to access health informa tion online Indication:Benign essential hypertension Start:25-Nov-2015 Instruction Type:Patient Education How to access health informa tion online - Detail Indication:Benign essential hypertension Start:25-Nov-2015 Instruction Type:Patient Education Patient Instructions Indication:Benign essential hypertension Start:25-Nov-2015 Instruction Type:Provider Instructions for Treatment How to access health informa tion online Indication:Type II diabetes mellitus Start:25-Mar-2015 Instruction Type:Patient Education How to access health informa tion online - Detail Indication:Type II diabetes mellitus Start:25-Mar-2015 Instruction Type:Patient Education Patient Instructions Indication:Type II diabetes mellitus Start:25-Mar-2015 Instruction Type:Provider Instructions for Treatment [facility]; [facility] Work Phone: instructions* Name Dates Details How to access health informa tion online Indication:Benign essential hypertension Start:25-Nov-2015 Instruction Type:Patient Education How to access health informa tion online - Detail Indication:Benign essential hypertension Start:25-Nov-2015 Instruction Type:Patient Education Patient Instructions Indication:Benign essential hypertension Start:25-Nov-2015 Instruction Type:Provider Instructions for Treatment How to access health informa tion online Indication:Type II diabetes mellitus Start:25-Mar-2015 Instruction Type:Patient Education How to access health informa tion online - Detail Indication:Type II diabetes mellitus Start:25-Mar-2015 Instruction Type:Patient Education Patient Instructions Indication:Type II diabetes mellitus Start:25-Mar-2015 Instruction Type:Provider Instructions for Treatment [facility]; [facility] Work Phone: instructions* Name Dates Details Patient Instructions Indication:Ulnar neuropathy Start:31-May-2021 Instruction Type:Provider Instructions for Treatment How to Access Health Informa tion Online using Patient Portal and [employer]rd [employer] Apps Indication:Ulnar neuropathy Start:31-May-2021 Instruction Type:Patient Education How to access health informa tion online Indication:Benign essential hypertension Start:25-Nov-2015 Instruction Type:Patient Education How to access health informa tion online - Detail Indication:Benign essential hypertension Start:25-Nov-2015 Instruction Type:Patient Education Patient Instructions Indication:Benign essential hypertension Start:25-Nov-2015 Instruction Type:Provider Instructions for Treatment How to access health informa tion online Indication:Type II diabetes mellitus Start:25-Mar-2015 Instruction Type:Patient Education How to access health informa tion online - Detail Indication:Type II diabetes mellitus Start:25-Mar-2015 Instruction Type:Patient Education Patient Instructions Indication:Type II diabetes mellitus Start:25-Mar-2015 Instruction Type:Provider Instructions for Treatment [facility]; [facility] Work Phone: instructions* Name Dates Details How to access health informa tion online Indication:Benign essential hypertension Start:25-Nov-2015 Instruction Type:Patient Education How to access health informa tion online - Detail Indication:Benign essential hypertension Start:25-Nov-2015 Instruction Type:Patient Education Patient Instructions Indication:Benign essential hypertension Start:25-Nov-2015 Instruction Type:Provider Instructions for Treatment How to access health informa tion online Indication:Type II diabetes mellitus Start:25-Mar-2015 Instruction Type:Patient Education How to access health informa tion online - Detail Indication:Type II diabetes mellitus Start:25-Mar-2015 Instruction Type:Patient Education Patient Instructions Indication:Type II diabetes mellitus Start:25-Mar-2015 Instruction Type:Provider Instructions for Treatment [facility] Work Phone: instructions* Name Dates Details Patient Instructions Indication:Ulnar neuropathy Start:31-May-2021 Instruction Type:Provider Instructions for Treatment How to Access Health Informa tion Online using Patient Portal and [employer] Apps Indication:Ulnar neuropathy Start:31-May-2021 Instruction Type:Patient Education How to access health informa tion online Indication:Benign essential hypertension Start:25-Nov-2015 Instruction Type:Patient Education How to access health informa tion online - Detail Indication:Benign essential hypertension Start:25-Nov-2015 Instruction Type:Patient Education Patient Instructions Indication:Benign essential hypertension Start:25-Nov-2015 Instruction Type:Provider Instructions for Treatment How to access health informa tion online Indication:Type II diabetes mellitus Start:25-Mar-2015 Instruction Type:Patient Education How to access health informa tion online - Detail Indication:Type II diabetes mellitus Start:25-Mar-2015 Instruction Type:Patient Education Patient Instructions Indication:Type II diabetes mellitus Start:25-Mar-2015 Instruction Type:Provider Instructions for Treatment [facility]; [facility] Work Phone: instructions* Name Dates Details Patient Instructions Indication:Ulnar neuropathy Start:31-May-2021 Instruction Type:Provider Instructions for Treatment How to Access Health Informa tion Online using Patient Portal and [employer]rd [employer] Apps Indication:Ulnar neuropathy Start:31-May-2021 Instruction Type:Patient Education How to access health informa tion online Indication:Benign essential hypertension Start:25-Nov-2015 Instruction Type:Patient Education How to access health informa tion online - Detail Indication:Benign essential hypertension Start:25-Nov-2015 Instruction Type:Patient Education Patient Instructions Indication:Benign essential hypertension Start:25-Nov-2015 Instruction Type:Provider Instructions for Treatment How to access health informa tion online Indication:Type II diabetes mellitus Start:25-Mar-2015 Instruction Type:Patient Education How to access health informa tion online - Detail Indication:Type II diabetes mellitus Start:25-Mar-2015 Instruction Type:Patient Education Patient Instructions Indication:Type II diabetes mellitus Start:25-Mar-2015 Instruction Type:Provider Instructions for Treatment [facility]; [facility] Work Phone: instructions* Name Dates Details Patient Instructions Indication:Ulnar neuropathy Start:31-May-2021 Instruction Type:Provider Instructions for Treatment How to Access Health Informa tion Online using Patient Portal and [employer] Apps Indication:Ulnar neuropathy Start:31-May-2021 Instruction Type:Patient Education How to access health informa tion online Indication:Benign essential hypertension Start:25-Nov-2015 Instruction Type:Patient Education How to access health informa tion online - Detail Indication:Benign essential hypertension Start:25-Nov-2015 Instruction Type:Patient Education Patient Instructions Indication:Benign essential hypertension Start:25-Nov-2015 Instruction Type:Provider Instructions for Treatment How to access health informa tion online Indication:Type II diabetes mellitus Start:25-Mar-2015 Instruction Type:Patient Education How to access health informa tion online - Detail Indication:Type II diabetes mellitus Start:25-Mar-2015 Instruction Type:Patient Education Patient Instructions Indication:Type II diabetes mellitus Start:25-Mar-2015 Instruction Type:Provider Instructions for Treatment [facility]; [facility] Work Phone: instructions* Name Dates Details Patient Instructions Indication:Ulnar neuropathy Start:31-May-2021 Instruction Type:Provider Instructions for Treatment How to Access Health Informa tion Online using Patient Portal and [employer] Apps Indication:Ulnar neuropathy Start:31-May-2021 Instruction Type:Patient Education How to access health informa tion online Indication:Benign essential hypertension Start:25-Nov-2015 Instruction Type:Patient Education How to access health informa tion online - Detail Indication:Benign essential hypertension Start:25-Nov-2015 Instruction Type:Patient Education Patient Instructions Indication:Benign essential hypertension Start:25-Nov-2015 Instruction Type:Provider Instructions for Treatment How to access health informa tion online Indication:Type II diabetes mellitus Start:25-Mar-2015 Instruction Type:Patient Education How to access health informa tion online - Detail Indication:Type II diabetes mellitus Start:25-Mar-2015 Instruction Type:Patient Education Patient Instructions Indication:Type II diabetes mellitus Start:25-Mar-2015 Instruction Type:Provider Instructions for Treatment [facility]; [facility] Work Phone: instructions* Name Dates Details Patient Instructions Indication:Ulnar neuropathy Start:31-May-2021 Instruction Type:Provider Instructions for Treatment How to Access Health Informa tion Online using Patient Portal and [employer] Apps Indication:Ulnar neuropathy Start:31-May-2021 Instruction Type:Patient Education How to access health informa tion online Indication:Benign essential hypertension Start:25-Nov-2015 Instruction Type:Patient Education How to access health informa tion online - Detail Indication:Benign essential hypertension Start:25-Nov-2015 Instruction Type:Patient Education Patient Instructions Indication:Benign essential hypertension Start:25-Nov-2015 Instruction Type:Provider Instructions for Treatment How to access health informa tion online Indication:Type II diabetes mellitus Start:25-Mar-2015 Instruction Type:Patient Education How to access health informa tion online - Detail Indication:Type II diabetes mellitus Start:25-Mar-2015 Instruction Type:Patient Education Patient Instructions Indication:Type II diabetes mellitus Start:25-Mar-2015 Instruction Type:Provider Instructions for Treatment [facility]; [facility] Work Phone: instructions* Name Dates Details Patient Instructions Indication:Ulnar neuropathy Start:31-May-2021 Instruction Type:Provider Instructions for Treatment How to Access Health Informa tion Online using Patient Portal and [employer] Apps Indication:Ulnar neuropathy Start:31-May-2021 Instruction Type:Patient Education How to access health informa tion online Indication:Benign essential hypertension Start:25-Nov-2015 Instruction Type:Patient Education How to access health informa tion online - Detail Indication:Benign essential hypertension Start:25-Nov-2015 Instruction Type:Patient Education Patient Instructions Indication:Benign essential hypertension Start:25-Nov-2015 Instruction Type:Provider Instructions for Treatment How to access health informa tion online Indication:Type II diabetes mellitus Start:25-Mar-2015 Instruction Type:Patient Education How to access health informa tion online - Detail Indication:Type II diabetes mellitus Start:25-Mar-2015 Instruction Type:Patient Education Patient Instructions Indication:Type II diabetes mellitus Start:25-Mar-2015 Instruction Type:Provider Instructions for Treatment [facility]; [facility] Work Phone: instructions* Name Dates Details Patient Instructions Indication:Ulnar neuropathy Start:31-May-2021 Instruction Type:Provider Instructions for Treatment How to Access Health Informa tion Online using Patient Portal and [employer] Apps Indication:Ulnar neuropathy Start:31-May-2021 Instruction Type:Patient Education How to access health informa tion online Indication:Benign essential hypertension Start:25-Nov-2015 Instruction Type:Patient Education How to access health informa tion online - Detail Indication:Benign essential hypertension Start:25-Nov-2015 Instruction Type:Patient Education Patient Instructions Indication:Benign essential hypertension Start:25-Nov-2015 Instruction Type:Provider Instructions for Treatment How to access health informa tion online Indication:Type II diabetes mellitus Start:25-Mar-2015 Instruction Type:Patient Education How to access health informa tion online - Detail Indication:Type II diabetes mellitus Start:25-Mar-2015 Instruction Type:Patient Education Patient Instructions Indication:Type II diabetes mellitus Start:25-Mar-2015 Instruction Type:Provider Instructions for Treatment [facility]; [facility] Work Phone: instructions* Name Dates Details Patient Instructions Indication:Ulnar neuropathy Start:31-May-2021 Instruction Type:Provider Instructions for Treatment How to Access Health Informa tion Online using Patient Portal and [employer] Apps Indication:Ulnar neuropathy Start:31-May-2021 Instruction Type:Patient Education How to access health informa tion online Indication:Benign essential hypertension Start:25-Nov-2015 Instruction Type:Patient Education How to access health informa tion online - Detail Indication:Benign essential hypertension Start:25-Nov-2015 Instruction Type:Patient Education Patient Instructions Indication:Benign essential hypertension Start:25-Nov-2015 Instruction Type:Provider Instructions for Treatment How to access health informa tion online Indication:Type II diabetes mellitus Start:25-Mar-2015 Instruction Type:Patient Education How to access health informa tion online - Detail Indication:Type II diabetes mellitus Start:25-Mar-2015 Instruction Type:Patient Education Patient Instructions Indication:Type II diabetes mellitus Start:25-Mar-2015 Instruction Type:Provider Instructions for Treatment [facility]; [facility] Work Phone: [employer]* Name Dates Details Patient Instructions Indication:Ulnar neuropathy Start:31-May-2021 Instruction Type:Provider Instructions for Treatment How to Access Health Informa tion Online using Patient Portal and 3rd [employer] Apps Indication:Ulnar neuropathy Start:31-May-2021 Instruction Type:Patient Education How to access health informa tion online Indication:Benign essential hypertension Start:25-Nov-2015 Instruction Type:Patient Education How to access health informa tion online - Detail Indication:Benign essential hypertension Start:25-Nov-2015 Instruction Type:Patient Education Patient Instructions Indication:Benign essential hypertension Start:25-Nov-2015 Instruction Type:Provider Instructions for Treatment How to access health informa tion online Indication:Type II diabetes mellitus Start:25-Mar-2015 Instruction Type:Patient Education How to access health informa tion online - Detail Indication:Type II diabetes mellitus Start:25-Mar-2015 Instruction Type:Patient Education Patient Instructions Indication:Type II diabetes mellitus Start:25-Mar-2015 Instruction Type:Provider Instructions for Treatment [facility]; [facility] Work Phone: instructions* Name Dates Details Patient Instructions Indication:Ulnar neuropathy Start:31-May-2021 Instruction Type:Provider Instructions for Treatment How to Access Health Informa tion Online using Patient Portal and 3rd [employer] Apps Indication:Ulnar neuropathy Start:31-May-2021 Instruction Type:Patient Education How to access health informa tion online Indication:Benign essential hypertension Start:25-Nov-2015 Instruction Type:Patient Education How to access health informa tion online - Detail Indication:Benign essential hypertension Start:25-Nov-2015 Instruction Type:Patient Education Patient Instructions Indication:Benign essential hypertension Start:25-Nov-2015 Instruction Type:Provider Instructions for Treatment How to access health informa tion online Indication:Type II diabetes mellitus Start:25-Mar-2015 Instruction Type:Patient Education How to access health informa tion online - Detail Indication:Type II diabetes mellitus Start:25-Mar-2015 Instruction Type:Patient Education Patient Instructions Indication:Type II diabetes mellitus Start:25-Mar-2015 Instruction Type:Provider Instructions for Treatment [facility]; [facility] Work Phone: instructions* Name Dates Details Patient Instructions Indication:Ulnar neuropathy Start:31-May-2021 Instruction Type:Provider Instructions for Treatment How to Access Health Informa tion Online using Patient Portal and 3rd [employer] Apps Indication:Ulnar neuropathy Start:31-May-2021 Instruction Type:Patient Education How to access health informa tion online Indication:Benign essential hypertension Start:25-Nov-2015 Instruction Type:Patient Education How to access health informa tion online - Detail Indication:Benign essential hypertension Start:25-Nov-2015 Instruction Type:Patient Education Patient Instructions Indication:Benign essential hypertension Start:25-Nov-2015 Instruction Type:Provider Instructions for Treatment How to access health informa tion online Indication:Type II diabetes mellitus Start:25-Mar-2015 Instruction Type:Patient Education How to access health informa tion online - Detail Indication:Type II diabetes mellitus Start:25-Mar-2015 Instruction Type:Patient Education Patient Instructions Indication:Type II diabetes mellitus Start:25-Mar-2015 Instruction Type:Provider Instructions for Treatment [facility]; [facility] Work Phone: instructions* Name Dates Details Patient Instructions Indication:Ulnar neuropathy Start:31-May-2021 Instruction Type:Provider Instructions for Treatment How to Access Health Informa tion Online using Patient Portal and 3rd [employer] Apps Indication:Ulnar neuropathy Start:31-May-2021 Instruction Type:Patient Education How to access health informa tion online Indication:Benign essential hypertension Start:25-Nov-2015 Instruction Type:Patient Education How to access health informa tion online - Detail Indication:Benign essential hypertension Start:25-Nov-2015 Instruction Type:Patient Education Patient Instructions Indication:Benign essential hypertension Start:25-Nov-2015 Instruction Type:Provider Instructions for Treatment How to access health informa tion online Indication:Type II diabetes mellitus Start:25-Mar-2015 Instruction Type:Patient Education How to access health informa tion online - Detail Indication:Type II diabetes mellitus Start:25-Mar-2015 Instruction Type:Patient Education Patient Instructions Indication:Type II diabetes mellitus Start:25-Mar-2015 Instruction Type:Provider Instructions for Treatment [facility]; [facility] Work Phone: instructions* Name Dates Details Patient Instructions Indication:Ulnar neuropathy Start:31-May-2021 Instruction Type:Provider Instructions for Treatment How to Access Health Informa tion Online using Patient Portal and 3rd [employer] Apps Indication:Ulnar neuropathy Start:31-May-2021 Instruction Type:Patient Education How to access health informa tion online Indication:Benign essential hypertension Start:25-Nov-2015 Instruction Type:Patient Education How to access health informa tion online - Detail Indication:Benign essential hypertension Start:25-Nov-2015 Instruction Type:Patient Education Patient Instructions Indication:Benign essential hypertension Start:25-Nov-2015 Instruction Type:Provider Instructions for Treatment How to access health informa tion online Indication:Type II diabetes mellitus Start:25-Mar-2015 Instruction Type:Patient Education How to access health informa tion online - Detail Indication:Type II diabetes mellitus Start:25-Mar-2015 Instruction Type:Patient Education Patient Instructions Indication:Type II diabetes mellitus Start:25-Mar-2015 Instruction Type:Provider Instructions for Treatment [facility]; [facility] Work Phone: instructions* Name Dates Details Patient Instructions Indication:Ulnar neuropathy Start:31-May-2021 Instruction Type:Provider Instructions for Treatment How to Access Health Informa tion Online using Patient Portal and [employer]rd [employer] Apps Indication:Ulnar neuropathy Start:31-May-2021 Instruction Type:Patient Education How to access health informa tion online Indication:Benign essential hypertension Start:25-Nov-2015 Instruction Type:Patient Education How to access health informa tion online - Detail Indication:Benign essential hypertension Start:25-Nov-2015 Instruction Type:Patient Education Patient Instructions Indication:Benign essential hypertension Start:25-Nov-2015 Instruction Type:Provider Instructions for Treatment How to access health informa tion online Indication:Type II diabetes mellitus Start:25-Mar-2015 Instruction Type:Patient Education How to access health informa tion online - Detail Indication:Type II diabetes mellitus Start:25-Mar-2015 Instruction Type:Patient Education Patient Instructions Indication:Type II diabetes mellitus Start:25-Mar-2015 Instruction Type:Provider Instructions for Treatment [facility]; [facility] Work Phone: instructions* Name Dates Details Patient Instructions Indication:Ulnar neuropathy Start:31-May-2021 Instruction Type:Provider Instructions for Treatment How to Access Health Informa tion Online using Patient Portal and [employer]rd [employer] Apps Indication:Ulnar neuropathy Start:31-May-2021 Instruction Type:Patient Education How to access health informa tion online Indication:Benign essential hypertension Start:25-Nov-2015 Instruction Type:Patient Education How to access health informa tion online - Detail Indication:Benign essential hypertension Start:25-Nov-2015 Instruction Type:Patient Education Patient Instructions Indication:Benign essential hypertension Start:25-Nov-2015 Instruction Type:Provider Instructions for Treatment How to access health informa tion online Indication:Type II diabetes mellitus Start:25-Mar-2015 Instruction Type:Patient Education How to access health informa tion online - Detail Indication:Type II diabetes mellitus Start:25-Mar-2015 Instruction Type:Patient Education Patient Instructions Indication:Type II diabetes mellitus Start:25-Mar-2015 Instruction Type:Provider Instructions for Treatment [facility]; [facility] Work Phone: instructions* Name Dates Details Patient Instructions Indication:Ulnar neuropathy Start:31-May-2021 Instruction Type:Provider Instructions for Treatment How to Access Health Informa tion Online using Patient Portal and [employer]rd [employer] Apps Indication:Ulnar neuropathy Start:31-May-2021 Instruction Type:Patient Education How to access health informa tion online Indication:Benign essential hypertension Start:25-Nov-2015 Instruction Type:Patient Education How to access health informa tion online - Detail Indication:Benign essential hypertension Start:25-Nov-2015 Instruction Type:Patient Education Patient Instructions Indication:Benign essential hypertension Start:25-Nov-2015 Instruction Type:Provider Instructions for Treatment How to access health informa tion online Indication:Type II diabetes mellitus Start:25-Mar-2015 Instruction Type:Patient Education How to access health informa tion online - Detail Indication:Type II diabetes mellitus Start:25-Mar-2015 Instruction Type:Patient Education Patient Instructions Indication:Type II diabetes mellitus Start:25-Mar-2015 Instruction Type:Provider Instructions for Treatment [facility]; [facility] Work Phone: instructions* Name Dates Details Patient Instructions Indication:Ulnar neuropathy Start:31-May-2021 Instruction Type:Provider Instructions for Treatment How to Access Health Informa tion Online using Patient Portal and 3rd [employer] Apps Indication:Ulnar neuropathy Start:31-May-2021 Instruction Type:Patient Education How to access health informa tion online Indication:Benign essential hypertension Start:25-Nov-2015 Instruction Type:Patient Education How to access health informa tion online - Detail Indication:Benign essential hypertension Start:25-Nov-2015 Instruction Type:Patient Education Patient Instructions Indication:Benign essential hypertension Start:25-Nov-2015 Instruction Type:Provider Instructions for Treatment How to access health informa tion online Indication:Type II diabetes mellitus Start:25-Mar-2015 Instruction Type:Patient Education How to access health informa tion online - Detail Indication:Type II diabetes mellitus Start:25-Mar-2015 Instruction Type:Patient Education Patient Instructions Indication:Type II diabetes mellitus Start:25-Mar-2015 Instruction Type:Provider Instructions for Treatment [facility]; [facility] Work Phone: instructions* Name Dates Details Patient Instructions Indication:Ulnar neuropathy Start:31-May-2021 Instruction Type:Provider Instructions for Treatment How to Access Health Informa tion Online using Patient Portal and [employer]rd [employer] Apps Indication:Ulnar neuropathy Start:31-May-2021 Instruction Type:Patient Education How to access health informa tion online Indication:Benign essential hypertension Start:25-Nov-2015 Instruction Type:Patient Education How to access health informa tion online - Detail Indication:Benign essential hypertension Start:25-Nov-2015 Instruction Type:Patient Education Patient Instructions Indication:Benign essential hypertension Start:25-Nov-2015 Instruction Type:Provider Instructions for Treatment How to access health informa tion online Indication:Type II diabetes mellitus Start:25-Mar-2015 Instruction Type:Patient Education How to access health informa tion online - Detail Indication:Type II diabetes mellitus Start:25-Mar-2015 Instruction Type:Patient Education Patient Instructions Indication:Type II diabetes mellitus Start:25-Mar-2015 Instruction Type:Provider Instructions for Treatment [facility]; [facility] Work Phone: instructions* Name Dates Details Patient Instructions Indication:Ulnar neuropathy Start:31-May-2021 Instruction Type:Provider Instructions for Treatment How to Access Health Informa tion Online using Patient Portal and [employer]rd [employer] Apps Indication:Ulnar neuropathy Start:31-May-2021 Instruction Type:Patient Education How to access health informa tion online Indication:Benign essential hypertension Start:25-Nov-2015 Instruction Type:Patient Education How to access health informa tion online - Detail Indication:Benign essential hypertension Start:25-Nov-2015 Instruction Type:Patient Education Patient Instructions Indication:Benign essential hypertension Start:25-Nov-2015 Instruction Type:Provider Instructions for Treatment How to access health informa tion online Indication:Type II diabetes mellitus Start:25-Mar-2015 Instruction Type:Patient Education How to access health informa tion online - Detail Indication:Type II diabetes mellitus Start:25-Mar-2015 Instruction Type:Patient Education Patient Instructions Indication:Type II diabetes mellitus Start:25-Mar-2015 Instruction Type:Provider Instructions for Treatment [facility]; [facility] Work Phone: instructions* Name Dates Details Patient Instructions Indication:Ulnar neuropathy Start:31-May-2021 Instruction Type:Provider Instructions for Treatment How to Access Health Informa tion Online using Patient Portal and [employer]rd [employer] Apps Indication:Ulnar neuropathy Start:31-May-2021 Instruction Type:Patient Education How to access health informa tion online Indication:Benign essential hypertension Start:25-Nov-2015 Instruction Type:Patient Education How to access health informa tion online - Detail Indication:Benign essential hypertension Start:25-Nov-2015 Instruction Type:Patient Education Patient Instructions Indication:Benign essential hypertension Start:25-Nov-2015 Instruction Type:Provider Instructions for Treatment How to access health informa tion online Indication:Type II diabetes mellitus Start:25-Mar-2015 Instruction Type:Patient Education How to access health informa tion online - Detail Indication:Type II diabetes mellitus Start:25-Mar-2015 Instruction Type:Patient Education Patient Instructions Indication:Type II diabetes mellitus Start:25-Mar-2015 Instruction Type:Provider Instructions for Treatment [facility]; [facility] Work Phone: instructions* Name Dates Details Patient Instructions Indication:Ulnar neuropathy Start:31-May-2021 Instruction Type:Provider Instructions for Treatment How to Access Health Informa tion Online using Patient Portal and [employer]rd [employer] Apps Indication:Ulnar neuropathy Start:31-May-2021 Instruction Type:Patient Education How to access health informa tion online Indication:Benign essential hypertension Start:25-Nov-2015 Instruction Type:Patient Education How to access health informa tion online - Detail Indication:Benign essential hypertension Start:25-Nov-2015 Instruction Type:Patient Education Patient Instructions Indication:Benign essential hypertension Start:25-Nov-2015 Instruction Type:Provider Instructions for Treatment How to access health informa tion online Indication:Type II diabetes mellitus Start:25-Mar-2015 Instruction Type:Patient Education How to access health informa tion online - Detail Indication:Type II diabetes mellitus Start:25-Mar-2015 Instruction Type:Patient Education Patient Instructions Indication:Type II diabetes mellitus Start:25-Mar-2015 Instruction Type:Provider Instructions for Treatment [facility]; [facility] Work Phone: [employer]* Name Dates Details Patient Instructions Indication:Ulnar neuropathy Start:31-May-2021 Instruction Type:Provider Instructions for Treatment How to Access Health Informa tion Online using Patient Portal and [employer]rd [employer] Apps Indication:Ulnar neuropathy Start:31-May-2021 Instruction Type:Patient Education How to access health informa tion online Indication:Benign essential hypertension Start:25-Nov-2015 Instruction Type:Patient Education How to access health informa tion online - Detail Indication:Benign essential hypertension Start:25-Nov-2015 Instruction Type:Patient Education Patient Instructions Indication:Benign essential hypertension Start:25-Nov-2015 Instruction Type:Provider Instructions for Treatment How to access health informa tion online Indication:Type II diabetes mellitus Start:25-Mar-2015 Instruction Type:Patient Education How to access health informa tion online - Detail Indication:Type II diabetes mellitus Start:25-Mar-2015 Instruction Type:Patient Education Patient Instructions Indication:Type II diabetes mellitus Start:25-Mar-2015 Instruction Type:Provider Instructions for Treatment [facility]; [facility] Work Phone: instructions* Name Dates Details Patient Instructions Indication:Ulnar neuropathy Start:31-May-2021 Instruction Type:Provider Instructions for Treatment How to Access Health Informa tion Online using Patient Portal and [employer]rd [employer] Apps Indication:Ulnar neuropathy Start:31-May-2021 Instruction Type:Patient Education How to access health informa tion online Indication:Benign essential hypertension Start:25-Nov-2015 Instruction Type:Patient Education How to access health informa tion online - Detail Indication:Benign essential hypertension Start:25-Nov-2015 Instruction Type:Patient Education Patient Instructions Indication:Benign essential hypertension Start:25-Nov-2015 Instruction Type:Provider Instructions for Treatment How to access health informa tion online Indication:Type II diabetes mellitus Start:25-Mar-2015 Instruction Type:Patient Education How to access health informa tion online - Detail Indication:Type II diabetes mellitus Start:25-Mar-2015 Instruction Type:Patient Education Patient Instructions Indication:Type II diabetes mellitus Start:25-Mar-2015 Instruction Type:Provider Instructions for Treatment [facility]; [facility] Work Phone: [employer]* Name Dates Details Patient Instructions Indication:Urinary frequency Start:22-Apr-2022 Instruction Type:Provider Instructions for Treatment Patient Instructions Indication:Ulnar neuropathy Start:31-May-2021 Instruction Type:Provider Instructions for Treatment How to Access Health Informa tion Online using Patient Portal and [employer]rd [employer] Apps Indication:Ulnar neuropathy Start:31-May-2021 Instruction Type:Patient Education How to access health informa tion online Indication:Benign essential hypertension Start:25-Nov-2015 Instruction Type:Patient Education How to access health informa tion online - Detail Indication:Benign essential hypertension Start:25-Nov-2015 Instruction Type:Patient Education Patient Instructions Indication:Benign essential hypertension Start:25-Nov-2015 Instruction Type:Provider Instructions for Treatment How to access health informa tion online Indication:Type II diabetes mellitus Start:25-Mar-2015 Instruction Type:Patient Education How to access health informa tion online - Detail Indication:Type II diabetes mellitus Start:25-Mar-2015 Instruction Type:Patient Education Patient Instructions Indication:Type II diabetes mellitus Start:25-Mar-2015 Instruction Type:Provider Instructions for Treatment [facility]; [facility] Work Phone: instructions* Name Dates Details Patient Instructions Indication:Urinary frequency Start:22-Apr-2022 Instruction Type:Provider Instructions for Treatment Patient Instructions Indication:Ulnar neuropathy Start:31-May-2021 Instruction Type:Provider Instructions for Treatment How to Access Health Informa tion Online using Patient Portal and [employer] Apps Indication:Ulnar neuropathy Start:31-May-2021 Instruction Type:Patient Education How to access health informa tion online Indication:Benign essential hypertension Start:25-Nov-2015 Instruction Type:Patient Education How to access health informa tion online - Detail Indication:Benign essential hypertension Start:25-Nov-2015 Instruction Type:Patient Education Patient Instructions Indication:Benign essential hypertension Start:25-Nov-2015 Instruction Type:Provider Instructions for Treatment How to access health informa tion online Indication:Type II diabetes mellitus Start:25-Mar-2015 Instruction Type:Patient Education How to access health informa tion online - Detail Indication:Type II diabetes mellitus Start:25-Mar-2015 Instruction Type:Patient Education Patient Instructions Indication:Type II diabetes mellitus Start:25-Mar-2015 Instruction Type:Provider Instructions for Treatment [facility]; [facility] Work Phone: [employer]* Name Dates Details Patient Instructions Indication:Urinary frequency Start:22-Apr-2022 Instruction Type:Provider Instructions for Treatment Patient Instructions Indication:Ulnar neuropathy Start:31-May-2021 Instruction Type:Provider Instructions for Treatment How to Access Health Informa tion Online using Patient Portal and [employer]rd [employer] Apps Indication:Ulnar neuropathy Start:31-May-2021 Instruction Type:Patient Education How to access health informa tion online Indication:Benign essential hypertension Start:25-Nov-2015 Instruction Type:Patient Education How to access health informa tion online - Detail Indication:Benign essential hypertension Start:25-Nov-2015 Instruction Type:Patient Education Patient Instructions Indication:Benign essential hypertension Start:25-Nov-2015 Instruction Type:Provider Instructions for Treatment How to access health informa tion online Indication:Type II diabetes mellitus Start:25-Mar-2015 Instruction Type:Patient Education How to access health informa tion online - Detail Indication:Type II diabetes mellitus Start:25-Mar-2015 Instruction Type:Patient Education Patient Instructions Indication:Type II diabetes mellitus Start:25-Mar-2015 Instruction Type:Provider Instructions for Treatment [facility]; [facility] Work Phone: instructions* Name Dates Details Patient Instructions Indication:Urinary frequency Start:22-Apr-2022 Instruction Type:Provider Instructions for Treatment Patient Instructions Indication:Ulnar neuropathy Start:31-May-2021 Instruction Type:Provider Instructions for Treatment How to Access Health Informa tion Online using Patient Portal and [employer] Apps Indication:Ulnar neuropathy Start:31-May-2021 Instruction Type:Patient Education How to access health informa tion online Indication:Benign essential hypertension Start:25-Nov-2015 Instruction Type:Patient Education How to access health informa tion online - Detail Indication:Benign essential hypertension Start:25-Nov-2015 Instruction Type:Patient Education Patient Instructions Indication:Benign essential hypertension Start:25-Nov-2015 Instruction Type:Provider Instructions for Treatment How to access health informa tion online Indication:Type II diabetes mellitus Start:25-Mar-2015 Instruction Type:Patient Education How to access health informa tion online - Detail Indication:Type II diabetes mellitus Start:25-Mar-2015 Instruction Type:Patient Education Patient Instructions Indication:Type II diabetes mellitus Start:25-Mar-2015 Instruction Type:Provider Instructions for Treatment [facility]; [facility] Work Phone: instructions* Name Dates Details Patient Instructions Indication:Urinary frequency Start:22-Apr-2022 Instruction Type:Provider Instructions for Treatment Patient Instructions Indication:Ulnar neuropathy Start:31-May-2021 Instruction Type:Provider Instructions for Treatment How to Access Health Informa tion Online using Patient Portal and [employer]rd [employer] Apps Indication:Ulnar neuropathy Start:31-May-2021 Instruction Type:Patient Education How to access health informa tion online Indication:Benign essential hypertension Start:25-Nov-2015 Instruction Type:Patient Education How to access health informa tion online - Detail Indication:Benign essential hypertension Start:25-Nov-2015 Instruction Type:Patient Education Patient Instructions Indication:Benign essential hypertension Start:25-Nov-2015 Instruction Type:Provider Instructions for Treatment How to access health informa tion online Indication:Type II diabetes mellitus Start:25-Mar-2015 Instruction Type:Patient Education How to access health informa tion online - Detail Indication:Type II diabetes mellitus Start:25-Mar-2015 Instruction Type:Patient Education Patient Instructions Indication:Type II diabetes mellitus Start:25-Mar-2015 Instruction Type:Provider Instructions for Treatment [facility]; [facility] Work Phone: instructions* Name Dates Details Patient Instructions Indication:[facility] EX[facility] Start:09-Jul-2022 Instruction Type:Provider Instructions for Treatment Patient Instructions Indication:Urinary frequency Start:22-Apr-2022 Instruction Type:Provider Instructions for Treatment Patient Instructions Indication:Ulnar neuropathy Start:31-May-2021 Instruction Type:Provider Instructions for Treatment How to Access Health Informa tion Online using Patient Portal and [employer] Apps Indication:Ulnar neuropathy Start:31-May-2021 Instruction Type:Patient Education How to access health informa tion online Indication:Benign essential hypertension Start:25-Nov-2015 Instruction Type:Patient Education How to access health informa tion online - Detail Indication:Benign essential hypertension Start:25-Nov-2015 Instruction Type:Patient Education Patient Instructions Indication:Benign essential hypertension Start:25-Nov-2015 Instruction Type:Provider Instructions for Treatment How to access health informa tion online Indication:Type II diabetes mellitus Start:25-Mar-2015 Instruction Type:Patient Education How to access health informa tion online - Detail Indication:Type II diabetes mellitus Start:25-Mar-2015 Instruction Type:Patient Education Patient Instructions Indication:Type II diabetes mellitus Start:25-Mar-2015 Instruction Type:Provider Instructions for Treatment [facility]; [facility] Work Phone: Instructions* Name Dates Details Patient Instructions Indication:[facility] Start:09-Jul-2022 Instruction Type:Provider Instructions for Treatment Patient Instructions Indication:Urinary frequency Start:22-Apr-2022 Instruction Type:Provider Instructions for Treatment Patient Instructions Indication:Ulnar neuropathy Start:31-May-2021 Instruction Type:Provider Instructions for Treatment How to Access Health Informa tion Online using Patient Portal and [employer] Apps Indication:Ulnar neuropathy Start:31-May-2021 Instruction Type:Patient Education How to access health informa tion online Indication:Benign essential hypertension Start:25-Nov-2015 Instruction Type:Patient Education How to access health informa tion online - Detail Indication:Benign essential hypertension Start:25-Nov-2015 Instruction Type:Patient Education Patient Instructions Indication:Benign essential hypertension Start:25-Nov-2015 Instruction Type:Provider Instructions for Treatment How to access health informa tion online Indication:Type II diabetes mellitus Start:25-Mar-2015 Instruction Type:Patient Education How to access health informa tion online - Detail Indication:Type II diabetes mellitus Start:25-Mar-2015 Instruction Type:Patient Education Patient Instructions Indication:Type II diabetes mellitus Start:25-Mar-2015 Instruction Type:Provider Instructions for Treatment [facility]; [facility] Work Phone: instructions* Name Dates Details Patient Instructions Indication:[facility] Start:09-Jul-2022 Instruction Type:Provider Instructions for Treatment Patient Instructions Indication:Urinary frequency Start:22-Apr-2022 Instruction Type:Provider Instructions for Treatment Patient Instructions Indication:Ulnar neuropathy Start:31-May-2021 Instruction Type:Provider Instructions for Treatment How to Access Health Informa tion Online using Patient Portal and [employer] Apps Indication:Ulnar neuropathy Start:31-May-2021 Instruction Type:Patient Education How to access health informa tion online Indication:Benign essential hypertension Start:25-Nov-2015 Instruction Type:Patient Education How to access health informa tion online - Detail Indication:Benign essential hypertension Start:25-Nov-2015 Instruction Type:Patient Education Patient Instructions Indication:Benign essential hypertension Start:25-Nov-2015 Instruction Type:Provider Instructions for Treatment How to access health informa tion online Indication:Type II diabetes mellitus Start:25-Mar-2015 Instruction Type:Patient Education How to access health informa tion online - Detail Indication:Type II diabetes mellitus Start:25-Mar-2015 Instruction Type:Patient Education Patient Instructions Indication:Type II diabetes mellitus Start:25-Mar-2015 Instruction Type:Provider Instructions for Treatment [facility]; [facility] Work Phone: instructions* Name Dates Details Patient Instructions Indication:[facility] Start:09-Jul-2022 Instruction Type:Provider Instructions for Treatment Patient Instructions Indication:Urinary frequency Start:22-Apr-2022 Instruction Type:Provider Instructions for Treatment Patient Instructions Indication:Ulnar neuropathy Start:31-May-2021 Instruction Type:Provider Instructions for Treatment How to Access Health Informa tion Online using Patient Portal and [employer] Apps Indication:Ulnar neuropathy Start:31-May-2021 Instruction Type:Patient Education How to access health informa tion online Indication:Benign essential hypertension Start:25-Nov-2015 Instruction Type:Patient Education How to access health informa tion online - Detail Indication:Benign essential hypertension Start:25-Nov-2015 Instruction Type:Patient Education Patient Instructions Indication:Benign essential hypertension Start:25-Nov-2015 Instruction Type:Provider Instructions for Treatment How to access health informa tion online Indication:Type II diabetes mellitus Start:25-Mar-2015 Instruction Type:Patient Education How to access health informa tion online - Detail Indication:Type II diabetes mellitus Start:25-Mar-2015 Instruction Type:Patient Education Patient Instructions Indication:Type II diabetes mellitus Start:25-Mar-2015 Instruction Type:Provider Instructions for Treatment [facility]; [facility] Work Phone: instructions* Name Dates Details Patient Instructions Indication:[facility] Start:09-Jul-2022 Instruction Type:Provider Instructions for Treatment Patient Instructions Indication:Urinary frequency Start:22-Apr-2022 Instruction Type:Provider Instructions for Treatment Patient Instructions Indication:Ulnar neuropathy Start:31-May-2021 Instruction Type:Provider Instructions for Treatment How to Access Health Informa tion Online using Patient Portal and [employer] Apps Indication:Ulnar neuropathy Start:31-May-2021 Instruction Type:Patient Education How to access health informa tion online Indication:Benign essential hypertension Start:25-Nov-2015 Instruction Type:Patient Education How to access health informa tion online - Detail Indication:Benign essential hypertension Start:25-Nov-2015 Instruction Type:Patient Education Patient Instructions Indication:Benign essential hypertension Start:25-Nov-2015 Instruction Type:Provider Instructions for Treatment How to access health informa tion online Indication:Type II diabetes mellitus Start:25-Mar-2015 Instruction Type:Patient Education How to access health informa tion online - Detail Indication:Type II diabetes mellitus Start:25-Mar-2015 Instruction Type:Patient Education Patient Instructions Indication:Type II diabetes mellitus Start:25-Mar-2015 Instruction Type:Provider Instructions for Treatment [facility]; [facility] Work Phone: instructions* Name Dates Details Patient Instructions Indication:[facility] Start:09-Jul-2022 Instruction Type:Provider Instructions for Treatment Patient Instructions Indication:Urinary frequency Start:22-Apr-2022 Instruction Type:Provider Instructions for Treatment Patient Instructions Indication:Ulnar neuropathy Start:31-May-2021 Instruction Type:Provider Instructions for Treatment How to Access Health Informa tion Online using Patient Portal and [employer] Apps Indication:Ulnar neuropathy Start:31-May-2021 Instruction Type:Patient Education How to access health informa tion online Indication:Benign essential hypertension Start:25-Nov-2015 Instruction Type:Patient Education How to access health informa tion online - Detail Indication:Benign essential hypertension Start:25-Nov-2015 Instruction Type:Patient Education Patient Instructions Indication:Benign essential hypertension Start:25-Nov-2015 Instruction Type:Provider Instructions for Treatment How to access health informa tion online Indication:Type II diabetes mellitus Start:25-Mar-2015 Instruction Type:Patient Education How to access health informa tion online - Detail Indication:Type II diabetes mellitus Start:25-Mar-2015 Instruction Type:Patient Education Patient Instructions Indication:Type II diabetes mellitus Start:25-Mar-2015 Instruction Type:Provider Instructions for Treatment [facility]; [facility] Work Phone: instructions* Name Dates Details Patient Instructions Indication:[facility] Start:09-Jul-2022 Instruction Type:Provider Instructions for Treatment Patient Instructions Indication:Urinary frequency Start:22-Apr-2022 Instruction Type:Provider Instructions for Treatment Patient Instructions Indication:Ulnar neuropathy Start:31-May-2021 Instruction Type:Provider Instructions for Treatment How to Access Health Informa tion Online using Patient Portal and [employer] Apps Indication:Ulnar neuropathy Start:31-May-2021 Instruction Type:Patient Education How to access health informa tion online Indication:Benign essential hypertension Start:25-Nov-2015 Instruction Type:Patient Education How to access health informa tion online - Detail Indication:Benign essential hypertension Start:25-Nov-2015 Instruction Type:Patient Education Patient Instructions Indication:Benign essential hypertension Start:25-Nov-2015 Instruction Type:Provider Instructions for Treatment How to access health informa tion online Indication:Type II diabetes mellitus Start:25-Mar-2015 Instruction Type:Patient Education How to access health informa tion online - Detail Indication:Type II diabetes mellitus Start:25-Mar-2015 Instruction Type:Patient Education Patient Instructions Indication:Type II diabetes mellitus Start:25-Mar-2015 Instruction Type:Provider Instructions for Treatment [facility]; [facility] Work Phone: instructions* Name Dates Details Patient Instructions Indication:[facility] Start:09-Jul-2022 Instruction Type:Provider Instructions for Treatment Patient Instructions Indication:Urinary frequency Start:22-Apr-2022 Instruction Type:Provider Instructions for Treatment Patient Instructions Indication:Ulnar neuropathy Start:31-May-2021 Instruction Type:Provider Instructions for Treatment How to Access Health Informa tion Online using Patient Portal and [employer] Apps Indication:Ulnar neuropathy Start:31-May-2021 Instruction Type:Patient Education How to access health informa tion online Indication:Benign essential hypertension Start:25-Nov-2015 Instruction Type:Patient Education How to access health informa tion online - Detail Indication:Benign essential hypertension Start:25-Nov-2015 Instruction Type:Patient Education Patient Instructions Indication:Benign essential hypertension Start:25-Nov-2015 Instruction Type:Provider Instructions for Treatment How to access health informa tion online Indication:Type II diabetes mellitus Start:25-Mar-2015 Instruction Type:Patient Education How to access health informa tion online - Detail Indication:Type II diabetes mellitus Start:25-Mar-2015 Instruction Type:Patient Education Patient Instructions Indication:Type II diabetes mellitus Start:25-Mar-2015 Instruction Type:Provider Instructions for Treatment [facility]; [facility] Work Phone: instructions* Name Dates Details Patient Instructions Indication:[facility] Start:09-Jul-2022 Instruction Type:Provider Instructions for Treatment Patient Instructions Indication:Urinary frequency Start:22-Apr-2022 Instruction Type:Provider Instructions for Treatment Patient Instructions Indication:Ulnar neuropathy Start:31-May-2021 Instruction Type:Provider Instructions for Treatment How to Access Health Informa tion Online using Patient Portal and [employer] Apps Indication:Ulnar neuropathy Start:31-May-2021 Instruction Type:Patient Education How to access health informa tion online Indication:Benign essential hypertension Start:25-Nov-2015 Instruction Type:Patient Education How to access health informa tion online - Detail Indication:Benign essential hypertension Start:25-Nov-2015 Instruction Type:Patient Education Patient Instructions Indication:Benign essential hypertension Start:25-Nov-2015 Instruction Type:Provider Instructions for Treatment How to access health informa tion online Indication:Type II diabetes mellitus Start:25-Mar-2015 Instruction Type:Patient Education How to access health informa tion online - Detail Indication:Type II diabetes mellitus Start:25-Mar-2015 Instruction Type:Patient Education Patient Instructions Indication:Type II diabetes mellitus Start:25-Mar-2015 Instruction Type:Provider Instructions for Treatment [facility]; [facility] Work Phone: instructions* Name Dates Details Patient Instructions Indication:Back pain Start:12-Sep-2022 Instruction Type:Provider Instructions for Treatment How to Access Health Informa tion Online using Patient Portal and [employer] Apps Indication:Back pain Start:12-Sep-2022 Instruction Type:Patient Education Patient Instructions Indication:[facility] Start:09-Jul-2022 Instruction Type:Provider Instructions for Treatment Patient Instructions Indication:Urinary frequency Start:22-Apr-2022 Instruction Type:Provider Instructions for Treatment Patient Instructions Indication:Ulnar neuropathy Start:31-May-2021 Instruction Type:Provider Instructions for Treatment How to Access Health Informa tion Online using Patient Portal and [employer] Apps Indication:Ulnar neuropathy Start:31-May-2021 Instruction Type:Patient Education How to access health informa tion online Indication:Benign essential hypertension Start:25-Nov-2015 Instruction Type:Patient Education How to access health informa tion online - Detail Indication:Benign essential hypertension Start:25-Nov-2015 Instruction Type:Patient Education Patient Instructions Indication:Benign essential hypertension Start:25-Nov-2015 Instruction Type:Provider Instructions for Treatment How to access health informa tion online Indication:Type II diabetes mellitus Start:25-Mar-2015 Instruction Type:Patient Education How to access health informa tion online - Detail Indication:Type II diabetes mellitus Start:25-Mar-2015 Instruction Type:Patient Education Patient Instructions Indication:Type II diabetes mellitus Start:25-Mar-2015 Instruction Type:Provider Instructions for Treatment [facility]; [facility] Work Phone: Instructions* Name Dates Details Patient Instructions Indication:Diabetes type 1, controlled Start:12-Sep-2022 Instruction Type:Provider Instructions for Treatment How to Access Health Informa tion Online using Patient Portal and [employer] Apps Indication:Diabetes type 1, controlled Start:12-Sep-2022 Instruction Type:Patient Education Patient Instructions Indication:[facility] Start:09-Jul-2022 Instruction Type:Provider Instructions for Treatment Patient Instructions Indication:Urinary frequency Start:22-Apr-2022 Instruction Type:Provider Instructions for Treatment Patient Instructions Indication:Ulnar neuropathy Start:31-May-2021 Instruction Type:Provider Instructions for Treatment How to Access Health Informa tion Online using Patient Portal and [employer] Apps Indication:Ulnar neuropathy Start:31-May-2021 Instruction Type:Patient Education How to access health informa tion online Indication:Benign essential hypertension Start:25-Nov-2015 Instruction Type:Patient Education How to access health informa tion online - Detail Indication:Benign essential hypertension Start:25-Nov-2015 Instruction Type:Patient Education Patient Instructions Indication:Benign essential hypertension Start:25-Nov-2015 Instruction Type:Provider Instructions for Treatment How to access health informa tion online Indication:Type II diabetes mellitus Start:25-Mar-2015 Instruction Type:Patient Education How to access health informa tion online - Detail Indication:Type II diabetes mellitus Start:25-Mar-2015 Instruction Type:Patient Education Patient Instructions Indication:Type II diabetes mellitus Start:25-Mar-2015 Instruction Type:Provider Instructions for Treatment [facility]; [facility] Work Phone: instructions* Name Dates Details Patient Instructions Indication:Diabetes type 1, controlled Start:12-Sep-2022 Instruction Type:Provider Instructions for Treatment How to Access Health Informa tion Online using Patient Portal and [employer] Apps Indication:Diabetes type 1, controlled Start:12-Sep-2022 Instruction Type:Patient Education Patient Instructions Indication:[facility] EX[facility] Start:09-Jul-2022 Instruction Type:Provider Instructions for Treatment Patient Instructions Indication:Urinary frequency Start:22-Apr-2022 Instruction Type:Provider Instructions for Treatment Patient Instructions Indication:Ulnar neuropathy Start:31-May-2021 Instruction Type:Provider Instructions for Treatment How to Access Health Informa tion Online using Patient Portal and [employer] Apps Indication:Ulnar neuropathy Start:31-May-2021 Instruction Type:Patient Education How to access health informa tion online Indication:Benign essential hypertension Start:25-Nov-2015 Instruction Type:Patient Education How to access health informa tion online - Detail Indication:Benign essential hypertension Start:25-Nov-2015 Instruction Type:Patient Education Patient Instructions Indication:Benign essential hypertension Start:25-Nov-2015 Instruction Type:Provider Instructions for Treatment How to access health informa tion online Indication:Type II diabetes mellitus Start:25-Mar-2015 Instruction Type:Patient Education How to access health informa tion online - Detail Indication:Type II diabetes mellitus Start:25-Mar-2015 Instruction Type:Patient Education Patient Instructions Indication:Type II diabetes mellitus Start:25-Mar-2015 Instruction Type:Provider Instructions for Treatment [facility]; [facility] Work Phone: instructions* Name Dates Details Patient Instructions Indication:Diabetes type 1, controlled Start:12-Sep-2022 Instruction Type:Provider Instructions for Treatment How to Access Health Informa tion Online using Patient Portal and [employer] Apps Indication:Diabetes type 1, controlled Start:12-Sep-2022 Instruction Type:Patient Education Patient Instructions Indication:[facility] EX[facility] Start:09-Jul-2022 Instruction Type:Provider Instructions for Treatment Patient Instructions Indication:Urinary frequency Start:22-Apr-2022 Instruction Type:Provider Instructions for Treatment Patient Instructions Indication:Ulnar neuropathy Start:31-May-2021 Instruction Type:Provider Instructions for Treatment How to Access Health Informa tion Online using Patient Portal and [employer] Apps Indication:Ulnar neuropathy Start:31-May-2021 Instruction Type:Patient Education How to access health informa tion online Indication:Benign essential hypertension Start:25-Nov-2015 Instruction Type:Patient Education How to access health informa tion online - Detail Indication:Benign essential hypertension Start:25-Nov-2015 Instruction Type:Patient Education Patient Instructions Indication:Benign essential hypertension Start:25-Nov-2015 Instruction Type:Provider Instructions for Treatment How to access health informa tion online Indication:Type II diabetes mellitus Start:25-Mar-2015 Instruction Type:Patient Education How to access health informa tion online - Detail Indication:Type II diabetes mellitus Start:25-Mar-2015 Instruction Type:Patient Education Patient Instructions Indication:Type II diabetes mellitus Start:25-Mar-2015 Instruction Type:Provider Instructions for Treatment [facility]; [facility] Work Phone: Instructions* Name Dates Details Patient Instructions Indication:Diabetes type 1, controlled Start:12-Sep-2022 Instruction Type:Provider Instructions for Treatment How to Access Health Informa tion Online using Patient Portal and [employer] Apps Indication:Diabetes type 1, controlled Start:12-Sep-2022 Instruction Type:Patient Education Patient Instructions Indication:[facility] EX[facility] Start:09-Jul-2022 Instruction Type:Provider Instructions for Treatment Patient Instructions Indication:Urinary frequency Start:22-Apr-2022 Instruction Type:Provider Instructions for Treatment Patient Instructions Indication:Ulnar neuropathy Start:31-May-2021 Instruction Type:Provider Instructions for Treatment How to Access Health Informa tion Online using Patient Portal and [employer] Apps Indication:Ulnar neuropathy Start:31-May-2021 Instruction Type:Patient Education How to access health informa tion online Indication:Benign essential hypertension Start:25-Nov-2015 Instruction Type:Patient Education How to access health informa tion online - Detail Indication:Benign essential hypertension Start:25-Nov-2015 Instruction Type:Patient Education Patient Instructions Indication:Benign essential hypertension Start:25-Nov-2015 Instruction Type:Provider Instructions for Treatment How to access health informa tion online Indication:Type II diabetes mellitus Start:25-Mar-2015 Instruction Type:Patient Education How to access health informa tion online - Detail Indication:Type II diabetes mellitus Start:25-Mar-2015 Instruction Type:Patient Education Patient Instructions Indication:Type II diabetes mellitus Start:25-Mar-2015 Instruction Type:Provider Instructions for Treatment [facility]; [facility] Work Phone: instructions* Name Dates Details Patient Instructions Indication:Diabetes type 1, controlled Start:12-Sep-2022 Instruction Type:Provider Instructions for Treatment How to Access Health Informa tion Online using Patient Portal and [employer] Apps Indication:Diabetes type 1, controlled Start:12-Sep-2022 Instruction Type:Patient Education Patient Instructions Indication:[facility] EX[facility] Start:09-Jul-2022 Instruction Type:Provider Instructions for Treatment Patient Instructions Indication:Urinary frequency Start:22-Apr-2022 Instruction Type:Provider Instructions for Treatment Patient Instructions Indication:Ulnar neuropathy Start:31-May-2021 Instruction Type:Provider Instructions for Treatment How to Access Health Informa tion Online using Patient Portal and [employer] Apps Indication:Ulnar neuropathy Start:31-May-2021 Instruction Type:Patient Education How to access health informa tion online Indication:Benign essential hypertension Start:25-Nov-2015 Instruction Type:Patient Education How to access health informa tion online - Detail Indication:Benign essential hypertension Start:25-Nov-2015 Instruction Type:Patient Education Patient Instructions Indication:Benign essential hypertension Start:25-Nov-2015 Instruction Type:Provider Instructions for Treatment How to access health informa tion online Indication:Type II diabetes mellitus Start:25-Mar-2015 Instruction Type:Patient Education How to access health informa tion online - Detail Indication:Type II diabetes mellitus Start:25-Mar-2015 Instruction Type:Patient Education Patient Instructions Indication:Type II diabetes mellitus Start:25-Mar-2015 Instruction Type:Provider Instructions for Treatment [facility]; [facility] Work Phone: instructions* Name Dates Details Patient Instructions Indication:Diabetes type 1, controlled Start:17-Oct-2022 Instruction Type:Provider Instructions for Treatment How to Access Health Informa tion Online using Patient Portal and [employer]rd [employer] Apps Indication:Diabetes type 1, controlled Start:17-Oct-2022 Instruction Type:Patient Education Patient Instructions Indication:Diabetes type 1, controlled Start:12-Sep-2022 Instruction Type:Provider Instructions for Treatment How to Access Health Informa tion Online using Patient Portal and [employer]rd [employer] Apps Indication:Diabetes type 1, controlled Start:12-Sep-2022 Instruction Type:Patient Education Patient Instructions Indication:[facility] EXAM Start:09-Jul-2022 Instruction Type:Provider Instructions for Treatment Patient Instructions Indication:Urinary frequency Start:22-Apr-2022 Instruction Type:Provider Instructions for Treatment Patient Instructions Indication:Ulnar neuropathy Start:31-May-2021 Instruction Type:Provider Instructions for Treatment How to Access Health Informa tion Online using Patient Portal and [employer]rd [employer] Apps Indication:Ulnar neuropathy Start:31-May-2021 Instruction Type:Patient Education How to access health informa tion online Indication:Benign essential hypertension Start:25-Nov-2015 Instruction Type:Patient Education How to access health informa tion online - Detail Indication:Benign essential hypertension Start:25-Nov-2015 Instruction Type:Patient Education Patient Instructions Indication:Benign essential hypertension Start:25-Nov-2015 Instruction Type:Provider Instructions for Treatment How to access health informa tion online Indication:Type II diabetes mellitus Start:25-Mar-2015 Instruction Type:Patient Education How to access health informa tion online - Detail Indication:Type II diabetes mellitus Start:25-Mar-2015 Instruction Type:Patient Education Patient Instructions Indication:Type II diabetes mellitus Start:25-Mar-2015 Instruction Type:Provider Instructions for Treatment [facility]; [facility] Work Phone: Instructions* Name Dates Details Patient Instructions Indication:Diabetes type 1, controlled Start:17-Oct-2022 Instruction Type:Provider Instructions for Treatment How to Access Health Informa tion Online using Patient Portal and [employer]rd [employer] Apps Indication:Diabetes type 1, controlled Start:17-Oct-2022 Instruction Type:Patient Education Patient Instructions Indication:Diabetes type 1, controlled Start:12-Sep-2022 Instruction Type:Provider Instructions for Treatment How to Access Health Informa tion Online using Patient Portal and 3rd Republican Apps Indication:Diabetes type 1, controlled Start:12-Sep-2022 Instruction Type:Patient Education Patient Instructions Indication:[facility] Start:09-Jul-2022 Instruction Type:Provider Instructions for Treatment Patient Instructions Indication:Urinary frequency Start:22-Apr-2022 Instruction Type:Provider Instructions for Treatment Patient Instructions Indication:Ulnar neuropathy Start:31-May-2021 Instruction Type:Provider Instructions for Treatment How to Access Health Informa tion Online using Patient Portal and 3rd [employer] Apps Indication:Ulnar neuropathy Start:31-May-2021 Instruction Type:Patient Education How to access health informa tion online Indication:Benign essential hypertension Start:25-Nov-2015 Instruction Type:Patient Education How to access health informa tion online - Detail Indication:Benign essential hypertension Start:25-Nov-2015 Instruction Type:Patient Education Patient Instructions Indication:Benign essential hypertension Start:25-Nov-2015 Instruction Type:Provider Instructions for Treatment How to access health informa tion online Indication:Type II diabetes mellitus Start:25-Mar-2015 Instruction Type:Patient Education How to access health informa tion online - Detail Indication:Type II diabetes mellitus Start:25-Mar-2015 Instruction Type:Patient Education Patient Instructions Indication:Type II diabetes mellitus Start:25-Mar-2015 Instruction Type:Provider Instructions for Treatment [facility]; [facility] Work Phone: Instructions* Name Dates Details Patient Instructions Indication:Diabetes type 1, controlled Start:17-Oct-2022 Instruction Type:Provider Instructions for Treatment How to Access Health Informa tion Online using Patient Portal and [employer]rd [employer] Apps Indication:Diabetes type 1, controlled Start:17-Oct-2022 Instruction Type:Patient Education Patient Instructions Indication:Diabetes type 1, controlled Start:12-Sep-2022 Instruction Type:Provider Instructions for Treatment How to Access Health Informa tion Online using Patient Portal and [employer] Republican Apps Indication:Diabetes type 1, controlled Start:12-Sep-2022 Instruction Type:Patient Education Patient Instructions Indication:[facility] Start:09-Jul-2022 Instruction Type:Provider Instructions for Treatment Patient Instructions Indication:Urinary frequency Start:22-Apr-2022 Instruction Type:Provider Instructions for Treatment Patient Instructions Indication:Ulnar neuropathy Start:31-May-2021 Instruction Type:Provider Instructions for Treatment How to Access Health Informa tion Online using Patient Portal and 3rd [employer] Apps Indication:Ulnar neuropathy Start:31-May-2021 Instruction Type:Patient Education How to access health informa tion online Indication:Benign essential hypertension Start:25-Nov-2015 Instruction Type:Patient Education How to access health informa tion online - Detail Indication:Benign essential hypertension Start:25-Nov-2015 Instruction Type:Patient Education Patient Instructions Indication:Benign essential hypertension Start:25-Nov-2015 Instruction Type:Provider Instructions for Treatment How to access health informa tion online Indication:Type II diabetes mellitus Start:25-Mar-2015 Instruction Type:Patient Education How to access health informa tion online - Detail Indication:Type II diabetes mellitus Start:25-Mar-2015 Instruction Type:Patient Education Patient Instructions Indication:Type II diabetes mellitus Start:25-Mar-2015 Instruction Type:Provider Instructions for Treatment [facility]; [facility] Work Phone: Instructions* Name Dates Details Patient Instructions Indication:Diabetes type 1, controlled Start:17-Oct-2022 Instruction Type:Provider Instructions for Treatment How to Access Health Informa tion Online using Patient Portal and [employer] Apps Indication:Diabetes type 1, controlled Start:17-Oct-2022 Instruction Type:Patient Education Patient Instructions Indication:Diabetes type 1, controlled Start:12-Sep-2022 Instruction Type:Provider Instructions for Treatment How to Access Health Informa tion Online using Patient Portal and [employer] Apps Indication:Diabetes type 1, controlled Start:12-Sep-2022 Instruction Type:Patient Education Patient Instructions Indication:[facility] Start:09-Jul-2022 Instruction Type:Provider Instructions for Treatment Patient Instructions Indication:Urinary frequency Start:22-Apr-2022 Instruction Type:Provider Instructions for Treatment Patient Instructions Indication:Ulnar neuropathy Start:31-May-2021 Instruction Type:Provider Instructions for Treatment How to Access Health Informa tion Online using Patient Portal and [employer]rd [employer] Apps Indication:Ulnar neuropathy Start:31-May-2021 Instruction Type:Patient Education How to access health informa tion online Indication:Benign essential hypertension Start:25-Nov-2015 Instruction Type:Patient Education How to access health informa tion online - Detail Indication:Benign essential hypertension Start:25-Nov-2015 Instruction Type:Patient Education Patient Instructions Indication:Benign essential hypertension Start:25-Nov-2015 Instruction Type:Provider Instructions for Treatment How to access health informa tion online Indication:Type II diabetes mellitus Start:25-Mar-2015 Instruction Type:Patient Education How to access health informa tion online - Detail Indication:Type II diabetes mellitus Start:25-Mar-2015 Instruction Type:Patient Education Patient Instructions Indication:Type II diabetes mellitus Start:25-Mar-2015 Instruction Type:Provider Instructions for Treatment [facility]; [facility] Work Phone: instructions* Name Dates Details Patient Instructions Indication:Diabetes type 1, controlled Start:17-Oct-2022 Instruction Type:Provider Instructions for Treatment How to Access Health Informa tion Online using Patient Portal and [employer] Apps Indication:Diabetes type 1, controlled Start:17-Oct-2022 Instruction Type:Patient Education Patient Instructions Indication:Diabetes type 1, controlled Start:12-Sep-2022 Instruction Type:Provider Instructions for Treatment How to Access Health Informa tion Online using Patient Portal and [employer] Apps Indication:Diabetes type 1, controlled Start:12-Sep-2022 Instruction Type:Patient Education Patient Instructions Indication:[facility] Start:09-Jul-2022 Instruction Type:Provider Instructions for Treatment Patient Instructions Indication:Urinary frequency Start:22-Apr-2022 Instruction Type:Provider Instructions for Treatment Patient Instructions Indication:Ulnar neuropathy Start:31-May-2021 Instruction Type:Provider Instructions for Treatment How to Access Health Informa tion Online using Patient Portal and [employer] Apps Indication:Ulnar neuropathy Start:31-May-2021 Instruction Type:Patient Education How to access health informa tion online Indication:Benign essential hypertension Start:25-Nov-2015 Instruction Type:Patient Education How to access health informa tion online - Detail Indication:Benign essential hypertension Start:25-Nov-2015 Instruction Type:Patient Education Patient Instructions Indication:Benign essential hypertension Start:25-Nov-2015 Instruction Type:Provider Instructions for Treatment How to access health informa tion online Indication:Type II diabetes mellitus Start:25-Mar-2015 Instruction Type:Patient Education How to access health informa tion online - Detail Indication:Type II diabetes mellitus Start:25-Mar-2015 Instruction Type:Patient Education Patient Instructions Indication:Type II diabetes mellitus Start:25-Mar-2015 Instruction Type:Provider Instructions for Treatment [facility]; [facility] Work Phone: instructions* Name Dates Details Patient Instructions Indication:Diabetes type 1, controlled Start:23-Jan-2023 Instruction Type:Provider Instructions for Treatment How to Access Health Informa tion Online using Patient Portal and [employer]rd Republican Apps Indication:Diabetes type 1, controlled Start:23-Jan-2023 Instruction Type:Patient Education Patient Instructions Indication:Diabetes type 1, controlled Start:17-Oct-2022 Instruction Type:Provider Instructions for Treatment How to Access Health Informa tion Online using Patient Portal and [employer] Apps Indication:Diabetes type 1, controlled Start:17-Oct-2022 Instruction Type:Patient Education Patient Instructions Indication:Diabetes type 1, controlled Start:12-Sep-2022 Instruction Type:Provider Instructions for Treatment How to Access Health Informa tion Online using Patient Portal and [employer] Apps Indication:Diabetes type 1, controlled Start:12-Sep-2022 Instruction Type:Patient Education Patient Instructions Indication:[facility] Start:09-Jul-2022 Instruction Type:Provider Instructions for Treatment Patient Instructions Indication:Urinary frequency Start:22-Apr-2022 Instruction Type:Provider Instructions for Treatment Patient Instructions Indication:Ulnar neuropathy Start:31-May-2021 Instruction Type:Provider Instructions for Treatment How to Access Health Informa tion Online using Patient Portal and 3rd Republican Apps Indication:Ulnar neuropathy Start:31-May-2021 Instruction Type:Patient Education How to access health informa tion online Indication:Benign essential hypertension Start:25-Nov-2015 Instruction Type:Patient Education How to access health informa tion online - Detail Indication:Benign essential hypertension Start:25-Nov-2015 Instruction Type:Patient Education Patient Instructions Indication:Benign essential hypertension Start:25-Nov-2015 Instruction Type:Provider Instructions for Treatment How to access health informa tion online Indication:Type II diabetes mellitus Start:25-Mar-2015 Instruction Type:Patient Education How to access health informa tion online - Detail Indication:Type II diabetes mellitus Start:25-Mar-2015 Instruction Type:Patient Education Patient Instructions Indication:Type II diabetes mellitus Start:25-Mar-2015 Instruction Type:Provider Instructions for Treatment [facility]; [facility] Work Phone: Instructions* Name Dates Details Patient Instructions Indication:Diabetes type 1, controlled Start:23-Jan-2023 Instruction Type:Provider Instructions for Treatment How to Access Health Informa tion Online using Patient Portal and 3rd Republican Apps Indication:Diabetes type 1, controlled Start:23-Jan-2023 Instruction Type:Patient Education Patient Instructions Indication:Diabetes type 1, controlled Start:17-Oct-2022 Instruction Type:Provider Instructions for Treatment How to Access Health Informa tion Online using Patient Portal and [employer] Apps Indication:Diabetes type 1, controlled Start:17-Oct-2022 Instruction Type:Patient Education Patient Instructions Indication:Diabetes type 1, controlled Start:12-Sep-2022 Instruction Type:Provider Instructions for Treatment How to Access Health Informa tion Online using Patient Portal and [employer] Apps Indication:Diabetes type 1, controlled Start:12-Sep-2022 Instruction Type:Patient Education Patient Instructions Indication:[facility] Start:09-Jul-2022 Instruction Type:Provider Instructions for Treatment Patient Instructions Indication:Urinary frequency Start:22-Apr-2022 Instruction Type:Provider Instructions for Treatment Patient Instructions Indication:Ulnar neuropathy Start:31-May-2021 Instruction Type:Provider Instructions for Treatment How to Access Health Informa tion Online using Patient Portal and [employer] Apps Indication:Ulnar neuropathy Start:31-May-2021 Instruction Type:Patient Education How to access health informa tion online Indication:Benign essential hypertension Start:25-Nov-2015 Instruction Type:Patient Education How to access health informa tion online - Detail Indication:Benign essential hypertension Start:25-Nov-2015 Instruction Type:Patient Education Patient Instructions Indication:Benign essential hypertension Start:25-Nov-2015 Instruction Type:Provider Instructions for Treatment How to access health informa tion online Indication:Type II diabetes mellitus Start:25-Mar-2015 Instruction Type:Patient Education How to access health informa tion online - Detail Indication:Type II diabetes mellitus Start:25-Mar-2015 Instruction Type:Patient Education Patient Instructions Indication:Type II diabetes mellitus Start:25-Mar-2015 Instruction Type:Provider Instructions for Treatment [facility]; [facility] Work Phone: Instructions* Name Dates Details Patient Instructions Indication:Diabetes type 1, controlled Start:23-Jan-2023 Instruction Type:Provider Instructions for Treatment How to Access Health Informa tion Online using Patient Portal and [employer] Apps Indication:Diabetes type 1, controlled Start:23-Jan-2023 Instruction Type:Patient Education Patient Instructions Indication:Diabetes type 1, controlled Start:17-Oct-2022 Instruction Type:Provider Instructions for Treatment How to Access Health Informa tion Online using Patient Portal and [employer] Apps Indication:Diabetes type 1, controlled Start:17-Oct-2022 Instruction Type:Patient Education Patient Instructions Indication:Diabetes type 1, controlled Start:12-Sep-2022 Instruction Type:Provider Instructions for Treatment How to Access Health Informa tion Online using Patient Portal and [employer] Apps Indication:Diabetes type 1, controlled Start:12-Sep-2022 Instruction Type:Patient Education Patient Instructions Indication:[facility] EX[facility] Start:09-Jul-2022 Instruction Type:Provider Instructions for Treatment Patient Instructions Indication:Urinary frequency Start:22-Apr-2022 Instruction Type:Provider Instructions for Treatment Patient Instructions Indication:Ulnar neuropathy Start:31-May-2021 Instruction Type:Provider Instructions for Treatment How to Access Health Informa tion Online using Patient Portal and [employer] Apps Indication:Ulnar neuropathy Start:31-May-2021 Instruction Type:Patient Education How to access health informa tion online Indication:Benign essential hypertension Start:25-Nov-2015 Instruction Type:Patient Education How to access health informa tion online - Detail Indication:Benign essential hypertension Start:25-Nov-2015 Instruction Type:Patient Education Patient Instructions Indication:Benign essential hypertension Start:25-Nov-2015 Instruction Type:Provider Instructions for Treatment How to access health informa tion online Indication:Type II diabetes mellitus Start:25-Mar-2015 Instruction Type:Patient Education How to access health informa tion online - Detail Indication:Type II diabetes mellitus Start:25-Mar-2015 Instruction Type:Patient Education Patient Instructions Indication:Type II diabetes mellitus Start:25-Mar-2015 Instruction Type:Provider Instructions for Treatment [facility]; [facility] Work Phone: Instructions* Name Dates Details Patient Instructions Indication:Diabetes type 1, controlled Start:23-Jan-2023 Instruction Type:Provider Instructions for Treatment How to Access Health Informa tion Online using Patient Portal and [employer] Apps Indication:Diabetes type 1, controlled Start:23-Jan-2023 Instruction Type:Patient Education Patient Instructions Indication:Diabetes type 1, controlled Start:17-Oct-2022 Instruction Type:Provider Instructions for Treatment How to Access Health Informa tion Online using Patient Portal and [employer] Apps Indication:Diabetes type 1, controlled Start:17-Oct-2022 Instruction Type:Patient Education Patient Instructions Indication:Diabetes type 1, controlled Start:12-Sep-2022 Instruction Type:Provider Instructions for Treatment How to Access Health Informa tion Online using Patient Portal and [employer] Apps Indication:Diabetes type 1, controlled Start:12-Sep-2022 Instruction Type:Patient Education Patient Instructions Indication:[facility] Start:09-Jul-2022 Instruction Type:Provider Instructions for Treatment Patient Instructions Indication:Urinary frequency Start:22-Apr-2022 Instruction Type:Provider Instructions for Treatment Patient Instructions Indication:Ulnar neuropathy Start:31-May-2021 Instruction Type:Provider Instructions for Treatment How to Access Health Informa tion Online using Patient Portal and [employer] Apps Indication:Ulnar neuropathy Start:31-May-2021 Instruction Type:Patient Education How to access health informa tion online Indication:Benign essential hypertension Start:25-Nov-2015 Instruction Type:Patient Education How to access health informa tion online - Detail Indication:Benign essential hypertension Start:25-Nov-2015 Instruction Type:Patient Education Patient Instructions Indication:Benign essential hypertension Start:25-Nov-2015 Instruction Type:Provider Instructions for Treatment How to access health informa tion online Indication:Type II diabetes mellitus Start:25-Mar-2015 Instruction Type:Patient Education How to access health informa tion online - Detail Indication:Type II diabetes mellitus Start:25-Mar-2015 Instruction Type:Patient Education Patient Instructions Indication:Type II diabetes mellitus Start:25-Mar-2015 Instruction Type:Provider Instructions for Treatment [facility] Work Phone: reason for referral (narrative)No reason for referral information availableA[facility] Work [facility]: Family History No Family History Records FoundUnknown Family Member Name Dates Details 8 brothers Comments:oldest 67- 3 have d m- thyroid disease- etoh- brother with mental illness Status:Active Father Comments: age 74- co nakul cancer- question of MS Status:Active Mother Comments:living 88- stroke b rain aneurysm- miin 86-htn high chol Status:Active Unknown Family Member Name Dates Details 8 brothers Comments:oldest 67- 3 have d m- thyroid disease- etoh- brother with mental illness Status:Active Father Comments: age 74- co nakul cancer- question of MS Status:Active Mother Comments:living 88- stroke b rain aneurysm- miin 86-htn high chol Status:Active Unknown Family Member Name Dates Details 8 brothers Comments:oldest 67- 3 have d m- thyroid disease- etoh- brother with mental illness Status:Active Father Comments: age 74- co nakul cancer- question of MS Status:Active Mother Comments:living 88- stroke b rain aneurysm- miin 86-htn high chol Status:Active Unknown Family Member Name Dates Details 8 brothers Comments:oldest 67- 3 have d m- thyroid disease- etoh- brother with mental illness Status:Active Father Comments: age 74- co nakul cancer- question of MS Status:Active Mother Comments:living 88- stroke b rain aneurysm- miin 86-htn high chol Status:Active Unknown Family Member Name Dates Details 8 brothers Comments:oldest 67- 3 have d m- thyroid disease- etoh- brother with mental illness Status:Active Father Comments: age 74- co nakul cancer- question of MS Status:Active Mother Comments:living 88- stroke b rain aneurysm- miin 86-htn high chol Status:Active Unknown Family Member Name Dates Details 8 brothers Comments:oldest 67- 3 have d m- thyroid disease- etoh- brother with mental illness Status:Active Father Comments: age 74- co nakul cancer- question of MS Status:Active Mother Comments:living 88- stroke b rain aneurysm- miin 86-htn high chol Status:Active Unknown Family Member Name Dates Details 8 brothers Comments:oldest 67- 3 have d m- thyroid disease- etoh- brother with mental illness Status:Active Father Comments: age 74- co nakul cancer- question of MS Status:Active Mother Comments:living 88- stroke b rain aneurysm- miin 86-htn high chol Status:Active Unknown Family Member Name Dates Details 8 brothers Comments:oldest 67- 3 have d m- thyroid disease- etoh- brother with mental illness Status:Active Father Comments: age 74- co nakul cancer- question of MS Status:Active Mother Comments:living 88- stroke b rain aneurysm- miin 86-htn high chol Status:Active Unknown Family Member Name Dates Details 8 brothers Comments:oldest 67- 3 have d m- thyroid disease- etoh- brother with mental illness Status:Active Father Comments: age 74- co nakul cancer- question of MS Status:Active Mother Comments:living 88- stroke b rain aneurysm- miin 86-htn high chol Status:Active Unknown Family Member Name Dates Details 8 brothers Comments:oldest 67- 3 have d m- thyroid disease- etoh- brother with mental illness Status:Active Father Comments: age 74- co nakul cancer- question of MS Status:Active Mother Comments:living 88- stroke b rain aneurysm- miin 86-htn high chol Status:Active Unknown Family Member Name Dates Details 8 brothers Comments:oldest 67- 3 have d m- thyroid disease- etoh- brother with mental illness Status:Active Father Comments: age 74- co nakul cancer- question of MS Status:Active Mother Comments:living 88- stroke b rain aneurysm- miin 86-htn high chol- Status:Active Unknown Family Member Name Dates Details 8 brothers Comments:oldest 67- 3 have d m- thyroid disease- etoh- brother with mental illness Status:Active Father Comments: age 74- co nakul cancer- question of MS Status:Active Mother Comments:living 88- stroke b rain aneurysm- miin 86-htn high chol- Status:Active Unknown Family Member Name Dates Details 8 brothers Comments:oldest 67- 3 have d m- thyroid disease- etoh- brother with mental illness Status:Active Father Comments: age 74- co nakul cancer- question of MS Status:Active Mother Comments:living 88- stroke b rain aneurysm- miin 86-htn high chol- Status:Active Unknown Family Member Name Dates Details 8 brothers Comments:oldest 67- 3 have d m- thyroid disease- etoh- brother with mental illness Status:Active Father Comments: age 74- co nakul cancer- question of MS Status:Active Mother Comments:living 88- stroke b rain aneurysm- miin 86-htn high chol- Status:Active Unknown Family Member Name Dates Details 8 brothers Comments:oldest 67- 3 have d m- thyroid disease- etoh- brother with mental illness Status:Active Father Comments: age 74- co nakul cancer- question of MS Status:Active Mother Comments:living 88- stroke b rain aneurysm- miin 86-htn high chol- Status:Active Unknown Family Member Name Dates Details 8 brothers Comments:oldest 67- 3 have d m- thyroid disease- etoh- brother with mental illness Status:Active Father Comments: age 74- co nakul cancer- question of MS Status:Active Mother Comments:living 88- stroke b rain aneurysm- miin 86-htn high chol- Status:Active Unknown Family Member Name Dates Details 8 brothers Comments:oldest 67- 3 have d m- thyroid disease- etoh- brother with mental illness Status:Active Father Comments: age 74- co nakul cancer- question of MS Status:Active Mother Comments:living 88- stroke b rain aneurysm- miin 86-htn high chol- Status:Active Unknown Family Member Name Dates Details 8 brothers Comments:oldest 67- 3 have d m- thyroid disease- etoh- brother with mental illness Status:Active Father Comments: age 74- co nakul cancer- question of MS Status:Active Mother Comments:living 88- stroke b rain aneurysm- miin 86-htn high chol- Status:Active Unknown Family Member Name Dates Details 8 brothers Comments:oldest 67- 3 have d m- thyroid disease- etoh- brother with mental illness Status:Active Father Comments: age 74- co nakul cancer- question of MS Status:Active Mother Comments:living 88- stroke b rain aneurysm- miin 86-htn high chol Status:Active Unknown Family Member Name Dates Details 8 brothers Comments:oldest 67- 3 have d m- thyroid disease- etoh- brother with mental illness Status:Active Father Comments: age 74- co nakul cancer- question of MS Status:Active Mother Comments:living 88- stroke b rain aneurysm- miin 86-htn high chol- Status:Active Unknown Family Member Name Dates Details 8 brothers Comments:oldest 67- 3 have d m- thyroid disease- etoh- brother with mental illness Status:Active Father Comments: age 74- co nakul cancer- question of MS Status:Active Mother Comments:living 88- stroke b rain aneurysm- miin 86-htn high chol- Status:Active Unknown Family Member Name Dates Details 8 brothers Comments:oldest 67- 3 have d m- thyroid disease- etoh- brother with mental illness Status:Active Father Comments: age 74- co nakul cancer- question of MS Status:Active Mother Comments:living 88- stroke b rain aneurysm- miin 86-htn high chol- Status:Active Unknown Family Member Name Dates Details 8 brothers Comments:oldest 67- 3 have d m- thyroid disease- etoh- brother with mental illness Status:Active Father Comments: age 74- co nakul cancer- question of MS Status:Active Mother Comments:living 88- stroke b rain aneurysm- miin 86-htn high chol- Status:Active Unknown Family Member Name Dates Details 8 brothers Comments:oldest 67- 3 have d m- thyroid disease- etoh- brother with mental illness Status:Active Father Comments: age 74- co nakul cancer- question of MS Status:Active Mother Comments:living 88- stroke b rain aneurysm- miin 86-htn high chol- Status:Active Unknown Family Member Name Dates Details 8 brothers Comments:oldest 67- 3 have d m- thyroid disease- etoh- brother with mental illness Status:Active Father Comments: age 74- co nakul cancer- question of MS Status:Active Mother Comments:living 88- stroke b rain aneurysm- miin 86-htn high chol- Status:Active Unknown Family Member Name Dates Details 8 brothers Comments:oldest 67- 3 have d m- thyroid disease- etoh- brother with mental illness Status:Active Father Comments: age 74- co nakul cancer- question of MS Status:Active Mother Comments:living 88- stroke b rain aneurysm- miin 86-htn high chol- Status:Active Unknown Family Member Name Dates Details 8 brothers Comments:oldest 67- 3 have d m- thyroid disease- etoh- brother with mental illness Status:Active Father Comments: age 74- co nakul cancer- question of MS Status:Active Mother Comments:living 88- stroke b rain aneurysm- miin 86-htn high chol- Status:Active Unknown Family Member Name Dates Details 8 brothers Comments:oldest 67- 3 have d m- thyroid disease- etoh- brother with mental illness Status:Active Father Comments: age 74- co nakul cancer- question of MS Status:Active Mother Comments:living 88- stroke b rain aneurysm- miin 86-htn high chol- Status:Active Unknown Family Member Name Dates Details 8 brothers Comments:oldest 67- 3 have d m- thyroid disease- etoh- brother with mental illness Status:Active Father Comments: age 74- co nakul cancer- question of MS Status:Active Mother Comments:living 88- stroke b rain aneurysm- miin 86-htn high chol- Status:Active Unknown Family Member Name Dates Details 8 brothers Comments:oldest 67- 3 have d m- thyroid disease- etoh- brother with mental illness Status:Active Father Comments: age 74- co naklu cancer- question of MS Status:Active Mother Comments:living 88- stroke b rain aneurysm- miin 86-htn high chol- Status:Active Unknown Family Member Name Dates Details 8 brothers Comments:oldest 67- 3 have d m- thyroid disease- etoh- brother with mental illness Status:Active Father Comments: age 74- co nakul cancer- question of MS Status:Active Mother Comments:living 88- stroke b rain aneurysm- miin 86-htn high chol- Status:Active Unknown Family Member Name Dates Details 8 brothers Comments:oldest 67- 3 have d m- thyroid disease- etoh- brother with mental illness Status:Active Father Comments: age 74- co nakul cancer- question of MS Status:Active Mother Comments:living 88- stroke b rain aneurysm- miin 86-htn high chol- Status:Active Relationship Condition Age at Onset Recorded Date/T jacob Unknown Family History?- Unknown August [id number] 12:18am Unknown Family Member Name Dates Details 8 brothers Comments:oldest 67- 3 have d m- thyroid disease- etoh- brother with mental illness Status:Active Father Comments: age 74- co nakul cancer- question of MS Status:Active Mother Comments:living 88- stroke b rain aneurysm- miin 86-htn high chol- Status:Active Unknown Family Member Name Dates Details 8 brothers Comments:oldest 67- 3 have d m- thyroid disease- etoh- brother with mental illness Status:Active Father Comments: age 74- co nakul cancer- question of MS Status:Active Mother Comments:living 88- stroke b rain aneurysm- miin 86-htn high chol- Status:Active Unknown Family Member Name Dates Details 8 brothers Comments:oldest 67- 3 have d m- thyroid disease- etoh- brother with mental illness Status:Active Father Comments: age 74- co nakul cancer- question of MS Status:Active Mother Comments:living 88- stroke b rain aneurysm- miin 86-htn high chol- Status:Active Unknown Family Member Name Dates Details 8 brothers Comments:oldest 67- 3 have d m- thyroid disease- etoh- brother with mental illness Status:Active Father Comments: age 74- co nakul cancer- question of MS Status:Active Mother Comments:living 88- stroke b rain aneurysm- miin 86-htn high chol- Status:Active Unknown Family Member Name Dates Details 8 brothers Comments:oldest 67- 3 have d m- thyroid disease- etoh- brother with mental illness Status:Active Father Comments: age 74- co nakul cancer- question of MS Status:Active Mother Comments:living 88- stroke b rain aneurysm- miin 86-htn high chol- Status:Active Unknown Family Member Name Dates Details 8 brothers Comments:oldest 67- 3 have d m- thyroid disease- etoh- brother with mental illness Status:Active Father Comments: age 74- co nakul cancer- question of MS Status:Active Mother Comments:living 88- stroke b rain aneurysm- miin 86-htn high chol- Status:Active Unknown Family Member Name Dates Details 8 brothers Comments:oldest 67- 3 have d m- thyroid disease- etoh- brother with mental illness Status:Active Father Comments: age 74- co nakul cancer- question of MS Status:Active Mother Comments:living 88- stroke b rain aneurysm- miin 86-htn high chol- Status:Active Unknown Family Member Name Dates Details 8 brothers Comments:oldest 67- 3 have d m- thyroid disease- etoh- brother with mental illness Status:Active Father Comments: age 74- co nakul cancer- question of MS Status:Active Mother Comments:living 88- stroke b rain aneurysm- miin 86-htn high chol- Status:Active Unknown Family Member Name Dates Details 8 brothers Comments:oldest 67- 3 have d m- thyroid disease- etoh- brother with mental illness Status:Active Father Comments: age 74- co nakul cancer- question of MS Status:Active Mother Comments:living 88- stroke b rain aneurysm- miin 86-htn high chol- Status:Active Unknown Family Member Name Dates Details 8 brothers Comments:oldest 67- 3 have d m- thyroid disease- etoh- brother with mental illness Status:Active Father Comments: age 74- co nakul cancer- question of MS Status:Active Mother Comments:living 88- stroke b rain aneurysm- miin 86-htn high chol- Status:Active Unknown Family Member Name Dates Details 8 brothers Comments:oldest 67- 3 have d m- thyroid disease- etoh- brother with mental illness Status:Active Father Comments: age 74- co nakul cancer- question of MS Status:Active Mother Comments:living 88- stroke b rain aneurysm- miin 86-htn high chol- Status:Active Unknown Family Member Name Dates Details 8 brothers Comments:oldest 67- 3 have d m- thyroid disease- etoh- brother with mental illness Status:Active Father Comments: age 74- co nakul cancer- question of MS Status:Active Mother Comments:living 88- stroke b rain aneurysm- miin 86-htn high chol- Status:Active Unknown Family Member Name Dates Details 8 brothers Comments:oldest 67- 3 have d m- thyroid disease- etoh- brother with mental illness Status:Active Father Comments: age 74- co nakul cancer- question of MS Status:Active Mother Comments:living 88- stroke b rain aneurysm- miin 86-htn high chol- Status:Active Unknown Family Member Name Dates Details 8 brothers Comments:oldest 67- 3 have d m- thyroid disease- etoh- brother with mental illness Status:Active Father Comments: age 74- co nakul cancer- question of MS Status:Active Mother Comments:living 88- stroke b rain aneurysm- miin 86-htn high chol- Status:Active Unknown Family Member Name Dates Details 8 brothers Comments:oldest 67- 3 have d m- thyroid disease- etoh- brother with mental illness Status:Active Father Comments: age 74- co nakul cancer- question of MS Status:Active Mother Comments:living 88- stroke b rain aneurysm- miin 86-htn high chol- Status:Active Unknown Family Member Name Dates Details 8 brothers Comments:oldest 67- 3 have d m- thyroid disease- etoh- brother with mental illness Status:Active Father Comments: age 74- co nakul cancer- question of MS Status:Active Mother Comments:living 88- stroke b rain aneurysm- miin 86-htn high chol- Status:Active Unknown Family Member Name Dates Details 8 brothers Comments:oldest 67- 3 have d m- thyroid disease- etoh- brother with mental illness Status:Active Father Comments: age 74- co nakul cancer- question of MS Status:Active Mother Comments:living 88- stroke b rain aneurysm- miin 86-htn high chol- Status:Active Unknown Family Member Name Dates Details 8 brothers Comments:oldest 67- 3 have d m- thyroid disease- etoh- brother with mental illness Status:Active Father Comments: age 74- co nakul cancer- question of MS Status:Active Mother Comments:living 88- stroke b rain aneurysm- miin 86-htn high chol- Status:Active Unknown Family Member Name Dates Details 8 brothers Comments:oldest 67- 3 have d m- thyroid disease- etoh- brother with mental illness Status:Active Father Comments: age 74- co nakul cancer- question of MS Status:Active Mother Comments:living 88- stroke b rain aneurysm- miin 86-htn high chol- Status:Active Unknown Family Member Name Dates Details 8 brothers Comments:oldest 67- 3 have d m- thyroid disease- etoh- brother with mental illness Status:Active Father Comments: age 74- co nakul cancer- question of MS Status:Active Mother Comments:living 88- stroke b rain aneurysm- miin 86-htn high chol- Status:Active Unknown Family Member Name Dates Details 8 brothers Comments:oldest 67- 3 have d m- thyroid disease- etoh- brother with mental illness Status:Active Father Comments: age 74- co nakul cancer- question of MS Status:Active Mother Comments:living 88- stroke b rain aneurysm- miin 86-htn high chol- Status:Active Unknown Family Member Name Dates Details 8 brothers Comments:oldest 67- 3 have d m- thyroid disease- etoh- brother with mental illness Status:Active Father Comments: age 74- co nakul cancer- question of MS Status:Active Mother Comments:living 88- stroke b rain aneurysm- miin 86-htn high chol- Status:Active Unknown Family Member Name Dates Details 8 brothers Comments:oldest 67- 3 have d m- thyroid disease- etoh- brother with mental illness Status:Active Father Comments: age 74- co nakul cancer- question of MS Status:Active Mother Comments:living 88- stroke b rain aneurysm- miin 86-htn high chol- Status:Active Unknown Family Member Name Dates Details 8 brothers Comments:oldest 67- 3 have d m- thyroid disease- etoh- brother with mental illness Status:Active Father Comments: age 74- co nakul cancer- question of MS Status:Active Mother Comments:living 88- stroke b rain aneurysm- miin 86-htn high chol- Status:Active Unknown Family Member Name Dates Details 8 brothers Comments:oldest 67- 3 have d m- thyroid disease- etoh- brother with mental illness Status:Active Father Comments: age 74- co nakul cancer- question of MS Status:Active Mother Comments:living 88- stroke b rain aneurysm- miin 86-htn high chol- Status:Active Unknown Family Member Name Dates Details 8 brothers Comments:oldest 67- 3 have d m- thyroid disease- etoh- brother with mental illness Status:Active Father Comments: age 74- co nakul cancer- question of MS Status:Active Mother Comments:living 88- stroke b rain aneurysm- miin 86-htn high chol- Status:Active Unknown Family Member Name Dates Details 8 brothers Comments:oldest 67- 3 have d m- thyroid disease- etoh- brother with mental illness Status:Active Father Comments: age 74- co nakul cancer- question of MS Status:Active Mother Comments:living 88- stroke b rain aneurysm- miin 86-htn high chol- Status:Active Unknown Family Member Name Dates Details 8 brothers Comments:oldest 67- 3 have d m- thyroid disease- etoh- brother with mental illness Status:Active Father Comments: age 74- co nakul cancer- question of MS Status:Active Mother Comments:living 88- stroke b rain aneurysm- miin 86-htn high chol- Status:Active Unknown Family Member Name Dates Details 8 brothers Comments:oldest 67- 3 have d m- thyroid disease- etoh- brother with mental illness Status:Active Father Comments: age 74- co nakul cancer- question of MS Status:Active Mother Comments:living 88- stroke b rain aneurysm- miin 86-htn high chol- Status:Active Relationship Condition Age at Onset Recorded Date/T jacob Not Specified Disorder of thyroid Unknown father Malignant neoplasm of colon Unknown Unknown Family Member Name Dates Details 8 brothers Comments:oldest 67- 3 have d m- thyroid disease- etoh- brother with mental illness Status:Active Father Comments: age 74- co nakul cancer- question of MS Status:Active Mother Comments:living 88- stroke b rain aneurysm- miin 86-htn high chol- Status:Active Unknown Family Member Name Dates Details 8 brothers Comments:oldest 67- 3 have d m- thyroid disease- etoh- brother with mental illness Status:Active Father Comments: age 74- co nakul cancer- question of MS Status:Active Mother Comments:living 88- stroke b rain aneurysm- miin 86-htn high chol- Status:Active Unknown Family Member Name Dates Details 8 brothers Comments:oldest 67- 3 have d m- thyroid disease- etoh- brother with mental illness Status:Active Father Comments: age 74- co nakul cancer- question of MS Status:Active Mother Comments:living 88- stroke b rain aneurysm- miin 86-htn high chol- Status:Active Unknown Family Member Name Dates Details 8 brothers Comments:oldest 67- 3 have d m- thyroid disease- etoh- brother with mental illness Status:Active Father Comments: age 74- co nakul cancer- question of MS Status:Active Mother Comments:living 88- stroke b rain aneurysm- miin 86-htn high chol- Status:Active Unknown Family Member Name Dates Details 8 brothers Comments:oldest 67- 3 have d m- thyroid disease- etoh- brother with mental illness Status:Active Father Comments: age 74- co nakul cancer- question of MS Status:Active Mother Comments:living 88- stroke b rain aneurysm- miin 86-htn high chol- Status:Active Unknown Family Member Name Dates Details 8 brothers Comments:oldest 67- 3 have d m- thyroid disease- etoh- brother with mental illness Status:Active Father Comments: age 74- co nakul cancer- question of MS Status:Active Mother Comments:living 88- stroke b rain aneurysm- miin 86-htn high chol- Status:Active Unknown Family Member Name Dates Details 8 brothers Comments:oldest 67- 3 have d m- thyroid disease- etoh- brother with mental illness Status:Active Father Comments: age 74- co nakul cancer- question of MS Status:Active Mother Comments:living 88- stroke b rain aneurysm- miin 86-htn high chol- Status:Active Unknown Family Member Name Dates Details 8 brothers Comments:oldest 67- 3 have d m- thyroid disease- etoh- brother with mental illness Status:Active Father Comments: age 74- co nakul cancer- question of MS Status:Active Mother Comments:living 88- stroke b rain aneurysm- miin 86-htn high chol- Status:Active Unknown Family Member Name Dates Details 8 brothers Comments:oldest 67- 3 have d m- thyroid disease- etoh- brother with mental illness Status:Active Father Comments: age 74- co nakul cancer- question of MS Status:Active Mother Comments:living 88- stroke b rain aneurysm- miin 86-htn high chol- Status:Active Unknown Family Member Name Dates Details 8 brothers Comments:oldest 67- 3 have d m- thyroid disease- etoh- brother with mental illness Status:Active Father Comments: age 74- co nakul cancer- question of MS Status:Active Mother Comments:living 88- stroke b rain aneurysm- miin 86-htn high chol- Status:Active Unknown Family Member Name Dates Details 8 brothers Comments:oldest 67- 3 have d m- thyroid disease- etoh- brother with mental illness Status:Active Father Comments: age 74- co nakul cancer- question of MS Status:Active Mother Comments:living 88- stroke b rain aneurysm- miin 86-htn high chol- Status:Active Unknown Family Member Name Dates Details 8 brothers Comments:oldest 67- 3 have d m- thyroid disease- etoh- brother with mental illness Status:Active Father Comments: age 74- co nakul cancer- question of MS Status:Active Mother Comments:living 88- stroke b rain aneurysm- miin 86-htn high chol- Status:Active Unknown Family Member Name Dates Details 8 brothers Comments:oldest 67- 3 have d m- thyroid disease- etoh- brother with mental illness Status:Active Father Comments: age 74- co nakul cancer- question of MS Status:Active Mother Comments:living 88- stroke b rain aneurysm- miin 86-htn high chol- Status:Active Unknown Family Member Name Dates Details 8 brothers Comments:oldest 67- 3 have d m- thyroid disease- etoh- brother with mental illness Status:Active Father Comments: age 74- co nakul cancer- question of MS Status:Active Mother Comments:living 88- stroke b rain aneurysm- miin 86-htn high chol- Status:Active Unknown Family Member Name Dates Details 8 brothers Comments:oldest 67- 3 have d m- thyroid disease- etoh- brother with mental illness Status:Active Father Comments: age 74- co nakul cancer- question of MS Status:Active Mother Comments:living 88- stroke b rain aneurysm- miin 86-htn high chol- Status:Active Relationship Condition Age at Onset Recorded Date/T jacob father Malignant neoplasm of colon Unknown brother Disorder of thyroid Unknown Diabetes mellitus Unknown mother Hypertension Unknown Cerebrovascular accident (CVA) Unknown Instructions Name Dates Details Benign essential hypertensio n : How to access health information online Indication:Benign essential hypertension Benign essential hypertensio n : How to access health information online - Detail Indication:Benign essential hypertension Benign essential hypertensio n : Patient Instructions Indication:Benign essential hypertension Type II diabetes mellitus : How to access health information online Indication:Type II diabetes mellitus Type II diabetes mellitus : How to access health information online - Detail Indication:Type II diabetes mellitus Type II diabetes mellitus : Patient Instructions Indication:Type II diabetes mellitus Name Dates Details Benign essential hypertensio n : How to access health information online Indication:Benign essential hypertension Benign essential hypertensio n : How to access health information online - Detail Indication:Benign essential hypertension Benign essential hypertensio n : Patient Instructions Indication:Benign essential hypertension Type II diabetes mellitus : How to access health information online Indication:Type II diabetes mellitus Type II diabetes mellitus : How to access health information online - Detail Indication:Type II diabetes mellitus Type II diabetes mellitus : Patient Instructions Indication:Type II diabetes mellitus Name Dates Details Benign essential hypertensio n : How to access health information online Indication:Benign essential hypertension Benign essential hypertensio n : How to access health information online - Detail Indication:Benign essential hypertension Benign essential hypertensio n : Patient Instructions Indication:Benign essential hypertension Type II diabetes mellitus : How to access health information online Indication:Type II diabetes mellitus Type II diabetes mellitus : How to access health information online - Detail Indication:Type II diabetes mellitus Type II diabetes mellitus : Patient Instructions Indication:Type II diabetes mellitus Name Dates Details How to access health informa tion online Indication:Benign essential hypertension Start:25-Nov-2015 Instruction Type:Patient Education How to access health informa tion online - Detail Indication:Benign essential hypertension Start:25-Nov-2015 Instruction Type:Patient Education Patient Instructions Indication:Benign essential hypertension Start:25-Nov-2015 Instruction Type:Provider Instructions for Treatment How to access health informa tion online Indication:Type II diabetes mellitus Start:25-Mar-2015 Instruction Type:Patient Education How to access health informa tion online - Detail Indication:Type II diabetes mellitus Start:25-Mar-2015 Instruction Type:Patient Education Patient Instructions Indication:Type II diabetes mellitus Start:25-Mar-2015 Instruction Type:Provider Instructions for Treatment Name Dates Details How to access health informa tion online Indication:Benign essential hypertension Start:25-Nov-2015 Instruction Type:Patient Education How to access health informa tion online - Detail Indication:Benign essential hypertension Start:25-Nov-2015 Instruction Type:Patient Education Patient Instructions Indication:Benign essential hypertension Start:25-Nov-2015 Instruction Type:Provider Instructions for Treatment How to access health informa tion online Indication:Type II diabetes mellitus Start:25-Mar-2015 Instruction Type:Patient Education How to access health informa tion online - Detail Indication:Type II diabetes mellitus Start:25-Mar-2015 Instruction Type:Patient Education Patient Instructions Indication:Type II diabetes mellitus Start:25-Mar-2015 Instruction Type:Provider Instructions for Treatment Name Dates Details How to access health informa tion online Indication:Benign essential hypertension Start:25-Nov-2015 Instruction Type:Patient Education How to access health informa tion online - Detail Indication:Benign essential hypertension Start:25-Nov-2015 Instruction Type:Patient Education Patient Instructions Indication:Benign essential hypertension Start:25-Nov-2015 Instruction Type:Provider Instructions for Treatment How to access health informa tion online Indication:Type II diabetes mellitus Start:25-Mar-2015 Instruction Type:Patient Education How to access health informa tion online - Detail Indication:Type II diabetes mellitus Start:25-Mar-2015 Instruction Type:Patient Education Patient Instructions Indication:Type II diabetes mellitus Start:25-Mar-2015 Instruction Type:Provider Instructions for Treatment Name Dates Details How to access health informa tion online Indication:Benign essential hypertension Start:25-Nov-2015 Instruction Type:Patient Education How to access health informa tion online - Detail Indication:Benign essential hypertension Start:25-Nov-2015 Instruction Type:Patient Education Patient Instructions Indication:Benign essential hypertension Start:25-Nov-2015 Instruction Type:Provider Instructions for Treatment How to access health informa tion online Indication:Type II diabetes mellitus Start:25-Mar-2015 Instruction Type:Patient Education How to access health informa tion online - Detail Indication:Type II diabetes mellitus Start:25-Mar-2015 Instruction Type:Patient Education Patient Instructions Indication:Type II diabetes mellitus Start:25-Mar-2015 Instruction Type:Provider Instructions for Treatment Name Dates Details How to access health informa tion online Indication:Benign essential hypertension Start:25-Nov-2015 Instruction Type:Patient Education How to access health informa tion online - Detail Indication:Benign essential hypertension Start:25-Nov-2015 Instruction Type:Patient Education Patient Instructions Indication:Benign essential hypertension Start:25-Nov-2015 Instruction Type:Provider Instructions for Treatment How to access health informa tion online Indication:Type II diabetes mellitus Start:25-Mar-2015 Instruction Type:Patient Education How to access health informa tion online - Detail Indication:Type II diabetes mellitus Start:25-Mar-2015 Instruction Type:Patient Education Patient Instructions Indication:Type II diabetes mellitus Start:25-Mar-2015 Instruction Type:Provider Instructions for Treatment Name Dates Details How to access health informa tion online Indication:Benign essential hypertension Start:25-Nov-2015 Instruction Type:Patient Education How to access health informa tion online - Detail Indication:Benign essential hypertension Start:25-Nov-2015 Instruction Type:Patient Education Patient Instructions Indication:Benign essential hypertension Start:25-Nov-2015 Instruction Type:Provider Instructions for Treatment How to access health informa tion online Indication:Type II diabetes mellitus Start:25-Mar-2015 Instruction Type:Patient Education How to access health informa tion online - Detail Indication:Type II diabetes mellitus Start:25-Mar-2015 Instruction Type:Patient Education Patient Instructions Indication:Type II diabetes mellitus Start:25-Mar-2015 Instruction Type:Provider Instructions for Treatment Name Dates Details How to access health informa tion online Indication:Benign essential hypertension Start:25-Nov-2015 Instruction Type:Patient Education How to access health informa tion online - Detail Indication:Benign essential hypertension Start:25-Nov-2015 Instruction Type:Patient Education Patient Instructions Indication:Benign essential hypertension Start:25-Nov-2015 Instruction Type:Provider Instructions for Treatment How to access health informa tion online Indication:Type II diabetes mellitus Start:25-Mar-2015 Instruction Type:Patient Education How to access health informa tion online - Detail Indication:Type II diabetes mellitus Start:25-Mar-2015 Instruction Type:Patient Education Patient Instructions Indication:Type II diabetes mellitus Start:25-Mar-2015 Instruction Type:Provider Instructions for Treatment Name Dates Details How to access health informa tion online Indication:Benign essential hypertension Start:25-Nov-2015 Instruction Type:Patient Education How to access health informa tion online - Detail Indication:Benign essential hypertension Start:25-Nov-2015 Instruction Type:Patient Education Patient Instructions Indication:Benign essential hypertension Start:25-Nov-2015 Instruction Type:Provider Instructions for Treatment How to access health informa tion online Indication:Type II diabetes mellitus Start:25-Mar-2015 Instruction Type:Patient Education How to access health informa tion online - Detail Indication:Type II diabetes mellitus Start:25-Mar-2015 Instruction Type:Patient Education Patient Instructions Indication:Type II diabetes mellitus Start:25-Mar-2015 Instruction Type:Provider Instructions for Treatment Name Dates Details How to access health informa tion online Indication:Benign essential hypertension Start:25-Nov-2015 Instruction Type:Patient Education How to access health informa tion online - Detail Indication:Benign essential hypertension Start:25-Nov-2015 Instruction Type:Patient Education Patient Instructions Indication:Benign essential hypertension Start:25-Nov-2015 Instruction Type:Provider Instructions for Treatment How to access health informa tion online Indication:Type II diabetes mellitus Start:25-Mar-2015 Instruction Type:Patient Education How to access health informa tion online - Detail Indication:Type II diabetes mellitus Start:25-Mar-2015 Instruction Type:Patient Education Patient Instructions Indication:Type II diabetes mellitus Start:25-Mar-2015 Instruction Type:Provider Instructions for Treatment Name Dates Details How to access health informa tion online Indication:Benign essential hypertension Start:25-Nov-2015 Instruction Type:Patient Education How to access health informa tion online - Detail Indication:Benign essential hypertension Start:25-Nov-2015 Instruction Type:Patient Education Patient Instructions Indication:Benign essential hypertension Start:25-Nov-2015 Instruction Type:Provider Instructions for Treatment How to access health informa tion online Indication:Type II diabetes mellitus Start:25-Mar-2015 Instruction Type:Patient Education How to access health informa tion online - Detail Indication:Type II diabetes mellitus Start:25-Mar-2015 Instruction Type:Patient Education Patient Instructions Indication:Type II diabetes mellitus Start:25-Mar-2015 Instruction Type:Provider Instructions for Treatment Name Dates Details How to access health informa tion online Indication:Benign essential hypertension Start:25-Nov-2015 Instruction Type:Patient Education How to access health informa tion online - Detail Indication:Benign essential hypertension Start:25-Nov-2015 Instruction Type:Patient Education Patient Instructions Indication:Benign essential hypertension Start:25-Nov-2015 Instruction Type:Provider Instructions for Treatment How to access health informa tion online Indication:Type II diabetes mellitus Start:25-Mar-2015 Instruction Type:Patient Education How to access health informa tion online - Detail Indication:Type II diabetes mellitus Start:25-Mar-2015 Instruction Type:Patient Education Patient Instructions Indication:Type II diabetes mellitus Start:25-Mar-2015 Instruction Type:Provider Instructions for Treatment Name Dates Details How to access health informa tion online Indication:Benign essential hypertension Start:25-Nov-2015 Instruction Type:Patient Education How to access health informa tion online - Detail Indication:Benign essential hypertension Start:25-Nov-2015 Instruction Type:Patient Education Patient Instructions Indication:Benign essential hypertension Start:25-Nov-2015 Instruction Type:Provider Instructions for Treatment How to access health informa tion online Indication:Type II diabetes mellitus Start:25-Mar-2015 Instruction Type:Patient Education How to access health informa tion online - Detail Indication:Type II diabetes mellitus Start:25-Mar-2015 Instruction Type:Patient Education Patient Instructions Indication:Type II diabetes mellitus Start:25-Mar-2015 Instruction Type:Provider Instructions for Treatment Name Dates Details How to access health informa tion online Indication:Benign essential hypertension Start:25-Nov-2015 Instruction Type:Patient Education How to access health informa tion online - Detail Indication:Benign essential hypertension Start:25-Nov-2015 Instruction Type:Patient Education Patient Instructions Indication:Benign essential hypertension Start:25-Nov-2015 Instruction Type:Provider Instructions for Treatment How to access health informa tion online Indication:Type II diabetes mellitus Start:25-Mar-2015 Instruction Type:Patient Education How to access health informa tion online - Detail Indication:Type II diabetes mellitus Start:25-Mar-2015 Instruction Type:Patient Education Patient Instructions Indication:Type II diabetes mellitus Start:25-Mar-2015 Instruction Type:Provider Instructions for Treatment Name Dates Details How to access health informa tion online Indication:Benign essential hypertension Start:25-Nov-2015 Instruction Type:Patient Education How to access health informa tion online - Detail Indication:Benign essential hypertension Start:25-Nov-2015 Instruction Type:Patient Education Patient Instructions Indication:Benign essential hypertension Start:25-Nov-2015 Instruction Type:Provider Instructions for Treatment How to access health informa tion online Indication:Type II diabetes mellitus Start:25-Mar-2015 Instruction Type:Patient Education How to access health informa tion online - Detail Indication:Type II diabetes mellitus Start:25-Mar-2015 Instruction Type:Patient Education Patient Instructions Indication:Type II diabetes mellitus Start:25-Mar-2015 Instruction Type:Provider Instructions for Treatment Name Dates Details How to access health informa tion online Indication:Benign essential hypertension Start:25-Nov-2015 Instruction Type:Patient Education How to access health informa tion online - Detail Indication:Benign essential hypertension Start:25-Nov-2015 Instruction Type:Patient Education Patient Instructions Indication:Benign essential hypertension Start:25-Nov-2015 Instruction Type:Provider Instructions for Treatment How to access health informa tion online Indication:Type II diabetes mellitus Start:25-Mar-2015 Instruction Type:Patient Education How to access health informa tion online - Detail Indication:Type II diabetes mellitus Start:25-Mar-2015 Instruction Type:Patient Education Patient Instructions Indication:Type II diabetes mellitus Start:25-Mar-2015 Instruction Type:Provider Instructions for Treatment Name Dates Details How to access health informa tion online Indication:Benign essential hypertension Start:25-Nov-2015 Instruction Type:Patient Education How to access health informa tion online - Detail Indication:Benign essential hypertension Start:25-Nov-2015 Instruction Type:Patient Education Patient Instructions Indication:Benign essential hypertension Start:25-Nov-2015 Instruction Type:Provider Instructions for Treatment How to access health informa tion online Indication:Type II diabetes mellitus Start:25-Mar-2015 Instruction Type:Patient Education How to access health informa tion online - Detail Indication:Type II diabetes mellitus Start:25-Mar-2015 Instruction Type:Patient Education Patient Instructions Indication:Type II diabetes mellitus Start:25-Mar-2015 Instruction Type:Provider Instructions for Treatment Summary Purpose Advance Directives No Advanced Directives Records Found Advance Directive Response Recorded Date/ Time Advance Directives Yes May 18, 2021 8:11am Living Will Yes May 18 8:11am Power of Molder Sweep Yes May 18, 2021 8:11am Advance Directive Response Recorded Date/ Time Name of Medical Power of Molder Sweep January 07, 2022 3:15pm Advance Directives Yes May 18, 2021 8:11am Living Will Yes January 07, 2022 3:15pm Power of Molder Sweep Yes January 07 3:15pm Advance Directive Response Recorded Date/ Time Name of Medical Power of Molder Sweep January 07, 2022 3:15pm Name of Medical Power of Molder Sweep julio padron March 24, 2022 9:20am Advance Directives Yes May 18, 2021 8:11am Living Will Yes March 24 9:20am Power of Molder Sweep Yes March 24 022 9:20am Advance Directive Response Recorded Date/ Time Name of Medical Power of Molder Sweep JULIO PARDON August 23, 2022 10:23am Advance Directives Yes May 18, 2021 8:11am Living Will Yes August 23, 2022 10:23am Power of Molder Sweep Yes August 23 10:23am Advance Directive Response Recorded Date/ Time Advance Directives Yes May 18, 2021 7:11am Living Will Yes August 23, 2022 9:23am Power of Molder Sweep Yes August 23 3 9:23am Advance Directive Response Recorded Date/ Time Advance Directives Yes May 18, 2021 8:11am Living Will Yes August 23, 2022 10:23am Power of Molder Sweep Yes August 23 3 10:23am Advance Directive Response Recorded Date/ Time Advance Directives Yes November 20 10:13am Chief Complaint and Reason for Visit Chief Complaint LUMBAR RADICULOPATHY XRAY XRAY lumbar radiculopathy. rx here (request vandana) LUMBAR RAD Chief Complaint LUMBAR RAD XRAY flank pain Chief Complaint LUMBAR RAD XRAY flank pain LUMBAR RAD Chief Complaint XRAY flank pain LUMBAR RAD LEFT ARM PAIN Chief Complaint XRAY flank pain LUMBAR RAD LEFT ARM PAIN facial swelling, diff swallowing Chief Complaint Amb Documentation Reason for Visit Encounter for screen ing for malignant neoplasm of colon Chief Complaint Amb Documentation Postprocedural fever XRAY FEVER POSTOP Reason for Visit Encounter for screen ing for malignant neoplasm of colon Chief Complaint OSTEOARTHRITIS RIGHT KNEE. RX HERE Chief Complaint Admit Date PE PROTOCOL, ELEVATED D-DIMER, CP, SOB S eptember 2024 1:55pm chest pain, SOB, Atherosclerotic heart d isease of March 18, 2025 6:19am Additional Source Comments (unrecognized sect ion and content) No Status Records FoundNo Status Records FoundNo Status Records FoundNo Status Records FoundNo Status Records FoundNo Status Records Found INFORMATION SOURCE (unrecogn ized section and content) DATE CREATED AUTHOR 01/09/2020 [facility] DATE CREATED AUTHOR AUTHOR'S ORGANIZ ATION 01/09/2020 [facility] DATE CREATED AUTHOR AUTHOR'S ORGANIZ ATION 07/16/2021 [facility] DATE CREATED AUTHOR AUTHOR'S ORGANIZ ATION 08/11/2022 [facility] DATE CREATED AUTHOR AUTHOR'S ORGANIZ ATION 10/18/2022 [facility] DATE CREATED AUTHOR AUTHOR'S ORGANIZ ATION [facility]20[facility] Goals (unrecognized section and content) Goals may be documented in a n alternate sectionGoals may be documented in an alternate sectionGoals may be documented in an alternate sectionGoals may be documented in an alternate sectionGoals may be documented in an alternate sectionGoals may be documented in an alternate sectionGoals may be documented in an alternate sectionGoals may be documented in an alternate sectionGoals may be documented in an alternate sectionGoals may be documented in an alternate sectionGoals may be documented in an alternate section Care Teams (unrecognized sec tion and content) Team Status: Active Member Role Status Dates Dr. Estuardo Jimenez DO Family Provider Active Dr. Estuardo Jimenez DO Primary Care Provider Active Team Status: Active Member Role Status Dates Dr. Estuardo Jimenez DO Primary Care Provider Active [facility] Attending Provider Active Team Status: Active Member Role Status Dates Dr. Estuardo Jimenez , DO Primary Care Provider, Referring P rovider Active Dr. Ashok Billingsley , DO Attending Provider, Other Prov ider Active Team Status: Inactive Member Role Status Dates Dr. Estuardo Jimenez DO Primary Care Provider, Referring P rovider Active Dr. Ashok Billingsley , DO Attending Provider Active Team Status: Inactive Member Role Status Dates Dr. Estuardo Jimenez DO Primary Care Provide r, Attending Provider, Referring Provider Active Team Status: Inactive Member Role Status Dates Dr. Estuardo Jimenez DO Primary Care Provider Active Dr. To Randall MD Attending Provider Active Team Status: Active Member Role Status Dates Dr. Estuardo Jimenez DO Primary Care Provide r, Attending Provider, Referring Provider Active Team Status: Inactive Member Role Status Dates Dr. Estuardo Jimenez , DO Primary Care Provider, Attending P rovider Active Team Status: Inactive Member Role Status Dates Dr. Estuardo Jimenez DO Primary Care Provider Active Dr. Ricci Polk MD Attending Provider, Ref erring Provider Active Tie Carrier Relationship Specialty Start Date End Date Estuardo Jimenez DO [id number] [facility] [address] [place] [address] PCP - General Internal Medicine 08/09/22 Team Status: Active Member Role/Relationship Status Dates Dr. Estuardo Jimenez DO Primary care physician Active Team Status: Inactive Member Role/Relationship Status Dates Dr. Estuardo Jimenez DO Primary care physician Active Start: March 15, 2025 End: March 15, 2025 Dr. Julio Padron MD Attending physician Active Start: March 15, 2025 End: March 15, 2025 Dr. Julio Padron MD Referring Provider Active Start: March 15, 2025 End: March 15, 2025 Team Status: Active Member Role/Relationship Status Dates Dr. Estuardo Jimenez DO Primary care physician Active Start: March 15, 2025 Dr. Estuardo Jimenez DO Attending physician Active S tart: March 15, 2025 Dr. Estuardo Jimenez DO Referring Provider Active St art: March 15, 2025 Team Status: Active Member Role/Relationship Status Dates Dr. Estuardo Jimenez DO Primary care physician Active Start: March 18, 2025 Dr. Julio Padron MD Attending physician Active Start: March 18, 2025 Dr. Julio Padron MD Referring Provider Active Start: March 18, 2025 Team Status: Active Member Role/Relationship Status Dates Dr. Estuardo Jimenez DO Primary care physician Active Start: March 18, 2025 Dr. To Randall MD Attending physician Active Start: March 18, 2025 Team Status: Inactive Member Role/Relationship Status Dates Dr. Estuardo Jimenez DO Primary care physician Active Start: March 15, 2025 End: March 15, 2025 Dr. Estuardo Jimenez DO Attending physician Active S tart: March 15, 2025 End: March 15, 2025 Dr. Estuardo Jimenez DO Referring Provider Active St art: March 15, 2025 End: March 15, 2025 Reason for Visit (unrecogniz ed section and content) Reason Comments New Patient Numbness Specialty Diagnoses / Procedures Referred By Contac t Referred To Contact Neurology Diagnoses Radiculopathy, lumbar region Procedures CO OFFICE/OUTPATIENT NEW MODERATE MDM 45-59 MINUTES Julio Padron MD [address] [place] [address] Nadya Waddell MD [address] [place] [address] Referral ID Status Reason Start Date Expiration Date V isits Requested Visits Authorized [id number] Pending Review 06/26/2022 06/26/2024 1 1 FOR RECORDS PERTAINING TO PATIENTS WHO ARE OR HAVE BEEN ENROLLED IN A CHEMICAL DEPENDENCY/SUBSTANCEABUSE PROGRAM, SOME INFORMATION MAY BE OMITTED. This clinical summary was aggregated from multiple sources. Caution should be exercised in using it in the provision of clinical care. This summary normalizes information from multiple sources, and as a consequence, information in this document may materially change the coding, format and clinical context of patient data. In addition, data may be omitted in some cases. CLINICAL DECISIONS SHOULD BE BASED ON THE PRIMARY CLINICAL RECORDS. [facility] [employer] [facility]. provides no warranty or guarantee of the accuracy or completeness of information in this document.
--- NOTE | 2025-05-27 18:37 | CT_ITS ---
PROCEDURE: CT BRAIN/HEAD WITHOUT CONTRAST 05/27/2025 REASON FOR EXAM: HEAD INJURY TECHNIQUE: Procedure Code: CTBR Modality: CT Procedure: BRAIN/HEAD WITHOUT CONTRAST Coronal and Sagittal reconstruction series were provided. One or more dose reduction techniques were used (e.g., Automated exposure control, adjustment of the mA and/or kV according to patient size, use of iterative reconstruction technique. RADIATION DOSE SUMMARY: CTDlvol: 47.06 mGy DLP: 978.55 mGycm COMPARISON: None. FINDINGS: No acute intracranial hemorrhage, extra-axial collection, mass effect or evidence of acute infarct. Mild generalized brain parenchymal volume loss and chronic microangiopathic changes. Atherosclerotic vascular calcifications. Absent tazlina ocular lenses. Mild left frontal scalp contusional changes with laceration. Intact skull base and calvarium. Clear paranasal sinuses and mastoid air cells. CT/Brain/Head without Contrast IMPRESSION: No acute intracranial abnormality. Reading Location: [id number]
[2025-05-27] MEDS: Lidocaine 1% /Epi 1:100 (20ml) 20 ML Vial 10 ML INFILT (18:48)
[2025-05-27 19:37] VITALS: BP 164/8; PULSE 74; RESP 16; TEMP 36.6; O2SAT 99
== END 2025-05-27 19:42 | disposition home or self-care (01) ==
PROVIDERS: Emergency Provider Emergency Medicine; PCP Internal Medicine; Visit Provider Emergency Medicine
DX: S01.01XA Laceration without foreign body of scalp, initial encounter (principal); J44.9 Chronic obstructive pulmonary disease, unspecified; E10.9 Type 1 diabetes mellitus without complications; Z79.4 Long term (current) use of insulin; I10 Essential (primary) hypertension; E78.00 Pure hypercholesterolemia, unspecified; I25.10 Atherosclerotic heart disease of native coronary artery without angina pectoris; Z98.1 Arthrodesis status; Z23 Encounter for immunization; W22.8XXA Striking against or struck by other objects, initial encounter; Z79.899 Other long term (current) drug therapy
CPT/HCPCS: 12002; 70450; 90471; 90715; 99283